=== PATIENT | female | born 1965 | race Caucasian/White ===

== ENCOUNTER → 2017-08-04 11:53 | Outpatient (CLI) | payer OTHER, SELFPAY ==
[2017-08-04 13:11] LABS: T4 Total, Thyroxin 10.5 ug/dL (4.8-13.9); Thyroid Stim Hormone (TSH) 1.49 uIU/mL (0.358-3.74)
== END ==
PROVIDERS: Family Provider Family Medicine; PCP Family Medicine; Visit Provider Internal Medicine Cardiovascular Disease
DX: R07.9 Chest pain, unspecified (principal); I31.3 Pericardial effusion (noninflammatory); I31.4 Cardiac tamponade
CPT/HCPCS: 36415; 84436; 84443

== ENCOUNTER → 2017-08-25 06:35 | Outpatient (CLI) | payer OTHER, SELFPAY ==
--- NOTE | 2017-08-25 06:38 | ECHOCS_ITS ---
Reason For Study: Chest Pain Procedure This was a 2D Doppler, Color Flow transthoracic echocardiogram. The study was technically difficult. Contrast injection was performed. Exam performed in department. Left Ventricle Normal LV size. Moderate concentric left ventricular hypertrophy. Left ventricular systolic function is normal. The estimated ejection fraction is 60 %. Normal diastology for age. No regional wall motion abnormalities noted. Right Ventricle Normal RV size. Normal systolic function. Atria Normal left atrium. Normal right atrium. Bubble contrast study negative for right to left interatrial shunt. Tricuspid Valve Normal tricuspid valve. Mild tricuspid valve insufficiency. Aortic Valve The aortic valve is not well visualized. Pulmonic Valve Normal pulmonic valve. Great Vessels Normal aortic root. The pulmonary artery is normal size. Normal inferior vena cava. Pericardium/Pleural No pericardial effusion. Medication Performed a rapid injection of agitated mix of 9 cc saline and 1cc air to assess for atrial septal defect. Diluted definity 1.5ml given slow IV push to enhance endocardial definition. MMode/2D Measurements & Calculations LVIDd: 4.6 cm IVSd: 1.3 cm Ao root diam: 2.6 cm LVIDs: 2.9 cm LVPWd: 1.5 cm RVDd: 3.7 cm FS: 37.5 % LAV(MOD-sp4): 55.0 ml LVAd ap4: 32.5 cm2 SV(MOD-sp4): 65.2 ml EDV(MOD-sp4): 104.4 ml EDV(sp4-el): 109.9 ml LVAs ap4: 17.1 cm2 ESV(MOD-sp4): 39.2 ml ESV(sp4-el): 40.1 ml EF(MOD-sp4): 62.4 % EF(sp4-el): 63.6 % SV(sp4-el): 69.9 ml LA A4 area: 19.1 cm2 RA A4 area: 13.6 cm2 Time Measurements MV dec time: 0.26 sec Doppler Measurements & Calculations MV E max piotr: 89.4 cm/sec Lat Peak E' Piotr: 10.8 cm/sec Med Peak E' Piotr: 7.2 cm/sec MV A max piotr: 74.6 cm/sec E/E' lat: 8.2 E/E' med: 12.4 MV E/A: 1.2 MV V2 max: 118.5 cm/sec MV P1/2t max piotr: 120.4 cm/sec Ao V2 max: 157.0 cm/sec MV max P.6 mmHg MV P1/2t: 104.4 msec Ao max P.9 mmHg MV V2 mean: 65.1 cm/sec MV dec slope: 337.8 cm/sec2 Ao V2 mean: 107.3 cm/sec MV mean P.0 mmHg MVA(P1/2t): 2.1 cm2 Ao mean P.1 mmHg MV V2 VTI: 37.5 cm Ao V2 VTI: 36.5 cm LV V1 max: 116.1 cm/sec PA V2 max: 142.5 cm/sec TR max piotr: 220.0 cm/sec LV V1 max P.4 mmHg TR max P.4 mmHg LV V1 mean P.8 mmHg LV V1 mean: 78.6 cm/sec LV V1 VTI: 26.7 cm Interpretation Summary Normal LV size. Moderate concentric left ventricular hypertrophy. Left ventricular systolic function is normal. The estimated ejection fraction is 60 %. Normal diastology for age. Mild tricuspid valve insufficiency. Ordering Physician: Kirk Ford Referring Physician: Kirk Ford Performed By: Lance Abreu RCS
--- NOTE | 2017-08-25 11:09 | STRESSREP ---
Stress Test Report Pharmacologic myocardial perfusion stress test. 52-year-old lady with a history of chest pain. Stress protocol: Resting EKG demonstrates sinus bradycardia with a rate of 57 bpm normal intervals and noted resting blood pressure 124/76 meters of mercury. 0.4 mg of regadenoson was infused per usual protocol followed Intravenous saline flush injection. The maximum heart rate attained was 81 bpm which was sinus rhythm and was 48% of maximum predicted heart rate the maximum workload was 1 metabolic equivalent. Patient maintained sinus rhythm throughout the recording. At rest there were no ST or T-wave changes noted suggest ischemia. Peak infusion no ST or T-wave changes were noted suggest ischemia. Resting blood pressure 724/76 with a final blood pressure 112/68. No clinical angina was noted. Myocardial perfusion protocol. 15.0 mCi of technetium 99m sestamibi was injected at rest. 0.4 mg regadenoson was infused per usual protocol peak infusion 44.8 mCi of technetium 99m sestamibi was injected stress images were obtained stress and rest images were reconstructed and compared in the short axis vertical long and horizontal long axis. Gated images were also obtained. Perfusion SPECT analysis: Review of the stress images demonstrate mildly reduced uptake of tracer noted in the anterior wall. The septum inferior wall and lateral wall appear to be well perfused. On the resting images there is improvement on the anterior wall perfusion suggesting anterior wall ischemia of a mild to moderate degree. Gated SPECT analysis: The gated ejection fraction is noted to be 77%. Conclusion: Abnormal pharmacologic myocardial perfusion stress test with evidence of mild to moderate anterior ischemia. Preserved ejection fraction.
== END ==
PROVIDERS: Family Provider Family Medicine; PCP Family Medicine; Visit Provider Internal Medicine Cardiovascular Disease
DX: R07.9 Chest pain, unspecified (principal); I31.3 Pericardial effusion (noninflammatory); I31.4 Cardiac tamponade
CPT/HCPCS: 78452; 93017; 93306; A9500; Q9957; A4216; C8929; J2785

== ENCOUNTER → 2017-08-31 07:51 | Outpatient (CLI) | payer OTHER, SELFPAY ==
--- NOTE | 2017-08-31 07:56 | RAD_ITS ---
STUDY: X-RAY CHEST REASON FOR EXAM: Female, 52 years old. SOB/DYSPNEA; ABNORMAL STRESS TEST TECHNIQUE: Frontal and lateral views of the chest. COMPARISON: None. FINDINGS: The lungs are clear and expanded. There is no demonstrated pleural abnormality. Normal size heart. Normal mediastinum and darin. Normal visualized pulmonary arteries. Normal visualized aortic arch and descending thoracic aorta. Normal visualized thoracic spine. Normal visualized ribs, clavicles, and shoulders. There is no demonstrated abnormality of the visualized soft tissue structures of the upper abdomen. RAD/Chest PA and Lateral IMPRESSION: Normal x-ray examination of the chest. Electronically Signed: Poli Solo MD at 20:15 EDT Tel , Service support ,
== END ==
PROVIDERS: Family Provider Family Medicine; PCP Family Medicine; Visit Provider Internal Medicine Cardiovascular Disease
DX: I48.0 Paroxysmal atrial fibrillation (principal); I10 Essential (primary) hypertension; E66.01 Morbid (severe) obesity due to excess calories; I31.3 Pericardial effusion (noninflammatory); I31.4 Cardiac tamponade; R07.9 Chest pain, unspecified; R06.09 Other forms of dyspnea; R94.39 Abnormal result of other cardiovascular function study
CPT/HCPCS: 71046

== ENCOUNTER → 2017-09-06 09:36 | Day surgery (SDC) | payer OTHER, SELFPAY ==
[2017-08-31 08:47] LABS: Absolute Lymphocyte Count 2.06 X10^3/ul (0.83-4.51); Absolute Neutrophil Count 5.2 X10^3/uL (2.0-7.7); Basophil# 0.03 X10^3/uL; Basophil% 0.4 % (0-1); Eosinophil# 0.21 X10^3/uL; Eosinophils% 2.6 % (0-5); Hematocrit 34.9 % (37-47); Hemoglobin 11.6 g/dl (12.0-15.0); Lymphocyte # 2.06 X10^3/ul (4.0); Lymphocyte % 25.6 % (19-41); Mean Corp Hgb Conc 33.2 g/gl (32-36); Mean Corpuscular Hgb 29.2 pg (27.0-32.0); Mean Corpuscular Volume 87.9 fL (81-99); Monocyte# 0.53 X10^3/uL; Monocyte% 6.6 % (0-10); Neutrophil # 5.22 X10^3/uL (2.7-7.7); Neutrophil % 64.7 % (47-70); Platelet Count 266 K/mm3 (150-450); RBC Distribution Width SD 40.6 fl (35.1-43.9); Red Blood Count 3.97 M/mm3 (4.2-5.4); White Blood Count 8.1 K/mm3 (4.4-11.0)
[2017-08-31 08:51] LABS: POSITIVE COUNT NO; POSITIVE DIFFERENTIAL NO; POSITIVE MORPHOLOGY NO
[2017-08-31 08:54] LABS: International Normalized Ratio 0.9; Prothrombin Time (Protime)PT. 12.4 SECONDS (11.7-14.9)
[2017-08-31 09:04] LABS: Anion Gap 6 (5-15); BUN 24 mg/dL (7-18); BUN/Creat Ratio 29.8 RATIO (10-20); Calcium,Total 8.6 mg/dL (8.5-10.1); Chloride 104 mmol/L (98-107); Creatinine, Serum 0.81 mg/dL (0.55-1.02); EST Glomerular Filtration Rate 79 mL/min (>60); Est Glom Filt Rate - Afr Amer 95 mL/min (>60); Glucose 119 mg/dL (74-106); Potassium 4.2 mmol/L (3.5-5.1); Sodium Level 137 mmol/L (136-145)
[2017-09-03 12:22] VITALS: BMI 51.2
--- NOTE | 2017-09-06 10:35 | PN_ITS ---
Progress Note HPI Details: SHADE HUNTER, is a 52 F who presents to the clinical laboratory assistant for a left heart catheterization. She has a history of pericardial effusion status post pericardial window in 2014 and hypertension. She expressed some chest pain after last office visit and underwent a nuclear stress test. This was considered to be abnormal. Pt. denies chest, arm, jaw, or neck discomfort. She continues to have back pain. Her exercise tolerance is stable. Pt. denies symptoms of CHF, palpitations, lightheadedness, near syncope, or syncopal episodes. Pt. denies edema or claudication issues. Pt. denies orthopnea, PND, fever, chills, blood in urine, blood in stool, myalgia, or unexplainable fatigue. She states occasional dizziness. Intake Vital Signs 09/06/17 Height 5 ft 5 in 09/06/17 Weight: 308 lb 09/06/17 Body Mass Index (BMI) 51.2 09/06/17 Blood Pressure 144/72 09/06/17 Blood Pressure Location Lt radial 09/06/17 Blood Pressure Position Semi-Fowlers 09/06/17 Respiratory Rate 16 09/06/17 Pulse Rate 60 09/06/17 Pulse Source Monitor 09/06/17 Temperature 97.6 F 09/06/17 Pulse Ox 99 09/06/17 Oxygen Delivery Method room air Intake Visit Reasons: Amb Documentation Allergies sulfamethoxazole Adverse Reaction (Verified 08/04/17 10:53) Unknown trimethoprim Adverse Reaction (Verified 08/04/17 10:53) Unknown Medications aspirin 81 mg tablet,delayed release 81 mg PO QDAY 08/03/17 [History Confirmed 09/03/17] lisinopril 40 mg tablet 40 mg PO QDAY 08/03/17 [History Confirmed 09/03/17] albuterol sulfate HFA 90 mcg/actuation aerosol inhaler 2 puff INHALATION Q6H PRN 08/04/17 [History Confirmed 09/03/17] citalopram 20 mg tablet 40 mg PO QDAY tab 08/04/17 [History Confirmed 09/03/17] fluticasone 50 mcg/actuation blister powder for inhalation 1 inh INHALATION QDAY ea 08/04/17 [History Confirmed 09/03/17] insulin aspart U-100 100 unit/mL subcutaneous pen 26 unit SC TID ml 08/04/17 [ History Confirmed 09/03/17] insulin glargine (U-100) 100 unit/mL (3 mL) subcutaneous pen 80 unit SC QDAY ml 08/04/17 [History Confirmed 09/03/17] lorazepam 1 mg tablet 1 mg PO QDAY PRN tab 08/04/17 [History Confirmed 09/03/17 ] clopidogrel 75 mg tablet 75 mg PO QDAY #30 tab 08/30/17 [Rx Confirmed 09/03/17] PFSH Medical History Abnormal cardiovascular stress test (Acute) Dyspnea on exertion (Acute) Chest pain (Acute) Pericardial effusion with cardiac tamponade (Resolved ~02/2014) Morbid obesity (Chronic) Paroxysmal atrial fibrillation (Chronic) Hypertension (Chronic) Depression (Chronic) Nicotine abuse (Chronic) Obstructive sleep apnea (Chronic) Type 2 diabetes mellitus without complications (Chronic) Surgical History H/O dilation of urethra (Chronic) History of appendectomy (Chronic) History of cataract surgery (Chronic) Hx of cholecystectomy (Chronic) Status post LASIK surgery of both eyes (Chronic) pericardial window (Chronic 02/16/14) Family History Mother Myocardial infarction age 71 CAD (coronary artery disease) stents Social History Smoking Status: Former smoker ROS Const Const: Positive for fatigue; negative for weakness, difficulty sleeping, frequent falls, headache(s) or excessive sweating Eyes Eyes: Negative for loss of peripheral vision, transient loss of vision, blurry vision or double vision ENT ENT: Positive for dizziness; negative for headache(s) or balance problems Cardio Chest Pain: No Edema: None Muscle aches with walking: None Resp Respiratory: Positive for SOB with activity (increase SOB with activity, especially with warm weather); negative for SOB at rest, SOB orthopnea\SOB lying down or paroxysmal nocturnal dyspnea GI GI: Negative nausea or heartburn : Negative for hematuria Musc Musc: Negative for muscle aches/ myalgia, muscle weakness, joint pain or balance problems Skin Skin: Negative non-healing lesions, unusual bruising or rash Neuro Neuro: Positive for dizziness; negative for weakness, frequent falls, headache(s), blurry vision, double vision , lightheadedness, near syncope or syncope Keven Hematologic/Lymphatic: Negative for easy bruising Endo Endo: Positive for fatigue; negative for excessive sweating Psych Psych: Negative for anxiety or depression Allergy Allergy/Immunology: Negative for rash Cardiology Exam Const Appearance: cooperative, healthy appearing, well developed, well groomed and no acute distress Nutritional Appearance: well nourished and obese Orientation: alert, awake and oriented x3 Head Head: normal to inspection, normocephalic and atraumatic Ears: hearing grossly normal bilaterally and external ears normal Nose: external nose normal, nasal mucous membranes and turbinates normal, nares normal, septum normal, no nasal discharge Face and Sinus: face symmetric Mouth: oral mucosae normal, tongue normal, oropharynx normal and moist mucous membranes Teeth and gingiva: dentition normal Throat: posterior oropharynx normal, tonsils normal and uvula midline Eyes General: appearance normal, both eyes and all related structures Eyelids: eyelids normal Conjunctivae: conjunctivae normal Pupils: PERRL, normal by confrontation and accommodation normal EOM: EOM intact bilaterally Neck Neck: normal visual inspection, trachea midline and no JVD JVD: +5 Carotids: normal carotid upstroke and bounding pulses Chest Chest inspection: normal inspection of the chest, symmetric chest movement and normal respiratory effort Auscultation: Bilateral: Clear to Auscultation Cardio Palpation: normal PMI Rate: regular rate Rhythm: regular rhythm Heart sounds: S1 normal, S2 normal and normal, physiologic split S2; negative rub, gallop or murmur GI GI: normal to inspection, soft, no hepatosplenomegaly, bowel sounds present and obese Neuro General: alert, awake, oriented x3, no focal sensory deficit, gait normal and moves all extremities Skin Skin: no rashes or lesions noted Extremities Pulses: Normal: Right Femoral Pulse, Left Femoral Pulse, Right Dorsalis Pedis Pulse, Left Dorsalis Pedis Pulse, Right Posterior Tibial Pulse, Left Posterior Tibial Pulse, Right Radial Pulse, Left Radial Pulse Lower Extremity Edema: None: Bilateral Musculoskel Musculoskeletal: No joint tenderness Psych Psychological: normal affect Supplemental Info Echocardiogram from August 2017 showed normal LV size, moderate concentric LVH, estimated ejection fraction of 60%, normal diastology for age, and mild tricuspid valve insufficiency. Stress test from August 2017 was considered an abnormal pharmacologic myocardial perfusion stress test with evidence of mild to moderate anterior ischemia with a preserved ejection fraction of 77%. Assessment & Plan 1. Abnormal stress test R94.39 Plan - CHHAYA Lopez Patient's stress test from August 2017 was considered an abnormal pharmacologic myocardial perfusion stress test with evidence of mild to moderate anterior ischemia. She will undergo a heart catheterization for further evaluation. Further recommendation will be made based on results of this test. 2. Pericardial effusion with cardiac tamponade I31.3; I31.4 Plan - CHHAYA Lopez Patient's echocardiogram in August 2017 showed an estimated ejection fraction of 60%, mild tricuspid valve insufficiency, and no cardiac tamponade. Her TSH and T4 were noted to be normal after last office visit. She will continue current medications and we will continue to monitor. 3. Essential hypertension I10 Plan - CHHAYA Lopez Her blood pressure is slightly elevated. We will continue to monitor this. We will not make any medication regimen changes and this time. Plan Detail Additional Comments - CHHAYA Lopez Discussed the above patient with Dr. Ford, he agrees with the plan of care. Thank you for allowing us to participate in the patients plan of care, if you have any questions please do not hesitate to call. This note was generated using a voice recognition system and there may be incorrect words, spelling or punctuation that were not noted when reviewing the office note prior to saving. Coding Diagnoses Abnormal stress test R94.39 Pericardial effusion with cardiac tamponade I31.3; I31.4 Essential hypertension I10 Hypertension type: essential hypertension Coding Diagnoses Abnormal stress test R94.39 Pericardial effusion with cardiac tamponade I31.3; I31.4 Essential hypertension I10 Hypertension type: essential hypertension
--- NOTE | 2017-09-06 11:19 | CL.D_ITS ---
Patient Name: SHADE HUNTER Study Date: 09/06/2017 Performing: Kirk Ford MD Ht: 65 inches 165 cm : 1965 Wt: 309.1 lbs 140 kg Age: 52 Gender: female BSA: 2.38 PROCEDURE(S) PERFORMED [id number]-FBH/COR/LV CLINICAL PROFILE AND INDICATIONS Indications: Suspected CAD Heart Failure: None CONCLUSIONS Normal coronary arteries RECOMMENDATIONS Medical therapy DESCRIPTION OF PROCEDURE The patient arrived to the procedure lab. The risks and benefits of the procedure as well as a full d escription of our services here and current unavailability of surgical backup were fully explained to the patient and/or their significant other prior to the catheterization. The Timeout was completed, verifying the correct patient and procedure. The patient's procedural site was prepped and draped in the usual fashion. Local anesthetic was given subcutaneously to right radial region with Lidocaine 2% . Using a modified Seldinger technique, arterial access was obtained via the right radial artery, a 6 Fr sheath was inserted. Right Coronary Artery selective angiography was then performed in multiple v iews using a 5 Fr. 4.0 Malone catheter. Left Coronary Artery selective angiography was performed in mu ltiple views using a 5 Fr. 4.0 Malone catheter. Left Ventriculography was performed in MOULTON projection using a 5 Fr. Pigtail catheter. LV to AO pullback pressures were then recorded.The arterial sheath wa s pulled and a TR Band was applied for hemostasis-15 cc air CORONARY ANGIOGRAPHY DOMINANCE: Right Dominant LEFT HEART ASSESSMENT Left Ventricular Ejection Fraction: by LV Gram 60 % Normal LV wall motion Normal Left Ventricular systolic function LEFT MAIN: Angiographically normal LEFT ANTERIOR DECENDING ARTERY: Mild luminal irregularities CIRCUMFLEX ARTERY: Mild luminal irregularities RIGHT CORONARY ARTERY: Angiographically normal AORTIC ROOT: Angiographically normal COMPLICATIONS No Complications PROCEDURE MEDICATIONS Fentanyl 50 mcg IV Versed 1 mg IV Oxygen: 2 L/min via nasal cannula Heparin diluted in 23cc Heparinized saline. Patient given 10cc IA of this solution. 09/06/2017 11:00: 20 Verapamil 2.5mg, Ntg 100mcgs, 2000 units of Heparin diluted in 23cc Heparinized saline. Patient give n 10cc IA of this solution. 09/06/2017 11:00:20 SUMMARY OF HEMODYNAMIC DATA Time AIR REST ECG 10:03:19 AO 129/69 (93) SA 11:03:08 LV 131/2, 16 11:09:53 LV 132/5, 18 11:10:00 LV 129/3, 20 11:11:19 LVp 134/4, 19 11:11:23 AOp 140/69 (98) 11:11:28 Signed By Kirk Ford MD On 09/06/2017 11:18:32 Kirk Ford MD
== END ==
PROVIDERS: Family Provider Family Medicine; PCP Family Medicine; Visit Provider Internal Medicine Cardiovascular Disease
DX: R94.39 Abnormal result of other cardiovascular function study (principal); I31.3 Pericardial effusion (noninflammatory); I31.4 Cardiac tamponade; I10 Essential (primary) hypertension; I48.0 Paroxysmal atrial fibrillation; E66.01 Morbid (severe) obesity due to excess calories; Z68.43 Body mass index [BMI] 50.0-59.9, adult; E11.9 Type 2 diabetes mellitus without complications; F32.9 Major depressive disorder, single episode, unspecified; Z87.891 Personal history of nicotine dependence; Z79.82 Long term (current) use of aspirin; Z79.51 Long term (current) use of inhaled steroids; Z79.4 Long term (current) use of insulin
CPT/HCPCS: 36415; 80048; 85025; 85610; 93458; 99152; J7040; Q9967; C1769; C1894

== ENCOUNTER 2018-09-23 17:10 | Emergency (ER) | payer OTHER, SELFPAY ==
[2018-01-16 12:29] VITALS: BMI 53.2
[2018-09-23 17:14] VITALS: BP 168/86; PULSE 75; RESP 20; TEMP 36.2; O2SAT 99; BMI 56.4
--- NOTE | 2018-09-23 17:19 | ED.RN ---
CALLED JAYSON FROM [facility] AND SHE IS STATES THE PT DOES NOT NEED TO HAVE DRUG SCREEN TEST.
--- NOTE | 2018-09-23 17:34 | CT_ITS ---
STUDY: CT BRAIN WITHOUT CONTRAST REASON FOR EXAM: Female, 53 years old. Injury at work. RADIATION DOSAGE (If Supplied By Facility): CTDIvol = ( 44.99 ) mGy, DLP = ( 796.11 ) mGycm TECHNIQUE: Transaxial CT imaging of the brain was performed without administration of intravenous contrast material. Individualized dose optimization techniques were used for this CT. COMPARISON: No relevant priors. FINDINGS: Normal soft tissue structures. Normal calvarium. Normal size ventricles and extra-axial spaces for the patient's age. Normal white matter tracts of the cerebral hemispheres. Normal basal ganglia and thalami. Normal brainstem. Normal cerebellum. There is no intracranial hemorrhage. There are no findings of an acute ischemic infarction. Normal visualized paranasal sinuses. CT/Brain/Head without Contrast IMPRESSION: Normal unenhanced CT scan of the brain. Electronically Signed: Darin Newton DO at 18:20 EDT Tel [phone], Service support ,
--- NOTE | 2018-09-23 17:36 | CT_ITS ---
STUDY: CT CERVICAL SPINE WITHOUT CONTRAST REASON FOR EXAM: Female, 53 years old. Injury at work. RADIATION DOSAGE (If Supplied By Facility): CTDIvol = ( 34.38 ) mGy, DLP = ( 590.06 ) mGycm TECHNIQUE: High resolution transaxial imaging was performed without contrast material. Sagittal and coronal images were reconstructed. Individualized dose optimization techniques were used for this CT. COMPARISON: None FINDINGS: Normal craniovertebral junction. Normal anterior atlantoaxial articulation. Normal odontoid process. There is straightening of the normal cervical lordosis. Normal vertebral bodies and posterior osseous elements. C2-3: Normal endplates. Normal disc height and morphology. Normal central canal and intervertebral neuroforamina. C3-4: Normal endplates. Normal disc height and morphology. Normal central canal and intervertebral neuroforamina. C4-5: Normal endplates. Normal disc height and morphology. Normal central canal and intervertebral neuroforamina. C5-6: Mild loss of disc height with minimal endplate spondylosis. Facet and uncovertebral joint degenerative change.. Normal central canal and intervertebral neuroforamina. C6-7: Normal endplates. Mild loss of disc height. Facet joint degenerative change. Normal central canal and intervertebral neuroforamina. C7-T1: Normal endplates. Normal disc height and morphology. Normal central canal and intervertebral neuroforamina. Normal visualized soft tissue structures. CT/Spine Cervical without Contras IMPRESSION: No evidence of acute fracture or dislocation. There is straightening of the cervical lordosis which may be positional or due to muscular strain. Electronically Signed: Darin Newton DO at 18:38 EDT Tel [phone], Service support ,
--- NOTE | 2018-09-23 17:39 | ED.VISSUMM ---
- ER Visit Summary Date of Service: 09/23/18 Chief Complaint: Fall History of Present Illness: The patient is a 53 F who presents with a fall that occurred today. Patient states she went to sit down and missed a chair. Patient states she fell back. Patient thinks she hit her head but did not lose consciousness. Patient complains of pain in her head, neck, back, right hand, and right ankle. Patient describes the pain is dull. Patient states her headache is worse with bright lights. Patient denies any paresthesias or weakness. Patient denies any nausea or vomiting. Patient states she was able to ambulate after the fall. Physical Examination: Vital signs are stable. Patient is afebrile. Patient is in no acute distress. Oral mucosa is pink and moist. Neck is supple. Trachea is midline. There is no JVD noted. Heart was regular rate and rhythm. Lungs are clear and equal bilaterally. Abdomen is soft and nontender. Cranial nerves II through XII are intact. Strength is 5/5 bilaterally upper and lower extremities. There are no sensory deficits noted. There is mild tenderness over the occiput and cervical spine. There is no bony crepitance or step-off. There is good range of motion. There is no tenderness over the left ankle or left hand. There is good range of motion of the upper and lower extremities. Test Results: CT scan of the brain and cervical spine were obtained and were within normal limits. Emergency Department Course and Treatment: Patient was ordered IV fluids, Reglan, and morphine. Patient refused IV fluids and IV medications. Patient requested Naprosyn instead. Patient was given a dose of Naprosyn. Patient was feeling better on reevaluation. Patient was instructed to rest in a dark quiet room. Patient was instructed to follow-up with her primary care physician in 5 to 7 days. Patient understood and was agreeable with the plan. All questions were answered. Disposition: Discharge home Impression: 1. Headache 2. Cervical strain 3. Fall This note was generated with [employer] dictation software. It may contain incorrect words, spelling, and punctuation that were not noted in review of the chart prior to signing ED Disposition - Plan for ED Patient: Disposition: Home or Assisted Living Diagnosis: Headache, Cervical strain, acute Instructions: FALL, Mechanical, HEADACHE, Unspecified, Neck Sprain/Strain Referrals: Alex Chavez MD [Primary Care Provider] - 5-7 Days
[2018-09-23] MEDS: Naproxen 250 MG Tablet 500 MG PO (18:08)
--- NOTE | 2018-09-23 18:22 | ED.RN ---
PT REFUSES IV, MORPHINE AND REGLAN. REQUESTED NAPROXEN INSTEAD. DR MIN MADE AWARE, ORDER ENTERED.
--- NOTE | 2018-09-23 18:56 | ED.RN ---
RN CALLED FOR EKG, PULLED OLD EKGS FOR
--- NOTE | 2018-09-23 19:13 | EKG12_ITS ---
Test Reason : FALL/CP Blood Pressure : / mmHG Vent. Rate : 076 BPM Atrial Rate : 076 BPM P-R Int : 182 ms QRS Dur : 094 ms QT Int : 390 ms P-R-T Axes : 053 014 051 degrees QTc Int : 438 ms Normal sinus rhythm Normal ECG Confirmed by TAMRA ORDOÑEZ, LUIS ([id number]), editor sound MK SEYMOUR ([id number]) on 09/29/2018 1:08:47 PM Referred By: Confirmed By:LUIS BARBOZA MD
[2018-09-23 20:00] VITALS: BP 159/67; PULSE 74; RESP 16; O2SAT 96
[2018-09-23 20:27] VITALS: BP 159/67; PULSE 74; RESP 16; O2SAT 96
== END 2018-09-23 20:30 | disposition home or self-care (01) ==
PROVIDERS: Emergency Provider Emergency Medicine; Family Provider Family Medicine; PCP Family Medicine
DX: R51 Headache (principal); S16.1XXA Strain of muscle, fascia and tendon at neck level, initial encounter; E66.9 Obesity, unspecified; J45.909 Unspecified asthma, uncomplicated; E11.9 Type 2 diabetes mellitus without complications; I10 Essential (primary) hypertension; F32.9 Major depressive disorder, single episode, unspecified; Z79.4 Long term (current) use of insulin; Z79.51 Long term (current) use of inhaled steroids; Z79.82 Long term (current) use of aspirin; Z79.899 Other long term (current) drug therapy; W07.XXXA Fall from chair, initial encounter; Y93.89 Activity, other specified; Y92.89 Other specified places as the place of occurrence of the external cause; Y99.8 Other external cause status
CPT/HCPCS: 70450; 72125; 93005; 99283

== ENCOUNTER → 2018-10-11 | Outpatient (CLI) | payer OTHER, SELFPAY ==
[2018-10-06 09:45] VITALS: BMI 56.4
--- NOTE | 2018-10-11 17:12 | RAD_ITS ---
STUDY: X-RAY - LUMBAR SPINE REASON FOR EXAM: Female, 53 years old. Status post fall 2 weeks ago TECHNIQUE: 3 view(s) of the lumbar spine were obtained. COMPARISON: None FINDINGS: Normal lumbar lordosis. There is no substantial scoliosis. There is grade 1 anterolisthesis at L4-L5 and a suggestion of a pars defect and/or degenerative change. There is mild spondylosis. Normal vertebral bodies and endplates. Normal disc space heights. There is postoperative change in the right upper quadrant status post cholecystectomy. RAD/Lumbar Spine 2 or 3 Views IMPRESSION: Age-indeterminate grade 1 anterolisthesis L4-L5. Facet arthropathy. No evidence of acute loss of height. Electronically Signed: Estrella Avila MD at 19:03 EDT Tel , Service support ,
== END | disposition home or self-care (01) ==
LOC: MTRAD 17:12
PROVIDERS: Family Provider Family Medicine; PCP Family Medicine; Referring Provider Nurse Practitioner Family; Visit Provider Nurse Practitioner Family
DX: S30.0XXA Contusion of lower back and pelvis, initial encounter (principal); S39.012A Strain of muscle, fascia and tendon of lower back, initial encounter
CPT/HCPCS: 72100

== ENCOUNTER → 2021-11-01 | Outpatient (CLI) | payer OTHER, SELFPAY ==
[2021-11-01 10:20] LABS: ALB/GLOB Ratio 0.7 RATIO (0.9-2.4); AST(SGOT) 10 U/L (15-37); Alanine Aminotransfer ALT/SGPT 17 U/L (13-56); Alkaline Phosphatase 103 U/L (45-117); Anion Gap 5 (5-15); BUN 21 mg/dL (7-18); BUN/Creat Ratio 24.4 RATIO (10-20); Calcium,Total 8.7 mg/dL (8.5-10.1); Chloride 105 mmol/L (98-107); Cholesterol 176 mg/dL (200); Creatinine, Serum 0.86 mg/dL (0.55-1.02); EST Glomerular Filtration Rate 72 mL/min (>60); Est Glom Filt Rate - Afr Amer 87 mL/min (>60); Globulin 4.3 g/dL (2.2-4.2); Glucose 203 mg/dL (74-106); High Density Lipoprotein 45 mg/dL; Potassium 5.4 mmol/L (3.5-5.1); Protein, Total 7.3 g/dL (6.4-8.2); Sodium Level 139 mmol/L (136-145); Triglycerides 85 mg/dL; Very Low Density Lipoprotein 17 mg/dL (5-40)
== END | disposition home or self-care (01) ==
LOC: LAB 09:41
PROVIDERS: PCP Family Medicine; Referring Provider Nurse Practitioner Family; Visit Provider Nurse Practitioner Family
DX: E11.9 Type 2 diabetes mellitus without complications (principal); I27.20 Pulmonary hypertension, unspecified; I10 Essential (primary) hypertension; G47.33 Obstructive sleep apnea (adult) (pediatric); E78.2 Mixed hyperlipidemia
CPT/HCPCS: 36415; 80053; 80061; 83036

== ENCOUNTER → 2022-06-03 | Outpatient (CLI) | payer OTHER, SELFPAY ==
[2022-06-03 10:58] LABS: ALB/GLOB Ratio 0.7 RATIO (0.9-2.4); AST(SGOT) 18 U/L (15-37); Alanine Aminotransfer ALT/SGPT 25 U/L (13-56); Albumin, Serum 2.9 g/dL (3.2-5.0); Alkaline Phosphatase 130 U/L (45-117); Anion Gap 3 (5-15); BUN 18 mg/dL (7-18); BUN/Creat Ratio 19.4 RATIO (10-20); Calcium,Total 8.7 mg/dL (8.5-10.1); Chloride 102 mmol/L (98-107); Cholesterol 127 mg/dL (200); Creatinine, Serum 0.93 mg/dL (0.55-1.02); EST Glomerular Filtration Rate 66 mL/min (>60); Est Glom Filt Rate - Afr Amer 80 mL/min (>60); Globulin 4.1 g/dL (2.2-4.2); Glucose 173 mg/dL (74-106); High Density Lipoprotein 52 mg/dL; Potassium 4.5 mmol/L (3.5-5.1); Sodium Level 132 mmol/L (136-145); Triglycerides 81 mg/dL; Very Low Density Lipoprotein 16 mg/dL (5-40)
[2022-06-03 10:59] LABS: Vitamin D,25 Hydroxy 23.1 ng/mL
[2022-06-03 11:29] LABS: Hemoglobin A1c 11.8 % (3.8-5.6)
== END | disposition home or self-care (01) ==
PROVIDERS: PCP Nurse Practitioner Family; Referring Provider Nurse Practitioner Family; Visit Provider Nurse Practitioner Family
DX: E78.2 Mixed hyperlipidemia (principal); E11.9 Type 2 diabetes mellitus without complications; E55.9 Vitamin D deficiency, unspecified
CPT/HCPCS: 36415; 80053; 80061; 82306; 83036

== ENCOUNTER 2022-09-27 15:25 | Emergency (ER) | payer OTHER, SELFPAY ==
[2022-09-27 15:33] VITALS: BP 150/120; PULSE 94; RESP 15; TEMP 36.6; O2SAT 95
[2022-09-27 15:37] VITALS: BMI 45.3
--- NOTE | 2022-09-27 15:42 | EX.ED.DYSGE1 ---
HPI History of Present Illness Chief Complaint: Anxiety Narrative Narrative: Patient presents with an episode of feeling lightheaded, some nausea and felt like she was going to pass out. She was breathing fast and had tingling in her fingers and toes. This seems to have subsided. Apparently she did not eat or drink much yesterday she felt weak, she felt better today and went to work. She does have a history of anxiety and depression, she does also have a history of of pericardial effusion with history of cardiac tamponade however she has a pericardial window. She has no fevers or chills. No headache. She did not fall. There is no vertiginous symptoms and she does not feel off balance. [facility] Medical History (Updated 09/27/22 @ 16:[address] Issac Jose MD) Abnormal cardiovascular stress test Arthritis Asthma Chest pain Chronic neck and back pain Depression Diarrhea Essential (primary) hypertension Hemorrhoids Incontinence Knee pain Lung disease Morbid obesity Nicotine abuse Obstructive sleep apnea Paroxysmal atrial fibrillation Pericardial effusion with cardiac tamponade (~02/2014) Type 2 diabetes mellitus without complications Home Medications aspirin 81 mg tablet,delayed release (Adult Aspirin Regimen) 81 mg PO QDAY 08/03/17 [History Last Taken 09/06/17] lisinopril 40 mg tablet 40 mg PO QDAY 08/03/17 [History Last Taken 09/06/17] albuterol sulfate 90 mcg/actuation aerosol inhaler 2 puff inhalation Q6H PRN Anxiety 08/04/17 [History Last Taken Unknown] citalopram 20 mg tablet 40 mg PO QDAY 08/04/17 [History Last Taken Unknown] fluticasone propionate 50 mcg/actuation blister powder for inhalation (Flovent Diskus) 1 inh inhalation QDAY 08/04/17 [History Last Taken Unknown] insulin aspart U-100 100 unit/mL (3 mL) subcutaneous pen (Novolog FlexPen U-100 Insulin aspart) 26 unit subcut TID 08/04/17 [History Last Taken Unknown] insulin glargine 100 unit/mL (3 mL) subcutaneous pen (Lantus Solostar U-100 Insulin) 80 unit subcut QDAY 08/04/17 [History Last Taken Unknown] lorazepam 1 mg tablet 1 mg PO QDAY PRN Anxiety 08/04/17 [History Last Taken Unknown] clopidogrel 75 mg tablet (Plavix) 75 mg PO QDAY #30 tabs 08/30/17 [Rx Last Taken 09/06/17] Allergy/AdvReac Type Severity Reaction Status Date / Time Antihistamines - Alkylamine Allergy Shortness Verified 09/27/22 15:35 of breath sulfamethoxazole AdvReac Unknown Verified 09/27/22 15:35 trimethoprim AdvReac Unknown Verified 09/27/22 15:35 Family History Mother Myocardial infarction age 71 CAD (coronary artery disease) stents Surgical History H/O dilation of urethra History of appendectomy History of cataract surgery History of left heart catheterization (09/06/17) Hx of cholecystectomy pericardial window (02/16/14) Status post LASIK surgery of both eyes Social History Smoking Status: Former smoker ROS ROS ED ROS Narrative Past medical history: Reviewed Medications: Reviewed Social history: Noncontributory Review of systems: All systems negative except as indicated General: No fever. Lightheadedness as in HPI Eyes: No visual changes ENT: No upper airway congestion, normal voice Neck: No neck pain Cardiovascular: No chest pain Respiratory: No shortness of breath or cough Gastrointestinal: No abdominal pain, nausea vomiting or diarrhea Musculoskeletal: Denies myalgias no difficulty with ambulation Skin: No rash Neurological: No memory loss, confusion or any focal weakness EXAM Physical Exam Narrative Exam Narrative: Physical exam General: Well nourished, Well developed, No Acute Distress Head: Normocephalic, Atraumatic Eyes: Conjunctiva not pale ENT: Dry mucous membranes Neck: Supple, Nontender, No lymphadenopathy Cardiovascular: Regular rate, Regular rhythm Respiratory: No distress, CTA bilaterally Abdomen: Soft, Nontender, Nondistended Back: Nontender, Normal Inspection. Negative for: CVA tenderness Extremities: Nontender, No edema Skin: Normal color, No rash Neurological: Alert, Normal Strength, Normal Sensation Const Vital Signs: 09/27/22 15:33 Temperature 98 F Temperature Source Temporal Pulse Rate 94 Respiratory Rate 15 Blood Pressure 150/120 H Blood Pressure Mean 130 Pulse Ox 95 MDM MDM MDM Narrative Medical decision making narrative: EKG: Sinus rhythm with a rate of 92. Normal MT interval. QTc is prolonged at 489. No ischemic changes. Interpreted by emergency doctor. Telemetry: Sinus rhythm with a rate in the 90s without ectopy. Patient's initial blood pressure was quite elevated however this improved significantly. She is found to be hyperglycemic and has a very slight JAYDEN. This is likely secondary to the blood sugar as well as her not drinking much water at all yesterday. Since first seeing her she has developed a left eye floater which she has had in the past. I will follow-up with ophthalmology. I do not believe stat ophtho consult is needed, she has no vision loss she does not feel like the curtain is closing. Otherwise she needs her blood sugar control. She knows how to do this I talked to her about it. She is quite dehydrated and I considered admission however I believe if she gets 2 L of fluids and she goes home and drinks water she should be improving on her own. If anything changes she is to return she understands this. I talked to family member who is also in the room and gave me history. Lab Data Labs: Laboratory Results - last 24 hr 09/27/22 15:52 WBC 13.3 H RBC 4.01 L Hgb 11.4 L Hct 35.6 L MCV 88.8 MCH 28.4 MCHC 32.0 RDW Std Deviation 41.9 RDW Coeff of Linda 12.8 Plt Count 394 MPV 9.6 Immature Gran % (Auto) 0.400 Neut % (Auto) 75.1 H Lymph % (Auto) 16.8 L [place] % (Auto) 6.3 Eos % (Auto) 0.9 Baso % (Auto) 0.5 Absolute Neuts (auto) 10.0 H Absolute Lymphs (auto) 2.24 Nucleated RBC % 0 Sodium 131 L Potassium 4.2 Chloride 98 Carbon Dioxide 27.0 Anion Gap 6 BUN 22 H Creatinine 1.60 H Estim Creat Clear Calc 34.07 Est GFR (MDRD) Af Amer 42 L Est GFR (MDRD) Non-Af 35 L BUN/Creatinine Ratio 13.8 Glucose 475 H* Calcium 8.4 L Total Bilirubin 0.60 AST 15 ALT 22 Alkaline Phosphatase 128 H Troponin I High Sens 26 Total Protein 6.6 Albumin 2.9 L Globulin 3.7 Albumin/Globulin Ratio 0.8 L Discharge Plan Triage Chief Complaint: Anxiety ED Provider: Issac Jose Dx/Rx/DC Orders Clinical Impression: Acute dehydration, Morbid obesity, Essential (primary) hypertension, JAYDEN (acute kidney injury), Acute hyperglycemia, Near syncope, Vitreous floaters of left eye Instructions: Blood Sugar Check Steps, ED Diabetic Hyperglycemia, ED Dehydration (Adult) Prescriptions: No Action insulin glargine [Lantus Solostar U-100 Insulin] 100 unit/mL (3 mL) insulin pen 80 unit SC QDAY insulin aspart U-100 [Novolog FlexPen U-100 Insulin] 100 unit/mL insulin pen 26 unit SC TID lorazepam 1 mg tablet 1 mg PO QDAY PRN (Reason: Anxiety) fluticasone propionate [Flovent Diskus] 50 mcg/actuation blister with device 1 inh INHALATION QDAY albuterol sulfate 90 mcg/actuation HFA aerosol inhaler 2 puff INHALATION Q6H PRN (Reason: Anxiety) aspirin [Adult Aspirin Regimen] 81 mg tablet,delayed release (DR/EC) 81 mg PO QDAY lisinopril 40 mg tablet 40 mg PO QDAY citalopram 20 mg tablet 40 mg PO QDAY clopidogrel [Plavix] 75 mg tablet 75 mg PO QDAY Qty: 30 1RF Primary Care Provider: Collins Mccall NP Referrals: Reginald Robles MD [Med Staff - Active Staff] - (for an eye appointment tomorrow) Collins Mccall CROSSCUTTER, CROSSCUTTER-C [Primary Care Provider] - 3-5 Days Disposition Disposition: Home, Self Care
[2022-09-27] MEDS: 0.9% Normal Saline 1,000 ML 1000 ML IV (16:00)
[2022-09-27 16:02] LABS: Absolute Lymphocyte Count 2.24 X10^3/uL (0.83-4.51); Basophil# 0.07 X10^3/uL; Basophil% 0.5 % (0-1); Eosinophil# 0.12 X10^3/uL; Eosinophils% 0.9 % (0-5); Hematocrit 35.6 % (37-47); Hemoglobin 11.4 g/dL (12.0-15.0); Lymphocyte # 2.24 X10^3/ul (0.83-4.51); Lymphocyte % 16.8 % (19-41); Mean Corpuscular Hgb 28.4 pg (27.0-32.0); Mean Corpuscular Volume 88.8 fL (81-99); Mean Platelet Vol. 9.6 fl (6.2-12.0); Monocyte# 0.84 X10^3/uL; Monocyte% 6.3 % (0-10); NRBC Flagged by Analyzer 0 % (0-5); Neutrophil # 9.98 X10^3/uL (2.7-7.7); Neutrophil % 75.1 % (47-70); Platelet Count 394 K/mm3 (150-450); RBC Distribution Width CV 12.8 % (11.6-14.6); RBC Distribution Width SD 41.9 fl (35.1-43.9); Red Blood Count 4.01 M/mm3 (4.2-5.4); White Blood Count 13.3 K/mm3 (4.4-11.0)
[2022-09-27 16:25] LABS: ALB/GLOB Ratio 0.8 RATIO (0.9-2.4); AST(SGOT) 15 U/L (15-37); Alanine Aminotransfer ALT/SGPT 22 U/L (13-56); Albumin, Serum 2.9 g/dL (3.2-5.0); Alkaline Phosphatase 128 U/L (45-117); Anion Gap 6 (5-15); BUN 22 mg/dL (7-18); BUN/Creat Ratio 13.8 RATIO (10-20); Calcium,Total 8.4 mg/dL (8.5-10.1); Chloride 98 mmol/L (98-107); EST Glomerular Filtration Rate 35 mL/min (>60); Est Glom Filt Rate - Afr Amer 42 mL/min (>60); Estimated Creatinine Clearance 34.07 ml/min; Globulin 3.7 g/dL (2.2-4.2); Glucose 475 mg/dL (74-106); Potassium 4.2 mmol/L (3.5-5.1); Protein, Total 6.6 g/dL (6.4-8.2); Sodium Level 131 mmol/L (136-145); Troponin-I HS 26 pg/mL (3.0-54.0)
[2022-09-27] MEDS: 0.9% Normal Saline 1,000 ML 999 ML IV (17:10)
[2022-09-27 17:14] VITALS: BP 161/85
== END 2022-09-27 18:03 | disposition home or self-care (01) ==
PROVIDERS: Emergency Provider Emergency Medicine; PCP Nurse Practitioner Family; Visit Provider Emergency Medicine
DX: F41.9 Anxiety disorder, unspecified (principal); N17.9 Acute kidney failure, unspecified; E11.65 Type 2 diabetes mellitus with hyperglycemia; E66.01 Morbid (severe) obesity due to excess calories; H43.392 Other vitreous opacities, left eye; E86.0 Dehydration; R55 Syncope and collapse; I10 Essential (primary) hypertension; Z87.891 Personal history of nicotine dependence; J45.909 Unspecified asthma, uncomplicated
CPT/HCPCS: 80053; 84484; 85025; 93005; 96360; 96361; 99284; A4216

== ENCOUNTER 2023-01-05 09:13 | Inpatient (IN) | payer OTHER, SELFPAY ==
[2023-01-05] VITALS (14 sets, daily range): BP systolic 98–159; BP diastolic 46–88; PULSE 80–108; RESP 16–24; TEMP 36.1–38.4; O2SAT 86–100; BMI 63.7; BMI 56.2
--- NOTE | 2023-01-05 09:35 | EKG12_ITS ---
Test Reason : SOB Blood Pressure : / mmHG Vent. Rate : 097 BPM Atrial Rate : 097 BPM P-R Int : 172 ms QRS Dur : 082 ms QT Int : 354 ms P-R-T Axes : 056 032 084 degrees QTc Int : 449 ms Normal sinus rhythm Nonspecific T wave abnormality Abnormal ECG Confirmed by TAMRA ORDOÑEZ, LUIS ([id number]), newspaper editor MK SEYMOUR ([id number]) on 01/06/2023 11:03:50 AM Referred By: Confirmed By:LUIS BARBOZA MD
--- NOTE | 2023-01-05 09:36 | ED.VIS.DYS ---
HPI History of Present Illness Chief Complaint: Shortness of Breath Informant: patient and friend Narrative Narrative: 57-year-old female presenting to the emergency room with dyspnea. Patient has a history of paroxysmal atrial fibrillation, asthma, diabetes, hypertension, morbid obesity. She tells me that 2 weeks ago she had COVID. She states that beginning yesterday she is felt significantly short of breath. No significant cough. Since yesterday she has had a left chest pressure that is been constant. She denies any leg swelling. No history of DVT PE. She does not wear home oxygen. [facility] Medical History (Updated 01/05/23 @ 13:[address] Harjit Vee, ) Abnormal cardiovascular stress test Arthritis Asthma Chest pain Chronic neck and back pain Depression Diarrhea Essential (primary) hypertension Hemorrhoids Incontinence Knee pain Lung disease Morbid obesity Nicotine abuse Obstructive sleep apnea Paroxysmal atrial fibrillation Pericardial effusion with cardiac tamponade (~02/2014) Type 2 diabetes mellitus without complications Home Medications lisinopril 40 mg tablet 40 mg PO DAILY blood pressure 08/03/17 [History Last Taken 01/04/23] albuterol sulfate 90 mcg/actuation aerosol inhaler 2 puff inhalation Q6H PRN Anxiety 08/04/17 [History Last Taken Unknown] insulin glargine 100 unit/mL (3 mL) subcutaneous pen (Lantus Solostar U-100 Insulin) 63 unit subcut DAILY diabetes 08/04/17 [History Last Taken 01/04/23] lorazepam 1 mg tablet 1 mg PO DAILY PRN Anxiety 08/04/17 [History Last Taken Unknown] atorvastatin 40 mg tablet 40 mg PO DAILY cholesterol 01/05/23 [History Last Taken 01/04/23] citalopram 40 mg tablet 40 mg PO DAILY depression 01/05/23 [History Last Taken 01/04/23] glipizide 5 mg tablet, extended release 24 hr 5 mg PO DAILY blood sugar 01/05/23 [History Last Taken 01/04/23] losartan 50 mg tablet 50 mg PO DAILY blood pressure 01/05/23 [History Last Taken 01/04/23] pioglitazone 30 mg tablet 30 mg PO DAILY blood sugar 01/05/23 [History Last Taken 01/04/23] Allergy/AdvReac Type Severity Reaction Status Date / Time Antihistamines - Alkylamine Allergy Shortness Verified 09/27/22 15:35 of breath sulfamethoxazole AdvReac Unknown Verified 09/27/22 15:35 trimethoprim AdvReac Unknown Verified 09/27/22 15:35 Family History Mother Myocardial infarction age 71 CAD (coronary artery disease) stents Surgical History H/O dilation of urethra History of appendectomy History of cataract surgery History of left heart catheterization (09/06/17) Hx of cholecystectomy pericardial window (02/16/14) Status post LASIK surgery of both eyes Social History Smoking Status: Former smoker ROS ROS ED Constitutional Constitutional ED: Denies chills, fever(s) or weight loss Eyes Eyes: Denies change in vision or diplopia ENT ENT ED: Denies ear pain, rhinorrhea or sore throat Cardiovascular Cardiovascular: Reports chest pain; Denies orthopnea, palpitations or racing heartbeat Respiratory/Chest Respiratory/Chest: Reports dyspnea and dyspnea on exertion; Denies cough or orthopnea Gastrointestinal Gastrointestinal: Denies abdominal pain, diarrhea, nausea or vomiting Genitourinary Genitourinary ED: Denies dysuria, hematuria or urinary frequency Musculoskeletal Musculoskeletal: Reports back pain; Denies arthralgias or myalgias Integumentary Denies abscess or rash Neurologic Neurologic: Denies headache(s) or weakness Psychiatric Psychiatric: Denies anxiety, depression, suicidal ideation or suicidal thoughts Endocrine Endocrinology: Denies polydipsia, polyphagia or polyuria Allergic/Immunologic Allergic/Immunologic ED: Denies mouth swelling, tongue swelling or urticaria EXAM Physical Exam Const Vital Signs: 01/05/23 09:14 01/05/23 09:28 01/05/23 10:40 Temperature 97.6 F L 97.3 F L Temperature Source Temporal Temporal Pulse Rate 108 H 98 Respiratory Rate 24 H 21 H Respiratory Effort Short of Breath Labored Respiratory Pattern Tachypnea Blood Pressure 98/54 L 147/88 H Blood Pressure Mean 68 107 Pulse Ox 86 100 Oxygen Delivery Method Room Air Nasal Cannula Nasal Cannula Oxygen Flow Rate (L/min) 3.5 01/05/23 10:40 Temperature Temperature Source Pulse Rate Respiratory Rate Respiratory Effort Respiratory Pattern Blood Pressure Blood Pressure Mean Pulse Ox Oxygen Delivery Method Nasal Cannula Oxygen Flow Rate (L/min) 3.5 Positive well nourished, well developed and obese General Appearance ED: well developed Nutritional Appearance: obese HEENT Reports normocephalic, head/scalp atraumatic and moist mucous membranes Eyes PERRL and EOMs intact bilaterally Neck no lymphadenopathy, supple and no JVD Resp normal respiratory effort and clear to auscultation bilaterally Cardio regular rate, regular rhythm and no murmurs Rate: tachycardic GI normal to inspection, nondistended, normoactive bowel sounds and non-tender Palpation: soft Back/Spine no CVA tenderness and normal ROM Extremity normal to inspection General Extremety ED: Negative for edema General Extremity: Negative for edema Neuro oriented x3 and CN's II-XII intact bilaterally Sensorium / Orientation: alert Motor Exam: strength 5/5 throughout Psych mental status grossly normal Mood & Affect: Negative for depressed or tearful Skin no rashes or lesions noted and no wounds MDM MDM MDM Narrative Medical decision making narrative: White count elevated at 14.8 with hemoglobin 10.3. Platelet count of 272. BUN is 31 with a creatinine 1.44. Troponin 1 elevated 464 troponin 03/14/1990. 2 EKGs do not show any significant change between the 2 of them or from prior EKG dated September 27, 2022. My independent interpretation of the chest x-ray is no acute process. CTA of the chest does not demonstrate any pulmonary embolism. Bilateral pleural effusions were noted. No large pericardial effusion was noted. Please see radiology read for further details. Patient began to have some jaw pain and therefore a second EKG was ordered. Again this did not show any significant change. She has received aspirin. Given the elevated white count and her dyspnea and recent COVID infection cannot rule out the possibility of a pneumonia causing cardiac strain. However I cannot rule out a primary cardiac cause given her chest pain and the elevated troponins. We will admit the patient in the hospital. We have administered Rocephin and azithromycin. I will speak with the hospitalist regarding admission. History & Record Review Discussion w/independent historian: Patient and Friend Additional record(s) reviewed:: Prior labs Lab Data Attestation: I reviewed the patient's lab results. Labs: Laboratory Results - last 24 hr 01/05/23 01/05/23 09:45 11:57 WBC 14.8 H RBC 3.70 L Hgb 10.3 L Hct 33.2 L MCV 89.7 MCH 27.8 MCHC 31.0 L RDW Std Deviation 41.9 RDW Coeff of Linda 12.6 Plt Count 272 MPV 9.7 Immature Gran % (Auto) 0.500 Neut % (Auto) 89.6 H Lymph % (Auto) 2.8 L [place] % (Auto) 6.7 Eos % (Auto) 0.1 Baso % (Auto) 0.3 Absolute Neuts (auto) 13.3 H Absolute Lymphs (auto) 0.42 L Nucleated RBC % 0 Differential Comment SCANNED Sodium 132 L Potassium 4.6 Chloride 100 Carbon Dioxide 24.0 Anion Gap 8 BUN 31 H Creatinine 1.44 H Estim Creat Clear Calc 37.85 Est GFR (MDRD) Af Amer 48 L Est GFR (MDRD) Non-Af 40 L BUN/Creatinine Ratio 21.5 H Glucose 335 H Calcium 9.0 Total Bilirubin 1.10 H AST 31 ALT 41 Alkaline Phosphatase 187 H Troponin I High Sens 464 H* 491 H* B-Natriuretic Peptide 276.9 H Total Protein 7.2 Albumin 2.7 L Globulin 4.5 H Albumin/Globulin Ratio 0.6 L Radiography Diagnostic Testing: Clinical Impression(s) from Imaging Studies Chest X-Ray 01/05/23 10:00 IMPRESSION: No radiographic evidence of acute cardiopulmonary disease. Electronically Signed: Carley Adam MD at 10:33 EST Reading Location ID and State: [facility] / [place] Tel , Service support , Chest CTA 01/05/23 11:14 IMPRESSION: No demonstrated pulmonary embolism or arterial dissection. Small bilateral pleural effusions associated with minimal dependent lower lobe consolidation. Interlobular septal thickening throughout the right lung associated with scattered ill-defined nodules, a nonspecific finding may be secondary to an infectious process and/or edema, as a precautionary measure recommend follow-up chest CT in 6-8 weeks. Small hiatal hernia. Atherosclerosis. Electronically Signed: Carley Adam MD at 12:20 EST , EKG Initial EKG: Attestation: I personally reviewed and interpreted this EKG as follows: Comments: Normal sinus rhythm with a ventricular rate of 97 bpm. No significant features of ACS noted. Prior EKG tracings: available for review Prior: Unchanged Discharge Plan Dx/Rx/DC Orders Clinical Impression: Elevated brain natriuretic peptide (BNP) level, Acute hypoxic respiratory failure, Morbid obesity, Acute dyspnea, Elevated troponin, Bilateral pleural effusion, Chest pain Disposition Disposition: Acute Care Hospital [facility]
[2023-01-05 10:00] LABS: Absolute Lymphocyte Count 0.42 X10^3/uL (0.83-4.51); Absolute Neutrophil Count 13.3 X10^3/uL (2.0-7.7); Basophil# 0.05 X10^3/uL; Basophil% 0.3 % (0-1); Eosinophil# 0.01 X10^3/uL; Eosinophils% 0.1 % (0-5); Hematocrit 33.2 % (37-47); Hemoglobin 10.3 g/dL (12.0-15.0); Lymphocyte # 0.42 X10^3/ul (0.83-4.51); Lymphocyte % 2.8 % (19-41); Mean Corpuscular Hgb 27.8 pg (27.0-32.0); Mean Corpuscular Volume 89.7 fL (81-99); Mean Platelet Vol. 9.7 fl (6.2-12.0); Monocyte# 0.99 X10^3/uL; Monocyte% 6.7 % (0-10); NRBC Flagged by Analyzer 0 % (0-5); Neutrophil # 13.28 X10^3/uL (2.7-7.7); Neutrophil % 89.6 % (47-70); POSITIVE DIFFERENTIAL YES; Platelet Count 272 K/mm3 (150-450); RBC Distribution Width CV 12.6 % (11.6-14.6); RBC Distribution Width SD 41.9 fl (35.1-43.9); White Blood Count 14.8 K/mm3 (4.4-11.0)
--- NOTE | 2023-01-05 10:00 | RAD_ITS ---
INDICATION: dyspnea EXAMINATION/TECHNIQUE: X-RAY - XR Chest 1 View COMPARISON: August 31, 2017 FINDINGS: LINES/DEVICES: None. LUNGS: No consolidation, edema or effusion. No pneumothorax. MEDIASTINUM AND CARDIOVASCULAR STRUCTURES: Cardiac silhouette not enlarged. Central airways and mediastinal contour are unremarkable. BONES AND SOFT TISSUES: Unremarkable. RAD/Chest 1 View (Portable) IMPRESSION: No radiographic evidence of acute cardiopulmonary disease. Electronically Signed: Carley Adam MD at 10:33 EST ,
[2023-01-05 10:02] LABS: Differential Indicated SCAN CRITERIA MET
[2023-01-05 10:20] LABS: ALB/GLOB Ratio 0.6 RATIO (0.9-2.4); AST(SGOT) 31 U/L (15-37); Alanine Aminotransfer ALT/SGPT 41 U/L (13-56); Albumin, Serum 2.7 g/dL (3.2-5.0); Alkaline Phosphatase 187 U/L (45-117); Anion Gap 8 (5-15); BUN 31 mg/dL (7-18); BUN/Creat Ratio 21.5 RATIO (10-20); Chloride 100 mmol/L (98-107); Creatinine, Serum 1.44 mg/dL (0.55-1.02); EST Glomerular Filtration Rate 40 mL/min (>60); Est Glom Filt Rate - Afr Amer 48 mL/min (>60); Estimated Creatinine Clearance 37.85 ml/min; Globulin 4.5 g/dL (2.2-4.2); Glucose 335 mg/dL (74-106); Potassium 4.6 mmol/L (3.5-5.1); Protein, Total 7.2 g/dL (6.4-8.2); Sodium Level 132 mmol/L (136-145); Troponin-I HS (w/2H Reflex) 464 pg/mL (3.0-54.0)
[2023-01-05 10:39] LABS: BNP,B-Type NATRIURETIC PEPTIDE 276.9 pg/mL (0-100)
[2023-01-05 10:43] LABS: Differential Comment SCANNED
--- NOTE | 2023-01-05 11:14 | CT_ITS ---
STUDY: CTA CHEST REASON FOR EXAM: Female, 57 years old. Pulmonary embolism RADIATION DOSAGE (If Supplied By Facility): CTDIvol = ( 19.74 ) mGy, DLP = ( 778.08 ) mGycm TECHNIQUE: The examination was performed with the intravenous administration of IV 100mL Isovue-370. Post-processing of the angiographic images was performed, with multiplanar reformation and 3D reconstruction. Individualized dose optimization techniques were used for this CT. COMPARISON: No relevant prior comparison study available FINDINGS: There are small bilateral pleural effusions associated with minimal dependent consolidation within the lower lobes. There is interlobular septal thickening throughout the left lung associated with scattered ill-defined nodular opacities. Optical Design Engineer nodules include a 4.2 mm right upper lobe nodule (image 161 series 2) and a 3.3 mm right lower lobe nodule (image 103 series 2). Normal enhancement of the main pulmonary artery and right and left pulmonary arteries. There is suboptimal enhancement of the bilateral peripheral pulmonary arteries. There is no demonstrated pulmonary embolism. Normal thoracic aorta and visualized great vessels. There is no demonstrated aortic dissection. There are few coronary artery calcifications. There is a small hiatal hernia. Normal hilar regions. Normal visualized trachea and bronchi. Normal chest wall structures. There are degenerative changes of thoracic spine. Normal visualized upper abdomen. CT/CTA Chest W/WO Contrast IMPRESSION: No demonstrated pulmonary embolism or arterial dissection. Small bilateral pleural effusions associated with minimal dependent lower lobe consolidation. Interlobular septal thickening throughout the right lung associated with scattered ill-defined nodules, a nonspecific finding may be secondary to an infectious process and/or edema, as a precautionary measure recommend follow-up chest CT in 6-8 weeks. Small hiatal hernia. Atherosclerosis. Electronically Signed: Carley Adam MD at 12:20 EST ,
[2023-01-05 11:51] LABS: Reflex Troponin-HS? (from REC) Y
[2023-01-05 12:36] LABS: Troponin-I HS 491 pg/mL (3.0-54.0)
--- NOTE | 2023-01-05 12:53 | EKG12_ITS ---
Test Reason : REPEAT Blood Pressure : / mmHG Vent. Rate : 098 BPM Atrial Rate : 098 BPM P-R Int : 164 ms QRS Dur : 084 ms QT Int : 366 ms P-R-T Axes : 060 028 078 degrees QTc Int : 467 ms Normal sinus rhythm Nonspecific ST abnormality Abnormal ECG Confirmed by TAMRA ORDOÑEZ, LUIS ([id number]), film editor MK SEYMOUR ([id number]) on 01/06/2023 11:04:02 AM Referred By: Confirmed By:LUIS BARBOZA MD
--- NOTE | 2023-01-05 13:03 | PCM.HP.STD ---
HPI - General General Date of Admission: 01/05/23 Date of Service: 01/05/23 Chief Complaint: Worsening shortness of breath HPI Narrative SHADE HUNTER, is a 57 F who presented to [facility] ED on 01/05/2023 from home with worsening shortness of breath. Patient seen at bedside, family member present. Patient laying in bed, conversing normally, no acute distress. Patient reports feeling mildly short of breath at rest currently. This has improved slightly since arriving to the ED after she was placed on supplemental oxygen. Patient states she is largely chair bound/bedbound at home. Lives with her son and daughter, who do most things around the house for her. Patient was diagnosed with COVID about 2 weeks ago. Had mild upper respiratory symptoms but otherwise did not have any significant issues initially. However, she developed worsening shortness of breath at rest over the past 2 days and has generally felt more fatigued than her normal. Patient also reports a mild to moderate left-sided chest pain that has been ongoing for the last few days. Patient has a history of MUNA, has been wearing her CPAP at night as normal and states that her shortness of breath has been improved with CPAP. She denies any recent fevers or chills. Denies any significant cough or sputum production. No other acute concerns at this time. [facility] Medical History (Updated 01/05/23 @ 15:04 by Yara Renae) Abnormal cardiovascular stress test Anxiety Arthritis Asthma Chest pain Chronic neck and back pain CPAP (continuous positive airway pressure) dependence Depression Diabetes Diarrhea Essential (primary) hypertension Former smoker Hemorrhoids Hypertension Incontinence Knee pain Lung disease Morbid obesity Nicotine abuse Obstructive sleep apnea Paroxysmal atrial fibrillation Pericardial effusion with cardiac tamponade (~02/2014) Sleep apnea Type 2 diabetes mellitus without complications Home Medications albuterol sulfate 90 mcg/actuation aerosol inhaler 2 puff inhalation Q6H PRN shortness of breath 08/04/17 [History Last Taken Unknown] insulin glargine 100 unit/mL (3 mL) subcutaneous pen (Lantus Solostar U-100 Insulin) 63 unit subcut DAILY diabetes 08/04/17 [History Last Taken 01/04/23] lorazepam 1 mg tablet 1 mg PO DAILY PRN Anxiety 08/04/17 [History Last Taken Unknown] atorvastatin 40 mg tablet 40 mg PO DAILY cholesterol 01/05/23 [History Last Taken 01/04/23] citalopram 40 mg tablet 40 mg PO DAILY depression 01/05/23 [History Last Taken 01/04/23] glipizide 5 mg tablet, extended release 24 hr 5 mg PO DAILY blood sugar 01/05/23 [History Last Taken 01/04/23] losartan 50 mg tablet 50 mg PO DAILY blood pressure 01/05/23 [History Last Taken 01/04/23] pioglitazone 30 mg tablet 30 mg PO DAILY blood sugar 01/05/23 [History Last Taken 01/04/23] Allergy/AdvReac Type Severity Reaction Status Date / Time Antihistamines - Alkylamine Allergy Shortness Verified 09/27/22 15:35 of breath sulfamethoxazole AdvReac Unknown Verified 09/27/22 15:35 trimethoprim AdvReac Unknown Verified 09/27/22 15:35 Family History Mother Myocardial infarction age 71 CAD (coronary artery disease) stents Surgical History H/O dilation of urethra History of appendectomy History of cataract surgery History of left heart catheterization (09/06/17) Hx of cholecystectomy pericardial window (02/16/14) Status post LASIK surgery of both eyes Social History Smoking Status: Former smoker ROS Constitutional Constitutional: Reports fatigue; Denies change in weight, chills, fever(s) or weakness Eyes Eyes: Denies change in vision Cardiovascular Cardiovascular: Reports chest pain and orthopnea; Denies dyspnea on exertion, edema, lightheadedness, palpitations or rapid heart rate Respiratory/Chest Respiratory/Chest: Reports shortness of breath at rest; Denies cough, excessive phlegm production or wheezing Gastrointestinal Gastrointestinal: Denies abdominal pain, constipation, diarrhea, nausea or vomiting Genitourinary Genitourinary: Denies dysuria Musculoskeletal Musculoskeletal: Denies arthralgias or back pain Neurologic Neurologic: Denies confusion, dizziness, focal weakness, headache(s), numbness or paresthesias Vital Signs Vital Signs Vital Signs: 01/05/23 09:14 01/05/23 09:28 01/05/23 10:40 Temperature 97.6 F L 97.3 F L Temperature Source Temporal Temporal Pulse Rate 108 H 98 Respiratory Rate 24 H 21 H Respiratory Effort Short of Breath Labored Respiratory Pattern Tachypnea Blood Pressure 98/54 L 147/88 H Blood Pressure Mean 68 107 Pulse Ox 86 100 Oxygen Delivery Method Room Air Nasal Cannula Nasal Cannula Oxygen Flow Rate (L/min) 3.5 01/05/23 10:40 Temperature Temperature Source Pulse Rate Respiratory Rate Respiratory Effort Respiratory Pattern Blood Pressure Blood Pressure Mean Pulse Ox Oxygen Delivery Method Nasal Cannula Oxygen Flow Rate (L/min) 3.5 Weight Weight: 173.726 kg Body Mass Index (BMI) 63.7 Physical Exam Const alert, oriented x3 and no apparent distress Constitutional Narrative: Pleasant middle-age female, morbidly obese, mildly anxious appearing, otherwise laying comfortably in bed, conversing normally. General Appearance: cooperative and comfortable HEENT normocephalic, head/scalp atraumatic, hearing grossly normal bilaterally, nasal mucous membranes and turbinates normal and moist oral mucous membranes Eyes PERRL, EOMs intact bilaterally and conjunctivae normal Neck full ROM, no lymphadenopathy and supple Lymph Lymphatic: no lymphadenopathy noted Chest inspection of chest normal Resp Resp Narrative: Mildly decreased breath sounds throughout. No wheezing or crackles noted. Satting in mid 90s on 2 L nasal cannula, no increased work of breathing noted. Cardio regular rate, regular rhythm, no murmurs and peripheral pulses 2+ throughout GI normal to inspection, nondistended, normoactive bowel sounds, soft to palpation, non-tender and non-distended Back/Spine normal ROM Extremity normal to inspection and full ROM Extremity Narrative: Trace lower extremity edema. Skin no rashes or lesions noted Psych mental status grossly normal Results Lab / Micro Data 01/05/23 09:45 01/05/23 09:45 Labs: Laboratory Results - last 24 hr 01/05/23 09:45: WBC 14.8 H, RBC 3.70 L, Hgb 10.3 L, Hct 33.2 L, MCV 89.7, MCH 27.8, MCHC 31.0 L, RDW Std Deviation 41.9, RDW Coeff of Linda 12.6, Plt Count 272, MPV 9.7, Immature Gran % (Auto) 0.500, Neut % (Auto) 89.6 H, Lymph % (Auto) 2.8 L, Laurel % (Auto) 6.7, Eos % (Auto) 0.1, Baso % (Auto) 0.3, Absolute Neuts (auto) 13.3 H, Absolute Lymphs (auto) 0.42 L, Nucleated RBC % 0, Differential Comment SCANNED, Sodium 132 L, Potassium 4.6, Chloride 100, Carbon Dioxide 24.0, Anion Gap 8, BUN 31 H, Creatinine 1.44 H, Estim Creat Clear Calc 37.85, Est GFR (MDRD) Af Amer 48 L, Est GFR (MDRD) Non-Af 40 L, BUN/Creatinine Ratio 21.5 H, Glucose 335 H, Calcium 9.0, Total Bilirubin 1.10 H, AST 31, ALT 41, Alkaline Phosphatase 187 H, Troponin I High Sens 464 H*, B-Natriuretic Peptide 276.9 H, Total Protein 7.2, Albumin 2.7 L, Globulin 4.5 H, Albumin/Globulin Ratio 0.6 L 01/05/23 11:57: Troponin I High Sens 491 H* Imagaing Radiology Impression Chest X-Ray 01/05/23 10:00 IMPRESSION: No radiographic evidence of acute cardiopulmonary disease. Electronically Signed: Carley Adam MD at 10:33 EST , Chest CTA 01/05/23 11:14 IMPRESSION: No demonstrated pulmonary embolism or arterial dissection. Small bilateral pleural effusions associated with minimal dependent lower lobe consolidation. Interlobular septal thickening throughout the right lung associated with scattered ill-defined nodules, a nonspecific finding may be secondary to an infectious process and/or edema, as a precautionary measure recommend follow-up chest CT in 6-8 weeks. Small hiatal hernia. Atherosclerosis. Electronically Signed: Carley Adam MD at 12:20 EST , Assessment & Plan Assessment/Plan (1) NSTEMI, initial episode of care: (2) Acute hypoxic respiratory failure: (3) Community acquired pneumonia: PLAN: Plan Patient is a 57-year-old female who presented to [facility] ED on 12/28/2022 with chest pain and worsening shortness of breath. 1. NSTEMI Moderate to high concern for type I NSTEMI given elevated troponins on admission, known history of poorly controlled type 2 diabetes and morbid obesity, recent COVID infection. Also have concern for new onset heart failure due to recent COVID infection. Troponin trend 464 to 491 in the ED. No EKG changes noted. BNP 276. Given aspirin 325 mg in the ED and initiated on a heparin drip. ? Admit under inpatient status to PCU. Cardiology consulted. Continue heparin drip. Trend troponin. Monitor telemetry. Echo ordered. Continue home statin. 2. Acute hypoxia, improving Does not wear oxygen at baseline. Required up to 4 L nasal cannula in the ED, was weaned to 2 L nasal cannula with oxygen saturations in the low to mid 90s. Suspect secondary to possible pneumonia as noted below plus or minus mild volume overload secondary to concern for cardiac dysfunction. ? Wean supplemental oxygen as able. Treating pneumonia as below and NSTEMI as above. Received 1 dose of IV Lasix in the ED with moderate urine output, can spot dose IV Lasix as needed. 3. Concern for community-acquired pneumonia, unknown organism; recent COVID infection CTA chest on admit showed small bilateral pleural effusions with small lower lobe consolidation, or lobular septal thickening throughout the right lung that may be secondary to an infectious process versus pulmonary edema. WBC count 14. Afebrile, vital signs otherwise stable. Patient reports mild shortness of breath with recent COVID infection that has significantly worsened over the past few days. Denies any significant cough or sputum production. ? Will empirically treat with azithromycin and ceftriaxone for now. Follow-up sputum culture, respiratory PCR panel, urine antigens. Trend CBC. 4. JAYDEN Creatinine 1.44 on admit. Baseline creatinine appears to be around 0.8-0.9. Most likely prerenal etiology in setting of NSTEMI with possible pneumonia as noted above. ? Monitor daily BMP and urine output. Can expand workup if kidney function does not quickly improve. 5. Poorly controlled type 2 diabetes with hyperglycemia Blood glucose 335 on admit. Home regimen appears to be Lantus 63 units daily, glipizide 5 mg daily, pioglitazone 30 mg daily. Previous A1c values range from 10 to 12% over the last year. ? Will start Lantus 50 units in the morning with high-dose sliding scale insulin. Adjust as needed. Repeat A1c ordered. 6. Mild hyponatremia ? Sodium 131 on admit. Suspect primarily pseudohyponatremia in setting of hyperglycemia, corrected sodium of around 134. Treating diabetes as above. Monitor daily BMP. 7. Normocytic anemia Hemoglobin 10.3 on admit, MCV 89. Most recent hemoglobin was 11.4 in 09/2022, previous baseline was around 12-13 back in 2018. Unclear etiology, suspect most likely mild worsening from baseline, no bleeding noted. ? Follow-up a.m. CBC. Iron studies, vitamin B12, folate ordered. Chronic medical conditions: ? Morbid obesity: BMI 56 on admit, lifestyle modifications encouraged. ? Anxiety/depression: Stable. Continued home citalopram, Ativan 1 mg daily as needed. ? MUNA: Reports compliance with home CPAP. CPAP ordered while inpatient. ? Asthma: Continued home albuterol as needed. ? Hypertension: Holding home losartan given JAYDEN as noted above, restart as needed. DVT prophylaxis: Heparin drip CODE STATUS: Full code, verified Expected disposition: TBD. Patient lives at home with her daughter and son, is primarily chair bound/bedbound at home due to her severe obesity, daughter and son help with most everything around the house for her. She would prefer to go home on discharge if able. PT/OT/case management consulted for assistance. Total clinical time spent by myself addressing the patient's medical issues, reviewing all the data, and collaborating with patient's care team: 75 minutes. Charges/Coding Visit Charges Inpatient E&M: 29908 Init Hosp L3
[2023-01-05] MEDS: Ceftriaxone 1 GM/50 ML BAG IV (13:22)
[2023-01-05] MEDS: Furosemide 100 MG/10 ML Vial 60 MG IV (13:22)
[2023-01-05] MEDS: Aspirin 325 MG Tablet PO (13:23)
[2023-01-05] MEDS: Heparin Injection (Vial) 5,000 UNIT/ML VIAL 4000 UNIT IV (14:02)
[2023-01-05] MEDS: HEPARIN/D5w 25,000 UNITS 25,000 UNITS/250 ML IV.SOLN. 10 UNITS CONT INF (14:03)
[2023-01-05 14:06] LABS: International Normalized Ratio 1.1; Prothrombin Time (Protime)PT. 14.3 SECONDS (11.7-14.9)
[2023-01-05 14:07] LABS: Partial Thromboplast Time 31.6 Seconds (24.1-36.2)
[2023-01-05] MEDS: Azithromycin 500 MG in Dextrose 5%-Water (250mL Bag) 250 ML 250 MG IV (14:09)
--- NOTE | 2023-01-05 14:53 | ECHOCS_ITS ---
Reason For Study: Chest Pain Procedure This was a 2D Doppler, Color Flow transthoracic echocardiogram. The study was technically difficult. Contrast injection was performed. Exam performed portable in patient room. Left Ventricle Normal LV size. Left ventricular systolic function is normal. The estimated ejection fraction is 65 %. No regional wall motion abnormalities noted. Right Ventricle Normal RV size. Normal systolic function. Atria Normal left atrium. Mitral Valve Normal mitral valve. Tricuspid Valve The tricuspid valve is not well visualized. Aortic Valve The aortic valve is not well visualized. Mild focal aortic valve calcification. Great Vessels Normal aortic root. Pericardium/Pleural No pericardial effusion. Medication Diluted definity 3ml given slow IV push to enhance endocardial definition. MMode/2D Measurements & Calculations LVIDd: 4.2 cm IVSd: 1.1 cm LVOT diam: 2.0 cm LVIDs: 3.2 cm LVPWd: 1.2 cm LVOT area: 3.1 cm2 FS: 22.3 % LA dimension: 4.6 cm LAV(MOD-bp): 67.5 ml LA A4 area: 23.4 cm2 LAV(MOD-bp) Indexed: 27.3 ml/m2 LAV(MOD-sp2): 59.7 ml LAV(MOD-sp4): 70.0 ml Time Measurements MV dec time: 0.17 sec Doppler Measurements & Calculations MV E max piotr: 118.6 cm/sec Lat Peak E' Piotr: 16.8 cm/sec Med Peak E' Piotr: 9.8 cm/sec MV A max piotr: 107.2 cm/sec E/E' lat: 7.1 E/E' med: 12.0 MV E/A: 1.1 MV V2 max: 162.2 cm/sec MV P1/2t max piotr: 162.7 cm/sec Ao V2 max: 240.5 cm/sec MV max P.6 mmHg MV P1/2t: 66.3 msec Ao max P.2 mmHg MV V2 mean: 93.7 cm/sec MV dec slope: 719.4 cm/sec2 Ao V2 mean: 166.3 cm/sec MV mean P.2 mmHg MVA(P1/2t): 3.3 cm2 Ao mean P.9 mmHg MV V2 VTI: 37.8 cm Ao V2 VTI: 45.6 cm MVA(VTI): 2.2 cm2 AV (velocity ratio): 0.58 JUAN(I,D): 1.8 cm2 JUAN(V,D): 1.7 cm2 LV V1 max: 131.7 cm/sec SV(LVOT): 83.3 ml PA V2 max: 112.2 cm/sec LV V1 max P.9 mmHg LV V1 mean P.2 mmHg LV V1 mean: 95.8 cm/sec LV V1 VTI: 26.6 cm ECHO/Echo Complete W/ Contrast Interpretation Summary Normal LV size. Left ventricular systolic function is normal. The estimated ejection fraction is 65 %. Mild focal aortic valve calcification. Ordering Physician: Atul Cardozo Performed By: Lance Abreu RCS
[2023-01-05] MEDS: Acetaminophen 325 MG Tablet 650 MG PO (15:06)
[2023-01-05] MEDS: CLARIFY ORDER NOTE (15:27)
[2023-01-05 16:39] LABS: Bedside Glucose 348 mg/dL (74-106)
[2023-01-05] MEDS: Insulin Lispro 100 UNIT/ML INSULN.PEN SC ×2 (17:18→20:14)
[2023-01-05 19:09] LABS: Hemoglobin A1c 10.4 % (3.8-5.6)
[2023-01-05 19:12] LABS: Troponin-I HS 443 pg/mL (3.0-54.0)
[2023-01-05 19:13] LABS: Ferritin 285 ng/mL (8-252); Iron 9 ug/dL (50-170); Iron Binding Capacity,Total 256 ug/dL (250-450); PERCENT IRON SATURATION 3.5 % (15.0-55.0)
[2023-01-05 19:31] LABS: Vitamin B12 306 pg/mL (211-911)
[2023-01-05] MEDS: Atorvastatin Calcium 40 MG Tablet PO (20:14)
[2023-01-05 20:40] LABS: Bedside Glucose 371 mg/dL (74-106)
[2023-01-05 20:44] LABS: Partial Thromboplast Time 39.7 Seconds (24.1-36.2)
[2023-01-06] VITALS (31 sets, daily range): BP systolic 127–173; BP diastolic 59–90; PULSE 80–110; RESP 14–36; TEMP 36.6–37.8; O2SAT 90–100
[2023-01-06 05:18] LABS: Bedside Glucose 351 mg/dL (74-106)
--- NOTE | 2023-01-06 05:55 | EKG12_ITS ---
Test Reason : AM EKG Blood Pressure : / mmHG Vent. Rate : 092 BPM Atrial Rate : 092 BPM P-R Int : 162 ms QRS Dur : 082 ms QT Int : 364 ms P-R-T Axes : 062 030 074 degrees QTc Int : 450 ms Normal sinus rhythm Normal ECG Confirmed by TAMRA ORDOÑEZ, LUIS ([id number]), business editor BRANDON RICO ([id number]) on 01/07/2023 9:24:07 AM Referred By: Confirmed By:LUIS BARBOZA MD
[2023-01-06] MEDS: Insulin Lispro 100 UNIT/ML INSULN.PEN SC ×4 (06:13→20:23)
[2023-01-06 06:23] LABS: Bedside Glucose 358 mg/dL (74-106)
[2023-01-06] MEDS: 0.9% Normal Saline (1000mL) 1,000 ML 15 ML IV (06:38)
[2023-01-06 06:44] LABS: Anion Gap 12 (5-15); BUN 31 mg/dL (7-18); BUN/Creat Ratio 21.5 RATIO (10-20); Calcium,Total 7.8 mg/dL (8.5-10.1); Chloride 97 mmol/L (98-107); Creatinine, Serum 1.44 mg/dL (0.55-1.02); EST Glomerular Filtration Rate 40 mL/min (>60); Est Glom Filt Rate - Afr Amer 48 mL/min (>60); Estimated Creatinine Clearance 37.85 ml/min; Glucose 343 mg/dL (74-106); Potassium 4.3 mmol/L (3.5-5.1); Sodium Level 131 mmol/L (136-145)
--- NOTE | 2023-01-06 06:55 | CON.PCM.CA_ITS ---
Assessment & Plan Assessment/Plan (1) NSTEMI, initial episode of care: PLAN: Patient presents with chest discomfort which is somewhat atypical. Cardiac enzymes are however noted to be abnormal. My recommendation will be to proceed with a left heart catheterization. Patient underwent a cardiac catheterization in 2018 which demonstrated normal coronary arteries. Depending on the results further recommendations will be made. Addendum: Cardiac catheterization done today demonstrates the following: Normal left main coronary artery. Left anterior descending artery with minimal disease. First diagonal vessel with ostial 60 to 70% stenosis. Left circumflex artery nondominant with mild disease. Dominant right coronary artery with no significant stenosis. Preserved left ventricular systolic function. Based on the above venographic findings we will continue with aggressive risk factor modification and medical therapy. We will institute Toprol 50 mg a day, losartan 100 mg a day, high intensity statin, and aspirin. Thank you for allowing me to participate in the care of your patient. Please don't hesitate to call if any issues arise. (2) Essential (primary) hypertension: HPI Consult Data Date of Consult: 01/06/23 HPI Narrative HPI Narrative: SHADE HUNTER, is a 57 F who presents to the emergency room with worsening shortness of breath. The patient apparently was diagnosed with COVID 2 weeks ago had mild upper respiratory symptoms. However over the last few days she has noticed that she has had worsening shortness of breath and more fatigue and left-sided chest discomfort which has been ongoing for the last few days. She presented to the emergency room was evaluated cardiac enzymes were obtained and were noted to be abnormal as well as natruretic peptide levels and cardiology was consulted for further evaluation and management. [facility] Medical History (Updated 01/05/23 @ 15:04 by Yara Renae) Abnormal cardiovascular stress test Anxiety Arthritis Asthma Chest pain Chronic neck and back pain CPAP (continuous positive airway pressure) dependence Depression Diabetes Diarrhea Essential (primary) hypertension Former smoker Hemorrhoids Hypertension Incontinence Knee pain Lung disease Morbid obesity Nicotine abuse Obstructive sleep apnea Paroxysmal atrial fibrillation Pericardial effusion with cardiac tamponade (~02/2014) Sleep apnea Type 2 diabetes mellitus without complications Home Medications albuterol sulfate 90 mcg/actuation aerosol inhaler 2 puff inhalation Q6H PRN shortness of breath 08/04/17 [History Last Taken Unknown] insulin glargine 100 unit/mL (3 mL) subcutaneous pen (Lantus Solostar U-100 Insulin) 63 unit subcut DAILY diabetes 08/04/17 [History Last Taken 01/04/23] lorazepam 1 mg tablet 1 mg PO DAILY PRN Anxiety 08/04/17 [History Last Taken Unknown] atorvastatin 40 mg tablet 40 mg PO DAILY cholesterol 01/05/23 [History Last Taken 01/04/23] citalopram 40 mg tablet 40 mg PO DAILY depression 01/05/23 [History Last Taken 01/04/23] glipizide 5 mg tablet, extended release 24 hr 5 mg PO DAILY blood sugar 01/05/23 [History Last Taken 01/04/23] losartan 50 mg tablet 50 mg PO DAILY blood pressure 01/05/23 [History Last Taken 01/04/23] pioglitazone 30 mg tablet 30 mg PO DAILY blood sugar 01/05/23 [History Last Taken 01/04/23] Allergy/AdvReac Type Severity Reaction Status Date / Time Antihistamines - Alkylamine Allergy Shortness Verified 09/27/22 15:35 of breath sulfamethoxazole AdvReac Unknown Verified 09/27/22 15:35 trimethoprim AdvReac Unknown Verified 09/27/22 15:35 Family History Mother Myocardial infarction age 71 CAD (coronary artery disease) stents Surgical History H/O dilation of urethra History of appendectomy History of cataract surgery History of left heart catheterization (09/06/17) Hx of cholecystectomy pericardial window (02/16/14) Status post LASIK surgery of both eyes Social History Smoking Status: Former smoker ROS Constitutional Constitutional: Denies fever(s) or weight loss Eyes Eyes: Reports systems reviewed and no addt'l complaints, except as documented ENT HEENT: Reports systems reviewed and no addt'l complaints, except as documented Cardiovascular Cardiovascular: Denies chest pain at rest, chest pain with activity, dyspnea at rest, dyspnea on exertion, edema, palpitations or paroxysmal nocturnal dyspnea Respiratory/Chest Respiratory/Chest: Reports dyspnea on exertion, productive cough, shortness of breath at rest and shortness of breath with exertion Gastrointestinal Gastrointestinal: Denies change in bowel habits, nausea, vomiting or weight changes Genitourinary Genitourinary: Denies difficulty urinating Musculoskeletal Musculoskeletal: Denies joint stiffness or muscle weakness Integumentary Integumentary: Denies lesions Neurologic Neurologic: Denies dizziness or syncope Psychiatric Psychiatric: Denies anxiety Endocrine Endocrinology: Denies excessive sweating or fatigue Hematologic/Lymphatic Hematologic/Lymphatic: Denies anemia Allergic/Immunologic Allergic/Immunologic: Denies seasonal rhinorrhea Physical Exam Const alert, oriented x3 and no apparent distress General Appearance: cooperative HEENT hearing grossly normal bilaterally Head and Scalp: atraumatic Eyes EOMs intact bilaterally Neck General: normal visual inspection Chest inspection of chest normal and palpation of chest normal Resp normal respiratory effort Auscultation: clear to auscultation bilaterally Cardio regular rate, regular rhythm, S1 normal heart sound and S2 normal heart sound Jugular Venous Distention: JVD GI normal to inspection, nondistended, normoactive bowel sounds Extremity normal capillary refill and no pedal edema Peripheral Pulses: Yes pulses 2+ throughout and femoral pulses present Skin no rashes or lesions noted Neuro oriented x3 and CN's II-XII intact bilaterally Psych Appearance: grossly normal and appropriate Risk Stratification Risk Stratification Applicable: Yes Age >/= 65: No >/= 3 CAD Risk Factors (HTN, HLD, DM, family hx of CAD, or current smoker): Yes Aspirin Use in the Past 7 Days: No Severe Angina (>/= episodes in 24 hours): No EKG ST Changes >/= 0.5mm: No Positive Cardiac Marker: Yes PADMINI Risk Stratification Score: 2 PADMINI % Risk: 8% Risk Objective Data Vital Signs: Vital Signs Temp Pulse Resp BP Pulse Ox O2 Del Method O2 Flow Rate 98.8 F 95 18 148/59 H 95 CPAP 2 01/06/23 04:00 01/06/23 04:00 01/06/23 04:00 01/06/23 04:00 01/06/23 04:00 01/06/23 04:00 01/05/23 22:00 Oxygen Flow Rate (L/min) 2 Oxygen Delivery Method CPAP Weight: 338 lb 6.553 oz Body Mass Index (BMI) 56.2 Intake & Output: Intake and Output for Last 24 Hours 01/04/23 01/05/23 01/06/23 23:59 23:59 23:59 Intake Total 852.33 / 852.33 86.6 / 86.6 Output Total 650 / 650 Balance 852.33 / 852.33 -563.4 / -563.4 Lab / Micro Data 01/05/23 09:45 01/06/23 02:50 Labs: Laboratory Results - last 24 hr 01/05/23 09:45: WBC 14.8 H, RBC 3.70 L, Hgb 10.3 L, Hct 33.2 L, MCV 89.7, MCH 2 7.8, MCHC 31.0 L, RDW Std Deviation 41.9, RDW Coeff of Linda 12.6, Plt Count 272, MPV 9.7, Immature Gran % (Auto) 0.500, Neut % (Auto) 89.6 H, Lymph % (Auto) 2.8 L, [place] % (Auto) 6.7, Eos % (Auto) 0.1, Baso % (Auto) 0.3, Absolute Neuts (auto) 13.3 H, Absolute Lymphs (auto) 0.42 L, Nucleated RBC % 0, Differential Comment SCANNED, PT 14.3, INR 1.1, APTT 31.6, Sodium 132 L, Potassium 4.6, Chloride 100, Carbon Dioxide 24.0, Anion Gap 8, BUN 31 H, Creatinine 1.44 H, Estim Creat Clear Calc 37.85, Est GFR (MDRD) Af Amer 48 L, Est GFR (MDRD) Non-Af 40 L, BUN/Cre atinine Ratio 21.5 H, Glucose 335 H, Calcium 9.0, Total Bilirubin 1.10 H, AST 31, ALT 41, Alkaline Phosphatase 187 H, Troponin I High Sens 464 H*, B- Natriuretic Peptide 276.9 H, Total Protein 7.2, Albumin 2.7 L, Globulin 4.5 H, Albumin/Globulin Ratio 0.6 L 01/05/23 11:57: Troponin I High Sens 491 H* 01/05/23 15:56: POC Glucose 348 H 01/05/23 18:23: Hemoglobin A1c 10.4 H, Iron 9 L, TIBC 256, Iron Saturation 3.5 L , Ferritin 285 H, Troponin I High Sens 443 H*, Vitamin B12 306, Folate 16.60 01/05/23 20:10: APTT 39.7 H 01/05/23 20:12: POC Glucose 371 H 01/06/23 02:50: Sodium 131 L, Potassium 4.3, Chloride 97 L, Carbon Dioxide 22.0, Anion Gap 12, BUN 31 H, Creatinine 1.44 H, Estim Creat Clear Calc 37.85, Est GFR (MDRD) Af Amer 48 L, Est GFR (MDRD) Non-Af 40 L, BUN/Creatinine Ratio 21.5 H, Glucose 343 H, Calcium 7.8 L 01/06/23 02:51: POC Glucose 351 H 01/06/23 06:05: POC Glucose 358 H Micro: Microbiology 01/05/23 15:45 Urine, Random Legionella Antigen - Final 01/05/23 15:45 Urine, Random Streptococcus pneumoniae Antigen (M - Final 01/05/23 13:56 Mucosa - Nasopharyngeal Respiratory Panel (PCR) - Final Cardiology Labs/Tests 01/05/23 09:45: WBC 14.8 H, RBC 3.70 L, Hgb 10.3 L, Hct 33.2 L, MCV 89.7, MCH 27.8, MCHC 31.0 L, Plt Count 272, MPV 9.7, Immature Gran % (Auto) 0.500, Neut % (Auto) 89.6 H, Lymph % (Auto) 2.8 L, [place] % (Auto) 6.7, Eos % (Auto) 0.1, Baso % (Auto) 0.3, Absolute Neuts (auto) 13.3 H, Nucleated RBC % 0, PT 14.3, INR 1.1, APTT 31.6, Sodium 132 L, Potassium 4.6, Chloride 100, Carbon Dioxide 24.0, Anion Gap 8, BUN 31 H, Creatinine 1.44 H, Est GFR (MDRD) Af Amer 48 L, Est GFR (MDRD) Non-Af 40 L, BUN/Creatinine Ratio 21.5 H, Glucose 335 H, Calcium 9.0, Total Bilirubin 1.10 H, B-Natriuretic Peptide 276.9 H 01/05/23 18:23: Hemoglobin A1c 10.4 H, Iron 9 L, TIBC 256, Iron Saturation 3.5 L , Ferritin 285 H 01/05/23 20:10: APTT 39.7 H 01/06/23 02:50: Sodium 131 L, Potassium 4.3, Chloride 97 L, Carbon Dioxide 22.0, Anion Gap 12, BUN 31 H, Creatinine 1.44 H, Est GFR (MDRD) Af Amer 48 L, Est GFR (MDRD) Non-Af 40 L, BUN/Creatinine Ratio 21.5 H, Glucose 343 H, Calcium 7.8 L Rhythm: EKG: ECHO: Stress Test: Cardiac Cath: PCI: CT Surgery: Holter monitor: EPS: PPM: CXR: Chest CT Scan: Radiography Diagnostic Testing: Radiology Impression Chest X-Ray 01/05/23 10:00 IMPRESSION: No radiographic evidence of acute cardiopulmonary disease. Electronically Signed: Carley Adam MD at 10:33 EST , Chest CTA 01/05/23 11:14 IMPRESSION: No demonstrated pulmonary embolism or arterial dissection. Small bilateral pleural effusions associated with minimal dependent lower lobe consolidation. Interlobular septal thickening throughout the right lung associated with scattered ill-defined nodules, a nonspecific finding may be secondary to an infectious process and/or edema, as a precautionary measure recommend follow-up chest CT in 6-8 weeks. Small hiatal hernia. Atherosclerosis. Electronically Signed: Carley Adam MD at 12:20 EST , Echocardiogram 01/05/23 14:53 Interpretation Summary Normal LV size. Left ventricular systolic function is normal. The estimated ejection fraction is 65 %. Mild focal aortic valve calcification. Ordering Physician: Atul Cardozo Performed By: Lance Abreu RCS
[2023-01-06 08:17] LABS: Partial Thromboplast Time 44.5 Seconds (24.1-36.2)
--- NOTE | 2023-01-06 09:15 | PN.HOSP_ITS ---
Reason for Visit Reason for Visit: Diagnoses Non-ST elevation (NSTEMI) myocardial infarction (01/05/23) Pneumonia, unspecified organism (01/05/23) Acute respiratory failure with hypoxia (01/05/23) Subjective Subjective Patient denying any chest pain, not hypoxic so was taken off of O2 but is still having some shortness of breath and cough Objective Data Objective Data Vital Signs: Vital Signs Temp Pulse Resp BP Pulse Ox O2 Del Method O2 Flow Rate 98.8 F 101 H 18 148/59 H 97 CPAP 2 01/06/23 04:00 01/06/23 08:31 01/06/23 08:31 01/06/23 04:00 01/06/23 07:24 01/06/23 08:31 01/06/23 07:24 Oxygen Flow Rate (L/min) 2 Oxygen Delivery Method CPAP Weight: 153.5 kg Body Mass Index (BMI) 56.2 Intake & Output: Intake and Output for Last 24 Hours 01/04/23 01/05/23 01/06/23 23:59 23:59 23:59 Intake Total 852.33 / 852.33 144.02 / 144.02 Output Total 650 / 650 Balance 852.33 / 852.33 -505.98 / -505.98 Lab / Micro Data 01/06/23 02:50 01/06/23 02:50 Labs: Laboratory Results - last 24 hr 01/05/23 09:45: WBC 14.8 H, RBC 3.70 L, Hgb 10.3 L, Hct 33.2 L, MCV 89.7, MCH 27.8, MCHC 31.0 L, RDW Std Deviation 41.9, RDW Coeff of Linda 12.6, Plt Count 272, MPV 9.7, Immature Gran % (Auto) 0.500, Neut % (Auto) 89.6 H, Lymph % (Auto) 2.8 L, [place] % (Auto) 6.7, Eos % (Auto) 0.1, Baso % (Auto) 0.3, Absolute Neuts (auto) 13.3 H, Absolute Lymphs (auto) 0.42 L, Nucleated RBC % 0, Differential Comment SCANNED, PT 14.3, INR 1.1, APTT 31.6, Sodium 132 L, Potassium 4.6, Chloride 100, Carbon Dioxide 24.0, Anion Gap 8, BUN 31 H, Creatinine 1.44 H, Estim Creat Clear Calc 37.85, Est GFR (MDRD) Af Amer 48 L, Est GFR (MDRD) Non-Af 40 L, BUN/Creatinine Ratio 21.5 H, Glucose 335 H, Calcium 9.0, Total Bilirubin 1.10 H, AST 31, ALT 41, Alkaline Phosphatase 187 H, Troponin I High Sens 464 H*, B-Natriuretic Peptide 276.9 H, Total Protein 7.2, Albumin 2.7 L, Globulin 4.5 H, Albumin/Globulin Ratio 0.6 L 01/05/23 11:57: Troponin I High Sens 491 H* 01/05/23 15:56: POC Glucose 348 H 01/05/23 18:23: Hemoglobin A1c 10.4 H, Iron 9 L, TIBC 256, Iron Saturation 3.5 L , Ferritin 285 H, Troponin I High Sens 443 H*, Vitamin B12 306, Folate 16.60 01/05/23 20:10: APTT 39.7 H 01/05/23 20:12: POC Glucose 371 H 01/06/23 02:50: APTT 44.5 H, Sodium 131 L, Potassium 4.3, Chloride 97 L, Carbon Dioxide 22.0, Anion Gap 12, BUN 31 H, Creatinine 1.44 H, Estim Creat Clear Calc 37.85, Est GFR (MDRD) Af Amer 48 L, Est GFR (MDRD) Non-Af 40 L, BUN/Creatinine Ratio 21.5 H, Glucose 343 H, Calcium 7.8 L 01/06/23 02:51: POC Glucose 351 H 01/06/23 06:05: POC Glucose 358 H Micro: Microbiology 01/05/23 15:45 Urine, Random Legionella Antigen - Final 01/05/23 15:45 Urine, Random Streptococcus pneumoniae Antigen (M - Final 01/05/23 13:56 Mucosa - Nasopharyngeal Respiratory Panel (PCR) - Final Radiography Diagnostic Testing: Radiology Impression Chest X-Ray 01/05/23 10:00 IMPRESSION: No radiographic evidence of acute cardiopulmonary disease. Electronically Signed: Carley Adam MD at 10:33 EST , Chest CTA 01/05/23 11:14 IMPRESSION: No demonstrated pulmonary embolism or arterial dissection. Small bilateral pleural effusions associated with minimal dependent lower lobe consolidation. Interlobular septal thickening throughout the right lung associated with scattered ill-defined nodules, a nonspecific finding may be secondary to an infectious process and/or edema, as a precautionary measure recommend follow-up chest CT in 6-8 weeks. Small hiatal hernia. Atherosclerosis. Electronically Signed: Carley Adam MD at 12:20 EST , Echocardiogram 01/05/23 14:53 Interpretation Summary Normal LV size. Left ventricular systolic function is normal. The estimated ejection fraction is 65 %. Mild focal aortic valve calcification. Ordering Physician: Atul Cardozo Performed By: Lance Abreu RCS Physical Exam Narrative General: Alert, oriented, appears to not feel well HEENT: Atraumatic, normocephalic Eyes: Anicteric, normal conjunctiva, extraocular movements grossly intact Neck: Supple Respiratory: Slightly tachypneic, breath sounds diminished secondary to body habitus Cardiovascular: Regular rate GI: Soft, nontender, nondistended Extremities: No edema Musculoskeletal: Moving all extremities Neuro: No overt focal neurological deficits Skin: No rashes appreciated Psych: Cooperative Assessment & Plan Assessment/Plan (1) NSTEMI, initial episode of care: (2) Acute hypoxic respiratory failure: (3) Community acquired pneumonia: PLAN: Plan Patient is a 57-year-old female who presented to [facility] ED on 12/28/2022 with chest pain and worsening shortness of breath. 1. NSTEMI Moderate to high concern for type I NSTEMI given elevated troponins on admission, known history of poorly controlled type 2 diabetes and morbid obesity, recent COVID infection. Also have concern for new onset heart failure due to recent COVID infection. Troponin trend 464 to 491 in the ED. No EKG changes noted. BNP 276. Given aspirin 325 mg in the ED and initiated on a heparin drip. ? Admit under inpatient status to PCU. Cardiology consulted. Continue heparin drip. Trend troponin. Monitor telemetry. Echo ordered. Continue home statin. -01/06: Patient for heart cath and had ostial diagonal disease but med management was recommended as well as managing hypertension, echo with EF 65% and no regional wall motion abnormalities 2. Acute hypoxia, improving Does not wear oxygen at baseline. Required up to 4 L nasal cannula in the ED, was weaned to 2 L nasal cannula with oxygen saturations in the low to mid 90s. Suspect secondary to possible pneumonia as noted below plus or minus mild volume overload secondary to concern for cardiac dysfunction. ? Wean supplemental oxygen as able. Treating pneumonia as below and NSTEMI as above. Received 1 dose of IV Lasix in the ED with moderate urine output, can spot dose IV Lasix as needed. -01/06: O2 sats improving, will continue antibiotics. Had CTA in ED with small bilateral pleural effusions with minimally dependent lower lobe consolidation and some interlobular septal thickening with scattered ill-defined nodules which could be infectious process or edema and is a precautionary measure recommended follow-up CT in 6 to 8 weeks 3. Concern for community-acquired pneumonia, unknown organism; recent COVID infection CTA chest on admit showed small bilateral pleural effusions with small lower lobe consolidation, or lobular septal thickening throughout the right lung that may be secondary to an infectious process versus pulmonary edema. WBC count 14. Afebrile, vital signs otherwise stable. Patient reports mild shortness of breath with recent COVID infection that has significantly worsened over the past few days. Denies any significant cough or sputum production. ? Will empirically treat with azithromycin and ceftriaxone for now. Follow-up sputum culture, respiratory PCR panel, urine antigens. Trend CBC. -01/06: Respiratory panel negative, Legionella and strep pneumo negative. Continue present antibiotics 4. JAYDEN Creatinine 1.44 on admit. Baseline creatinine appears to be around 0.8-0.9. Most likely prerenal etiology in setting of NSTEMI with possible pneumonia as noted above. ? Monitor daily BMP and urine output. Can expand workup if kidney function does not quickly improve. : Unchanged today, continue supportive care, unclear if JAYDEN or CKD as patient did have a creatinine of 1.6 09/2022 but that was newly elevated. Continue to trend 5. Poorly controlled type 2 diabetes with hyperglycemia Blood glucose 335 on admit. Home regimen appears to be Lantus 63 units daily, glipizide 5 mg daily, pioglitazone 30 mg daily. Previous A1c values range from 10 to 12% over the last year. ? Will start Lantus 50 units in the morning with high-dose sliding scale insulin. Adjust as needed. Repeat A1c ordered. -01/06: Continue to adjust insulin 6. Mild hyponatremia ? Sodium 131 on admit. Suspect primarily pseudohyponatremia in setting of hyperglycemia, corrected sodium of around 134. Treating diabetes as above. Monitor daily BMP. -01/06: Roughly unchanged today 7. Normocytic anemia Hemoglobin 10.3 on admit, MCV 89. Most recent hemoglobin was 11.4 in 09/2022, previous baseline was around 12-13 back in 2018. Unclear etiology, suspect most likely mild worsening from baseline, no bleeding noted. ? Follow-up a.m. CBC. Iron studies, vitamin B12, folate ordered. -01/06: Continue to monitor Chronic medical conditions: ? Morbid obesity: BMI 56 on admit, lifestyle modifications encouraged. ? Anxiety/depression: Stable. Continued home citalopram, Ativan 1 mg daily as needed. ? MUNA: Reports compliance with home CPAP. CPAP ordered while inpatient. ? Asthma: Continued home albuterol as needed. ? Hypertension: Continuing medications at present DVT prophylaxis: Heparin drip CODE STATUS: Full code, verified Expected disposition: TBD. Patient lives at home with her daughter and son, is primarily chair bound/bedbound at home due to her severe obesity, daughter and son help with most everything around the house for her. She would prefer to go home on discharge if able. PT/OT/case management consulted for assistance. Total clinical time spent by myself addressing the patient's medical issues, reviewing all the data, and collaborating with patient's care team: 35 minutes. Charges/Coding Visit Charges Inpatient E&M: 69878 Subs Hosp L2
[2023-01-06 09:19] LABS: Hematocrit 29.7 % (37-47); Hemoglobin 9.3 g/dL (12.0-15.0); Mean Corp Hgb Conc 31.3 g/dL (32-36); Mean Corpuscular Hgb 27.9 pg (27.0-32.0); Mean Corpuscular Volume 89.2 fL (81-99); Mean Platelet Vol. 9.8 fl (6.2-12.0); Platelet Count 240 K/mm3 (150-450); RBC Distribution Width CV 12.9 % (11.6-14.6); Red Blood Count 3.33 M/mm3 (4.2-5.4); White Blood Count 13.6 K/mm3 (4.4-11.0)
--- NOTE | 2023-01-06 09:30 | CL.D_ITS ---
Patient Name: SHADE HUNTER Study Date: 01/06/2023 Performing: Kirk Ford MD Ht: 65 inches 165.1 cm : 1965 Wt: 338.9 lbs 153.5 kg Age: 57 Gender: female BSA: 2.47 PROCEDURE(S) PERFORMED DC01-(95348)LHC/COR/LV CLINICAL PROFILE AND INDICATIONS Indications: Suspected CAD Heart Failure: None Stress/Imaging Stress/Image Study Performed: No CAD Presentations: Unstable angina. CONCLUSIONS Single-vessel disease involving ostial diagonal vessel. Preserved ejection fraction. RECOMMENDATIONS We will recommend aggressive risk factor modification blood pressure control and medical therapy. DESCRIPTION OF PROCEDURE The patient arrived to the procedure lab. The risks and benefits of the procedure as well as a full description of our services here and current unavailability of surgical backup were fully explained to the patient and/or their significant other prior to the catheterization. The Timeout was completed, verifying the correct patient and procedure. The patient's procedural site was prepped and draped in the usual fashion. Local anesthetic was given subcutaneously to right radial region with Lidocaine 2%. Using a modified Seldinger technique, arterial access was obtained via the right radial artery, a 6Fr sheath was inserted. Left Coronary Artery selective angiography was performed in multiple views using a 5 Fr. 4.0 Shandon catheter. Right Coronary Artery selective angiography was then performed in multiple views using a 5 Fr. 4.0 [place]andon catheter. Left Ventriculography was performed in [place]OU[place] projection using a 5 Fr. Pigtail catheter. LV to AO pullback pressures were then recorded.The arterial sheath was pulled and a TR Band was applied for hemostasis CORONARY ANGIOGRAPHY DOMINANCE: Right Dominant LEFT HEART ASSESSMENT Left Ventricular Ejection Fraction: by LV Gram 60 % Normal LV wall motion Normal Left Ventricular systolic function LEFT MAIN: Angiographically normal LEFT ANTERIOR DESCENDING ARTERY: No significant disease noted DIAGONAL 1: Ostial - 70 % Stenosis CIRCUMFLEX ARTERY: Mild luminal irregularities RIGHT CORONARY ARTERY: Angiographically normal COMPLICATIONS No Complications PROCEDURE MEDICATIONS Versed 1 mg IV Fentanyl 50 mcg IV Oxygen: 4 L/min via nasal cannula SUMMARY OF HEMODYNAMIC DATA Time AIR REST ECG 08:41:32 AO 152/87 (110) SA 08:58:15 LV 172/15, 38 09:11:05 LV 168/17, 31 09:11:12 LV 0/0, 20 09:11:51 LV 175/18, 41 09:11:58 LVp 176/17, 40 09:12:13 AOp 180/88 (121) 09:12:18 Signed By Kirk Ford MD On 01/06/2023 09:29:09 Krik Ford MD
[2023-01-06] MEDS: Metoprolol(XL)Succ 50 MG Tablet PO (10:11)
[2023-01-06] MEDS: Losartan Potassium 100 MG Tablet PO (10:11)
[2023-01-06] MEDS: Citalopram 40 MG TABLET PO (10:11)
--- NOTE | 2023-01-06 10:15 | CASEMGMT ---
RN LENA Face to Face with patient for initial transition planning/care coordination assessment. RN CM introduced self and role at [facility]. Patient lying in bed, alert and oriented, children at bedside. Patient willing to participate in assessment and is able to answer all questions appropriately. Care providers, pharmacy, and demographics verified. Patient wishes to discharge home, will monitor for HHC pending course of treatment and progress with therapy. Patient states she has no further needs or concerns at this time. CM to follow for discharge planning needs that may arise. PCP: Stefany Specialists: none Preferred Pharmacy: [facility] Insurance: [facility] Prescription Benefit: yes Living Will/HPOA: yes daughter Nichol Ibarra LNOK: son, daughter Living Arrangements: Patient lives with daughter in a 2 story home. Patient is normally able to ambulate stairs at home. Transportation: self, daughter, son DME/HHC: Patient has cpap at home. No previous HHC or SNF . Will monitor for HHC and home oxygen Disposition Plan: Patient to discharge home with family support and follow-up plans in place. Leticia PUGH, RN, CM
[2023-01-06] MEDS: Insulin Glargine-YFGN 100 UNIT/ML Pen 50 UNIT SC (10:16)
[2023-01-06] MEDS: Ceftriaxone 1 GM/50 ML BAG IV (10:22)
[2023-01-06 10:34] LABS: Partial Thromboplast Time 39.4 Seconds (24.1-36.2)
[2023-01-06] MEDS: Azithromycin 500 MG in Dextrose 5%-Water (250mL Bag) 250 ML 250 MG IV (11:12)
[2023-01-06] MEDS: Albuterol 2.5 MG/3 ML VIAL.NEB. INHALATION ×2 (11:28→19:20)
[2023-01-06] MEDS: Acetaminophen 325 MG Tablet 650 MG PO (11:34)
[2023-01-06 11:49] LABS: Bedside Glucose 281 mg/dL (74-106)
--- NOTE | 2023-01-06 11:59 | CHAPLAIN ---
Type of Pastoral Visit _x__ Initial Visit ___ Follow-up Visit ___ On-call Visit ___ General Patient Visit ___ Spiritual Assessment ___ Family Conference ___ Bereavement ___ Rapid Response ___ Code Blue ___ Other (describe below) Pastoral Care Referral From _x__ Patient ___ Family ___ Nurse ___ Physician ___ Commercial Leasing Agent ___ Client Director ___ Other (describe below) Sacrament/Intervention ___ Active listening ___ Anointing ___ Evangelical ___ Bereavement ___ Communion ___ Barbara exploration ___ ___ Life review _x__ Prayer ___ Reconciliation ___ Sacrament of Sick _x__ Supportive presence ___ Wedding ___ Other (describe below) Pastoral Comments entered room and RN and two adult children are in the room with patient; RN excuses herself so pt can talk with this dispensary technician; pt has labored breathing and so this was a brief encounter; children were asked how they were and what they might need; children did not indicate any needs and remained quiet during this visit; pt asks for prayer; pt denies needs at this time but continues with labored breathing; pt is being monitored; offer of future support is given
[2023-01-06] MEDS: Sodium Chloride 0.65% 1 SPRAY SPRAY.BTL 2 SPRAY NASAL (12:08)
[2023-01-06 12:38] LABS: Bedside Glucose 358 mg/dL (74-106)
[2023-01-06 18:02] LABS: Bedside Glucose 273 mg/dL (74-106)
[2023-01-06] MEDS: LORazepam 1 MG Tablet PO (18:52)
--- NOTE | 2023-01-06 20:08 | CPS ---
Pt was switched to bipap bc pt was tachypneic and SOB albuterol aerosol given with not much relief. RN notified.
[2023-01-06] MEDS: Atorvastatin Calcium 40 MG Tablet PO (20:22)
[2023-01-06] MEDS: Heparin Injection (Vial) 5,000 UNIT/ML VIAL 5000 UNIT SC (20:27)
[2023-01-06 20:48] LABS: Bedside Glucose 327 mg/dL (74-106)
[2023-01-07] VITALS (17 sets, daily range): BP systolic 122–172; BP diastolic 52–75; PULSE 65–92; RESP 14–32; TEMP 36.3–38.8; O2SAT 92–100
[2023-01-07] MEDS: Acetaminophen 325 MG Tablet 650 MG PO ×2 (00:13→15:05)
[2023-01-07 01:18] LABS: Allen Test Positive; Base Excess -1 mmol/L (-2 to +2); Bicarbonate 21.4 mmol/L (22-26); Blood Gas Specimen Type ART; Mode Not entered; O2 Delivery Device Cannula; PO2 127 mmHG (75-100); SITE L Radial; SO2 99 % (95-99); Total Carbon Dioxide 22 mmol/L; pCO2 25.2 mmHg (35-45); pH 7.54 (7.35-7.45)
--- NOTE | 2023-01-07 01:23 | PCM.HOSP.N ---
Hospitalist Note Notified by nursing that patient was having fast respiratory rates. This was ongoing despite and level of oxygen, including AVAPS, nasal cannula, etc. I performed an ABG that shows a respiratory alkalosis. Appears the patient is just very anxious we will give the patient as needed lorazepam.
[2023-01-07] MEDS: Insulin Lispro 100 UNIT/ML INSULN.PEN SC ×5 (02:47→21:20)
[2023-01-07] MEDS: Heparin Injection (Vial) 5,000 UNIT/ML VIAL 5000 UNIT SC ×3 (05:13→21:53)
[2023-01-07 06:15] LABS: Bedside Glucose 219 mg/dL (74-106)
[2023-01-07 06:15] LABS: Bedside Glucose 243 mg/dL (74-106)
[2023-01-07 07:37] LABS: Absolute Lymphocyte Count 1.08 X10^3/uL (0.83-4.51); Absolute Neutrophil Count 6.4 X10^3/uL (2.0-7.7); Basophil# 0.03 X10^3/uL; Basophil% 0.3 % (0-1); Eosinophil# 0.03 X10^3/uL; Eosinophils% 0.3 % (0-5); Hematocrit 29.1 % (37-47); Lymphocyte # 1.08 X10^3/ul (0.83-4.51); Lymphocyte % 12.3 % (19-41); Mean Corp Hgb Conc 30.9 g/dL (32-36); Mean Corpuscular Hgb 27.2 pg (27.0-32.0); Mean Corpuscular Volume 87.9 fL (81-99); Monocyte# 1.16 X10^3/uL; Monocyte% 13.2 % (0-10); NRBC Flagged by Analyzer 0 % (0-5); Neutrophil # 6.41 X10^3/uL (2.7-7.7); Neutrophil % 72.9 % (47-70); POSITIVE COUNT YES; RBC Distribution Width CV 12.8 % (11.6-14.6); RBC Distribution Width SD 41.7 fl (35.1-43.9); Red Blood Count 3.31 M/mm3 (4.2-5.4); White Blood Count 8.8 K/mm3 (4.4-11.0)
[2023-01-07 08:01] LABS: Anion Gap 5 (5-15); BUN 38 mg/dL (7-18); BUN/Creat Ratio 21.8 RATIO (10-20); Calcium,Total 7.8 mg/dL (8.5-10.1); Chloride 99 mmol/L (98-107); Creatinine, Serum 1.74 mg/dL (0.55-1.02); EST Glomerular Filtration Rate 32 mL/min (>60); Est Glom Filt Rate - Afr Amer 38 mL/min (>60); Estimated Creatinine Clearance 31.33 ml/min; Glucose 210 mg/dL (74-106); Potassium 3.7 mmol/L (3.5-5.1); Sodium Level 129 mmol/L (136-145)
[2023-01-07 08:13] LABS: Differential Indicated SCAN CRITERIA MET; Platelet Estimate ADEQUATE (ADEQ)
[2023-01-07] MEDS: Citalopram 40 MG TABLET PO (09:28)
[2023-01-07] MEDS: Metoprolol(XL)Succ 50 MG Tablet PO (09:29)
[2023-01-07] MEDS: Aspirin E.C. 81 MG Tablet PO (09:29)
[2023-01-07] MEDS: Losartan Potassium 100 MG Tablet PO (09:29)
[2023-01-07] MEDS: Ceftriaxone 1 GM/50 ML BAG IV (09:29)
[2023-01-07] MEDS: Insulin Glargine-YFGN 100 UNIT/ML Pen 50 UNIT SC (09:39)
[2023-01-07] MEDS: Azithromycin 500 MG in Dextrose 5%-Water (250mL Bag) 250 ML 250 MG IV (11:02)
[2023-01-07] MEDS: 0.9% Normal Saline (250mL Bag) 250 ML 999 ML IV (11:03)
[2023-01-07] MEDS: LORazepam 1 MG Tablet PO (12:44)
[2023-01-07 13:23] LABS: Anion Gap 9 (5-15); Calcium,Total 8.1 mg/dL (8.5-10.1); Chloride 96 mmol/L (98-107); Creatinine, Serum 1.76 mg/dL (0.55-1.02); EST Glomerular Filtration Rate 31 mL/min (>60); Est Glom Filt Rate - Afr Amer 38 mL/min (>60); Estimated Creatinine Clearance 30.97 ml/min; Glucose 286 mg/dL (74-106); Potassium 3.7 mmol/L (3.5-5.1); Sodium Level 128 mmol/L (136-145)
[2023-01-07 13:30] LABS: BUN 39 mg/dL (7-18); BUN/Creat Ratio 22.2 RATIO (10-20)
[2023-01-07] MEDS: Polyethylene Glycol 3350 17 GM PACKET PO (15:04)
--- NOTE | 2023-01-07 15:23 | PCM.PN.HOSP ---
Reason for Visit Reason for Visit: Diagnoses Essential (primary) hypertension (01/05/23) Non-ST elevation (NSTEMI) myocardial infarction (01/05/23) Pneumonia, unspecified organism (01/05/23) Acute respiratory failure with hypoxia (01/05/23) Subjective Subjective Patient very anxious and low motivation, did not endorse to me initially but later endorsed that she was concerned she had a UTI and also had urinated in her depends and was sitting in it Objective Data Objective Data Vital Signs: Vital Signs Temp Pulse Resp BP Pulse Ox O2 Del Method O2 Flow Rate 101.8 F H 92 20 H 172/75 H 97 Room Air 2 01/07/23 15:13 01/07/23 15:13 01/07/23 15:13 01/07/23 15:13 01/07/23 15:13 01/07/23 15:13 01/07/23 09:00 FiO2 21 01/06/23 23:15 Oxygen Flow Rate (L/min) 2 Oxygen Delivery Method Room Air Weight: 153.5 kg Body Mass Index (BMI) 56.2 Intake & Output: Intake and Output for Last 24 Hours 01/05/23 01/06/23 01/07/23 23:59 23:59 23:59 Intake Total 852.33 / 852.33 1851.77 / 2091.77 1835 / 1835 Output Total 1850 / 2300 1050 / 1050 Balance 852.33 / 852.33 1.77 / -208.23 785 / 785 Lab / Micro Data 01/07/23 06:30 01/07/23 12:10 Labs: Laboratory Results - last 24 hr 01/06/23 16:53: POC Glucose 273 H 01/06/23 20:21: POC Glucose 327 H 01/07/23 02:43: POC Glucose 243 H 01/07/23 05:55: POC Glucose 219 H 01/07/23 06:30: WBC 8.8, RBC 3.31 L, Hgb 9.0 L, Hct 29.1 L, MCV 87.9, MCH 27.2, MCHC 30.9 L, RDW Std Deviation 41.7, RDW Coeff of Linda 12.8, Plt Count , MPV 10.0, Immature Gran % (Auto) 1.000 H, Neut % (Auto) 72.9 H, Lymph % (Auto) 12.3 L, Evangeline % (Auto) 13.2 H, Eos % (Auto) 0.3, Baso % (Auto) 0.3, Absolute Neuts (auto) 6.4, Absolute Lymphs (auto) 1.08, Nucleated RBC % 0, Platelet Estimate ADEQUATE, Sodium 129 L, Potassium 3.7, Chloride 99, Carbon Dioxide 25.0, Anion Gap 5, BUN 38 H, Creatinine 1.74 H, Estim Creat Clear Calc 31.33, Est GFR (MDRD) Af Amer 38 L, Est GFR (MDRD) Non-Af 32 L, BUN/Creatinine Ratio 21.8 H, Glucose 210 H, Calcium 7.8 L 01/07/23 12:10: Sodium 128 L, Potassium 3.7, Chloride 96 L, Carbon Dioxide 23.0, Anion Gap 9, BUN 39 H, Creatinine 1.76 H, Estim Creat Clear Calc 30.97, Est GFR (MDRD) Af Amer 38 L, Est GFR (MDRD) Non-Af 31 L, BUN/Creatinine Ratio 22.2 H, Glucose 286 H, Calcium 8.1 L Micro: Microbiology 01/05/23 15:45 Urine, Random Legionella Antigen - Final 01/05/23 15:45 Urine, Random Streptococcus pneumoniae Antigen (M - Final 01/05/23 13:56 Mucosa - Nasopharyngeal Respiratory Panel (PCR) - Final ABG Data ABG results: ABG 01/07/23 01:14 Specimen Type ART Sample Site L Radial pH 7.54 H Bicarbonate Actual 21.4 L Total CO2 22 Base Excess -1 O2 Saturation 99 O2 % 3.0 ABG pCO2 25.2 L ABG pO2 127 H Vidal Test Positive O2 Delivery Device Cannula Vent Mode Not entered Physical Exam Narrative General: Alert, anxious HEENT: Atraumatic, normocephalic Eyes: Anicteric, normal conjunctiva, extraocular movements grossly intact Neck: Supple Respiratory: Diminished bilaterally, intermittently will be somewhat tachypneic Cardiovascular: Regular rate and rhythm GI: Soft, nontender, nondistended Extremities: No significant pitting edema Musculoskeletal: Moving all extremities Neuro: No overt focal neurological deficits Skin: No rashes appreciated Psych: Cooperative Assessment & Plan Assessment/Plan (1) NSTEMI, initial episode of care: (2) Acute hypoxic respiratory failure: (3) Community acquired pneumonia: PLAN: Plan Patient is a 57-year-old female who presented to ED on 12/28/2022 with chest pain and worsening shortness of breath. #Febrile -Patient with temperature of 101.8 ?F, unclear etiology she is presently being treated for CAP with Rocephin and azithromycin -We will get blood cultures, Pro-Karthik, ESR, CRP -Endorse later in the afternoon that she thought maybe she had a UTI so UA and urine culture ordered -Respiratory panel and urine antigens negative on admission, had recent COVID good checked may be false positive and unclear if this would be clinically significant -We will continue present antibiotics pending culture data and clinical progress #NSTEMI Moderate to high concern for type I NSTEMI given elevated troponins on admission, known history of poorly controlled type 2 diabetes and morbid obesity, recent COVID infection. Also have concern for new onset heart failure due to recent COVID infection. Troponin trend 464 to 491 in the ED. No EKG changes noted. BNP 276. Given aspirin 325 mg in the ED and initiated on a heparin drip. ? Admit under inpatient status to PCU. Cardiology consulted. Continue heparin drip. Trend troponin. Monitor telemetry. Echo ordered. Continue home statin. -01/06: Patient for heart cath and had ostial diagonal disease but med management was recommended as well as managing hypertension, echo with EF 65% and no regional wall motion abnormalities -01/07: Continue losartan, aspirin, statin, metoprolol #Acute hypoxia, improving Does not wear oxygen at baseline. Required up to 4 L nasal cannula in the ED, was weaned to 2 L nasal cannula with oxygen saturations in the low to mid 90s. Suspect secondary to possible pneumonia as noted below plus or minus mild volume overload secondary to concern for cardiac dysfunction. ? Wean supplemental oxygen as able. Treating pneumonia as below and NSTEMI as above. Received 1 dose of IV Lasix in the ED with moderate urine output, can spot dose IV Lasix as needed. -01/06: O2 sats improving, will continue antibiotics. Had CTA in ED with small bilateral pleural effusions with minimally dependent lower lobe consolidation and some interlobular septal thickening with scattered ill-defined nodules which could be infectious process or edema and is a precautionary measure recommended follow-up CT in 6 to 8 weeks -01/07: Was tachypneic overnight but ABG demonstrated respiratory alkalosis and patient seemed to improve with improvement of anxiety, patient was ambulated and did not require home O2 #Concern for community-acquired pneumonia, unknown organism; recent COVID infection CTA chest on admit showed small bilateral pleural effusions with small lower lobe consolidation, or lobular septal thickening throughout the right lung that may be secondary to an infectious process versus pulmonary edema. WBC count 14. Afebrile, vital signs otherwise stable. Patient reports mild shortness of breath with recent COVID infection that has significantly worsened over the past few days. Denies any significant cough or sputum production. ? Will empirically treat with azithromycin and ceftriaxone for now. Follow-up sputum culture, respiratory PCR panel, urine antigens. Trend CBC. -01/06: Respiratory panel negative, Legionella and strep pneumo negative. Continue present antibiotics -01/07: See above #JAYDEN vs ckd Creatinine 1.44 on admit. Baseline creatinine appears to be around 0.8-0.9. Most likely prerenal etiology in setting of NSTEMI with possible pneumonia as noted above. ? Monitor daily BMP and urine output. Can expand workup if kidney function does not quickly improve. -01/06: Unchanged today, continue supportive care, unclear if JAYDEN or CKD as patient did have a creatinine of 1.6 09/2022 but that was newly elevated. Continue to trend -01/07: Had creatinine of 1.6 09/27/2022 and was subsequently 1.44 here, increased to 1.74 possibly secondary to heart cath, give gentle hydration and will recheck. We will also check BNP to help assess fluid level, check UA and urine culture, will also get urine lites/urine studies, can consider kidney ultrasound pending results and progress #Poorly controlled type 2 diabetes with hyperglycemia Blood glucose 335 on admit. Home regimen appears to be Lantus 63 units daily, glipizide 5 mg daily, pioglitazone 30 mg daily. Previous A1c values range from 10 to 12% over the last year. ? Will start Lantus 50 units in the morning with high-dose sliding scale insulin. Adjust as needed. Repeat A1c ordered. -01/06: Continue to adjust insulin -01/07: A1c 10.4, continue to adjust insulin #Mild hyponatremia ? Sodium 131 on admit. Suspect primarily pseudohyponatremia in setting of hyperglycemia, corrected sodium of around 134. Treating diabetes as above. Monitor daily BMP. -01/06: Roughly unchanged today -01/07: Did decrease some, checking serum and urine osmolality and urine studies, patient given gentle hydration as kidney function bumped up after heart cath, check TSH and BNP #Normocytic anemia Hemoglobin 10.3 on admit, MCV 89. Most recent hemoglobin was 11.4 in 09/2022, previous baseline was around 12-13 back in 2018. Unclear etiology, suspect most likely mild worsening from baseline, no bleeding noted. ? Follow-up a.m. CBC. Iron studies, vitamin B12, folate ordered. -01/06: Continue to monitor -01/07: Downtrended slightly but no evidence of blood loss, continue to trend Chronic medical conditions: ? Morbid obesity: BMI 56 on admit, lifestyle modifications encouraged. ? Anxiety/depression: Stable. Continued home citalopram, Ativan 1 mg daily as needed. ? MUNA: Reports compliance with home CPAP. CPAP ordered while inpatient. ? Asthma: Continued home albuterol as needed. ? Hypertension: Continuing medications at present DVT prophylaxis: Heparin subq CODE STATUS: Full code, verified Total clinical time spent by myself addressing the patient's medical issues, reviewing all the data, and collaborating with patient's care team: 55 minutes. Charges/Coding Visit Charges Inpatient E&M: 39491 Subs Hosp L3
[2023-01-07 16:03] LABS: Procalcitonin 12.11 ng/mL (0.00-0.09); Vitamin B12 240 pg/mL (211-911); Vitamin D,25 Hydroxy 8.1 ng/mL
[2023-01-07 16:08] LABS: Erythrocyte Sedimentation Rate 70 mm/hr (0-30)
[2023-01-07 16:12] LABS: T4 Free Direct 1.23 ng/dL (0.76-1.46); Thyroid Stim Hormone (TSH) 0.75 uIU/mL (0.358-3.74)
[2023-01-07 16:16] LABS: Mucous, Urine 0 SEEN /hpf (<or=2+)
[2023-01-07 16:26] LABS: Color, Urine Yellow (Yellow); Glucose, Dipstick 100 mg/dl (Normal); Ketone-Dipstick Negative (Negative); Leukocyte Esterase-Dipstick 100 /ul (Negative); Nitrite-Dipstick Negative (Negative); Occult Blood-Urine 150 /ul (Negative); Protein-Dipstick 30 mg/dl (Negative); Specific Gravity, Urine 1.015 (1.002-1.030); Urine Bilirubin Dipstick Negative (Negative); Urine Clarity Sl. Cloudy (Clear); Urine Urobilinogen Normal (Normal)
[2023-01-07 16:26] LABS: BNP,B-Type NATRIURETIC PEPTIDE 133.3 pg/mL (0-100)
[2023-01-07 16:40] LABS: Urea Nitrogen, Urine 691 mg/dL (NO RANGE EST.); Urine Chloride 14 mmol/L (Not Establ.); Urine Sodium 26 mmol/L (Not Establ.)
[2023-01-07] MEDS: 0.9% Normal Saline (1000mL) 1,000 ML 50 ML IV (16:44)
[2023-01-07 16:56] LABS: Anion Gap 17 (5-15); BUN 31 mg/dL (7-18); BUN/Creat Ratio 17.4 RATIO (10-20); Calcium,Total 7.9 mg/dL (8.5-10.1); Chloride 97 mmol/L (98-107); Creatinine, Serum 1.78 mg/dL (0.55-1.02); EST Glomerular Filtration Rate 31 mL/min (>60); Est Glom Filt Rate - Afr Amer 37 mL/min (>60); Estimated Creatinine Clearance 30.62 ml/min; Glucose 259 mg/dL (74-106); Sodium Level 128 mmol/L (136-145)
[2023-01-07] MEDS: Piperacil/Tazobactam 4.5 GM in 0.9% Normal Saline (100mL MB+) 100 ML IV (17:03)
[2023-01-07 17:05] LABS: Osmolality, Urine 401 mOsm/KG
[2023-01-07 17:05] LABS: Osmolality, Serum 284 mOsm/KG (275-295)
--- NOTE | 2023-01-07 17:08 | PCM.HOSP.N ---
Hospitalist Note Patient had been doing well earlier today but had seemed to decline somewhat throughout the day and then spiked a temperature of 101.8. Immediately ordered more labs and cultures, Pro-Karthik, CRP, ESR elevated and kidney function had worsened during the day and patient did develop metabolic acidosis between morning and evening so fluids were started and her antibiotics were changed to vancomycin and Zosyn, lactic acid checked due to bicarb being down and anion gap being up and suspect this will be elevated, also suspect this is all due to an underlying infection. Respiratory status had been improving however patient later in the day had commented to physical therapy that she thought she might be getting a urinary tract infection which may be the source as she had not reported any other focal complaints aside from the improving shortness of breath. Continue fluids and broad-spectrum antibiotics and we will cycle lactic acid, again do expect this to be elevated but given patient is just now being started on fluids and antibiotics changed that should trend down with treatment
[2023-01-07 17:16] LABS: Bacteria RARE /hpf (None Seen); Red Blood Cells-Urine 0-5 SEEN /hpf (0-5); Squamous Epithelial Cells - UA 0-5 SEEN /hpf (5-10); White Blood Cells 0-5 SEEN /hpf (0-5)
--- NOTE | 2023-01-07 17:30 | CASEMGMT ---
Social Work - Support for Mental Health Reason for Intervention: Verbal consult received due to daughter expressing thought patient in need of psych services; Patient also reportedly willing to speak with social work for resources. Met with patient in room, introducing to self and social work role. Brief Social History:? Patient has a son and a daughter, both of whom are involved in patient's life.? Patient lives in own home, with daughter and grandson living in the home.? 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 ?Drives self, and takes care of own personal care.? ? Stressors: Patient reports tension between patient and patient's daughter due to patient's hoarding tendencies. Patient reports the daughter, Aurora, has lived with patient for almost 5 years and is planning to move out, along with patient's almost 5 year old grandson in February. Patient reports this is a stressor for the patient, and patient is uncertain how to take steps to purge items in the home, as well as is upset about the level of tension between patient and patient's daughter. Recent COVID illness and off work for 5 days. Mental Health History: Patient reports long history of depression, anxiety, and describes self as a hoarder. Patient reports history of suicide attempt about 40 years ago by attempting to hang self while hospitalized, and about 30 years ago by driving at high speeds in hopes of dying. Denies any crash or injury to self/others resulted from this suicide attempt. Patient also denies injury from the attempt to hang self. Patient reports thoughts of dying intermittently over the years, but no attempts in 30 years. Patient reports was psychiatrically hospitalized 30-40 years ago, but none reported since. Reports history of counseling, but nothing current. Reports treatment with an antidepressant and then a PRN anti-anxiety medication, prescribed by a PCP; no psychiatry. Current symptoms: Patient reports to feel depressed, but more so increasing anxiety. Reports concentration issues, worry, and feeling unsure how to start to make steps to change. Reports 3 panic attacks since being hospitalized. Patient reports has had recent thoughts of dying over the last couple of weeks. Reports has thought that would not care of my heart blew up,' and it would be easier. Patient shares though, these thoughts do not last long, and has no desire or intent to make a plan for suicide. Patient states I'm not going to off myself. Patient reports would not want to cause trauma to her children. Denies access to lethal means; no guns; no stockpiles of medications at home. Patient verbally contracts for safety, and verbally agrees to let staff know of emotional distress occurs while in the hospital; for access to increased staff support to patient. No thoughts of harm to others. Coping: Patient reports to enjoy listening to audible books, but this has been hard recently due to poor concentration. Summary: Discussed with patient likely benefit to start engaging in counseling, for increased support and coping. Patient reports [facility] offers free services and has been thinking of looking into this for teletherapy with someone on the [facility], as this will be after the patient is home and has time to participate in therapy. Patient reports between working fulltime and rushing home to care for patient's grandson (as Nichol works nightshift) this does not leave a lot of time for patient to care for self. Discussed with patient importance of self care, and looking at ways to make time for self care. Broached referral to psychiatry for management of psychiatric medications. Educated to IOP level of care as well. Patient asked this real estate underwriter if this real estate underwriter needed to speak with daughter Nichol. This real estate underwriter explored with patient as to whether patient felt this to be helpful. Patient did agree for this real estate underwriter to touch base with Aurora. Let patient know social work would be back later to check on patient. Emotional support offered to patient this date. Called patient 's daughter Nichol. Nichol expresses concern for patient, specifically about patient's hoarding tendencies, and Aurora being at place of needing to step away and set boundaries for patient. Nichol indicated feeling the home situation is not safe, due to all of the things patient has in the home, and plans to call Adult Protective Services on patient when patient turns 58. Nichol asked if there is a way to get patient a bottle caser if patient is not willing to make changes for self, or force patient into care right now. Educated that not certain patient is at the level of being pink slipped right now, as well as reinforced that patient does have responsibility to self to make change. This real estate underwriter explored with Nichol whether there are any opportunities for patient to have time to go to counseling, noting patient's work schedule and cares for the grandson while Nichol is working. Nichol did not have much of a response to this question. Nichol expressed to know what patient needs, to which this real estate underwriter explored what Nichol thinks might be helpful for patient. Nichol indicated therapy would be helpful, but patient has been unwilling to make changes. Nichol also voiced that does not believe the patient is suicidal. Educated Nichol to availability of counseling, IOP level of care, possible psychiatry support if patient is willing, to [facility] should Nichol feel things at home become unsafe and Nichol wants patient assessed for emergency psychiatric care. Educated also to [facility], if the family would like to look into getting patient court ordered into treatment, should patient not take steps in the near future to make changes. Nichol expressed thanks for information. Updated patient's RN Lucretia and research manufacturing operator Tamiko. Plan: Social work to follow up with patient again for provision of resources, as well as explore willingness for referrals to mental health treatment. -EMELIA Arias
[2023-01-07] MEDS: Vancomycin HCl 2,000 MG in 0.9% Normal Saline (500mL Bag) 500 ML 250 MG IV (17:57)
--- NOTE | 2023-01-07 18:12 | PCM.RX.CS ---
Consult Antibiotic Management Pharmacy has been consulted to manage selected antiobiotic: Vancomycin Type of Intervention Type of Consult: New start Suspected Infection Suspected Infection: Sepsis, Pneumonia and Other (UTI) Prior Doses of Antibiotics Prior Doses of Antibiotics Received/Current Regimen: Vancomycin 2000 mg IV x 1 given 01/07/23 @ 1757 Labs Labs: Sodium 128 mmol/L (136-145) L 01/07/23 14:24 Potassium 4.0 mmol/L (3.5-5.1) 01/07/23 14:24 Chloride 97 mmol/L (98-107) L 01/07/23 14:24 Carbon Dioxide 14.0 mmol/L (21.0-32.0) L 01/07/23 14:24 Anion Gap 17 (5-15) H 01/07/23 14:24 BUN 31 mg/dL (7-18) H 01/07/23 14:24 Creatinine 1.78 mg/dL (0.55-1.02) H 01/07/23 14:24 Est GFR (MDRD) Af Amer 37 mL/min (>60) L 01/07/23 14:24 Est GFR (MDRD) Non-Af 31 mL/min (>60) L 01/07/23 14:24 BUN/Creatinine Ratio 17.4 RATIO (10-20) 01/07/23 14:24 Glucose 259 mg/dL (74-106) H 01/07/23 14:24 Microbiology Microbiology: Microbiology 01/05/23 15:45 Urine, Random Legionella Antigen - Final 01/05/23 15:45 Urine, Random Streptococcus pneumoniae Antigen (M - Final 01/05/23 13:56 Mucosa - Nasopharyngeal Respiratory Panel (PCR) - Final Dosing Weight Weight used for dosin kg Estimated Creatinine Clearance Estimated Creatinine Clearance: ~51 Goal Trough Goal Trough: 15-20 mcg/mL Pharmacy Plan for Drug Dosing Pharmacy Plan for Drug Dosing: Vancomycin 2000 mg IV x 1 given 01/07 @ 1757, followed by 1250 mg IV Q12H. Pharmacy Service will continue to monitor and adjust dosing as required. Follow-Up Labs Follow-Up Labs: Trough: Vancomycin Date/Time Labs Ordered Labs to be done on [date and time ordered]: 01/09/23 @ 5101
[2023-01-07 18:28] LABS: Lactic Acid 1.8 mmol/L (0.4-1.9)
[2023-01-07 19:10] LABS: Bedside Glucose 352 mg/dL (74-106)
[2023-01-07] MEDS: Piperacil/Tazobactam 3.375 GM in 0.9% Normal Saline (50mL MB+) 50 ML IV (21:13)
[2023-01-07] MEDS: Atorvastatin Calcium 40 MG Tablet PO (21:15)
[2023-01-07 21:48] LABS: M R Staph aureus DNA By PCR Negative (Negative); Probe Check PASS; Specimen Processing Control PASS
[2023-01-07 23:07] LABS: Bedside Glucose 265 mg/dL (74-106)
[2023-01-08] VITALS (10 sets, daily range): BP systolic 129–146; BP diastolic 53–70; PULSE 60–72; RESP 14–28; TEMP 36.6–36.9; O2SAT 96–98
[2023-01-08 00:37] LABS: Bedside Glucose 299 mg/dL (74-106)
[2023-01-08 00:37] LABS: Bedside Glucose 294 mg/dL (74-106)
[2023-01-08] MEDS: Vancomycin HCl 1,250 MG in 0.9% Normal Saline (250mL Bag) 250 ML 167 MG IV ×2 (03:11→18:11)
[2023-01-08] MEDS: Insulin Lispro 100 UNIT/ML INSULN.PEN SC ×4 (03:18→22:09)
[2023-01-08 03:45] LABS: Bedside Glucose 152 mg/dL (74-106)
[2023-01-08] MEDS: Piperacil/Tazobactam 3.375 GM in 0.9% Normal Saline (50mL MB+) 50 ML IV ×3 (05:00→22:07)
[2023-01-08] MEDS: Heparin Injection (Vial) 5,000 UNIT/ML VIAL 5000 UNIT SC ×3 (05:00→22:10)
[2023-01-08] MEDS: 0.9% Normal Saline (1000mL) 1,000 ML 15 ML IV (05:00)
[2023-01-08 06:15] LABS: Bedside Glucose 142 mg/dL (74-106)
[2023-01-08 06:46] LABS: Absolute Lymphocyte Count 1.96 X10^3/uL (0.83-4.51); Absolute Neutrophil Count 6.7 X10^3/uL (2.0-7.7); Basophil# 0.06 X10^3/uL; Basophil% 0.6 % (0-1); Eosinophil# 0.17 X10^3/uL; Eosinophils% 1.6 % (0-5); Hemoglobin 9.2 g/dL (12.0-15.0); Lymphocyte # 1.96 X10^3/ul (0.83-4.51); Lymphocyte % 18.8 % (19-41); Mean Corp Hgb Conc 31.7 g/dL (32-36); Mean Corpuscular Hgb 27.4 pg (27.0-32.0); Mean Corpuscular Volume 86.3 fL (81-99); Mean Platelet Vol. 9.8 fl (6.2-12.0); Monocyte% 14.4 % (0-10); NRBC Flagged by Analyzer 0 % (0-5); Neutrophil # 6.67 X10^3/uL (2.7-7.7); Neutrophil % 63.7 % (47-70); Platelet Count 233 K/mm3 (150-450); RBC Distribution Width SD 41.1 fl (35.1-43.9); Red Blood Count 3.36 M/mm3 (4.2-5.4); White Blood Count 10.5 K/mm3 (4.4-11.0)
[2023-01-08 07:44] LABS: Anion Gap 8 (5-15); BUN 40 mg/dL (7-18); BUN/Creat Ratio 23.5 RATIO (10-20); Chloride 103 mmol/L (98-107); EST Glomerular Filtration Rate 33 mL/min (>60); Est Glom Filt Rate - Afr Amer 39 mL/min (>60); Estimated Creatinine Clearance 32.06 ml/min; Glucose 125 mg/dL (74-106); Potassium 3.8 mmol/L (3.5-5.1); Sodium Level 134 mmol/L (136-145)
[2023-01-08 07:54] LABS: Erythrocyte Sedimentation Rate 76 mm/hr (0-30)
[2023-01-08] MEDS: Aspirin E.C. 81 MG Tablet PO (08:28)
[2023-01-08] MEDS: Polyethylene Glycol 3350 17 GM PACKET PO ×2 (08:28→22:10)
[2023-01-08] MEDS: Insulin Glargine-YFGN 100 UNIT/ML Pen 50 UNIT SC (08:29)
--- NOTE | 2023-01-08 09:32 | PCM.PN.HOSP ---
Reason for Visit Reason for Visit: Diagnoses Essential (primary) hypertension (01/05/23) Non-ST elevation (NSTEMI) myocardial infarction (01/05/23) Pneumonia, unspecified organism (01/05/23) Acute respiratory failure with hypoxia (01/05/23) Subjective Subjective Feeling somewhat better this AM, reports she gets some tingling in the fingers on her left hand and her feet which comes and goes has no other focal complaints, denies any rashes or injuries Objective Data Objective Data Vital Signs: Vital Signs Temp Pulse Resp BP Pulse Ox O2 Del Method O2 Flow Rate 97.9 F 62 20 H 132/67 H 98 Bi-pap 2 01/08/23 06:20 01/08/23 06:20 01/08/23 06:20 01/08/23 06:20 01/08/23 06:20 01/08/23 06:20 01/07/23 09:00 FiO2 21 01/08/23 06:20 Oxygen Flow Rate (L/min) 2 Oxygen Delivery Method Bi-pap Weight: 153.5 kg Body Mass Index (BMI) 56.2 Intake & Output: Intake and Output for Last 24 Hours 01/06/23 01/07/23 01/08/23 23:59 23:59 23:59 Intake Total 1851.77 / 2091.77 2835.83 / 3315.83 1864.17 / 1864.17 Output Total 1850 / 2300 1050 / 1050 850 / 850 Balance 1.77 / -208.23 1785.83 / 2265.83 1014.17 / 1014.17 Lab / Micro Data 01/08/23 06:20 01/08/23 06:20 Labs: Laboratory Results - last 24 hr 01/07/23 06:30: ESR 70 H, Serum Osmolality 284, B-Natriuretic Peptide 133.3 H, Vitamin B12 240, Vitamin D 25-Hydroxy 8.1, Procalcitonin 12.11 H 01/07/23 09:38: POC Glucose 294 H 01/07/23 11:17: POC Glucose 299 H 01/07/23 12:10: Sodium 128 L, Potassium 3.7, Chloride 96 L, Carbon Dioxide 23.0, Anion Gap 9, BUN 39 H, Creatinine 1.76 H, Estim Creat Clear Calc 30.97, Est GFR (MDRD) Af Amer 38 L, Est GFR (MDRD) Non-Af 31 L, BUN/Creatinine Ratio 22.2 H, Glucose 286 H, Calcium 8.1 L 01/07/23 14:24: Sodium 128 L, Potassium 4.0, Chloride 97 L, Carbon Dioxide 14.0 L, Anion Gap 17 H, BUN 31 H, Creatinine 1.78 H, Estim Creat Clear Calc 30.62, Est GFR (MDRD) Af Amer 37 L, Est GFR (MDRD) Non-Af 31 L, BUN/Creatinine Ratio 17.4, Glucose 259 H, Calcium 7.9 L 01/07/23 14:32: C-React Prot Ext Range 237.00 H, Folate 16.40, TSH 0.75, Free T4 1.23 01/07/23 16:00: Urine Color Yellow, Urine Clarity Sl. Cloudy, Urine pH 6.0, Ur Specific [place] 1.015, Urine Protein 30 H, Urine Glucose (UA) 100 H, Urine Ketones Negative, Urine Occult Blood 150 H, Urine Nitrite Negative, Urine Bilirubin Negative, Urine Urobilinogen Normal, Ur Leukocyte Esterase 100 H, Urine RBC 0-5 SEEN, Urine WBC 0-5 SEEN, Ur Squamous Epith Cells 0-5 SEEN, Urine Bacteria RARE, Urine Mucus 0 SEEN, Urine Osmolality 401, Ur Random Sodium 26, Urine Creatinine 71.70, Urine Potassium 22.0, Urine Chloride 14, Urine Urea Nitrogen 691 01/07/23 16:41: POC Glucose 352 H 01/07/23 17:34: Lactic Acid 1.8 01/07/23 18:50: MRSA (PCR) Negative 01/07/23 21:19: POC Glucose 265 H 01/08/23 03:15: POC Glucose 152 H 01/08/23 05:55: POC Glucose 142 H 01/08/23 06:20: WBC 10.5, RBC 3.36 L, Hgb 9.2 L, Hct 29.0 L, MCV 86.3, MCH 27.4, MCHC 31.7 L, RDW Std Deviation 41.1, RDW Coeff of Linda 13.0, Plt Count 233, MPV 9.8, Immature Gran % (Auto) 0.900, Neut % (Auto) 63.7, Lymph % (Auto) 18.8 L, [place] % (Auto) 14.4 H, Eos % (Auto) 1.6, Baso % (Auto) 0.6, Absolute Neuts (auto) 6.7, Absolute Lymphs (auto) 1.96, Nucleated RBC % 0, ESR 76 H, Sodium 134 L, Potassium 3.8, Chloride 103, Carbon Dioxide 23.0, Anion Gap 8, BUN 40 H, Creatinine 1.70 H, Estim Creat Clear Calc 32.06, Est GFR (MDRD) Af Amer 39 L, Est GFR (MDRD) Non-Af 33 L, BUN/Creatinine Ratio 23.5 H, Glucose 125 H, Calcium 8.0 L, C-React Prot Ext Range 207.00 H Micro: Microbiology 01/05/23 15:45 Urine, Random Legionella Antigen - Final 01/05/23 15:45 Urine, Random Streptococcus pneumoniae Antigen (M - Final 01/05/23 13:56 Mucosa - Nasopharyngeal Respiratory Panel (PCR) - Final Physical Exam Narrative General: Alert, no acute distress HEENT: Atraumatic, normocephalic Eyes: Anicteric, normal conjunctiva, extraocular movements grossly intact Neck: Supple Respiratory: Improving aeration, not tachypneic and no respiratory distress Cardiovascular: Regular rate and rhythm GI: Soft, nontender, nondistended Extremities: No significant pitting edema Musculoskeletal: Moving all extremities, no palpation over spine Neuro: No overt focal neurological deficits Skin: No rashes appreciated Psych: Cooperative Assessment & Plan Assessment/Plan (1) NSTEMI, initial episode of care: (2) Acute hypoxic respiratory failure: (3) Community acquired pneumonia: PLAN: Plan Patient is a 57-year-old female who presented to [facility] ED on 12/28/2022 with chest pain and worsening shortness of breath. #Febrile -Patient with temperature of 101.8 ?F, unclear etiology she is presently being treated for CAP with Rocephin and azithromycin -We will get blood cultures, Pro-Karthik, ESR, CRP -Endorse later in the afternoon that she thought maybe she had a UTI so UA and urine culture ordered -Respiratory panel and urine antigens negative on admission, had recent COVID good checked may be false positive and unclear if this would be clinically significant -We will continue present antibiotics pending culture data and clinical progress -01/08: Has not been febrile since medications have been adjusted, ESR had been 70 and up trended to 76 so roughly the same and CRP was 237 and down trended to 207 after changing antibiotics, Pro-Karthik was 12. Patient had antibiotics broadened to vancomycin and Zosyn, cultures pending #JAYDEN vs ckd Creatinine 1.44 on admit. Baseline creatinine appears to be around 0.8-0.9. Most likely prerenal etiology in setting of NSTEMI with possible pneumonia as noted above. ? Monitor daily BMP and urine output. Can expand workup if kidney function does not quickly improve. -01/06: Unchanged today, continue supportive care, unclear if JAYDEN or CKD as patient did have a creatinine of 1.6 09/2022 but that was newly elevated. Continue to trend -01/07: Had creatinine of 1.6 09/27/2022 and was subsequently 1.44 here, increased to 1.74 possibly secondary to heart cath, give gentle hydration and will recheck. We will also check BNP to help assess fluid level, check UA and urine culture, will also get urine lites/urine studies, can consider kidney ultrasound pending results and progress -01/08: Did improve slightly today with fluids and antibiotics #Poorly controlled type 2 diabetes with hyperglycemia Blood glucose 335 on admit. Home regimen appears to be Lantus 63 units daily, glipizide 5 mg daily, pioglitazone 30 mg daily. Previous A1c values range from 10 to 12% over the last year. ? Will start Lantus 50 units in the morning with high-dose sliding scale insulin. Adjust as needed. Repeat A1c ordered. -01/06: Continue to adjust insulin -01/07: A1c 10.4, continue to adjust insulin -01/08: Glucose only 142 this a.m., query for improved due to treating underlying infection, to avoid hypoglycemia we will decrease glargine but can reincrease as needed #Mild hyponatremia ? Sodium 131 on admit. Suspect primarily pseudohyponatremia in setting of hyperglycemia, corrected sodium of around 134. Treating diabetes as above. Monitor daily BMP. -01/06: Roughly unchanged today -01/07: Did decrease some, checking serum and urine osmolality and urine studies, patient given gentle hydration as kidney function bumped up after heart cath, check TSH and BNP -01/08: Improved today #NSTEMI Moderate to high concern for type I NSTEMI given elevated troponins on admission, known history of poorly controlled type 2 diabetes and morbid obesity, recent COVID infection. Also have concern for new onset heart failure due to recent COVID infection. Troponin trend 464 to 491 in the ED. No EKG changes noted. BNP 276. Given aspirin 325 mg in the ED and initiated on a heparin drip. ? Admit under inpatient status to PCU. Cardiology consulted. Continue heparin drip. Trend troponin. Monitor telemetry. Echo ordered. Continue home statin. -01/06: Patient for heart cath and had ostial diagonal disease but med management was recommended as well as managing hypertension, echo with EF 65% and no regional wall motion abnormalities -01/07: Continue losartan, aspirin, statin, metoprolol #Acute hypoxia, improving Does not wear oxygen at baseline. Required up to 4 L nasal cannula in the ED, was weaned to 2 L nasal cannula with oxygen saturations in the low to mid 90s. Suspect secondary to possible pneumonia as noted below plus or minus mild volume overload secondary to concern for cardiac dysfunction. ? Wean supplemental oxygen as able. Treating pneumonia as below and NSTEMI as above. Received 1 dose of IV Lasix in the ED with moderate urine output, can spot dose IV Lasix as needed. -01/06: O2 sats improving, will continue antibiotics. Had CTA in ED with small bilateral pleural effusions with minimally dependent lower lobe consolidation and some interlobular septal thickening with scattered ill-defined nodules which could be infectious process or edema and is a precautionary measure recommended follow-up CT in 6 to 8 weeks -01/07: Was tachypneic overnight but ABG demonstrated respiratory alkalosis and patient seemed to improve with improvement of anxiety, patient was ambulated and did not require home O2 #Concern for community-acquired pneumonia, unknown organism; recent COVID infection CTA chest on admit showed small bilateral pleural effusions with small lower lobe consolidation, or lobular septal thickening throughout the right lung that may be secondary to an infectious process versus pulmonary edema. WBC count 14. Afebrile, vital signs otherwise stable. Patient reports mild shortness of breath with recent COVID infection that has significantly worsened over the past few days. Denies any significant cough or sputum production. ? Will empirically treat with azithromycin and ceftriaxone for now. Follow-up sputum culture, respiratory PCR panel, urine antigens. Trend CBC. -01/06: Respiratory panel negative, Legionella and strep pneumo negative. Continue present antibiotics -01/07: See above #Normocytic anemia Hemoglobin 10.3 on admit, MCV 89. Most recent hemoglobin was 11.4 in 09/2022, previous baseline was around 12-13 back in 2018. Unclear etiology, suspect most likely mild worsening from baseline, no bleeding noted. ? Follow-up a.m. CBC. Iron studies, vitamin B12, folate ordered. -01/06: Continue to monitor -01/07: Downtrended slightly but no evidence of blood loss, continue to trend Chronic medical conditions: ? Morbid obesity: BMI 56 on admit, lifestyle modifications encouraged. ? Anxiety/depression: Stable. Continued home citalopram, Ativan 1 mg daily as needed. ? MUNA: Reports compliance with home CPAP. CPAP ordered while inpatient. ? Asthma: Continued home albuterol as needed. ? Hypertension: Continuing medications at present DVT prophylaxis: Heparin subq CODE STATUS: Full code, verified Total clinical time spent by myself addressing the patient's medical issues, reviewing all the data, and collaborating with patient's care team: 51 minutes. Charges/Coding Visit Charges Inpatient E&M: 40313 Subs Hosp L3
[2023-01-08] MEDS: Metoprolol(XL)Succ 50 MG Tablet PO (10:07)
[2023-01-08] MEDS: Citalopram 40 MG TABLET PO (10:10)
[2023-01-08] MEDS: Losartan Potassium 100 MG Tablet PO (10:10)
[2023-01-08] MEDS: Azithromycin 500 MG in Dextrose 5%-Water (250mL Bag) 250 ML 250 MG IV (10:16)
[2023-01-08 11:29] LABS: Bedside Glucose 233 mg/dL (74-106)
--- NOTE | 2023-01-08 11:54 | CASEMGMT ---
Social Work SW met w/pt as a follow up from her speaking w/the SW yesterday. We discussed referrals, pt is agreeable to a psychiatry and counseling referral. Initially she spoke about doing counseling through [facility], as they will pay for 8 sessions (they pay for 8 sessions for anyone who works there 8 hours or more per week). It's unclear however if she can make an appt anywhere or if they have their own network of providers. Pt would prefer something virtual as she cares for her 4 year old grandson every evening. After some discussion pt agreeable for SW to make appts. SW did try Dr. Mosqueda, their office is closed on Fridays. SW gave pt information on [facility] and providers in the area. Pt agreeable to somewhere she can get counseling and psychiatry services. [facility] made aware by ED SW that both [facility] and [facility] offer virtural appts. SW tried [facility] first, could not get through to them(either it did not go through or rang busy). SW then tried [facility], can only make one appt at a time. SW made an appt for intake w/Jeane, 01/20/23 at 9:30am, and she will then refer pt for counseling and psychiatry. SW did let the person making the appt know that pt will want virtual in the evening, it was confirmed this is a possibility. SW gave pt the information for the appt, and put it in the discharge instructions. Pt also had asked SW about getting a duplicate bill, SW called the financial dept w/pt's permission and left a message asking them to send a duplicate bill. [facility] remains available for any additional supportive services to pt. MISTY Gonzalez
[2023-01-08 16:51] LABS: Bedside Glucose 235 mg/dL (74-106)
[2023-01-08] MEDS: Senna/Docusate Sodium 1 Tablet 2 TABLET PO (22:10)
[2023-01-08] MEDS: Atorvastatin Calcium 40 MG Tablet PO (22:11)
[2023-01-08 22:39] LABS: Bedside Glucose 263 mg/dL (74-106)
[2023-01-09] VITALS (9 sets, daily range): BP systolic 121–135; BP diastolic 53–92; PULSE 63–66; RESP 14–27; TEMP 36.1–36.9; O2SAT 96–98
[2023-01-09 05:48] LABS: Absolute Lymphocyte Count 2.37 X10^3/uL (0.83-4.51); Absolute Neutrophil Count 6.2 X10^3/uL (2.0-7.7); Basophil# 0.06 X10^3/uL; Basophil% 0.6 % (0-1); Hematocrit 27.2 % (37-47); Hemoglobin 8.6 g/dL (12.0-15.0); Lymphocyte # 2.37 X10^3/ul (0.83-4.51); Lymphocyte % 23.6 % (19-41); Mean Corp Hgb Conc 31.6 g/dL (32-36); Mean Corpuscular Hgb 27.3 pg (27.0-32.0); Mean Corpuscular Volume 86.3 fL (81-99); Mean Platelet Vol. 9.8 fl (6.2-12.0); Monocyte# 1.15 X10^3/uL; Monocyte% 11.4 % (0-10); NRBC Flagged by Analyzer 0 % (0-5); Neutrophil % 61.7 % (47-70); Platelet Count 252 K/mm3 (150-450); RBC Distribution Width CV 13.2 % (11.6-14.6); RBC Distribution Width SD 41.6 fl (35.1-43.9); Red Blood Count 3.15 M/mm3 (4.2-5.4); White Blood Count 10.1 K/mm3 (4.4-11.0)
[2023-01-09 05:52] LABS: Vancomycin, Trough Level 20.4 ug/mL (5.0-15.0)
[2023-01-09 05:56] LABS: Erythrocyte Sedimentation Rate 82 mm/hr (0-30)
[2023-01-09 06:13] LABS: ALB/GLOB Ratio 0.5 RATIO (0.9-2.4); AST(SGOT) 33 U/L (15-37); Alanine Aminotransfer ALT/SGPT 39 U/L (13-56); Albumin, Serum 1.9 g/dL (3.2-5.0); Alkaline Phosphatase 311 U/L (45-117); Anion Gap 7 (5-15); BUN 36 mg/dL (7-18); BUN/Creat Ratio 25.7 RATIO (10-20); Calcium,Total 7.8 mg/dL (8.5-10.1); Chloride 107 mmol/L (98-107); EST Glomerular Filtration Rate 41 mL/min (>60); Est Glom Filt Rate - Afr Amer 49 mL/min (>60); Estimated Creatinine Clearance 38.93 ml/min; Glucose 116 mg/dL (74-106); Magnesium 2.1 mg/dL (1.6-2.6); Potassium 3.9 mmol/L (3.5-5.1); Protein, Total 5.9 g/dL (6.4-8.2); Sodium Level 138 mmol/L (136-145)
[2023-01-09 06:22] LABS: Procalcitonin 3.15 ng/mL (0.00-0.09)
[2023-01-09] MEDS: Piperacil/Tazobactam 3.375 GM in 0.9% Normal Saline (50mL MB+) 50 ML IV ×3 (06:26→21:34)
[2023-01-09] MEDS: Heparin Injection (Vial) 5,000 UNIT/ML VIAL 5000 UNIT SC ×3 (06:27→21:33)
[2023-01-09] MEDS: Vancomycin Trough/Random Due 1 LAB MC (06:27)
--- NOTE | 2023-01-09 06:38 | PCM.RX.CS ---
Consult Antibiotic Management Pharmacy has been consulted to manage selected antiobiotic: Vancomycin Type of Intervention Type of Consult: Follow-up Labs Labs: Sodium 138 mmol/L (136-145) 01/09/23 05:17 Potassium 3.9 mmol/L (3.5-5.1) 01/09/23 05:17 Chloride 107 mmol/L (98-107) 01/09/23 05:17 Carbon Dioxide 24.0 mmol/L (21.0-32.0) 01/09/23 05:17 Anion Gap 7 (5-15) 01/09/23 05:17 BUN 36 mg/dL (7-18) H 01/09/23 05:17 Creatinine 1.40 mg/dL (0.55-1.02) H 01/09/23 05:17 Est GFR (MDRD) Af Amer 49 mL/min (>60) L 01/09/23 05:17 Est GFR (MDRD) Non-Af 41 mL/min (>60) L 01/09/23 05:17 BUN/Creatinine Ratio 25.7 RATIO (10-20) H 01/09/23 05:17 Glucose 116 mg/dL (74-106) H 01/09/23 05:17 Vancomycin Trough 20.4 ug/mL (5.0-15.0) H 01/09/23 05:17 Microbiology Microbiology: Microbiology 01/05/23 15:45 Urine, Random Legionella Antigen - Final 01/05/23 15:45 Urine, Random Streptococcus pneumoniae Antigen (M - Final 01/05/23 13:56 Mucosa - Nasopharyngeal Respiratory Panel (PCR) - Final Goal Trough Goal Trough: 15-20 mcg/mL Pharmacy Plan for Drug Dosing Pharmacy Plan for Drug Dosing: Pharmacy Service will continue to monitor and adjust dosing as required. TROUGH 20.4 @ 11 HOURS. HOLD DOSE AND DRAW RANDOM DOSE IN 6 HOURS. Follow-Up Labs Follow-Up Labs: Trough: Vancomycin Date/Time Labs Ordered Labs to be done on [date and time ordered]: 01/09 @ 1100
[2023-01-09 07:55] LABS: Bedside Glucose 101 mg/dL (74-106)
[2023-01-09] MEDS: Acetaminophen 325 MG Tablet 650 MG PO (08:18)
[2023-01-09] MEDS: Insulin Glargine-YFGN 100 UNIT/ML Pen 30 UNIT SC (08:20)
[2023-01-09] MEDS: Citalopram 40 MG TABLET PO (08:21)
[2023-01-09] MEDS: Aspirin E.C. 81 MG Tablet PO (08:21)
[2023-01-09] MEDS: Cyanocobalamin 500 MCG Tablet 1000 MCG PO (08:21)
[2023-01-09] MEDS: Losartan Potassium 100 MG Tablet PO (08:21)
[2023-01-09] MEDS: Metoprolol(XL)Succ 50 MG Tablet PO (08:21)
[2023-01-09] MEDS: Cholecalciferol (Vit D3) 125 MCG CAPSULE (5,000 UNITS) PO (08:22)
[2023-01-09] MEDS: Azithromycin 500 MG in Dextrose 5%-Water (250mL Bag) 250 ML 250 MG IV (08:27)
--- NOTE | 2023-01-09 10:15 | PN.HOSP_ITS ---
Reason for Visit Reason for Visit: Diagnoses Essential (primary) hypertension (01/05/23) Non-ST elevation (NSTEMI) myocardial infarction (01/05/23) Pneumonia, unspecified organism (01/05/23) Acute respiratory failure with hypoxia (01/05/23) Subjective Subjective Patient reports feeling generally weak and some shortness of breath on exertion, is feeling better this and extent however Objective Data Objective Data Vital Signs: Vital Signs Temp Pulse Resp BP Pulse Ox O2 Del Method O2 Flow Rate 97.8 F 63 18 135/92 H 98 Room Air 2 01/09/23 08:13 01/09/23 08:21 01/09/23 08:13 01/09/23 08:13 01/09/23 08:13 01/09/23 08:13 01/07/23 09:00 FiO2 21 01/09/23 00:00 Oxygen Flow Rate (L/min) 2 Oxygen Delivery Method Room Air Weight: 153.5 kg Body Mass Index (BMI) 56.2 Intake & Output: Intake and Output for Last 24 Hours 01/07/23 01/08/23 01/09/23 23:59 23:59 23:59 Intake Total 2835.83 / 3315.83 2583.17 / 3033.17 955 / 955 Output Total 1050 / 1050 2150 / 2550 750 / 750 Balance 1785.83 / 2265.83 433.17 / 483.17 205 / 205 Lab / Micro Data 01/09/23 05:17 01/09/23 05:17 Labs: Laboratory Results - last 24 hr 01/08/23 11:09: POC Glucose 233 H 01/08/23 16:25: POC Glucose 235 H 01/08/23 22:06: POC Glucose 263 H 01/09/23 05:17: WBC 10.1, RBC 3.15 L, Hgb 8.6 L, Hct 27.2 L, MCV 86.3, MCH 27.3, MCHC 31.6 L, RDW Std Deviation 41.6, RDW Coeff of Linda 13.2, Plt Count 252, MPV 9.8, Immature Gran % (Auto) 0.700, Neut % (Auto) 61.7, Lymph % (Auto) 23.6, Hudson % (Auto) 11.4 H, Eos % (Auto) 2.0, Baso % (Auto) 0.6, Absolute Neuts (auto) 6.2, Absolute Lymphs (auto) 2.37, Nucleated RBC % 0, ESR 82 H, Sodium 138, Potassium 3.9, Chloride 107, Carbon Dioxide 24.0, Anion Gap 7, BUN 36 H, Creatinine 1.40 H , Estim Creat Clear Calc 38.93, Est GFR (MDRD) Af Amer 49 L, Est GFR (MDRD) Non- Af 41 L, BUN/Creatinine Ratio 25.7 H, Glucose 116 H, Calcium 7.8 L, Magnesium 2.1, Total Bilirubin 0.40, AST 33, ALT 39, Alkaline Phosphatase 311 H, C-React Prot Ext Range 132.00 H, Total Protein 5.9 L, Albumin 1.9 L, Globulin 4.0, Albumin/Globulin Ratio 0.5 L, Procalcitonin 3.15 H, Vancomycin Trough 20.4 H 01/09/23 07:35: POC Glucose 101 Micro: Microbiology 01/07/23 16:00 Urine, Clean Catch Urine Culture - Preliminary Culture exhibits no growth. 01/05/23 15:45 Urine, Random Legionella Antigen - Final 01/05/23 15:45 Urine, Random Streptococcus pneumoniae Antigen (M - Final 01/05/23 13:56 Mucosa - Nasopharyngeal Respiratory Panel (PCR) - Final Physical Exam Narrative General: Alert, no acute distress HEENT: Atraumatic, normocephalic Eyes: Anicteric, normal conjunctiva, extraocular movements grossly intact Neck: Supple Respiratory: Improving aeration, not tachypneic and no respiratory distress Cardiovascular: Regular rate and rhythm GI: Soft, nontender, nondistended Extremities: No significant pitting edema Musculoskeletal: Moving all extremities Neuro: No overt focal neurological deficits Skin: No rashes appreciated Psych: Cooperative Assessment & Plan Assessment/Plan (1) NSTEMI, initial episode of care: (2) Acute hypoxic respiratory failure: (3) Community acquired pneumonia: PLAN: Plan Patient is a 57-year-old female who presented to [facility] ED on 12/28/2022 with chest pain and worsening shortness of breath. #Febrile -Patient with temperature of 101.8 ?F, unclear etiology she is presently being treated for CAP with Rocephin and azithromycin -We will get blood cultures, Pro-Karthik, ESR, CRP -Endorse later in the afternoon that she thought maybe she had a UTI so UA and urine culture ordered -Respiratory panel and urine antigens negative on admission, had recent COVID good checked may be false positive and unclear if this would be clinically significant -We will continue present antibiotics pending culture data and clinical progress -01/08: Has not been febrile since medications have been adjusted, ESR had been 70 and up trended to 76 so roughly the same and CRP was 237 and down trended to 207 after changing antibiotics, Pro-Karthik was 12. Patient had antibiotics broadened to vancomycin and Zosyn, cultures pending -01/09: Blood culture still pending, urine culture no growth to date, patient was able to give sputum culture, CRP and Pro-Karthik downtrending and patient clinically improving, continue to await cultures #JAYDEN vs ckd Creatinine 1.44 on admit. Baseline creatinine appears to be around 0.8-0.9. Most likely prerenal etiology in setting of NSTEMI with possible pneumonia as noted above. ? Monitor daily BMP and urine output. Can expand workup if kidney function does not quickly improve. -01/06: Unchanged today, continue supportive care, unclear if JAYDEN or CKD as marilee ent did have a creatinine of 1.6 09/2022 but that was newly elevated. Continue to trend -01/07: Had creatinine of 1.6 09/27/2022 and was subsequently 1.44 here, increased to 1.74 possibly secondary to heart cath, give gentle hydration and will recheck. We will also check BNP to help assess fluid level, check UA and urine culture, will also get urine lites/urine studies, can consider kidney ultrasound pending results and progress -01/08: Did improve slightly today with fluids and antibiotics -01/09: Continues to improve #Poorly controlled type 2 diabetes with hyperglycemia Blood glucose 335 on admit. Home regimen appears to be Lantus 63 units daily, glipizide 5 mg daily, pioglitazone 30 mg daily. Previous A1c values range from 10 to 12% over the last year. ? Will start Lantus 50 units in the morning with high-dose sliding scale insulin. Adjust as needed. Repeat A1c ordered. -01/06: Continue to adjust insulin -01/07: A1c 10.4, continue to adjust insulin -01/08: Glucose only 142 this a.m., query for improved due to treating underlying infection, to avoid hypoglycemia we will decrease glargine but can reincrease as needed -01/09: A.m. glucose only 100, will further decrease insulin #Mild hyponatremia ? Sodium 131 on admit. Suspect primarily pseudohyponatremia in setting of hyp erglycemia, corrected sodium of around 134. Treating diabetes as above. Monitor daily BMP. -01/06: Roughly unchanged today -01/07: Did decrease some, checking serum and urine osmolality and urine st udies, patient given gentle hydration as kidney function bumped up after heart cath, check TSH and BNP -01/08: Improved today -01/09: Continues to improve #NSTEMI w/ CAD no stenting Moderate to high concern for type I NSTEMI given elevated troponins on admission, known history of poorly controlled type 2 diabetes and morbid obesity, recent COVID infection. Also have concern for new onset heart failure due to recent COVID infection. Troponin trend 464 to 491 in the ED. No EKG changes noted. BNP 276. Given aspirin 325 mg in the ED and initiated on a heparin drip. ? Admit under inpatient status to PCU. Cardiology consulted. Continue heparin drip. Trend troponin. Monitor telemetry. Echo ordered. Continue home statin. -01/06: Patient for heart cath and had ostial diagonal disease but med management was recommended as well as managing hypertension, echo with EF 65% and no regional wall motion abnormalities -01/07: Continue losartan, aspirin, statin, metoprolol #Acute hypoxia, improving Does not wear oxygen at baseline. Required up to 4 L nasal cannula in the ED, was weaned to 2 L nasal cannula with oxygen saturations in the low to mid 90s. Suspect secondary to possible pneumonia as noted below plus or minus mild volume overload secondary to concern for cardiac dysfunction. ? Wean supplemental oxygen as able. Treating pneumonia as below and NSTEMI as above. Received 1 dose of IV Lasix in the ED with moderate urine output, can spot dose IV Lasix as needed. -01/06: O2 sats improving, will continue antibiotics. Had CTA in ED with small bilateral pleural effusions with minimally dependent lower lobe consolidation and some interlobular septal thickening with scattered ill-defined nodules which could be infectious process or edema and is a precautionary measure recommended follow-up CT in 6 to 8 weeks -01/07: Was tachypneic overnight but ABG demonstrated respiratory alkalosis and patient seemed to improve with improvement of anxiety, patient was ambulated and did not require home O2 #Concern for community-acquired pneumonia, unknown organism; recent COVID in fection CTA chest on admit showed small bilateral pleural effusions with small lower lobe consolidation, or lobular septal thickening throughout the right lung that may be secondary to an infectious process versus pulmonary edema. WBC count 14. Afebrile, vital signs otherwise stable. Patient reports mild shortness of breath with recent COVID infection that has significantly worsened over the past few days. Denies any significant cough or sputum production. ? Will empirically treat with azithromycin and ceftriaxone for now. Follow-up sputum culture, respiratory PCR panel, urine antigens. Trend CBC. -01/06: Respiratory panel negative, Legionella and strep pneumo negative. Continue present antibiotics -01/07: See above #Normocytic anemia Hemoglobin 10.3 on admit, MCV 89. Most recent hemoglobin was 11.4 in 09/2022, previous baseline was around 12-13 back in 2018. Unclear etiology, suspect most likely mild worsening from baseline, no bleeding noted. ? Follow-up a.m. CBC. Iron studies, vitamin B12, folate ordered. -01/06: Continue to monitor -01/07: Downtrended slightly but no evidence of blood loss, continue to trend Chronic medical conditions: ? Morbid obesity: BMI 56 on admit, lifestyle modifications encouraged. ? Anxiety/depression: Stable. Continued home citalopram, Ativan 1 mg daily as needed. ? MUNA: Reports compliance with home CPAP. CPAP ordered while inpatient. ? Asthma: Continued home albuterol as needed. ? Hypertension: Continuing medications at present DVT prophylaxis: Heparin subq CODE STATUS: Full code, verified Total clinical time spent by myself addressing the patient's medical issues, reviewing all the data, and collaborating with patient's care team: 40 minutes. Charges/Coding Visit Charges Inpatient E&M: 43076 Subs Hosp L2
[2023-01-09] MEDS: Insulin Lispro 100 UNIT/ML INSULN.PEN SC ×3 (11:19→21:34)
[2023-01-09 11:36] LABS: Vancomycin, Random Level 15.7 ug/mL (0.0-15.0)
[2023-01-09 11:38] LABS: Bedside Glucose 203 mg/dL (74-106)
--- NOTE | 2023-01-09 12:05 | PCM.RX.CS ---
Consult Antibiotic Management Pharmacy has been consulted to manage selected antiobiotic: Vancomycin Type of Intervention Type of Consult: Follow-up Suspected Infection Suspected Infection: Pneumonia Prior Doses of Antibiotics Prior Doses of Antibiotics Received/Current Regimen: Previously on 1250mg iv q12h. Labs Labs: Sodium 138 mmol/L (136-145) 01/09/23 05:17 Potassium 3.9 mmol/L (3.5-5.1) 01/09/23 05:17 Chloride 107 mmol/L (98-107) 01/09/23 05:17 Carbon Dioxide 24.0 mmol/L (21.0-32.0) 01/09/23 05:17 Anion Gap 7 (5-15) 01/09/23 05:17 BUN 36 mg/dL (7-18) H 01/09/23 05:17 Creatinine 1.40 mg/dL (0.55-1.02) H 01/09/23 05:17 Est GFR (MDRD) Af Amer 49 mL/min (>60) L 01/09/23 05:17 Est GFR (MDRD) Non-Af 41 mL/min (>60) L 01/09/23 05:17 BUN/Creatinine Ratio 25.7 RATIO (10-20) H 01/09/23 05:17 Glucose 116 mg/dL (74-106) H 01/09/23 05:17 Vancomycin Trough 20.4 ug/mL (5.0-15.0) H 01/09/23 05:17 Random Vancomycin 15.7 ug/mL (0.0-15.0) H 01/09/23 10:57 Microbiology Microbiology: Microbiology 01/07/23 16:00 Urine, Clean Catch Urine Culture - Preliminary Culture exhibits no growth. 01/05/23 15:45 Urine, Random Legionella Antigen - Final 01/05/23 15:45 Urine, Random Streptococcus pneumoniae Antigen (M - Final 01/05/23 13:56 Mucosa - Nasopharyngeal Respiratory Panel (PCR) - Final Dosing Weight Weight used for dosin kg Estimated Creatinine Clearance Estimated Creatinine Clearance: 65ml/min Goal Trough Goal Trough: 15-20 mcg/mL Pharmacy Plan for Drug Dosing Pharmacy Plan for Drug Dosing: Trough today @0517 was 20.4. A random level today @1057 was 15.7 and in therapeutic range of 15-20. This was ~17 hrs post dose. Using adjusted body weight, CrCl is ~65ml/min. Recommend restarting vancomycin at dose of 1000mg iv q12h with trough level before 4th dose. Pharmacy Service will continue to monitor and adjust dosing as required. Follow-Up Labs Follow-Up Labs: Trough: Vancomycin (01.10.23 @2330)
[2023-01-09] MEDS: Vancomycin IV 1,000 MG/200 ML BAG 200 MG IV ×2 (12:31→23:40)
[2023-01-09 16:56] LABS: Bedside Glucose 215 mg/dL (74-106)
[2023-01-09] MEDS: Atorvastatin Calcium 40 MG Tablet PO (21:33)
[2023-01-09 23:32] LABS: Bedside Glucose 240 mg/dL (74-106)
[2023-01-10 03:30] VITALS: BP 144/57; PULSE 62; RESP 18; TEMP 36.4; O2SAT 97
[2023-01-10] MEDS: Heparin Injection (Vial) 5,000 UNIT/ML VIAL 5000 UNIT SC ×2 (05:51→14:25)
[2023-01-10] MEDS: Piperacil/Tazobactam 3.375 GM in 0.9% Normal Saline (50mL MB+) 50 ML IV ×2 (05:51→14:24)
[2023-01-10 06:12] LABS: Bedside Glucose 137 mg/dL (74-106)
[2023-01-10 07:18] LABS: Absolute Lymphocyte Count 3.15 X10^3/uL (0.83-4.51); Basophil# 0.08 X10^3/uL; Basophil% 0.8 % (0-1); Eosinophil# 0.34 X10^3/uL; Eosinophils% 3.3 % (0-5); Hematocrit 28.2 % (37-47); Hemoglobin 8.8 g/dL (12.0-15.0); Lymphocyte # 3.15 X10^3/ul (0.83-4.51); Lymphocyte % 30.2 % (19-41); Mean Corp Hgb Conc 31.2 g/dL (32-36); Mean Corpuscular Hgb 27.2 pg (27.0-32.0); Mean Corpuscular Volume 87.3 fL (81-99); Mean Platelet Vol. 9.6 fl (6.2-12.0); Monocyte# 0.74 X10^3/uL; Monocyte% 7.1 % (0-10); NRBC Flagged by Analyzer 0 % (0-5); Neutrophil # 6.02 X10^3/uL (2.7-7.7); Neutrophil % 57.6 % (47-70); Platelet Count 317 K/mm3 (150-450); RBC Distribution Width CV 13.3 % (11.6-14.6); RBC Distribution Width SD 42.8 fl (35.1-43.9); Red Blood Count 3.23 M/mm3 (4.2-5.4); White Blood Count 10.4 K/mm3 (4.4-11.0)
[2023-01-10 07:22] VITALS: O2SAT 94
[2023-01-10 08:00] LABS: ALB/GLOB Ratio 0.5 RATIO (0.9-2.4); AST(SGOT) 37 U/L (15-37); Alanine Aminotransfer ALT/SGPT 44 U/L (13-56); Alkaline Phosphatase 359 U/L (45-117); Anion Gap 4 (5-15); BUN 27 mg/dL (7-18); BUN/Creat Ratio 22.7 RATIO (10-20); Calcium,Total 7.9 mg/dL (8.5-10.1); Chloride 107 mmol/L (98-107); Creatinine, Serum 1.19 mg/dL (0.55-1.02); EST Glomerular Filtration Rate 49 mL/min (>60); Est Glom Filt Rate - Afr Amer 60 mL/min (>60); Globulin 4.2 g/dL (2.2-4.2); Glucose 139 mg/dL (74-106); Potassium 4.3 mmol/L (3.5-5.1); Protein, Total 6.2 g/dL (6.4-8.2); Sodium Level 136 mmol/L (136-145)
[2023-01-10 08:22] VITALS: BP 142/81; PULSE 65; RESP 18; TEMP 36.6; O2SAT 98
[2023-01-10] MEDS: Acetaminophen 325 MG Tablet 650 MG PO (08:26)
[2023-01-10] MEDS: Insulin Glargine-YFGN 100 UNIT/ML Pen 25 UNIT SC (08:28)
[2023-01-10 08:29] VITALS: PULSE 65
[2023-01-10] MEDS: Metoprolol(XL)Succ 50 MG Tablet PO (08:29)
[2023-01-10] MEDS: Citalopram 40 MG TABLET PO (08:29)
[2023-01-10] MEDS: Cyanocobalamin 500 MCG Tablet 1000 MCG PO (08:30)
[2023-01-10] MEDS: Aspirin E.C. 81 MG Tablet PO (08:30)
[2023-01-10] MEDS: Losartan Potassium 100 MG Tablet PO (08:30)
[2023-01-10] MEDS: Cholecalciferol (Vit D3) 125 MCG CAPSULE (5,000 UNITS) PO (08:30)
[2023-01-10] MEDS: Azithromycin 500 MG in Dextrose 5%-Water (250mL Bag) 250 ML 250 MG IV (10:31)
[2023-01-10] MEDS: Insulin Lispro 100 UNIT/ML INSULN.PEN SC (11:38)
[2023-01-10 11:57] LABS: Bedside Glucose 288 mg/dL (74-106)
[2023-01-10] MEDS: Vancomycin IV 1,000 MG/200 ML BAG 200 MG IV (12:02)
--- NOTE | 2023-01-10 14:15 | DCINST_ITS ---
Discharge Instructions Diet Discharge Diet: Carb Control Diet Activity Discharge Activity: - (Increase activity as tolerated) Follow Up Care Test Results: Test results from this visit will be discussed in further detail at your follow- up appointment, if applicable. Discharge Plan Admission Admit Date/Time: 01/05/23 13:21 Primary Reason for Your Visit: Shortness of breath Attending Provider: Tasha Kim Primary Care Provider: Collins Mccall NP Consulting Providers: Varun Guzman; Atul Cardozo Instructions Patient Instructions: DASH Plan Eat Heart Healthy Food Additional Instructions / Restrictions: DISCHARGE INSTRUCTIONS PLEASE READ *Please take this with you to your next doctors appointment* -You will be discharged on an increased dose of losartan at 100 mg and were started on metoprolol succinate 50 mg daily. It will also be important that you continue to take your statin that you begin to take a baby aspirin -You will need to follow-up with cardiology upon discharge, please call the office of Dr. Ford upon discharge to schedule your hospital follow-up appointment ) -Your right lung was noted to have concern for pneumonia however imaging recommended with follow-up chest CT in 6 to 8 weeks to verify resolution -Augmentin 875 mg twice daily for 5 days - Due to your glucose levels you have required much less insulin than previously prescribed, would advise starting with 30 units of long-acting with your other medications and monitoring glucose closely as you will likely need to increase your dose moving forward -You will also be discharged on aspirin 81 mg will need to continue atorvastatin -You also had low vitamin B-12 and vitamin D so you will be prescribed replacement for these -Any new prescriptions have been sent to the [facility] in [place] as it is open on Sundays -Please call your primary care provider's office upon discharge to schedule a hospital follow up within 1 week. -For any concerning signs or symptoms please call 911 or proceed to the nearest emergency department Discharge Orders/Prescriptions Prescriptions: New aspirin 81 mg Tablet,Delayed Release (Dr/Ec) 81 mg PO BREAKFAST Qty: 30 0RF cyanocobalamin (vitamin B-12) 500 mcg Tablet 1,000 mcg PO BREAKFAST 30 Days Qty: 60 0RF cholecalciferol (vitamin D3) 125 mcg (5,000 unit) Capsule 125 mcg PO DAILY 30 Days Qty: 30 0RF amoxicillin-pot clavulanate 875-125 mg tablet 1 tab PO BID 5 Days Qty: 10 0RF metoprolol succinate 50 mg Tablet Extended Release 24 Hr 50 mg PO DAILY 30 Days Qty: 30 0RF losartan 100 mg Tablet 100 mg PO DAILY 30 Days Qty: 30 0RF Continued lorazepam 1 mg tablet 1 mg PO DAILY PRN (Reason: Anxiety) albuterol sulfate 90 mcg/actuation HFA aerosol inhaler 2 puff INHALATION Q6H PRN (Reason: shortness of breath) citalopram 40 mg tablet 40 mg PO DAILY pioglitazone 30 mg tablet 30 mg PO DAILY glipizide 5 mg tablet extended release 24hr 5 mg PO DAILY atorvastatin 40 mg tablet 40 mg PO DAILY Changed insulin glargine [Lantus Solostar U-100 Insulin] 100 unit/mL (3 mL) insulin pen 30 unit SC DAILY Qty: 15 0RF Discontinued losartan 50 mg tablet 50 mg PO DAILY Referrals / Follow Up: Counseling,Center [Group of Physicians] - See Referral Note (01/20/23 9:30am with Jeane) Kirk Ford MD [Med Staff - Active Staff] - Collins Mccall NP, LAW ENFORCEMENT DIRECTOR-C [Primary Care Provider] - Within 1 Week Disposition Disposition (needs filled in before D/C Order can be placed): Home, Self Care
[2023-01-10 14:22] VITALS: BP 146/60; PULSE 65; RESP 18; TEMP 36.4; O2SAT 98
--- NOTE | 2023-01-10 14:42 | DS.PCM_ITS ---
Providers Date of Admission: 01/05/23 Date of Discharge: 01/10/23 Primary Care Physician: Collins Mccall, BRITTANEY-Caleb Consultations 01/05/23 14:53 Consult: Cardiology Routine Consulting Provider: Varun Guzman Reason for Consult: NSTEMI EMERGENT Consult: No MD Notified: Yes Date Notified: 01/05/23 Time Notified: 13:43 Method of Notification: Text Reason For Visit: NSTEMI Diagnosis Discharge Diagnosis (1) NSTEMI, initial episode of care: Status: Acute Code(s): I21.4 - Non-ST elevation (NSTEMI) myocardial infarction (2) Acute hypoxic respiratory failure: Status: Acute Code(s): J96.01 - Acute respiratory failure with hypoxia (3) Community acquired pneumonia: Status: Acute Code(s): J18.9 - Pneumonia, unspecified organism Plan #CAP #JAYDEN on ckd unclear subtype #Poorly controlled type 2 diabetes with hyperglycemia #Mild hyponatremia- resolved #NSTEMI w/ CAD no stenting #Acute hypoxia 2/2 CAP #Normocytic anemia #Morbid obesity: # Anxiety/depression #MUNA #Asthma #Hypertension Medications at Discharge Home Medications albuterol sulfate 90 mcg/actuation aerosol inhaler 2 puff inhalation Q6H PRN shortness of breath 08/04/17 lorazepam 1 mg tablet 1 mg PO DAILY PRN Anxiety 08/04/17 atorvastatin 40 mg tablet 40 mg PO DAILY cholesterol 01/05/23 citalopram 40 mg tablet 40 mg PO DAILY depression 01/05/23 glipizide 5 mg tablet, extended release 24 hr 5 mg PO DAILY blood sugar 01/05/23 pioglitazone 30 mg tablet 30 mg PO DAILY blood sugar 01/05/23 amoxicillin 875 mg-potassium clavulanate 125 mg tablet 1 tab PO BID 5 days #10 tabs 01/10/23 aspirin 81 mg tablet,delayed release 81 mg PO BREAKFAST #30 tabs 01/10/23 cholecalciferol (vitamin D3) 125 mcg (5,000 unit) capsule 125 mcg PO DAILY 30 days #30 caps 01/10/23 cyanocobalamin (vitamin B-12) 500 mcg tablet 1,000 mcg (2 x 500 mcg) PO BREAKFAST 30 days #60 tabs 01/10/23 insulin glargine 100 unit/mL (3 mL) subcutaneous pen (Lantus Solostar U-100 Insulin) 30 unit (0.3 mL) subcut DAILY diabetes #15 mL 01/10/23 losartan 100 mg tablet 100 mg PO DAILY 30 days #30 tabs 01/10/23 metoprolol succinate 50 mg tablet,extended release 24 hr 50 mg PO DAILY 30 days #30 tabs 01/10/23 Hospital Course Procedures Cardiac catheterization Summary of Care Provided Minutes Spent on Discharge: 35 Hospital Course: Patient is a 57-year-old female with history of MUNA on CPAP, depression, hypertension, paroxysmal atrial fibrillation, type 2 diabetes mellitus who presented to [facility] 01/05/2023 with worsening shortness of breath. Patient initially required 4 L nasal cannula in the ED to maintain sa turations in the low 90s and there was concern for community-acquired pneumonia and patient started on treatment for this and breathing improved. Did have CTA which showed small bilateral pleural effusions with small lower lobe consolidation or lobular septal thickening throughout the right lung secondary to infection versus pulmonary edema. Patient had several periods where she was tachypneic and anxious but ABG consistent with hyperventilation patient not hypercapnic and had no other etiology identified and improved with medication for anxiety. Additionally when she was admitted she had elevated troponin and was taken heart cath and had ostial diagonal disease but med management was re commended as well as managing hypertension, echo with EF 65% and no regional wall motion abnormalities. Blood pressure medications were added to help medically optimize. Hospitalization complicated by worsening kidney function and there was a query of JAYDEN versus CKD, had a creatinine of 1.6 back in 2022 and suspect there is a large component of CKD however patient given some gentle hydration she had contrast with cath and rechecked and it was slightly up and was going to be rechecked 1 more time for stability prior to deciding on discharge and in the interim patient decline somewhat throughout the day and then spiked a temperature of 101.8 and had elevated CRP, ESR, Pro-Karthik, she was pancultured and her antibiotics broadened to vancomycin and Zosyn. Aside from her respiratory complaints there were no further complaints noted. Patient improved with broadening spectrum of antibiotics and cultures were negative. Suspect pneumonia was the source of her infection and was not covered by initial Coverage. Patient doing much better on day of discharge and feels ready to go home and has no acute complaints. Discharge instructions as followed: -You will be discharged on an increased dose of losartan at 100 mg and were started on metoprolol succinate 50 mg daily. It will also be important that you continue to take your statin that you begin to take a baby aspirin -You will need to follow-up with cardiology upon discharge, please call the office of Dr. Ford upon discharge to schedule your hospital follow-up appointment ) -Your right lung was noted to have concern for pneumonia however imaging recommended with follow-up chest CT in 6 to 8 weeks to verify resolution -Augmentin 875 mg twice daily for 5 days - Due to your glucose levels you have required much less insulin than previously prescribed, would advise starting with 30 units of long-acting with your other medications and monitoring glucose closely as you will likely need to increase your dose moving forward -You will also be discharged on aspirin 81 mg will need to continue atorvastatin -You also had low vitamin B-12 and vitamin D so you will be prescribed replacement for these -Any new prescriptions have been sent to the [facility] in [place] as it is open on Sundays -Please call your primary care provider's office upon discharge to schedule a hospital follow up within 1 week. -For any concerning signs or symptoms please call 911 or proceed to the nearest emergency department Physical Exam Narrative General: Alert, no acute distress HEENT: Atraumatic, normocephalic Eyes: Anicteric, normal conjunctiva, extraocular movements grossly intact Neck: Supple Respiratory: Improving aeration, not tachypneic and no respiratory distress Cardiovascular: Regular rate and rhythm GI: Soft, nontender, nondistended Extremities: No significant pitting edema Musculoskeletal: Moving all extremities Neuro: No overt focal neurological deficits Skin: No rashes appreciated Psych: Cooperative Weight / BMI Weight Weight: 153.5 kg Body Mass Index (BMI) 56.2 ABG / Lab / Microbiology Data 01/10/23 06:20 01/10/23 06:20 Laboratory: Laboratory Results - last 24 hr 01/09/23 16:34: POC Glucose 215 H 01/09/23 21:31: POC Glucose 240 H 01/10/23 05:51: POC Glucose 137 H 01/10/23 06:20: WBC 10.4, RBC 3.23 L, Hgb 8.8 L, Hct 28.2 L, MCV 87.3, MCH 27.2, MCHC 31.2 L, RDW Std Deviation 42.8, RDW Coeff of Linda 13.3, Plt Count 317, MPV 9.6, Immature Gran % (Auto) 1.000 H, Neut % (Auto) 57.6, Lymph % (Auto) 30.2, [place] % (Auto) 7.1, Eos % (Auto) 3.3, Baso % (Auto) 0.8, Absolute Neuts (auto) 6.0, Absolute Lymphs (auto) 3.15, Nucleated RBC % 0, Sodium 136, Potassium 4.3, Chloride 107, Carbon Dioxide 25.0, Anion Gap 4 L, BUN 27 H, Creatinine 1.19 H, Estim Creat Clear Calc 45.80, Est GFR (MDRD) Af Amer 60, Est GFR (MDRD) Non-Af 49 L, BUN/Creatinine Ratio 22.7 H, Glucose 139 H, Calcium 7.9 L, Total Bilirubin 0.40, AST 37, ALT 44, Alkaline Phosphatase 359 H, Total Protein 6.2 L, Albumin 2 .0 L, Globulin 4.2, Albumin/Globulin Ratio 0.5 L 01/10/23 11:36: POC Glucose 288 H Microbiology: Microbiology 01/07/23 16:20 Blood Culture (Wb) - Left Hand Blood Culture - Preliminary No growth in 48 hours. 01/07/23 16:18 Blood Culture (Wb) - Anticubital Left Blood Culture - Preliminary No growth in 48 hours. 01/09/23 08:25 Sputum, Expectorated/Coughed Gram Stain - Final 01/09/23 08:25 Sputum, Expectorated/Coughed Respiratory Culture - Preliminary Appears to be normal respiratory linette. Further studies to follow. 01/07/23 16:00 Urine, Clean Catch Urine Culture - Final Culture exhibits no growth. 01/05/23 15:45 Urine, Random Legionella Antigen - Final 01/05/23 15:45 Urine, Random Streptococcus pneumoniae Antigen (M - Final 01/05/23 13:56 Mucosa - Nasopharyngeal Respiratory Panel (PCR) - Final D/C Instructions Discharge Diet: Carb Control Diet Meaningful Use Info Meaningful Use Diagnoses (Choose all that apply): None applicable Discharge Plan Admission Admit Date/Time: 01/05/23 13:21 Primary Reason for Your Visit: Shortness of breath Attending Provider: Tasha Kim Primary Care Provider: Collins Mccall TOBACCO CUTTER Consulting Providers: Varun Guzman; Atul Cardozo Instructions Patient Instructions: DASH Plan Eat Heart Healthy Food Additional Instructions / Restrictions: DISCHARGE INSTRUCTIONS PLEASE READ *Please take this with you to your next doctors appointment* -You will be discharged on an increased dose of losartan at 100 mg and were started on metoprolol succinate 50 mg daily. It will also be important that you continue to take your statin that you begin to take a baby aspirin -You will need to follow-up with cardiology upon discharge, please call the office of Dr. Ford upon discharge to schedule your hospital follow-up appointment ) -Your right lung was noted to have concern for pneumonia however imaging recommended with follow-up chest CT in 6 to 8 weeks to verify resolution -Augmentin 875 mg twice daily for 5 days - Due to your glucose levels you have required much less insulin than previously prescribed, would advise starting with 30 units of long-acting with your other medications and monitoring glucose closely as you will likely need to increase your dose moving forward -You will also be discharged on aspirin 81 mg will need to continue atorvastatin -You also had low vitamin B-12 and vitamin D so you will be prescribed replaceme nt for these -Any new prescriptions have been sent to the [facility] in [place] as it is open on Sundays -Please call your primary care provider's office upon discharge to schedule a hospital follow up within 1 week. -For any concerning signs or symptoms please call 911 or proceed to the nearest emergency department Discharge Orders/Prescriptions Prescriptions: New aspirin 81 mg Tablet,Delayed Release (Dr/Ec) 81 mg PO BREAKFAST Qty: 30 0RF cyanocobalamin (vitamin B-12) 500 mcg Tablet 1,000 mcg PO BREAKFAST 30 Days Qty: 60 0RF cholecalciferol (vitamin D3) 125 mcg (5,000 unit) Capsule 125 mcg PO DAILY 30 Days Qty: 30 0RF amoxicillin-pot clavulanate 875-125 mg tablet 1 tab PO BID 5 Days Qty: 10 0RF metoprolol succinate 50 mg Tablet Extended Release 24 Hr 50 mg PO DAILY 30 Days Qty: 30 0RF losartan 100 mg Tablet 100 mg PO DAILY 30 Days Qty: 30 0RF Continued lorazepam 1 mg tablet 1 mg PO DAILY PRN (Reason: Anxiety) albuterol sulfate 90 mcg/actuation HFA aerosol inhaler 2 puff INHALATION Q6H PRN (Reason: shortness of breath) citalopram 40 mg tablet 40 mg PO DAILY pioglitazone 30 mg tablet 30 mg PO DAILY glipizide 5 mg tablet extended release 24hr 5 mg PO DAILY atorvastatin 40 mg tablet 40 mg PO DAILY Changed insulin glargine [Lantus Solostar U-100 Insulin] 100 unit/mL (3 mL) insulin pen 30 unit SC DAILY Qty: 15 0RF Discontinued losartan 50 mg tablet 50 mg PO DAILY Referrals / Follow Up: [facility]ing[facility] [Group of Physicians] - See Referral Note (01/20/23 9:30am with Jeane) Kirk Ford MD [Med Staff - Active Staff] - Collins Mccall NP, TOBACCO CUTTER-C [Primary Care Provider] - Within 1 Week Disposition Disposition (needs filled in before D/C Order can be placed): Home, Self Care Charges/Coding Visit Charges Inpatient E&M: 98224 Disch Hosp >30min
== END 2023-01-10 16:26 | disposition home or self-care (01) | DRG 280 ==
LOC: ED 13:24 → PCU 01-06 06:53
PROVIDERS: Admitting Provider Hospitalist; Emergency Provider Emergency Medicine; PCP Nurse Practitioner Family; Visit Provider Internal Medicine
DX: I21.4 Non-ST elevation (NSTEMI) myocardial infarction (principal); J18.9 Pneumonia, unspecified organism; I13.0 Hypertensive heart and chronic kidney disease with heart failure and stage 1 through stage 4 chronic kidney disease, or unspecified chronic kidney disease; E87.3 Alkalosis; E87.20 Acidosis, unspecified; N17.9 Acute kidney failure, unspecified; I50.30 Unspecified diastolic (congestive) heart failure; Z68.43 Body mass index [BMI] 50.0-59.9, adult; N39.0 Urinary tract infection, site not specified; E11.65 Type 2 diabetes mellitus with hyperglycemia; I25.110 Atherosclerotic heart disease of native coronary artery with unstable angina pectoris; Z79.4 Long term (current) use of insulin; E66.01 Morbid (severe) obesity due to excess calories; E11.22 Type 2 diabetes mellitus with diabetic chronic kidney disease; J45.909 Unspecified asthma, uncomplicated; F32.A Depression, unspecified; N18.9 Chronic kidney disease, unspecified; I12.9 Hypertensive chronic kidney disease with stage 1 through stage 4 chronic kidney disease, or unspecified chronic kidney disease; G47.33 Obstructive sleep apnea (adult) (pediatric); U09.9 Post COVID-19 condition, unspecified; R06.4 Hyperventilation; R50.9 Fever, unspecified; Z79.82 Long term (current) use of aspirin; Z87.891 Personal history of nicotine dependence
CPT/HCPCS: 36415; 36600; 71045; 71275; 80048; 80053; 80202; 81001; 82306; 82436; 82570; 82607; 82728; 82746; 82803; 82962; 83036; 83540; 83550; 83605; 83735; 83880; 83930; 83935; 84133; 84145; 84300; 84439; 84443; 84484; 84540; 85025; 85027; 85610; 85652; 85730; 86140; 87040; 87070; 87086; 87205; 87449; 87633; 87641; 93005; 93306; 93458; 94003; 94640; 94660; 94668; 94762; 97116; 97162; 97166; 97530; 97535; 97802; 99152; 99153; 99285; J7030; J7040; J7050; Q9957; Q9967; A4216; C1769; C1894; C8929; J1940

== ENCOUNTER 2023-01-23 22:19 | Emergency (ER) | payer OTHER, SELFPAY ==
[2023-01-23 22:21] VITALS: BP 171/66; PULSE 94; RESP 16; TEMP 36.4; O2SAT 100; BMI 56.5
[2023-01-23 22:37] VITALS: BP 118/57; PULSE 80; RESP 14; TEMP 36.3; O2SAT 100
--- NOTE | 2023-01-23 22:49 | EKG12_ITS ---
Test Reason : CP Blood Pressure : / mmHG Vent. Rate : 089 BPM Atrial Rate : 089 BPM P-R Int : 182 ms QRS Dur : 084 ms QT Int : 378 ms P-R-T Axes : 061 026 052 degrees QTc Int : 459 ms Normal sinus rhythm Normal ECG Confirmed by TAMRA ORDOÑEZ, LUIS ([id number]), news assignment editor MK SEYMOUR ([id number]) on 01/25/2023 1:26:01 PM Referred By: FRAN Confirmed By:LUIS BARBOZA MD
--- NOTE | 2023-01-23 22:52 | EDS_ITS ---
HPI History of Present Illness Chief Complaint: Chest Pain Informant: patient Narrative Narrative: 57-year-old female recently admitted to the emergency department in the hospital for pneumonia and NSTEMI. Heart cath revealed a 70% ostial lesion that was medically managed. She states that she been doing well. Today around noon she had some discomfort in her mid back and felt that her bra strap was too tight across her anterior chest both sides. She states that she felt that maybe she had reached for something wrong. Waxed and waned throughout the day. She states that she lost her appetite just did not feel well. She has a history of diabetes, paroxysmal A-fib, and recent COVID. History of pericardial effusion with tamponade. She notes her breathing has been greatly improved since her last admission. 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) Bilateral pleural effusion Chest pain Chronic neck and back pain CPAP (continuous positive airway pressure) dependence Depression Diabetes Diarrhea Elevated brain natriuretic peptide (BNP) level Elevated troponin Essential (primary) hypertension Former smoker Hemorrhoids Hypertension Incontinence Knee pain Lung disease Morbid obesity Nicotine abuse Obstructive sleep apnea Paroxysmal atrial fibrillation Pericardial effusion with cardiac tamponade (~02/2014) Sleep apnea Type 2 diabetes mellitus without complications Home Medications albuterol sulfate 90 mcg/actuation aerosol inhaler 2 puff inhalation Q6H PRN shortness of breath 08/04/17 [History Last Taken Unknown] lorazepam 1 mg tablet 1 mg PO DAILY PRN Anxiety 08/04/17 [History Last Taken Unknown] atorvastatin 40 mg tablet 40 mg PO DAILY cholesterol 01/05/23 [History Last Taken 01/04/23] citalopram 40 mg tablet 40 mg PO DAILY depression 01/05/23 [History Last Taken 01/04/23] glipizide 5 mg tablet, extended release 24 hr 5 mg PO DAILY blood sugar 01/05/23 [History Last Taken 01/04/23] pioglitazone 30 mg tablet 30 mg PO DAILY blood sugar 01/05/23 [History Last Taken 01/04/23] amoxicillin 875 mg-potassium clavulanate 125 mg tablet 1 tab PO BID 5 days #10 tabs 01/10/23 [Rx Last Taken Unknown] aspirin 81 mg tablet,delayed release 81 mg PO BREAKFAST #30 tabs 01/10/23 [Rx Last Taken Unknown] cholecalciferol (vitamin D3) 125 mcg (5,000 unit) capsule 125 mcg PO DAILY 30 days #30 caps 01/10/23 [Rx Last Taken Unknown] cyanocobalamin (vitamin B-12) 500 mcg tablet 1,000 mcg (2 x 500 mcg) PO BREAKFAST 30 days #60 tabs 01/10/23 [Rx Last Taken Unknown] insulin glargine 100 unit/mL (3 mL) subcutaneous pen (Lantus Solostar U-100 Insulin) 30 unit (0.3 mL) subcut DAILY diabetes #15 mL 01/10/23 [Rx Last Taken 01/04/23] losartan 100 mg tablet 100 mg PO DAILY 30 days #30 tabs 01/10/23 [Rx Last Taken Unknown] metoprolol succinate 50 mg tablet,extended release 24 hr 50 mg PO DAILY 30 days #30 tabs 01/10/23 [Rx Last Taken Unknown] Allergy/AdvReac Type Severity Reaction Status Date / Time Antihistamines - Alkylamine Allergy Shortness Verified 09/27/22 15:35 of breath sulfamethoxazole AdvReac Unknown Verified 09/27/22 15:35 trimethoprim AdvReac Unknown Verified 09/27/22 15:35 Family History Mother Myocardial infarction age 71 CAD (coronary artery disease) stents Surgical History H/O dilation of urethra History of appendectomy History of cataract surgery History of left heart catheterization (09/06/17) Hx of cholecystectomy pericardial window (02/16/14) Status post LASIK surgery of both eyes Social History Smoking Status: Former smoker ROS ROS ED Constitutional Constitutional ED: Denies chills, fever(s) or weight loss Eyes Eyes: Denies change in vision or diplopia ENT ENT ED: Denies ear pain, rhinorrhea or sore throat Cardiovascular Cardiovascular: Reports chest pain; Denies orthopnea, palpitations or racing heartbeat Respiratory/Chest Respiratory/Chest: Denies cough, dyspnea or orthopnea Gastrointestinal Gastrointestinal: Denies abdominal pain, diarrhea, nausea or vomiting Genitourinary Genitourinary ED: Denies dysuria, hematuria or urinary frequency Musculoskeletal Musculoskeletal: Reports back pain; Denies arthralgias or myalgias Integumentary Denies abscess or rash Neurologic Neurologic: Denies headache(s) or weakness Psychiatric Psychiatric: Denies anxiety, depression, suicidal ideation or suicidal thoughts Endocrine Endocrinology: Denies polydipsia, polyphagia or polyuria Allergic/Immunologic Allergic/Immunologic ED: Denies mouth swelling, tongue swelling or urticaria EXAM Physical Exam Const Vital Signs: 01/23/23 22:21 01/23/23 22:32 01/23/23 22:37 Temperature 97.6 F L 97.3 F L Temperature Source Temporal Temporal Pulse Rate 94 80 Respiratory Rate 16 14 Respiratory Effort Normal Blood Pressure 171/66 H 118/57 L Blood Pressure Mean 101 77 Pulse Ox 100 100 Oxygen Delivery Method Room Air Room Air 01/23/23 23:15 01/24/23 00:15 01/24/23 01:15 Temperature Temperature Source Pulse Rate 84 84 82 Respiratory Rate 18 19 H 23 H Respiratory Effort Blood Pressure 132/66 H 118/68 136/47 H Blood Pressure Mean 80 82 69 Pulse Ox 99 98 95 Oxygen Delivery Method Positive well nourished, well developed and obese General Appearance ED: well developed Nutritional Appearance: obese HEENT Reports normocephalic, head/scalp atraumatic and moist mucous membranes Eyes PERRL and EOMs intact bilaterally Neck no lymphadenopathy, supple and no JVD Chest Wall Chest Narrative: Chest wall tender to palpation of the costochondral region bilaterally. She is unsure if this is new. Resp normal respiratory effort and clear to auscultation bilaterally Cardio regular rate, regular rhythm and no murmurs GI normal to inspection, nondistended, normoactive bowel sounds and non-tender Palpation: soft Back/Spine no CVA tenderness and normal ROM Back/Spine Narrative: Patient with tenderness in the mid thoracic paraspinal region. Extremity normal to inspection General Extremety ED: Negative for edema General Extremity: Negative for edema Neuro oriented x3 and CN's II-XII intact bilaterally Sensorium / Orientation: alert Motor Exam: strength 5/5 throughout Psych mental status grossly normal Mood & Affect: Negative for depressed or tearful Skin no rashes or lesions noted and no wounds MDM MDM MDM Narrative Medical decision making narrative: Troponin is normal. EKG shows no acute findings. I do not believe this represents ACS. Her D-dimer is elevated. I did this in the setting of the patient's symptoms and recent hospitalizations. CTA is negative for pulmonary embolism. Though read within the confines of the exam I do not see a clinically significant embolism. Please see the radiologist read. White count 12.5 hemoglobin 10.1. Patient received a dose of Toradol. She has been resting comfortably. At this point I think the patient's symptoms are probably musculoskeletal in nature. The normal troponin is in the setting of greater than 8 hours of constant symptoms. Would recommend conservative treatment at home return if worsening or concerns History & Record Review Discussion w/independent historian: Patient Additional record(s) reviewed:: Prior inpatient record, Prior ED visit and Prior labs Lab Data Attestation: I reviewed the patient's lab results. Labs: Laboratory Results - last 24 hr 01/23/23 01/23/23 22:40 23:55 WBC 12.5 H RBC 3.65 L Hgb 10.1 L Hct 32.2 L MCV 88.2 MCH 27.7 MCHC 31.4 L RDW Std Deviation 44.5 H RDW Coeff of Linda 13.9 Plt Count 408 MPV 9.2 Immature Gran % (Auto) 0.300 Neut % (Auto) 73.0 H Lymph % (Auto) 18.5 L [place] % (Auto) 6.3 Eos % (Auto) 1.1 Baso % (Auto) 0.8 Absolute Neuts (auto) 9.1 H Absolute Lymphs (auto) 2.31 Nucleated RBC % 0 D-Dimer Quant (PE/DVT) 1.63 H* Sodium 133 L Potassium 4.4 Chloride 102 Carbon Dioxide 26.0 Anion Gap 5 BUN 32 H Creatinine 1.21 H Estim Creat Clear Calc 45.05 Est GFR (MDRD) Af Amer 58 L Est GFR (MDRD) Non-Af 48 L BUN/Creatinine Ratio 26.4 H Glucose 386 H Calcium 9.0 Troponin I High Sens 8 Urine Color Yellow Urine Clarity Clear Urine pH 5.0 Ur Specific [place] 1.025 Urine Protein 30 H Urine Glucose (UA) 1000 H Urine Ketones Negative Urine Occult Blood 10 H Urine Nitrite Negative Urine Bilirubin Negative Urine Urobilinogen Normal Ur Leukocyte Esterase 25 H Urine RBC 0-5 SEEN Urine WBC 5-10 SEEN Ur Squamous Epith Cells 0-5 SEEN Urine Bacteria 0 SEEN Urine Mucus 0 SEEN Radiography Diagnostic Testing: Clinical Impression(s) from Imaging Studies Chest X-Ray 01/23/23 23:05 IMPRESSION: Normal x-ray examination of the chest. Electronically Signed: Collins Prieto MD at 23:33 EST , Chest CTA 01/24/23 23:55 IMPRESSION: Suboptimal study. No definite evidence of pulmonary emboli. Residual 4 mm nodular opacity in the right lower lobe otherwise decreased nodular opacities compared to the prior. This may represent residual resolving airspace disease. CT imaging follow-up in 6-8 weeks is recommended to confirm resolution and rule out nodule. Interval decrease in the bilateral pleural effusions and basilar consolidation. Electronically Signed: Roxanna Alford MD at 1:19 EST , EKG Initial EKG: Attestation: I personally reviewed and interpreted this EKG as follows: Comments: Normal sinus rhythm ventricular rate of 89 bpm no concerning features of ACS noted. Discharge Plan Triage Chief Complaint: Chest Pain ED Provider: Harjit Vee Dx/Rx/DC Orders Clinical Impression: Chest pain, Atherosclerotic heart disease of [place] coronary artery without angina pectoris, Back pain Instructions: ED Chest Pain, Noncardiac Prescriptions: No Action lorazepam 1 mg tablet 1 mg PO DAILY PRN (Reason: Anxiety) albuterol sulfate 90 mcg/actuation HFA aerosol inhaler 2 puff INHALATION Q6H PRN (Reason: shortness of breath) citalopram 40 mg tablet 40 mg PO DAILY pioglitazone 30 mg tablet 30 mg PO DAILY glipizide 5 mg tablet extended release 24hr 5 mg PO DAILY atorvastatin 40 mg tablet 40 mg PO DAILY aspirin 81 mg Tablet,Delayed Release (Dr/Ec) 81 mg PO BREAKFAST Qty: 30 0RF cyanocobalamin (vitamin B-12) 500 mcg Tablet 1,000 mcg PO BREAKFAST 30 Days Qty: 60 0RF cholecalciferol (vitamin D3) 125 mcg (5,000 unit) Capsule 125 mcg PO DAILY 30 Days Qty: 30 0RF amoxicillin-pot clavulanate 875-125 mg tablet 1 tab PO BID 5 Days Qty: 10 0RF metoprolol succinate 50 mg Tablet Extended Release 24 Hr 50 mg PO DAILY 30 Days Qty: 30 0RF losartan 100 mg Tablet 100 mg PO DAILY 30 Days Qty: 30 0RF insulin glargine [Lantus Solostar U-100 Insulin] 100 unit/mL (3 mL) insulin pen 30 unit SC DAILY Qty: 15 0RF Primary Care Provider: Collins Mccall NP Referrals: Collins Mccall NP, CUTTING TORCH OPERATOR-C [Primary Care Provider] - 3-5 Days Disposition Disposition: Home, Self Care Discharge Date/Time: 01/24/23 02:49
[2023-01-23] MEDS: Ketorolac 30 MG/ML Syringe IV (22:55)
[2023-01-23 23:04] LABS: Absolute Lymphocyte Count 2.31 X10^3/uL (0.83-4.51); Absolute Neutrophil Count 9.1 X10^3/uL (2.0-7.7); Basophil% 0.8 % (0-1); Eosinophil# 0.14 X10^3/uL; Eosinophils% 1.1 % (0-5); Hematocrit 32.2 % (37-47); Hemoglobin 10.1 g/dL (12.0-15.0); Lymphocyte # 2.31 X10^3/ul (0.83-4.51); Lymphocyte % 18.5 % (19-41); Mean Corp Hgb Conc 31.4 g/dL (32-36); Mean Corpuscular Hgb 27.7 pg (27.0-32.0); Mean Corpuscular Volume 88.2 fL (81-99); Mean Platelet Vol. 9.2 fl (6.2-12.0); Monocyte# 0.79 X10^3/uL; Monocyte% 6.3 % (0-10); NRBC Flagged by Analyzer 0 % (0-5); Neutrophil # 9.08 X10^3/uL (2.7-7.7); Platelet Count 408 K/mm3 (150-450); RBC Distribution Width CV 13.9 % (11.6-14.6); RBC Distribution Width SD 44.5 fl (35.1-43.9); Red Blood Count 3.65 M/mm3 (4.2-5.4); White Blood Count 12.5 K/mm3 (4.4-11.0)
--- NOTE | 2023-01-23 23:05 | RAD_ITS ---
STUDY: X-RAY CHEST REASON FOR EXAM: Female, 57 years old. chest pain TECHNIQUE: Single AP portable view of the chest. COMPARISON: 01/05/2023 FINDINGS: The lungs are clear and expanded. There is no demonstrated pleural abnormality. Normal size heart. Normal mediastinum and darin. Normal visualized pulmonary arteries. Normal visualized aortic arch and descending thoracic aorta. Normal visualized thoracic spine. Normal visualized ribs, clavicles, and shoulders. There is no demonstrated abnormality of the visualized soft tissue structures of the upper abdomen. RAD/Chest 1 View (Portable) IMPRESSION: Normal x-ray examination of the chest. Electronically Signed: Collins Prieto MD at 23:33 EST ,
[2023-01-23 23:15] VITALS: BP 132/66; PULSE 84; RESP 18; O2SAT 99
[2023-01-23 23:28] LABS: Anion Gap 5 (5-15); BUN 32 mg/dL (7-18); BUN/Creat Ratio 26.4 RATIO (10-20); Chloride 102 mmol/L (98-107); Creatinine, Serum 1.21 mg/dL (0.55-1.02); EST Glomerular Filtration Rate 48 mL/min (>60); Est Glom Filt Rate - Afr Amer 58 mL/min (>60); Estimated Creatinine Clearance 45.05 ml/min; Glucose 386 mg/dL (74-106); Potassium 4.4 mmol/L (3.5-5.1); Sodium Level 133 mmol/L (136-145); Troponin-I HS 8 pg/mL (3.0-54.0)
[2023-01-23 23:53] LABS: D-Dimer Quantitative (DVT/PE) 1.63 FEU/ug/m (0.27-0.49)
[2023-01-24 00:06] LABS: Bacteria 0 SEEN /hpf (None Seen); Mucous, Urine 0 SEEN /hpf (<or=2+)
[2023-01-24 00:15] VITALS: BP 118/68; PULSE 84; RESP 19; O2SAT 98
[2023-01-24 00:26] LABS: Color, Urine Yellow (Yellow); Glucose, Dipstick 1000 mg/dl (Normal); Ketone-Dipstick Negative (Negative); Leukocyte Esterase-Dipstick 25 /ul (Negative); Nitrite-Dipstick Negative (Negative); Occult Blood-Urine 10 /ul (Negative); Protein-Dipstick 30 mg/dl (Negative); Specific Gravity, Urine 1.025 (1.002-1.030); Urine Bilirubin Dipstick Negative (Negative); Urine Clarity Clear (Clear); Urine Urobilinogen Normal (Normal)
[2023-01-24 00:46] LABS: Red Blood Cells-Urine 0-5 SEEN /hpf (0-5); Squamous Epithelial Cells - UA 0-5 SEEN /hpf (5-10); White Blood Cells 5-10 SEEN /hpf (0-5)
[2023-01-24 01:15] VITALS: BP 136/47; PULSE 82; RESP 23; O2SAT 95
--- NOTE | 2023-01-24 23:55 | CT_ITS ---
STUDY: CTA CHEST REASON FOR EXAM: Female, 57 years old. pulmonary embolism RADIATION DOSAGE (If Supplied By Facility): CTDIvol = ( 41.74 ) mGy, DLP = ( 783.16 ) mGycm TECHNIQUE: The examination was performed with the intravenous administration of IV 100mL Isovue-370. Post-processing of the angiographic images was performed, with multiplanar reformation and 3D reconstruction. Individualized dose optimization techniques were used for this CT. COMPARISON: CT chest 01/05/2023 FINDINGS: Image degradation related to patient body habitus, suboptimal opacification of the pulmonary arteries. LUNGS: No consolidation. 4 mm nodular opacity in the right lower lobe, in area of previous groundglass opacity on the prior. The other ill-defined nodular opacities seen in the right lung on the prior are not identified. Bibasilar consolidation decreased compared to prior. PLEURA: No pleural effusion. Decreased compared to prior No pneumothorax. PULMONARY VESSELS: Suboptimal opacification especially the vessels in the upper lungs limits evaluation. No definite pulmonary emboli identified. MEDIASTINUM: Unremarkable. HEART: Not enlarged. AORTA/GREAT VESSELS: Thoracic aorta is normal caliber. No aneurysm or dissection. UPPER ABDOMEN: No acute findings. Right kidney was not identified on this scan. BONES/SOFT TISSUES: No acute findings. OTHER: None. CT/CTA Chest W/WO Contrast IMPRESSION: Suboptimal study. No definite evidence of pulmonary emboli. Residual 4 mm nodular opacity in the right lower lobe otherwise decreased nodular opacities compared to the prior. This may represent residual resolving airspace disease. CT imaging follow-up in 6-8 weeks is recommended to confirm resolution and rule out nodule. Interval decrease in the bilateral pleural effusions and basilar consolidation. Electronically Signed: Roxanna Alford MD at 1:19 EST ,
== END 2023-01-24 02:49 | disposition home or self-care (01) ==
PROVIDERS: Emergency Provider Emergency Medicine; PCP Nurse Practitioner Family; Visit Provider Emergency Medicine
DX: R07.9 Chest pain, unspecified (principal); I48.0 Paroxysmal atrial fibrillation; E11.9 Type 2 diabetes mellitus without complications; Z79.4 Long term (current) use of insulin; I10 Essential (primary) hypertension; Z87.891 Personal history of nicotine dependence; M54.9 Dorsalgia, unspecified; I25.10 Atherosclerotic heart disease of native coronary artery without angina pectoris; Z99.89 Dependence on other enabling machines and devices; F41.9 Anxiety disorder, unspecified; Z79.899 Other long term (current) drug therapy; F32.A Depression, unspecified; Z79.84 Long term (current) use of oral hypoglycemic drugs; Z79.82 Long term (current) use of aspirin; Z90.49 Acquired absence of other specified parts of digestive tract; X58.XXXA Exposure to other specified factors, initial encounter
CPT/HCPCS: 71045; 71275; 80048; 81001; 84484; 85025; 85379; 93005; 96374; 99283; Q9967; A4216

== ENCOUNTER 2023-01-30 11:59 | Emergency (ER) | payer OTHER, SELFPAY ==
[2023-01-30 12:01] VITALS: BP 156/70; PULSE 94; RESP 16; TEMP 36.4; O2SAT 98; BMI 55.0
--- NOTE | 2023-01-30 12:17 | EDS_ITS ---
HPI <TALIA Espana - Last Filed: 01/30/23 13:51> History of Present Illness Chief Complaint: Palpitations Narrative Narrative: 57-year-old female with PMH of HTN, HLD, DM2, recently admitted to the hospital on 01/05 for pneumonia and NSTEMI. Heart cath showed a 70% ostial lesion that was medically managed. She states last 3 days she has had bilateral ankle swelling. She went to urgent care to be evaluated and her heart rate was in the 150s so she was sent to the ED. She states she has had some shortness of breath with exertion since she left the hospital but no increase in symptoms. No chest pain, palpitations, syncope, or nausea or vomiting. 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) Bilateral pleural effusion Chest pain Chronic neck and back pain CPAP (continuous positive airway pressure) dependence Depression Diabetes Diarrhea Elevated brain natriuretic peptide (BNP) level Elevated troponin Essential (primary) hypertension Former smoker Hemorrhoids Hypertension Incontinence Knee pain Lung disease Morbid obesity Nicotine abuse Obstructive sleep apnea Paroxysmal atrial fibrillation Pericardial effusion with cardiac tamponade (~02/2014) Sleep apnea Type 2 diabetes mellitus without complications Home Medications albuterol sulfate 90 mcg/actuation aerosol inhaler 2 puff inhalation Q6H PRN shortness of breath 08/04/17 [History Last Taken Unknown] lorazepam 1 mg tablet 1 mg PO DAILY PRN Anxiety 08/04/17 [History Last Taken Unknown] atorvastatin 40 mg tablet 40 mg PO DAILY cholesterol 01/05/23 [History Last Taken 01/04/23] citalopram 40 mg tablet 40 mg PO DAILY depression 01/05/23 [History Last Taken 01/04/23] glipizide 5 mg tablet, extended release 24 hr 5 mg PO DAILY blood sugar 01/05/23 [History Last Taken 01/04/23] pioglitazone 30 mg tablet 30 mg PO DAILY blood sugar 01/05/23 [History Last Taken 01/04/23] amoxicillin 875 mg-potassium clavulanate 125 mg tablet 1 tab PO BID 5 days #10 tabs 01/10/23 [Rx Last Taken Unknown] aspirin 81 mg tablet,delayed release 81 mg PO BREAKFAST #30 tabs 01/10/23 [Rx Last Taken Unknown] cholecalciferol (vitamin D3) 125 mcg (5,000 unit) capsule 125 mcg PO DAILY 30 days #30 caps 01/10/23 [Rx Last Taken Unknown] cyanocobalamin (vitamin B-12) 500 mcg tablet 1,000 mcg (2 x 500 mcg) PO BREAKFAST 30 days #60 tabs 01/10/23 [Rx Last Taken Unknown] insulin glargine 100 unit/mL (3 mL) subcutaneous pen (Lantus Solostar U-100 Insulin) 30 unit (0.3 mL) subcut DAILY diabetes #15 mL 01/10/23 [Rx Last Taken 01/04/23] losartan 100 mg tablet 100 mg PO DAILY 30 days #30 tabs 01/10/23 [Rx Last Taken Unknown] metoprolol succinate 50 mg tablet,extended release 24 hr 50 mg PO DAILY 30 days #30 tabs 01/10/23 [Rx Last Taken Unknown] apixaban 5 mg tablet (Eliquis) 5 mg PO BID 30 days #60 tabs 01/30/23 [Rx Last Taken Unknown] furosemide 40 mg tablet (Lasix) 40 mg PO DAILY 3 days #3 tabs 01/30/23 [Rx Last Taken Unknown] Allergy/AdvReac Type Severity Reaction Status Date / Time Antihistamines - Alkylamine Allergy Shortness Verified 01/30/23 12:01 of breath sulfamethoxazole AdvReac Unknown Verified 01/30/23 12:01 trimethoprim AdvReac Unknown Verified 01/30/23 12:01 Family History Mother Myocardial infarction age 71 CAD (coronary artery disease) stents Surgical History H/O dilation of urethra History of appendectomy History of cataract surgery History of left heart catheterization (09/06/17) Hx of cholecystectomy pericardial window (02/16/14) Status post LASIK surgery of both eyes Social History Smoking Status: Former smoker ROS <TALIA Espana - Last Filed: 01/30/23 13:51> ROS ED ROS Narrative Constitutional: Negative for fever, chills, malaise. CVS: Negative for palpitations, chest pain, syncope. Respiratory: Positive for shortness of breath on exertion. Negative for cough, o rthopnea. GI: Negative for abdominal pain, nausea, vomiting. EXAM <TALIA Espana - Last Filed: 01/30/23 13:51> Physical Exam Narrative Exam Narrative: CONST: Patient sitting in no acute distress. EYES: Normal inspection. NECK: Normal inspection. RESP: No respiratory distress, CTAB. CVS: Regular rate and rhythm, no murmur, no gallop. SKIN: Color normal, no rash, warm, dry, intact. EXTREMITIES: Trace pedal edema of both ankles, full ROM, normal strength and sensation, 2+ DP pulses, no calf tenderness. NEURO: Oriented x4. PSYCH: Normal affect. Const Vital Signs: 01/30/23 12:01 01/30/23 12:14 01/30/23 13:00 Temperature 97.6 F L Temperature Source Temporal Pulse Rate 94 87 Respiratory Rate 16 18 Respiratory Effort Normal Non-Labored Blood Pressure 156/70 H 154/79 H Blood Pressure Mean 98 104 Pulse Ox 98 97 Oxygen Delivery Method Room Air Room Air 01/30/23 13:53 Temperature 98 F Temperature Source Pulse Rate 90 Respiratory Rate 18 Respiratory Effort Blood Pressure 154/79 H Blood Pressure Mean 104 Pulse Ox Oxygen Delivery Method <Dr. Harjit Vee DO - Last Filed: 01/30/23 15:01> Physical Exam Const Vital Signs: 01/30/23 12:01 01/30/23 12:14 01/30/23 13:00 Temperature 97.6 F L Temperature Source Temporal Pulse Rate 94 87 Respiratory Rate 16 18 Respiratory Effort Normal Non-Labored Blood Pressure 156/70 H 154/79 H Blood Pressure Mean 98 104 Pulse Ox 98 97 Oxygen Delivery Method Room Air Room Air 01/30/23 13:53 Temperature 98 F Temperature Source Pulse Rate 90 Respiratory Rate 18 Respiratory Effort Blood Pressure 154/79 H Blood Pressure Mean 104 Pulse Ox Oxygen Delivery Method MDM <TALIA Espnaa - Last Filed: 01/30/23 13:51> MDM MDM Narrative Medical decision making narrative: Patient has had 3 days of bilateral leg edema and went to urgent care. She was noted to be tachycardic and sent here for evaluation. EKG reviewed and is A-fib RVR in 150s. Here she is in normal sinus rhythm in the 80s with stable vital signs. Exam is benign other than trace pedal edema. Labs show chronic anemia at 9.8. Potassium is 5.2 with normal renal function. Glucose 250 with normal CO2 and anion gap. EKG nonischemic and troponin is 18. BNP 91. Echo from a month ago shows normal EF. Radiology records from 2018 [place] she has paroxysmal A-fib but I cannot find any EKGs to correlate with this. However I suspect she does have history of PAF especially since she had an EKG today showing this. She is not on anticoagulation but her [id number] score is 4 so she is appropriate for it. I discussed the case with on-call construction project administrator who recommended initiating Eliquis. She has follow-up scheduled with their office in February. I also prescribed 3 days of Lasix for her lower extremity swelling. She was given return precautions, risks of anticoagulation were thoroughly discussed, and she was discharged in stable condition. Differential: CHF, dependent edema Consults: Cardiology Lab Data Attestation: I reviewed the patient's lab results. Labs: Laboratory Results - last 24 hr 01/30/23 12:35 WBC 9.9 RBC 3.61 L Hgb 9.8 L Hct 31.9 L MCV 88.4 MCH 27.1 MCHC 30.7 L RDW Std Deviation 45.0 H RDW Coeff of Linda 13.8 Plt Count 428 MPV 9.2 Immature Gran % (Auto) 0.300 Neut % (Auto) 66.0 Lymph % (Auto) 24.3 [place] % (Auto) 6.3 Eos % (Auto) 2.4 Baso % (Auto) 0.7 Absolute Neuts (auto) 6.5 Absolute Lymphs (auto) 2.40 Nucleated RBC % 0 Sodium 136 Potassium 5.2 H Chloride 109 H Carbon Dioxide 23.0 Anion Gap 4 L BUN 27 H Creatinine 1.01 Estim Creat Clear Calc 53.97 Est GFR (MDRD) Af Amer 72 Est GFR (MDRD) Non-Af 59 L BUN/Creatinine Ratio 26.7 H Glucose 250 H Calcium 9.3 Troponin I High Sens 18 B-Natriuretic Peptide 91.1 Radiography Diagnostic Testing: Clinical Impression(s) from Imaging Studies Chest X-Ray 01/30/23 12:25 IMPRESSION: Stable borderline cardiomegaly with no acute or active cardiopulmonary disease. Electronically Signed: Rommel Dougherty MD at 12:34 EST , ED attending interpretation of 1-view chest x-ray shows cardiomegaly, no acute infiltrate, edema, or effusion. <Dr. Harjit Vee, DO - Last Filed: 01/30/23 15:01> [facility] Narrative Medical decision making narrative: Patient has had 3 days of bilateral leg edema and went to urgent care. She was noted to be tachycardic and sent here for evaluation. EKG reviewed and is A-fib RVR in 150s. Here she is in normal sinus rhythm in the 80s with stable vital signs. Exam is benign other than trace pedal edema. Labs show chronic anemia at 9.8. Potassium is 5.2 with normal renal function. Glucose 250 with normal CO2 and anion gap. EKG nonischemic and troponin is 18. BNP 91. Echo from a month ago shows normal EF. Radiology records from 2018 [place] she has paroxysmal A-fib but I cannot find any EKGs to correlate with this. However I suspect she does have history of PAF especially since she had an EKG today showing this. She is not on anticoagulation but her [id number] score is 4 so she is appropriate for it. I discussed the case with on-call construction project administrator who recommended initiating Eliquis. She has follow-up scheduled with their office in February. I also prescribed 3 days of Lasix for her lower extremity swelling. She was given return precautions, risks of anticoagulation were thoroughly discussed, and she was discharged in stable condition. Differential: CHF, dependent edema Consults: Cardiology I have personally performed a face to face assessment of the patient and have r eviewed the PELON Note. I performed a substantive portion of the visit including all aspects of the following. My loco findings include: History is patient with recent admission for dyspnea and heart catheterization. Treated medically for NSTEMI. Patient many years ago was given a diagnosis of paroxysmal A-fib but does not believe she has had any recently. She was at urgent care and EKG there demonstrated A-fib with RVR. Patient no longer in A- fib. She notes some swelling of her legs. Exam is normal sinus rhythm. Mild pedal edema. Medical Decison my independent interpretation of the chest x-ray is no acute process. The patient's EKG is normal sinus rhythm. No events on monitor. Discussed with cardiology. She will be started on Eliquis. She should continue her home medications otherwise. She will need to follow-up with cardiology. Other additions or changes: [None] History & Record Review Discussion w/independent historian: Patient Additional record(s) reviewed:: Prior inpatient record, Prior outpatient record, Prior ED visit and Prior labs Lab Data Labs: Laboratory Results - last 24 hr 01/30/23 12:35 WBC 9.9 RBC 3.61 L Hgb 9.8 L Hct 31.9 L MCV 88.4 MCH 27.1 MCHC 30.7 L RDW Std Deviation 45.0 H RDW Coeff of Linda 13.8 Plt Count 428 MPV 9.2 Immature Gran % (Auto) 0.300 Neut % (Auto) 66.0 Lymph % (Auto) 24.3 [place] % (Auto) 6.3 Eos % (Auto) 2.4 Baso % (Auto) 0.7 Absolute Neuts (auto) 6.5 Absolute Lymphs (auto) 2.40 Nucleated RBC % 0 Sodium 136 Potassium 5.2 H Chloride 109 H Carbon Dioxide 23.0 Anion Gap 4 L BUN 27 H Creatinine 1.01 Estim Creat Clear Calc 53.97 Est GFR (MDRD) Af Amer 72 Est GFR (MDRD) Non-Af 59 L BUN/Creatinine Ratio 26.7 H Glucose 250 H Calcium 9.3 Troponin I High Sens 18 B-Natriuretic Peptide 91.1 Radiography Diagnostic Testing: Clinical Impression(s) from Imaging Studies Chest X-Ray 01/30/23 12:25 IMPRESSION: Stable borderline cardiomegaly with no acute or active cardiopulmonary disease. Electronically Signed: Rommel Dougherty MD at 12:34 EST , EKG Initial EKG: Attestation: I personally reviewed and interpreted this EKG as follows: Interpretation: Sinus Rhythm and No Acute Injury Pattern Prior EKG tracings: available for review Prior: Unchanged Discharge Plan Triage Chief Complaint: Palpitations ED Midlevel Provider: Liza Hughes ED Provider: Harjit Vee Dx/Rx/DC Orders Clinical Impression: Bilateral edema of lower extremity, Paroxysmal atrial fibrillation Instructions: ED AFIB Prescriptions: New Eliquis 5 mg tablet 5 mg PO BID 30 Days Qty: 60 0RF Rx Instructions: 10 mg twice a day for the first week. Then 5 mg twice a day. furosemide [Lasix] 40 mg tablet 40 mg PO DAILY 3 Days Qty: 3 0RF No Action lorazepam 1 mg tablet 1 mg PO DAILY PRN (Reason: Anxiety) albuterol sulfate 90 mcg/actuation HFA aerosol inhaler 2 puff INHALATION Q6H PRN (Reason: shortness of breath) citalopram 40 mg tablet 40 mg PO DAILY pioglitazone 30 mg tablet 30 mg PO DAILY glipizide 5 mg tablet extended release 24hr 5 mg PO DAILY atorvastatin 40 mg tablet 40 mg PO DAILY aspirin 81 mg Tablet,Delayed Release (Dr/Ec) 81 mg PO BREAKFAST Qty: 30 0RF cyanocobalamin (vitamin B-12) 500 mcg Tablet 1,000 mcg PO BREAKFAST 30 Days Qty: 60 0RF cholecalciferol (vitamin D3) 125 mcg (5,000 unit) Capsule 125 mcg PO DAILY 30 Days Qty: 30 0RF amoxicillin-pot clavulanate 875-125 mg tablet 1 tab PO BID 5 Days Qty: 10 0RF metoprolol succinate 50 mg Tablet Extended Release 24 Hr 50 mg PO DAILY 30 Days Qty: 30 0RF losartan 100 mg Tablet 100 mg PO DAILY 30 Days Qty: 30 0RF insulin glargine [Lantus Solostar U-100 Insulin] 100 unit/mL (3 mL) insulin pen 30 unit SC DAILY Qty: 15 0RF Primary Care Provider: Collins Mccall NP Referrals: Collins Mccall NP, SENIOR MEDICAL WRITER-C [Primary Care Provider] - Activity Restrictions/Additional Instructions: FOLLOW UP WITH CARDIOLOGY SCHEDULED Instructions for [facility] copay card Go to [employer] and scroll to bottom Click Cost, savings, and support Request ci pay card Fill out info show pharmacy Disposition Disposition: Home, Self Care Discharge Date/Time: 01/30/23 14:01
--- NOTE | 2023-01-30 12:25 | RAD_ITS ---
STUDY: X-RAY CHEST REASON FOR EXAM: Female, 57 years old. Chest pain. TECHNIQUE: Single frontal view of the chest. COMPARISON: January 23, 2023 FINDINGS: The lungs are clear and expanded. There is no demonstrated pleural abnormality. Stable borderline cardiomegaly. Normal mediastinum and darin. Normal visualized pulmonary arteries. Normal visualized aortic arch and descending thoracic aorta. Normal visualized thoracic spine. Normal visualized ribs, clavicles, and shoulders. No abnormality of the visualized soft tissue structures of the upper abdomen. RAD/Chest 1 View (Portable) IMPRESSION: Stable borderline cardiomegaly with no acute or active cardiopulmonary disease. Electronically Signed: Rommel Dougherty MD at 12:34 EST ,
[2023-01-30 12:51] LABS: Absolute Neutrophil Count 6.5 X10^3/uL (2.0-7.7); Basophil# 0.07 X10^3/uL; Basophil% 0.7 % (0-1); Eosinophil# 0.24 X10^3/uL; Eosinophils% 2.4 % (0-5); Hematocrit 31.9 % (37-47); Hemoglobin 9.8 g/dL (12.0-15.0); Lymphocyte % 24.3 % (19-41); Mean Corp Hgb Conc 30.7 g/dL (32-36); Mean Corpuscular Hgb 27.1 pg (27.0-32.0); Mean Corpuscular Volume 88.4 fL (81-99); Mean Platelet Vol. 9.2 fl (6.2-12.0); Monocyte# 0.62 X10^3/uL; Monocyte% 6.3 % (0-10); NRBC Flagged by Analyzer 0 % (0-5); Platelet Count 428 K/mm3 (150-450); RBC Distribution Width CV 13.8 % (11.6-14.6); Red Blood Count 3.61 M/mm3 (4.2-5.4); White Blood Count 9.9 K/mm3 (4.4-11.0)
[2023-01-30 13:00] VITALS: BP 154/79; PULSE 87; RESP 18; O2SAT 97
[2023-01-30 13:08] LABS: Anion Gap 4 (5-15); BUN 27 mg/dL (7-18); BUN/Creat Ratio 26.7 RATIO (10-20); Calcium,Total 9.3 mg/dL (8.5-10.1); Chloride 109 mmol/L (98-107); Creatinine, Serum 1.01 mg/dL (0.55-1.02); EST Glomerular Filtration Rate 59 mL/min (>60); Est Glom Filt Rate - Afr Amer 72 mL/min (>60); Estimated Creatinine Clearance 53.97 ml/min; Glucose 250 mg/dL (74-106); Potassium 5.2 mmol/L (3.5-5.1); Sodium Level 136 mmol/L (136-145); Troponin-I HS 18 pg/mL (3.0-54.0)
[2023-01-30 13:12] LABS: BNP,B-Type NATRIURETIC PEPTIDE 91.1 pg/mL (0-100)
--- NOTE | 2023-01-30 13:34 | EKG12_ITS ---
Test Reason : CHEST PAIN Blood Pressure : / mmHG Vent. Rate : 089 BPM Atrial Rate : 089 BPM P-R Int : 184 ms QRS Dur : 084 ms QT Int : 352 ms P-R-T Axes : 064 037 052 degrees QTc Int : 428 ms Normal sinus rhythm Normal ECG Confirmed by TAMRA ORDOÑEZ, LUIS ([id number]), assistant production editor BRANDON RICO ([id number]) on 02/09/2023 8:51:00 AM Referred By: Confirmed By:LUIS BARBOZA MD
[2023-01-30] MEDS: APIXABAN 5 MG TABLET PO (13:51)
[2023-01-30 13:53] VITALS: BP 154/79; PULSE 90; RESP 18; TEMP 36.6
== END 2023-01-30 14:01 | disposition home or self-care (01) ==
PROVIDERS: Physician Assistant; Emergency Provider Emergency Medicine; PCP Nurse Practitioner Family; Visit Provider Emergency Medicine
DX: R60.0 Localized edema (principal); I48.0 Paroxysmal atrial fibrillation; E11.9 Type 2 diabetes mellitus without complications; I25.10 Atherosclerotic heart disease of native coronary artery without angina pectoris; D64.9 Anemia, unspecified; Z87.891 Personal history of nicotine dependence; I10 Essential (primary) hypertension; E78.5 Hyperlipidemia, unspecified; J45.909 Unspecified asthma, uncomplicated; Z79.01 Long term (current) use of anticoagulants; Z79.899 Other long term (current) drug therapy
CPT/HCPCS: 71045; 80048; 83880; 84484; 85025; 90471; 93005; 99284

== ENCOUNTER → 2023-03-02 | Outpatient (CLI) | payer OTHER, SELFPAY ==
--- NOTE | 2023-03-02 11:40 | RAD_ITS ---
STUDY: X-RAY CHEST REASON FOR EXAM: Female, 58 years old. Shortness of breath, cough TECHNIQUE: PA and lateral views of the chest. COMPARISON: 01/30/2023 FINDINGS: The lungs are clear and expanded. There is no demonstrated pleural abnormality. Normal size heart. Normal mediastinum and darin. Normal visualized pulmonary arteries. Normal visualized aortic arch and descending thoracic aorta. Normal visualized thoracic spine. Normal visualized ribs, clavicles, and shoulders. There is no demonstrated abnormality of the visualized soft tissue structures of the upper abdomen. RAD/Chest PA and Lateral IMPRESSION: Normal x-ray examination of the chest. Electronically Signed: Dave Mcclain MD at 16:50 EST ,
[2023-03-02 13:07] LABS: Absolute Lymphocyte Count 2.22 X10^3/uL (0.83-4.51); Absolute Neutrophil Count 9.1 X10^3/uL (2.0-7.7); Basophil# 0.09 X10^3/uL; Basophil% 0.7 % (0-1); Eosinophil# 0.15 X10^3/uL; Eosinophils% 1.2 % (0-5); Hematocrit 33.3 % (37-47); Hemoglobin 10.1 g/dL (12.0-15.0); Lymphocyte # 2.22 X10^3/ul (0.83-4.51); Lymphocyte % 18.1 % (19-41); Mean Corp Hgb Conc 30.3 g/dL (32-36); Mean Corpuscular Hgb 27.1 pg (27.0-32.0); Mean Corpuscular Volume 89.3 fL (81-99); Mean Platelet Vol. 9.5 fl (6.2-12.0); Monocyte# 0.71 X10^3/uL; Monocyte% 5.8 % (0-10); NRBC Flagged by Analyzer 0 % (0-5); Neutrophil # 9.05 X10^3/uL (2.7-7.7); Neutrophil % 73.7 % (47-70); Platelet Count 454 K/mm3 (150-450); RBC Distribution Width CV 14.5 % (11.6-14.6); RBC Distribution Width SD 46.8 fl (35.1-43.9); Red Blood Count 3.73 M/mm3 (4.2-5.4); White Blood Count 12.3 K/mm3 (4.4-11.0)
[2023-03-02 13:52] LABS: BNP,B-Type NATRIURETIC PEPTIDE 64.1 pg/mL (0-100)
[2023-03-02 13:56] LABS: ALB/GLOB Ratio 0.7 RATIO (0.9-2.4); AST(SGOT) 15 U/L (15-37); Alanine Aminotransfer ALT/SGPT 23 U/L (13-56); Albumin, Serum 3.1 g/dL (3.2-5.0); Alkaline Phosphatase 127 U/L (45-117); Anion Gap 2 (5-15); BUN 33 mg/dL (7-18); BUN/Creat Ratio 28.2 RATIO (10-20); Calcium,Total 9.2 mg/dL (8.5-10.1); Chloride 106 mmol/L (98-107); Creatinine, Serum 1.17 mg/dL (0.55-1.02); EST Glomerular Filtration Rate 50 mL/min (>60); Est Glom Filt Rate - Afr Amer 61 mL/min (>60); Globulin 4.5 g/dL (2.2-4.2); Glucose 235 mg/dL (74-106); Potassium 4.2 mmol/L (3.5-5.1); Protein, Total 7.6 g/dL (6.4-8.2); Sodium Level 138 mmol/L (136-145)
== END | disposition home or self-care (01) ==
PROVIDERS: PCP Nurse Practitioner Family; Referring Provider Nurse Practitioner Family; Visit Provider Nurse Practitioner Family
DX: I10 Essential (primary) hypertension (principal); I48.0 Paroxysmal atrial fibrillation; I25.10 Atherosclerotic heart disease of native coronary artery without angina pectoris; R06.09 Other forms of dyspnea
CPT/HCPCS: 36415; 71046; 80053; 83880; 85025

== ENCOUNTER 2023-03-03 16:21 | Emergency (ER) | payer OTHER, SELFPAY ==
[2023-03-03 16:21] VITALS: BP 147/67; PULSE 89; RESP 17; TEMP 36.1; O2SAT 98
[2023-03-03 18:57] VITALS: BP 146/47; PULSE 89; RESP 20; O2SAT 99; BMI 56.5
--- OUTSIDE RECORDS SUMMARY | 2023-03-03 19:21 | XMS RPT_ITS | CCD ---
Author Name Unknown Address [address] [place] [address] [id number] [place] [address] Organization [facility] Care Team Providers Care Credit Support Specialist Name Role Phone PATO HDZ CNP Attending Unavaila ble PATO HDZ CNP Primary Care Unavaila ble Encounters Encounter Date Encounter Type Care Provider Facility Start: 12-11-2021 ambulatory PATO HDZ CNP Facility:B Payers Date Payer Category Payer Private Health Insurance [id number] 1965 Unknown [id number] Summary Purpose Family History No Family History Records Found Advance Directives No Advanced Directives Records Found Additional Source Comments INFORMATION SOURCE (unrecogn ized section and content) FOR RECORDS PERTAINING TO PATIENTS WHO ARE OR HAVE BEEN ENROLLED IN A CHEMICAL DEPENDENCY/SUBSTANCEABUSE PROGRAM, SOME INFORMATION MAY BE OMITTED. This clinical summary was aggregated from multiple sources. Caution should be exercised in using it in the provision of clinical care. This summary normalizes information from multiple sources, and as a consequence, information in this document may materially change the coding, format and clinical context of patient data. In addition, data may be omitted in some cases. CLINICAL DECISIONS SHOULD BE BASED ON THE PRIMARY CLINICAL RECORDS. [employer] [facility]. provides no warranty or guarantee of the accuracy or completeness of information in this document.
[2023-03-03 19:50] VITALS: BP 133/75; PULSE 89; RESP 20; TEMP 36.1; O2SAT 99
[2023-03-03 19:53] LABS: Absolute Lymphocyte Count 2.92 X10^3/uL (0.83-4.51); Absolute Neutrophil Count 11.7 X10^3/uL (2.0-7.7); Basophil# 0.09 X10^3/uL; Basophil% 0.6 % (0-1); Eosinophil# 0.21 X10^3/uL; Eosinophils% 1.3 % (0-5); Hematocrit 29.2 % (37-47); Hemoglobin 9.1 g/dL (12.0-15.0); Lymphocyte # 2.92 X10^3/ul (0.83-4.51); Lymphocyte % 18.4 % (19-41); Mean Corp Hgb Conc 31.2 g/dL (32-36); Mean Corpuscular Hgb 27.2 pg (27.0-32.0); Mean Corpuscular Volume 87.2 fL (81-99); Mean Platelet Vol. 9.3 fl (6.2-12.0); Monocyte# 0.87 X10^3/uL; Monocyte% 5.5 % (0-10); NRBC Flagged by Analyzer 0 % (0-5); Neutrophil # 11.68 X10^3/uL (2.7-7.7); Neutrophil % 73.8 % (47-70); Platelet Count 383 K/mm3 (150-450); RBC Distribution Width CV 14.4 % (11.6-14.6); RBC Distribution Width SD 45.5 fl (35.1-43.9); Red Blood Count 3.35 M/mm3 (4.2-5.4); White Blood Count 15.8 K/mm3 (4.4-11.0)
[2023-03-03 20:14] LABS: Anion Gap 5 (5-15); BUN 34 mg/dL (7-18); BUN/Creat Ratio 25.8 RATIO (10-20); Calcium,Total 8.8 mg/dL (8.5-10.1); Chloride 106 mmol/L (98-107); Creatinine, Serum 1.32 mg/dL (0.55-1.02); EST Glomerular Filtration Rate 44 mL/min (>60); Est Glom Filt Rate - Afr Amer 53 mL/min (>60); Estimated Creatinine Clearance 68.52 ml/min; Glucose 249 mg/dL (74-106); Potassium 4.1 mmol/L (3.5-5.1); Sodium Level 135 mmol/L (136-145)
--- NOTE | 2023-03-03 20:14 | US_ITS ---
STUDY: VENOUS DOPPLER ULTRASOUND - RIGHT LOWER EXTREMITY REASON FOR EXAM: Female, 58 years old. RT FOOT PAIN/ SWELLING TECHNIQUE: Ultrasound evaluation of the deep vein system to include hay-scale imaging and compression was performed. Hay-scale imaging and Doppler sonographic evaluation, including duplex spectral analysis and qualitative color flow sonography, was performed. COMPARISON: None. FINDINGS: Common Femoral Vein: Normal compression, spontaneity and augmentation. Normal color Doppler. Common Femoral Vein/Greater Saphenous Junction: Normal compression, spontaneity and augmentation. Normal color Doppler. Deep Femoral Vein: Normal compression, spontaneity and augmentation. Normal color Doppler. Femoral Proximal: Normal compression, spontaneity and augmentation. Normal color Doppler. Femoral Middle: Normal compression, spontaneity and augmentation. Normal color Doppler. Femoral Distal: Normal compression, spontaneity and augmentation. Normal color Doppler. Popliteal Vein: Normal compression, spontaneity and augmentation. Normal color Doppler. Posterior Tibial Vein: Not imaged Peroneal Vein: Not imaged US/Venous Duplex Imag/Limited/Uni IMPRESSION: [No DVT. Lower legs not imaged. Electronically Signed: Adam Beck MD at 21:38 EST ,
[2023-03-03 20:26] VITALS: BP 139/55; PULSE 86; RESP 18; O2SAT 99
[2023-03-03] MEDS: traMADol 50 MG Tablet PO (21:24)
--- NOTE | 2023-03-03 21:31 | EX.ED.DYSGE1 ---
HPI History of Present Illness Chief Complaint: Edema Detail of Chief Complaint: Lower extremity edema, right foot redness Informant: patient Onset/Context/Timing Onset: Days Context: Gradual Onset Narrative Narrative: Patient presents secondary to bilateral lower extremity edema. 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 BNP was normal. White count was slightly elevated. Today she noted some redness across the top of her right foot. She does have pain especially in her right leg with ambulation. Patient has not noted fever or chills. She is currently on Xarelto secondary to A-fib. 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) Bilateral pleural effusion Chest pain Chronic neck and back pain CPAP (continuous positive airway pressure) dependence Depression Diabetes Diarrhea Elevated brain natriuretic peptide (BNP) level Elevated troponin Essential (primary) hypertension Former smoker Hemorrhoids Hypertension Incontinence Knee pain Lung disease Morbid obesity Nicotine abuse Obstructive sleep apnea Paroxysmal atrial fibrillation Pericardial effusion with cardiac tamponade (~02/2014) Sleep apnea Type 2 diabetes mellitus without complications Home Medications lorazepam 1 mg tablet 1 mg PO DAILY PRN Anxiety 08/04/17 [History Last Taken Unknown] atorvastatin 40 mg tablet 40 mg PO DAILY cholesterol 01/05/23 [History Last Taken 01/04/23] citalopram 40 mg tablet 40 mg PO DAILY depression 01/05/23 [History Last Taken 01/04/23] glipizide 5 mg tablet, extended release 24 hr 5 mg PO DAILY blood sugar 01/05/23 [History Last Taken 01/04/23] pioglitazone 30 mg tablet 30 mg PO DAILY blood sugar 01/05/23 [History Last Taken 01/04/23] cholecalciferol (vitamin D3) 125 mcg (5,000 unit) capsule 125 mcg PO DAILY 30 days #30 caps 01/10/23 [Rx Last Taken Unknown] cyanocobalamin (vitamin B-12) 500 mcg tablet 1,000 mcg (2 x 500 mcg) PO BREAKFAST 30 days #60 tabs 01/10/23 [Rx Last Taken Unknown] losartan 100 mg tablet 100 mg PO DAILY 30 days #30 tabs 01/10/23 [Rx Last Taken Unknown] metoprolol succinate 50 mg tablet,extended release 24 hr 50 mg PO DAILY 30 days #30 tabs 01/10/23 [Rx Last Taken Unknown] furosemide 40 mg tablet (Lasix) 40 mg PO DAILY PRN edema #30 tabs 02/11/23 [Rx Last Taken Unknown] rivaroxaban 20 mg tablet (Xarelto) 20 mg PO DAILY #30 tabs 02/11/23 [Rx Last Taken Unknown] insulin glargine 100 unit/mL (3 mL) subcutaneous pen (Lantus Solostar U-100 Insulin) 64 unit subcut DAILY diabetes 03/02/23 [History Last Taken Unknown] cephalexin 500 mg capsule 500 mg PO Q6 #40 CAPSULES 03/03/23 [Rx Last Taken Unknown] fluconazole 150 mg tablet 150 mg PO DAILY #1 TAB 03/03/23 [Rx Last Taken Unknown] tramadol 50 mg tablet 50 mg PO Q6H PRN pain #14 tabs 03/03/23 [Rx Last Taken Unknown] Allergy/AdvReac Type Severity Reaction Status Date / Time Antihistamines - Alkylamine Allergy Shortness Verified 03/03/23 16:22 of breath sulfamethoxazole AdvReac Unknown Verified 03/03/23 16:22 trimethoprim AdvReac Unknown Verified 03/03/23 16:22 Family History Mother Myocardial infarction age 71 CAD (coronary artery disease) stents Surgical History H/O dilation of urethra History of appendectomy History of cataract surgery History of left heart catheterization (09/06/17) Hx of cholecystectomy pericardial window (02/16/14) Status post LASIK surgery of both eyes Social History Smoking Status: Former smoker how long ago did patient quit smokin years ago alcohol intake: current alcohol intake frequency: holidays/special occasions only substance use type: does not use caffeine: Yes Type: carbonated beverages Number of servings: 1, coffee Number of servings: 1 and tea Number of servings: 1 ROS ROS ED Constitutional Constitutional ED: Denies chills or fever(s) Eyes Eyes: Denies discharge from eye(s) ENT ENT ED: Denies discharge from eye(s), rhinorrhea or sore throat Cardiovascular Cardiovascular: Denies chest pain or palpitations Respiratory/Chest Respiratory/Chest: Denies cough or dyspnea Gastrointestinal Gastrointestinal: Denies abdominal pain, nausea or vomiting Genitourinary Genitourinary ED: Denies dysuria Musculoskeletal Musculoskeletal: Reports extremity pain; Denies back pain Integumentary Reports rash; Denies Abrasions Neurologic Neurologic: Denies headache(s) or weakness Psychiatric Psychiatric: Denies anxiety or depression Allergic/Immunologic Allergic/Immunologic ED: Denies lip swelling or urticaria EXAM Physical Exam Const Vital Signs: 03/03/23 16:21 03/03/23 18:57 03/03/23 18:57 Temperature 97.0 F L Temperature Source Temporal Pulse Rate 89 89 Respiratory Rate 17 20 H Respiratory Effort Short of Breath Respiratory Pattern Normal Blood Pressure 147/67 H 146/47 H Blood Pressure Mean 93 80 Pulse Ox 98 99 Oxygen Delivery Method Room Air Room Air 03/03/23 19:50 03/03/23 20:26 03/03/23 21:44 Temperature 97 F L Temperature Source Temporal Pulse Rate 89 86 82 Respiratory Rate 20 H 18 16 Respiratory Effort Respiratory Pattern Blood Pressure 133/75 H 139/55 H 164/40 H Blood Pressure Mean 94 83 81 Pulse Ox 99 99 97 Oxygen Delivery Method Room Air Room Air Positive obese Nutritional Appearance: obese HEENT Reports moist mucous membranes Eyes EOMs intact bilaterally Chest Wall inspection of chest normal and palpation of chest normal Resp normal respiratory effort and clear to auscultation bilaterally Cardio regular rate and regular rhythm GI non-tender Palpation: soft Extremity Extremity Narrative: Bilateral lower extremity edema, right greater than left. Area of erythema measuring approximately 4 cm in diameter over the distal first metatarsal. This does not appear to involve the MTP joint. No lymphangitic streaking. No open wounds. Neuro oriented x3 Psych mental status grossly normal MDM MDM MDM Narrative Medical decision making narrative: IV line established. Labwork obtained to evaluate for leukocytosis, anemia, and electrolyte derangement. Patient sent for right lower extremity ultrasound to evaluate for potential DVT. Differential diagnosis includes DVT, cellulitis, gout. History & Record Review Discussion w/independent historian: Patient Lab Data Attestation: I reviewed the patient's lab results. Labs: Laboratory Results - last 24 hr 03/03/23 19:45 WBC 15.8 H RBC 3.35 L Hgb 9.1 L Hct 29.2 L MCV 87.2 MCH 27.2 MCHC 31.2 L RDW Std Deviation 45.5 H RDW Coeff of Linda 14.4 Plt Count 383 MPV 9.3 Immature Gran % (Auto) 0.400 Neut % (Auto) 73.8 H Lymph % (Auto) 18.4 L [place] % (Auto) 5.5 Eos % (Auto) 1.3 Baso % (Auto) 0.6 Absolute Neuts (auto) 11.7 H Absolute Lymphs (auto) 2.92 Nucleated RBC % 0 Sodium 135 L Potassium 4.1 Chloride 106 Carbon Dioxide 24.0 Anion Gap 5 BUN 34 H Creatinine 1.32 H Estim Creat Clear Calc 68.52 Est GFR (MDRD) Af Amer 53 L Est GFR (MDRD) Non-Af 44 L BUN/Creatinine Ratio 25.8 H Glucose 249 H Calcium 8.8 Radiography Diagnostic Testing: Clinical Impression(s) from Imaging Studies Venous Duplex 03/03/23 20:14 IMPRESSION: [No DVT. Lower legs not imaged. Electronically Signed: Adam Beck MD at 21:38 EST , Treatment and Re-Evaluation :: White blood cell count elevated at 15.8 with 73% neutrophils. Hemoglobin is 9.1. Chemistry studies reveal a BUN of 34 and creatinine 1.32. This is near her baseline. Glucose is 249. Right lower extremity ultrasound reveals no evidence of DVT. Test results discussed with the patient. With now developing redness of her foot and increasing white count she will be covered with Keflex for cellulitis. Will also give her tramadol for pain control. Return instructions were provided. Discharge Plan Triage Chief Complaint: Edema ED Provider: Magalys Shi Dx/Rx/DC Orders Clinical Impression: Cellulitis Instructions: ED Cellulitis Prescriptions: New tramadol 50 mg tablet 50 mg PO Q6H PRN (Reason: pain) Qty: 14 0RF fluconazole 150 mg tablet 150 mg PO DAILY Qty: 1 0RF Rx Instructions: Take a completion of your antibiotic course. cephalexin 500 mg capsule 500 mg PO Q6 Qty: 40 0RF No Action lorazepam 1 mg tablet 1 mg PO DAILY PRN (Reason: Anxiety) Xarelto 20 mg tablet 20 mg PO DAILY Qty: 30 11RF Rx Instructions: must administer with evening meal furosemide [Lasix] 40 mg tablet 40 mg PO DAILY PRN (Reason: edema) Qty: 30 0RF insulin glargine [Lantus Solostar U-100 Insulin] 100 unit/mL (3 mL) insulin pen 64 unit SC DAILY citalopram 40 mg tablet 40 mg PO DAILY pioglitazone 30 mg tablet 30 mg PO DAILY glipizide 5 mg tablet extended release 24hr 5 mg PO DAILY atorvastatin 40 mg tablet 40 mg PO DAILY cyanocobalamin (vitamin B-12) 500 mcg Tablet 1,000 mcg PO BREAKFAST 30 Days Qty: 60 0RF cholecalciferol (vitamin D3) 125 mcg (5,000 unit) Capsule 125 mcg PO DAILY 30 Days Qty: 30 0RF metoprolol succinate 50 mg Tablet Extended Release 24 Hr 50 mg PO DAILY 30 Days Qty: 30 0RF losartan 100 mg Tablet 100 mg PO DAILY 30 Days Qty: 30 0RF Primary Care Provider: Collins Mccall NP Referrals: Collins Mccall NP, [employer] [Primary Care Provider] - 5-7 Days Disposition Disposition: Home, Self Care Discharge Date/Time: 03/03/23 21:46
[2023-03-03] MEDS: Cephalexin 250 MG Capsule 500 MG PO (21:40)
[2023-03-03 21:44] VITALS: BP 164/40; PULSE 82; RESP 16; O2SAT 97
== END 2023-03-03 21:46 | disposition home or self-care (01) ==
PROVIDERS: Emergency Provider Emergency Medicine; PCP Nurse Practitioner Family; Visit Provider Emergency Medicine
DX: L03.115 Cellulitis of right lower limb (principal); I48.0 Paroxysmal atrial fibrillation; E66.01 Morbid (severe) obesity due to excess calories; E11.9 Type 2 diabetes mellitus without complications; Z87.891 Personal history of nicotine dependence; R60.0 Localized edema; Z79.01 Long term (current) use of anticoagulants; J45.909 Unspecified asthma, uncomplicated; I25.10 Atherosclerotic heart disease of native coronary artery without angina pectoris; I10 Essential (primary) hypertension; Z79.899 Other long term (current) drug therapy; L03.116 Cellulitis of left lower limb
CPT/HCPCS: 80048; 85025; 93971; 99283; A4216

== ENCOUNTER → 2023-05-21 | Outpatient (CLI) | payer SELFPAY ==
[2023-05-21 11:54] LABS: Hematocrit 35.2 % (37-47); Hemoglobin 10.9 g/dL (12.0-15.0); Mean Corpuscular Hgb 27.2 pg (27.0-32.0); Mean Corpuscular Volume 87.8 fL (81-99); Mean Platelet Vol. 8.9 fl (6.2-12.0); Platelet Count 375 K/mm3 (150-450); RBC Distribution Width CV 13.5 % (11.6-14.6); RBC Distribution Width SD 43.7 fl (35.1-43.9); Red Blood Count 4.01 M/mm3 (4.2-5.4); White Blood Count 8.4 K/mm3 (4.4-11.0)
[2023-05-21 12:16] LABS: Hemoglobin A1c 9.7 % (3.8-5.6)
[2023-05-21 12:28] LABS: Vitamin D,25 Hydroxy 25.6 ng/mL
[2023-05-21 12:31] LABS: ALB/GLOB Ratio 0.7 RATIO (0.9-2.4); AST(SGOT) 18 U/L (15-37); Alanine Aminotransfer ALT/SGPT 24 U/L (13-56); Alkaline Phosphatase 112 U/L (45-117); Anion Gap 0 (5-15); BUN 22 mg/dL (7-18); BUN/Creat Ratio 21.8 RATIO (10-20); Calcium,Total 9.5 mg/dL (8.5-10.1); Chloride 105 mmol/L (98-107); Creatinine, Serum 1.01 mg/dL (0.55-1.02); EST Glomerular Filtration Rate 59 mL/min (>60); Est Glom Filt Rate - Afr Amer 72 mL/min (>60); Globulin 4.5 g/dL (2.2-4.2); Glucose 149 mg/dL (74-106); Potassium 5.2 mmol/L (3.5-5.1); Protein, Total 7.5 g/dL (6.4-8.2); Sodium Level 135 mmol/L (136-145); Thyroid Stim Hormone (TSH) 1.53 uIU/mL (0.358-3.74)
== END | disposition home or self-care (01) ==
PROVIDERS: PCP Nurse Practitioner Family; Referring Provider Nurse Practitioner Family; Visit Provider Nurse Practitioner Family
DX: J96.00 Acute respiratory failure, unspecified whether with hypoxia or hypercapnia (principal); I48.0 Paroxysmal atrial fibrillation; I21.4 Non-ST elevation (NSTEMI) myocardial infarction; E11.65 Type 2 diabetes mellitus with hyperglycemia; E11.22 Type 2 diabetes mellitus with diabetic chronic kidney disease; N18.30 Chronic kidney disease, stage 3 unspecified; I25.10 Atherosclerotic heart disease of native coronary artery without angina pectoris; E55.9 Vitamin D deficiency, unspecified
CPT/HCPCS: 36415; 80053; 82306; 83036; 84443; 85027; 86140

== ENCOUNTER → 2023-10-05 | Outpatient (CLI) | payer OTHER, SELFPAY ==
[2023-10-05 17:58] LABS: Hematocrit 33.2 % (37-47); Hemoglobin 10.4 g/dL (12.0-15.0); Mean Corp Hgb Conc 31.3 g/dL (32-36); Mean Corpuscular Hgb 27.8 pg (27.0-32.0); Mean Corpuscular Volume 88.8 fL (81-99); Platelet Count 357 K/mm3 (150-450); RBC Distribution Width CV 13.6 % (11.6-14.6); RBC Distribution Width SD 43.8 fl (35.1-43.9); Red Blood Count 3.74 M/mm3 (4.2-5.4); White Blood Count 11.5 K/mm3 (4.4-11.0)
[2023-10-05 18:04] LABS: ALB/GLOB Ratio 0.7 RATIO (0.9-2.4); AST(SGOT) 15 U/L (15-37); Alanine Aminotransfer ALT/SGPT 19 U/L (13-56); Albumin, Serum 2.9 g/dL (3.2-5.0); Alkaline Phosphatase 88 U/L (45-117); Anion Gap 6 (5-15); BUN 27 mg/dL (7-18); BUN/Creat Ratio 28.6 RATIO (10-20); Chloride 104 mmol/L (98-107); Cholesterol 126 mg/dL (200); Creatinine, Serum 0.94 mg/dL (0.55-1.02); EST Glomerular Filtration Rate 64 mL/min (>60); Est Glom Filt Rate - Afr Amer 78 mL/min (>60); Glucose 123 mg/dL (74-106); High Density Lipoprotein 44 mg/dL; Potassium 4.6 mmol/L (3.5-5.1); Protein, Total 6.9 g/dL (6.4-8.2); Sodium Level 136 mmol/L (136-145); Triglycerides 77 mg/dL; Very Low Density Lipoprotein 15 mg/dL (5-40)
[2023-10-05 18:06] LABS: Vitamin D,25 Hydroxy 25.1 ng/mL
== END | disposition home or self-care (01) ==
PROVIDERS: PCP Nurse Practitioner Family; Referring Provider Nurse Practitioner Family; Visit Provider Nurse Practitioner Family
DX: E11.22 Type 2 diabetes mellitus with diabetic chronic kidney disease (principal); N18.30 Chronic kidney disease, stage 3 unspecified; I12.9 Hypertensive chronic kidney disease with stage 1 through stage 4 chronic kidney disease, or unspecified chronic kidney disease; E78.5 Hyperlipidemia, unspecified; E55.9 Vitamin D deficiency, unspecified
CPT/HCPCS: 36415; 80053; 80061; 82306; 83036; 83970; 85027

== ENCOUNTER 2024-07-23 20:24 | Emergency (ER) | payer BC, SELFPAY ==
[2024-07-23] VITALS (8 sets, daily range): BP systolic 172–215; BP diastolic 58–95; PULSE 80–86; RESP 13–28; TEMP 36.6–36.9; O2SAT 98–100; BMI 56.0
--- NOTE | 2024-07-23 21:03 | EKG12_ITS ---
Test Reason : DYSRHYTHMIA Blood Pressure : */* mmHG Vent. Rate : 87 BPM Atrial Rate : 87 BPM P-R Int : 178 ms QRS Dur : 84 ms QT Int : 386 ms P-R-T Axes : 58 40 84 degrees QTcB Int : 464 ms Sinus rhythm with Premature atrial complexes Otherwise normal ECG Confirmed by TAMRA ORDOÑEZ, LUIS ([id number]), technical writer and editor MK SEYMOUR ([id number]) on 07/25/2024 7:37:31 AM Referred By: Confirmed By: LUIS BARBOZA MD
--- NOTE | 2024-07-23 21:04 | EDS_ITS ---
HPI History of Present Illness Chief Complaint: Shortness of Breath Informant: patient and family (Daughter) Narrative Narrative: 59-year-old female presenting to the emergency room with dyspnea. Patient states that over the past week she has had wheezing shortness of breath. She relates last night that she was retaining fluid and her legs were more swollen. She began taking as needed Lasix. She took 40 mg last night and 20 mg this afternoon. Tonight she was unable to lay flat. She states that emotionally she is very upset. She has had problems with her insurance and has not been taking her medications very regularly including her antidepressant. She now has her medications. This has been very stressful for her and she is very tearful. She denies chest pain radial, or fever. 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) Anxiety Diabetes Former smoker CPAP (continuous positive airway pressure) dependence Sleep apnea Hypertension Bilateral pleural effusion Elevated troponin Elevated brain natriuretic peptide (BNP) level Essential (primary) hypertension Arthritis Lung disease Hemorrhoids Diarrhea Knee pain Asthma Chronic neck and back pain Incontinence Abnormal cardiovascular stress test Chest pain Pericardial effusion with cardiac tamponade (~02/2014) Morbid obesity Paroxysmal atrial fibrillation Depression Type 2 diabetes mellitus without complications Obstructive sleep apnea Nicotine abuse Home Medications ?Medication ?Instructions ?Recorded ?Last Taken ?Type lorazepam 1 mg tablet 1 mg PO DAILY PRN Anxiety Unknown History atorvastatin 40 mg tablet 40 mg PO DAILY cholesterol 1 03/07/22 01/04/23 History glipizide 5 mg tablet, extended 5 mg PO DAILY blood gamez gar 01/05/23 01/04/23 History release 24 hr pioglitazone 30 mg tablet 30 mg PO DAILY blood sugar 1 03/07/22 01/04/23 History cyanocobalamin (vitamin B-12) 500 1,000 mcg (2 x 500 m cg) PO 01/10/23 Unknown Rx mcg tablet BREAKFAST 30 days #60 tabs insulin glargine 100 unit/mL (3 64 unit subcut DAILY d iabetes 03/02/23 Unknown History mL) subcutaneous pen (Lantus Solostar U-100 Insulin) albuterol sulfate 90 mcg/actuation 2 puff inhalation Q 4-6H PRN 03/31/23 Unknown Rx aerosol inhaler shortness of breath or [place] ing #6.7 grams ferrous sulfate 325 mg (65 mg 325 mg PO DAILY #30 tabs 03/31/23 Unknown Rx iron) tablet losartan 100 mg tablet 100 mg PO DAILY #90 tabs Unknown Rx furosemide 40 mg tablet (Lasix) 40 mg PO DAILY PRN nina ma 06/22/23 Unknown History furosemide 40 mg tablet (Lasix) 40 mg PO BID PRN edema #20 tabs 07/23/24 Unknown Rx lorazepam 0.5 mg tablet (Ativan) 0.5 mg PO BID PRN anx iety #10 tabs 07/23/24 Unknown Rx venlafaxine 150 mg 150 mg PO DAILY 07/23/24 Unk nown History capsule,extended release 24 hr Allergy/AdvReac Type Severity Reaction Status Date / Time Antihistamines - Alkylamine Allergy Shortness Verified 07/23/24 20:24 of breath sulfamethoxazole AdvReac Unknown Verified 07/23/24 20:24 trimethoprim AdvReac Unknown Verified 07/23/24 20:24 Family History Mother Myocardial infarction age 71 CAD (coronary artery disease) stents Surgical History History of left heart catheterization (09/06/17) History of cataract surgery Status post LASIK surgery of both eyes Hx of cholecystectomy History of appendectomy H/O dilation of urethra pericardial window (02/16/14) Social History Smoking Status: Former smoker how long ago did patient quit smokin years ago alcohol intake: current alcohol intake frequency: holidays/special occasions only substance use type: does not use caffeine: Yes Type: carbonated beverages Number of servings: 1, coffee Number of servings: 1 and tea Number of servings: 1 ROS ROS ED Constitutional Constitutional ED: Reports other Details: Weight gain ; Denies chills, fever(s) or weight loss Eyes Eyes: Denies change in vision or diplopia ENT ENT ED: Denies ear pain, rhinorrhea or sore throat Cardiovascular Cardiovascular: Reports orthopnea and other Details: Leg swelling ; Denies chest pain, palpitations or racing heartbeat Respiratory/Chest Respiratory/Chest: Reports dyspnea, dyspnea on exertion and orthopnea; Denies cough Gastrointestinal Gastrointestinal: Denies abdominal pain, diarrhea, nausea or vomiting Genitourinary Genitourinary ED: Denies dysuria, hematuria or urinary frequency Musculoskeletal Musculoskeletal: Denies arthralgias or myalgias Integumentary Denies abscess or rash Neurologic Neurologic: Denies headache(s) or weakness Psychiatric Psychiatric: Reports anxiety and depression; Denies suicidal ideation or suicidal thoughts Endocrine Endocrinology: Denies polydipsia, polyphagia or polyuria Allergic/Immunologic Allergic/Immunologic ED: Denies mouth swelling, tongue swelling or urticaria EXAM Physical Exam Const Vital Signs: 07/23/24 20:25 07/23/24 20:28 07/23/24 20:55 Temperature 97.9 F 98 F Temperature Source Oral Oral Pulse Rate 86 84 Respiratory Rate 28 H 13 Respiratory Effort Short of Breath Labored Respiratory Depth Normal Respiratory Pattern Tachypnea Blood Pressure 215/90 H 172/79 H Blood Pressure Mean 131 110 Pulse Ox 98 98 Oxygen Delivery Method Room Air Room Air 07/23/24 20:56 07/23/24 21:20 07/23/24 22:00 Temperature Temperature Source Pulse Rate 81 84 80 Respiratory Rate 14 14 21 H Respiratory Effort Respiratory Depth Respiratory Pattern Blood Pressure 172/79 H 187/95 H 174/58 H Blood Pressure Mean 110 125 96 Pulse Ox 98 98 98 Oxygen Delivery Method Room Air Room Air Room Air 07/23/24 23:00 Temperature Temperature Source Pulse Rate 80 Respiratory Rate 22 H Respiratory Effort Respiratory Depth Respiratory Pattern Blood Pressure 174/67 H Blood Pressure Mean 102 Pulse Ox 99 Oxygen Delivery Method Room Air Positive well nourished, well developed and obese General Appearance ED: well developed and NAD Nutritional Appearance: obese HEENT Reports normocephalic, head/scalp atraumatic and moist mucous membranes Eyes PERRL and EOMs intact bilaterally Neck no lymphadenopathy, supple and no JVD Resp normal respiratory effort and clear to auscultation bilaterally Cardio regular rate, regular rhythm and no murmurs GI normal to inspection, nondistended, normoactive bowel sounds and non-tender Palpation: soft Back/Spine no CVA tenderness and normal ROM Extremity General Extremety ED: Yes edema General Extremity: edema bilateral lower extremity Details: mild Neuro oriented x3 and CN's II-XII intact bilaterally Sensorium / Orientation: alert Motor Exam: strength 5/5 throughout Psych mental status grossly normal Mood & Affect: depressed and tearful Skin no rashes or lesions noted and no wounds MDM MDM MDM Narrative Medical decision making narrative: Differential diagnosis includes but to depression anxiety congestive heart failure pleural effusion pneumonia lymphedema anasarca acute kidney injury electrolyte abnormalities 2 sets of cardiac enzymes are 16 proBNP is 1062. Urinalysis with no overt infection shows some contamination and she is asymptomatic. White count is 11.6 hemoglobin 10.1 creatinine of 1 potassium 4.5. My independent interpretation of the chest x-ray is no pleural effusion mild vascular congestion Patient is not hypoxic. She has been able to get up and ambulate to the bathroom. She is not tachycardic. She received a milligram of Ativan and having improvement in her symptomology. I will write her off work tomorrow so she continue to diurese. She is asked for a few tablets of Ativan until she can get stabilized on her depression medications which I think is reasonable. I would recommend that she do daily weights. I do recommend that she follow-up with her primary care doctor History & Record Review Discussion w/independent historian: Patient and Family Additional record(s) reviewed:: Prior outpatient record, Prior ED visit and Prior labs Lab Data Attestation: I reviewed the patient's lab results. Labs: Laboratory Results - last 24 hr 07/23/24 07/23/24 07/23/24 20:52 21:49 22:56 WBC 11.6 H RBC 3.55 L Hgb 10.1 L Hct 30.7 L MCV 86.5 MCH 28.5 MCHC 32.9 RDW Std Deviation 40.1 RDW Coeff of [place] 12.6 Plt Count 343 MPV 9.5 Immature Gran % (Auto) 0.300 Neut % (Auto) 68.4 Lymph % (Auto) 21.2 [place] % (Auto) 7.5 Eos % (Auto) 1.9 Baso % (Auto) 0.7 Absolute Neuts (auto) 8.0 H Absolute Lymphs (auto) 2.47 Nucleated RBC % 0 Sodium 133 Potassium 4.5 Chloride 97 L Carbon Dioxide 22.8 Anion Gap 13 BUN 24 H Creatinine 1.00 Estim Creat Clear Calc 88.86 Est GFR (MDRD) Non-Af 64 BUN/Creatinine Ratio 24.2 H Glucose 400 H Calcium 8.8 Total Bilirubin 0.35 Direct Bilirubin 0.13 AST 27 ALT 34 Alkaline Phosphatase 109 H Troponin T High Sens 16 H Troponin T Hi Sens 2 Hr 16 H NT pro BNP II 1062 H Total Protein 6.7 Albumin 3.6 Globulin 3.1 Urine Color Straw Urine Clarity Sl. Cloudy Urine pH 6.0 Ur Specific [place] 1.015 Urine Protein 100 H Urine Glucose (UA) 1000 H Urine Ketones Negative Urine Occult Blood 25 H Urine Nitrite Negative Urine Bilirubin Negative Urine Urobilinogen Normal Ur Leukocyte Esterase 100 H Urine RBC 0-5 SEEN Urine WBC 5-10 SEEN Ur Squamous Epith Cells 5-10 SEEN Ur Transition Epith Cell 0-5 SEEN Urine Bacteria 3+ Urine Mucus 1+ Urine Yeast 1+ Radiography Diagnostic Testing: Clinical Impression(s) from Imaging Studies Chest X-Ray 07/23/24 21:25 IMPRESSION: Mild pulmonary vascular congestion. No focal consolidations. Mild card iomegaly. Reading Location: [facility] EKG Initial EKG: Attestation: I personally reviewed and interpreted this EKG as follows: Comments: Sinus rhythm with PVCs. Discharge Plan Triage Chief Complaint: Shortness of Breath ED Provider: Harjit Vee Dx/Rx/DC Orders Clinical Impression: CHF (congestive heart failure), Anxiety, Acute dyspnea Instructions: ED Heart Failure, Congestive (CHF) Prescriptions: New furosemide [Lasix] 40 mg tablet 40 mg PO BID PRN (Reason: edema) Qty: 20 0RF lorazepam [Ativan] 0.5 mg tablet 0.5 mg PO BID PRN (Reason: anxiety) Qty: 10 0RF No Action lorazepam 1 mg tablet 1 mg PO DAILY PRN (Reason: Anxiety) Patient Comments: pt confirms she doesn't regularly take med insulin glargine [Lantus Solostar U-100 Insulin] 100 unit/mL (3 mL) insulin pen 64 unit SC DAILY Patient Comments: states she does not take everyday ferrous sulfate 325 mg (65 mg iron) tablet 325 mg PO DAILY Qty: 30 11RF Patient Comments: pt confirms she doesn't regularly take med albuterol sulfate 90 mcg/actuation HFA aerosol inhaler 2 puff inhalation Q4-6H PRN (Reason: shortness of breath or wheezing) Qty: 6.7 0RF losartan 100 mg tablet 100 mg PO DAILY Qty: 90 3RF Patient Comments: pt confirms she doesn't regularly take med furosemide [Lasix] 40 mg tablet 40 mg PO DAILY PRN (Reason: edema) Patient Comments: pt confirms she doesn't regularly take med pioglitazone 30 mg tablet 30 mg PO DAILY Patient Comments: pt confirms she doesn't regularly take med glipizide 5 mg tablet extended release 24hr 5 mg PO DAILY Patient Comments: pt confirms she doesn't regularly take med atorvastatin 40 mg tablet 40 mg PO DAILY Patient Comments: pt confirms she doesn't regularly take med cyanocobalamin (vitamin B-12) 500 mcg Tablet 1,000 mcg PO BREAKFAST 30 Days Qty: 60 0RF Patient Comments: pt confirms she doesn't regularly take med venlafaxine 150 mg capsule,extended release 24hr 150 mg PO DAILY Patient Comments: pt confirms she doesn't regularly take med Primary Care Provider: Collins Mccall NP Referrals: Collins Mccall [employer], [employer] [facility] [Primary Care Provider] - Print Language: [place]
[2024-07-23 21:13] LABS: Absolute Lymphocyte Count 2.47 X10^3/uL (0.83-4.51); Basophil# 0.08 X10^3/uL; Basophil% 0.7 % (0-1); Eosinophil# 0.22 X10^3/uL; Eosinophils% 1.9 % (0-5); Hematocrit 30.7 % (37-47); Hemoglobin 10.1 g/dL (12.0-15.0); Lymphocyte # 2.47 X10^3/ul (0.83-4.51); Lymphocyte % 21.2 % (19-41); Mean Corp Hgb Conc 32.9 g/dL (32-36); Mean Corpuscular Hgb 28.5 pg (27.0-32.0); Mean Corpuscular Volume 86.5 fL (81-99); Mean Platelet Vol. 9.5 fl (6.2-12.0); Monocyte# 0.87 X10^3/uL; Monocyte% 7.5 % (0-10); NRBC Flagged by Analyzer 0 % (0-5); Neutrophil # 7.96 X10^3/uL (2.7-7.7); Neutrophil % 68.4 % (47-70); Platelet Count 343 K/mm3 (150-450); RBC Distribution Width CV 12.6 % (11.6-14.6); RBC Distribution Width SD 40.1 fl (35.1-43.9); Red Blood Count 3.55 M/mm3 (4.2-5.4); White Blood Count 11.6 K/mm3 (4.4-11.0)
[2024-07-23] MEDS: Lorazepam 2 MG/ML WCH Syringe 1 MG IV (21:19)
--- NOTE | 2024-07-23 21:25 | RAD_ITS ---
PROCEDURE: CHEST 1 VIEW (PORTABLE) 07/23/2024 REASON FOR EXAM: DYSPNEA TECHNIQUE: Frontal view of the chest. COMPARISON: 03/02/23 FINDINGS: Mild pulmonary vascular congestion. No focal consolidations. Cardiac silhouette is mildly enlarged. No pleural effusion or pneumothorax. No acute fractures. RAD/Chest 1 View (Portable) IMPRESSION: Mild pulmonary vascular congestion. No focal consolidations. Mild cardiomegal y. Reading Location: [id number]
--- OUTSIDE RECORDS SUMMARY | 2024-07-23 21:27 | XMS RPT_ITS | CCD ---
Author Organization [facility] Care Team Providers Care Broadcast Checker Name Role Phone Stefany M1 ARMOR CREWMAN, M1 ARMOR CREWMAN-Caleb Butler Primary Care Pr ovider Dr. Kirk Ford Attending Provider Dr. Harjit Vee Emergency Provider Dr. Atul Cardozo Admit Provider [phone] Atul Cardozo Other Provider Dr. Varun Guzman Other Provider Dr. Tasha Kmi Other Provider Dr. Tasha Kim Attending Provider Dr. Moustapha Saini Attending Provider Dr. Atul Cardozo Referring Provider Stefany QUISPE, BRITTANEY-Caleb Butler Referring Provi tico TALIA Garcia Attending Provider Aryan M1 ARMOR CREWMAN, BRITTANEY-Caleb Wan Attending Provider Stefany QUISPE NP-Caleb Butler Primary Care Pr ovider CHHAYA Mccall NP Referring Provi tico TALIA Garcia Attending Provider Aryan M1 ARMOR CREWMANCHHAYA Attending Provider PATO MISTRY APRN, CNP Primary Care Phys ician PATO MISTRY APRN, CNP Attending U navailable STEFANY SUPERVISOR RESPIRATORY - INDUSTRIAL ORDER CLERK, PATO Rangel Primary Care U navailable STEFANY SUPERVISOR RESPIRATORY - INDUSTRIAL ORDER CLERK, PATO Rangel Attending U navailable STEFANY SUPERVISOR RESPIRATORY - INDUSTRIAL ORDER CLERK, PATO Rangel Primary Care U navailable Stefany M1 ARMOR CREWMAN, Pato Butler Primary Care Unav ailable Stefany M1 ARMOR CREWMAN, Pato Butler Referring Unav ailable Aryan, Avi Wan Attending Unavailable [place] M1 ARMOR CREWMAN, Pato Butler Primary Care Unav ailHarjit Iverson Attending Unavailable [place] M1 ARMOR CREWMAN, Pato Butler Primary Care Unav ailable Harjit Vee Attending Unavailable Atul Cardozo Admitting Unavailable Kirk Ford Attending Unavailable Varun Guzman Consulting Unavailabl e Stefany M1 ARMOR CREWMAN, Pato Butler Primary [facility] UnaAtul Nolan Consulting Unavailable Tasha Kim Consulting Unavailable Atul Cardozo Attending Unavailable [place] M1 ARMOR CREWMAN, Pato Butler Primary Care Unav ailAtul Lyles Referring Unavailable Kirk Ford Attending Unavailable Stefany M1 ARMOR CREWMAN, Pato Butler Primary Care Unav ailable [place] M1 ARMOR CREWMAN, Pato Butler Referring Unav ailable Stefany M1 ARMOR CREWMAN, Pato Butler Attending Unav ailable Stefany M1 ARMOR CREWMAN, Pato Butler Primary Care Unav ailAtul Lyles Admitting Unavailable Thomas, Varun Consulting Unavailabl e Tasha Kim Attending Unavailable Atul Cardozo Consulting Unavailable Stefany M1 ARMOR CREWMAN, Pato Butler Primary Care UnaMagalys Drummond Attending Unavailable [place] M1 ARMOR CREWMAN, Pato Butler Primary Care Unav ailable [place] M1 ARMOR CREWMAN, Pato Butler Referring Unav ailable Monserrat Garcia Attending Unavail able [place] M1 ARMOR CREWMAN, Pato Butler Primary Care Unav ailable [place] M1 ARMOR CREWMAN, Pato Butler Referring Unav ailable Stefany M1 ARMOR CREWMAN, Pato Butler Attending Unav ailable Stefany M1 ARMOR CREWMAN, Pato Butler Primary Care Unav ailable Stefany M1 ARMOR CREWMAN, Pato Butler Referring Unav ailable [place] M1 ARMOR CREWMAN, Pato Butler Attending Unav ailable [place] M1 ARMOR CREWMAN, Pato Butler Primary Care Unav ailable Avi Baeza Referring Unavailable Avi Baeza Attending Unavailable Stefany M1 ARMOR CREWMAN, Pato Butler Primary Care Unav ailable Stefany M1 ARMOR CREWMAN, Pato Butler Referring Unav ailable Avi Baeza Attending Unavailable [place] M1 ARMOR CREWMAN, Pato Butler Primary Care Unav ailable Stefany M1 ARMOR CREWMAN, Pato Butler Referring Unav ailAvi Johansen Attending Unavailable Tasha Kim Attending Unavailable STEFANY SUPERVISOR RESPIRATORY - INDUSTRIAL ORDER CLERK, PATO Rangel Primary Care U navailable LIZA WYNN DO Attending Unavailable MICHELLE SUPERVISOR RESPIRATORY-INDUSTRIAL ORDER CLERK, KEYANNA Attending José Luis MCCALL SUPERVISOR RESPIRATORY - INDUSTRIAL ORDER CLERK, PATO Rangel Primary Care U navailable STEFANY SUPERVISOR RESPIRATORY - INDUSTRIAL ORDER CLERK, PATO Rangel Attending U navailable STEFANY SUPERVISOR RESPIRATORY - INDUSTRIAL ORDER CLERK, PATO Rangel Primary Care U navailable Allergies Allergy Classification Reported Allergen(s) Allergy Type Date of Onset Reaction(s) Facility (10 sources) Sulfamethoxazole Drug Allergy 11-18-19 19 Unknown [facility] (10 sources) Trimethoprim Drug Allergy 11-18-19 19 Unknown [facility] (10 sources) Antihistamines - Alkylamine Allergy to substance 11-18-19 19 Shortness of breath [facility] (5 sources) Sulfamethoxazole / Trimethoprim; Translations: [sulfamethoxazole-tr imethoprim] Drug Allergy Eruption of skin (disorder) [facility] (5 sources) Sulfonamide; Translations: [sulfa drugs] Drug allergy rash [facility] (1 source) Sulfamethoxazole Drug Allergy 06-22-19 [facility] Repository (1 source) Trimethoprim Drug Allergy 06-22-19 [facility] Rep[facility] (1 source) Antihistamines - Alkylamine Drug allergy (disorder) 06-22-19 [facility] Repository Medications Current Medications Medication Drug Class(es) Dates Sig (Normalized) Sig (Original) 0.5 ML tirzepatide 10 MG/ML Auto-Injector [Mounjaro] (1 source) Start: 07-12-2023 End: 10-10-2023 inject 1 dose by subcutaneous injection every week Mounjaro 5 mg/0.5 mL subcutaneous solution Dose : 5 mg =, Subcutaneous, qWeek, rotate injection sites (Not able to tolerate Trulicity or Ozempic), # 4 EA, 2 Refill(s), Pharmacy: [facility], DM type 2, goal HbA1c Start Date: 07/12/23 Stop Date: 10/10/23 Status: Ordered 0.5 ML tirzepatide 15 MG/ML Auto-Injector [Mounjaro] (4 sources) Start: 10-15-2023 inject 1 dose by subcutaneous injection every week Mounjaro 7.5 mg/0.5 mL subcutaneous solution Dose : 7.5 mg =, Subcutaneous, qWeek, rotate injection sites, # 4 EA, 3 Refill(s), Pharmacy: [facility], DM type 2, goal HbA1c Start Date: 10/15/23 Status: Ordered Quantity: 4.0 Unit: EA Repeat number: 4 Indication: Type 2 diabetes mellitus without complications Start: 10-15-2023 inject 1 dose by sub cutaneous injection every week Mounjaro 7.5 mg/0.5 mL subcutaneous solution Dose : 7.5 mg =, Subcutaneous, qWeek, rotate injection sites, # 4 EA, 3 Refill(s), Pharmacy: [facility], DM type 2, goal HbA1c Start Date: 10/15/23 Status: Ordered [id number] 200 actuat albuterol 0.09 mg/actuat metered dose inhaler (11 sources) beta2-Adrenergic Agonist Start: 03-31-2023 take 1 puff(s) by inhalation every four to six hours Albuterol Sulfate Active 2 PUFF INHALATION EVERY 4-6 HOURS 6.7 March 31, 2023 1:00am Start: 08-04-2017 End: 02-11-2023 take 1 puff(s) by inhalation every six hours Albuterol Sulfate Discontinued 2 PUFF INHALATION EVERY 6 HOURS August 04, 2017 12:00am February 11, 2023 2:54pm Start: 08-04-2017 End: 02-11-2023 take 1 puff(s) by inhalation every six hours Albuterol Sulfate Discontinued 2 PUFF INHALATION EVERY 6 HOURS August 03, 2017 11:00pm February 11, 2023 1:54pm Start: 08-04-2017 take 1 puff(s) by in halation every six hours Albuterol Sulfate Active 2 PUFF INHALATION EVERY 6 HOURS August 03, 2017 11:00pm Start: 08-04-2017 take 1 puff(s) by in halation every six hours Albuterol Sulfate Active 2 PUFF INHALATION EVERY 6 HOURS August 04, 2017 12:00am atorvastatin 40 mg oral tablet (12 sources) HMG-CoA Reductase Inhibitor Start: 07-12-2023 End: 07-06-2024 atorvastatin 40 mg oral tablet Dose : 40 mg = 1 tab(s), Oral, qDay, # 90 tab(s), 1 Refill(s), Pharmacy: [facility], 166, cm, 10/15/23 9:35:00 EDT, Height, kg, 10/15/23 9:35:00 EDT, Dosing Weight Start Date: 10/15/23 Stop Date: 04/12/24 Status: Ordered Quantity: 90.0 Unit: tab(s) Repeat number: 2 Start: 01-05-2023 take 40 mg by mouth once daily Atorvastatin Active 40 MG PO DAILY January 05, 2023 1:00am Blood Glucose Test Machine (5 sources) Start: 08-18-2021 Blood Glucose Test Machine See Instructions, 1 machine please, # 1 EA, 0 Refill(s), Pharmacy: [id number], 168, cm, 08/18/21 8:24:00 EDT, Height, 146.7, kg, 08/18/21 8:24:00 EDT, Dosing Weight Start Date: 08/18/21 Status: Ordered Quantity: 1.0 Unit: EA Repeat number: 1 Start: 08-18-2021 Blood Glucose Test Machine See Instructions, 1 machine please, # 1 EA, 0 Refill(s), Pharmacy: [id number], 168, cm, 08/18/21 8:24:00 EDT, Height, 146.7, kg, 08/18/21 8:24:00 EDT, Dosing Weight Start Date: 08/18/21 Status: Ordered citalopram 40 mg oral tablet (20 sources) Serotonin Reuptake Inhibitor Start: 01-05-2023 take 40 mg by mouth once daily Citalopram Active 40 MG PO DAILY January 05, 2023 1:00am Start: 08-04-2017 End: 01-05-2023 take 40 mg by mouth once daily Citalopram Discontinued 40 MG PO daily August 04, 2017 10:58am January 05, 2023 2:05pm Start: 08-03-2017 End: 08-04-2017 take 20 mg by mouth once daily Citalopram Discontinued 20 MG PO daily August 03, 2017 12:00am August 04, 2017 11:01am ferrous sulfate 325 mg oral tablet (1 source) Start: 03-31-2023 take 325 mg by mouth once daily Ferrous Sulfate Active 325 MG PO DAILY March 31, 2023 1:00am furosemide 20 mg oral tablet (7 sources) Loop Diuretic Start: 02-07-2024 take 1 tablet by mouth once daily as needed furosemide 20 mg oral tablet See Instructions, 1 tab(s) Oral qDay as needed for swelling or SOB for 30 day(s), # 30 tab(s), 0 Refill(s), Pharmacy: [id number], 167.5, cm, 02/07/24 13:56:00 EST, Height, kg, 02/07/24 13:56:00 EST, Dosing Weight Start Date: 02/07/24 Status: Ordered Quantity: 30.0 Unit: tab(s) Repeat number: 1 Start: 01-30-2023 End: 03-31-2023 take 1 tablet by mouth once daily Furosemide (Lasix) 40 mg tablet Active 40 MG PO DAILY March 31, 2023 12:14pm glipiZIDE er 5 mg 24 hr extended release oral tablet (12 sources) Sulfonylurea Start: 10-15-2023 glipiZIDE 5 mg oral tablet, extended release Dose : 5 mg = 1 tab(s), Oral, qDayM, # 90 tab(s), 1 Refill(s), Pharmacy: [facility], 166, cm, 10/15/23 9:35:00 EDT, Height, kg, 10/15/23 9:35:00 EDT, Dosing Weight Start Date: 10/15/23 Status: Ordered Quantity: 90.0 Unit: tab(s) Repeat number: 2 Start: 07-12-2023 glipiZIDE 5 mg oral tablet, extended release Dose : 5 mg = 1 tab(s), Oral, qDayM, # 90 tab(s), 1 Refill(s), Pharmacy: [facility], 166, cm, 07/12/23 9:47:00 EDT, Height, kg, 07/12/23 9:47:00 EDT, Dosing Weight Start Date: 07/12/23 Status: Ordered Start: 01-05-2023 take 5 mg by mouth once daily Glipizide Active 5 MG PO DAILY January 05, 2023 1:00am 3 ml insulin glargine 100 unt/ml pen injector (20 sources) Insulin Analog Start: 10-15-2023 inject 1 dose by subcutaneous injection once daily Lantus Solostar Pen 100 units/mL 3 mL Pen Dose : 64 unit(s) =, Subcutaneous, qDay, [facility], # 15 mL, 5 Refill(s), Pharmacy: [facility], 166, cm, 10/15/23 9:35:00 EDT, Height, kg, 10/15/23 9:35:00 EDT, Dosing Weight Start Date: 10/15/23 Status: Ordered Quantity: 15.0 Unit: mL Repeat number: 6 Start: 07-12-2023 inject 1 dose by sub cutaneous injection once daily Lantus Solostar Pen 100 units/mL 3 mL Pen Dose : 64 unit(s) =, Subcutaneous, qDay, [facility], # 15 mL, 5 Refill(s), Pharmacy: [facility], 166, cm, 07/12/23 9:47:00 EDT, Height, kg, 07/12/23 9:47:00 EDT, Dosing Weight Start Date: 07/12/23 Status: Ordered Start: 03-02-2023 Insulin Glargi ne (Lantus Solostar U-100 Insulin) 100 unit/mL (3 mL) insulin pen Active 64 UNIT SC DAILY March 02, 2023 11:38am Start: 01-10-2023 End: 03-02-2023 Insulin Glargine (Lantus Callie ostar U-100 Insulin) 100 unit/mL (3 mL) insulin pen Discontinued 30 UNIT SC DAILY January 10, 2023 3:27pm March 02, 2023 11:39am Start: 08-04-2017 End: 01-10-2023 Insulin Glargine (Lantus Callie ostar U-100 Insulin) 100 unit/mL (3 mL) insulin pen Discontinued 63 UNIT SC DAILY August 04, 2017 12:00am January 10, 2023 3:27pm Start: 08-04-2017 Insulin Glargi ne (Lantus Solostar U-100 Insulin) 100 unit/mL (3 mL) insulin pen Active 80 UNIT SC daily August 04, 2017 12:00am LORazepam 1 mg oral tablet (10 sources) Benzodiazepine Start: 08-04-2017 take 1 mg by mouth once daily Lorazepam Active 1 MG PO DAILY August 04, 2017 12:00am losartan potassium 100 mg oral tablet (19 sources) Angiotensin 2 Receptor Lisset Start: 10-15-2023 losartan 100 mg oral tablet Dose : 100 mg = 1 tab(s), Oral, Daily, # 90 tab(s), 1 Refill(s), Pharmacy: [facility], 166, cm, 10/15/23 9:35:00 EDT, Height, kg, 10/15/23 9:35:00 EDT, Dosing Weight Start Date: 10/15/23 Status: Ordered Quantity: 90.0 Unit: tab(s) Repeat number: 2 Start: 07-12-2023 losartan 100 m g oral tablet Dose : 100 mg = 1 tab(s), Oral, Daily, # 90 tab(s), 0 Refill(s), Pharmacy: [facility], 166, cm, 07/12/23 9:47:00 EDT, Height, kg, 07/12/23 9:47:00 EDT, Dosing Weight Start Date: 07/12/23 Status: Ordered Start: 01-10-2023 End: 03-31-2023 take 100 mg by mouth once daily Losartan Active 100 MG PO DAILY March 31, 2023 12:18pm Start: 01-05-2023 End: 01-10-2023 take 50 mg by mouth once daily Losartan Discontinued 5 0 MG PO DAILY January 05, 2023 1:00am January 10, 2023 3:20pm 24 hr metoprolol succinate 50 mg extended release oral tablet (7 sources) beta-Adrenergic Lisset Start: 01-10-2023 End: 03-31-2023 take 50 mg by mouth once daily Metoprolol Succinate Active 50 MG PO DAILY March 31, 2023 12:18pm Multivitamin preparation (5 sources) Start: 05-30-2019 take 1 tablet by mouth once daily Multivitamin Dose = 1 tab(s), Oral, Daily, 0 Refill(s) Start Date: 05/30/19 Status: Ordered Repeat number: 1 Start: 05-30-2019 take 1 tablet by fatemeh once daily Multivitamin Dose = 1 tab(s), Oral, Daily, 0 Refill(s) Start Date: 05/30/19 Status: Ordered mupirocin 0.02 mg/mg topical ointment (1 source) RNA Synthetase Inhibitor Antibacterial Start: 07-12-2023 End: 07-19-2023 mupirocin 2% topical ointment Apply 1 pelon, Topical, TID, X 7 day(s), # 15 gram(s), 0 Refill(s), Pharmacy: [facility], Ointment, 166, cm, 07/12/23 9:47:00 EDT, Height, 157.6, kg, 07/12/23 9:47:00 EDT, Dosing Weight Start Date: 07/12/23 Stop Date: 07/19/23 Status: Ordered nitrofurantoin, macrocrystals 25 mg / nitrofurantoin, monohydrate 75 mg oral capsule (1 source) Nitrofuran Antibacterial Start: 11-24-2023 End: 12-01-2023 Macrobid 100 mg oral capsule Dose : 100 mg = 1 cap(s), Oral, BID, Take with food, X 7 day(s), # 14 cap(s), 0 Refill(s), 12/01/23 11:02:00 AM EDT, Pharmacy: [id number], Acute cystitis with hematuria, 167, cm, 11/24/23 10:37:00 EDT, Height, 148.6, kg, 11/24/23 10:37:00 EDT, Dosing Weight Start Date: 11/24/23 Stop Date: 12/01/23 Status: Ordered pioglitazone 30 mg oral tablet (12 sources) Peroxisome Proliferator Receptor alpha Agonist, Peroxisome Proliferator Receptor gamma Agonist, Thiazolidinedione Start: 10-15-2023 Actos 30 mg oral tablet Dose : 30 mg = 1 tab(s), Oral, Daily, # 90 tab(s), 1 Refill(s), Pharmacy: [facility], DM type 2, goal HbA1c Start Date: 10/15/23 Status: Ordered Quantity: 90.0 Unit: tab(s) Repeat number: 2 Indication: Type 2 diabetes mellitus without complications Start: 07-12-2023 Actos 30 mg or al tablet Dose : 30 mg = 1 tab(s), Oral, Daily, # 90 tab(s), 1 Refill(s), Pharmacy: [facility], DM type 2, goal HbA1c Start Date: 07/12/23 Status: Ordered Start: 01-05-2023 take 30 mg by mouth once daily Pioglitazone Active 30 MG PO DAILY January 05, 2023 1:00am rivaroxaban 20 mg oral tablet (6 sources) Factor Xa Inhibitor Start: 02-11-2023 Xarelto 20 mg oral tablet Dose : 20 mg = 1 tab(s), Oral, qHS, with evening meal, # 30 tab(s), 0 Refill(s), 147.5 Start Date: 03/01/23 Status: Ordered traMADol hydrochloride 50 mg oral tablet (2 sources) Opioid Agonist Start: 03-03-2023 take 50 mg by mouth every six hours Tramadol Active 50 MG PO EVERY 6 HOURS March 03, 2023 1:00am 24 hr venlafaxine 150 mg extended release oral capsule (5 sources) Serotonin and Norepinephrine Reuptake Inhibitor Start: 10-15-2023 Effexor XR 150 mg oral capsule, extended release Dose : 150 mg = 1 cap(s), Oral, qDay, # 90 cap(s), 1 Refill(s), Pharmacy: [facility], [place], 166, cm, 10/15/23 9:35:00 EDT, Height, kg, 10/15/23 9:35:00 EDT, Dosing Weight Start Date: 10/15/23 Status: Ordered Quantity: 90.0 Unit: cap(s) Repeat number: 2 Indication: Anxiety disorder, unspecified Start: 07-12-2023 Effexor XR 150 mg oral capsule, extended release Dose : 150 mg = 1 cap(s), Oral, qDay, # 90 cap(s), 1 Refill(s), Pharmacy: [facility], [place], 166, cm, 07/12/23 9:47:00 EDT, Height, kg, 07/12/23 9:47:00 EDT, Dosing Weight Start Date: 07/12/23 Status: Ordered vitamin b12 0.5 mg oral tablet (6 sources) Vitamin B12 Start: 01-10-2023 take 1000 ug by mouth at breakfast Cyanocobalamin (Vitamin B-12) Active 1000 MCG PO WITH BREAKFAST 60 January 10, 2023 1:00am Vitamin B12 500 mcg oral tablet (5 sources) Start: 07-12-2023 Vitamin B12 50 0 mcg oral tablet Dose : 1,000 mcg = 2 tab(s), Oral, qAM, With breakfast, # 180 tab(s), 1 Refill(s), Pharmacy: [facility], 166, cm, 07/12/23 9:47:00 EDT, Height, kg, 07/12/23 9:47:00 EDT, Dosing Weight Start Date: 07/12/23 Status: Ordered Quantity: 180.0 Unit: tab(s) Repeat number: 2 Start: 07-12-2023 Vitamin B12 50 0 mcg oral tablet Dose : 1,000 mcg = 2 tab(s), Oral, qAM, With breakfast, # 180 tab(s), 1 Refill(s), Pharmacy: [facility], 166, cm, 07/12/23 9:47:00 EDT, Height, kg, 07/12/23 9:47:00 EDT, Dosing Weight Start Date: 07/12/23 Status: Ordered Completed/Discontinued Medications Medication Drug Class(es) Dates Sig (Normalized) Sig (Original) amoxicillin 875 mg / clavulanate 125 mg oral tablet (6 sources) Penicillin-class Antibacterial Start: 01-10-2023 End: 02-11-2023 take 1 tablet by mouth twice daily Amoxicillin-Pot Clavulanate Discontinued 1 TABLET PO TWICE A DAY 10 January 10, 2023 1:00am February 11, 2023 2:54pm apixaban 5 mg oral tablet (5 sources) Factor Xa Inhibitor Start: 01-30-2023 End: 02-11-2023 take 2 tablets by mouth twice daily, then take 1 tablet by mouth twice daily Apixaban (Eliquis) 5 mg tablet Discontinued 5 MG PO TWICE A DAY January 30, 2023 1:00am February 11, 2023 3:07pm 10 mg twice a day for the first week. Then 5 mg twice a day. Start: 01-30-2023 End: 02-11-2023 take 1 tablet by mouth twice daily Apixaban (Eliquis) 5 mg tablet Discontinued 5 MG PO TWICE A DAY 60 January 30, 2023 1:00am February 11, 2023 2:54pm aspirin 81 mg delayed release oral tablet (16 sources) Platelet Aggregation Inhibitor, Nonsteroidal Anti-inflammatory Drug Start: 01-10-2023 End: 02-11-2023 take 81 mg by mouth at breakfast Aspirin Discontinued 81 MG PO WITH BREAKFAST January 10, 2023 1:00am February 11, 2023 2:55pm Start: 08-03-2017 End: 01-05-2023 take 1 tablet by mouth once daily Aspirin (Adult Aspirin Regimen) 81 mg tablet,delayed release (DR/EC) Discontinued 81 MG PO daily August 03, 2017 12:00am January 05, 2023 2:13pm cephalexin 500 mg oral capsule (4 sources) Cephalosporin Antibacterial Start: 10-18-2023 End: 10-23-2023 cephalexin 500 mg oral capsule Dose : 500 mg = 1 cap(s), Oral, TID, # 15 cap(s), 0 Refill(s), Pharmacy: [id number], 166, cm, 10/15/23 9:35:00 EDT, Height, 153.4, kg, 10/15/23 9:35:00 EDT, Dosing Weight Start Date: 10/18/23 Stop Date: 10/23/23 Status: Ordered Start: 03-03-2023 End: 03-31-2023 take 500 mg by mouth every six hours Cephalexin Discontinued 500 MG PO EVERY 6 HOURS March 03, 2023 1:00am March 31, 2023 11:32am cholecalciferol 0.125 mg oral capsule (6 sources) Vitamin D Start: 01-10-2023 End: 03-31-2023 take 125 ug by mouth once daily Cholecalciferol (Vitamin D3) Discontinued 125 MCG PO DAILY January 10, 2023 1:00am March 31, 2023 11:32am clopidogrel 75 mg oral tablet (10 sources) [id number] Platelet Inhibitor Start: 08-30-2017 End: 01-05-2023 take 1 tablet by mouth once daily Clopidogrel (Plavix) 75 mg tablet Discontinued 75 MG PO daily August 30, 2017 12:00am January 05, 2023 2:14pm fluconazole 150 mg oral tablet (12 sources) Azole Antifungal Start: 03-03-2023 End: 03-31-2023 take 150 mg by mouth once daily Fluconazole Discontinued 150 MG PO DAILY March 03, 2023 1:00am March 31, 2023 11:32am Take a completion of your antibiotic course. Start: 08-03-2017 End: 08-03-2017 take 1 tablet by mouth once daily Fluconazole (Diflucan) 100 mg tablet Discontinued 100 MG PO daily August 03, 2017 12:00am August 03, 2017 12:37pm 60 actuat fluticasone propionate 0.05 mg/actuat dry powder inhaler (10 sources) Corticosteroid Start: 08-04-2017 End: 01-05-2023 take 50 ug by inhalation once daily Fluticasone Propionate (Flovent Diskus) 50 mcg/actuation blister with device Discontinued 1 INH INHALATION daily August 04, 2017 12:00am January 05, 2023 2:14pm 3 ml insulin aspart, human 100 unt/ml pen injector (10 sources) Insulin Analog Start: 08-04-2017 End: 01-05-2023 Insulin Aspart U-100 (Novolog Flexpen U-100 Insulin) 100 unit/mL insulin pen Discontinued 26 UNIT SC THREE TIMES A DAY August 04, 2017 12:00am January 05, 2023 2:16pm insulin, regular, human 100 unt/ml injectable solution (10 sources) Insulin Start: 08-03-2017 End: 08-04-2017 Insulin Regular Human (Humulin R Regular U-100 Insuln) 100 unit/mL solution Discontinued 10 UNIT SC EVERY MORNING August 03, 2017 12:00am August 04, 2017 10:59am lisinopril 40 mg oral tablet (10 sources) Angiotensin Converting Enzyme Inhibitor Start: 08-03-2017 End: 01-05-2023 take 40 mg by mouth once daily Lisinopril Discontinued 40 MG PO DAILY August 03, 2017 12:00am January 05, 2023 2:46pm meclizine hydrochloride 12.5 mg oral tablet (10 sources) Antiemetic Start: 08-03-2017 End: 08-03-2017 take 12.5 mg by mouth three times daily Meclizine Discontinued 12.5 MG PO THREE TIMES A DAY August 03, 2017 12:00am August 03, 2017 12:37pm Problems Active Problems Problem Classification Problem Date Documented Da te Episodic/Chronic Acute and unspecified renal failure (8 sources) Injury of kidney; Translations: [Acute kidney failure, unspecified] 09-27-2022 Episodic Acute myocardial infarction (20 sources) Myocardial infarction; Translations: [Non-ST elevation (NSTEMI) myocardial infarction] Onset: 01-15-2023 01-05-2023 Chronic Administrative/social admission (1 source) Counseling procedure with explicit context; Translations: [Dietary counseling and surveillance] Episodic Anxiety disorders (5 sources) Anxiety 11-24-2021 Chronic Cardiac dysrhythmias (20 sources) Paroxysmal atrial fibrillation; Translations: [Paroxysmal atrial fibrillation] Onset: 02-12-2023 08-03-2017 Chronic Chronic kidney disease (5 sources) Chronic kidney disease stage 3 10-20-2022 Chronic Chronic kidney disease (2 sources) Chronic kidney disease; Translations: [Chronic kidney disease, stage 3 unspecified] Onset: 07-12-2023 Coronary atherosclerosis and other heart disease (18 sources) Coronary atherosclerosis; Translations: [Atherosclerotic heart disease of [place] coronary artery without angina pectoris] Onset: 01-05-2023 01-07-2023 Chronic Deficiency and other anemia (6 sources) Anemia; Translations: [Anemia, unspecified] 03-31-2023 Episodic Diabetes mellitus with complications (1 source) Type 2 diabetes mellitus with diabetic chronic kidney disease; Translations: [Type 2 diabetes mellitus with diabetic chronic kidney disease] Onset: 10-13-2023 Chronic Diabetes mellitus without complication (15 sources) Diabetes mellitus; Translations: [Type 2 diabetes mellitus] Onset: 07-12-2023 10-20-2022 Chronic Diabetes mellitus without complication (8 sources) Acute hyperglycemia; Translations: [Hyperglycemia, unspecified] 09-27-2022 Episodic Disorders of lipid metabolism (5 sources) Hyperlipidemia 10-20-2022 Chronic Essential hypertension (20 sources) Essential hypertension; Translations: [Essential (primary) hypertension] Onset: 01-15-2023 08-08-2018 Chronic Fluid and electrolyte disorders (8 sources) Dehydration; Translations: [Dehydration] 09-27-2022 Episodic Headache; including migraine (20 sources) Headache; Translations: [Headache] 09-28-2018 Episodic Heart valve disorders (5 sources) Tricuspid valve regurgitation 03-23-2022 Chronic Comment on above: 08/25/2017 Echocardi ogram Results: IMPRESSION: 1. Normal LV size. 2. Moderate concentric left ventricular hypertrophy. 3. Left ventricular systolic function is normal. 4. The estimated ejection fraction is 60%. 5. Normal diastology for age. 6. Mild tricuspid valve insufficiency Nonmalignant breast conditions (1 source) Disorder of breast 07-12-2023 Episodic Nutritional deficiencies (5 sources) Vitamin D deficiency 11-18-2021 Chronic Other aftercare (1 source) Long-term current use of insulin; Translations: [detention (current) use of insulin] Episodic Other aftercare (1 source) Drug monitoring done; Translations: [Encounter for therapeutic drug level monitoring] Episodic Other eye disorders (8 sources) Vitreous floaters; Translations: [Other vitreous opacities, left eye] 09-27-2022 Chronic Other lower respiratory disease (7 sources) Dyspnea; Translations: [Dyspnea, unspecified] 01-05-2023 Episodic Other lower respiratory disease (6 sources) Dyspnea, unspecified; Translations: [Other respiratory abnormalities] 01-05-2023 Episodic Other lower respiratory disease (7 sources) Dyspnea on exertion; Translations: [Other forms of dyspnea] 03-02-2023 Episodic Other nutritional; endocrine; and metabolic disorders (15 sources) Morbid obesity; Translations: [Morbid (severe) obesity due to excess calories] 08-03-2017 Chronic Other nutritional; endocrine; and metabolic disorders (6 sources) Morbid (severe) obesity due to excess calories; Translations: [Morbid obesity] 01-05-2023 Chronic Other nutritional; endocrine; and metabolic disorders (6 sources) Body mass index 40+ - severely obese; Translations: [Body mass index (BMI) 50.0-59.9, adult] 07-12-2023 Chronic Other screening for suspected conditions (not mental disorders or infectious disease) (20 sources) Cardiovascular stress test abnormal; Translations: [Abnormal result of other cardiovascular function study] 08-08-2018 Episodic Zuri-; endo-; and myocarditis; cardiomyopathy (except that caused by tuberculosis or sexually transmitted disease) (20 sources) Pericardial effusion; Translations: [Pericardial effusion (noninflammatory)] Onset: 02-08-2014 08-03-2017 Episodic Pleurisy; pneumothorax; pulmonary collapse (10 sources) Bilateral pleural effusion; Translations: [Pleural effusion, not elsewhere classified] 01-05-2023 Episodic Pulmonary heart disease (6 sources) Pulmonary hypertension; Translations: [Pulmonary hypertension, unspecified] Onset: 02-07-2024 03-23-2022 Chronic Comment on above: 08/25/2017 Echocardi ogram Results: IMPRESSION: 1. Normal LV size. 2. Moderate concentric left ventricular hypertrophy. 3. Left ventricular systolic function is normal. 4. The estimated ejection fraction is 60%. 5. Normal diastology for age. 6. Mild tricuspid valve insufficiency Residual codes; unclassified (5 sources) Obstructive sleep apnea syndrome 08-18-2021 Chronic Residual codes; unclassified (3 sources) Bilateral lower limb edema; Translations: [Localized edema] 01-30-2023 Episodic Residual codes; unclassified (5 sources) Did not attend 02-25-2023 Episodic Comment on above: 02/25/2023 01/19/2023 patient f tay to follow-up for scheduled appointment 10/12/2023 Residual codes; unclassified (5 sources) Forgetful 11-18-2021 Episodic Residual codes; unclassified (5 sources) Increased body mass index 07-12-2023 Episodic Residual codes; unclassified (1 source) Noncompliance with medication regimen; Translations: [Patient's intentional underdosing of medication regimen for other reason] Episodic Skin and subcutaneous tissue infections (2 sources) Cellulitis; Translations: [Cellulitis, unspecified] 03-03-2023 Episodic Spondylosis; intervertebral disc disorders; other back problems (4 sources) Backache; Translations: [Dorsalgia, unspecified] 01-24-2023 Episodic Sprains and strains (20 sources) Low back strain; Translations: [Strain of muscle, fascia and tendon of lower back, initial encounter] 10-06-2018 Episodic Superficial injury; contusion (10 sources) Contusion of lower back; Translations: [Contusion of lower back and pelvis, initial encounter] 10-06-2018 Episodic Syncope (8 sources) Near syncope; Translations: [Syncope and collapse] 09-27-2022 Episodic Unclassified (5 sources) Non-smoker 11-18-2021 Unclassified (9 sources) Patient encounter status 07-12-2023 Past or Other Problems Problem Classification Problem Date Documented Da te Episodic/Chronic Cardiac dysrhythmias (1 source) Palpitations; Translations: [Palpitations] Onset: 06-22-2023 Episodic Deficiency and other anemia (2 sources) Anemia, unspecified; Translations: [Anemia, unspecified] Onset: 07-08-2023 03-31-2023 Episodic Genitourinary symptoms and ill-defined conditions (2 sources) Dysuria; Translations: [Dysuria] Onset: 10-15-2023 Episodic Malaise and fatigue (1 source) Other fatigue; Translations: [Other fatigue] Onset: 07-08-2023 Episodic Nonspecific chest pain (20 sources) Chest pain; Translations: [Chest pain, unspecified] Onset: 06-22-2023 08-08-2018 Episodic Other connective tissue disease (1 source) Other specified soft tissue disorders; Translations: [Other specified soft tissue disorders] Onset: 02-07-2024 Episodic Other lower respiratory disease (4 sources) Other forms of dyspnea; Translations: [Other respiratory abnormalities] Onset: 03-03-2023 03-02-2023 Episodic Other lower respiratory disease (1 source) Shortness of breath; Translations: [Shortness of breath] Onset: 02-07-2024 Episodic Pneumonia (except that caused by tuberculosis or sexually transmitted disease) (14 sources) Community acquired pneumonia; Translations: [Pneumonia, unspecified organism] Onset: 02-12-2023 01-05-2023 Episodic Residual codes; unclassified (1 source) Edema, unspecified; Translations: [Edema, unspecified] Onset: 06-22-2023 Episodic Respiratory failure; insufficiency; arrest (adult) (15 sources) Acute respiratory failure; Translations: [Acute respiratory failure with hypoxia] Onset: 01-15-2023 01-05-2023 Episodic Urinary tract infections (2 sources) Acute cystitis with hematuria; Translations: [Acute cystitis with hematuria] Onset: 11-24-2023 Episodic Results Test Name Value Interpretation Reference Range Facility XR CHEST 2 VIEWSon XR CHEST 2 VIEWS ORIGINAL EXAMINATION: TWO XRAY VIEWS OF THE CHEST02/07/2024 3:03 pm XR Chest, two views COMPARISON: 12/11/2014 HISTORY: ORDERING SYSTEM PROVIDED HISTORY: Reason for Exam: CHF vs PNA, patient reports shortness of breath FINDINGS: The lungs show no suspicious nodule, infiltrate, consolidation or mass. Heart size and mediastinal contours are stable accounting for differences in projection and patient position. No pneumothorax, pleural fluid, or vascular congestion is seen. The bones show no acute process. IMPRESSION: No acute cardio pulmonary process. Interpreted by: Jairon Pham MD Preliminary Report By: Jairon Pham MD Electronically signed By Jairon Pham MD Dictated Date: 02/09/2024 11:39:14 AM Prelim Date: 02/09/2024 11:39:53 AM Sign Date: 02/09/2024 11:39:53 AM Ordering Provider: LIZA WYNN [facility] .GFRon 02-07-2024 GFR 67 ml/min/1.73sqm [facility] Comment on above: Result Comment: GFR Population mean for , Non- Americans Ages 20-29 = 116 mL/min/1.73 sq.m. Ages 30-39 = 107 mL/min/1.73 sq.m. Ages 40-49 = 99 mL/min/1.73 sq.m. Ages 50-59 = 93 mL/min/1.73 sq.m. Ages 60-69 = 85 mL/min/1.73 sq.m. Ages 70+ = 75 mL/min/1.73 sq.m. Chronic Kidney Disease: Less than 60 mL/min/1.73 square meters End Stage Renal Disease: Less than 15 mL/min/1.73 square meters Performed By: #### G FR, BMP, MG #### [address] [address] GFR Non- 55 ml/min/1.73sqm [facility] Comment on above: Result Comment: GFR Population mean for , Non- Americans Ages 20-29 = 116 mL/min/1.73 sq.m. Ages 30-39 = 107 mL/min/1.73 sq.m. Ages 40-49 = 99 mL/min/1.73 sq.m. Ages 50-59 = 93 mL/min/1.73 sq.m. Ages 60-69 = 85 mL/min/1.73 sq.m. Ages 70+ = 75 mL/min/1.73 sq.m. Chronic Kidney Disease: Less than 60 mL/min/1.73 square meters End Stage Renal Disease: Less than 15 mL/min/1.73 square meters Performed By: #### G FR, BMP, MG #### [address] [address] BMPon 02-07-2024 BUN/Creatinine Ratio 33 ratio High 7-27 [facility] Comment on above: Performed By: #### G , BMP, MG #### [address] [address] Calcium [Mass/Vol] 9.1 mg/dL Normal 8.4-10.2 [facility] Comment on above: Performed By: #### G , BMP, MG #### [address] [address] Chloride [Moles/Vol] 107 mmol/L Normal 98-107 [facility] Comment on above: Performed By: #### G FR BMP, MG #### [address] [address] CO2 [Moles/Vol] 28 mmol/L Normal 23-31 [facility] Comment on above: Performed By: #### G FR BMP, MG #### [address] [address] Creatinine [Mass/Vol] 1.02 mg/dL Normal 0.55-1.02 [facility] Comment on above: Result Comment: Test ing performed on Siemens Dimension EXL analyzer using a modified kinetic Nichelle technique. Performed By: #### G FR BMP, MG #### [address] [address] Electrolyte Balance 6.0 mEq/L Normal 4.0-15.0 [facility] Comment on above: Performed By: #### G FR, BMP, MG #### [address] [address] Glucose [Mass/Vol] 218 mg/dL High 80-115 [facility] Comment on above: Performed By: #### G FR, BMP, MG #### [address] [address] Potassium [Moles/Vol] 5.0 mmol/L Normal 3.5-5.1 [facility] Comment on above: Performed By: #### G FR, BMP, MG #### [facility] [address] [place], [place] [address] Sodium [Moles/Vol] 141 mmol/L Normal 136-145 [facility] Comment on above: Performed By: #### G FR, BMP, MG #### [facility] [address] [place], [place] [address] Urea nitrogen [Mass/Vol] 34 mg/dL High 7-18 [facility] Comment on above: Performed By: #### G FR, BMP, MG #### [facility] [address] [place], [place] [address] LABORATORYOrdered By: SYSTEM SYSTEM on 02-07-2024 Calcium [Mass/Vol] 9.1 mg/dL Normal 8.4 - 10. 2 mg/dL AO ADM SS Chloride [Moles/Vol] 107 mmol/L Normal 98 - 10 7 mmol/L AO ADM SS CO2 [Moles/Vol] 28 mmol/L Normal 23 - 31 mmol/L AO ADM SS Creatinine [Mass/Vol] 1.02 mg/dL Normal 0.55 - 1.02 mg/dL AO ADM SS Comment on above: Interpretive Data: T esting performed on Siemens Dimension EXL analyzer using a modified kinetic Nichelle technique. Electrolyte Balance 6.0 mEq/L Normal 4.0 - 15 .0 mEq/L AO ADM SS GFR/1.73 sq M.predicted among blacks MDRD (S/P/Bld) [Vol rate/Area] 67 ml/min/1.73sqm Invalid Interpretation Code AO Chemistry S Comment on above: Interpretive Data: GFR Population mean for , Non- Americans Ages 20-29 = 116 mL/min/1.73 sq.m. Ages 30-39 = 107 mL/min/1.73 sq.m. Ages 40-49 = 99 mL/min/1.73 sq.m. Ages 50-59 = 93 mL/min/1.73 sq.m. Ages 60-69 = 85 mL/min/1.73 sq.m. Ages 70+ = 75 mL/min/1.73 sq.m. Chronic Kidney Disease: Less than 60 mL/min/1.73 square meters End Stage Renal Disease: Less than 15 mL/min/1.73 square meters GFR/1.73 sq M.predicted among non-blacks MDRD (S/P/Bld) [Vol rate/Area] 55 ml/min/1.73sqm Invalid Interpretation Code AO Chemistry S Comment on above: Interpretive Data: GFR Population mean for , Non- Americans Ages 20-29 = 116 mL/min/1.73 sq.m. Ages 30-39 = 107 mL/min/1.73 sq.m. Ages 40-49 = 99 mL/min/1.73 sq.m. Ages 50-59 = 93 mL/min/1.73 sq.m. Ages 60-69 = 85 mL/min/1.73 sq.m. Ages 70+ = 75 mL/min/1.73 sq.m. Chronic Kidney Disease: Less than 60 mL/min/1.73 square meters End Stage Renal Disease: Less than 15 mL/min/1.73 square meters Glucose [Mass/Vol] 218 mg/dL High 80 - 115 mg/dL AO ADM SS Magnesium [Mass/Vol] 1.4 mg/dL Low 1.8 - 2 .4 mg/dL AO ADM SS Natriuretic peptide.B prohormone N-Terminal [Mass/Vol] 1408 pg/mL High 0 - 125 pg/mL AO ADM SS Comment on above: Interpretive Data: N T-proBNP results of less than 300 pg/mL effectively rules out acute congestive heart failure with 99% negative predictive value. Potassium [Moles/Vol] 5.0 mmol/L Normal 3.5 - 5.1 mmol/L AO ADM SS Sodium [Moles/Vol] 141 mmol/L Normal 136 - 145 mmol/L AO ADM SS Urea nitrogen [Mass/Vol] 34 mg/dL High 7 - 18 mg/dL AO ADM SS Urea nitrogen/Creatinine [Mass ratio] 33 ratio High 7 - 27 ratio AO ADM SS MGon 02-07-2024 Magnesium [Mass/Vol] 1.4 mg/dL Low 1.8-2.4 [facility] Comment on above: Performed By: #### G FR, BMP, MG #### [address] [address] PBNPon 02-07-2024 Natriuretic peptide B (Bld) [Mass/Vol] 1408 pg/mL High 0-125 [facility] Comment on above: Result Comment: NT-p roBNP results of less than 300 pg/mL effectively rules out acute congestive heart failure with 99% negative predictive value. Performed By: #### P BNP #### [address] [address] ERTAPENEM:SUSC:PT:ISOLATE:OR DQN:MICon 11-24-2023 Ertapenem LUCIANO [Susc] >100,000 cfu/ml Escherichia coli [facility] Work Phone: Ertapenem LUCIANO [Susc]on 11-23 Escherichia coli Escherichia coli [facility] Work Phone: LABORATORYOrdered By: Marilee Garrison on 10-15-2023 Albumin DL <= 20 mg/L (U) [Mass/Vol] 7295 mcg/dL Invalid Interpretation Code AO ADM SS Albumin/Creatinine DL <= 20 mg/L (U) [Mass ratio] 81 mcg/mg High 0 - 30 mcg/mg AO ADM SS Creatinine (U) [Mass/Vol] 90.6 mg/dL Normal 28.0 - 117.0 mg/dL AO ADM SS MALBRon 10-15-2023 U Creatinine 90.6 mg/dL Normal 28.0-117.0 [facility] Comment on above: Performed By: #### M ALBR #### [address] [address] U Microalb 7295 mcg/dL Normal [facility] Comment on above: Performed By: #### M ALBR #### [address] [address] U Ratio Alb/Cre 81 mcg/mg High 0-30 [facility] Comment on above: Performed By: #### M ALBR #### [address] [address] TOBRAMYCIN:SUSC:PT:ISOLATE:O RDQN:MICon 10-15-2023 Tobramycin LUCIANO [Susc] 50,000 - 100,000 cfu/ml Klebsiella variicola [facility] Work Phone: Tobramycin LUCIANO [Susc]on Klebsiella variicola Klebsiella variicola [facility] Work Phone: CBC-Complete Blood Cnt No Di ffon 10-05-2023 Erythrocyte distribution width (RBC) [Ratio] 13.6 % Normal 11.6-14.6 [facility] Comment on above: Performed By: #### L 506.1000, L501.9985, L500.4050, L509.1000, L100.0500, L500.4100 ####[facility] [address] [place], [address] Hematocrit (Bld) [Volume fraction] 33.2 % Low 37-47 [facility] Comment on above: Performed By: #### L 506.1000, L501.9985, L500.4050, L509.1000, L100.0500, L500.4100 ####[facility] [address] [place], [address] Hemoglobin (Bld) [Mass/Vol] 10.4 g/dL Low 12.0-15.0 [facility] Comment on above: Performed By: #### L 506.1000, L501.9985, L500.4050, L509.1000, L100.0500, L500.4100 ####[facility] [address] [place], [address] MCH (RBC) [Entitic mass] 27.8 pg Normal 27.0-32.0 [facility] Comment on above: Performed By: #### L 506.1000, L501.9985, L500.4050, L509.1000, L100.0500, L500.4100 ####[facility] [address] [place], [address] MCHC (RBC) [Mass/Vol] 31.3 g/dL Low 32-36 [facility] Comment on above: Performed By: #### L 506.1000, L501.9985, L500.4050, L509.1000, L100.0500, L500.4100 ####[facility] [address] [place], [address] MCV (RBC) [Entitic vol] 88.8 fL Normal 81-99 [facility] Comment on above: Performed By: #### L 506.1000, L501.9985, L500.4050, L509.1000, L100.0500, L500.4100 ####[facility] [address] [place], [address] Platelet mean volume (Bld) [Entitic vol] 9.0 fL Normal 6.2-12.0 [facility] Comment on above: Performed By: #### L 506.1000, L501.9985, L500.4050, L509.1000, L100.0500, L500.4100 ####[facility] [address] [place], [address] Platelets (Bld) [#/Vol] 357 10*3/uL Normal 150-450 [facility] Comment on above: Performed By: #### L 506.1000, L501.9985, L500.4050, L509.1000, L100.0500, L500.4100 ####[facility] [address] [place], [address] RBC (Bld) [#/Vol] 3.74 10*6/uL Low 4.2-5.4 [facility] Comment on above: Performed By: #### L 506.1000, L501.9985, L500.4050, L509.1000, L100.0500, L500.4100 ####[facility] [address] [place], [address] RDW SD 43.8 fl Normal 35.1-43.9 [facility] Comment on above: Performed By: #### L 506.1000, L501.9985, L500.4050, L509.1000, L100.0500, L500.4100 ####[facility] [address] [place], [address] WBC (Bld) [#/Vol] 11.5 10*3/uL High 4.4-11.0 [facility] Comment on above: Performed By: #### L 506.1000, L501.9985, L500.4050, L509.1000, L100.0500, L500.4100 ####[facility] [address] [place], [address] Comprehensive Metabolic Prof [facility] 10-05-2023 Albumin [Mass/Vol] 2.9 g/dL Low 3.2-5.0 [facility] Comment on above: Performed By: #### L 506.1000, L501.9985, L500.4050, L509.1000, L100.0500, L500.4100 ####[facility] [address] [place], [address] Albumin/Globulin [Mass ratio] 0.7 {ratio} Low 0.9-2.4 [facility] Comment on above: Performed By: #### L 506.1000, L501.9985, L500.4050, L509.1000, L100.0500, L500.4100 ####[facility] [address] [place], [address] ALK P 88 U/L Normal 45-117 [facility] Comment on above: Performed By: #### L 506.1000, L501.9985, L500.4050, L509.1000, L100.0500, L500.4100 ####[facility] [address] [place], [address] ALT [Catalytic activity/Vol] 19 U/L Normal 13-56 [facility] Comment on above: Performed By: #### L 506.1000, L501.9985, L500.4050, L509.1000, L100.0500, L500.4100 ####[facility] [address] [place], [address] AST [Catalytic activity/Vol] 15 U/L Normal 15-37 [facility] Comment on above: Performed By: #### L 506.1000, L501.9985, L500.4050, L509.1000, L100.0500, L500.4100 ####[facility] [address] [place], [address] Bilirubin [Mass/Vol] 0.30 mg/dL Normal 0.20-1.00 [facility] Comment on above: Result Comment: For patients on eltrombopag therapy, use of Dimension [place] TBIL is not recommended. Performed By: #### L 506.1000, L501.9985, L500.4050, L509.1000, L100.0500, L500.4100 ####[facility] [address] [place], [address] BUN/CRE 28.6 RATIO High 10-20 [facility] Comment on above: Performed By: #### L 506.1000, L501.9985, L500.4050, L509.1000, L100.0500, L500.4100 ####[facility] [address] [place], [address] CA,Total 9.0 mg/dL Normal 8.5-10.1 [facility] Comment on above: Performed By: #### L 506.1000, L501.9985, L500.4050, L509.1000, L100.0500, L500.4100 ####[facility] [address] [place], [address] Chloride [Moles/Vol] 104 mmol/L Normal 98-107 [facility] Comment on above: Performed By: #### L 506.1000, L501.9985, L500.4050, L509.1000, L100.0500, L500.4100 ####[facility] [address] [place], [address] CO2 [Moles/Vol] 26.0 mmol/L Normal 21.0-32.0 [facility] Comment on above: Performed By: #### L 506.1000, L501.9985, L500.4050, L509.1000, L100.0500, L500.4100 ####[facility] [address] [place], [address] Creatinine [Mass/Vol] 0.94 mg/dL Normal 0.55-1.02 [facility] Comment on above: Result Comment: The validity of the calculated GFR GFRAA in patients over70 years has not been determined. Clinical correlation isessential. Performed By: #### L 506.1000, L501.9985, L500.4050, L509.1000, L100.0500, L500.4100 ####[facility] [address] [place], [address] EST GFR - AA 78 mL/min Normal >60 [facility] Comment on above: Result Comment: Afri can Hungarian GFR Calc Performed By: #### L 506.1000, L501.9985, L500.4050, L509.1000, L100.0500, L500.4100 ####[facility] [address] [place], [address] GAP 6 Normal 5-15 [facility] Comment on above: Performed By: #### L 506.1000, L501.9985, L500.4050, L509.1000, L100.0500, L500.4100 ####[facility] [address] [place], [address] GFR/1.73 sq M.predicted among non-blacks MDRD (S/P/Bld) [Vol rate/Area] 64 mL/min/{1.73_m2} Normal >60 [facility] Comment on above: Result Comment: Non- GFR Calc Performed By: #### L 506.1000, L501.9985, L500.4050, L509.1000, L100.0500, L500.4100 ####[facility] [address] [place], [address] Globulin (S) [Mass/Vol] 4.0 g/dL Normal 2.2-4.2 [facility] Comment on above: Performed By: #### L 506.1000, L501.9985, L500.4050, L509.1000, L100.0500, L500.4100 ####[facility] [address] [place], [address] Glucose [Mass/Vol] 123 mg/dL High 74-106 [facility] Comment on above: Result Comment: Fast ing Glucose result from 100 to 125 mg/dLsuggests IMPAIRED HOMEOSTASIS per A.D.A. criteria. Performed By: #### L 506.1000, L501.9985, L500.4050, L509.1000, L100.0500, L500.4100 ####[facility] [address] [place], [address] Potassium [Moles/Vol] 4.6 mmol/L Normal 3.5-5.1 [facility] Comment on above: Performed By: #### L 506.1000, L501.9985, L500.4050, L509.1000, L100.0500, L500.4100 ####[facility] [address] [place], [address] Sodium [Moles/Vol] 136 mmol/L Normal 136-145 [facility] Comment on above: Performed By: #### L 506.1000, L501.9985, L500.4050, L509.1000, L100.0500, L500.4100 ####[facility] [address] [place], [address] T PROT 6.9 g/dL Normal 6.4-8.2 [facility] Comment on above: Performed By: #### L 506.1000, L501.9985, L500.4050, L509.1000, L100.0500, L500.4100 ####[facility] [address] [place], [address] Urea nitrogen [Mass/Vol] 27 mg/dL High 7-18 [facility] [place] Comment on above: Performed By: #### L 506.1000, L501.9985, L500.4050, L509.1000, L100.0500, L500.4100 ####[facility] [place] [address] [place], [address] Hemoglobin A1con 10-05-2023 HbA1c (Bld) [Mass fraction] 6.0 % High 3.8-5.6 [facility] [place] Comment on above: Result Comment: Norm al < 5.7 % Prediabetic 5.7 - 6.4 % Diabetic >or= 6.5 % Please note range changes. Performed By: #### L 506.1000, L501.9985, L500.4050, L509.1000, L100.0500, L500.4100 ####[facility] [place] [address] [place], [address] Lipid Profileon 10-05-2023 Cholesterol [Mass/Vol] 126 mg/dL Normal 200 [facility] Comment on above: Result Comment: <200 mg/dL Desirable 200-240 mg/dL Borderline >240 mg/dL High Risk Performed By: #### L 506.1000, L501.9985, L500.4050, L509.1000, L100.0500, L500.4100 ####[facility] [place] [address] [place], [address] Cholesterol in HDL [Mass/Vol] 44 mg/dL Normal [facility] [place] Comment on above: Result Comment: The drugs N-Acetylcysteine and Metamizole may falselydepress this assay. Reference Range HDL <40 mg/dL Low HDL Cholesterol HDL >or= 60 mg/dL High HDL Cholesterol Performed By: #### L 506.1000, L501.9985, L500.4050, L509.1000, L100.0500, L500.4100 ####[facility] [place] [address] [place], [address] Cholesterol in LDL [Mass/Vol] 67 mg/dL Normal 0-130 [facility] [place] Comment on above: Performed By: #### L 506.1000, L501.9985, L500.4050, L509.1000, L100.0500, L500.4100 ####[facility] [place] [address] [place], [address] Cholesterol in VLDL [Mass/Vol] 15 mg/dL Normal 5-40 [facility] [place] Comment on above: Performed By: #### L 506.1000, L501.9985, L500.4050, L509.1000, L100.0500, L500.4100 ####[facility] [place] [address] [place], [address] Triglyceride [Mass/Vol] 77 mg/dL Normal [facility] Comment on above: Result Comment: The drugs N-Acetylcysteine and Metamizole may falselydepress this assay.Serum Triglycerides Reference Interval Normal <150 mg/dL Borderline high 150 - 199 mg/dL High 200 - 499 mg/dL Very High > or = 500 mg/dL Performed By: #### L 506.1000, L501.9985, L500.4050, L509.1000, L100.0500, L500.4100 ####[facility] [place] [address] [place], [address] PTHINon 10-05-2023 PTH 62.0 pg/mL Normal 18.4-80.1 [facility] [place] Comment on above: Performed By: #### L 506.1000, L501.9985, L500.4050, L509.1000, L100.0500, L500.4100 ####[facility] [place] [address] [place], [place], [id number] Vitamin D,25 Hydroxyon 10-04 Vitamin D 25-OH 25.1 ng/mL Normal [facility] [place] Comment on above: Result Comment: Michelle min D 25(OH) Status Range Deficiency <20 ng/mL (50nmol/L) Insufficiency 20 - 30 ng/mL (50 - 75 nmol/L) Sufficiency 30 - 100 ng/mL (75 - 250 nmol/L) Toxicity >100 ng/mL (>250 nmol/L) Performed By: #### L 506.1000, L501.9985, L500.4050, L509.1000, L100.0500, L500.4100 ####[facility] [place] [address] [place], [place], [id number] MA MAMMOGRAM DIAGNOSTIC BILA TERAL W/TOMOon 07-15-2023 MA MAMMOGRAM DIAGNOSTIC BILATERAL W/YUSUF ORIGINAL FROM: [address] [address] PROCEDURE FOR: SHADE IBARRA [address] [place] [address] Home: PID#: [id number] Exam#: [id number] : 1965 Age: 58 TO: PATO MCCALL [employer]PER[employer] [place] [address] Fax: NO FAX EXAMINATION: DIAGNOSTIC BILATERAL MAMMOGRAM WITH TOMOSYNTHESIS, 07/15/2023 2:04 pm TECHNIQUE: Tomosynthesis was performed as part of the diagnostic bilateral mammogram. 2D standard and 3D tomosynthesis combination imaging performed. COMPARISON: 05/22/2015 HISTORY: L4 abnormality right breast. FINDINGS: BREAST DENSITY: Predominantly Fatty There is no abnormality in the right breast correspond to the area of palpable clinical concern. There are no significant masses or calcifications. IMPRESSION: No mammographic evidence of malignancy. No abnormality at the site of palpable clinical concern, recommend clinical follow-up. Harley Millan risk calculations, generated with the history provided, report this patient's 10 year risk and lifetime risk for developing breast cancer at 4.2% and 10.4%, respectively. Based on this assessment tool, if the patient's calculated lifetime risk is below 20%, then the patient is considered at average risk for developing breast cancer. If the patient's calculated lifetime risk is at or above 20%, then the patient is considered high risk for developing breast cancer and may be a candidate for supplemental breast MRI screening in addition to annual mammographic screening per the [employer]. BIRADS: MAMMOGRAM BI-RADS: 1: Negative RECALL: 1 year screening RECALL TYPE: mammo LETTER SENT: Normal BI-RADS 1 and 2 Interpreted by: Shawn Jackson MD Preliminary Report By: Shawn Jackson MD Electronically signed By Shawn Jackson MD Dictated Date: 07/15/2023 3:06:14 PM Prelim Date: 07/15/2023 3:10:14 PM Sign Date: 07/15/2023 3:10:14 PM Ordering Provider: PATO MCCALL CLINICAL: SKIN LESION RIGHT BREAST. 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 Chloride [Moles/Vol] 105 mmol/L 98-107 [facility] Glucose [Mass/Vol] 149 mg/dL 74-106 [facility] Comment on above: Fasting Glucose resu lt greater than or equal to 126 mg/dL suggests DIABETES MELLITUS per A.D.A. criteria. Hemoglobin (Bld) [Mass/Vol] 10.9 g/dL 12.0-15.0 [facility] [place] Potassium [Moles/Vol] 5.2 mmol/L 3.5-5.1 [facility] Protein [Mass/Vol] 7.5 g/dL 6.4-8.2 [facility] Sodium [Moles/Vol] 135 mmol/L 136-145 [facility] WBC (Bld) [#/Vol] 8.4 10*3/uL 4.4-11.0 [facility] CBC-Complete Blood Cnt No Di ffon 05-21-2023 Erythrocyte distribution width (RBC) [Ratio] 13.5 % Normal 11.6-14.6 [facility] [place] Comment on above: Performed By: #### L 500.4050, L501.6710, L506.1000, L100.0500, L501.9520, L501.9985 ####[facility] [place] [address] [place], [address] Hematocrit (Bld) [Volume fraction] 35.2 % Low 37-47 [facility] [place] Comment on above: Performed By: #### L 500.4050, L501.6710, L506.1000, L100.0500, L501.9520, L501.9985 ####[facility] [place] [address] [place], [address] Hemoglobin (Bld) [Mass/Vol] 10.9 g/dL Low 12.0-15.0 [facility] [place] Comment on above: Performed By: #### L 500.4050, L501.6710, L506.1000, L100.0500, L501.9520, L501.9985 ####[facility] [place] [address] [place], [address] MCH (RBC) [Entitic mass] 27.2 pg Normal 27.0-32.0 [facility] [place] Comment on above: Performed By: #### L 500.4050, L501.6710, L506.1000, L100.0500, L501.9520, L501.9985 ####[facility] [place] [address] [place], [address] MCHC (RBC) [Mass/Vol] 31.0 g/dL Low 32-36 [facility] Comment on above: Performed By: #### L 500.4050, L501.6710, L506.1000, L100.0500, L501.9520, L501.9985 ####[facility] [place] [address] [place], [address] MCV (RBC) [Entitic vol] 87.8 fL Normal 81-99 [facility] Comment on above: Performed By: #### L 500.4050, L501.6710, L506.1000, L100.0500, L501.9520, L501.9985 ####[facility] [place] [address] [place], [address] Platelet mean volume (Bld) [Entitic vol] 8.9 fL Normal 6.2-12.0 [facility] [place] Comment on above: Performed By: #### L 500.4050, L501.6710, L506.1000, L100.0500, L501.9520, L501.9985 ####[facility] [place] [address] [place], [address] Platelets (Bld) [#/Vol] 375 10*3/uL Normal 150-450 [facility] [place] Comment on above: Performed By: #### L 500.4050, L501.6710, L506.1000, L100.0500, L501.9520, L501.9985 ####[facility] [place] [address] [place], [address] RBC (Bld) [#/Vol] 4.01 10*6/uL Low 4.2-5.4 [facility] Comment on above: Performed By: #### L 500.4050, L501.6710, L506.1000, L100.0500, L501.9520, L501.9985 ####[facility] [place] [address] [place], [address] RDW SD 43.7 fl Normal 35.1-43.9 [facility] [place] Comment on above: Performed By: #### L 500.4050, L501.6710, L506.1000, L100.0500, L501.9520, L501.9985 ####[facility] [place] [address] [place], [address] WBC (Bld) [#/Vol] 8.4 10*3/uL Normal 4.4-11.0 [facility] Comment on above: Performed By: #### L 500.4050, L501.6710, L506.1000, L100.0500, L501.9520, L501.9985 ####[facility] [place] [address] [place], [address] CRPon 05-21-2023 C-REACTIVE PROT 35.40 mg/L High 0.0-3.0 [facility] [place] Comment on above: Result Comment: C-Re active Protein (CRP) provides useful information for thediagnosis, therapy and monitoring of inflammatory processesand associated diseases. For the evaluation of Relative Riskfor Cardiovascular Disease, a High Sensitivity CRP (HSCRP)should be ordered. Performed By: #### L 500.4050, L501.6710, L506.1000, L100.0500, L501.9520, L501.9985 ####[facility] [place] [address] [place], [address] Comprehensive Metabolic Prof ilon 05-21-2023 Albumin [Mass/Vol] 3.0 g/dL Low 3.2-5.0 [facility] Comment on above: Performed By: #### L 500.4050, L501.6710, L506.1000, L100.0500, L501.9520, L501.9985 ####[facility] [place] [address] [place], [address] Albumin/Globulin [Mass ratio] 0.7 {ratio} Low 0.9-2.4 [facility] [place] Comment on above: Performed By: #### L 500.4050, L501.6710, L506.1000, L100.0500, L501.9520, L501.9985 ####[facility] [place] [address] [place], [address] ALK P 112 U/L Normal 45-117 [facility] [place] Comment on above: Performed By: #### L 500.4050, L501.6710, L506.1000, L100.0500, L501.9520, L501.9985 ####[facility] [place] [address] [place], [address] ALT [Catalytic activity/Vol] 24 U/L Normal 13-56 [facility] [place] Comment on above: Performed By: #### L 500.4050, L501.6710, L506.1000, L100.0500, L501.9520, L501.9985 ####[facility] [place] [address] [place], [address] AST [Catalytic activity/Vol] 18 U/L Normal 15-37 [facility] [place] Comment on above: Performed By: #### L 500.4050, L501.6710, L506.1000, L100.0500, L501.9520, L501.9985 ####[facility] [place] [address] [place], [address] Bilirubin [Mass/Vol] 0.40 mg/dL Normal 0.20-1.00 [facility] Comment on above: Result Comment: For patients on eltrombopag therapy, use of [place] TBIL is not recommended. Performed By: #### L 500.4050, L501.6710, L506.1000, L100.0500, L501.9520, L501.9985 ####[facility] [place] [address] [place], [address] BUN/CRE 21.8 RATIO High 10-20 [facility] [place] Comment on above: Performed By: #### L 500.4050, L501.6710, L506.1000, L100.0500, L501.9520, L501.9985 ####[facility] [place] [address] [place], [address] CA,Total 9.5 mg/dL Normal 8.5-10.1 [facility] [place] Comment on above: Performed By: #### L 500.4050, L501.6710, L506.1000, L100.0500, L501.9520, L501.9985 ####[facility] [place] [address] [place], [address] Chloride [Moles/Vol] 105 mmol/L Normal 98-107 [facility] Comment on above: Performed By: #### L 500.4050, L501.6710, L506.1000, L100.0500, L501.9520, L501.9985 ####[facility] [place] [address] [place], [address] CO2 [Moles/Vol] 30.0 mmol/L Normal 21.0-32.0 [facility] [place] Comment on above: Performed By: #### L 500.4050, L501.6710, L506.1000, L100.0500, L501.9520, L501.9985 ####[facility] [place] [address] [place], [address] Creatinine [Mass/Vol] 1.01 mg/dL Normal 0.55-1.02 [facility] Comment on above: Result Comment: The validity of the calculated GFR GFRAA in patients over70 years has not been determined. Clinical correlation isessential. Performed By: #### L 500.4050, L501.6710, L506.1000, L100.0500, L501.9520, L501.9985 ####[facility] [place] [address] [place], [address] EST GFR - AA 72 mL/min Normal >60 [facility] [place] Comment on above: Result Comment: Afri can [place] GFR Calc Performed By: #### L 500.4050, L501.6710, L506.1000, L100.0500, L501.9520, L501.9985 ####[facility] [place] [address] [place], [address] GAP 0 Low 5-15 [facility] [place] Comment on above: Performed By: #### L 500.4050, L501.6710, L506.1000, L100.0500, L501.9520, L501.9985 ####[facility] [place] [address] [place], [address] GFR/1.73 sq M.predicted among non-blacks MDRD (S/P/Bld) [Vol rate/Area] 59 mL/min/{1.73_m2} Low >60 [facility] [place] Comment on above: Result Comment: Non- GFR Calc Performed By: #### L 500.4050, L501.6710, L506.1000, L100.0500, L501.9520, L501.9985 ####[facility] [place] [address] [place], [address] Globulin (S) [Mass/Vol] 4.5 g/dL High 2.2-4.2 [facility] Comment on above: Performed By: #### L 500.4050, L501.6710, L506.1000, L100.0500, L501.9520, L501.9985 ####[facility] [place] [address] [place], [address] Glucose [Mass/Vol] 149 mg/dL High 74-106 [facility] Comment on above: Result Comment: Fast ing Glucose result greater than or equal to 126 mg/dLsuggests DIABETES MELLITUS per A.D.A. criteria. Performed By: #### L 500.4050, L501.6710, L506.1000, L100.0500, L501.9520, L501.9985 ####[facility] [place] [address] [place], [address] Potassium [Moles/Vol] 5.2 mmol/L High 3.5-5.1 [facility] Comment on above: Performed By: #### L 500.4050, L501.6710, L506.1000, L100.0500, L501.9520, L501.9985 ####[facility] [place] [address] [place], [address] Sodium [Moles/Vol] 135 mmol/L Low 136-145 [facility] Comment on above: Performed By: #### L 500.4050, L501.6710, L506.1000, L100.0500, L501.9520, L501.9985 ####[facility] [place] [address] [place], [address] T PROT 7.5 g/dL Normal 6.4-8.2 [facility] [place] Comment on above: Performed By: #### L 500.4050, L501.6710, L506.1000, L100.0500, L501.9520, L501.9985 ####[facility] [place] [address] [place], [address] Urea nitrogen [Mass/Vol] 22 mg/dL High 7-18 [facility] [place] Comment on above: Performed By: #### L 500.4050, L501.6710, L506.1000, L100.0500, L501.9520, L501.9985 ####[facility] [place] [address] [place], [address] Determination of erythrocyte mean corpuscular volume (MCV)Ordered By: Pato Mccall on 05-21-2023 MCV (RBC) [Entitic vol] 87.8 fL 81-99 [facility] Erythrocyte distribution wid th ratioOrdered By: Pato Mccall on 05-21-2023 Erythrocyte distribution width (RBC) [Ratio] 13.5 % 11.6-14.6 [facility] [place] Erythrocyte distribution wid th standard deviationOrdered By: Pato Mccall on 05-21-2023 Erythrocyte distribution width (RBC) [Entitic vol] 43.7 fL 35.1-43.9 [facility] [place] Hematocrit Auto (Bld) [Volum e fraction]Ordered By: Pato Mccall on 05-21-2023 Hematocrit (Bld) [Volume fraction] 35.2 % 37-47 [facility] [place] Hemoglobin A1con 05-21-2023 HbA1c (Bld) [Mass fraction] 9.7 % High 3.8-5.6 [facility] [place] Comment on above: Result Comment: Norm al < 5.7 % Prediabetic 5.7 - 6.4 % Diabetic >or= 6.5 % Please note range changes. Performed By: #### L 500.4050, L501.6710, L506.1000, L100.0500, L501.9520, L501.9985 ####[facility] [place] [address] [place], [place], [id number] Laboratory - Chemistry and C hemistry - challengeOrdered By: Pato Mccall on 05-21-2023 Albumin/Globulin [Mass ratio] 0.7 {ratio} 0.9-2.4 [facility] [place] ALP [Catalytic activity/Vol] 112 U/L 45-117 [facility] [place] ALT [Catalytic activity/Vol] 24 U/L 13-56 [facility] [place] CO2 [Moles/Vol] 30.0 mmol/L 21.0-32.0 [facility] [place] Globulin (S) [Mass/Vol] 4.5 g/dL 2.2-4.2 [facility] Urea nitrogen/Creatinine [Mass ratio] 21.8 mg/mg 10-20 [facility] [place] Laboratory - Hematology and Cell countsOrdered By: Pato Mccall on 05-21-2023 MCH (RBC) [Entitic mass] 27.2 pg 27.0-32.0 [facility] [place] MCHC (RBC) [Mass/Vol] 31.0 g/dL 32-36 [facility] Platelet mean volume (Bld) [Entitic vol] 8.9 fL 6.2-12.0 [facility] [place] Platelets (Bld) [#/Vol] 375 10*3/uL 150-450 [facility] [place] No Panel InformationOrdered By: Pato Mccall on 05-21-2023 C-Reactive Protein Extended Range 35.40 mg/L 0.0-3.0 [facility] [place] Comment on above: C-Reactive Protein ( CRP) provides useful information for thediagnosis, therapy and monitoring of inflammatory processesand associated diseases. For the evaluation of Relative Riskfor Cardiovascular Disease, a High Sensitivity CRP (HSCRP)should be ordered. Estimated GFR (MDRD) Amer 72 mL/min >60 [facility] [place] Comment on above: GFR Calc Estimated GFR (MDRD) Non-Af Amer 59 mL/min >60 [facility] [place] Comment on above: Non- GFR Calc Vitamin D 25-Hydroxy 25.6 ng/mL [facility] Comment on above: Vitamin D 25([place]) Sta tus Range Deficiency <20 ng/mL (50nmol/L) Insufficiency 20 - 30 ng/mL (50 - 75 nmol/L) Sufficiency 30 - 100 ng/mL (75 - 250 nmol/L) Toxicity >100 ng/mL (>250 nmol/L) RBC Auto (Bld) [#/Vol]Ordere d By: Pato Mccall on 05-21-2023 RBC (Bld) [#/Vol] 4.01 10*6/uL 4.2-5.4 [facility] Serum or plasma calcium cortez urement (mass/volume)Ordered By: Pato Mccall on 05-21-2023 Calcium [Mass/Vol] 9.5 mg/dL 8.5-10.1 [facility] Serum or plasma creatinine m easurement (mass/volume)Ordered By: Pato Mccall on 05-21-2023 Creatinine [Mass/Vol] 1.01 mg/dL 0.55-1.02 [facility] Comment on above: The validity of the calculated GFR & GFRAA in patients over 70 years has not been determined. Clinical correlation is essential. Serum or plasma thyroid stim ulating hormone (TSH) measurement (units/volume)Ordered By: Pato Mccall on 05-21-2023 TSH Qn 1.53 uIU/mL 0.358-3.74 [facility] [place] Serum or plasma urea nitroge n measurement (mass/volume)Ordered By: Pato Mccall on 05-21-2023 Urea nitrogen [Mass/Vol] 22 mg/dL 7-18 [facility] [place] Thin prep Papanicolaou smear with manual screeningOrdered By: Pato Mccall on 05-21-2023 Thin prep Papanicolaou smear with manual screening 3.0 g/dL 3.2-5.0 [facility] [place] Thin prep Papanicolaou smear with manual screening 18 U/L 15-37 [facility] [place] Thin prep Papanicolaou smear with manual screening 0 5-15 [facility] [place] Thyroid Stim Hormone (TSH)on 05-21-2023 TSH 1.53 uIU/mL Normal 0.358-3.74 [facility] [place] Comment on above: Performed By: #### L 500.4050, L501.6710, L506.1000, L100.0500, L501.9520, L501.9985 ####[facility] [place] [address] [place], [place], [id number] Vitamin D,25 Hydroxyon 05-20 Vitamin D 25-OH 25.6 ng/mL Normal [facility] [place] Comment on above: Result Comment: Michelle min D 25([place]) Status Range Deficiency <20 ng/mL (50nmol/L) Insufficiency 20 - 30 ng/mL (50 - 75 nmol/L) Sufficiency 30 - 100 ng/mL (75 - 250 nmol/L) Toxicity >100 ng/mL (>250 nmol/L) Performed By: #### L 500.4050, L501.6710, L506.1000, L100.0500, L501.9520, L501.9985 ####[facility] [place] [address] [place], [address] Whole blood hemoglobin A1c/t otal hemoglobin ratio (mass fraction)Ordered By: Pato Mccall on 05-21-2023 HbA1c (Bld) [Mass fraction] 9.7 % 3.8-5.6 [facility] [place] Comment on above: Normal < 5.7 % Predi abetic 5.7 - 6.4 % Diabetic >or= 6.5 % Please note range changes. Cardiology Visit Reporton Cardiology Visit Report Normal [facility] Absolute lymphocyte countOrd ered By: Magalys Shi on 03-03-2023 Lymphocytes Auto (Unsp spec) [#/Vol] 2.92 10*3/uL 0.83-4.51 [facility] [place] Automated lymphocyte count a s percentage of total leukocytesOrdered By: Magalys Shi on 03-03-2023 Lymphocytes/100 WBC Auto (Unsp spec) 18.4 % 19-41 [facility] [place] Basic Metabolic Profile (BMP )on 03-03-2023 BUN/CRE 25.8 RATIO High 10-20 [facility] [place] Comment on above: Performed By: #### L 100.0100, L500.2500 ####[facility] [place] [address] [place], [address] CA,Total 8.8 mg/dL Normal 8.5-10.1 [facility] [place] Comment on above: Performed By: #### L 100.0100, L500.2500 ####[facility] [place] [address] [place], [address] Chloride [Moles/Vol] 106 mmol/L Normal 98-107 [facility] Comment on above: Performed By: #### L 100.0100, L500.2500 ####[facility] [place] [address] [place], [address] CO2 [Moles/Vol] 24.0 mmol/L Normal 21.0-32.0 [facility] [place] Comment on above: Performed By: #### L 100.0100, L500.2500 ####[facility] [place] [address] [place], [address] Creatinine [Mass/Vol] 1.32 mg/dL High 0.55-1.02 [facility] Comment on above: Result Comment: The validity of the calculated GFR GFRAA in patients over70 years has not been determined. Clinical correlation isessential. Performed By: #### L 100.0100, L500.2500 ####[facility] [place] [address] [place], [address] ECRCL 68.52 ml/min Normal [facility] [place] Comment on above: Performed By: #### L 100.0100, L500.2500 ####[facility] [place] [address] [place], [address] EST GFR - AA 53 mL/min Low >60 [facility] [place] Comment on above: Result Comment: Afri can Hungarian GFR Calc Performed By: #### L 100.0100, L500.2500 ####[facility] [place] [address] [place], [address] GAP 5 Normal 5-15 [facility] [place] Comment on above: Performed By: #### L 100.0100, L500.2500 ####[facility] [place] [address] [place], [address] GFR/1.73 sq M.predicted among non-blacks MDRD (S/P/Bld) [Vol rate/Area] 44 mL/min/{1.73_m2} Low >60 [facility] [place] Comment on above: Result Comment: Non- GFR Calc Performed By: #### L 100.0100, L500.2500 ####[facility] [place] [address] [place], [address] Glucose [Mass/Vol] 249 mg/dL High 74-106 [facility] Comment on above: Result Comment: Gluc ose result greater than or equal to 200 mg/dLsuggests DIABETES MELLITUS per A.D.A. criteria. Performed By: #### L 100.0100, L500.2500 ####[facility] [place] [address] [place], [address] Potassium [Moles/Vol] 4.1 mmol/L Normal 3.5-5.1 [facility] Comment on above: Performed By: #### L 100.0100, L500.2500 ####[facility] [place] [address] [place], [address] Sodium [Moles/Vol] 135 mmol/L Low 136-145 [facility] Comment on above: Performed By: #### L 100.0100, L500.2500 ####[facility] [place] [address] [place], [address] Urea nitrogen [Mass/Vol] 34 mg/dL High 7-18 [facility] [place] Comment on above: Performed By: #### L 100.0100, L500.2500 ####[facility] [place] [address] [place], [address] Basophil percentageOrdered B y: Magalys Shi on 03-03-2023 Basophils/100 WBC (Bld) 0.6 % 0-1 [facility] Chloride [Moles/Vol] 106 mmol/L 98-107 [facility] Eosinophils/100 WBC (Bld) 1.3 % 0-5 [facility] [place] Glucose [Mass/Vol] 249 mg/dL 74-106 [facility] Comment on above: Glucose result great er than or equal to 200 mg/dLsuggests DIABETES MELLITUS per A.D.A. criteria. Hemoglobin (Bld) [Mass/Vol] 9.1 g/dL 12.0-15.0 [facility] [place] Monocytes/100 WBC (Bld) 5.5 % 0-10 [facility] Neutrophils (Bld) [#/Vol] 11.7 10*3/uL 2.0-7.7 [facility] [place] Neutrophils/100 WBC (Bld) 73.8 % 47-70 [facility] [place] Potassium [Moles/Vol] 4.1 mmol/L 3.5-5.1 [facility] Sodium [Moles/Vol] 135 mmol/L 136-145 [facility] WBC (Bld) [#/Vol] 15.8 10*3/uL 4.4-11.0 [facility] CBC W/Diff, Automatedon 02-09 Absolute Lymph 2.92 X10 3/uL Normal 0.83-4.51 [facility] [place] Comment on above: Performed By: #### L 100.0100, L500.2500 ####[facility] [place] [address], [address] Absolute Neut 11.7 X10 3/uL High 2.0-7.7 [facility] [place] Comment on above: Performed By: #### L 100.0100, L500.2500 ####[facility] [place] [address] [place], [address] Basophils/100 WBC (Bld) 0.6 % Normal 0-1 [facility] Comment on above: Performed By: #### L 100.0100, L500.2500 ####[facility] [place] [address] [place], [address] Eosinophils/100 WBC (Bld) 1.3 % Normal 0-5 [facility] [place] Comment on above: Performed By: #### L 100.0100, L500.2500 ####[facility] [place] [address] [place], [address] Erythrocyte distribution width (RBC) [Ratio] 14.4 % Normal 11.6-14.6 [facility] [place] Comment on above: Performed By: #### L 100.0100, L500.2500 ####[facility] [place] [address] [place], [address] Hematocrit (Bld) [Volume fraction] 29.2 % Low 37-47 [facility] [place] Comment on above: Performed By: #### L 100.0100, L500.2500 ####[facility] [place] [address] [place], [address] Hemoglobin (Bld) [Mass/Vol] 9.1 g/dL Low 12.0-15.0 [facility] [place] Comment on above: Performed By: #### L 100.0100, L500.2500 ####[facility] [place] [address] [place], [address] IG% 0.400 Normal 0.0-0.9 [facility] [place] Comment on above: Result Comment: IG% - Immature Granulocytes (promyelocytes, myelocytes andmetamyelocytes) > 1% indicates that a LEFT SHIFT is Present. Performed By: #### L 100.0100, L500.2500 ####[facility] [place] [address] [place], [address] Lymphocytes/100 WBC (Bld) 18.4 % Low 19-41 [facility] [place] Comment on above: Performed By: #### L 100.0100, L500.2500 ####[facility] [place] [address] [place], [address] MCH (RBC) [Entitic mass] 27.2 pg Normal 27.0-32.0 [facility] [place] Comment on above: Performed By: #### L 100.0100, L500.2500 ####[facility] [place] [address] [place], [address] MCHC (RBC) [Mass/Vol] 31.2 g/dL Low 32-36 [facility] Comment on above: Performed By: #### L 100.0100, L500.2500 ####[facility] [place] [address] [place], [address] MCV (RBC) [Entitic vol] 87.2 fL Normal 81-99 [facility] Comment on above: Performed By: #### L 100.0100, L500.2500 ####[facility] [place] [address] [place], [address] Monocytes/100 WBC (Bld) 5.5 % Normal 0-10 [facility] Comment on above: Performed By: #### L 100.0100, L500.2500 ####[facility] [place] [address] [place], [address] Neutrophils/100 WBC (Bld) 73.8 % High 47-70 [facility] [place] Comment on above: Performed By: #### L 100.0100, L500.2500 ####[facility] [place] [address] [place], [address] Nucleated RBC (Bld) [#/Vol] 0 10*3/uL Normal 0-5 [facility] [place] Comment on above: Performed By: #### L 100.0100, L500.2500 ####[facility] [place] [address] [place], [address] Platelet mean volume (Bld) [Entitic vol] 9.3 fL Normal 6.2-12.0 [facility] [place] Comment on above: Performed By: #### L 100.0100, L500.2500 ####[facility] [place] [address] [place], [address] Platelets (Bld) [#/Vol] 383 10*3/uL Normal 150-450 [facility] [place] Comment on above: Performed By: #### L 100.0100, L500.2500 ####[facility] [place] [address] [place], [address] RBC (Bld) [#/Vol] 3.35 10*6/uL Low 4.2-5.4 [facility] Comment on above: Performed By: #### L 100.0100, L500.2500 ####[facility] [place] [address] [place], [address] RDW SD 45.5 fl High 35.1-43.9 [facility] [place] Comment on above: Performed By: #### L 100.0100, L500.2500 ####[facility] [place] [address] [place], [address] WBC (Bld) [#/Vol] 15.8 10*3/uL High 4.4-11.0 [facility] Comment on above: Performed By: #### L 100.0100, L500.2500 ####[facility] [place] [address] [place], [address] Determination of erythrocyte mean corpuscular volume (MCV)Ordered By: Magalys Shi on 03-03-2023 MCV (RBC) [Entitic vol] 87.2 fL 81-99 [facility] Emergency Department Summary on 03-03-2023 Emergency Department Summary Normal [facility] [place] Erythrocyte distribution wid th ratioOrdered By: Magalys Shi on 03-03-2023 Erythrocyte distribution width (RBC) [Ratio] 14.4 % 11.6-14.6 [facility] [place] Erythrocyte distribution wid th standard deviationOrdered By: Magalys Shi on 03-03-2023 Erythrocyte distribution width (RBC) [Entitic vol] 45.5 fL 35.1-43.9 [facility] [place] Hematocrit Auto (Bld) [Volum e fraction]Ordered By: Magalys Shi on 03-03-2023 Hematocrit (Bld) [Volume fraction] 29.2 % 37-47 [facility] [place] Immature granulocytes/100 WB C Auto (Bld)Ordered By: Magalys Shi on 03-03-2023 Immature granulocytes/100 WBC (Bld) 0.400 % 0.0-0.9 [facility] [place] Comment on above: IG% - Immature Granu locytes (promyelocytes, myelocytes and metamyelocytes) > 1% indicates that a LEFT SHIFT is Present. Laboratory - Chemistry and C hemistry - challengeOrdered By: Magalys Shi on 03-03-2023 CO2 [Moles/Vol] 24.0 mmol/L 21.0-32.0 [facility] [place] Urea nitrogen/Creatinine [Mass ratio] 25.8 mg/mg 10-20 [facility] [place] Laboratory - Hematology and Cell countsOrdered By: Magalys Shi on 03-03-2023 MCH (RBC) [Entitic mass] 27.2 pg 27.0-32.0 [facility] [place] MCHC (RBC) [Mass/Vol] 31.2 g/dL 32-36 [facility] Nucleated RBC/100 WBC (Bld) [Ratio] 0 % 0-5 [facility] [place] Platelets (Bld) [#/Vol] 383 10*3/uL 150-450 [facility] [place] No Panel InformationOrdered By: Magalys Shi on 03-03-2023 Estimated Creatinine Clearance Calc 68.52 ml/min [facility] [place] Estimated GFR (MDRD) Amer 53 mL/min >60 [facility] [place] Comment on above: GFR Calc Estimated GFR (MDRD) Non-Af Amer 44 mL/min >60 [facility] [place] Comment on above: Non- GFR Calc Platelet mean volume Lázaro-Ec ker (Bld) [Entitic vol]Ordered By: Magalys Shi on 03-03-2023 Platelet mean volume (Bld) [Entitic vol] 9.3 fL 6.2-12.0 [facility] [place] RBC Auto (Bld) [#/Vol]Ordere d By: Magalys hSi on 03-03-2023 RBC (Bld) [#/Vol] 3.35 10*6/uL 4.2-5.4 [facility] Serum or plasma calcium cortez urement (mass/volume)Ordered By: Magalys Shi on 03-03-2023 Calcium [Mass/Vol] 8.8 mg/dL 8.5-10.1 [facility] Serum or plasma creatinine m easurement (mass/volume)Ordered By: Magalys Shi on 03-03-2023 Creatinine [Mass/Vol] 1.32 mg/dL 0.55-1.02 [facility] Comment on above: The validity of the calculated GFR & GFRAA in patients over 70 years has not been determined. Clinical correlation is essential. Serum or plasma urea nitroge n measurement (mass/volume)Ordered By: Magalys Shi on 03-03-2023 Urea nitrogen [Mass/Vol] 34 mg/dL 7-18 [facility] [place] Thin prep Papanicolaou smear with manual screeningOrdered By: Magalys Shi on 03-03-2023 Thin prep Papanicolaou smear with manual screening 5 5-15 [facility] [place] Venous Duplex Imag/Limited/U nion 03-03-2023 Venous Duplex Imag/Limited/Uni Normal [facility] [place] 12 Lead EKG performed by [facility] on 03-02-2023 12 Lead EKG performed by [facility] Normal [facility] [place] Absolute lymphocyte countOrd ered By: Avi Baeza on 03-02-2023 Lymphocytes Auto (Unsp spec) [#/Vol] 2.22 10*3/uL 0.83-4.51 [facility] [place] Automated lymphocyte count a s percentage of total leukocytesOrdered By: Avi Baeza on 03-02-2023 Lymphocytes/100 WBC Auto (Unsp spec) 18.1 % 19-41 [facility] [place] BNP,B-Type NATRIURETIC PEPTI Romel 03-02-2023 Natriuretic peptide B (Bld) [Mass/Vol] 64.1 pg/mL Normal 0-100 [facility] [place] Comment on above: Performed By: #### L 503.6620, L500.4050, L100.0100 ####[facility] [place] [address] [place], [address] Basophil percentageOrdered B y: Avi Baeza on 03-02-2023 Basophils/100 WBC (Bld) 0.7 % 0-1 [facility] Bilirubin [Mass/Vol] 0.30 mg/dL 0.20-1.00 [facility] Comment on above: For patients on eltr ombopag therapy, use of [place] TBIL is not recommended. Chloride [Moles/Vol] 106 mmol/L 98-107 [facility] Eosinophils/100 WBC (Bld) 1.2 % 0-5 [facility] [place] Glucose [Mass/Vol] 235 mg/dL 74-106 [facility] Comment on above: Glucose result great er than or equal to 200 mg/dLsuggests DIABETES MELLITUS per A.D.A. criteria. Hemoglobin (Bld) [Mass/Vol] 10.1 g/dL 12.0-15.0 [facility] [place] Monocytes/100 WBC (Bld) 5.8 % 0-10 [facility] Neutrophils (Bld) [#/Vol] 9.1 10*3/uL 2.0-7.7 [facility] [place] Neutrophils/100 WBC (Bld) 73.7 % 47-70 [facility] [place] Potassium [Moles/Vol] 4.2 mmol/L 3.5-5.1 [facility] Protein [Mass/Vol] 7.6 g/dL 6.4-8.2 [facility] Sodium [Moles/Vol] 138 mmol/L 136-145 [facility] WBC (Bld) [#/Vol] 12.3 10*3/uL 4.4-11.0 [facility] CBC W/Diff, Automatedon 01-2 -2023 Absolute Lymph 2.22 X10 3/uL Normal 0.83-4.51 [facility] [place] Comment on above: Performed By: #### L 503.6620, L500.4050, L100.0100 ####[facility] [place] [address] [place], [address] Absolute Neut 9.1 X10 3/uL High 2.0-7.7 [facility] [place] Comment on above: Performed By: #### L 503.6620, L500.4050, L100.0100 ####[facility] [place] [address] [place], [address] Basophils/100 WBC (Bld) 0.7 % Normal 0-1 [facility] Comment on above: Performed By: #### L 503.6620, L500.4050, L100.0100 ####[facility] [place] [address] [place], [address] Eosinophils/100 WBC (Bld) 1.2 % Normal 0-5 [facility] [place] Comment on above: Performed By: #### L 503.6620, L500.4050, L100.0100 ####[facility] [place] [address] [place], [address] Erythrocyte distribution width (RBC) [Ratio] 14.5 % Normal 11.6-14.6 [facility] [place] Comment on above: Performed By: #### L 503.6620, L500.4050, L100.0100 ####[facility] [place] [address] [place], [address] Hematocrit (Bld) [Volume fraction] 33.3 % Low 37-47 [facility] [place] Comment on above: Performed By: #### L 503.6620, L500.4050, L100.0100 ####[facility] [place] [address] [place], [address] Hemoglobin (Bld) [Mass/Vol] 10.1 g/dL Low 12.0-15.0 [facility] [place] Comment on above: Performed By: #### L 503.6620, L500.4050, L100.0100 ####[facility] [place] [address] [place], [address] IG% 0.500 Normal 0.0-0.9 [facility] [place] Comment on above: Result Comment: IG% - Immature Granulocytes (promyelocytes, myelocytes andmetamyelocytes) > 1% indicates that a LEFT SHIFT is Present. Performed By: #### L 503.6620, L500.4050, L100.0100 ####[facility] [place] [address] [place], [address] Lymphocytes/100 WBC (Bld) 18.1 % Low 19-41 [facility] [place] Comment on above: Performed By: #### L 503.6620, L500.4050, L100.0100 ####[facility] [place] [address] [place], [address] MCH (RBC) [Entitic mass] 27.1 pg Normal 27.0-32.0 [facility] Comment on above: Performed By: #### L 503.6620, L500.4050, L100.0100 ####[facility] [place] [address] [place], [address] MCHC (RBC) [Mass/Vol] 30.3 g/dL Low 32-36 [facility] Comment on above: Performed By: #### L 503.6620, L500.4050, L100.0100 ####[facility] [place] [address] [place], [address] MCV (RBC) [Entitic vol] 89.3 fL Normal 81-99 [facility] Comment on above: Performed By: #### L 503.6620, L500.4050, L100.0100 ####[facility] [place] [address] [place], [address] Monocytes/100 WBC (Bld) 5.8 % Normal 0-10 [facility] Comment on above: Performed By: #### L 503.6620, L500.4050, L100.0100 ####[facility] [place] [address] [place], [address] Neutrophils/100 WBC (Bld) 73.7 % High 47-70 [facility] [place] Comment on above: Performed By: #### L 503.6620, L500.4050, L100.0100 ####[facility] [place] [address] [place], [address] Nucleated RBC (Bld) [#/Vol] 0 10*3/uL Normal 0-5 [facility] Comment on above: Performed By: #### L 503.6620, L500.4050, L100.0100 ####[facility] [place] [address] [place], [address] Platelet mean volume (Bld) [Entitic vol] 9.5 fL Normal 6.2-12.0 [facility] Comment on above: Performed By: #### L 503.6620, L500.4050, L100.0100 ####[facility] [address] [place], [address] Platelets (Bld) [#/Vol] 454 10*3/uL High 150-450 [facility] Comment on above: Performed By: #### L 503.6620, L500.4050, L100.0100 ####[facility] [place] [address] [place], [address] RBC (Bld) [#/Vol] 3.73 10*6/uL Low 4.2-5.4 [facility] Comment on above: Performed By: #### L 503.6620, L500.4050, L100.0100 ####[facility] [address] [place], [address] RDW SD 46.8 fl High 35.1-43.9 [facility] Comment on above: Performed By: #### L 503.6620, L500.4050, L100.0100 ####[facility] [place] [address] [place], [address] WBC (Bld) [#/Vol] 12.3 10*3/uL High 4.4-11.0 [facility] Comment on above: Performed By: #### L 503.6620, L500.4050, L100.0100 ####[facility] [address] [place], [address] Cardiology Visit Reporton Cardiology Visit Report Normal [facility] Chest PA and Lateralon 03-02 Chest PA and Lateral Normal [facility] Comprehensive Metabolic Prof ilon 03-02-2023 Albumin [Mass/Vol] 3.1 g/dL Low 3.2-5.0 [facility] Comment on above: Performed By: #### L 503.6620, L500.4050, L100.0100 ####[facility] [address] [place], [address] Albumin/Globulin [Mass ratio] 0.7 {ratio} Low 0.9-2.4 [facility] Comment on above: Performed By: #### L 503.6620, L500.4050, L100.0100 ####[facility] [address] [place], [address] ALK P 127 U/L High 45-117 [facility] Comment on above: Performed By: #### L 503.6620, L500.4050, L100.0100 ####[facility] [address] [place], [address] ALT [Catalytic activity/Vol] 23 U/L Normal 13-56 [facility] [place] Comment on above: Performed By: #### L 503.6620, L500.4050, L100.0100 ####[facility] [place] [address] [place], [address] AST [Catalytic activity/Vol] 15 U/L Normal 15-37 [facility] [place] Comment on above: Performed By: #### L 503.6620, L500.4050, L100.0100 ####[facility] [place] [address] [place], [address] Bilirubin [Mass/Vol] 0.30 mg/dL Normal 0.20-1.00 [facility] Comment on above: Result Comment: For patients on eltrombopag therapy, use of [place] TBIL is not recommended. Performed By: #### L 503.6620, L500.4050, L100.0100 ####[facility] [place] [address] [place], [address] BUN/CRE 28.2 RATIO High 10-20 [facility] [place] Comment on above: Performed By: #### L 503.6620, L500.4050, L100.0100 ####[facility] [place] [address] [place], [address] CA,Total 9.2 mg/dL Normal 8.5-10.1 [facility] [place] Comment on above: Performed By: #### L 503.6620, L500.4050, L100.0100 ####[facility] [place] [address] [place], [address] Chloride [Moles/Vol] 106 mmol/L Normal 98-107 [facility] Comment on above: Performed By: #### L 503.6620, L500.4050, L100.0100 ####[facility] [place] [address] [place], [address] CO2 [Moles/Vol] 30.0 mmol/L Normal 21.0-32.0 [facility] [place] Comment on above: Performed By: #### L 503.6620, L500.4050, L100.0100 ####[facility] [place] [address] [place], [address] Creatinine [Mass/Vol] 1.17 mg/dL High 0.55-1.02 [facility] Comment on above: Result Comment: The validity of the calculated GFR GFRAA in patients over70 years has not been determined. Clinical correlation isessential. Performed By: #### L 503.6620, L500.4050, L100.0100 ####[facility] [place] [address] [place], [address] EST GFR - AA 61 mL/min Normal >60 [facility] [place] Comment on above: Result Comment: Afri can Hungarian GFR Calc Performed By: #### L 503.6620, L500.4050, L100.0100 ####[facility] [place] [address] [place], [address] GAP 2 Low 5-15 [facility] [place] Comment on above: Performed By: #### L 503.6620, L500.4050, L100.0100 ####[facility] [place] [address] [place], [address] GFR/1.73 sq M.predicted among non-blacks MDRD (S/P/Bld) [Vol rate/Area] 50 mL/min/{1.73_m2} Low >60 [facility] [place] Comment on above: Result Comment: Non- GFR Calc Performed By: #### L 503.6620, L500.4050, L100.0100 ####[facility] [place] [address] [place], [address] Globulin (S) [Mass/Vol] 4.5 g/dL High 2.2-4.2 [facility] Comment on above: Performed By: #### L 503.6620, L500.4050, L100.0100 ####[facility] [place] [address] [place], [address] Glucose [Mass/Vol] 235 mg/dL High 74-106 [facility] Comment on above: Result Comment: Gluc ose result greater than or equal to 200 mg/dLsuggests DIABETES MELLITUS per A.D.A. criteria. Performed By: #### L 503.6620, L500.4050, L100.0100 ####[facility] [place] [address] [place], [address] Potassium [Moles/Vol] 4.2 mmol/L Normal 3.5-5.1 [facility] Comment on above: Performed By: #### L 503.6620, L500.4050, L100.0100 ####[facility] [place] [address] [place], [address] Sodium [Moles/Vol] 138 mmol/L Normal 136-145 [facility] Comment on above: Performed By: #### L 503.6620, L500.4050, L100.0100 ####[facility] [place] [address] [place], [address] T PROT 7.6 g/dL Normal 6.4-8.2 [facility] [place] Comment on above: Performed By: #### L 503.6620, L500.4050, L100.0100 ####[facility] [place] [address] [place], [address] Urea nitrogen [Mass/Vol] 33 mg/dL High 7-18 [facility] [place] Comment on above: Performed By: #### L 503.6620, L500.4050, L100.0100 ####[facility] [place] [address] [place], [address] Determination of erythrocyte mean corpuscular volume (MCV)Ordered By: Avi Baeza on 03-02-2023 MCV (RBC) [Entitic vol] 89.3 fL 81-99 [facility] Erythrocyte distribution wid th ratioOrdered By: Avi Baeza on 03-02-2023 Erythrocyte distribution width (RBC) [Ratio] 14.5 % 11.6-14.6 [facility] [place] Erythrocyte distribution wid th standard deviationOrdered By: Avi Baeza on 03-02-2023 Erythrocyte distribution width (RBC) [Entitic vol] 46.8 fL 35.1-43.9 [facility] [place] Hematocrit Auto (Bld) [Volum e fraction]Ordered By: Avi Baeza on 03-02-2023 Hematocrit (Bld) [Volume fraction] 33.3 % 37-47 [facility] [place] Immature granulocytes/100 WB C Auto (Bld)Ordered By: Avi Baeza on 03-02-2023 Immature granulocytes/100 WBC (Bld) 0.500 % 0.0-0.9 [facility] [place] Comment on above: IG% - Immature Granu locytes (promyelocytes, myelocytes and metamyelocytes) > 1% indicates that a LEFT SHIFT is Present. Laboratory - Chemistry and C hemistry - challengeOrdered By: Avi Baeza on 03-02-2023 Albumin/Globulin [Mass ratio] 0.7 {ratio} 0.9-2.4 [facility] [place] ALP [Catalytic activity/Vol] 127 U/L 45-117 [facility] [place] ALT [Catalytic activity/Vol] 23 U/L 13-56 [facility] [place] CO2 [Moles/Vol] 30.0 mmol/L 21.0-32.0 [facility] [place] Globulin (S) [Mass/Vol] 4.5 g/dL 2.2-4.2 [facility] Natriuretic peptide B (Bld) [Mass/Vol] 64.1 pg/mL 0-100 [facility] [place] Urea nitrogen/Creatinine [Mass ratio] 28.2 mg/mg 10-20 [facility] [place] Laboratory - Hematology and Cell countsOrdered By: Avi Baeza on 03-02-2023 MCH (RBC) [Entitic mass] 27.1 pg 27.0-32.0 [facility] [place] MCHC (RBC) [Mass/Vol] 30.3 g/dL 32-36 [facility] Nucleated RBC/100 WBC (Bld) [Ratio] 0 % 0-5 [facility] [place] Platelets (Bld) [#/Vol] 454 10*3/uL 150-450 [facility] [place] No Panel InformationOrdered By: Avi Baeza on 03-02-2023 Estimated GFR (MDRD) Amer 61 mL/min >60 [facility] [place] Comment on above: GFR Calc Estimated GFR (MDRD) Non-Af Amer 50 mL/min >60 [facility] [place] Comment on above: Non- GFR Calc Platelet mean volume Lázaro-Ec ker (Bld) [Entitic vol]Ordered By: Avi Baeza on 03-02-2023 Platelet mean volume (Bld) [Entitic vol] 9.5 fL 6.2-12.0 [facility] [place] RBC Auto (Bld) [#/Vol]Ordere d By: Avi Baeza on 03-02-2023 RBC (Bld) [#/Vol] 3.73 10*6/uL 4.2-5.4 [facility] Serum or plasma calcium cortez urement (mass/volume)Ordered By: Avi Baeza on 03-02-2023 Calcium [Mass/Vol] 9.2 mg/dL 8.5-10.1 [facility] Serum or plasma creatinine m easurement (mass/volume)Ordered By: Avi Baeza on 03-02-2023 Creatinine [Mass/Vol] 1.17 mg/dL 0.55-1.02 [facility] Comment on above: The validity of the calculated GFR & GFRAA in patients over 70 years has not been determined. Clinical correlation is essential. Serum or plasma urea nitroge n measurement (mass/volume)Ordered By: Avi Baeza on 03-02-2023 Urea nitrogen [Mass/Vol] 33 mg/dL 7-18 [facility] [place] Thin prep Papanicolaou smear with manual screeningOrdered By: Avi Baeza on 03-02-2023 Thin prep Papanicolaou smear with manual screening 3.1 g/dL 3.2-5.0 [facility] [place] Thin prep Papanicolaou smear with manual screening 15 U/L 15-37 [facility] [place] Thin prep Papanicolaou smear with manual screening 2 5-15 [facility] [place] Cardiology Visit Reporton Cardiology Visit Report Normal [facility] 12 Lead EKGon 01-30-2023 12 Lead EKG Normal [facility] [place] Absolute lymphocyte countOrd ered By: Liza Hughes on 01-30-2023 Lymphocytes Auto (Unsp spec) [#/Vol] 2.40 10*3/uL 0.83-4.51 [facility] [place] BNP,B-Type NATRIURETIC PEPTI Romel 01-30-2023 Natriuretic peptide B (Bld) [Mass/Vol] 91.1 pg/mL Normal 0-100 [facility] [place] Comment on above: Performed By: #### L 503.6620, L500.2500, L100.0100, L501.4020 ####[facility] [place] [address] [place], [address] Basic Metabolic Profile (BMP )on 01-30-2023 BUN/CRE 26.7 RATIO High 10-20 [facility] [place] Comment on above: Order Comment: 'TROP ' Serial specimen #1, #2 or #3: 1 Performed By: #### L 503.6620, L500.2500, L100.0100, L501.4020 ####[facility] [place] [address] [place], [address] CA,Total 9.3 mg/dL Normal 8.5-10.1 [facility] [place] Comment on above: Order Comment: 'TROP ' Serial specimen #1, #2 or #3: 1 Performed By: #### L 503.6620, L500.2500, L100.0100, L501.4020 ####[facility] [place] [address] [place], [address] Chloride [Moles/Vol] 109 mmol/L High 98-107 [facility] Comment on above: Order Comment: 'TROP ' Serial specimen #1, #2 or #3: 1 Performed By: #### L 503.6620, L500.2500, L100.0100, L501.4020 ####[facility] [place] [address] [place], [address] CO2 [Moles/Vol] 23.0 mmol/L Normal 21.0-32.0 [facility] [place] Comment on above: Order Comment: 'TROP ' Serial specimen #1, #2 or #3: 1 Performed By: #### L 503.6620, L500.2500, L100.0100, L501.4020 ####[facility] [place] [address] [place], [address] Creatinine [Mass/Vol] 1.01 mg/dL Normal 0.55-1.02 [facility] Comment on above: Order Comment: 'TROP ' Serial specimen #1, #2 or #3: 1 Result Comment: The validity of the calculated GFR GFRAA in patients over70 years has not been determined. Clinical correlation isessential. Performed By: #### L 503.6620, L500.2500, L100.0100, L501.4020 ####[facility] [place] [address] [place], [address] ECRCL 53.97 ml/min Normal [facility] [place] Comment on above: Order Comment: 'TROP ' Serial specimen #1, #2 or #3: 1 Performed By: #### L 503.6620, L500.2500, L100.0100, L501.4020 ####[facility] [place] [address] [place], [address] EST GFR - AA 72 mL/min Normal >60 [facility] [place] Comment on above: Order Comment: 'TROP ' Serial specimen #1, #2 or #3: 1 Result Comment: Afri can Hungarian GFR Calc Performed By: #### L 503.6620, L500.2500, L100.0100, L501.4020 ####[facility] [place] [address] [place], [address] GAP 4 Low 5-15 [facility] [place] Comment on above: Order Comment: 'TROP ' Serial specimen #1, #2 or #3: 1 Performed By: #### L 503.6620, L500.2500, L100.0100, L501.4020 ####[facility] [place] [address] [place], [address] GFR/1.73 sq M.predicted among non-blacks MDRD (S/P/Bld) [Vol rate/Area] 59 mL/min/{1.73_m2} Low >60 [facility] [place] Comment on above: Order Comment: 'TROP ' Serial specimen #1, #2 or #3: 1 Result Comment: Non- GFR Calc Performed By: #### L 503.6620, L500.2500, L100.0100, L501.4020 ####[facility] [place] [address] [place], [address] Glucose [Mass/Vol] 250 mg/dL High 74-106 [facility] Comment on above: Order Comment: 'TROP ' Serial specimen #1, #2 or #3: 1 Result Comment: Gluc ose result greater than or equal to 200 mg/dLsuggests DIABETES MELLITUS per A.D.A. criteria. Performed By: #### L 503.6620, L500.2500, L100.0100, L501.4020 ####[facility] [place] [address] [place], [address] Potassium [Moles/Vol] 5.2 mmol/L High 3.5-5.1 [facility] Comment on above: Order Comment: 'TROP ' Serial specimen #1, #2 or #3: 1 Result Comment: Slig ht Hemolysis, Result may be falsely increased. Performed By: #### L 503.6620, L500.2500, L100.0100, L501.4020 ####[facility] [place] [address] [place], [address] Sodium [Moles/Vol] 136 mmol/L Normal 136-145 [facility] Comment on above: Order Comment: 'TROP ' Serial specimen #1, #2 or #3: 1 Performed By: #### L 503.6620, L500.2500, L100.0100, L501.4020 ####[facility] [place] [address] [place], [address] Urea nitrogen [Mass/Vol] 27 mg/dL High 7-18 [facility] [place] Comment on above: Order Comment: 'TROP ' Serial specimen #1, #2 or #3: 1 Performed By: #### L 503.6620, L500.2500, L100.0100, L501.4020 ####[facility] [place] [address] [place], [address] Basophil percentageOrdered B y: Liza Hughes on 01-30-2023 Basophils/100 WBC (Bld) 0.7 % 0-1 [facility] Chloride [Moles/Vol] 109 mmol/L 98-107 [facility] Eosinophils/100 WBC (Bld) 2.4 % 0-5 [facility] [place] Glucose [Mass/Vol] 250 mg/dL 74-106 [facility] Comment on above: Glucose result great er than or equal to 200 mg/dLsuggests DIABETES MELLITUS per A.D.A. criteria. Neutrophils (Bld) [#/Vol] 6.5 10*3/uL 2.0-7.7 [facility] [place] Neutrophils/100 WBC (Bld) 66.0 % 47-70 [facility] [place] Potassium [Moles/Vol] 5.2 mmol/L 3.5-5.1 [facility] Comment on above: Slight Hemolysis, Re sult may be falsely increased. Sodium [Moles/Vol] 136 mmol/L 136-145 [facility] WBC (Bld) [#/Vol] 9.9 10*3/uL 4.4-11.0 [facility] Blood erythrocytes count (nu mber/volume)Ordered By: Liza Hughes on 01-30-2023 RBC (Bld) [#/Vol] 3.61 10*6/uL 4.2-5.4 [facility] Blood hemoglobin measurement (mass/volume)Ordered By: Liza Hughes on 01-30-2023 Hemoglobin (Bld) [Mass/Vol] 9.8 g/dL 12.0-15.0 [facility] [place] Blood lymphocytes/100 leukoc ytesOrdered By: Liza Hughes on 01-30-2023 Lymphocytes/100 WBC (Bld) 24.3 % 19-41 [facility] [place] Blood monocytes/100 leukocyt esOrdered By: Liza Hughes on 01-30-2023 Monocytes/100 WBC (Bld) 6.3 % 0-10 [facility] Blood platelet mean volumeOr dered By: Liza Hughes on 01-30-2023 Platelet mean volume (Bld) [Entitic vol] 9.2 fL 6.2-12.0 [facility] [place] CBC W/Diff, Automatedon 01-09-2022 Absolute Lymph 2.40 X10 3/uL Normal 0.83-4.51 [facility] [place] Comment on above: Performed By: #### L 503.6620, L500.2500, L100.0100, L501.4020 ####[facility] [place] [address] [place], [address] Absolute Neut 6.5 X10 3/uL Normal 2.0-7.7 [facility] [place] Comment on above: Performed By: #### L 503.6620, L500.2500, L100.0100, L501.4020 ####[facility] [place] [address] [place], [address] Basophils/100 WBC (Bld) 0.7 % Normal 0-1 [facility] Comment on above: Performed By: #### L 503.6620, L500.2500, L100.0100, L501.4020 ####[facility] [place] [address] [place], [address] Eosinophils/100 WBC (Bld) 2.4 % Normal 0-5 [facility] [place] Comment on above: Performed By: #### L 503.6620, L500.2500, L100.0100, L501.4020 ####[facility] [place] [address] [place], [address] Erythrocyte distribution width (RBC) [Ratio] 13.8 % Normal 11.6-14.6 [facility] [place] Comment on above: Performed By: #### L 503.6620, L500.2500, L100.0100, L501.4020 ####[facility] [place] [address] [place], [address] Hematocrit (Bld) [Volume fraction] 31.9 % Low 37-47 [facility] [place] Comment on above: Performed By: #### L 503.6620, L500.2500, L100.0100, L501.4020 ####[facility] [place] [address] [place], [address] Hemoglobin (Bld) [Mass/Vol] 9.8 g/dL Low 12.0-15.0 [facility] [place] Comment on above: Performed By: #### L 503.6620, L500.2500, L100.0100, L501.4020 ####[facility] [place] [address] [place], [address] IG% 0.300 Normal 0.0-0.9 [facility] [place] Comment on above: Result Comment: IG% - Immature Granulocytes (promyelocytes, myelocytes andmetamyelocytes) > 1% indicates that a LEFT SHIFT is Present. Performed By: #### L 503.6620, L500.2500, L100.0100, L501.4020 ####[facility] [place] [address] [place], [address] Lymphocytes/100 WBC (Bld) 24.3 % Normal 19-41 [facility] [place] Comment on above: Performed By: #### L 503.6620, L500.2500, L100.0100, L501.4020 ####[facility] [place] [address] [place], [address] MCH (RBC) [Entitic mass] 27.1 pg Normal 27.0-32.0 [facility] [place] Comment on above: Performed By: #### L 503.6620, L500.2500, L100.0100, L501.4020 ####[facility] [place] [address] [place], [address] MCHC (RBC) [Mass/Vol] 30.7 g/dL Low 32-36 [facility] Comment on above: Performed By: #### L 503.6620, L500.2500, L100.0100, L501.4020 ####[facility] [place] [address] [place], [address] MCV (RBC) [Entitic vol] 88.4 fL Normal 81-99 [facility] Comment on above: Performed By: #### L 503.6620, L500.2500, L100.0100, L501.4020 ####[facility] [place] [address] [place], [address] Monocytes/100 WBC (Bld) 6.3 % Normal 0-10 [facility] Comment on above: Performed By: #### L 503.6620, L500.2500, L100.0100, L501.4020 ####[facility] [place] [address] [place], [address] Neutrophils/100 WBC (Bld) 66.0 % Normal 47-70 [facility] [place] Comment on above: Performed By: #### L 503.6620, L500.2500, L100.0100, L501.4020 ####[facility] [place] [address] [place], [address] Nucleated RBC (Bld) [#/Vol] 0 10*3/uL Normal 0-5 [facility] [place] Comment on above: Performed By: #### L 503.6620, L500.2500, L100.0100, L501.4020 ####[facility] [place] [address] [place], [address] Platelet mean volume (Bld) [Entitic vol] 9.2 fL Normal 6.2-12.0 [facility] [place] Comment on above: Performed By: #### L 503.6620, L500.2500, L100.0100, L501.4020 ####[facility] [place] [address] [place], [address] Platelets (Bld) [#/Vol] 428 10*3/uL Normal 150-450 [facility] [place] Comment on above: Performed By: #### L 503.6620, L500.2500, L100.0100, L501.4020 ####[facility] [place] [address] [place], [address] RBC (Bld) [#/Vol] 3.61 10*6/uL Low 4.2-5.4 [facility] Comment on above: Performed By: #### L 503.6620, L500.2500, L100.0100, L501.4020 ####[facility] [place] [address] [place], [address] RDW SD 45.0 fl High 35.1-43.9 [facility] [place] Comment on above: Performed By: #### L 503.6620, L500.2500, L100.0100, L501.4020 ####[facility] [place] [address] [place], [address] WBC (Bld) [#/Vol] 9.9 10*3/uL Normal 4.4-11.0 [facility] Comment on above: Performed By: #### L 503.6620, L500.2500, L100.0100, L501.4020 ####[facility] [place] [address] [place], [address] Chest 1 View (Portable)on Chest 1 View (Portable) Normal [facility] Determination of erythrocyte mean corpuscular volume (MCV)Ordered By: Liza Hughes on 01-30-2023 MCV (RBC) [Entitic vol] 88.4 fL 81-99 [facility] Emergency Department Summary on 01-30-2023 Emergency Department Summary Normal [facility] [place] Hematocrit Auto (Bld) [Volum e fraction]Ordered By: Liza Hughes on 01-30-2023 Hematocrit (Bld) [Volume fraction] 31.9 % 37-47 [facility] [place] L501.4020on 01-30-2023 TROPONIN-I HS 18 pg/mL Normal 3.0-54.0 [facility] [place] Comment on above: Order Comment: 'TROP ' Serial specimen #1, #2 or #3: 1 Result Comment: Miles monte Note: New Test Units and Gender Specific Reference Ranges. For more information see Policy Stat Procedure [place] High Sensitivity Troponin (TNIH) and attachments. Performed By: #### L 503.6620, L500.2500, L100.0100, L501.4020 ####[facility] [place] [address] [place], [place], [id number] Laboratory - Chemistry and C hemistry - challengeOrdered By: Liza Hughes on 01-30-2023 CO2 [Moles/Vol] 23.0 mmol/L 21.0-32.0 [facility] [place] Natriuretic peptide B (Bld) [Mass/Vol] 91.1 pg/mL 0-100 [facility] [place] Urea nitrogen/Creatinine [Mass ratio] 26.7 mg/mg 10-20 [facility] [place] Laboratory - Hematology and Cell countsOrdered By: Liza Hughes on 01-30-2023 Erythrocyte distribution width (RBC) [Entitic vol] 45.0 fL 35.1-43.9 [facility] [place] Erythrocyte distribution width (RBC) [Ratio] 13.8 % 11.6-14.6 [facility] [place] Immature granulocytes/100 WBC (Bld) 0.300 % 0.0-0.9 [facility] [place] Comment on above: IG% - Immature Granu locytes (promyelocytes, myelocytes and metamyelocytes) > 1% indicates that a LEFT SHIFT is Present. MCH (RBC) [Entitic mass] 27.1 pg 27.0-32.0 [facility] [place] Nucleated RBC/100 WBC (Bld) [Ratio] 0 % 0-5 [facility] [place] MCHC Auto (RBC) [Mass/Vol]Or dered By: Liza Hughes on 01-30-2023 MCHC (RBC) [Mass/Vol] 30.7 g/dL 32-36 [facility] No Panel InformationOrdered By: Liza Hughes on 01-30-2023 Estimated Creatinine Clearance Calc 53.97 ml/min [facility] [place] Estimated GFR (MDRD) Amer 72 mL/min >60 [facility] [place] Comment on above: GFR Calc Estimated GFR (MDRD) Non-Af Amer 59 mL/min >60 [facility] [place] Comment on above: Non- GFR Calc Troponin I High Sensitivity 18 pg/mL 3.0-54.0 [facility] [place] Comment on above: Please Note: New Rim[place] t Units and Gender Specific Reference Ranges. For more information see Policy Stat Procedure [place] High Sensitivity Troponin (TNIH) and attachments. Platelets bldOrdered By: Dori Hughes on 01-30-2023 Platelets (Bld) [#/Vol] 428 10*3/uL 150-450 [facility] [place] Serum or plasma calcium cortez urement (mass/volume)Ordered By: Liza Hughes on 01-30-2023 Calcium [Mass/Vol] 9.3 mg/dL 8.5-10.1 [facility] Serum or plasma creatinine m easurement (mass/volume)Ordered By: Liza Hughes on 01-30-2023 Creatinine [Mass/Vol] 1.01 mg/dL 0.55-1.02 [facility] Comment on above: The validity of the calculated GFR & GFRAA in patients over 70 years has not been determined. Clinical correlation is essential. Serum or plasma urea nitroge n measurement (mass/volume)Ordered By: Liza Hughes on 01-30-2023 Urea nitrogen [Mass/Vol] 27 mg/dL 7-18 [facility] [place] Thin prep Papanicolaou smear with manual screeningOrdered By: Liza Hughes on 01-30-2023 Thin prep Papanicolaou smear with manual screening 4 5-15 [facility] [place] CTA Chest W/WO Contraston CTA Chest W/WO Contrast Normal [facility] Urinalysis, Completeon 01-24 EPI,SQUAMOUS 0-5 SEEN Normal 5-10 [facility] [place] Comment on above: Order Comment: CLEAN CATCH Performed By: #### L 400.0001 ####[facility] [place] [address] [place], [address] RBC 0-5 SEEN Normal 0-5 [facility] [place] Comment on above: Order Comment: CLEAN CATCH Performed By: #### L 400.0001 ####[facility] [place] [address] [place], [address] WBC 5-10 SEEN Normal 0-5 [facility] [place] Comment on above: Order Comment: CLEAN CATCH Performed By: #### L 400.0001 ####[facility] [place] [address] [place], [address] BACTERIA 0 SEEN Normal None Seen [facility] [place] Comment on above: Order Comment: CLEAN CATCH Performed By: #### L 400.0001 ####[facility] [place] [address] [place], [address] Mucus Ql (Urine sed) 0 SEEN Normal [facility] Comment on above: Order Comment: CLEAN CATCH Performed By: #### L 400.0001 ####[facility] [place] [address] [place], [address] 12 Lead EKGon 01-23-2023 12 Lead EKG Normal [facility] [place] Absolute lymphocyte countOrd ered By: Harjit Vee on 01-23-2023 Lymphocytes Auto (Unsp spec) [#/Vol] 2.31 10*3/uL 0.83-4.51 [facility] [place] Basic Metabolic Profile (BMP )on 01-23-2023 BUN/CRE 26.4 RATIO High 10-20 [facility] [place] Comment on above: Order Comment: 'TROP ' Serial specimen #1, #2 or #3: 1 Performed By: #### L 501.4020, L500.2500, L100.0100 ####[facility] [place] [address] [place], [address] CA,Total 9.0 mg/dL Normal 8.5-10.1 [facility] [place] Comment on above: Order Comment: 'TROP ' Serial specimen #1, #2 or #3: 1 Performed By: #### L 501.4020, L500.2500, L100.0100 ####[facility] [place] [address] [place], [address] Chloride [Moles/Vol] 102 mmol/L Normal 98-107 [facility] Comment on above: Order Comment: 'TROP ' Serial specimen #1, #2 or #3: 1 Performed By: #### L 501.4020, L500.2500, L100.0100 ####[facility] [place] [address] [place], [address] CO2 [Moles/Vol] 26.0 mmol/L Normal 21.0-32.0 [facility] [place] Comment on above: Order Comment: 'TROP ' Serial specimen #1, #2 or #3: 1 Performed By: #### L 501.4020, L500.2500, L100.0100 ####[facility] [place] [address] [place], [address] Creatinine [Mass/Vol] 1.21 mg/dL High 0.55-1.02 [facility] Comment on above: Order Comment: 'TROP ' Serial specimen #1, #2 or #3: 1 Result Comment: The validity of the calculated GFR GFRAA in patients over70 years has not been determined. Clinical correlation isessential. Performed By: #### L 501.4020, L500.2500, L100.0100 ####[facility] [place] [address] [place], [address] ECRCL 45.05 ml/min Normal [facility] [place] Comment on above: Order Comment: 'TROP ' Serial specimen #1, #2 or #3: 1 Performed By: #### L 501.4020, L500.2500, L100.0100 ####[facility] [place] [address] [place], [address] EST GFR - AA 58 mL/min Low >60 [facility] [place] Comment on above: Order Comment: 'TROP ' Serial specimen #1, #2 or #3: 1 Result Comment: Afri can Hungarian GFR Calc Performed By: #### L 501.4020, L500.2500, L100.0100 ####[facility] [place] [address] [place], [address] GAP 5 Normal 5-15 [facility] [place] Comment on above: Order Comment: 'TROP ' Serial specimen #1, #2 or #3: 1 Performed By: #### L 501.4020, L500.2500, L100.0100 ####[facility] [place] [address] [place], [address] GFR/1.73 sq M.predicted among non-blacks MDRD (S/P/Bld) [Vol rate/Area] 48 mL/min/{1.73_m2} Low >60 [facility] Comment on above: Order Comment: 'TROP ' Serial specimen #1, #2 or #3: 1 Result Comment: Non- GFR Calc Performed By: #### L 501.4020, L500.2500, L100.0100 ####[facility] [address] [place], [address] Glucose [Mass/Vol] 386 mg/dL High 74-106 [facility] Comment on above: Order Comment: 'TROP ' Serial specimen #1, #2 or #3: 1 Result Comment: Gluc ose result greater than or equal to 200 mg/dLsuggests DIABETES MELLITUS per A.D.A. criteria. Performed By: #### L 501.4020, L500.2500, L100.0100 ####[facility] [address] [place], [address] Potassium [Moles/Vol] 4.4 mmol/L Normal 3.5-5.1 [facility] Comment on above: Order Comment: 'TROP ' Serial specimen #1, #2 or #3: 1 Performed By: #### L 501.4020, L500.2500, L100.0100 ####[facility] [place] [address] [place], [address] Sodium [Moles/Vol] 133 mmol/L Low 136-145 [facility] Comment on above: Order Comment: 'TROP ' Serial specimen #1, #2 or #3: 1 Performed By: #### L 501.4020, L500.2500, L100.0100 ####[facility] [place] [address] [place], [address] Urea nitrogen [Mass/Vol] 32 mg/dL High 7-18 [facility] [place] Comment on above: Order Comment: 'TROP ' Serial specimen #1, #2 or #3: 1 Performed By: #### L 501.4020, L500.2500, L100.0100 ####[facility] [place] [address] [place], [address] Basophil percentageOrdered B y: Harjit Vee on 01-23-2023 Basophil percentage 5-10 SEEN /hpf 0-5 [facility] Basophils/100 WBC (Bld) 0.8 % 0-1 [facility] Chloride [Moles/Vol] 102 mmol/L 98-107 [facility] Eosinophils/100 WBC (Bld) 1.1 % 0-5 [facility] [place] Glucose [Mass/Vol] 386 mg/dL 74-106 [facility] Comment on above: Glucose result great er than or equal to 200 mg/dLsuggests DIABETES MELLITUS per A.D.A. criteria. Neutrophils (Bld) [#/Vol] 9.1 10*3/uL 2.0-7.7 [facility] Neutrophils/100 WBC (Bld) 73.0 % 47-70 [facility] Potassium [Moles/Vol] 4.4 mmol/L 3.5-5.1 [facility] Sodium [Moles/Vol] 133 mmol/L 136-145 [facility] WBC (Bld) [#/Vol] 12.5 10*3/uL 4.4-11.0 [facility] Bilirubin Test strip Ql (U)O rdered By: Harjit Vee on 01-23-2023 Bilirubin Ql (U) Negative Negative [facility] [place] Blood erythrocytes count (nu mber/volume)Ordered By: Harjit Vee on 01-23-2023 RBC (Bld) [#/Vol] 3.65 10*6/uL 4.2-5.4 [facility] Blood hemoglobin measurement (mass/volume)Ordered By: Harjit Vee on 01-23-2023 Hemoglobin (Bld) [Mass/Vol] 10.1 g/dL 12.0-15.0 [facility] [place] Blood lymphocytes/100 leukoc ytesOrdered By: Hrajit Vee on 01-23-2023 Lymphocytes/100 WBC (Bld) 18.5 % 19-41 [facility] Blood monocytes/100 leukocyt esOrdered By: Harjit Vee on 01-23-2023 Monocytes/100 WBC (Bld) 6.3 % 0-10 [facility] Blood platelet mean volumeOr dered By: Harjit Vee on 01-23-2023 Platelet mean volume (Bld) [Entitic vol] 9.2 fL 6.2-12.0 [facility] CBC W/Diff, Automatedon - Absolute Lymph 2.31 X10 3/uL Normal 0.83-4.51 [facility] Comment on above: Performed By: #### L 501.4020, L500.2500, L100.0100 ####[facility] [address] [place], [address] Absolute Neut 9.1 X10 3/uL High 2.0-7.7 [facility] [place] Comment on above: Performed By: #### L 501.4020, L500.2500, L100.0100 ####[facility] [address] [place], [address] Basophils/100 WBC (Bld) 0.8 % Normal 0-1 [facility] Comment on above: Performed By: #### L 501.4020, L500.2500, L100.0100 ####[facility] [place] [address] [place], [address] Eosinophils/100 WBC (Bld) 1.1 % Normal 0-5 [facility] Comment on above: Performed By: #### L 501.4020, L500.2500, L100.0100 ####[facility] [place] [address] [place], [address] Erythrocyte distribution width (RBC) [Ratio] 13.9 % Normal 11.6-14.6 [facility] [place] Comment on above: Performed By: #### L 501.4020, L500.2500, L100.0100 ####[facility] [address] [place], [address] Hematocrit (Bld) [Volume fraction] 32.2 % Low 37-47 [facility] [place] Comment on above: Performed By: #### L 501.4020, L500.2500, L100.0100 ####[facility] [place] [address] [place], [address] Hemoglobin (Bld) [Mass/Vol] 10.1 g/dL Low 12.0-15.0 [facility] Comment on above: Performed By: #### L 501.4020, L500.2500, L100.0100 ####[facility] [address] [place], [address] IG% 0.300 Normal 0.0-0.9 [facility] Comment on above: Result Comment: IG% - Immature Granulocytes (promyelocytes, myelocytes andmetamyelocytes) > 1% indicates that a LEFT SHIFT is Present. Performed By: #### L 501.4020, L500.2500, L100.0100 ####[facility] [address] [place], [address] Lymphocytes/100 WBC (Bld) 18.5 % Low 19-41 [facility] Comment on above: Performed By: #### L 501.4020, L500.2500, L100.0100 ####[facility] [address] [place], [address] MCH (RBC) [Entitic mass] 27.7 pg Normal 27.0-32.0 [facility] Comment on above: Performed By: #### L 501.4020, L500.2500, L100.0100 ####[facility] [address] [place], [address] MCHC (RBC) [Mass/Vol] 31.4 g/dL Low 32-36 [facility] Comment on above: Performed By: #### L 501.4020, L500.2500, L100.0100 ####[facility] [address] [place], [address] MCV (RBC) [Entitic vol] 88.2 fL Normal 81-99 [facility] Comment on above: Performed By: #### L 501.4020, L500.2500, L100.0100 ####[facility] [address] [place], [address] Monocytes/100 WBC (Bld) 6.3 % Normal 0-10 [facility] Comment on above: Performed By: #### L 501.4020, L500.2500, L100.0100 ####[facility] [address] [place], [address] Neutrophils/100 WBC (Bld) 73.0 % High 47-70 [facility] Comment on above: Performed By: #### L 501.4020, L500.2500, L100.0100 ####[facility] [address] [place], [address] Nucleated RBC (Bld) [#/Vol] 0 10*3/uL Normal 0-5 [facility] Comment on above: Performed By: #### L 501.4020, L500.2500, L100.0100 ####[facility] [address] [place], [address] Platelet mean volume (Bld) [Entitic vol] 9.2 fL Normal 6.2-12.0 [facility] Comment on above: Performed By: #### L 501.4020, L500.2500, L100.0100 ####[facility] [address] [place], [address] Platelets (Bld) [#/Vol] 408 10*3/uL Normal 150-450 [facility] Comment on above: Performed By: #### L 501.4020, L500.2500, L100.0100 ####[facility] [address] [place], [address] RBC (Bld) [#/Vol] 3.65 10*6/uL Low 4.2-5.4 [facility] Comment on above: Performed By: #### L 501.4020, L500.2500, L100.0100 ####[facility] [address] [place], [address] RDW SD 44.5 fl High 35.1-43.9 [facility] [place] Comment on above: Performed By: #### L 501.4020, L500.2500, L100.0100 ####[facility] [address] [place], [address] WBC (Bld) [#/Vol] 12.5 10*3/uL High 4.4-11.0 [facility] Comment on above: Performed By: #### L 501.4020, L500.2500, L100.0100 ####[facility] [address] [place], [address] Chest 1 View (Portable)on Chest 1 View (Portable) Normal [facility] D-Dimer Quantitative (DVT/PE )on 01-23-2023 D-DIMER QUANT 1.63 FEU/ug/m Invalid Interpretation Code 0.27-0.49 [facility] [place] Comment on above: Result Comment: D-Di hyacinth ELEVATED (>0.49): Additional studies and clinicalassessments are indicated to conclude diagnosis of:Deep Vein Thrombosis (DVT) or Pulmonary Embolism (PE)CRITICAL VALUE VERIFIED. CALLED TO CLEMENT MAXWELL03/26/22 [address]RESULTS READ BACK BY SAME . Performed By: #### L 300.8000 ####[facility] [address] [place], [place], [id number] Determination of erythrocyte mean corpuscular volume (MCV)Ordered By: Harjit Vee on 01-23-2023 MCV (RBC) [Entitic vol] 88.2 fL 81-99 [facility] Emergency Department Summary on 01-23-2023 Emergency Department Summary Normal [facility] Hematocrit Auto (Bld) [Volum e fraction]Ordered By: Harjit Vee on 01-23-2023 Hematocrit (Bld) [Volume fraction] 32.2 % 37-47 [facility] Ketones Test strip Ql (U)Ord ered By: Harjit Vee on 01-23-2023 Ketones Ql (U) Negative Negative [facility] L501.4020on 01-23-2023 TROPONIN-I HS 8 pg/mL Normal 3.0-54.0 [facility] Comment on above: Order Comment: 'TROP ' Serial specimen #1, #2 or #3: 1 Result Comment: Plea se Note: New Test Units and Gender Specific Reference Ranges. For more information see Policy Stat Procedure [place] High Sensitivity Troponin (TNIH) and attachments. Performed By: #### L 501.4020, L500.2500, L100.0100 ####[facility] [address] [place], [place], [id number] Laboratory - Chemistry and C hemistry - challengeOrdered By: Harjit Vee on 01-23-2023 CO2 [Moles/Vol] 26.0 mmol/L 21.0-32.0 [facility] Urea nitrogen/Creatinine [Mass ratio] 26.4 mg/mg 10-20 [facility] Laboratory - Hematology and Cell countsOrdered By: Harjit Vee on 01-23-2023 Erythrocyte distribution width (RBC) [Entitic vol] 44.5 fL 35.1-43.9 [facility] Erythrocyte distribution width (RBC) [Ratio] 13.9 % 11.6-14.6 [facility] Immature granulocytes/100 WBC (Bld) 0.300 % 0.0-0.9 [facility] Comment on above: IG% - Immature Granu locytes (promyelocytes, myelocytes and metamyelocytes) > 1% indicates that a LEFT SHIFT is Present. MCH (RBC) [Entitic mass] 27.7 pg 27.0-32.0 [facility] Nucleated RBC/100 WBC (Bld) [Ratio] 0 % 0-5 [facility] MCHC Auto (RBC) [Mass/Vol]Or dered By: Harjit Vee on 01-23-2023 MCHC (RBC) [Mass/Vol] 31.4 g/dL 32-36 [facility] Mucus LM Ql (Urine sed)Order ed By: Harjit Vee on 01-23-2023 Mucus Ql (Urine sed) 0 SEEN /hpf [facility] Nitrite Test strip Ql (U)Ord ered By: Harjit Vee on 01-23-2023 Nitrite Ql (U) Negative Negative [facility] No Panel InformationOrdered By: Harjit Vee on 01-23-2023 D-Dimer Quantitative (PE/DVT) 1.63 FEU/ug/m 0.27-0.49 [facility] Comment on above: D-Dimer ELEVATED (>0 .49): Additional studies and clinicalassessments are indicated to conclude diagnosis of:Deep Vein Thrombosis (DVT) or Pulmonary Embolism (PE)CRITICAL VALUE VERIFIED. CALLED TO CLEMENT LAW03/26/22 [address].RESULTS READ BACK BY SAME . Estimated Creatinine Clearance Calc 45.05 ml/min [facility] Estimated GFR (MDRD) Amer 58 mL/min >60 [facility] Comment on above: GFR Calc Estimated GFR (MDRD) Non-Af Amer 48 mL/min >60 [facility] Comment on above: Non- GFR Calc Troponin I High Sensitivity 8 pg/mL 3.0-54.0 [facility] Comment on above: Please Note: New [place] t Units and Gender Specific Reference Ranges. For more information see Policy Stat Procedure [place] High Sensitivity Troponin (TNIH) and attachments. Platelets bldOrdered By: Severiano Vee on 01-23-2023 Platelets (Bld) [#/Vol] 408 10*3/uL 150-450 [facility] Protein Test strip Ql (U)Ord ered By: Harjit Vee on 01-23-2023 Protein Ql (U) 30 mg/dl Negative [facility] Serum or plasma calcium cortez urement (mass/volume)Ordered By: Harjit Vee on 01-23-2023 Calcium [Mass/Vol] 9.0 mg/dL 8.5-10.1 [facility] Serum or plasma creatinine m easurement (mass/volume)Ordered By: Harjit Vee on 01-23-2023 Creatinine [Mass/Vol] 1.21 mg/dL 0.55-1.02 [facility] Comment on above: The validity of the calculated GFR & GFRAA in patients over 70 years has not been determined. Clinical correlation is essential. Serum or plasma urea nitroge n measurement (mass/volume)Ordered By: Harjit Vee on 01-23-2023 Urea nitrogen [Mass/Vol] 32 mg/dL 7-18 [facility] Squamous epithelial cells de tection in urine sediment by light microscopyOrdered By: Harjit Vee on 01-23-2023 Epithelial cells.squamous LM Ql (Urine sed) 0-5 SEEN /hpf 5-10 [facility] Thin prep Papanicolaou smear with manual screeningOrdered By: Harjit Vee on 01-23-2023 Thin prep Papanicolaou smear with manual screening 5 5-15 [facility] Urine blood detectionOrdered By: Harjit Vee on 01-23-2023 RBC Ql (U) 10 /ul Negative [facility] RBC Ql (U) 0-5 SEEN /hpf 0-5 [facility] Urine clarityOrdered By: Severiano Vee on 01-23-2023 Clarity (U) Clear Clear [facility] [facility] [place] Urine color determinationOrd ered By: Harjit Vee on 01-23-2023 Color (U) Yellow Yellow [facility] [place] Urine glucose detectionOrder ed By: Harjit Vee on 01-23-2023 Glucose Ql (U) 1000 mg/dl Normal [facility] [place] Urine leukocyte esterase det ection by dipstickOrdered By: Harjit Vee on 01-23-2023 Leukocyte esterase Test strip Ql (U) 25 /ul Negative [facility] [place] Urine pHOrdered By: Harjit walker on 01-23-2023 pH (U) 5.0 [pH] 5.0 - 8.0 [facility] [place] Urine sediment bacteria coun t by microscopy (number/high power field)Ordered By: Harjit Vee on 01-23-2023 Bacteria LM.HPF (Urine sed) [#/Area] 0 /[HPF] None Seen [facility] [place] Urine specific gravity measu rementOrdered By: Harjit Vee on 01-23-2023 Specific gravity (U) [Rel density] 1.025 1.002-1.030 [facility] [place] Urobilinogen Auto test strip Ql (U)Ordered By: Harjit Vee on 01-23-2023 Urobilinogen Ql (U) Normal mg/dl Normal [facility] Comprehensive Metabolic Prof ilon 01-15-2023 ALB Normal 3.2-5.0 [facility] [place] Comment on above: Result Comment: Canc elled via OM: Order cancelled - Patient discharged Performed By: #### L 500.4050 ####[facility] [place] [address] [place], [address] ALK P Normal 45-117 [facility] [place] Comment on above: Result Comment: Canc elled via OM: Order cancelled - Patient discharged Performed By: #### L 500.4050 ####[facility] [place] [address] [place], [address] ALT Normal 13-56 [facility] [place] Comment on above: Result Comment: Canc elled via OM: Order cancelled - Patient discharged Performed By: #### L 500.4050 ####[facility] [place] [address] [place], [address] AST Normal 15-37 [facility] [place] Comment on above: Result Comment: Canc elled via OM: Order cancelled - Patient discharged Performed By: #### L 500.4050 ####[facility] [place] [address] [place], [address] BUN Normal 7-18 [facility] [place] Comment on above: Result Comment: Canc elled via OM: Order cancelled - Patient discharged Performed By: #### L 500.4050 ####[facility] [place] [address], [address] BUN/CRE Normal 10-20 [facility] [place] Comment on above: Result Comment: Canc elled via OM: Order cancelled - Patient discharged Performed By: #### L 500.4050 ####[facility] [place] [address] [place], [address] CA,Total Normal 8.5-10.1 [facility] [place] Comment on above: Result Comment: Canc elled via OM: Order cancelled - Patient discharged Performed By: #### L 500.4050 ####[facility] [place] [address] [place], [address] CL Normal 98-107 [facility] [place] Comment on above: Result Comment: Canc elled via OM: Order cancelled - Patient discharged Performed By: #### L 500.4050 ####[facility] [place] [address] [place], [address] CO2 Normal 21.0-32.0 [facility] [place] Comment on above: Result Comment: Canc elled via OM: Order cancelled - Patient discharged Performed By: #### L 500.4050 ####[facility] [place] [address] [place], [address] CREAT,SERUM Normal 0.55-1.02 [facility] [place] Comment on above: Result Comment: Canc elled via OM: Order cancelled - Patient discharged Performed By: #### L 500.4050 ####[facility] [place] [address] [place], [address] EST GFR Normal >60 [facility] [place] Comment on above: Result Comment: Canc elled via OM: Order cancelled - Patient discharged Performed By: #### L 500.4050 ####[facility] [place] [address], [address] EST GFR - AA Normal >60 [facility] [place] Comment on above: Result Comment: Canc elled via OM: Order cancelled - Patient discharged Performed By: #### L 500.4050 ####[facility] [place] [address] [place], [address] GAP Normal 5-15 [facility] [place] Comment on above: Result Comment: Canc elled via OM: Order cancelled - Patient discharged Performed By: #### L 500.4050 ####[facility] [place] [address] [place], [address] GLU Normal 74-106 [facility] [place] Comment on above: Result Comment: Canc elled via OM: Order cancelled - Patient discharged Performed By: #### L 500.4050 ####[facility] [place] [address] [place], [address] Potassium Normal 3.5-5.1 [facility] [place] Comment on above: Result Comment: Canc elled via OM: Order cancelled - Patient discharged Performed By: #### L 500.4050 ####[facility] [place] [address] [place], [address] T BILI Normal 0.20-1.00 [facility] [place] Comment on above: Result Comment: Canc elled via OM: Order cancelled - Patient discharged Performed By: #### L 500.4050 ####[facility] [place] [address] [place], [address] T PROT Normal 6.4-8.2 [facility] [place] Comment on above: Result Comment: Canc elled via OM: Order cancelled - Patient discharged Performed By: #### L 500.4050 ####[facility] [place] [address] [place], [address] Comprehensive Metabolic Profil Normal 136-145 [facility] [place] Comment on above: Result Comment: Canc elled via OM: Order cancelled - Patient discharged Performed By: #### L 500.4050 ####[facility] [place] [address] [place], [address] Comprehensive Metabolic Prof ilon 01-14-2023 ALB Normal 3.2-5.0 [facility] [place] Comment on above: Result Comment: Canc elled via OM: Order cancelled - Patient discharged Performed By: #### L 500.4050 ####[facility] [place] [address] [place], [address] ALK P Normal 45-117 [facility] [place] Comment on above: Result Comment: Canc elled via OM: Order cancelled - Patient discharged Performed By: #### L 500.4050 ####[facility] [place] [address] [place], [address] ALT Normal 13-56 [facility] [place] Comment on above: Result Comment: Canc elled via OM: Order cancelled - Patient discharged Performed By: #### L 500.4050 ####[facility] [place] [address] [place], [address] AST Normal 15-37 [facility] [place] Comment on above: Result Comment: Canc elled via OM: Order cancelled - Patient discharged Performed By: #### L 500.4050 ####[facility] [place] [address] [place], [address] BUN Normal 7-18 [facility] [place] Comment on above: Result Comment: Canc elled via OM: Order cancelled - Patient discharged Performed By: #### L 500.4050 ####[facility] [place] [address] [place], [address] BUN/CRE Normal 10-20 [facility] [place] Comment on above: Result Comment: Canc elled via OM: Order cancelled - Patient discharged Performed By: #### L 500.4050 ####[facility] [place] [address] [place], [address] CA,Total Normal 8.5-10.1 [facility] [place] Comment on above: Result Comment: Canc elled via OM: Order cancelled - Patient discharged Performed By: #### L 500.4050 ####[facility] [place] [address] [place], [address] CL Normal 98-107 [facility] [place] Comment on above: Result Comment: Canc elled via OM: Order cancelled - Patient discharged Performed By: #### L 500.4050 ####[facility] [place] [address] [place], [address] CO2 Normal 21.0-32.0 [facility] [place] Comment on above: Result Comment: Canc elled via OM: Order cancelled - Patient discharged Performed By: #### L 500.4050 ####[facility] [place] [address] [place], [address] CREAT,SERUM Normal 0.55-1.02 [facility] [place] Comment on above: Result Comment: Canc elled via OM: Order cancelled - Patient discharged Performed By: #### L 500.4050 ####[facility] [place] [address] [place], [address] EST GFR Normal >60 [facility] [place] Comment on above: Result Comment: Canc elled via OM: Order cancelled - Patient discharged Performed By: #### L 500.4050 ####[facility] [place] [address] [place], [address] EST GFR - AA Normal >60 [facility] [place] Comment on above: Result Comment: Canc elled via OM: Order cancelled - Patient discharged Performed By: #### L 500.4050 ####[facility] [place] [address] [place], [address] GAP Normal 5-15 [facility] [place] Comment on above: Result Comment: Canc elled via OM: Order cancelled - Patient discharged Performed By: #### L 500.4050 ####[facility] [place] [address] [place], [address] GLU Normal 74-106 [facility] [place] Comment on above: Result Comment: Canc elled via OM: Order cancelled - Patient discharged Performed By: #### L 500.4050 ####[facility] [place] [address] [place], [address] Potassium Normal 3.5-5.1 [facility] [place] Comment on above: Result Comment: Canc elled via OM: Order cancelled - Patient discharged Performed By: #### L 500.4050 ####[facility] [place] [address] [place], [address] T BILI Normal 0.20-1.00 [facility] [place] Comment on above: Result Comment: Canc elled via OM: Order cancelled - Patient discharged Performed By: #### L 500.4050 ####[facility] [place] [address] [place], [address] T PROT Normal 6.4-8.2 [facility] [place] Comment on above: Result Comment: Canc elled via OM: Order cancelled - Patient discharged Performed By: #### L 500.4050 ####[facility] [place] [address] [place], [address] Comprehensive Metabolic Profil Normal 136-145 [facility] [place] Comment on above: Result Comment: Canc elled via OM: Order cancelled - Patient discharged Performed By: #### L 500.4050 ####[facility] [place] [address] [place], [address] CBC W/Diff, Automatedon 12-0 -2022 Absolute Neut Normal 2.0-7.7 [facility] [place] Comment on above: Result Comment: Canc elled via OM: Order cancelled - Patient discharged Performed By: #### L 100.0100, L500.2500 ####[facility] [place] [address] [place], [address] HCT Normal 37-47 [facility] [place] Comment on above: Result Comment: Canc elled via OM: Order cancelled - Patient discharged Performed By: #### L 100.0100, L500.2500 ####[facility] [place] [address] [place], [address] HGB Normal 12.0-15.0 [facility] [place] Comment on above: Result Comment: Canc elled via OM: Order cancelled - Patient discharged Performed By: #### L 100.0100, L500.2500 ####[facility] [place] [address] [place], [address] MCH Normal 27.0-32.0 [facility] [place] Comment on above: Result Comment: Canc elled via OM: Order cancelled - Patient discharged Performed By: #### L 100.0100, L500.2500 ####[facility] [place] [address] [place], [address] MCHC Normal 32-36 [facility] [place] Comment on above: Result Comment: Canc elled via OM: Order cancelled - Patient discharged Performed By: #### L 100.0100, L500.2500 ####[facility] [place] [address] [place], [address] MCV Normal 81-99 [facility] [place] Comment on above: Result Comment: Canc elled via OM: Order cancelled - Patient discharged Performed By: #### L 100.0100, L500.2500 ####[facility] [place] [address] [place], [address] NEUT% Normal 47-70 [facility] [place] Comment on above: Result Comment: Canc elled via OM: Order cancelled - Patient discharged Performed By: #### L 100.0100, L500.2500 ####[facility] [place] [address] [place], [address] PLT Normal 150-450 [facility] [place] Comment on above: Result Comment: Canc elled via OM: Order cancelled - Patient discharged Performed By: #### L 100.0100, L500.2500 ####[facility] [place] [address] [place], [address] RBC Normal 4.2-5.4 [facility] [place] Comment on above: Result Comment: Canc elled via OM: Order cancelled - Patient discharged Performed By: #### L 100.0100, L500.2500 ####[facility] [place] [address] [place], [address] RDW CV Normal 11.6-14.6 [facility] [place] Comment on above: Result Comment: Canc elled via OM: Order cancelled - Patient discharged Performed By: #### L 100.0100, L500.2500 ####[facility] [place] [address] [place], [address] RDW SD Normal 35.1-43.9 [facility] [place] Comment on above: Result Comment: Canc elled via OM: Order cancelled - Patient discharged Performed By: #### L 100.0100, L500.2500 ####[facility] [place] [address] [place], [address] WBC Normal 4.4-11.0 [facility] [place] Comment on above: Result Comment: Canc elled via OM: Order cancelled - Patient discharged Performed By: #### L 100.0100, L500.2500 ####[facility] [place] [address] [place], [address] Comprehensive Metabolic Prof ilon 01-13-2023 ALB Normal 3.2-5.0 [facility] [place] Comment on above: Result Comment: Canc elled via OM: Order cancelled - Patient discharged Performed By: #### L 500.4050 ####[facility] [place] [address] [place], [address] ALK P Normal 45-117 [facility] [place] Comment on above: Result Comment: Canc elled via OM: Order cancelled - Patient discharged Performed By: #### L 500.4050 ####[facility] [place] [address] [place], [address] ALT Normal 13-56 [facility] [place] Comment on above: Result Comment: Canc elled via OM: Order cancelled - Patient discharged Performed By: #### L 500.4050 ####[facility] [place] [address] [place], [address] AST Normal 15-37 [facility] [place] Comment on above: Result Comment: Canc elled via OM: Order cancelled - Patient discharged Performed By: #### L 500.4050 ####[facility] [place] [address] [place], [address] BUN Normal 7-18 [facility] [place] Comment on above: Result Comment: Canc elled via OM: Order cancelled - Patient discharged Performed By: #### L 500.4050 ####[facility] [place] [address] [place], [address] Result Comment: Canc elled via OM: MD Ordered Performed By: #### L 100.0100, L500.2500 ####[facility] [place] [address] [place], [address] BUN/CRE Normal 10-20 [facility] [place] Comment on above: Result Comment: Canc elled via OM: Order cancelled - Patient discharged Performed By: #### L 500.4050 ####[facility] [place] [address] [place], [address] Result Comment: Canc elled via OM: MD Ordered Performed By: #### L 100.0100, L500.2500 ####[facility] [place] [address] [place], [address] CA,Total Normal 8.5-10.1 [facility] [place] Comment on above: Result Comment: Canc elled via OM: Order cancelled - Patient discharged Performed By: #### L 500.4050 ####[facility] [place] [address] [place], [address] Result Comment: Canc elled via OM: MD Ordered Performed By: #### L 100.0100, L500.2500 ####[facility] [place] [address] [place], [address] CL Normal 98-107 [facility] [place] Comment on above: Result Comment: Canc elled via OM: Order cancelled - Patient discharged Performed By: #### L 500.4050 ####[facility] [place] [address] [place], [address] Result Comment: Canc elled via OM: MD Ordered Performed By: #### L 100.0100, L500.2500 ####[facility] [place] [address] [place], [address] CO2 Normal 21.0-32.0 [facility] [place] Comment on above: Result Comment: Canc elled via OM: Order cancelled - Patient discharged Performed By: #### L 500.4050 ####[facility] [place] [address] [place], [address] Result Comment: Canc elled via OM: MD Ordered Performed By: #### L 100.0100, L500.2500 ####[facility] [place] [address] [place], [address] CREAT,SERUM Normal 0.55-1.02 [facility] [place] Comment on above: Result Comment: Canc elled via OM: Order cancelled - Patient discharged Performed By: #### L 500.4050 ####[facility] [place] [address] [place], [address] Result Comment: Canc elled via OM: MD Ordered Performed By: #### L 100.0100, L500.2500 ####[facility] [place] [address] [place], [address] EST GFR Normal >60 [facility] [place] Comment on above: Result Comment: Canc elled via OM: Order cancelled - Patient discharged Performed By: #### L 500.4050 ####[facility] [place] [address] [place], [address] Result Comment: Canc elled via OM: MD Ordered Performed By: #### L 100.0100, L500.2500 ####[facility] [place] [address] [place], [address] EST GFR - AA Normal >60 [facility] [place] Comment on above: Result Comment: Canc elled via OM: Order cancelled - Patient discharged Performed By: #### L 500.4050 ####[facility] [place] [address] [place], [address] Result Comment: Canc elled via OM: MD Ordered Performed By: #### L 100.0100, L500.2500 ####[facility] [place] [address] [place], [address] GAP Normal 5-15 [facility] [place] Comment on above: Result Comment: Canc elled via OM: Order cancelled - Patient discharged Performed By: #### L 500.4050 ####[facility] [place] [address] [place], [address] Result Comment: Canc elled via OM: MD Ordered Performed By: #### L 100.0100, L500.2500 ####[facility] [place] [address] [place], [address] GLU Normal 74-106 [facility] [place] Comment on above: Result Comment: Canc elled via OM: Order cancelled - Patient discharged Performed By: #### L 500.4050 ####[facility] [place] [address] [place], [address] Result Comment: Canc elled via OM: MD Ordered Performed By: #### L 100.0100, L500.2500 ####[facility] [place] [address] [place], [address] Potassium Normal 3.5-5.1 [facility] [place] Comment on above: Result Comment: Canc elled via OM: Order cancelled - Patient discharged Performed By: #### L 500.4050 ####[facility] [place] [address] [place], [address] Result Comment: Canc elled via OM: MD Ordered Performed By: #### L 100.0100, L500.2500 ####[facility] [place] [address] [place], [address] T BILI Normal 0.20-1.00 [facility] [place] Comment on above: Result Comment: Canc elled via OM: Order cancelled - Patient discharged Performed By: #### L 500.4050 ####[facility] [place] [address] [place], [address] T PROT Normal 6.4-8.2 [facility] [place] Comment on above: Result Comment: Canc elled via OM: Order cancelled - Patient discharged Performed By: #### L 500.4050 ####[facility] [place] [address] [place], [address] Comprehensive Metabolic Profil Normal 136-145 [facility] [place] Comment on above: Result Comment: Canc elled via OM: Order cancelled - Patient discharged Performed By: #### L 500.4050 ####[facility] [place] [address] [place], [address] Result Comment: Canc elled via OM: MD Ordered Performed By: #### L 100.0100, L500.2500 ####[facility] [place] [address] [place], [address] Culture, Blood (WB)on 2022 CUB No growth in 5 days. Normal [facility] Comment on above: Performed By: #### M 200.1000 ####[facility] [place] [address] [place], [address] CBC W/Diff, Automatedon 12-0 Absolute Neut Normal 2.0-7.7 [facility] [place] Comment on above: Result Comment: Canc elled via OM: Order cancelled - Patient discharged Performed By: #### L 100.0100, L500.2500 ####[facility] [place] [address] [place], [address] HCT Normal 37-47 [facility] [place] Comment on above: Result Comment: Canc elled via OM: Order cancelled - Patient discharged Performed By: #### L 100.0100, L500.2500 ####[facility] [place] [address] [place], [address] HGB Normal 12.0-15.0 [facility] [place] Comment on above: Result Comment: Canc elled via OM: Order cancelled - Patient discharged Performed By: #### L 100.0100, L500.2500 ####[facility] [place] [address] [place], [address] MCH Normal 27.0-32.0 [facility] [place] Comment on above: Result Comment: Canc elled via OM: Order cancelled - Patient discharged Performed By: #### L 100.0100, L500.2500 ####[facility] [place] [address] [place], [address] MCHC Normal 32-36 [facility] [place] Comment on above: Result Comment: Canc elled via OM: Order cancelled - Patient discharged Performed By: #### L 100.0100, L500.2500 ####[facility] [place] [address] [place], [address] MCV Normal 81-99 [facility] [place] Comment on above: Result Comment: Canc elled via OM: Order cancelled - Patient discharged Performed By: #### L 100.0100, L500.2500 ####[facility] [place] [address] [place], [address] NEUT% Normal 47-70 [facility] [place] Comment on above: Result Comment: Canc elled via OM: Order cancelled - Patient discharged Performed By: #### L 100.0100, L500.2500 ####[facility] [place] [address] [place], [address] PLT Normal 150-450 [facility] [place] Comment on above: Result Comment: Canc elled via OM: Order cancelled - Patient discharged Performed By: #### L 100.0100, L500.2500 ####[facility] [place] [address] [place], [address] RBC Normal 4.2-5.4 [facility] [place] Comment on above: Result Comment: Canc elled via OM: Order cancelled - Patient discharged Performed By: #### L 100.0100, L500.2500 ####[facility] [place] [address] [place], [address] RDW CV Normal 11.6-14.6 [facility] [place] Comment on above: Result Comment: Canc elled via OM: Order cancelled - Patient discharged Performed By: #### L 100.0100, L500.2500 ####[facility] [place] [address] [place], [address] RDW SD Normal 35.1-43.9 [facility] [place] Comment on above: Result Comment: Canc elled via OM: Order cancelled - Patient discharged Performed By: #### L 100.0100, L500.2500 ####[facility] [place] [address] [place], [address] WBC Normal 4.4-11.0 [facility] [place] Comment on above: Result Comment: Canc elled via OM: Order cancelled - Patient discharged Performed By: #### L 100.0100, L500.2500 ####[facility] [place] [address] [place], [address] Comprehensive Metabolic Prof ilon 01-12-2023 ALB Normal 3.2-5.0 [facility] [place] Comment on above: Result Comment: Canc elled via OM: Order cancelled - Patient discharged Performed By: #### L 500.4050 ####[facility] [place] [address] [place], [address] ALK P Normal 45-117 [facility] [place] Comment on above: Result Comment: Canc elled via OM: Order cancelled - Patient discharged Performed By: #### L 500.4050 ####[facility] [place] [address] [place], [address] ALT Normal 13-56 [facility] [place] Comment on above: Result Comment: Canc elled via OM: Order cancelled - Patient discharged Performed By: #### L 500.4050 ####[facility] [place] [address] [place], [address] AST Normal 15-37 [facility] [place] Comment on above: Result Comment: Canc elled via OM: Order cancelled - Patient discharged Performed By: #### L 500.4050 ####[facility] [place] [address] [place], [address] BUN Normal 7-18 [facility] [place] Comment on above: Result Comment: Canc elled via OM: Order cancelled - Patient discharged Performed By: #### L 500.4050 ####[facility] [place] [address] [place], [address] Result Comment: Canc elled via OM: MD Ordered Performed By: #### L 100.0100, L500.2500 ####[facility] [place] [address] [place], [address] BUN/CRE Normal 10-20 [facility] [place] Comment on above: Result Comment: Canc elled via OM: Order cancelled - Patient discharged Performed By: #### L 500.4050 ####[facility] [place] [address] [place], [address] Result Comment: Canc elled via OM: MD Ordered Performed By: #### L 100.0100, L500.2500 ####[facility] [place] [address] [place], [address] CA,Total Normal 8.5-10.1 [facility] [place] Comment on above: Result Comment: Canc elled via OM: Order cancelled - Patient discharged Performed By: #### L 500.4050 ####[facility] [place] [address] [place], [address] Result Comment: Canc elled via OM: MD Ordered Performed By: #### L 100.0100, L500.2500 ####[facility] [place] [address] [place], [address] CL Normal 98-107 [facility] [place] Comment on above: Result Comment: Canc elled via OM: Order cancelled - Patient discharged Performed By: #### L 500.4050 ####[facility] [place] [address] [place], [address] Result Comment: Canc elled via OM: MD Ordered Performed By: #### L 100.0100, L500.2500 ####[facility] [place] [address] [place], [address] CO2 Normal 21.0-32.0 [facility] [place] Comment on above: Result Comment: Canc elled via OM: Order cancelled - Patient discharged Performed By: #### L 500.4050 ####[facility] [place] [address] [place], [address] Result Comment: Canc elled via OM: MD Ordered Performed By: #### L 100.0100, L500.2500 ####[facility] [place] [address] [place], [address] CREAT,SERUM Normal 0.55-1.02 [facility] [place] Comment on above: Result Comment: Canc elled via OM: Order cancelled - Patient discharged Performed By: #### L 500.4050 ####[facility] [place] [address] [place], [address] Result Comment: Canc elled via OM: MD Ordered Performed By: #### L 100.0100, L500.2500 ####[facility] [place] [address] [place], [address] EST GFR Normal >60 [facility] [place] Comment on above: Result Comment: Canc elled via OM: Order cancelled - Patient discharged Performed By: #### L 500.4050 ####[facility] [place] [address] [place], [address] Result Comment: Canc elled via OM: MD Ordered Performed By: #### L 100.0100, L500.2500 ####[facility] [place] [address] [place], [address] EST GFR - AA Normal >60 [facility] [place] Comment on above: Result Comment: Canc elled via OM: Order cancelled - Patient discharged Performed By: #### L 500.4050 ####[facility] [place] [address] [place], [address] Result Comment: Canc elled via OM: MD Ordered Performed By: #### L 100.0100, L500.2500 ####[facility] [place] [address] [place], [address] GAP Normal 5-15 [facility] [place] Comment on above: Result Comment: Canc elled via OM: Order cancelled - Patient discharged Performed By: #### L 500.4050 ####[facility] [place] [address] [place], [address] Result Comment: Canc elled via OM: MD Ordered Performed By: #### L 100.0100, L500.2500 ####[facility] [place] [address] [place], [address] GLU Normal 74-106 [facility] [place] Comment on above: Result Comment: Canc elled via OM: Order cancelled - Patient discharged Performed By: #### L 500.4050 ####[facility] [place] [address] [place], [address] Result Comment: Canc elled via OM: MD Ordered Performed By: #### L 100.0100, L500.2500 ####[facility] [place] [address] [place], [address] Potassium Normal 3.5-5.1 [facility] [place] Comment on above: Result Comment: Canc elled via OM: Order cancelled - Patient discharged Performed By: #### L 500.4050 ####[facility] [place] [address] [place], [address] Result Comment: Canc elled via OM: MD Ordered Performed By: #### L 100.0100, L500.2500 ####[facility] [place] [address] [place], [address] T BILI Normal 0.20-1.00 [facility] [place] Comment on above: Result Comment: Canc elled via OM: Order cancelled - Patient discharged Performed By: #### L 500.4050 ####[facility] [place] [address] [place], [address] T PROT Normal 6.4-8.2 [facility] [place] Comment on above: Result Comment: Canc elled via OM: Order cancelled - Patient discharged Performed By: #### L 500.4050 ####[facility] [place] [address] [place], [address] Comprehensive Metabolic Profil Normal 136-145 [facility] [place] Comment on above: Result Comment: Canc elled via OM: Order cancelled - Patient discharged Performed By: #### L 500.4050 ####[facility] [place] [address] [place], [address] Result Comment: Canc elled via OM: MD Ordered Performed By: #### L 100.0100, L500.2500 ####[facility] [place] [address] [place], [address] CBC W/Diff, Automatedon 12-0 Absolute Neut Normal 2.0-7.7 [facility] [place] Comment on above: Result Comment: Canc elled via OM: Order cancelled - Patient discharged Performed By: #### L 500.2500, L100.0100 ####[facility] [place] [address] [place], [address] HCT Normal 37-47 [facility] [place] Comment on above: Result Comment: Canc elled via OM: Order cancelled - Patient discharged Performed By: #### L 500.2500, L100.0100 ####[facility] [place] [address] [place], [address] HGB Normal 12.0-15.0 [facility] [place] Comment on above: Result Comment: Canc elled via OM: Order cancelled - Patient discharged Performed By: #### L 500.2500, L100.0100 ####[facility] [place] [address] [place], [address] MCH Normal 27.0-32.0 [facility] [place] Comment on above: Result Comment: Canc elled via OM: Order cancelled - Patient discharged Performed By: #### L 500.2500, L100.0100 ####[facility] [place] [address] [place], [address] MCHC Normal 32-36 [facility] [place] Comment on above: Result Comment: Canc elled via OM: Order cancelled - Patient discharged Performed By: #### L 500.2500, L100.0100 ####[facility] [place] [address] [place], [address] MCV Normal 81-99 [facility] [place] Comment on above: Result Comment: Canc elled via OM: Order cancelled - Patient discharged Performed By: #### L 500.2500, L100.0100 ####[facility] [place] [address] [place], [address] NEUT% Normal 47-70 [facility] [place] Comment on above: Result Comment: Canc elled via OM: Order cancelled - Patient discharged Performed By: #### L 500.2500, L100.0100 ####[facility] [place] [address] [place], [address] PLT Normal 150-450 [facility] [place] Comment on above: Result Comment: Canc elled via OM: Order cancelled - Patient discharged Performed By: #### L 500.2500, L100.0100 ####[facility] [place] [address] [place], [address] RBC Normal 4.2-5.4 [facility] [place] Comment on above: Result Comment: Canc elled via OM: Order cancelled - Patient discharged Performed By: #### L 500.2500, L100.0100 ####[facility] [place] [address] [place], [address] RDW CV Normal 11.6-14.6 [facility] [place] Comment on above: Result Comment: Canc elled via OM: Order cancelled - Patient discharged Performed By: #### L 500.2500, L100.0100 ####[facility] [place] [address] [place], [address] RDW SD Normal 35.1-43.9 [facility] [place] Comment on above: Result Comment: Canc elled via OM: Order cancelled - Patient discharged Performed By: #### L 500.2500, L100.0100 ####[facility] [place] [address] [place], [address] WBC Normal 4.4-11.0 [facility] [place] Comment on above: Result Comment: Canc elled via OM: Order cancelled - Patient discharged Performed By: #### L 500.2500, L100.0100 ####[facility] [place] [address] [place], [address] Comprehensive Metabolic Prof ilon 01-11-2023 ALB Normal 3.2-5.0 [facility] [place] Comment on above: Result Comment: Canc elled via OM: Order cancelled - Patient discharged Performed By: #### L 500.4050 ####[facility] [place] [address] [place], [address] ALK P Normal 45-117 [facility] [place] Comment on above: Result Comment: Canc elled via OM: Order cancelled - Patient discharged Performed By: #### L 500.4050 ####[facility] [place] [address] [place], [address] ALT Normal 13-56 [facility] [place] Comment on above: Result Comment: Canc elled via OM: Order cancelled - Patient discharged Performed By: #### L 500.4050 ####[facility] [place] [address] [place], [address] AST Normal 15-37 [facility] [place] Comment on above: Result Comment: Canc elled via OM: Order cancelled - Patient discharged Performed By: #### L 500.4050 ####[facility] [place] [address] [place], [address] BUN Normal 7-18 [facility] [place] Comment on above: Result Comment: Canc elled via OM: Order cancelled - Patient discharged Performed By: #### L 500.4050 ####[facility] [place] [address] [place], [address] Result Comment: Canc elled via OM: MD Ordered Performed By: #### L 500.2500, L100.0100 ####[facility] [place] [address] [place], [address] BUN/CRE Normal 10-20 [facility] [place] Comment on above: Result Comment: Canc elled via OM: Order cancelled - Patient discharged Performed By: #### L 500.4050 ####[facility] [place] [address] [place], [address] Result Comment: Canc elled via OM: MD Ordered Performed By: #### L 500.2500, L100.0100 ####[facility] [place] [address] [place], [address] CA,Total Normal 8.5-10.1 [facility] [place] Comment on above: Result Comment: Canc elled via OM: Order cancelled - Patient discharged Performed By: #### L 500.4050 ####[facility] [place] [address] [place], [address] Result Comment: Canc elled via OM: MD Ordered Performed By: #### L 500.2500, L100.0100 ####[facility] [place] [address] [place], [address] CL Normal 98-107 [facility] [place] Comment on above: Result Comment: Canc elled via OM: Order cancelled - Patient discharged Performed By: #### L 500.4050 ####[facility] [place] [address] [place], [address] Result Comment: Canc elled via OM: MD Ordered Performed By: #### L 500.2500, L100.0100 ####[facility] [place] [address] [place], [address] CO2 Normal 21.0-32.0 [facility] [place] Comment on above: Result Comment: Canc elled via OM: Order cancelled - Patient discharged Performed By: #### L 500.4050 ####[facility] [place] [address] [place], [address] Result Comment: Canc elled via OM: MD Ordered Performed By: #### L 500.2500, L100.0100 ####[facility] [place] [address] [place], [address] CREAT,SERUM Normal 0.55-1.02 [facility] [place] Comment on above: Result Comment: Canc elled via OM: Order cancelled - Patient discharged Performed By: #### L 500.4050 ####[facility] [place] [address] [place], [address] Result Comment: Canc elled via OM: MD Ordered Performed By: #### L 500.2500, L100.0100 ####[facility] [place] [address] [place], [address] EST GFR Normal >60 [facility] [place] Comment on above: Result Comment: Canc elled via OM: Order cancelled - Patient discharged Performed By: #### L 500.4050 ####[facility] [place] [address] [place], [address] Result Comment: Canc elled via OM: MD Ordered Performed By: #### L 500.2500, L100.0100 ####[facility] [place] [address] [place], [address] EST GFR - AA Normal >60 [facility] [place] Comment on above: Result Comment: Canc elled via OM: Order cancelled - Patient discharged Performed By: #### L 500.4050 ####[facility] [place] [address] [place], [address] Result Comment: Canc elled via OM: MD Ordered Performed By: #### L 500.2500, L100.0100 ####[facility] [place] [address] [place], [address] GAP Normal 5-15 [facility] Comment on above: Result Comment: Canc elled via OM: Order cancelled - Patient discharged Performed By: #### L 500.4050 ####[facility] [place] [address] [place], [address] Result Comment: Canc elled via OM: MD Ordered Performed By: #### L 500.2500, L100.0100 ####[facility] [place] [address] [place], [address] GLU Normal 74-106 [facility] [place] Comment on above: Result Comment: Canc elled via OM: Order cancelled - Patient discharged Performed By: #### L 500.4050 ####[facility] [place] [address] [place], [address] Result Comment: Canc elled via OM: MD Ordered Performed By: #### L 500.2500, L100.0100 ####[facility] [place] [address] [place], [address] Potassium Normal 3.5-5.1 [facility] [place] Comment on above: Result Comment: Canc elled via OM: Order cancelled - Patient discharged Performed By: #### L 500.4050 ####[facility] [place] [address] [place], [address] Result Comment: Canc elled via OM: MD Ordered Performed By: #### L 500.2500, L100.0100 ####[facility] [place] [address] [place], [address] T BILI Normal 0.20-1.00 [facility] [place] Comment on above: Result Comment: Canc elled via OM: Order cancelled - Patient discharged Performed By: #### L 500.4050 ####[facility] [place] [address] [place], [address] T PROT Normal 6.4-8.2 [facility] [place] Comment on above: Result Comment: Canc elled via OM: Order cancelled - Patient discharged Performed By: #### L 500.4050 ####[facility] [place] [address] [place], [address] Comprehensive Metabolic Profil Normal 136-145 [facility] [place] Comment on above: Result Comment: Canc elled via OM: Order cancelled - Patient discharged Performed By: #### L 500.4050 ####[facility] [place] [address] [place], [address] Result Comment: Canc elled via OM: MD Ordered Performed By: #### L 500.2500, L100.0100 ####[facility] [place] [address] [place], [address] Respiratory Cultureon 2022 RESPC Mixed normal respiratory linette. No Haemophilus, Streptococcus pneumoniae, beta-hemolytic Streptococcus or Staphylococcus aureus isolated. Normal [facility] [place] Comment on above: Performed By: #### M 100.2400, M100.2000 ####[facility] [place] [address] [place], [address] Absolute lymphocyte countOrd ered By: Tasha Kim on 01-10-2023 Lymphocytes Auto (Unsp spec) [#/Vol] 3.15 10*3/uL 0.83-4.51 [facility] [place] Basic Metabolic Profile (BMP )on 01-10-2023 BUN Normal 7-18 [facility] [place] Comment on above: Result Comment: Canc elled via OM: MD Ordered Performed By: #### L 100.0100, L500.2500 ####[facility] [place] [address] [place], [address] BUN/CRE Normal 10-20 [facility] [place] Comment on above: Result Comment: Canc elled via OM: MD Ordered Performed By: #### L 100.0100, L500.2500 ####[facility] [place] [address] [place], [address] CA,Total Normal 8.5-10.1 [facility] [place] Comment on above: Result Comment: Canc elled via OM: MD Ordered Performed By: #### L 100.0100, L500.2500 ####[facility] [place] [address] [place], [address] CL Normal 98-107 [facility] [place] Comment on above: Result Comment: Canc elled via OM: MD Ordered Performed By: #### L 100.0100, L500.2500 ####[facility] [place] [address] [place], [address] CO2 Normal 21.0-32.0 [facility] [place] Comment on above: Result Comment: Canc elled via OM: MD Ordered Performed By: #### L 100.0100, L500.2500 ####[facility] [place] [address] [place], [address] CREAT,SERUM Normal 0.55-1.02 [facility] [place] Comment on above: Result Comment: Canc elled via OM: MD Ordered Performed By: #### L 100.0100, L500.2500 ####[facility] [place] [address] [place], [address] EST GFR Normal >60 [facility] [place] Comment on above: Result Comment: Canc elled via OM: MD Ordered Performed By: #### L 100.0100, L500.2500 ####[facility] [place] [address] [place], [address] EST GFR - AA Normal >60 [facility] [place] Comment on above: Result Comment: Canc elled via OM: MD Ordered Performed By: #### L 100.0100, L500.2500 ####[facility] [place] [address] [place], [address] GAP Normal 5-15 [facility] [place] Comment on above: Result Comment: Canc elled via OM: MD Ordered Performed By: #### L 100.0100, L500.2500 ####[facility] [place] [address] [place], [address] GLU Normal 74-106 [facility] [place] Comment on above: Result Comment: Canc elled via OM: MD Ordered Performed By: #### L 100.0100, L500.2500 ####[facility] [place] [address] [place], [address] Potassium Normal 3.5-5.1 [facility] [place] Comment on above: Result Comment: Canc elled via OM: MD Ordered Performed By: #### L 100.0100, L500.2500 ####[facility] [place] [address] [place], [address] Basic Metabolic Profile (BMP) Normal 136-145 [facility] [place] Comment on above: Result Comment: Canc elled via OM: MD Ordered Performed By: #### L 100.0100, L500.2500 ####[facility] [place] [address] [place], [address] Basophil percentageOrdered B y: Tasha Kim on 01-10-2023 Basophils/100 WBC (Bld) 0.8 % 0-1 [facility] Bilirubin [Mass/Vol] 0.40 mg/dL Normal 0.20-1.00 [facility] Comment on above: For patients on eltr ombopag therapy, use of [place] TBIL is not recommended. Result Comment: For patients on eltrombopag therapy, use of [place] TBIL is not recommended. Performed By: #### L 500.4050 ####[facility] [place] [address] [place], [address] Chloride [Moles/Vol] 107 mmol/L Normal 98-107 [facility] Comment on above: Performed By: #### L 500.4050 ####[facility] [place] [address] [place], [address] Eosinophils/100 WBC (Bld) 3.3 % 0-5 [facility] [place] Glucose [Mass/Vol] 139 mg/dL High 74-106 [facility] Comment on above: Fasting Glucose resu lt greater than or equal to 126 mg/dL suggests DIABETES MELLITUS per A.D.A. criteria. Result Comment: Fast ing Glucose result greater than or equal to 126 mg/dLsuggests DIABETES MELLITUS per A.D.A. criteria. Performed By: #### L 500.4050 ####[facility] [place] [address] [place], [address] Neutrophils (Bld) [#/Vol] 6.0 10*3/uL 2.0-7.7 [facility] [place] Neutrophils/100 WBC (Bld) 57.6 % 47-70 [facility] [place] Potassium [Moles/Vol] 4.3 mmol/L Normal 3.5-5.1 [facility] Comment on above: Performed By: #### L 500.4050 ####[facility] [place] [address] [place], [address] Protein [Mass/Vol] 6.2 g/dL 6.4-8.2 [facility] Sodium [Moles/Vol] 136 mmol/L Normal 136-145 [facility] Comment on above: Performed By: #### L 500.4050 ####[facility] [place] [address] [place], [address] WBC (Bld) [#/Vol] 10.4 10*3/uL 4.4-11.0 [facility] Bedside Glucoseon 01-10-2023 FINGERSTICK GLU 288 mg/dL High 74-106 [facility] [place] Comment on above: Result Comment: MARYAM GEMENT OF PATIENT CARE PER NURSING PROTOCOL Performed By: #### L 501.080 ####[facility] [place] [address] [place], [address] FINGERSTICK GLU 137 mg/dL High 74-106 [facility] [place] Comment on above: Result Comment: MARYAM GEMENT OF PATIENT CARE PER NURSING PROTOCOL Performed By: #### L 501.080 ####[facility] [place] [address] [place], [address] Blood erythrocytes count (nu mber/volume)Ordered By: Tasha Kim on 01-10-2023 RBC (Bld) [#/Vol] 3.23 10*6/uL 4.2-5.4 [facility] Blood hemoglobin measurement (mass/volume)Ordered By: Tasha Kim on 01-10-2023 Hemoglobin (Bld) [Mass/Vol] 8.8 g/dL 12.0-15.0 [facility] [place] Blood lymphocytes/100 leukoc ytesOrdered By: Tasha Kim on 01-10-2023 Lymphocytes/100 WBC (Bld) 30.2 % 19-41 [facility] [place] Blood monocytes/100 leukocyt esOrdered By: Tasha Kim on 01-10-2023 Monocytes/100 WBC (Bld) 7.1 % 0-10 [facility] Blood platelet mean volumeOr dered By: Tasha Kim on 01-10-2023 Platelet mean volume (Bld) [Entitic vol] 9.6 fL 6.2-12.0 [facility] [place] CBC W/Diff, Automatedon 12-0 Absolute Lymph 3.15 X10 3/uL Normal 0.83-4.51 [facility] [place] Comment on above: Performed By: #### L 100.0100, L500.2500 ####[facility] [place] [address] [place], [address] Absolute Neut 6.0 X10 3/uL Normal 2.0-7.7 [facility] [place] Comment on above: Performed By: #### L 100.0100, L500.2500 ####[facility] [place] [address] [place], [address] Basophils/100 WBC (Bld) 0.8 % Normal 0-1 [facility] Comment on above: Performed By: #### L 100.0100, L500.2500 ####[facility] [place] [address] [place], [address] Eosinophils/100 WBC (Bld) 3.3 % Normal 0-5 [facility] [place] Comment on above: Performed By: #### L 100.0100, L500.2500 ####[facility] [place] [address] [place], [address] Erythrocyte distribution width (RBC) [Ratio] 13.3 % Normal 11.6-14.6 [facility] [place] Comment on above: Performed By: #### L 100.0100, L500.2500 ####[facility] [place] [address] [place], [address] Hematocrit (Bld) [Volume fraction] 28.2 % Low 37-47 [facility] [place] Comment on above: Performed By: #### L 100.0100, L500.2500 ####[facility] [place] [address] [place], [address] Hemoglobin (Bld) [Mass/Vol] 8.8 g/dL Low 12.0-15.0 [facility] [place] Comment on above: Performed By: #### L 100.0100, L500.2500 ####[facility] [place] [address] [place], [address] IG% 1.000 High 0.0-0.9 [facility] [place] Comment on above: Result Comment: IG% - Immature Granulocytes (promyelocytes, myelocytes andmetamyelocytes) > 1% indicates that a LEFT SHIFT is Present. Performed By: #### L 100.0100, L500.2500 ####[facility] [place] [address] [place], [address] Lymphocytes/100 WBC (Bld) 30.2 % Normal 19-41 [facility] [place] Comment on above: Performed By: #### L 100.0100, L500.2500 ####[facility] [place] [address] [place], [address] MCH (RBC) [Entitic mass] 27.2 pg Normal 27.0-32.0 [facility] [place] Comment on above: Performed By: #### L 100.0100, L500.2500 ####[facility] [place] [address] [place], [address] MCHC (RBC) [Mass/Vol] 31.2 g/dL Low 32-36 [facility] Comment on above: Performed By: #### L 100.0100, L500.2500 ####[facility] [place] [address] [place], [address] MCV (RBC) [Entitic vol] 87.3 fL Normal 81-99 [facility] Comment on above: Performed By: #### L 100.0100, L500.2500 ####[facility] [place] [address] [place], [address] Monocytes/100 WBC (Bld) 7.1 % Normal 0-10 [facility] Comment on above: Performed By: #### L 100.0100, L500.2500 ####[facility] [place] [address] [place], [address] Neutrophils/100 WBC (Bld) 57.6 % Normal 47-70 [facility] [place] Comment on above: Performed By: #### L 100.0100, L500.2500 ####[facility] [place] [address] [place], [address] Nucleated RBC (Bld) [#/Vol] 0 10*3/uL Normal 0-5 [facility] [place] Comment on above: Performed By: #### L 100.0100, L500.2500 ####[facility] [place] [address] [place], [address] Platelet mean volume (Bld) [Entitic vol] 9.6 fL Normal 6.2-12.0 [facility] [place] Comment on above: Performed By: #### L 100.0100, L500.2500 ####[facility] [place] [address] [place], [address] Platelets (Bld) [#/Vol] 317 10*3/uL Normal 150-450 [facility] [place] Comment on above: Performed By: #### L 100.0100, L500.2500 ####[facility] [place] [address] [place], [address] RBC (Bld) [#/Vol] 3.23 10*6/uL Low 4.2-5.4 [facility] Comment on above: Performed By: #### L 100.0100, L500.2500 ####[facility] [place] [address] [place], [address] RDW SD 42.8 fl Normal 35.1-43.9 [facility] [place] Comment on above: Performed By: #### L 100.0100, L500.2500 ####[facility] [place] [address] [place], [address] WBC (Bld) [#/Vol] 10.4 10*3/uL Normal 4.4-11.0 [facility] Comment on above: Performed By: #### L 100.0100, L500.2500 ####[facility] [place] [address] [place], [address] Comprehensive Metabolic Prof ilon 01-10-2023 ALK P 359 U/L High 45-117 [facility] [place] Comment on above: Performed By: #### L 500.4050 ####[facility] [place] [address] [place], [address] AST [Catalytic activity/Vol] 37 U/L Normal 15-37 [facility] [place] Comment on above: Performed By: #### L 500.4050 ####[facility] [place] [address] [place], [address] BUN/CRE 22.7 RATIO High 10-20 [facility] [place] Comment on above: Performed By: #### L 500.4050 ####[facility] [place] [address] [place], [address] CA,Total 7.9 mg/dL Low 8.5-10.1 [facility] [place] Comment on above: Performed By: #### L 500.4050 ####[facility] [place] [address] [place], [place], [id number] ECRCL 45.80 ml/min Normal [facility] [place] Comment on above: Performed By: #### L 500.4050 ####[facility] [place] [address] [place], [address] EST GFR - AA 60 mL/min Normal >60 [facility] [place] Comment on above: Result Comment: Afri can Hungarian GFR Calc Performed By: #### L 500.4050 ####[facility] [place] [address] [place], [address] GAP 4 Low 5-15 [facility] [place] Comment on above: Performed By: #### L 500.4050 ####[facility] [place] [address] [place], [address] GFR/1.73 sq M.predicted among non-blacks MDRD (S/P/Bld) [Vol rate/Area] 49 mL/min/{1.73_m2} Low >60 [facility] [place] Comment on above: Result Comment: Non- GFR Calc Performed By: #### L 500.4050 ####[facility] [place] [address] [place], [address] T PROT 6.2 g/dL Low 6.4-8.2 [facility] [place] Comment on above: Performed By: #### L 500.4050 ####[facility] [place] [address] [place], [address] Comprehensive Metabolic Prof ilOrdered By: Tasha Kim on 01-10-2023 ALT [Catalytic activity/Vol] 44 U/L Normal 13-56 [facility] [place] Comment on above: Performed By: #### L 500.4050 ####[facility] [place] [address] [place], [place], [phone] CO2 [Moles/Vol] 25.0 mmol/L Normal 21.0-32.0 [facility] [place] Comment on above: Performed By: #### L 500.4050 ####[facility] [place] [address] [place], [place], [id number] Globulin (S) [Mass/Vol] 4.2 g/dL Normal 2.2-4.2 [facility] Comment on above: Performed By: #### L 500.4050 ####[facility] [place] [address] [place], [place], [id number] Determination of erythrocyte mean corpuscular volume (MCV)Ordered By: Tasha Kim on 01-10-2023 MCV (RBC) [Entitic vol] 87.3 fL 81-99 [facility] Discharge Instructionon Discharge Instruction Normal [facility] Glucose Glucometer (BldC) [M ass/Vol]Ordered By: Tasha Kim on 01-10-2023 Glucose [Mass/Vol] 288 mg/dL 74-106 [facility] Comment on above: MANAGEMENT OF PATIEN T CARE PER NURSING PROTOCOL Gram Stainon 01-10-2023 GS Acceptable Specimen? Yes (<25 Epithelial cells per/lpf) Gram Stain Rare Epithelial cells Rare Gram negative rods Rare Gram positive cocci Normal [facility] [place] Comment on above: Performed By: #### M 100.2400, M100.2000 ####[facility] [place] [address] [place], [place], [id number] Hematocrit Auto (Bld) [Volum e fraction]Ordered By: Tasha Kim on 01-10-2023 Hematocrit (Bld) [Volume fraction] 28.2 % 37-47 [facility] [place] Laboratory - Chemistry and C hemistry - challengeOrdered By: Tasha Kim on 01-10-2023 ALP [Catalytic activity/Vol] 359 U/L 45-117 [facility] [place] Urea nitrogen/Creatinine [Mass ratio] 22.7 mg/mg 10-20 [facility] [place] Laboratory - Hematology and Cell countsOrdered By: Tasha Kim on 01-10-2023 Erythrocyte distribution width (RBC) [Entitic vol] 42.8 fL 35.1-43.9 [facility] [place] Erythrocyte distribution width (RBC) [Ratio] 13.3 % 11.6-14.6 [facility] [place] Immature granulocytes/100 WBC (Bld) 1.000 % 0.0-0.9 [facility] Comment on above: IG% - Immature Granu locytes (promyelocytes, myelocytes and metamyelocytes) > 1% indicates that a LEFT SHIFT is Present. MCH (RBC) [Entitic mass] 27.2 pg 27.0-32.0 [facility] Nucleated RBC/100 WBC (Bld) [Ratio] 0 % 0-5 [facility] [place] MCHC Auto (RBC) [Mass/Vol]Or dered By: Tasha Kim on 01-10-2023 MCHC (RBC) [Mass/Vol] 31.2 g/dL 32-36 [facility] No Panel InformationOrdered By: Tasha Kim on 01-10-2023 Estimated Creatinine Clearance Calc 45.80 ml/min [facility] Estimated GFR (MDRD) Amer 60 mL/min >60 [facility] Comment on above: GFR Calc Estimated GFR (MDRD) Non-Af Amer 49 mL/min >60 [facility] Comment on above: Non- GFR Calc Platelets bldOrdered By: Dalila Kim on 01-10-2023 Platelets (Bld) [#/Vol] 317 10*3/uL 150-450 [facility] Serum or plasma albumin cortez urement (mass/volume)Ordered By: Tasha Kim on 01-10-2023 Albumin [Mass/Vol] 2.0 g/dL Low 3.2-5.0 [facility] Comment on above: Performed By: #### L 500.4050 ####[facility] [address] [place], [place], [id number] Serum or plasma albumin/glob ulin mass ratioOrdered By: Tasha Kim on 01-10-2023 Albumin/Globulin [Mass ratio] 0.5 {ratio} Low 0.9-2.4 [facility] Comment on above: Performed By: #### L 500.4050 ####[facility] [address] [place], [place], [phone] Serum or plasma calcium cortez urement (mass/volume)Ordered By: Tasha Kim on 01-10-2023 Calcium [Mass/Vol] 7.9 mg/dL 8.5-10.1 [facility] Serum or plasma creatinine m easurement (mass/volume)Ordered By: Tasha Kim on 01-10-2023 Creatinine [Mass/Vol] 1.19 mg/dL High 0.55-1.02 [facility] Comment on above: The validity of the calculated GFR & GFRAA in patients over 70 years has not been determined. Clinical correlation is essential. Result Comment: The validity of the calculated GFR GFRAA in patients over70 years has not been determined. Clinical correlation isessential. Performed By: #### L 500.4050 ####[facility] [place] [address] [facility] [address] Serum or plasma urea nitroge n measurement (mass/volume)Ordered By: Tasha Kim on 01-10-2023 Urea nitrogen [Mass/Vol] 27 mg/dL High 7- [facility] [place] Comment on above: Performed By: #### L 500.4050 ####[facility] [place] [address] [facility] [address] Thin prep Papanicolaou smear with manual screeningOrdered By: Tasha Kim on 01-10-2023 Thin prep Papanicolaou smear with manual screening 37 U/L 15-37 [facility] [place] Thin prep Papanicolaou smear with manual screening 4 5-15 [facility] [place] Basic Metabolic Profile (BMP )on 01-09-2023 BUN Normal - [facility] [place] Comment on above: Result Comment: Canc elled via OM: MD Ordered Performed By: #### L 101.9900, L500.2500, L100.0100 ####[facility] [place] [address] [facility] [address] BUN/CRE Normal 10-20 [facility] [place] Comment on above: Result Comment: Canc elled via OM: MD Ordered Performed By: #### L 101.9900, L500.2500, L100.0100 ####[facility] [place] [address] [place], [address] CA,Total Normal 8.5-10.1 [facility] [place] Comment on above: Result Comment: Canc elled via OM: MD Ordered Performed By: #### L 101.9900, L500.2500, L100.0100 ####[facility] [place] [address] [place], [address] CL Normal 98-107 [facility] [place] Comment on above: Result Comment: Canc elled via OM: MD Ordered Performed By: #### L 101.9900, L500.2500, L100.0100 ####[facility] [place] [address] [place], [address] CO2 Normal 21.0-32.0 [facility] [place] Comment on above: Result Comment: Canc elled via OM: MD Ordered Performed By: #### L 101.9900, L500.2500, L100.0100 ####[facility] [place] [address] [place], [address] CREAT,SERUM Normal 0.55-1.02 [facility] [place] Comment on above: Result Comment: Canc elled via OM: MD Ordered Performed By: #### L 101.9900, L500.2500, L100.0100 ####[facility] [place] [address] [place], [address] EST GFR Normal >60 [facility] [place] Comment on above: Result Comment: Canc elled via OM: MD Ordered Performed By: #### L 101.9900, L500.2500, L100.0100 ####[facility] [place] [address] [place], [address] EST GFR - AA Normal >60 [facility] [place] Comment on above: Result Comment: Canc elled via OM: MD Ordered Performed By: #### L 101.9900, L500.2500, L100.0100 ####[facility] [place] [address] [place], [address] GAP Normal 5-15 [facility] [place] Comment on above: Result Comment: Canc elled via OM: MD Ordered Performed By: #### L 101.9900, L500.2500, L100.0100 ####[facility] [place] [address] [place], [address] GLU Normal 74-106 [facility] [place] Comment on above: Result Comment: Canc elled via OM: MD Ordered Performed By: #### L 101.9900, L500.2500, L100.0100 ####[facility] [place] [address] [place], [address] Potassium Normal 3.5-5.1 [facility] [place] Comment on above: Result Comment: Canc elled via OM: MD Ordered Performed By: #### L 101.9900, L500.2500, L100.0100 ####[facility] [place] [address] [place], [address] Basic Metabolic Profile (BMP) Normal 136-145 [facility] [place] Comment on above: Result Comment: Canc elled via OM: MD Ordered Performed By: #### L 101.9900, L500.2500, L100.0100 ####[facility] [place] [address] [place], [address] Bedside Glucoseon 01-09-2023 FINGERSTICK GLU 240 mg/dL High 74-106 [facility] [place] Comment on above: Result Comment: MARYAM GEMENT OF PATIENT CARE PER NURSING PROTOCOL Performed By: #### L 501.080 ####[facility] [place] [address] [place], [address] FINGERSTICK GLU 215 mg/dL High 74-106 [facility] [place] Comment on above: Result Comment: MARYAM GEMENT OF PATIENT CARE PER NURSING PROTOCOL Performed By: #### L 501.080 ####[facility] [place] [address] [place], [address] FINGERSTICK GLU 203 mg/dL High 74-106 [facility] [place] Comment on above: Result Comment: MARYAM GEMENT OF PATIENT CARE PER NURSING PROTOCOL Performed By: #### L 501.080 ####[facility] [place] [address] [place], [address] FINGERSTICK GLU 101 mg/dL Normal 74-106 [facility] [place] Comment on above: Result Comment: MARYAM GEMENT OF PATIENT CARE PER NURSING PROTOCOL Performed By: #### L 501.080 ####[facility] [place] [address] [place], [address] CBC W/Diff, Automatedon 12-0 2-2022 Absolute Lymph 2.37 X10 3/uL Normal 0.83-4.51 [facility] [place] Comment on above: Performed By: #### L 101.9900, L500.2500, L100.0100 ####[facility] [place] [address] [place], [address] Absolute Neut 6.2 X10 3/uL Normal 2.0-7.7 [facility] [place] Comment on above: Performed By: #### L 101.9900, L500.2500, L100.0100 ####[facility] [place] [address] [place], [address] Basophils/100 WBC (Bld) 0.6 % Normal 0-1 [facility] Comment on above: Performed By: #### L 101.9900, L500.2500, L100.0100 ####[facility] [place] [address] [place], [address] Eosinophils/100 WBC (Bld) 2.0 % Normal 0-5 [facility] [place] Comment on above: Performed By: #### L 101.9900, L500.2500, L100.0100 ####[facility] [place] [address] [place], [address] Erythrocyte distribution width (RBC) [Ratio] 13.2 % Normal 11.6-14.6 [facility] [place] Comment on above: Performed By: #### L 101.9900, L500.2500, L100.0100 ####[facility] [place] [address] [place], [address] Hematocrit (Bld) [Volume fraction] 27.2 % Low 37-47 [facility] [place] Comment on above: Performed By: #### L 101.9900, L500.2500, L100.0100 ####[facility] [place] [address] [place], [address] Hemoglobin (Bld) [Mass/Vol] 8.6 g/dL Low 12.0-15.0 [facility] [place] Comment on above: Performed By: #### L 101.9900, L500.2500, L100.0100 ####[facility] [place] [address] [place], [address] IG% 0.700 Normal 0.0-0.9 [facility] [place] Comment on above: Result Comment: IG% - Immature Granulocytes (promyelocytes, myelocytes andmetamyelocytes) > 1% indicates that a LEFT SHIFT is Present. Performed By: #### L 101.9900, L500.2500, L100.0100 ####[facility] [place] [address] [place], [address] Lymphocytes/100 WBC (Bld) 23.6 % Normal 19-41 [facility] [place] Comment on above: Performed By: #### L 101.9900, L500.2500, L100.0100 ####[facility] [place] [address] [place], [address] MCH (RBC) [Entitic mass] 27.3 pg Normal 27.0-32.0 [facility] [place] Comment on above: Performed By: #### L 101.9900, L500.2500, L100.0100 ####[facility] [place] [address] [place], [address] MCHC (RBC) [Mass/Vol] 31.6 g/dL Low 32-36 [facility] Comment on above: Performed By: #### L 101.9900, L500.2500, L100.0100 ####[facility] [place] [address] [place], [address] MCV (RBC) [Entitic vol] 86.3 fL Normal 81-99 [facility] Comment on above: Performed By: #### L 101.9900, L500.2500, L100.0100 ####[facility] [place] [address] [place], [address] Monocytes/100 WBC (Bld) 11.4 % High 0-10 [facility] Comment on above: Performed By: #### L 101.9900, L500.2500, L100.0100 ####[facility] [place] [address] [place], [address] Neutrophils/100 WBC (Bld) 61.7 % Normal 47-70 [facility] [place] Comment on above: Performed By: #### L 101.9900, L500.2500, L100.0100 ####[facility] [place] [address] [place], [address] Nucleated RBC (Bld) [#/Vol] 0 10*3/uL Normal 0-5 [facility] [place] Comment on above: Performed By: #### L 101.9900, L500.2500, L100.0100 ####[facility] [place] [address] [place], [address] Platelet mean volume (Bld) [Entitic vol] 9.8 fL Normal 6.2-12.0 [facility] [place] Comment on above: Performed By: #### L 101.9900, L500.2500, L100.0100 ####[facility] [place] [address] [place], [address] Platelets (Bld) [#/Vol] 252 10*3/uL Normal 150-450 [facility] [place] Comment on above: Performed By: #### L 101.9900, L500.2500, L100.0100 ####[facility] [place] [address] [place], [address] RBC (Bld) [#/Vol] 3.15 10*6/uL Low 4.2-5.4 [facility] Comment on above: Performed By: #### L 101.9900, L500.2500, L100.0100 ####[facility] [place] [address] [place], [address] RDW SD 41.6 fl Normal 35.1-43.9 [facility] [place] Comment on above: Performed By: #### L 101.9900, L500.2500, L100.0100 ####[facility] [place] [address] [place], [address] WBC (Bld) [#/Vol] 10.1 10*3/uL Normal 4.4-11.0 [facility] Comment on above: Performed By: #### L 101.9900, L500.2500, L100.0100 ####[facility] [place] [address] [place], [address] CRPon 01-09-2023 C-REACTIVE PROT 132.00 mg/L High 0.0-3.0 [facility] [place] Comment on above: Result Comment: C-Re active Protein (CRP) provides useful information for thediagnosis, therapy and monitoring of inflammatory processesand associated diseases. For the evaluation of Relative Riskfor Cardiovascular Disease, a High Sensitivity CRP (HSCRP)should be ordered. Performed By: #### L 500.4050, L501.5200, L501.6710 ####[facility] [place] [address] [place], [address] Comprehensive Metabolic Prof ilon 01-09-2023 Albumin [Mass/Vol] 1.9 g/dL Low 3.2-5.0 [facility] Comment on above: Performed By: #### L 500.4050, L501.5200, L501.6710 ####[facility] [place] [address] [place], [address] Albumin/Globulin [Mass ratio] 0.5 {ratio} Low 0.9-2.4 [facility] [place] Comment on above: Performed By: #### L 500.4050, L501.5200, L501.6710 ####[facility] [place] [address] [place], [address] ALK P 311 U/L High 45-117 [facility] [place] Comment on above: Performed By: #### L 500.4050, L501.5200, L501.6710 ####[facility] [place] [address] [place], [address] ALT [Catalytic activity/Vol] 39 U/L Normal 13-56 [facility] [place] Comment on above: Performed By: #### L 500.4050, L501.5200, L501.6710 ####[facility] [place] [address] [place], [address] AST [Catalytic activity/Vol] 33 U/L Normal 15-37 [facility] [place] Comment on above: Performed By: #### L 500.4050, L501.5200, L501.6710 ####[facility] [place] [address] [place], [address] Bilirubin [Mass/Vol] 0.40 mg/dL Normal 0.20-1.00 [facility] Comment on above: Result Comment: For patients on eltrombopag therapy, use of [place] TBIL is not recommended. Performed By: #### L 500.4050, L501.5200, L501.6710 ####[facility] [place] [address] [place], [address] BUN/CRE 25.7 RATIO High 10-20 [facility] [place] Comment on above: Performed By: #### L 500.4050, L501.5200, L501.6710 ####[facility] [place] [address] [place], [address] CA,Total 7.8 mg/dL Low 8.5-10.1 [facility] [place] Comment on above: Performed By: #### L 500.4050, L501.5200, L501.6710 ####[facility] [place] [address] [place], [address] Chloride [Moles/Vol] 107 mmol/L Normal 98-107 [facility] Comment on above: Performed By: #### L 500.4050, L501.5200, L501.6710 ####[facility] [place] [address] [place], [address] CO2 [Moles/Vol] 24.0 mmol/L Normal 21.0-32.0 [facility] [place] Comment on above: Performed By: #### L 500.4050, L501.5200, L501.6710 ####[facility] [place] [address] [place], [address] Creatinine [Mass/Vol] 1.40 mg/dL High 0.55-1.02 [facility] Comment on above: Result Comment: The validity of the calculated GFR GFRAA in patients over70 years has not been determined. Clinical correlation isessential. Performed By: #### L 500.4050, L501.5200, L501.6710 ####[facility] [place] [address] [place], [address] ECRCL 38.93 ml/min Normal [facility] [place] Comment on above: Performed By: #### L 500.4050, L501.5200, L501.6710 ####[facility] [place] [address] [place], [address] EST GFR - AA 49 mL/min Low >60 [facility] [place] Comment on above: Result Comment: Afri can Hungarian GFR Calc Performed By: #### L 500.4050, L501.5200, L501.6710 ####[facility] [place] [address] [place], [address] GAP 7 Normal 5-15 [facility] [place] Comment on above: Performed By: #### L 500.4050, L501.5200, L501.6710 ####[facility] [place] [address] [place], [address] GFR/1.73 sq M.predicted among non-blacks MDRD (S/P/Bld) [Vol rate/Area] 41 mL/min/{1.73_m2} Low >60 [facility] [place] Comment on above: Result Comment: Non- GFR Calc Performed By: #### L 500.4050, L501.5200, L501.6710 ####[facility] [place] [address] [place], [address] Globulin (S) [Mass/Vol] 4.0 g/dL Normal 2.2-4.2 [facility] Comment on above: Performed By: #### L 500.4050, L501.5200, L501.6710 ####[facility] [place] [address] [place], [address] Glucose [Mass/Vol] 116 mg/dL High 74-106 [facility] Comment on above: Result Comment: Fast ing Glucose result from 100 to 125 mg/dLsuggests IMPAIRED HOMEOSTASIS per A.D.A. criteria. Performed By: #### L 500.4050, L501.5200, L501.6710 ####[facility] [place] [address] [place], [address] Potassium [Moles/Vol] 3.9 mmol/L Normal 3.5-5.1 [facility] Comment on above: Performed By: #### L 500.4050, L501.5200, L501.6710 ####[facility] [place] [address] [place], [address] Sodium [Moles/Vol] 138 mmol/L Normal 136-145 [facility] Comment on above: Performed By: #### L 500.4050, L501.5200, L501.6710 ####[facility] [place] [address] [place], [address] T PROT 5.9 g/dL Low 6.4-8.2 [facility] [place] Comment on above: Performed By: #### L 500.4050, L501.5200, L501.6710 ####[facility] [place] [address] [place], [address] Urea nitrogen [Mass/Vol] 36 mg/dL High 7-18 [facility] [place] Comment on above: Performed By: #### L 500.4050, L501.5200, L501.6710 ####[facility] [place] [address] [place], [address] Erythrocyte Sed Rateon 01-09 SED RATE 82 mm/hr High 0-30 [facility] [place] Comment on above: Performed By: #### L 101.9900, L500.2500, L100.0100 ####[facility] [place] [address] [place], [address] Erythrocyte sedimentation ra teOrdered By: Tasha Kim on 01-09-2023 ESR (Bld) [Velocity] 82 mm/h 0-30 [facility] Gram stain for investigation of transfusion reactionOrdered By: Atul Cardozo on 01-09-2023 Microscopic observation Gram stain Nom (Unsp spec) [facility] [place] Laboratory - Chemistry and C hemistry - challengeOrdered By: Tasha Kim on 01-09-2023 Magnesium [Mass/Vol] 2.1 mg/dL 1.6-2.6 [facility] Magnesiumon 01-09-2023 Magnesium [Mass/Vol] 2.1 mg/dL Normal 1.6-2.6 [facility] Comment on above: Performed By: #### L 500.4050, L501.5200, L501.6710 ####[facility] [place] [address] [place], [place], [id number] Microbial respiratory cultur eOrdered By: Atul Cardozo on 01-09-2023 Bacteria identified Respiratory culture Nom (Unsp spec) [facility] [place] Procalcitoninon 01-09-2023 Procalcitonin 3.15 ng/mL High 0.00-0.09 [facility] [place] Comment on above: Result Comment: A pr ocalcitonin (PCT) level above 2.0 ng/mL on the first day of ICU admission is associated with a high risk for progression to severe sepsis and/or septic shock. A PCT level below 0.5 ng/mL on the first day of ICU admission is associated with a low risk for progression to severe and/or septic shock. Note: Concentrations <0.5 ng/mL do not exclude an infection on account of localized infections (without systemic signs) which can be associated with such low concentrations, or a systemic infection in its initial stages (<6 hours). Furthermore, increased procalcitonin can occur without infection. PCT concentrations between 0.5 and 2.0 ng/mL should be interpreted taking into account the patient's history. It is recommended to retest PCT within 6-24 hours if any concentrations <2 ng/mL are obtained. Performed By: #### L 509.7000 ####[facility] [place] [address] [facility] [place], [place], [address] Serum or plasma C reactive p rotein measurement (mass/volume)Ordered By: Tasha Kim on 01-09-2023 CRP [Mass/Vol] 132.00 mg/L 0.0-3.0 [facility] [place] Comment on above: C-Reactive Protein ( CRP) provides useful information for thediagnosis, therapy and monitoring of inflammatory processesand associated diseases. For the evaluation of Relative Riskfor Cardiovascular Disease, a High Sensitivity CRP (HSCRP)should be ordered. Serum or plasma trough vanco mycin levelOrdered By: Tasha Kim on 01-09-2023 Vancomycin trough [Mass/Vol] 20.4 ug/mL 5.0-15.0 [facility] [place] Comment on above: VANCOMYCIN STANDARED DRUG THERAPY TROUGH LEVEL: 5.0 - 15.0 mg/L VANCOMYCIN HIGH INTENSITY THERAPY TROUGH LEVEL: 15.0 - 20.0 mg/L High Intensity therapy recommended for serious lifethreatening infections include:- Dglesotrmw-Qpkgjzwyxkcq-Eqdlxvxdn (Ventilator/Healtcare Associated)-Sepsis PLEASE CONTACT PHARMACY SERVICES (#[id number]) FOR INTERPRETATIONOF RESULTS. Serum or plasma vancomycin m easurement (mass/volume)Ordered By: Tasha Kim on 01-09-2023 Vancomycin [Mass/Vol] 15.7 ug/mL 0.0-15.0 [facility] Comment on above: VANCOMYCIN STANDARD DRUG THERAPY: CRITICAL VALUE IS > 15.0 mg/L VANCOMYCIN HIGH INTENSITY THERAPY: CRITICAL VALUE IS > 20.0 mg/L PLEASE CONTACT PHARMACY SERVICES (#[id number]) FOR INTERPRETATIONOF RESULTS. THIS RESULT DOES NOT REPRESENT A PEAK OR TROUGHLEVEL FOR THIS DRUG. Serum procalcitonin measurem entOrdered By: Tasha Kim on 01-09-2023 Procalcitonin [Mass/Vol] 3.15 ng/mL 0.00-0.09 [facility] [place] Comment on above: A procalcitonin (PCT ) level above 2.0 ng/mL on the first day of ICU admission is associated with a high risk for progression to severe sepsis and/or septic shock. A PCT level below 0.5 ng/mL on the first day of ICU admission is associated with a low risk for progression to severe and/or septic shock. Note: Concentrations <0.5 ng/mL do not exclude an infection on account of localized infections (without systemic signs) which can be associated with such low concentrations, or a systemic infection in its initial stages (<6 hours). Furthermore, increased procalcitonin can occur without infection. PCT concentrations between 0.5 and 2.0 ng/mL should be interpreted taking into account the patient's history. It is recommended to retest PCT within 6-24 hours if any concentrations <2 ng/mL are obtained. Vancomycin, Random Levelon 1 03-12-2022 VANCO, RANDOM 15.7 ug/mL High 0.0-15.0 [facility] [place] Comment on above: Result Comment: VANC OMYCIN STANDARD DRUG THERAPY: CRITICAL VALUE IS > 15.0 mg/LVANCOMYCIN HIGH INTENSITY THERAPY: CRITICAL VALUE IS > 20.0 mg/LPLEASE CONTACT PHARMACY SERVICES (#9005) FOR INTERPRETATIONOF RESULTS. THIS RESULT DOES NOT REPRESENT A PEAK OR TROUGHLEVEL FOR THIS DRUG. Performed By: #### L 501.8850 ####[facility] [place] [address] [place], [address] Vancomycin, Trough Levelon 1 03-12-2022 VANCO, TROUGH 20.4 ug/mL High 5.0-15.0 [facility] [place] Comment on above: Order Comment: Comme nts: DRAW 30 MIN PRIOR TO DOSE Result Comment: VANC OMYCIN STANDARED DRUG THERAPY TROUGH LEVEL: 5.0 - 15.0 mg/LVANCOMYCIN HIGH INTENSITY THERAPY TROUGH LEVEL: 15.0 - 20.0 mg/LHigh Intensity therapy recommended for serious lifethreatening infections include:- Nnikgqqyrm-Jlimjcgunnft-Xznrxbivu (Ventilator/Healtcare Associated)-SepsisPLEASE CONTACT PHARMACY SERVICES (#9570) FOR INTERPRETATIONOF RESULTS. Performed By: #### L 501.8820 ####[facility] [place] [address] [place], [address] Basic Metabolic Profile (BMP )on 01-08-2023 BUN/CRE 23.5 RATIO High 10-20 [facility] [place] Comment on above: Performed By: #### L 501.6710, L500.2500, L100.0100, L101.9900 ####[facility] [place] [address] [place], [address] [place],Total 8.0 mg/dL Low 8.5-10.1 [facility] [place] Comment on above: Performed By: #### L 501.6710, L500.2500, L100.0100, L101.9900 ####[facility] [place] [address] [place], [address] Chloride [Moles/Vol] 103 mmol/L Normal 98-107 [facility] Comment on above: Performed By: #### L 501.6710, L500.2500, L100.0100, L101.9900 ####[facility] [place] [address] [place], [address] CO2 [Moles/Vol] 23.0 mmol/L Normal 21.0-32.0 [facility] [place] Comment on above: Performed By: #### L 501.6710, L500.2500, L100.0100, L101.9900 ####[facility] [place] [address] [place], [address] Creatinine [Mass/Vol] 1.70 mg/dL High 0.55-1.02 [facility] Comment on above: Result Comment: The validity of the calculated GFR GFRAA in patients over70 years has not been determined. Clinical correlation isessential. Performed By: #### L 501.6710, L500.2500, L100.0100, L101.9900 ####[facility] [place] [address] [place], [address] ECRCL 32.06 ml/min Normal [facility] [place] Comment on above: Performed By: #### L 501.6710, L500.2500, L100.0100, L101.9900 ####[facility] [place] [address] [place], [address] EST GFR - AA 39 mL/min Low >60 [facility] [place] Comment on above: Result Comment: Afri can Hungarian GFR Calc Performed By: #### L 501.6710, L500.2500, L100.0100, L101.9900 ####[facility] [place] [address] [place], [address] GAP 8 Normal 5-15 [facility] [place] Comment on above: Performed By: #### L 501.6710, L500.2500, L100.0100, L101.9900 ####[facility] [place] [address] [place], [address] GFR/1.73 sq M.predicted among non-blacks MDRD (S/P/Bld) [Vol rate/Area] 33 mL/min/{1.73_m2} Low >60 [facility] [place] Comment on above: Result Comment: Non- GFR Calc Performed By: #### L 501.6710, L500.2500, L100.0100, L101.9900 ####[facility] [place] [address] [place], [address] Glucose [Mass/Vol] 125 mg/dL High 74-106 [facility] Comment on above: Result Comment: Fast ing Glucose result from 100 to 125 mg/dLsuggests IMPAIRED HOMEOSTASIS per A.D.A. criteria. Performed By: #### L 501.6710, L500.2500, L100.0100, L101.9900 ####[facility] [place] [address] [place], [address] Potassium [Moles/Vol] 3.8 mmol/L Normal 3.5-5.1 [facility] Comment on above: Performed By: #### L 501.6710, L500.2500, L100.0100, L101.9900 ####[facility] [place] [address] [place], [address] Sodium [Moles/Vol] 134 mmol/L Low 136-145 [facility] Comment on above: Performed By: #### L 501.6710, L500.2500, L100.0100, L101.9900 ####[facility] [place] [address] [place], [address] Urea nitrogen [Mass/Vol] 40 mg/dL High 7-18 [facility] [place] Comment on above: Performed By: #### L 501.6710, L500.2500, L100.0100, L101.9900 ####[facility] [place] [address] [place], [address] Bedside Glucoseon 01-08-2023 FINGERSTICK GLU 263 mg/dL High 74-106 [facility] [place] Comment on above: Result Comment: MARYAM BERRY OF PATIENT CARE PER NURSING PROTOCOL Performed By: #### L 501.080 ####[facility] [place] [address] [place], [address] FINGERSTICK GLU 235 mg/dL High 74-106 [facility] [place] Comment on above: Result Comment: MARYAM GEMENT OF PATIENT CARE PER NURSING PROTOCOL Performed By: #### L 501.080 ####[facility] [place] [address] [place], [address] FINGERSTICK GLU 233 mg/dL High 74-106 [facility] [place] Comment on above: Result Comment: MARYAM GEMENT OF PATIENT CARE PER NURSING PROTOCOL Performed By: #### L 501.080 ####[facility] [place] [address] [place], [address] FINGERSTICK GLU 142 mg/dL High -106 [facility] [place] Comment on above: Result Comment: MARYAM GEMENT OF PATIENT CARE PER NURSING PROTOCOL Performed By: #### L 501.080 ####[facility] [place] [address] [place], [address] FINGERSTICK GLU 152 mg/dL High [address] [place] [address] Comment on above: Result Comment: MARYAM GEMENT OF PATIENT CARE PER NURSING PROTOCOL Performed By: #### L 501.080 ####[facility] [place] [address] [place], [address] FINGERSTICK GLU 299 mg/dL High [address] [place] [address] Comment on above: Result Comment: MARYAM GEMENT OF PATIENT CARE PER NURSING PROTOCOL Performed By: #### L 501.080 ####[facility] [place] [address] [place], [address] FINGERSTICK GLU 294 mg/dL High [facility]106 [facility] [place] Comment on above: Result Comment: MARYAM GEMENT OF PATIENT CARE PER NURSING PROTOCOL Performed By: #### L 501.080 ####[facility] [place] [address] [place], [address] CBC W/Diff, Automatedon 12-0 Absolute Lymph 1.96 X10 3/uL Normal 0.83-4.51 [facility] [place] Comment on above: Performed By: #### L 501.6710, L500.2500, L100.0100, L101.9900 ####[facility] [place] [address] [place], [address] Absolute Neut 6.7 X10 3/uL Normal 2.0-7.7 [facility] [place] Comment on above: Performed By: #### L 501.6710, L500.2500, L100.0100, L101.9900 ####[facility] [place] [address] [place], [address] Basophils/100 WBC (Bld) 0.6 % Normal 0-1 [facility] Comment on above: Performed By: #### L 501.6710, L500.2500, L100.0100, L101.9900 ####[facility] [place] [address] [place], [address] Eosinophils/100 WBC (Bld) 1.6 % Normal 0-5 [facility] [place] Comment on above: Performed By: #### L 501.6710, L500.2500, L100.0100, L101.9900 ####[facility] [place] [address] [place], [address] Erythrocyte distribution width (RBC) [Ratio] 13.0 % Normal 11.6-14.6 [facility] [place] Comment on above: Performed By: #### L 501.6710, L500.2500, L100.0100, L101.9900 ####[facility] [place] [address] [place], [address] Hematocrit (Bld) [Volume fraction] 29.0 % Low 37-47 [facility] [place] Comment on above: Performed By: #### L 501.6710, L500.2500, L100.0100, L101.9900 ####[facility] [place] [address] [place], [address] Hemoglobin (Bld) [Mass/Vol] 9.2 g/dL Low 12.0-15.0 [facility] [place] Comment on above: Performed By: #### L 501.6710, L500.2500, L100.0100, L101.9900 ####[facility] [place] [address] [place], [address] IG% 0.900 Normal 0.0-0.9 [facility] [place] Comment on above: Result Comment: IG% - Immature Granulocytes (promyelocytes, myelocytes andmetamyelocytes) > 1% indicates that a LEFT SHIFT is Present. Performed By: #### L 501.6710, L500.2500, L100.0100, L101.9900 ####[facility] [place] [address] [place], [address] Lymphocytes/100 WBC (Bld) 18.8 % Low 19-41 [facility] [place] Comment on above: Performed By: #### L 501.6710, L500.2500, L100.0100, L101.9900 ####[facility] [place] [address] [place], [address] MCH (RBC) [Entitic mass] 27.4 pg Normal 27.0-32.0 [facility] [place] Comment on above: Performed By: #### L 501.6710, L500.2500, L100.0100, L101.9900 ####[facility] [place] [address] [place], [address] MCHC (RBC) [Mass/Vol] 31.7 g/dL Low 32-36 [facility] Comment on above: Performed By: #### L 501.6710, L500.2500, L100.0100, L101.9900 ####[facility] [place] [address] [place], [address] MCV (RBC) [Entitic vol] 86.3 fL Normal 81-99 [facility] Comment on above: Performed By: #### L 501.6710, L500.2500, L100.0100, L101.9900 ####[facility] [place] [address] [place], [address] Monocytes/100 WBC (Bld) 14.4 % High 0-10 [facility] Comment on above: Performed By: #### L 501.6710, L500.2500, L100.0100, L101.9900 ####[facility] [place] [address] [place], [address] Neutrophils/100 WBC (Bld) 63.7 % Normal 47-70 [facility] [place] Comment on above: Performed By: #### L 501.6710, L500.2500, L100.0100, L101.9900 ####[facility] [place] [address] [place], [address] Nucleated RBC (Bld) [#/Vol] 0 10*3/uL Normal 0-5 [facility] [place] Comment on above: Performed By: #### L 501.6710, L500.2500, L100.0100, L101.9900 ####[facility] [place] [address] [place], [address] Platelet mean volume (Bld) [Entitic vol] 9.8 fL Normal 6.2-12.0 [facility] [place] Comment on above: Performed By: #### L 501.6710, L500.2500, L100.0100, L101.9900 ####[facility] [place] [address] [place], [address] Platelets (Bld) [#/Vol] 233 10*3/uL Normal 150-450 [facility] [place] Comment on above: Performed By: #### L 501.6710, L500.2500, L100.0100, L101.9900 ####[facility] [place] [address] [place], [address] RBC (Bld) [#/Vol] 3.36 10*6/uL Low 4.2-5.4 [facility] Comment on above: Performed By: #### L 501.6710, L500.2500, L100.0100, L101.9900 ####[facility] [place] [address] [place], [address] RDW SD 41.1 fl Normal 35.1-43.9 [facility] [place] Comment on above: Performed By: #### L 501.6710, L500.2500, L100.0100, L101.9900 ####[facility] [place] [address] [place], [address] WBC (Bld) [#/Vol] 10.5 10*3/uL Normal 4.4-11.0 [facility] Comment on above: Performed By: #### L 501.6710, L500.2500, L100.0100, L101.9900 ####[facility] [place] [address] [place], [address] CRPon 01-08-2023 C-REACTIVE PROT 207.00 mg/L High 0.0-3.0 [facility] [place] Comment on above: Result Comment: C-Re active Protein (CRP) provides useful information for thediagnosis, therapy and monitoring of inflammatory processesand associated diseases. For the evaluation of Relative Riskfor Cardiovascular Disease, a High Sensitivity CRP (HSCRP)should be ordered. Performed By: #### L 501.6710, L500.2500, L100.0100, L101.9900 ####[facility] [place] [address] [place], [address] Erythrocyte Sed Rateon 01-08 SED RATE 76 mm/hr High 0-30 [facility] [place] Comment on above: Performed By: #### L 501.6710, L500.2500, L100.0100, L101.9900 ####[facility] [place] [address] [place], [address] Urine Cultureon 01-08-2023 URC Culture exhibits no growth. Normal [facility] [place] Comment on above: Performed By: #### L 400.0001, M100.2200 ####[facility] [place] [address] [place], [address] Assessment of wrist artery p atency prior to arterial punctureOrdered By: Tasha Kim on 01-07-2023 Arterial patency Wrist artery --pre arterial puncture Positive [facility] [place] BNP,B-Type NATRIURETIC PEPTI Romel 01-07-2023 Natriuretic peptide B (Bld) [Mass/Vol] 133.3 pg/mL High 0-100 [facility] [place] Comment on above: Performed By: #### L 506.1000, L503.0105, L503.6620, L506.0250, L101.9900, L501.6710, L509.7000, L501.9520, L506.0400 ####[facility] [place] [address] [place], [address] Base excessOrdered By: Tasha Kim on 01-07-2023 Base excess Calc (BldV) [Moles/Vol] -1 mmol/L -2-2 [facility] [place] Basic Metabolic Profile (BMP )on 01-07-2023 BUN/CRE 17.4 RATIO Normal 10-20 [facility] [place] Comment on above: Order Comment: GETTI NG FLUIDS, SHE IS VERY ANXIOUS AND NURSE WANTS US TOWAIT A LITTLE BIT UNTIL SHE CALMS DOWN. Performed By: #### L 500.2500 ####[facility] [place] [address] [facility] [id number] [place],Total 7.9 mg/dL Low 8.5-10.1 [facility] [place] Comment on above: Order Comment: GETTI NG FLUIDS, SHE IS VERY ANXIOUS AND NURSE WANTS US TOWAIT A LITTLE BIT UNTIL SHE CALMS DOWN. Performed By: #### L 500.2500 ####[facility] [place] [address] [place], [address] Chloride [Moles/Vol] 97 mmol/L Low 98-107 [facility] Comment on above: Order Comment: GETTI NG FLUIDS, SHE IS VERY ANXIOUS AND NURSE WANTS US TOWAIT A LITTLE BIT UNTIL SHE CALMS DOWN. Performed By: #### L 500.2500 ####[facility] [place] [address] [facility] [phone] CO2 [Moles/Vol] 14.0 mmol/L Low 21.0-32.0 [facility] [place] Comment on above: Order Comment: GETTI NG FLUIDS, SHE IS VERY ANXIOUS AND NURSE WANTS US TOWAIT A LITTLE BIT UNTIL SHE CALMS DOWN. Performed By: #### L 500.2500 ####[facility] [place] [address] [place] [address] Creatinine [Mass/Vol] 1.78 mg/dL High 0.55-1.02 [facility] Comment on above: Order Comment: GETTI NG FLUIDS, SHE IS VERY ANXIOUS AND NURSE WANTS US TOWAIT A LITTLE BIT UNTIL SHE CALMS DOWN. Result Comment: The validity of the calculated GFR GFRAA in patients over70 years has not been determined. Clinical correlation isessential. Performed By: #### L 500.2500 ####[facility] [place] [address] [place] [address] ECRCL 30.62 ml/min Normal [facility] [place] Comment on above: Order Comment: GETTI NG FLUIDS, SHE IS VERY ANXIOUS AND NURSE WANTS US TOWAIT A LITTLE BIT UNTIL SHE CALMS DOWN. Performed By: #### L 500.2500 ####[facility] [place] [address] [facility] [address] EST GFR - AA 37 mL/min Low >60 [facility] [place] Comment on above: Order Comment: GETTI NG FLUIDS, SHE IS VERY ANXIOUS AND NURSE WANTS US TOWAIT A LITTLE BIT UNTIL SHE CALMS DOWN. Result Comment: Afri can Hungarian GFR Calc Performed By: #### L 500.2500 ####[facility] [place] [address] [place] [id number] GAP 17 High 5-15 [facility] [place] Comment on above: Order Comment: GETTI NG FLUIDS, SHE IS VERY ANXIOUS AND NURSE WANTS US TOWAIT A LITTLE BIT UNTIL SHE CALMS DOWN. Performed By: #### L 500.2500 ####[facility] [place] [address] [place], [place], [phone] GFR/1.73 sq M.predicted among non-blacks MDRD (S/P/Bld) [Vol rate/Area] 31 mL/min/{1.73_m2} Low >60 [facility] [place] Comment on above: Order Comment: GETTI NG FLUIDS, SHE IS VERY ANXIOUS AND NURSE WANTS US TOWAIT A LITTLE BIT UNTIL SHE CALMS DOWN. Result Comment: Non- GFR Calc Performed By: #### L 500.2500 ####[facility] [place] [address] [place], [place], [id number] Glucose [Mass/Vol] 259 mg/dL High 74-106 [facility] Comment on above: Order Comment: GETTI NG FLUIDS, SHE IS VERY ANXIOUS AND NURSE WANTS US TOWAIT A LITTLE BIT UNTIL SHE CALMS DOWN. Result Comment: Gluc ose result greater than or equal to 200 mg/dLsuggests DIABETES MELLITUS per A.D.A. criteria. Performed By: #### L 500.2500 ####[facility] [place] [address] [place], [place], [id number] Potassium [Moles/Vol] 4.0 mmol/L Normal 3.5-5.1 [facility] Comment on above: Order Comment: GETTI NG FLUIDS, SHE IS VERY ANXIOUS AND NURSE WANTS US TOWAIT A LITTLE BIT UNTIL SHE CALMS DOWN. Performed By: #### L 500.2500 ####[facility] [place] [address] [place], [address] Sodium [Moles/Vol] 128 mmol/L Low 136-145 [facility] Comment on above: Order Comment: GETTI NG FLUIDS, SHE IS VERY ANXIOUS AND NURSE WANTS US TOWAIT A LITTLE BIT UNTIL SHE CALMS DOWN. Performed By: #### L 500.2500 ####[facility] [place] 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 Performed By: #### L 500.2500 ####[facility] [place] [address] [place], [address] BUN/CRE 22.2 RATIO High 10-20 [facility] [place] Comment on above: Performed By: #### L 500.2500 ####[facility] [place] [address] [place], [address] Urea nitrogen [Mass/Vol] 39 mg/dL High 7-18 [facility] [place] Comment on above: Performed By: #### L 500.2500 ####[facility] [place] [address], [address] BUN/CRE 21.8 RATIO High 10-20 [facility] [place] Comment on above: Performed By: #### L 100.0100, L500.2500 ####[facility] [place] [address] [place], [address] [place],Total 7.8 mg/dL Low 8.5-10.1 [facility] [place] Comment on above: Performed By: #### L 100.0100, L500.2500 ####[facility] [place] [address] [place], [address] Chloride [Moles/Vol] 99 mmol/L Normal 98-107 [facility] Comment on above: Performed By: #### L 100.0100, L500.2500 ####[facility] [place] [address] [place], [address] CO2 [Moles/Vol] 25.0 mmol/L Normal 21.0-32.0 [facility] [place] Comment on above: Performed By: #### L 100.0100, L500.2500 ####[facility] [place] [address] [place], [address] Creatinine [Mass/Vol] 1.74 mg/dL High 0.55-1.02 [facility] Comment on above: Result Comment: The validity of the calculated GFR GFRAA in patients over70 years has not been determined. Clinical correlation isessential. Performed By: #### L 100.0100, L500.2500 ####[facility] [place] [address] [place], [address] ECRCL 31.33 ml/min Normal [facility] [place] Comment on above: Performed By: #### L 100.0100, L500.2500 ####[facility] [place] [address] [place], [address] EST GFR - AA 38 mL/min Low >60 [facility] [place] Comment on above: Result Comment: Afri can Hungarian GFR Calc Performed By: #### L 100.0100, L500.2500 ####[facility] [place] [address] [place], [address] GAP 5 Normal 5-15 [facility] [place] Comment on above: Performed By: #### L 100.0100, L500.2500 ####[facility] [place] [address] [place], [address] GFR/1.73 sq M.predicted among non-blacks MDRD (S/P/Bld) [Vol rate/Area] 32 mL/min/{1.73_m2} Low >60 [facility] [place] Comment on above: Result Comment: Non- GFR Calc Performed By: #### L 100.0100, L500.2500 ####[facility] [place] [address] [place], [address] Glucose [Mass/Vol] 210 mg/dL High 74-106 [facility] Comment on above: Result Comment: Gluc ose result greater than or equal to 200 mg/dLsuggests DIABETES MELLITUS per A.D.A. criteria. Performed By: #### L 100.0100, L500.2500 ####[facility] [place] [address] [place], [address] Potassium [Moles/Vol] 3.7 mmol/L Normal 3.5-5.1 [facility] Comment on above: Performed By: #### L 100.0100, L500.2500 ####[facility] [place] [address] [place], [address] Sodium [Moles/Vol] 129 mmol/L Low 136-145 [facility] Comment on above: Performed By: #### L 100.0100, L500.2500 ####[facility] [place] [address] [place], [address] Urea nitrogen [Mass/Vol] 38 mg/dL High 7-18 [facility] [place] Comment on above: Performed By: #### L 100.0100, L500.2500 ####[facility] [place] [address] [place], [address] Basophil percentageOrdered B y: Tasha Kim on 01-07-2023 Lactate [Moles/Vol] 1.8 mmol/L 0.4-2.0 [facility] Basophil percentage 0-5 SEEN /hpf 0-5 [facility] Basophil percentage 21.4 mmol/L 22-26 [facility] Basophils/100 WBC (Bld) 99 % 95-99 [facility] Bedside Glucoseon 01-07-2023 FINGERSTICK GLU 265 mg/dL High 74-106 [facility] [place] Comment on above: Result Comment: MARYAM GEMENT OF PATIENT CARE PER NURSING PROTOCOL Performed By: #### L 501.080 ####[facility] [place] [address] [place], [address] FINGERSTICK GLU 352 mg/dL High 74-106 [facility] [place] Comment on above: Result Comment: MARYAM GEMENT OF PATIENT CARE PER NURSING PROTOCOL Performed By: #### L 501.080 ####[facility] [place] [address] [place], [address] FINGERSTICK GLU 219 mg/dL High 74-106 [facility] [place] Comment on above: Result Comment: MARYAM GEMENT OF PATIENT CARE PER NURSING PROTOCOL Performed By: #### L 501.080 ####[facility] [place] [address] [place], [address] FINGERSTICK GLU 243 mg/dL High 74-106 [facility] [place] Comment on above: Result Comment: MARYAM GEMENT OF PATIENT CARE PER NURSING PROTOCOL Performed By: #### L 501.080 ####[facility] [place] [address] [place], [address] Bilirubin Test strip Ql (U)O rdered By: Tasha Kim on 01-07-2023 Bilirubin Ql (U) Negative Negative [facility] [place] [facility] Positive Normal [facility] [place] Comment on above: Performed By: #### L 9000.0800 ####[facility] [place] [address] [place], [address] Base excess Calc (Bld) [Moles/Vol] -1 mmol/L Normal -2 to +2 [facility] [place] Comment on above: Performed By: #### L 9000.0800 ####[facility] [place] [address] [place], [address] Blood Gas Type ART Normal [facility] [place] Comment on above: Performed By: #### L 9000.0800 ####[facility] [place] [address] [place], [address] CO2 [Moles/Vol] 22 mmol/L Normal [facility] [place] Comment on above: Performed By: #### L 9000.0800 ####[facility] [place] [address] [place], [address] FI02 3.0 Normal [facility] [place] Comment on above: Performed By: #### L 0.0800 ####[facility] [place] [address] [place], [address] HCO3 (Bld) [Moles/Vol] 21.4 mmol/L Low 22-26 [facility] Comment on above: Performed By: #### L 0.0800 ####[facility] [place] [address] [place], [address] Mode Not entered Normal [facility] [place] Comment on above: Performed By: #### L 0.0800 ####[facility] [place] [address] [place], [address] O2 Delivery Dev Cannula Normal [facility] [place] Comment on above: Performed By: #### L 0.0800 ####[facility] [place] [address] [place], [address] pCO2 25.2 mmHg Low 35-45 [facility] [place] Comment on above: Performed By: #### L 0.0800 ####[facility] [place] [address] [place], [address] pH (Bld) 7.54 [pH] High 7.35-7.45 [facility] [place] Comment on above: Performed By: #### L 9000.0800 ####[facility] [place] [address] [place], [address] PO2 127 mmHG High 75-100 [facility] [place] Comment on above: Performed By: #### L 9000.0800 ####[facility] [place] [address] [place], [address] SITE L Radial Normal [facility] [place] Comment on above: Performed By: #### L 9000.0800 ####[facility] [place] [address] [place], [address] SO2 99 Normal 95-99 [facility] [place] Comment on above: Performed By: #### L 9000.0800 ####[facility] [place] [address] [place], [address] Blood platelet adequacy dete ction by light microscopyOrdered By: Tasha Kim on 01-07-2023 Platelets LM Ql (Bld) ADEQUATE ADEQ [facility] CBC W/Diff, Automatedon 12-11 PLT EST ADEQUATE Normal ADEQ [facility] [place] Comment on above: Performed By: #### L 100.0100, L500.2500 ####[facility] [place] [address] [place], [address] CO2 (BldA) [Partial pressure ]Ordered By: Tasha Kim on 01-07-2023 CO2 (Bld) [Partial pressure] 25.2 mm[Hg] 35-45 [facility] [place] CRPon 01-07-2023 C-REACTIVE PROT 237.00 mg/L High 0.0-3.0 [facility] [place] Comment on above: Result Comment: C-Re active Protein (CRP) provides useful information for thediagnosis, therapy and monitoring of inflammatory processesand associated diseases. For the evaluation of Relative Riskfor Cardiovascular Disease, a High Sensitivity CRP (HSCRP)should be ordered. Performed By: #### L 506.1000, L503.0105, L503.6620, L506.0250, L101.9900, L501.6710, L509.7000, L501.9520, L506.0400 ####[facility] [place] [address], [address] Creatinine, Urine (random)on 01-07-2023 UR CREAT 71.70 mg/dL Normal NO RANGE EST. [facility] [place] Comment on above: Performed By: #### L 501.7400, L500.9400, L501.1200, L502.0715 ####[facility] [place] [address] [place], [address] Culture, urineOrdered By: Talia Kim on 01-07-2023 Bacteria identified Cx Nom (U) Culture exhibits no growth. [facility] [place] Erythrocyte Sed Rateon 01-07 SED RATE 70 mm/hr High 0- [facility] [place] Comment on above: Performed By: #### L 506.1000, L503.0105, L503.6620, L506.0250, L101.9900, L501.6710, L509.7000, L501.9520, L506.0400 ####[facility] [place] [address] [place], [place], [id number] Folates, (Folic Acid)on 12-11 FOLATES 16.40 ng/mL Normal 3.1-55.4 [facility] [place] Comment on above: Performed By: #### L 506.1000, L503.0105, L503.6620, L506.0250, L101.9900, L501.6710, L509.7000, L501.9520, L506.0400 ####[facility] [place] [address] [place], [address] Ketones Test strip Ql (U)Ord ered By: Tasha Kim on 01-07-2023 Ketones Ql (U) Negative Negative [facility] [place] Laboratory - Chemistry and C hemistry - challengeOrdered By: Tasha Kim on 01-07-2023 Free T4 [Mass/Vol] 1.23 ng/dL 0.76-1.46 [facility] Cobalamin (Vitamin B12) [Mass/Vol] 240 pg/mL 211-911 [facility] [place] Natriuretic peptide B (Bld) [Mass/Vol] 133.3 pg/mL 0-100 [facility] [place] Laboratory - Microbiology an d Antimicrobial susceptibilityOrdered By: Tasha Kim on 01-07-2023 Bacteria identified Cx Nom (Bld) No growth in 5 days. [facility] [place] Lactic Acidon 01-07-2023 Lactate [Moles/Vol] 1.8 mmol/L Normal 0.4-1.9 [facility] Comment on above: Order Comment: Y Performed By: #### L 503.6005 ####[facility] [place] [address] [place], [address] M R Staph Aureus DNA by PCRo n 01-07-2023 MRSA DNA ASSAY Negative Normal Negative [facility] [place] Comment on above: Performed By: #### L 8200.1000 ####[facility] [place] [address] [place], [place], [phone] Mucus LM Ql (Urine sed)Order ed By: Tasha Kim on 01-07-2023 Mucus Ql (Urine sed) 0 SEEN /hpf [facility] Nitrite Test strip Ql (U)Ord ered By: Tasha Kim on 01-07-2023 Nitrite Ql (U) Negative Negative [facility] [place] No Panel InformationOrdered By: Tasha Kim on 01-07-2023 Methicillin-Resist S.aureus DNA PCR Negative Negative [facility] [place] Urine Potassium 22.0 mmol/L Not Establ. [facility] [place] Urine Urea Nitrogen 691 mg/dL NO RANGE EST. [facility] [place] Thyroid Stimulating Hormone (TSH) 0.75 uIU/mL 0.358-3.74 [facility] [place] Vitamin D 25-Hydroxy 8.1 ng/mL [facility] Comment on above: Vitamin D 25([place]) Sta tus Range Deficiency <20 ng/mL (50nmol/L) Insufficiency 20 - 30 ng/mL (50 - 75 nmol/L) Sufficiency 30 - 100 ng/mL (75 - 250 nmol/L) Toxicity >100 ng/mL (>250 nmol/L) Blood Gas Oxygen Percent 3.0 [facility] [place] Blood Gas Sample Site L Radial [facility] Blood Gas Specimen Type ART W [facility] Blood Gas Total CO2 22 mmol/L [facility] Blood Gas Vent Mode Not entered [facility] Oxygen Delivery Device Cannula [facility] Osmolality, Serumon 01-08-20 23 OSMOLALITY,SER 284 mOsm/KG Normal 275-295 [facility] [place] Comment on above: Performed By: #### L 501.7300 ####[facility] [place] [address] [place], [place], [id number] Osmolality, Urineon 01-08-20 23 OSMOLALITY,UR 401 mOsm/KG Normal [facility] [place] Comment on above: Result Comment: Norm al Urine Reference Ranges Random: 50 - 1200 mOsm/kg H20 depending on fluid intake Random: >850 mOsm/kg after 12 hour fluid restriction 24 hour: 300 - 900 mOsm/kg H2O Performed By: #### L 501.7400, L500.9400, L501.1200, L502.0715 ####[facility] [place] [address] [place], [place], [id number] Oxygen (BldA) [Partial press ure]Ordered By: Tasha Kim on 01-07-2023 Oxygen (Bld) [Partial pressure] 127 mmHG 75-100 [facility] [place] Procalcitoninon 01-07-2023 Procalcitonin 12.11 ng/mL High 0.00-0.09 [facility] [place] Comment on above: Result Comment: A pr ocalcitonin (PCT) level above 2.0 ng/mL on the first day of ICU admission is associated with a high risk for progression to severe sepsis and/or septic shock. A PCT level below 0.5 ng/mL on the first day of ICU admission is associated with a low risk for progression to severe and/or septic shock. Note: Concentrations <0.5 ng/mL do not exclude an infection on account of localized infections (without systemic signs) which can be associated with such low concentrations, or a systemic infection in its initial stages (<6 hours). Furthermore, increased procalcitonin can occur without infection. PCT concentrations between 0.5 and 2.0 ng/mL should be interpreted taking into account the patient's history. It is recommended to retest PCT within 6-24 hours if any concentrations <2 ng/mL are obtained. Performed By: #### L 506.1000, L503.0105, L503.6620, L506.0250, L101.9900, L501.6710, L509.7000, L501.9520, L506.0400 ####[facility] [place] [address] [facility] [address] [place], [place], [address] Protein Test strip Ql (U)Ord ered By: Tasha Kim on 01-07-2023 Protein Ql (U) 30 mg/dl Negative [facility] [place] Serum or plasma folate measu rement (mass/volume)Ordered By: Tasha Kim on 01-07-2023 Folate [Mass/Vol] 16.40 ng/mL 3.1-55.4 [facility] Squamous epithelial cells de tection in urine sediment by light microscopyOrdered By: Tasha Kim on 01-07-2023 Epithelial cells.squamous LM Ql (Urine sed) 0-5 SEEN /hpf 5-10 [facility] [place] T4 Free Directon 01-07-2023 T4 FREE DIRECT 1.23 ng/dL Normal 0.76-1.46 [facility] [place] Comment on above: Performed By: #### L 506.1000, L503.0105, L503.6620, L506.0250, L101.9900, L501.6710, L509.7000, L501.9520, L506.0400 ####[facility] [place] [address] [place], [place], [id number] Thin prep Papanicolaou smear with manual screeningOrdered By: Tasha Kim on 01-07-2023 Thin prep Papanicolaou smear with manual screening 14 mmol/L Not Establ. [facility] [place] Thin prep Papanicolaou smear with manual screening 284 mOsm/KG 275-295 [facility] [place] Thyroid Stim Hormone (TSH)on 01-07-2023 TSH 0.75 uIU/mL Normal 0.358-3.74 [facility] [place] Comment on above: Performed By: #### L 506.1000, L503.0105, L503.6620, L506.0250, L101.9900, L501.6710, L509.7000, L501.9520, L506.0400 ####[facility] [place] [address] [place], [address] Urea Nitrogen, Urineon 01-07 URINE UREA 691 mg/dL Normal NO RANGE EST. [facility] [place] Comment on above: Performed By: #### L 501.7400, L500.9400, L501.1200, L502.0715 ####[facility] [place] [address] [place], [address] Urinalysis, Completeon 01-07 BACTERIA RARE Normal None Seen [facility] [place] Comment on above: Order Comment: CLEAN CATCH Performed By: #### L 400.0001, M100.2200 ####[facility] [place] [address] [place], [address] EPI,SQUAMOUS 0-5 SEEN Normal 5-10 [facility] [place] Comment on above: Order Comment: CLEAN CATCH Performed By: #### L 400.0001, M100.2200 ####[facility] [place] [address] [place], [address] RBC 0-5 SEEN Normal 0-5 [facility] [place] Comment on above: Order Comment: CLEAN CATCH Performed By: #### L 400.0001, M100.2200 ####[facility] [place] [address] [place], [address] WBC 0-5 SEEN Normal 0-5 [facility] [place] Comment on above: Order Comment: CLEAN CATCH Performed By: #### L 400.0001, M100.0 ####[facility] [place] [address] [place], [address] Mucus Ql (Urine sed) 0 SEEN Normal [facility] Comment on above: Order Comment: CLEAN CATCH Performed By: #### L 400.0001, M100.2200 ####[facility] [place] [address] [place], [address] Urine Electrolytes- RandomOr dered By: Tasha Kim on 01-07-2023 Sodium (U) [Moles/Vol] 26 mmol/L Normal Not Establ. [facility] Comment on above: Performed By: #### L 501.7400, L500.9400, L501.1200, L502.0715 ####[facility] [place] [address] [place], [address] Urine Electrolytes- Randomon 01-07-2023 UR CL 14 mmol/L Normal Not Establ. [facility] [place] Comment on above: Performed By: #### L 501.7400, L500.9400, L501.1200, L502.0715 ####[facility] [place] [address] [place], [place], [address] UR K 22.0 mmol/L Normal Not Establ. [facility] [place] Comment on above: Performed By: #### L 501.7400, L500.9400, L501.1200, L502.0715 ####[facility] [place] [address] [place], [place], [address] Urine blood detectionOrdered By: Tasha Kim on 01-07-2023 RBC Ql (U) 150 /ul Negative [facility] [place] RBC Ql (U) 0-5 SEEN /hpf 0-5 [facility] [place] Urine clarityOrdered By: Dalila Kim on 01-07-2023 Clarity (U) Sl. Cloudy Clear [facility] [place] Urine color determinationOrd ered By: Tasha Kim on 01-07-2023 Color (U) Yellow Yellow [facility] [place] Urine creatinine measurement (mass/volume)Ordered By: Tasha Kim on 01-07-2023 Creatinine (U) [Mass/Vol] 71.70 mg/dL NO RANGE EST. [facility] [place] Urine glucose detectionOrder ed By: Tasha Kim on 01-07-2023 Glucose Ql (U) 100 mg/dl Normal [facility] [place] Urine leukocyte esterase det ection by dipstickOrdered By: Tasha Kim on 01-07-2023 Leukocyte esterase Test strip Ql (U) 100 /ul Negative [facility] [place] Urine osmolality measurement Ordered By: Tasha Kim on 01-07-2023 Osmolality (U) [Osmolality] 401 mOsm/KG >50 [facility] [place] Comment on above: Normal Urine Referen ce Ranges Random: 50 - 1200 mOsm/kg H20 depending on fluid intake Random: >850 mOsm/kg after 12 hour fluid restriction 24 hour: ~300 - 900 mOsm/kg H2O Urine pHOrdered By: Tasha yeung on 01-07-2023 pH (U) 6.0 [pH] 5.0 - 8.0 [facility] [place] Urine sediment bacteria coun t by microscopy (number/high power field)Ordered By: Tasha Kim on 01-07-2023 Bacteria LM.HPF (Urine sed) [#/Area] RARE /hpf None Seen [facility] [place] Urine specific gravity measu rementOrdered By: Tasha Kim on 01-07-2023 Specific gravity (U) [Rel density] 1.015 1.002-1.030 [facility] [place] Urobilinogen Auto test strip Ql (U)Ordered By: Tasha Kim on 01-07-2023 Urobilinogen Ql (U) Normal mg/dl Normal [facility] Vitamin B12on 01-07-2023 Cobalamin (Vitamin B12) [Mass/Vol] 240 pg/mL Normal 211-911 [facility] [place] Comment on above: Performed By: #### L 506.1000, L503.0105, L503.6620, L506.0250, L101.9900, L501.6710, L509.7000, L501.9520, L506.0400 ####[facility] [place] [address] [place], [place], [id number] Vitamin D,25 Hydroxyon 01-07 Vitamin D 25-OH 8.1 ng/mL Normal [facility] [place] Comment on above: Result Comment: Michelle min D 25(OH) Status Range Deficiency <20 ng/mL (50nmol/L) Insufficiency 20 - 30 ng/mL (50 - 75 nmol/L) Sufficiency 30 - 100 ng/mL (75 - 250 nmol/L) Toxicity >100 ng/mL (>250 nmol/L) Performed By: #### L 506.1000, L503.0105, L503.6620, L506.0250, L101.9900, L501.6710, L509.7000, L501.9520, L506.0400 ####[facility] [place] [address] [place], [place], [id number] pH measurementOrdered By: Talia Kim on 01-07-2023 pH (Unsp spec) 7.54 [pH] 7.35-7.45 [facility] [place] 12 Lead EKGon 01-06-2023 12 Lead EKG Normal [facility] [place] Basic Metabolic Profile (BMP )on 01-06-2023 BUN/CRE 21.5 RATIO High 10-20 [facility] [place] Comment on above: Performed By: #### L 100.0500, L500.2500 ####[facility] [place] [address] [place], [address] CA,Total 7.8 mg/dL Low 8.5-10.1 [facility] [place] Comment on above: Performed By: #### L 100.0500, L500.2500 ####[facility] [place] [address], [address] Chloride [Moles/Vol] 97 mmol/L Low 98-107 [facility] Comment on above: Performed By: #### L 100.0500, L500.2500 ####[facility] [place] [address] [place], [address] CO2 [Moles/Vol] 22.0 mmol/L Normal 21.0-32.0 [facility] [place] Comment on above: Performed By: #### L 100.0500, L500.2500 ####[facility] [place] [address] [place], [address] Creatinine [Mass/Vol] 1.44 mg/dL High 0.55-1.02 [facility] Comment on above: Result Comment: The validity of the calculated GFR GFRAA in patients over70 years has not been determined. Clinical correlation isessential. Performed By: #### L 100.0500, L500.2500 ####[facility] [place] [address] [place], [address] ECRCL 37.85 ml/min Normal [facility] [place] Comment on above: Performed By: #### L 100.0500, L500.2500 ####[facility] [place] [address] [place], [address] EST GFR - AA 48 mL/min Low >60 [facility] [place] Comment on above: Performed By: #### L 100.0500, L500.2500 ####[facility] [place] [address] [place], [address] GAP 12 Normal 5-15 [facility] [place] Comment on above: Performed By: #### L 100.0500, L500.2500 ####[facility] [place] [address] [place], [address] GFR/1.73 sq M.predicted among non-blacks MDRD (S/P/Bld) [Vol rate/Area] 40 mL/min/{1.73_m2} Low >60 [facility] [place] Comment on above: Performed By: #### L 100.0500, L500.2500 ####[facility] [place] [address] [place], [address] Glucose [Mass/Vol] 343 mg/dL High 74-106 [facility] Comment on above: Result Comment: Gluc ose result greater than or equal to 200 mg/dLsuggests DIABETES MELLITUS per A.D.A. criteria. Performed By: #### L 100.0500, L500.2500 ####[facility] [place] [address] [place], [address] Potassium [Moles/Vol] 4.3 mmol/L Normal 3.5-5.1 [facility] Comment on above: Performed By: #### L 100.0500, L500.2500 ####[facility] [place] [address] [place], [address] Sodium [Moles/Vol] 131 mmol/L Low 136-145 [facility] Comment on above: Performed By: #### L 100.0500, L500.2500 ####[facility] [place] [address] [place], [address] Urea nitrogen [Mass/Vol] 31 mg/dL High 7-18 [facility] [place] Comment on above: Performed By: #### L 100.0500, L500.2500 ####[facility] [place] [address] [place], [address] Bedside Glucoseon 01-06-2023 FINGERSTICK GLU 327 mg/dL High 74-106 [facility] [place] Comment on above: Result Comment: MARYAM GEMENT OF PATIENT CARE PER NURSING PROTOCOL Performed By: #### L 501.080 ####[facility] [place] [address] [place], [address] FINGERSTICK GLU 273 mg/dL High [facility]106 [facility] [place] Comment on above: Result Comment: MARYAM GEMENT OF PATIENT CARE PER NURSING PROTOCOL Performed By: #### L 501.080 ####[facility] [place] [address] [place], [address] FINGERSTICK GLU 358 mg/dL High [address] [place] [address] Comment on above: Result Comment: MARYAM GEMENT OF PATIENT CARE PER NURSING PROTOCOL Performed By: #### L 501.080 ####[facility] [place] [address] [place], [address] FINGERSTICK GLU 281 mg/dL High -[address] [place] [address] Comment on above: Result Comment: MARYAM GEMENT OF PATIENT CARE PER NURSING PROTOCOL Performed By: #### L 501.080 ####[facility] [place] [address] [place], [address] FINGERSTICK GLU 358 mg/dL High [address] [place] [address] Comment on above: Result Comment: MARYAM GEMENT OF PATIENT CARE PER NURSING PROTOCOL Performed By: #### L 501.080 ####[facility] [place] [address] [place], [address] FINGERSTICK GLU 351 mg/dL High [address] [place] [address] Comment on above: Result Comment: MARYAM GEMENT OF PATIENT CARE PER NURSING PROTOCOL Performed By: #### L 501.080 ####[facility] [place] [address] [place], [address] CBC-Complete Blood Cnt No Di ffon 01-06-2023 Erythrocyte distribution width (RBC) [Ratio] 12.9 % Normal 11.6-14.6 [facility] [place] Comment on above: Performed By: #### L 100.0500, L500.2500 ####[facility] [place] [address] [place], [address] Hematocrit (Bld) [Volume fraction] 29.7 % Low 37-47 [facility] [place] Comment on above: Performed By: #### L 100.0500, L500.2500 ####[facility] [place] [address] [place] [place], [address] Hemoglobin (Bld) [Mass/Vol] 9.3 g/dL Low 12.0-15.0 [facility] [place] Comment on above: Performed By: #### L 100.0500, L500.2500 ####[facility] [place] [address] [place], [address] MCH (RBC) [Entitic mass] 27.9 pg Normal 27.0-32.0 [facility] [place] Comment on above: Performed By: #### L 100.0500, L500.2500 ####[facility] [place] [address] [place], [address] MCHC (RBC) [Mass/Vol] 31.3 g/dL Low 32-36 [facility] Comment on above: Performed By: #### L 100.0500, L500.2500 ####[facility] [place] [address] [place], [address] MCV (RBC) [Entitic vol] 89.2 fL Normal 81-99 [facility] Comment on above: Performed By: #### L 100.0500, L500.2500 ####[facility] [place] [address] [place], [address] Platelet mean volume (Bld) [Entitic vol] 9.8 fL Normal 6.2-12.0 [facility] [place] Comment on above: Performed By: #### L 100.0500, L500.2500 ####[facility] [place] [address] [place], [address] Platelets (Bld) [#/Vol] 240 10*3/uL Normal 150-450 [facility] [place] Comment on above: Performed By: #### L 100.0500, L500.2500 ####[facility] [place] [address] [place], [address] RBC (Bld) [#/Vol] 3.33 10*6/uL Low 4.2-5.4 [facility] Comment on above: Performed By: #### L 100.0500, L500.2500 ####[facility] [place] [address] [place], [address] RDW SD 42.0 fl Normal 35.1-43.9 [facility] [place] Comment on above: Performed By: #### L 100.0500, L500.2500 ####[facility] [place] [address] [place], [address] WBC (Bld) [#/Vol] 13.6 10*3/uL High 4.4-11.0 [facility] Comment on above: Performed By: #### L 100.0500, L500.2500 ####[facility] [place] [address] [place], [address] Cardiac Cath Diagnosticon Cardiac Cath Diagnostic Normal [facility] Consultation - Cardiologyon 01-06-2023 Consultation - Cardiology Normal [facility] Laboratory - CoagulationOrde red By: Atul Cardozo on 01-06-2023 aPTT Coag (Bld) [Time] 39.4 s 24.1-36.2 [facility] Partial Thromboplast Timeon 01-06-2023 aPTT Coag (Bld) [Time] 39.4 s High 24.1-36.2 [facility] Comment on above: Performed By: #### L 300.4310 ####[facility] [place] [address] [place], [address] aPTT Coag (Bld) [Time] 44.5 s High 24.1-36.2 [facility] Comment on above: Performed By: #### L 300.4310 ####[facility] [address] [place], [place], [address] 12 Lead EKGon 01-05-2023 12 Lead EKG Normal [facility] 12 Lead EKG Normal [facility] Absolute lymphocyte countOrd ered By: Harjit Cliftonne on 01-05-2023 Lymphocytes Auto (Unsp spec) [#/Vol] 0.42 10*3/uL 0.83-4.51 [facility] [place] BNP,B-Type NATRIURETIC PEPTI Romel 01-05-2023 Natriuretic peptide B (Bld) [Mass/Vol] 276.9 pg/mL High 0-100 [facility] [place] Comment on above: Performed By: #### L 501.5420, L500.4050, L100.0100, L503.6620 ####[facility] [place] [address] [place], [place], [address] Basophil percentageOrdered B y: Harjit Encinasehne on 01-05-2023 Basophils/100 WBC (Bld) 0.3 % 0-1 [facility] Bilirubin [Mass/Vol] 1.10 mg/dL 0.20-1.00 [facility] Comment on above: For patients on eltr ombopag therapy, use of [place] TBIL is not recommended. Chloride [Moles/Vol] 100 mmol/L 98-107 [facility] Eosinophils/100 WBC (Bld) 0.1 % 0-5 [facility] [place] Glucose [Mass/Vol] 335 mg/dL 74-106 [facility] Comment on above: Glucose result great er than or equal to 200 mg/dLsuggests DIABETES MELLITUS per A.D.A. criteria. Neutrophils (Bld) [#/Vol] 13.3 10*3/uL 2.0-7.7 [facility] [place] Neutrophils/100 WBC (Bld) 89.6 % 47-70 [facility] [place] Potassium [Moles/Vol] 4.6 mmol/L 3.5-5.1 [facility] Protein [Mass/Vol] 7.2 g/dL 6.4-8.2 [facility] Sodium [Moles/Vol] 132 mmol/L 136-145 [facility] WBC (Bld) [#/Vol] 14.8 10*3/uL 4.4-11.0 [facility] Bedside Glucoseon 01-05-2023 FINGERSTICK GLU 371 mg/dL High 74-106 [facility] [place] Comment on above: Result Comment: MARYAM GEMENT OF PATIENT CARE PER NURSING PROTOCOL Performed By: #### L 501.080 ####[facility] [place] [address] [place], [address] FINGERSTICK GLU 348 mg/dL High 74-106 [facility] [place] Comment on above: Result Comment: MARYAM GEMENT OF PATIENT CARE PER NURSING PROTOCOL Performed By: #### L 501.080 ####[facility] [place] [address] [place], [address] Blood erythrocytes count (nu mber/volume)Ordered By: Harjit Vee on 01-05-2023 RBC (Bld) [#/Vol] 3.70 10*6/uL 4.2-5.4 [facility] Blood hemoglobin measurement (mass/volume)Ordered By: Harjit Vee on 01-05-2023 Hemoglobin (Bld) [Mass/Vol] 10.3 g/dL 12.0-15.0 [facility] [place] Blood lymphocytes/100 leukoc ytesOrdered By: Harjit Vee on 01-05-2023 Lymphocytes/100 WBC (Bld) 2.8 % 19-41 [facility] [place] Blood manual differential co mment interpretation (narrative result)Ordered By: Harjit Vee on 01-05-2023 Manual differential comment Liban (Bld) [Interp] SCANNED [facility] [place] Blood monocytes/100 leukocyt esOrdered By: Harjit Vee on 01-05-2023 Monocytes/100 WBC (Bld) 6.7 % 0-10 [facility] Blood platelet mean volumeOr dered By: Harjit Vee on 01-05-2023 Platelet mean volume (Bld) [Entitic vol] 9.7 fL 6.2-12.0 [facility] [place] CBC W/Diff, Automatedon 11-2 SMEAR COMMENT SCANNED Normal [facility] [place] Comment on above: Performed By: #### L 501.5425, L500.4050, L100.0100, L503.6620 ####[facility] [place] [address] [place], [address] CTA Chest W/WO Contraston CTA Chest W/WO Contrast Normal [facility] Chest 1 View (Portable)on Chest 1 View (Portable) Normal [facility] Comprehensive Metabolic Prof ilon 01-05-2023 Albumin [Mass/Vol] 2.7 g/dL Low 3.2-5.0 [facility] Comment on above: Order Comment: 1Y Performed By: #### L 501.5425, L500.4050, L100.0100, L503.6620 ####[facility] [place] [address] [place], [address] Albumin/Globulin [Mass ratio] 0.6 {ratio} Low 0.9-2.4 [facility] [place] Comment on above: Order Comment: 1Y Performed By: #### L 501.5425, L500.4050, L100.0100, L503.6620 ####[facility] [place] [address] [place], [address] ALK P 187 U/L High 45-117 [facility] [place] Comment on above: Order Comment: 1Y Performed By: #### L 501.5425, L500.4050, L100.0100, L503.6620 ####[facility] [place] [address] [place], [address] ALT [Catalytic activity/Vol] 41 U/L Normal 13-56 [facility] Comment on above: Order Comment: 1Y Performed By: #### L 501.5425, L500.4050, L100.0100, L503.6620 ####[facility] [place] [address] [place], [address] AST [Catalytic activity/Vol] 31 U/L Normal 15-37 [facility] Comment on above: Order Comment: 1Y Performed By: #### L 501.5425, L500.4050, L100.0100, L503.6620 ####[facility] [place] [address] [place], [address] Bilirubin [Mass/Vol] 1.10 mg/dL High 0.20-1.00 [facility] Comment on above: Order Comment: 1Y Result Comment: For patients on eltrombopag therapy, use of [place] TBIL is not recommended. Performed By: #### L 501.5425, L500.4050, L100.0100, L503.6620 ####[facility] [place] [address] [place], [address] BUN/CRE 21.5 RATIO High 10-20 [facility] [place] Comment on above: Order Comment: 1Y Performed By: #### L 501.5425, L500.4050, L100.0100, L503.6620 ####[facility] [place] [address] [place], [address] CA,Total 9.0 mg/dL Normal 8.5-10.1 [facility] [place] Comment on above: Order Comment: 1Y Performed By: #### L 501.5425, L500.4050, L100.0100, L503.6620 ####[facility] [place] [address] [place], [address] Chloride [Moles/Vol] 100 mmol/L Normal 98-107 [facility] Comment on above: Order Comment: 1Y Performed By: #### L 501.5425, L500.4050, L100.0100, L503.6620 ####[facility] [place] [address] [place], [address] CO2 [Moles/Vol] 24.0 mmol/L Normal 21.0-32.0 [facility] [place] Comment on above: Order Comment: 1Y Performed By: #### L 501.5425, L500.4050, L100.0100, L503.6620 ####[facility] [place] [address] [place], [address] Creatinine [Mass/Vol] 1.44 mg/dL High 0.55-1.02 [facility] Comment on above: Order Comment: 1Y Result Comment: The validity of the calculated GFR GFRAA in patients over70 years has not been determined. Clinical correlation isessential. Performed By: #### L 501.5425, L500.4050, L100.0100, L503.6620 ####[facility] [place] [address] [place], [address] ECRCL 37.85 ml/min Normal [facility] Comment on above: Order Comment: 1Y Performed By: #### L 501.5425, L500.4050, L100.0100, L503.6620 ####[facility] [place] [address] [place], [address] EST GFR - AA 48 mL/min Low >60 [facility] [place] Comment on above: Order Comment: 1Y Result Comment: Afri can Hungarian GFR Calc Performed By: #### L 501.5425, L500.4050, L100.0100, L503.6620 ####[facility] [place] [address] [place], [address] GAP 8 Normal 5-15 [facility] Comment on above: Order Comment: 1Y Performed By: #### L 501.5425, L500.4050, L100.0100, L503.6620 ####[facility] [place] [address] [place], [address] GFR/1.73 sq M.predicted among non-blacks MDRD (S/P/Bld) [Vol rate/Area] 40 mL/min/{1.73_m2} Low >60 [facility] [place] Comment on above: Order Comment: 1Y Result Comment: Non- GFR Calc Performed By: #### L 501.5425, L500.4050, L100.0100, L503.6620 ####[facility] [place] [address] [place], [address] Globulin (S) [Mass/Vol] 4.5 g/dL High 2.2-4.2 [facility] Comment on above: Order Comment: 1Y Performed By: #### L 501.5425, L500.4050, L100.0100, L503.6620 ####[facility] [place] [address] [place], [address] Glucose [Mass/Vol] 335 mg/dL High 74-106 [facility] Comment on above: Order Comment: 1Y Result Comment: Gluc ose result greater than or equal to 200 mg/dLsuggests DIABETES MELLITUS per A.D.A. criteria. Performed By: #### L 501.5425, L500.4050, L100.0100, L503.6620 ####[facility] [address] [place], [address] Potassium [Moles/Vol] 4.6 mmol/L Normal 3.5-5.1 [facility] Comment on above: Order Comment: 1Y Performed By: #### L 501.5425, L500.4050, L100.0100, L503.6620 ####[facility] [place] [address] [place], [address] Sodium [Moles/Vol] 132 mmol/L Low 136-145 [facility] Comment on above: Order Comment: 1Y Performed By: #### L 501.5425, L500.4050, L100.0100, L503.6620 ####[facility] [place] [address] [place], [address] T PROT 7.2 g/dL Normal 6.4-8.2 [facility] Comment on above: Order Comment: 1Y Performed By: #### L 501.5425, L500.4050, L100.0100, L503.6620 ####[facility] [place] [address] [place], [address] Urea nitrogen [Mass/Vol] 31 mg/dL High 7-18 [facility] Comment on above: Order Comment: 1Y Performed By: #### L 501.5425, L500.4050, L100.0100, L503.6620 ####[facility] [address] [place], [address] Determination of erythrocyte mean corpuscular volume (MCV)Ordered By: Harjit Vee on 01-05-2023 MCV (RBC) [Entitic vol] 89.7 fL 81-99 [facility] Echo Complete W/ Contraston 01-05-2023 Echo Complete W/ Contrast Normal [facility] Emergency Department Summary on 01-05-2023 Emergency Department Summary Normal [facility] Ferritinon 01-05-2023 Ferritin [Mass/Vol] 285 ng/mL High 8-252 [facility] Comment on above: Order Comment: Has P atient had X-rays with Contrast this admission? NN Performed By: #### L 503.6030, L503.0105, L503.6550, L506.0250 ####[facility] [place] [address] [place], [address] Folates, (Folic Acid)on 12-10 FOLATES 16.60 ng/mL Normal 3.1-55.4 [facility] [place] Comment on above: Order Comment: Has P atient had X-rays with Contrast this admission? NN Performed By: #### L 503.6030, L503.0105, L503.6550, L506.0250 ####[facility] [address] [place], [address] H AND P Exam - Hospitaliston 01-05-2023 H&P Exam - Hospitalist Normal [facility] Hematocrit Auto (Bld) [Volum e fraction]Ordered By: Harjit Vee on 01-05-2023 Hematocrit (Bld) [Volume fraction] 33.2 % 37-47 [facility] Hemoglobin A1con 01-05-2023 HbA1c (Bld) [Mass fraction] 10.4 % High 3.8-5.6 [facility] Comment on above: Result Comment: Norm al < 5.7 % Prediabetic 5.7 - 6.4 % Diabetic >or= 6.5 % Please note range changes. Performed By: #### L 501.9920 ####[facility] [address] [place], [address] INR in Blood by Coagulation assayOrdered By: Atul Cardozo on 01-05-2023 INR Coag (Bld) [Relative time] 1.1 {INR} [facility] Iron measurement (mass/mass) Ordered By: Atul Cardozo on 01-05-2023 Iron (Unsp spec) [Mass/Mass] 9 ug/dL 50-170 [facility] Iron+Iron Binding Capacityon 01-05-2023 Iron [Mass/Vol] 9 ug/dL Low 50-170 [facility] Comment on above: Order Comment: Has Julio C bishop had X-rays with Contrast this admission? NN Performed By: #### L 503.6030, L503.0105, L503.6550, L506.0250 ####[facility] [address] [place], [address] IRON SATURATION 3.5 Low 15.0-55.0 [facility] Comment on above: Order Comment: Has P edna had X-rays with Contrast this admission? NN Performed By: #### L 503.6030, L503.0105, L503.6550, L506.0250 ####[facility] [address] [place], [address] TIBC 256 ug/dL Normal 250-450 [facility] Comment on above: Order Comment: Has P atlaurie had X-rays with Contrast this admission? NN Performed By: #### L 503.6030, L503.0105, L503.6550, L506.0250 ####[facility] [address] [place], [address] L501.4020on 01-05-2023 TROPONIN-I HS 443 pg/mL Invalid Interpretation Code 3.0-54.0 [facility] Comment on above: Order Comment: 'TROP ' Serial specimen #1, #2 or #3: 3 Result Comment: Crit ical Result(s) Called at: 19:10:25 01/05/2023 by:Viviane LOMBARDO. Results read back by same. Please Note: New Test Units and Gender Specific Reference Ranges. For more information see Policy Stat Procedure [place] High Sensitivity Troponin (TNIH) and attachments. Performed By: #### L 501.4020 ####[facility] [address] [place], [address] TROPONIN-I HS 491 pg/mL Invalid Interpretation Code 3.0-54.0 [facility] Comment on above: Result Comment: Crit ical Result(s) Called at: 12:32:46 01/05/2023 by: Falguni. Frank Lockhart RN (). Results read back by same. Please Note: New Test Units and Gender Specific Reference Ranges. For more information see Policy Stat [place] High Sensitivity Troponin (TNIH) and attachments. Performed By: #### L 501.4020 ####[facility] [facility] [place] [id number] [place], [address] L501.5425on 01-05-2023 TROPONIN-I HS 464 pg/mL Invalid Interpretation Code 3.0-54.0 [facility] [place] Comment on above: Order Comment: 1Y Result Comment: Crit ical Result(s) Called at: 10:19:40 01/05/2023 by:Kori Joiner. Results read back by same. Please Note: New Test Units and Gender Specific Reference Ranges. For more information see Policy Stat Procedure [place] High Sensitivity Troponin (TNIH) and attachments. Performed By: #### L 501.5443, L500.4050, L100.0100, L503.6671 ####[facility] [place] [id number] [place], [address] Laboratory - Chemistry and C hemistry - challengeOrdered By: Harjit Vee on 01-05-2023 ALP [Catalytic activity/Vol] 187 U/L 45-117 [facility] [place] ALT [Catalytic activity/Vol] 41 U/L 13-56 [facility] [place] CO2 [Moles/Vol] 24.0 mmol/L 21.0-32.0 [facility] [place] Globulin (S) [Mass/Vol] 4.5 g/dL 2.2-4.2 [facility] Natriuretic peptide B (Bld) [Mass/Vol] 276.9 pg/mL 0-100 [facility] [place] Urea nitrogen/Creatinine [Mass ratio] 21.5 mg/mg 10-20 [facility] [place] Laboratory - CoagulationOrde red By: Atul Cardozo on 01-05-2023 aPTT Coag (Bld) [Time] 31.6 s 24.1-36.2 [facility] PT Coag (PPP) [Time] 14.3 s 11.7-14.9 [facility] Laboratory - Hematology and Cell countsOrdered By: Harjit Vee on 01-05-2023 Erythrocyte distribution width (RBC) [Entitic vol] 41.9 fL 35.1-43.9 [facility] [place] Erythrocyte distribution width (RBC) [Ratio] 12.6 % 11.6-14.6 [facility] [place] Immature granulocytes/100 WBC (Bld) 0.500 % 0.0-0.9 [facility] [place] Comment on above: IG% - Immature Granu locytes (promyelocytes, myelocytes and metamyelocytes) > 1% indicates that a LEFT SHIFT is Present. MCH (RBC) [Entitic mass] 27.8 pg 27.0-32.0 [facility] [place] Nucleated RBC/100 WBC (Bld) [Ratio] 0 % 0-5 [facility] [place] Legionella Antigen Urineon 1 03-07-2022 LEGU Normal [facility] [place] Comment on above: Performed By: #### M 300.4500, M300.4600 ####[facility] [place] [id number] [place], [place], [id number] MCHC Auto (RBC) [Mass/Vol]Or dered By: Harjit Vee on 01-05-2023 MCHC (RBC) [Mass/Vol] 31.0 g/dL 32-36 [facility] No Panel InformationOrdered By: Atul Cardozo on 01-05-2023 Total Iron Binding Capacity 256 ug/dL 250-450 [facility] [place] Troponin I High Sensitivity 443 pg/mL 3.0-54.0 [facility] [place] Comment on above: Critical Result(s) C alled at: 19:10:25 01/05/2023 by: Viviane LOMBARDO. Results read back by same. Please Note: New Test Units and Gender Specific Reference Ranges. For more information see Policy Stat Procedure [place] High Sensitivity Troponin (TNIH) and attachments. No Panel InformationOrdered By: Harjit Vee on 01-05-2023 Troponin I High Sensitivity 491 pg/mL 3.0-54.0 [facility] [place] Comment on above: Critical Result(s) C alled at: 12:32:46 01/05/2023 by: Azael Velez. Frank Lockhart RN (). Results read back by same. Please Note: New Test Units and Gender Specific Reference Ranges. For more information see Policy Stat Procedure [place] High Sensitivity Troponin (TNIH) and attachments. Estimated Creatinine Clearance Calc 37.85 ml/min [facility] [place] Estimated GFR (MDRD) Amer 48 mL/min >60 [facility] [place] Comment on above: GFR Calc Estimated GFR (MDRD) Non-Af Amer 40 mL/min >60 [facility] [place] Comment on above: Non- GFR Calc Partial Thromboplast Timeon 01-05-2023 aPTT Coag (Bld) [Time] 39.7 s High 24.1-36.2 [facility] Comment on above: Performed By: #### L 300.4310 ####[facility] [place] [id number] [place], [address] aPTT Coag (Bld) [Time] 31.6 s Normal 24.1-36.2 [facility] Comment on above: Performed By: #### L 300.4310, L300.3900 ####[facility] [place] [id number] [place], [address] Platelets bldOrdered By: Severiano Vee on 01-05-2023 Platelets (Bld) [#/Vol] 272 10*3/uL 150-450 [facility] [place] Prothrombin Time w/INRon INR Coag (PPP) [Relative time] 1.1 {INR} Normal [facility] [place] Comment on above: Performed By: #### L 300.4310, L300.3900 ####[facility] [place] [id number] [place], [address] PT Coag (PPP) [Time] 14.3 s Normal 11.7-14.9 [facility] Comment on above: Performed By: #### L 300.4310, L300.3900 ####[facility] [place] [id number] [place], [address] RESPIRATORY PANEL MOLECULARo n 01-05-2023 RP PANEL Normal [facility] [place] Comment on above: Performed By: #### M 100.638 ####[facility] [place] [id number], [address] Serum or plasma albumin cortez urement (mass/volume)Ordered By: Harjit Vee on 01-05-2023 Albumin [Mass/Vol] 2.7 g/dL 3.2-5.0 [facility] Serum or plasma albumin/glob ulin mass ratioOrdered By: Harjit Vee on 01-05-2023 Albumin/Globulin [Mass ratio] 0.6 {ratio} 0.9-2.4 [facility] [place] Serum or plasma calcium cortez urement (mass/volume)Ordered By: Harjit Vee on 01-05-2023 Calcium [Mass/Vol] 9.0 mg/dL 8.5-10.1 [facility] Serum or plasma creatinine m easurement (mass/volume)Ordered By: Harjit Vee on 01-05-2023 Creatinine [Mass/Vol] 1.44 mg/dL 0.55-1.02 [facility] Comment on above: The validity of the calculated GFR & GFRAA in patients over 70 years has not been determined. Clinical correlation is essential. Serum or plasma ferritin kiran surement (mass/volume)Ordered By: Atul Cardozo on 01-05-2023 Ferritin [Mass/Vol] 285 ng/mL 8-252 [facility] Serum or plasma iron saturat ion measurement (mass fraction)Ordered By: Atul Cardozo on 01-05-2023 Iron saturation [Mass fraction] 3.5 % 15.0-55.0 [facility] [place] Serum or plasma urea nitroge n measurement (mass/volume)Ordered By: Harjit Vee on 01-05-2023 Urea nitrogen [Mass/Vol] 31 mg/dL 7-18 [facility] [place] Strep pneumoniae Antig(UR,CS F)on 01-05-2023 STPAG Normal [facility] [place] Comment on above: Performed By: #### M 300.4500, M300.4600 ####[facility] [place] [id number] [place], [place], [id number] Thin prep Papanicolaou smear with manual screeningOrdered By: Harjit Vee on 01-05-2023 Thin prep Papanicolaou smear with manual screening 31 U/L 15-37 [facility] [place] Thin prep Papanicolaou smear with manual screening 8 5-15 [facility] [place] Vitamin B12on 01-05-2023 Cobalamin (Vitamin B12) [Mass/Vol] 306 pg/mL Normal 211-911 [facility] [place] Comment on above: Performed By: #### L 503.6030, L503.0105, L503.6550, L506.0250 ####[facility] [place] [id number] [place], [place], [id number] Whole blood hemoglobin A1c/t otal hemoglobin ratio (mass fraction)Ordered By: Atul Cardozo on 01-05-2023 HbA1c (Bld) [Mass fraction] 10.4 % 3.8-5.6 [facility] [place] Comment on above: Normal < 5.7 % Predi abetic 5.7 - 6.4 % Diabetic >or= 6.5 % Please note range changes. Absolute lymphocyte countOrd ered By: Issac Jose on 09-27-2022 Lymphocytes Auto (Unsp spec) [#/Vol] 2.24 10*3/uL 0.83-4.51 [facility] [place] Basophil percentageOrdered B y: Issac Jose on 09-27-2022 Basophils/100 WBC (Bld) 0.5 % 0-1 [facility] Bilirubin [Mass/Vol] 0.60 mg/dL 0.20-1.00 [facility] Comment on above: For patients on eltr ombopag therapy, use of Dimension [place] TBIL is not recommended. Chloride [Moles/Vol] 98 mmol/L 98-107 [facility] Eosinophils/100 WBC (Bld) 0.9 % 0-5 [facility] [place] Glucose [Mass/Vol] 475 mg/dL 74-106 [facility] Comment on above: Glucose result great er than or equal to 200 mg/dLsuggests DIABETES MELLITUS per A.D.A. criteria. Neutrophils (Bld) [#/Vol] 10.0 10*3/uL 2.0-7.7 [facility] [place] Neutrophils/100 WBC (Bld) 75.1 % 47-70 [facility] [place] Potassium [Moles/Vol] 4.2 mmol/L 3.5-5.1 [facility] Protein [Mass/Vol] 6.6 g/dL 6.4-8.2 [facility] Sodium [Moles/Vol] 131 mmol/L 136-145 [facility] WBC (Bld) [#/Vol] 13.3 10*3/uL 4.4-11.0 [facility] Blood erythrocytes count (nu mber/volume)Ordered By: Issac Jose on 09-27-2022 RBC (Bld) [#/Vol] 4.01 10*6/uL 4.2-5.4 [facility] Blood hemoglobin measurement (mass/volume)Ordered By: Issac Jose on 09-27-2022 Hemoglobin (Bld) [Mass/Vol] 11.4 g/dL 12.0-15.0 [facility] [place] Blood lymphocytes/100 leukoc ytesOrdered By: Issac Jose on 09-27-2022 Lymphocytes/100 WBC (Bld) 16.8 % 19-41 [facility] [place] Blood monocytes/100 leukocyt esOrdered By: Issac Jose on 09-27-2022 Monocytes/100 WBC (Bld) 6.3 % 0-10 [facility] Blood platelet mean volumeOr dered By: Issac Jose on 09-27-2022 Platelet mean volume (Bld) [Entitic vol] 9.6 fL 6.2-12.0 [facility] [place] Determination of erythrocyte mean corpuscular volume (MCV)Ordered By: Issac Jose on 09-27-2022 MCV (RBC) [Entitic vol] 88.8 fL 81-99 [facility] Hematocrit Auto (Bld) [Volum e fraction]Ordered By: Issac Jose on 09-27-2022 Hematocrit (Bld) [Volume fraction] 35.6 % 37-47 [facility] [place] Laboratory - Chemistry and C hemistry - challengeOrdered By: Issac Jose on 09-27-2022 ALP [Catalytic activity/Vol] 128 U/L 45-117 [facility] [place] ALT [Catalytic activity/Vol] 22 U/L 13-56 [facility] [place] CO2 [Moles/Vol] 27.0 mmol/L 21.0-32.0 [facility] [place] Globulin (S) [Mass/Vol] 3.7 g/dL 2.2-4.2 [facility] Urea nitrogen/Creatinine [Mass ratio] 13.8 mg/mg 10-20 [facility] [place] Laboratory - Hematology and Cell countsOrdered By: Issac Jose on 09-27-2022 Erythrocyte distribution width (RBC) [Entitic vol] 41.9 fL 35.1-43.9 [facility] [place] Erythrocyte distribution width (RBC) [Ratio] 12.8 % 11.6-14.6 [facility] [place] Immature granulocytes/100 WBC (Bld) 0.400 % 0.0-0.9 [facility] [place] Comment on above: IG% - Immature Granu locytes (promyelocytes, myelocytes and metamyelocytes) > 1% indicates that a LEFT SHIFT is Present. MCH (RBC) [Entitic mass] 28.4 pg 27.0-32.0 [facility] [place] Nucleated RBC/100 WBC (Bld) [Ratio] 0 % 0-5 [facility] [place] MCHC Auto (RBC) [Mass/Vol]Or dered By: Issac Jose on 09-27-2022 MCHC (RBC) [Mass/Vol] 32.0 g/dL 32-36 [facility] No Panel InformationOrdered By: Issac Jose on 09-27-2022 Estimated Creatinine Clearance Calc 34.07 ml/min [facility] [place] Estimated GFR (MDRD) Amer 42 mL/min >60 [facility] [place] Comment on above: GFR Calc Estimated GFR (MDRD) Non-Af Amer 35 mL/min >60 [facility] [place] Comment on above: Non- GFR Calc Troponin I High Sensitivity 26 pg/mL 3.0-54.0 [facility] [place] Comment on above: Critical Result(s) C alled at: 16:24:10 09/27/2022 by: Elba Callaway to Jeannie Penny. Results read back by same. Please Note: New Test Units and Gender Specific Reference Ranges. For more information see Policy Stat Procedure [place] High Sensitivity Troponin (TNIH) and attachments. Platelets bldOrdered By: Jennifer Jose on 09-27-2022 Platelets (Bld) [#/Vol] 394 10*3/uL 150-450 [facility] [place] Serum or plasma albumin cortez urement (mass/volume)Ordered By: Issac Jose on 09-27-2022 Albumin [Mass/Vol] 2.9 g/dL 3.2-5.0 [facility] Serum or plasma albumin/glob ulin mass ratioOrdered By: Issac Jose on 09-27-2022 Albumin/Globulin [Mass ratio] 0.8 {ratio} 0.9-2.4 [facility] [place] Serum or plasma calcium cortez urement (mass/volume)Ordered By: Issac Jose on 09-27-2022 Calcium [Mass/Vol] 8.4 mg/dL 8.5-10.1 [facility] Serum or plasma creatinine m easurement (mass/volume)Ordered By: Issac Jose on 09-27-2022 Creatinine [Mass/Vol] 1.60 mg/dL 0.55-1.02 [facility] Comment on above: The validity of the calculated GFR & GFRAA in patients over 70 years has not been determined. Clinical correlation is essential. Serum or plasma urea nitroge n measurement (mass/volume)Ordered By: Issac Jose on 09-27-2022 Urea nitrogen [Mass/Vol] 22 mg/dL 7-18 [facility] [place] Thin prep Papanicolaou smear with manual screeningOrdered By: Issac Jose on 09-27-2022 Thin prep Papanicolaou smear with manual screening 15 U/L 15-37 [facility] [place] Thin prep Papanicolaou smear with manual screening 6 5-15 [facility] [place] Basophil percentageOrdered B y: Pato Mccall on 06-03-2022 Bilirubin [Mass/Vol] 0.50 mg/dL 0.20-1.00 [facility] Comment on above: For patients on eltr ombopag therapy, use of Dimension [place] TBIL is not recommended. Chloride [Moles/Vol] 102 mmol/L 98-107 [facility] Cholesterol [Mass/Vol] 127 mg/dL <200 [facility] Comment on above: <200 mg/dL Desirable 200-240 mg/dL Borderline >240 mg/dL High Risk Glucose [Mass/Vol] 173 mg/dL 74-106 [facility] Comment on above: Fasting Glucose resu lt greater than or equal to 126 mg/dL suggests DIABETES MELLITUS per A.D.A. criteria. Potassium [Moles/Vol] 4.5 mmol/L 3.5-5.1 [facility] Protein [Mass/Vol] 7.0 g/dL 6.4-8.2 [facility] Sodium [Moles/Vol] 132 mmol/L 136-145 [facility] Triglyceride [Mass/Vol] 81 mg/dL <199 [facility] Comment on above: The drugs N-Acetylcy steine and Metamizole may falsely depress this assay.Serum Triglycerides Reference Interval Normal <150 mg/dL Borderline high 150 - 199 mg/dL High 200 - 499 mg/dL Very High > or = 500 mg/dL Laboratory - Chemistry and C hemistry - challengeOrdered By: Pato Mccall on 06-03-2022 ALP [Catalytic activity/Vol] 130 U/L 45-117 [facility] [place] ALT [Catalytic activity/Vol] 25 U/L 13-56 [facility] [place] CO2 [Moles/Vol] 27.0 mmol/L 21.0-32.0 [facility] [place] Globulin (S) [Mass/Vol] 4.1 g/dL 2.2-4.2 [facility] Urea nitrogen/Creatinine [Mass ratio] 19.4 mg/mg 10-20 [facility] [place] No Panel InformationOrdered By: Pato Mccall on 06-03-2022 Estimated GFR (MDRD) Amer 80 mL/min >60 [facility] [place] Comment on above: GFR Calc Estimated GFR (MDRD) Non-Af Amer 66 mL/min >60 [facility] [place] Comment on above: Non- GFR Calc Vitamin D 25-Hydroxy 23.1 ng/mL [facility] Comment on above: Vitamin D 25(OH) Sta tus Range Deficiency <20 ng/mL (50nmol/L) Insufficiency 20 - 30 ng/mL (50 - 75 nmol/L) Sufficiency 30 - 100 ng/mL (75 - 250 nmol/L) Toxicity >100 ng/mL (>250 nmol/L) Serum or plasma albumin cortez urement (mass/volume)Ordered By: Pato Mccall on 06-03-2022 Albumin [Mass/Vol] 2.9 g/dL 3.2-5.0 [facility] Serum or plasma albumin/glob ulin mass ratioOrdered By: Pato Mccall on 06-03-2022 Albumin/Globulin [Mass ratio] 0.7 {ratio} 0.9-2.4 [facility] [place] Serum or plasma calcium cortez urement (mass/volume)Ordered By: Pato Mccall on 06-03-2022 Calcium [Mass/Vol] 8.7 mg/dL 8.5-10.1 [facility] Serum or plasma cholesterol in HDL measurement (mass/volume)Ordered By: Pato Mccall on 06-03-2022 Cholesterol in HDL [Mass/Vol] 52 mg/dL >40 [facility] [place] Comment on above: The drugs N-Acetylcy steine and Metamizole may falsely depress this assay. Reference Range HDL <40 mg/dL Low HDL Cholesterol HDL >or= 60 mg/dL High HDL Cholesterol Serum or plasma cholesterol in VLDL measurement (mass/volume)Ordered By: Pato Mccall on 06-03-2022 Cholesterol in VLDL [Mass/Vol] 16 mg/dL 5-40 [facility] [place] Serum or plasma creatinine m easurement (mass/volume)Ordered By: Pato Mccall on 06-03-2022 Creatinine [Mass/Vol] 0.93 mg/dL 0.55-1.02 [facility] Comment on above: The validity of the calculated GFR & GFRAA in patients over 70 years has not been determined. Clinical correlation is essential. Serum or plasma low density lipoprotein (LDL) cholesterol measurement (mass/volume)Ordered By: Pato Mccall on 06-03-2022 Cholesterol in LDL [Mass/Vol] 59 mg/dL 0-130 [facility] [place] Serum or plasma urea nitroge n measurement (mass/volume)Ordered By: Pato Mccall on 06-03-2022 Urea nitrogen [Mass/Vol] 18 mg/dL 7-18 [facility] [place] Thin prep Papanicolaou smear with manual screeningOrdered By: Pato Mccall on 06-03-2022 Thin prep Papanicolaou smear with manual screening 18 U/L 15-37 [facility] [place] Thin prep Papanicolaou smear with manual screening 3 5-15 [facility] [place] Whole blood hemoglobin A1c/t otal hemoglobin ratio (mass fraction)Ordered By: Pato Mccall on 06-03-2022 HbA1c (Bld) [Mass fraction] 11.8 % 3.8-5.6 [facility] [place] Comment on above: Normal < 5.7 % Predi abetic 5.7 - 6.4 % Diabetic >or= 6.5 % Please note range changes. LABORATORYOrdered By: Sangeetha subramanian on 11-17-2021 Glucose [Mass/Vol] 123 mg/dL High 70 - 110 mg/dL [facility] Work Phone: Basophil percentageon 2021 Bilirubin [Mass/Vol] 0.30 mg/dL 0.20-1.00 [facility] Work Phone: Comment on above: For patients on eltr ombopag therapy, use of [place] TBIL is not recommended. Chloride [Moles/Vol] 105 mmol/L 98-107 [facility] Work Phone: [phone] Cholesterol [Mass/Vol] 176 mg/dL <200 [facility] Work Phone: [phone] Comment on above: <200 mg/dL Desirable 200-240 mg/dL Borderline >240 mg/dL High Risk Glucose [Mass/Vol] 203 mg/dL 74-106 [facility] Work Phone: [phone] Comment on above: Glucose result great er than or equal to 200 mg/dLsuggests DIABETES MELLITUS per A.D.A. criteria. Potassium [Moles/Vol] 5.4 mmol/L 3.5-5.1 [facility] Work Phone: [phone] Protein [Mass/Vol] 7.3 g/dL 6.4-8.2 [facility] Work Phone: [phone] Sodium [Moles/Vol] 139 mmol/L 136-145 [facility] Work Phone: [phone] Triglyceride [Mass/Vol] 85 mg/dL <199 [facility] Work Phone: [phone] Comment on above: The drugs N-Acetylcy steine and Metamizole may falsely depress this assay.Serum Triglycerides Reference Interval Normal <150 mg/dL Borderline high 150 - 199 mg/dL High 200 - 499 mg/dL Very High > or = 500 mg/dL Laboratory - Chemistry and C hemistry - challengeon 11-01-2021 ALP [Catalytic activity/Vol] 103 U/L 45-117 [facility] [place] Work Phone: [phone] ALT [Catalytic activity/Vol] 17 U/L 13-56 [facility] [place] Work Phone: [phone] CO2 [Moles/Vol] 29.0 mmol/L 21.0-32.0 [facility] [place] Work Phone: [phone] Globulin (S) [Mass/Vol] 4.3 g/dL 2.2-4.2 [facility] Work Phone: [phone] Urea nitrogen/Creatinine [Mass ratio] 24.4 mg/mg 10-20 [facility] [place] Work Phone: No Panel Informationon 11-01 Estimated GFR (MDRD) Amer 87 mL/min >60 [facility] [place] Work Phone: Comment on above: GFR Calc Estimated GFR (MDRD) Non-Af Amer 72 mL/min >60 [facility] [place] Work Phone: Comment on above: Non- GFR Calc Serum or plasma albumin cortez urement (mass/volume)on 11-01-2021 Albumin [Mass/Vol] 3.0 g/dL 3.2-5.0 [facility] Work Phone: Serum or plasma albumin/glob ulin mass ratioon 11-01-2021 Albumin/Globulin [Mass ratio] 0.7 {ratio} 0.9-2.4 [facility] [place] Work Phone: Serum or plasma calcium cortez urement (mass/volume)on 11-01-2021 Calcium [Mass/Vol] 8.7 mg/dL 8.5-10.1 [facility] Work Phone: Serum or plasma cholesterol in HDL measurement (mass/volume)on 11-01-2021 Cholesterol in HDL [Mass/Vol] 45 mg/dL >40 [facility] [place] Work Phone: Comment on above: The drugs N-Acetylcy steine and Metamizole may falsely depress this assay. Reference Range HDL <40 mg/dL Low HDL Cholesterol HDL >or= 60 mg/dL High HDL Cholesterol Serum or plasma cholesterol in VLDL measurement (mass/volume)on 11-01-2021 Cholesterol in VLDL [Mass/Vol] 17 mg/dL 5-40 [facility] [place] Work Phone: Serum or plasma creatinine m easurement (mass/volume)on 11-01-2021 Creatinine [Mass/Vol] 0.86 mg/dL 0.55-1.02 [facility] Work Phone: Comment on above: The validity of the calculated GFR & GFRAA in patients over 70 years has not been determined. Clinical correlation is essential. Serum or plasma low density lipoprotein (LDL) cholesterol measurement (mass/volume)on 11-01-2021 Cholesterol in LDL [Mass/Vol] 114 mg/dL 0-130 [facility] [place] Work Phone: Serum or plasma urea nitroge n measurement (mass/volume)on 11-01-2021 Urea nitrogen [Mass/Vol] 21 mg/dL 7-18 [facility] [place] Work Phone: Thin prep Papanicolaou smear with manual screeningon 11-01-2021 Thin prep Papanicolaou smear with manual screening 10 U/L 15-37 [facility] [facility] [place] Work Phone: Thin prep Papanicolaou smear with manual screening 5 5-15 [facility] [place] Work Phone: Whole blood hemoglobin A1c/t otal hemoglobin ratio (mass fraction)on 11-01-2021 HbA1c (Bld) [Mass fraction] 10.0 % 3.8-5.6 [facility] [place] Work Phone: Comment on above: Normal < 5.7 % Predi abetic 5.7 - 6.4 % Diabetic >or= 6.5 % Please note range changes. LABORATORYOrdered By: Sangeetha subramanian on 10-15-2021 Glucose [Mass/Vol] 171 mg/dL High 70 - 110 mg/dL [facility] Work Phone: LABORATORYOrdered By: Sangeetha subramanian on 08-21-2021 Glucose [Mass/Vol] 301 mg/dL High 70 - 110 mg/dL [facility] Work Phone: Vital Signs Date Time Vital Sign Value Performing Clinician Facility 03-31-2023 10:25-050 Body height 165.1 cm M1 [employer]-C Pato Mccall M1 [employer] Work Phone: [facility] [place] 03-31-2023 10:25-050 Body mass index (BMI) [Ratio] 58.2 kg/m2 M1 [employer]C Pato Mccall M1 [employer] Work Phone: [facility] [place] 03-31-2023 10:25-050 Body weight 158.75 kg M1 [employer] CREW[employer]-Caleb Mccall M1 [employer] Work Phone: [facility] [place] 03-31-2023 10:25-0500 Diastolic blood pressure 69 mm[Hg] M1 [employer]-C Pato Mccall M1 [employer] Work Phone: [facility] [place] 03-31-2023 10:25-0500 Heart rate 77 /min M1 [employer]C Pato Mccall M1 [employer] Work Phone: [facility] [place] 03-31-2023 10:25-0500 Respiratory rate 20 /min M1 [employer]C Pato Mccall M1 [employer] Work Phone: [facility] [place] 03-31-2023 10:25-0500 Systolic blood pressure 150 mm[Hg] M1 [employer]-C Pato Mccall M1 [employer] Work Phone: [facility] [place] 03-03-2023 21:44-0500 Diastolic blood pressure 40 mm[Hg] M1 [employer]-C Pato Mccall M1 [employer] Work Phone: [facility] [place] 03-03-2023 21:44-0500 Heart rate 82 /min M1 [employer]C Pato Mccall M1 [employer] Work Phone: [facility] [place] 03-03-2023 21:44-0500 Respiratory rate 16 /min M1 [employer]-C Pato Mccall M1 [employer] Work Phone: [facility] [place] 03-03-2023 21:44-0500 SaO2% (BldA) [Mass fraction] 97 % M1 [employer]C Pato Mccall M1 [employer] Work Phone: [facility] [place] 03-03-2023 21:44-0500 Systolic blood pressure 164 mm[Hg] M1 [employer]-C Pato Mccall M1 [employer] Work Phone: [facility] [place] 03-03-2023 19:50-0500 Body temperature 97 [degF] M1 [employer]-C Pato Mccall M1 [employer] Work Phone: [facility] [place] 03-03-2023 18:57-0500 Body mass index (BMI) [Ratio] 56.5 kg/m2 M1 [employer]-C Pato Mccall M1 [employer] Work Phone: [facility] [place] 03-03-2023 18:57-0500 Body weight 153.9 kg M1 [employer]-C Pato Mccall M1 [employer] Work Phone: [facility] [place] 03-03-2023 16:21-0500 Body height 165.1 cm M1 [employer]-C Pato Reynosopkins M1 [employer] Work Phone: [facility] [place] 03-02-2023 10:29-0500 Body mass index (BMI) [Ratio] 56 kg/m2 M1 [employer]-C Pato Stefany M1 [employer] Work Phone: [facility] [place] 03-02-2023 10:29-0500 Body temperature 98 [degF] M1 [employer]-C Pato Arecibo M1 [employer] Work Phone: [facility] [place] 03-02-2023 10:29-0500 Body weight 152.86 kg M1 [employer]-C Pato Arecibo M1 [employer] Work Phone: [facility] [place] 03-02-2023 10:29-0500 Diastolic blood pressure 76 mm[Hg] M1 [employer]-C Pato Mccall M1 [employer] Work Phone: [facility] [place] 03-02-2023 10:29-0500 Heart rate 93 /min M1 [employer]-C Pato Reynosopkins M1 [employer] Work Phone: [facility] [place] 03-02-2023 10:29-0500 Respiratory rate 18 /min M1 [employer]-C Pato Reynosopkins M1 [employer] Work Phone: [facility] [place] 03-02-2023 10:29-0500 SaO2% (BldA) [Mass fraction] 100 % M1 [employer]-C Pato Stefany M1 [employer] Work Phone: [facility] [place] 03-02-2023 10:29-0500 Systolic blood pressure 155 mm[Hg] M1 [employer]-C Pato Arecibo M1 [employer] Work Phone: [facility] [place] 02-11-2023 13:22-0500 Body mass index (BMI) [Ratio] 56.7 kg/m2 M1 [employer]-C Pato Arecibo M1 [employer] Work Phone: [facility] [place] 02-11-2023 13:22-0500 Body weight 154.67 kg M1 [employer]-C Pato Mccall M1 [employer] Work Phone: [facility] [place] 02-11-2023 13:22-0500 Diastolic blood pressure 91 mm[Hg] M1 [employer]-C Pato Arecibo M1 [employer] Work Phone: [facility] [place] 02-11-2023 13:22-0500 Heart rate 75 /min M1 [employer]-C Pato Arecibo M1 [employer] Work Phone: [facility] [place] 02-11-2023 13:22-0500 Respiratory rate 22 /min M1 [employer]-C Pato Stefany M1 [employer] Work Phone: [facility] [place] 02-11-2023 13:22-0500 SaO2% (BldA) [Mass fraction] 100 % M1 [employer]-C Pato Stefany M1 [employer] Work Phone: [facility] [place] 02-11-2023 13:22-0500 Systolic blood pressure 179 mm[Hg] M1 [employer]-C Pato Reynosopkins M1 [employer] Work Phone: [facility] [place] 01-30-2023 13:53-0500 Body temperature 98 [degF] M1 [employer]-C Pato Arecibo M1 [employer] Work Phone: [facility] [place] 01-30-2023 13:53-0500 Diastolic blood pressure 79 mm[Hg] M1 [employer]-C Pato Stefany M1 [employer] Work Phone: [facility] [place] 01-30-2023 13:53-0500 Heart rate 90 /min M1 [employer]-C Pato Stefany M1 [employer] Work Phone: [facility] [place] 01-30-2023 13:53-0500 Respiratory rate 18 /min M1 [employer]-C Pato Arecibo M1 [employer] Work Phone: [facility] [place] 01-30-2023 13:53-0500 Systolic blood pressure 154 mm[Hg] M1 [employer]-C Pato Arecibo M1 [employer] Work Phone: [facility] [place] 01-30-2023 13:00-0500 SaO2% (BldA) [Mass fraction] 97 % M1 [employer]-C Pato Stefany M1 [employer] Work Phone: [facility] [place] 01-30-2023 12:01-0500 Body height 165.1 cm M1 [employer]-C Pato Mccall M1 [employer] Work Phone: [facility] [place] 01-30-2023 12:01-0500 Body mass index (BMI) [Ratio] 55 kg/m2 M1 [employer]-C Pato Arecibo M1 [employer] Work Phone: [facility] [place] 01-30-2023 12:01-0500 Body weight 149.86 kg M1 [employer]-C Pato Mccall M1 [employer] Work Phone: [facility] [place] 01-24-2023 01:15-0500 Diastolic blood pressure 47 mm[Hg] M1 [employer]C Pato Mccall M1 [employer] Work Phone: [facility] [place] 01-24-2023 01:15-0500 Heart rate 82 /min M1 [employer]-C Pato Mccall M1 [employer] Work Phone: [facility] [place] 01-24-2023 01:15-0500 Respiratory rate 23 /min M1 [employer]-C Pato Mccall M1 [employer] Work Phone: [facility] [place] 01-24-2023 01:15-0500 SaO2% (BldA) [Mass fraction] 95 % M1 [employer]-C Pato Mccall M1 [employer] Work Phone: [facility] [place] 01-24-2023 01:15-0500 Systolic blood pressure 136 mm[Hg] M1 [employer]-C Pato Mccall M1 [employer] Work Phone: [facility] [place] 01-23-2023 22:37-0500 Body temperature 97.3 [degF] M1 [employer]-C Pato Mccall M1 [employer] Work Phone: [facility] [place] 01-23-2023 22:21-0500 Body height 165.1 cm M1 [employer]C Pato Mccall M1 [employer] Work Phone: [facility] [place] 01-23-2023 22:21-0500 Body mass index (BMI) [Ratio] 56.5 kg/m2 M1 [employer]C Pato Mccall M1 [employer] Work Phone: [facility] [place] 01-23-2023 22:21-0500 Body weight 154.22 kg M1 [employer]-C Pato Mccall M1 [employer] Work Phone: [facility] [place] 01-10-2023 14:22-0500 Body temperature 97.6 [degF] M1 [employer]C Pato Reynosopkins M1 [employer] Work Phone: [facility] [place] 01-10-2023 14:22-0500 Diastolic blood pressure 60 mm[Hg] M1 [employer]C Pato Mccall M1 [employer] Work Phone: [facility] [place] 01-10-2023 14:22-0500 Heart rate 65 /min M1 [employer]-C Pato Reynosopkins M1 [employer] Work Phone: [facility] [place] 01-10-2023 14:22-0500 Respiratory rate 18 /min M1 [employer]-C Pato Mccall M1 [employer] Work Phone: [facility] [place] 01-10-2023 14:22-0500 SaO2% (BldA) [Mass fraction] 98 % M1 [employer]-C Pato Mccall M1 [employer] Work Phone: [facility] [place] 01-10-2023 14:22-0500 Systolic blood pressure 146 mm[Hg] M1 [employer]-C Pato Reynosopkins M1 [employer] Work Phone: [facility] [place] 01-10-2023 01:41-0500 Inhaled oxygen concentration 21 % M1 [employer]-C Pato Reynosopkins M1 [employer] Work Phone: [facility] [place] 01-08-2023 16:10-0500 Body height 165.1 cm M1 [employer]-C Pato Stefany M1 [employer] Work Phone: [facility] [place] 01-08-2023 16:10-0500 Body weight 153.5 kg M1 [employer]-C Pato Arecibo M1 [employer] Work Phone: [facility] [place] 01-07-2023 09:00-0500 Inhaled oxygen flow rate 2 L/min M1 [employer]-C Pato Mccall M1 [employer] Work Phone: [facility] [place] 01-05-2023 14:54-0500 Body mass index (BMI) [Ratio] 56.2 kg/m2 M1 [employer] Pato Mccall M1 [employer] Work Phone: [facility] [place] 01-05-2023 13:14-0500 Diastolic blood pressure 68 mm[Hg] [facility] [place] 01-05-2023 13:14-0500 Heart rate 92 /min [facility] 01-05-2023 13:14-0500 Inhaled oxygen flow rate 2 L/min [facility] [place] 01-05-2023 13:14-0500 Respiratory rate 16 /min [facility] 01-05-2023 13:14-0500 SaO2% (BldA) [Mass fraction] 98 % [facility] [place] 01-05-2023 13:14-0500 Systolic blood pressure 143 mm[Hg] [facility] [place] 01-05-2023 10:40-0500 Body temperature 97.3 [degF] [facility] 01-05-2023 09:14-0500 Body height 165.1 cm [facility] 01-05-2023 09:14-0500 Body mass index (BMI) [Ratio] 63.7 kg/m2 [facility] [place] 01-05-2023 09:14-0500 Body weight 173.72 kg [facility] 09-27-2022 17:14-0400 Diastolic blood pressure 85 mm[Hg] [facility] [place] 09-27-2022 17:14-0400 Systolic blood pressure 161 mm[Hg] [facility] [place] 09-27-2022 15:37-0400 Body mass index (BMI) [Ratio] 45.3 kg/m2 [facility] [place] 09-27-2022 15:37-0400 Body weight 123.7 kg [facility] 09-27-2022 15:33-0400 Body height 165.1 cm [facility] 09-27-2022 15:33-0400 Body temperature 98 [degF] [facility] 09-27-2022 15:33-0400 Heart rate 94 /min [facility] 09-27-2022 15:33-0400 Respiratory rate 15 /min [facility] 09-27-2022 15:33-0400 SaO2% (BldA) [Mass fraction] 95 % [facility] [place] Encounters Encounter Date Encounter Type Care Provider Facility Start: 02-07-2024 End: 02-07-2024 ambulatory PATO MCCALL SUPERVISOR RESPIRATORY - INDUSTRIAL ORDER CLERK Facility:[facility] Start: 02-07-2024 End: 02-07-2024 Patient encounter procedure LIZA Radha WYNN DO [facility] Start: 11-24-2023 End: 11-28-2023 ambulatory KEYANNA MICHELLE SUPERVISOR RESPIRATORY-INDUSTRIAL ORDER CLERK Facility:[facility] Start: 11-24-2023 End: 11-28-2023 Outreach Lab KEYANNA BARRETTETLER SUPERVISOR RESPIRATORY-INDUSTRIAL ORDER CLERK [facility] Start: 10-15-2023 End: 10-19-2023 ambulatory PATO MCCALL SUPERVISOR RESPIRATORY - INDUSTRIAL ORDER CLERK Facility:[facility] Start: 10-15-2023 End: 10-19-2023 Outreach Lab PATO MANZOKINS SUPERVISOR RESPIRATORY - INDUSTRIAL ORDER CLERK [facility] Start: 10-05-2023 End: 10-05-2023 ambulatory Pato Mccall M1 [employer] Facility:[facility] [place] Start: 07-15-2023 End: 07-15-2023 ambulatory PATO MCCALL SUPERVISOR RESPIRATORY - INDUSTRIAL ORDER CLERK Facility:[facility] Start: 07-15-2023 End: 07-15-2023 Patient encounter procedure PATO MCCALL SUPERVISOR RESPIRATORY - INDUSTRIAL ORDER CLERK [facility] Start: 07-12-2023 End: 07-16-2023 ambulatory PATO REYNOSOPKINS SUPERVISOR RESPIRATORY - INDUSTRIAL ORDER CLERK Facility:[facility] Start: 06-22-2023 End: 06-22-2023 ambulatory Pato Mccall M1 [employer] CRE[employer]MAN Facility:[facility] Start: 05-21-2023 End: 05-21-2023 ambulatory M1 [employer]-C Pato Mccall M1 [employer] Work Phone: [facility] [place] Work Phone: Start: 05-21-2023 End: 05-21-2023 Patient encounter procedure M1 [employer]-C Pato Mccall M1 [employer] Work Phone: [facility] [place]-Laboratory Work Phone: Start: 05-21-2023 End: 05-21-2023 ambulatory Pato Mccall M1 [employer] CRE[employer] Facility:[facility] [place] Start: 03-31-2023 End: 03-31-2023 Patient encounter procedure M1 [employer]-C Pato Mccall M1 [employer] Work Phone: [facility] Work Phone: Start: 03-31-2023 End: 03-31-2023 ambulatory Pato Mccall M1 [employer] CRE[employer] Facility:[facility] Start: 03-03-2023 End: 03-03-2023 Emergency department patient visit M1 [employer]-C Pato Mccall M1 [employer] Work Phone: [facility] [place]-Emergency Department Work Phone: Start: 03-02-2023 End: 03-02-2023 Patient encounter procedure M1 [employer]-C Pato Mccall M1 [employer] Work Phone: [facility] [place]-Radiology, [facility] Work Phone: Start: 03-02-2023 End: 03-02-2023 Patient encounter procedure M1 [employer]-C Pato Mccall M1 [employer] CRE[employer] Work Phone: [facility] Work Phone: Start: 03-02-2023 End: 03-02-2023 ambulatory Pato Mccall M1 [employer] CREWMAN Facility:[facility] Start: 03-02-2023 End: 03-02-2023 ambulatory Pato Mccall M1 [employer] CRE[employer]MAN Facility:[facility] [place] Start: 02-15-2023 ambulatory Pato Mccall M1 [employer] CREWMAN Facility:[facility] [place] Start: 02-11-2023 End: 02-11-2023 Patient encounter procedure M1 [employer] CRE[employer]-Caleb Mccall M1 [employer] Work Phone: [facility] Work Phone: Start: 02-11-2023 End: 02-11-2023 ambulatory Pato Mccall M1 [employer] CRE[employer] Facility:[facility] Start: 01-30-2023 End: 01-30-2023 Emergency department patient visit M1 [employer]-C Pato Mccall M1 [employer] Work Phone: [facility] [place]-Emergency Department Work Phone: Start: 01-23-2023 End: 01-24-2023 Emergency department patient visit M1 [employer]-C Pato Mccall M1 [employer] Work Phone: [facility] [place]-Emergency Department Work Phone: Start: 01-10-2023 Non-patient / Non-visit M1 [employer] CRE[employer]-C R chas Arecibo M1 [employer] CRE[employer]MAN Work Phone: [facility] Work Phone: Start: 01-09-2023 Non-patient / Non-visit M1 [employer]-C R chas Arecibo M1 [employer] CRE[employer] Work Phone: [facility] Work Phone: Start: 01-08-2023 Non-patient / Non-visit M1 [employer]-C R ichard Stefany M1 [employer] Work Phone: [facility] Work Phone: Start: 01-07-2023 Non-patient / Non-visit M1 [employer]-C R johannard Stefany M1 [employer] Work Phone: [facility] Work Phone: Start: 01-06-2023 Non-patient / Non-visit M1 [employer]-C R ichard Stefany M1 [employer] Work Phone: [facility] Work Phone: Start: 01-06-2023 Non-patient / Non-visit M1 [employer]-C R ichard Stefany M1 [employer] CRE[employer] Work Phone: [facility] Start: 01-05-2023 ambulatory Pato Mccall M1 ARMOR CREWMAN Facility:[facility] Start: 01-05-2023 Non-patient / Non-visit M1 [employer] CRE[employer]-C R chas Manzokins M1 ARMOR CREWMAN Work Phone: [facility] Start: 01-05-2023 ambulatory Atul Iraheta ility:[facility] Start: 01-05-2023 End: 01-10-2023 Evaluation and management of inpatient [facility] [place]-Progressive Care Unit Work Phone: Start: 09-27-2022 End: 09-27-2022 Emergency department patient visit [facility] [place]-Emergency Department Work Phone: Start: 06-03-2022 End: 06-03-2022 ambulatory [facility] [place] Work Phone: Start: 06-03-2022 End: 06-03-2022 Patient encounter procedure [facility] [place]-Laboratory, [place] Start: 12-11-2021 End: 11-17-2023 OTHER THERAPY PATO MCCALL SUPERVISOR RESPIRATORY - INDUSTRIAL ORDER CLERK [facility] Start: 11-01-2021 End: 11-01-2021 ambulatory [facility] [place] Work Phone: Start: 11-01-2021 End: 11-01-2021 Patient encounter procedure [facility] [place]-Laboratory Procedures Date Procedure Procedure Detail Performing Clinician Start: 03-02-2023 Plain chest X-ray M1 [employer] CRE[employer]MAN-Caleb Mccall M1 [employer] CRE[employer] Work Phone: Start: 01-30-2023 Plain chest X-ray M1 [employer] CREWMAN-Caleb Mccall M1 [employer] CRE[employer] Work Phone: Start: 01-24-2023 CT angiography of ch est with contrast M1 [employer] CREWMAN-Caleb Mccall M1 [employer] CRE[employer] Work Phone: Start: 01-23-2023 Plain chest X-ray M1 [employer] CRE[employer]-Caleb Mccall M1 [employer] Work Phone: Start: 01-09-2023 Investigation of tra nsfusion reaction M1 [employer] CRE[employer]-Caleb Mccall M1 [employer] Work Phone: Start: 01-09-2023 Respiratory microbia l culture M1 [employer] CREW[employer]-Caleb Mccall M1 [employer] Work Phone: Start: 01-07-2023 Bacteria identified in Blood by Culture M1 [employer]-Caleb Mccall M1 [employer] Work Phone: Start: 01-07-2023 Urine culture M1 [employer] CRE[employer]-C Domi Mccall M1 [employer] CRE[employer] Work Phone: Start: 01-05-2023 CT angiography of ch est with contrast Start: 01-05-2023 Plain chest X-ray Start: 06-01-2018 Glaucoma screening DOMI MCCALL SUPERVISOR RESPIRATORY - INDUSTRIAL ORDER CLERK Comment on above: Dr. Solomon Start: 06-01-2018 Ophthalmic examinati on and evaluation PATO REYNOSOPKINS SUPERVISOR RESPIRATORY - INDUSTRIAL ORDER CLERK Comment on above: Dr. Solomon-Non proli ferative Retinopathy Start: 08-25-2017 Cardiac catheterization PATO REYNOSOPKINS SUPERVISOR RESPIRATORY - INDUSTRIAL ORDER CLERK Comment on above: [facility]-Dr. Ford Start: 08-25-2017 Cardiovascular stres s testing PATO REYNOSOPKINS SUPERVISOR RESPIRATORY - INDUSTRIAL ORDER CLERK Comment on above: [facility] Start: 08-25-2017 Echocardiography GABBY REYNOSOPKINS SUPERVISOR RESPIRATORY - INDUSTRIAL ORDER CLERK Comment on above: [facility] Start: 02-08-2017 Extraction of cataract PATO REYNOSOPKINS SUPERVISOR RESPIRATORY - INDUSTRIAL ORDER CLERK Comment on above: one 02/24, one 04/25 Start: 02-08-1994 Cholecystectomy PATO MANZOKINS SUPERVISOR RESPIRATORY - INDUSTRIAL ORDER CLERK Adenoid excision PATO REYNOSO ANEL SUPERVISOR RESPIRATORY - INDUSTRIAL ORDER CLERK Appendectomy PATO REYNOSOJUICE S SUPERVISOR RESPIRATORY - INDUSTRIAL ORDER CLERK Comment on above: age 10 Plan of Treatment Date Care Activity Detail Author Start: 03-03-2023 [facility] [place] Start: 01-30-2023 [facility] [place] Start: 01-24-2023 [facility] [place] Start: 01-15-2023 [facility] [place] Start: 01-14-2023 [facility] [place] Start: 01-13-2023 [facility] [place] Start: 01-12-2023 [facility] [place] Start: 01-11-2023 [facility] [place] Start: 01-10-2023 [facility] [place] Start: 01-10-2023 Patient discharge [facility] [place] Start: 01-09-2023 Provision of activity privileges [facility] [place] Start: 01-09-2023 Respiratory microbial culture Respiratory Culture [facility] [place] Start: 01-09-2023 Care planning and problem solving actions [facility] [place] Start: 01-07-2023 Methicillin resistant Staphylococcus aureus screening test [facility] [place] Start: 01-07-2023 End: 01-07-2023 Blood culture [facility] [place] Start: 01-07-2023 [facility] [place] Start: 01-07-2023 Bacteria identified in Blood by Culture Blood Culture [facility] [place] Start: 01-07-2023 [facility] [facility] [place] Work Phone: Start: 01-07-2023 Inhalation therapy procedure [facility] [place] Start: 01-06-2023 Continuous pulse oximetry [facility] Start: 01-06-2023 Notification of physician [facility] Start: 01-06-2023 Patient education [facility] [place] Start: 01-06-2023 Provision of activity privileges [facility] [place] Start: 01-06-2023 Pulse taking [facility] [place] Start: 01-06-[address] patient vital signs [facility] Start: 01-06-2023 Wound care [facility] [place] Start: 01-06-2023 [facility] [place] Start: 01-06-2023 Catheterization of vein [facility] Start: 01-06-2023 Medication not administered [facility] Start: 01-06-2023 Notification of physician [facility] Start: 01-06-2023 [facility] [place] Start: 01-06-2023 Dual pressure spontaneous ventilation support [facility] [place] Start: 01-05-2023 Following clinical pathway protocol [facility] [place] Start: 01-05-2023 Ambulation without limitation [facility] [place] Start: 01-05-2023 Assessment of risk of venous thromboembolism [facility] [place] Start: 01-05-2023 Care regimes management [facility] Start: 01-05-2023 Continuous positive airway pressure ventilation treatment [facility] [place] Start: 01-05-2023 Insertion of catheter into peripheral vein [facility] [place] Start: 01-05-2023 Notification of physician [facility] Start: 01-05-2023 Oxygen therapy [facility] [place] Start: 01-05-2023 Patient referral to dietitian [facility] [place] Start: 01-05-2023 Providing care according to standard [facility] [place] Start: 01-05-2023 Referral to automotive electrical helper [facility] Start: 01-05-2023 Referral to occupational therapist [facility] [place] Start: 01-05-2023 Referral to service [facility] [place] Start: 01-05-2023 [facility] [place] Start: 01-05-2023 Respiratory Panel (PCR) Respiratory Panel (PCR) [facility] [place] Start: 01-05-2023 Verification routine [facility] [place] Start: 01-05-2023 Bacteria identified in Sputum by Culture [facility] [place] Start: 01-05-2023 Legionella pneumophila Ag [Presence] in Urine [facility] [place] Start: 01-05-2023 Streptococcus pneumoniae antigen assay [facility] [place] Start: 01-05-2023 Hospital admission, emergency, from emergency room, medical nature [facility] [place] Start: 01-05-2023 Admission procedure [facility] [place] Start: 01-05-2023 [facility] [place] Start: 01-05-2023 Patient referral to dietitian [facility] [place] Patient Education [facility] Work Phone: Patient referral [facility] Work Phone: Respiratory pathogen s DNA and RNA panel - Respiratory specimen by LADARIUS with probe detection [facility] [place] Immunizations Immunization Date Immunization Notes Care Provider Fa cili 11-14-2023 influenza virus vaccine, unspecified formulation PATO MCCALL SUPERVISOR RESPIRATORY - INDUSTRIAL ORDER CLERK [facility] 10-27-2023 SARS-CoV-2 (COVID-19 ) [id number] PATO MCCALL SUPERVISOR RESPIRATORY - INDUSTRIAL ORDER CLERK [facility] [place] 12-03-2022 influenza virus vaccine, unspecified formulation PATO MCCALL SUPERVISOR RESPIRATORY - INDUSTRIAL ORDER CLERK [facility] [place] 12-18-2021 influenza virus vaccine, unspecified formulation PATO MCCALL SUPERVISOR RESPIRATORY - INDUSTRIAL ORDER CLERK [facility] 08-30-2021 SARS-CoV-2 mRNA (bqggkdbwsdf-sioa-qalne se) vaccine PATO MCCALL SUPERVISOR RESPIRATORY - INDUSTRIAL ORDER CLERK [facility] 12-20-2020 influenza virus vaccine, unspecified formulation PATO MCCALL SUPERVISOR RESPIRATORY - INDUSTRIAL ORDER CLERK [facility] 12-20-2020 SARS-CoV-2 mRNA (tozinameran) vaccine PATO MCCALL SUPERVISOR RESPIRATORY - INDUSTRIAL ORDER CLERK [facility] 05-08-2020 SARS-CoV-2 (COVID-19 ) mRNA-1273 vaccine PATO MCCALL SUPERVISOR RESPIRATORY - INDUSTRIAL ORDER CLERK [facility] 04-10-2020 SARS-CoV-2 (COVID-19 ) mRNA-1273 vaccine PATO MCCALL SUPERVISOR RESPIRATORY - INDUSTRIAL ORDER CLERK [facility] Comment on above: Result Comment: 2020: [id number] 04-18-2019 zoster vaccine, live PATO MCCALL SUPERVISOR RESPIRATORY - INDUSTRIAL ORDER CLERK [facility] Comment on above: Result Comment: [04/08] SHINGRIX 01-11-2019 zoster vaccine recombinant PATO MCCALL SUPERVISOR RESPIRATORY - INDUSTRIAL ORDER CLERK [facility] 12-05-2018 influenza virus vaccine, unspecified formulation PATO MCCALL SUPERVISOR RESPIRATORY - INDUSTRIAL ORDER CLERK [facility] 12-03-2017 influenza virus vaccine, unspecified formulation PATO MCCALL SUPERVISOR RESPIRATORY - INDUSTRIAL ORDER CLERK [facility] 12-03-2017 tetanus toxoid, redu candie diphtheria toxoid, and acellular pertussis vaccine, adsorbed PATO MCCALL SUPERVISOR RESPIRATORY - INDUSTRIAL ORDER CLERK [facility] 11-15-2016 influenza virus vaccine, unspecified formulation PATO MCCALL SUPERVISOR RESPIRATORY - INDUSTRIAL ORDER CLERK [facility] 10-16-2015 influenza virus vaccine, unspecified formulation PATO MCCALL SUPERVISOR RESPIRATORY - INDUSTRIAL ORDER CLERK [facility] 10-16-2015 pneumococcal conjuga te vaccine, 13 valent PATO REYNOSOPKINS SUPERVISOR RESPIRATORY - INDUSTRIAL ORDER CLERK [facility] 12-08-2013 influenza virus vaccine, unspecified formulation PATO MCCALL SUPERVISOR RESPIRATORY - INDUSTRIAL ORDER CLERK [facility] Payers Date Payer Category Payer Unknown [id number] 2024 Unknown [id number] 2023 Unknown [id number] 2023 Private Health Insurance [id number] 2023 Self-pay [id number] 1965 Unknown [id number] 2.840.1.932167.3.579.2. 1965 Unknown [id number]. 1965 Unknown [id number] 2.840.1.714156.3.579.2. 1965 Unknown [id number]. 1965 Unknown [id number] 2.840.1.721758.3.579.2.627 Unknown [facility] [id number] [facility] [id number] Unknown [id number] 2.16.840.1.430837.3.579.2.462 Unknown [id number] 2.16.840.1.980429.3.579.2.462 Unknown [id number] 2.16.840.1.899091.3.579.2.462 Unknown [id number] 2.16.840.1.280918.3.579.2.462 Unknown [id number] 2.16.840.1.983354.3.579.2.462 Unknown [id number] 2.16.840.1.326511.3.579.2.462 Unknown [id number] 2.16.840.1.648088.3.579.2.462 Unknown [id number] 2.16.840.1.531681.3.579.2.462 Unknown [id number] 2.16.840.1.200456.3.579.2.462 Unknown [id number] 2.16.840.1.573494.3.579.2.462 Unknown [id number] 2.16.840.1.483401.3.579.2.462 Unknown [id number] 2.16.840.1.875822.3.579.2.462 Unknown [id number] 2.16.840.1.351086.3.579.2.462 Unknown [id number] 2.16.840.1.479736.3.579.2.462 Unknown [id number] 2.16.840.1.988644.3.579.2.462 Unknown [id number] 2.16.840.1.508099.3.579.2.462 Unknown [id number] 2.16.840.1.666773.3.579.2.462 Unknown [id number] 2.16.840.1.908465.3.579.2.462 Unknown [id number] 2.16.840.1.749227.3.579.2.462 Unknown [id number] 2.16.840.1.674828.3.579.2.462 Social History Date Type Detail Facility Start: 11-17-2018 End: 01-23-2023 Tobacco smoking status NEIS Unknown if ever smoked [facility] [place] Start: 1965 Sex Assigned At Female [facility] Start: 07-12-2023 End: 10-15-2023 Tobacco smoking status Ex-smoker (finding) [facility] Sex Assigned At [facility] Start: 08-23-2013 Sex Female (finding) [facility] Medical Equipment Procedure Code Equipment Code Equipment Origin al Text Equipment Identifier Dates See Instructions , Patient needs strips for her glucometer. She test once daily. Please give enough for 3 months with 1 refill., # 1 EA, 0 Refill(s), Pharmacy: [facility], 168, cm, 08/18/21 8:24:00 EDT, Height, 146.7, kg, 08/18/21 8:24:00 EDT, Dosing Weight Start: 08-18-2021 See Instructions , qs 1 month supply-Pt. to test 2-3 times per day, # 1 EA, 11 Refill(s), Pharmacy: [facility], 168, cm, 08/18/21 8:24:00 EDT, Height, 146.7 Start: 08-18-2021 See Instructions , BD UF 8mm 31 G (short) qs 1 month supply, # 1 EA, 11 Refill(s), Pharmacy: [facility], 166, cm, 03/01/23 13:26:00 EST, Height, 152.5, kg, 03/01/23 13:26:00 EST, Dosing Weight Start: 04-08-2023 See Instructions , Patient needs strips for her glucometer. She test once daily. Please give enough for 3 months with 1 refill., # 1 EA, 0 Refill(s), Pharmacy: [facility] 074, 168, cm, 08/18/21 8:24:00 EDT, Height, 146.7, kg, 08/18/21 8:24:00 EDT, Dosing Weight Start: 08-18-2021 See Instructions , qs 1 month supply-Pt. to test 2-3 times per day, # 1 EA, 11 Refill(s), Pharmacy: [facility] 074, 168, cm, 08/18/21 8:24:00 EDT, Height, 146.7 Start: 08-18-2021 See Instructions , BD UF 8mm 31 G (short) qs 1 month supply, # 1 EA, 11 Refill(s), Pharmacy: [facility], 166, cm, 03/01/23 13:26:00 EST, Height, 152.5, kg, 03/01/23 13:26:00 EST, Dosing Weight Start: 04-08-2023 See Instructions , Patient needs strips for her glucometer. She test once daily. Please give enough for 3 months with 1 refill., # 1 EA, 0 Refill(s), Pharmacy: [facility] 0[facility], 168, cm, 08/18/21 8:24:00 EDT, Height, 146.7, kg, 08/18/21 8:24:00 EDT, Dosing Weight Start: 08-18-2021 See Instructions , qs 1 month supply-Pt. to test 2-3 times per day, # 1 EA, 11 Refill(s), Pharmacy: [facility], 168, cm, 08/18/21 8:24:00 EDT, Height, 146.7 Start: 08-18-2021 See Instructions , BD UF 8mm 31 G (short) qs 1 month supply, # 1 EA, 11 Refill(s), Pharmacy: [facility], 166, cm, 03/01/23 13:26:00 EST, Height, 152.5, kg, 03/01/23 13:26:00 EST, Dosing Weight Start: 04-08-2023 See Instructions , Patient needs strips for her glucometer. She test once daily. Please give enough for 3 months with 1 refill., # 1 EA, 0 Refill(s), Pharmacy: [facility], 168, cm, 08/18/21 8:24:00 EDT, Height, 146.7, kg, 08/18/21 8:24:00 EDT, Dosing Weight Start: 08-18-2021 See Instructions , qs 1 month supply-Pt. to test 2-3 times per day, # 1 EA, 11 Refill(s), Pharmacy: [facility], 168, cm, 08/18/21 8:24:00 EDT, Height, 146.7 Start: 08-18-2021 See Instructions , BD UF 8mm 31 G (short) qs 1 month supply, # 1 EA, 11 Refill(s), Pharmacy: [facility], 166, cm, 03/01/23 13:26:00 EST, Height, 152.5, kg, 03/01/23 13:26:00 EST, Dosing Weight Start: 04-08-2023 See Instructions , Patient needs strips for her glucometer. She test once daily. Please give enough for 3 months with 1 refill., # 1 EA, 0 Refill(s), Pharmacy: [facility], 168, cm, 08/18/21 8:24:00 EDT, Height, 146.7, kg, 08/18/21 8:24:00 EDT, Dosing Weight Start: 08-18-2021 See Instructions , qs 1 month supply-Pt. to test 2-3 times per day, # 1 EA, 11 Refill(s), Pharmacy: [facility], 168, cm, 08/18/21 8:24:00 EDT, Height, 146.7 Start: 08-18-2021 See Instructions , BD UF 8mm 31 G (short) qs 1 month supply, # 1 EA, 11 Refill(s), Pharmacy: [facility], 166, cm, 03/01/23 13:26:00 EST, Height, 152.5, kg, 03/01/23 13:26:00 EST, Dosing Weight Start: 04-08-2023 Goals Date Patient Goal Desired Activity /State Functional Status Date Assessment Result Facility 01-10-2023 Functional status Activity Abili ty With Assist of 1 [facility] [place] Work Phone: 01-09-2023 Functional status Chair [facility] Work Phone: Mental Status Date Assessment Result Facility 03-03-2023 Cognitive function Level Of Cons ciousness Awake;Alert;Appropriate;Follow s Commands [facility] [place] Work Phone: 01-30-2023 Cognitive function Voice/Name [facility] Work Phone: 01-23-2023 Cognitive function Voice/Name [facility] Work Phone: 01-10-2023 Cognitive function Voice/Name [facility] Work Phone: Clinical Notes 09-27-2022 to 11-26-2023 Note Date & Type Note Facility 11-26-2023 Note . MICRO - Microbiology PROCEDURE: Urine Culture [*1] SOURCE: Urine, Clean Catch BODY SITE: COLLECTED DATE/TIME: 11/24/2023 16:40 EDT RECEIVED DATE/TIME: 11/24/2023 19:08 EDT START DATE/TIME: 11/24/2023 19:09 EDT FREE TEXT SOURCE: FINAL REPORTS Final Report [] Verified Date/Time/Personnel: 11/26/2023 07:11 EDT >100,000 cfu/ml Escherichia coli PRELIMINARY REPORTS Preliminary Report [] Verified Date/Time/Personnel: 11/25/2023 10:36 EDT >100,000 cfu/ml Escherichia coli LUCIANO to follow SUSCEPTIBILITY RESULTS Escherichia coli Antibiotic LUCIANO Dilut LUCIANO Inter Ampicillin <=8 Susceptible Ampicillin/ <=4/2 Susceptible Sulbactam Aztreonam <=4 Susceptible Cefazolin <=2 Susceptible Ceftazidime/ <=4 Susceptible Avibactam Ceftolozane/ <=2 Susceptible Tazobactam Ciprofloxacin <=0.25 Susceptible Ertapenem <=0.5 Susceptible Gentamicin <=2 Susceptible ID Panel Not Not Applicable Applicable Imipenem <=1 Susceptible Levofloxacin <=0.5 Susceptible Meropenem <=1 Susceptible Minocycline <=4 Susceptible Nitrofurantoin <=32 Susceptible Trimethoprim/ <=0.5/9.5 Susceptible Sulfa Performing Locations *1: This test was performed at: [address], [address] , [facility] 10-18-2023 Note . MICRO - Microbiology PROCEDURE: Urine Culture [*1] SOURCE: Urine, Clean Catch BODY SITE: COLLECTED DATE/TIME: 10/15/2023 16:40 EDT RECEIVED DATE/TIME: 10/15/2023 20:00 EDT START DATE/TIME: 10/15/2023 20:01 EDT FREE TEXT SOURCE: FINAL REPORTS Final Report [] Verified Date/Time/Personnel: 10/18/2023 09:28 EDT 50,000 - 100,000 cfu/ml Klebsiella variicola PRELIMINARY REPORTS Preliminary Report [] Verified Date/Time/Personnel: 10/16/2023 11:49 EDT 50,000 - 100,000 cfu/ml Klebsiella variicola LUCIANO to follow SUSCEPTIBILITY RESULTS Klebsiella variicola Antibiotic LUCIANO Dilut LUCIANO Inter Ampicillin >16 Resistant Ampicillin/ <=4/2 Susceptible Sulbactam Aztreonam <=4 Susceptible Cefazolin <=2 Susceptible Ciprofloxacin <=0.25 Susceptible Ertapenem <=0.5 Susceptible Gentamicin <=2 Susceptible ID Panel Not Not Applicable Applicable Imipenem <=1 Susceptible Levofloxacin <=0.5 Susceptible Meropenem <=1 Susceptible Minocycline <=4 Susceptible Nitrofurantoin 64 Intermediate Piperacillin/ <=8 Susceptible Tazobactam Trimethoprim/ <=0.5/9.5 Susceptible Sulfa Performing Locations *1: This test was performed at: [address], [address] , [facility] 01-10-2023 Discharge summary Note Date/Time January 10, 2023 2:42pm [facility] Medical Records Department [address] [place], [place] [address] [address] Discharge Summary 01/10/23 1442 MR#: [id number] Acct: [id number] Name: SHADE IBARRA Rep #:[id number] : 1965 57 From: Tasha Kim MD PCP: CHHAYA Malcolm tus:DIS IN [facility] Providers Date of Admission: 01/05/23 Date of Discharge: 01/10/23 Primary Care Physician: CHHAYA Malcolm Consultations 01/05/23 14:53 Consult: Cardiology Routine Consulting Provider: Varun Guzman Reason for Consult: NSTEMI EMERGENT Consult: No MD Notified: Yes Date Notified: 01/05/23 Time Notified: 13:43 Method of Notification: Text Reason For Visit: NSTEMI Diagnosis Discharge Diagnosis (1) NSTEMI, initial episode of care: Status: Acute Code(s): I21.4 - Non-ST elevation (NSTEMI) myocardial infarction (2) Acute hypoxic respiratory failure: Status: Acute Code(s): J96.01 - Acute respiratory failure with hypoxia (3) Community acquired pneumonia: Status: Acute Code(s): J18.9 - Pneumonia, unspecified organism Plan #CAP #JAYDEN on ckd unclear subtype #Poorly controlled type 2 diabetes with hyperglycemia #Mild hyponatremia- resolved #NSTEMI w/ CAD no stenting #Acute hypoxia 2/2 CAP #Normocytic anemia #Morbid obesity: # Anxiety/depression #MUNA #Asthma #Hypertension Medications at Discharge Home Medications albuterol sulfate 90 mcg/actuation aerosol inhaler 2 puff inhalation Q6H PRN shortness of breath 08/04/17 lorazepam 1 mg tablet 1 mg PO DAILY PRN Anxiety 08/04/17 atorvastatin 40 mg tablet 40 mg PO DAILY cholesterol 01/05/23 citalopram 40 mg tablet 40 mg PO DAILY depression 01/05/23 glipizide 5 mg tablet, extended release 24 hr 5 mg PO DAILY blood sugar 01/05/23 pioglitazone 30 mg tablet 30 mg PO DAILY blood sugar 01/05/23 amoxicillin 875 mg-potassium clavulanate 125 mg tablet 1 tab PO BID 5 days #10 tabs 01/10/23 aspirin 81 mg tablet,delayed release 81 mg PO BREAKFAST #30 tabs 01/10/23 cholecalciferol (vitamin D3) 125 mcg (5,000 unit) capsule 125 mcg PO DAILY 30 days #30 caps 01/10/23 cyanocobalamin (vitamin B-12) 500 mcg tablet 1,000 mcg (2 x 500 mcg) PO BREAKFAST 30 days #60 tabs 01/10/23 insulin glargine 100 unit/mL (3 mL) subcutaneous pen (Lantus Solostar U-100 Insulin) 30 unit (0.3 mL) subcut DAILY diabetes #15 mL 01/10/23 losartan 100 mg tablet 100 mg PO DAILY 30 days #30 tabs 01/10/23 metoprolol succinate 50 mg tablet,extended release 24 hr 50 mg PO DAILY 30 days #30 tabs 01/10/23 Hospital Course Procedures Cardiac catheterization Summary of Care Provided Minutes Spent on Discharge: 35 Hospital Course: Patient is a 57-year-old female with history of MUNA on CPAP, depression, hypertension, paroxysmal atrial fibrillation, type 2 diabetes mellitus who presented to [facility] [place] 01/05/2023 with worsening shortness of breath. Patient initially required 4 L nasal cannula in the ED to maintain saturations in the low 90s and there was concern for community-acquired pneumonia and patient started on treatment for this and breathing improved. Did have CTA which showed small bilateral pleural effusions with small lower lobe consolidation or lobular septal thickening throughout the right lung secondary to infection versus pulmonary edema. Patient had several periods where she was tachypneic and anxious but ABG consistent with hyperventilation patient not hypercapnic and had no other etiology identified and improved with medication for anxiety. Additionally when she was admitted she had elevated troponin and was taken heart cath and had ostial diagonal disease but med management was recommended as well as managing hypertension, echo with EF 65% and no regional wallmotion abnormalities. Blood pressure medications were added to help medically optimize. Hospitalization complicated by worsening kidney function and there was a query of JAYDEN versus CKD, had a creatinine of 1.6 back in 2022 and suspect there is a large component of CKD however patient given some gentle hydration she had contrast with cath and rechecked and it was slightly up and was going sandra rechecked 1 more time for stability prior to deciding on discharge and in theinterim patient decline somewhat throughout the day and then spiked a temperature of 101.8 and had elevated CRP, ESR, Pro-Karthik, she was pancultured andher antibiotics broadened to vancomycin and Zosyn. Aside from her respiratory complaints there were no further complaints noted. Patient improved with broadening spectrum of antibiotics and cultures were negative. Suspect pneumonia was the source of her infection and was not covered by initial Coverage. Patient doing much better on day of discharge and feels ready to go home and has no acute complaints. Discharge instructions as followed: -You will be discharged on an increased dose of losartan at 100 mg and were started on metoprolol succinate 50 mg daily. It will also be important that youcontinue to take your statin that you begin to take a baby aspirin -You will need to follow-up with cardiology upon discharge, please call the office of Dr. Ford upon discharge to schedule your hospital follow-up appointment ) -Your right lung was noted to have concern for pneumonia however imaging recommended with follow-up chest CT in 6 to 8 weeks to verify resolution -Augmentin 875 mg twice daily for 5 days - Due to your glucose levels you have required much less insulin than previouslyprescribed, would advise starting with 30 units of long-acting with your other medications and monitoring glucose closely as you will likely need to increase your dose moving forward -You will also be discharged on aspirin 81 mg will need to continue atorvastatin -You also had low vitamin B-12 and vitamin D so you will be prescribed replacement for these -Any new prescriptions have been sent to the [facility] in [place] as it is open on Sundays -Please call your primary care provider's office upon discharge to schedule a hospital follow up within 1 week. -For any concerning signs or symptoms please call 911 or proceed to the nearest emergency department Physical Exam Narrative General: Alert, no acute distress HEENT: Atraumatic, normocephalic Eyes: Anicteric, normal conjunctiva, extraocular movements grossly intact Neck: Supple Respiratory: Improving aeration, not tachypneic and no respiratory distress Cardiovascular: Regular rate and rhythm GI: Soft, nontender, nondistended Extremities: No significant pitting edema Musculoskeletal: Moving all extremities Neuro: No overt focal neurological deficits Skin: No rashes appreciated Psych: Cooperative Weight / BMI Weight Weight: 153.5 kg Body Mass Index (BMI) 56.2 ABG / Lab / Microbiology Data 01/10/23 06:20 01/10/23 06:20 Laboratory: Laboratory Results - last 24 hr 01/09/23 16:34: POC Glucose 215 H 01/09/23 21:31: POC Glucose 240 H 01/10/23 05:51: POC Glucose 137 H 01/10/23 06:20: WBC 10.4, RBC 3.23 L, Hgb 8.8 L, Hct 28.2 L, MCV 87.3, MCH 27.2,MCHC 31.2 L, RDW Std Deviation 42.8, RDW Coeff of Linda 13.3, Plt Count 317, MPV 9.6, Immature Gran % (Auto) 1.000 H, Neut % (Auto) 57.6, Lymph % (Auto) 30.2, Collier % (Auto) 7.1, Eos % (Auto) 3.3, Baso % (Auto) 0.8, Absolute Neuts (auto) 6.0, Absolute Lymphs (auto) 3.15, Nucleated RBC % 0, Sodium 136, Potassium 4.3, Chloride 107, Carbon Dioxide 25.0, Anion Gap 4 L, BUN 27 H, Creatinine 1.19 H, Estim Creat Clear Calc 45.80, Est GFR (MDRD) Af Amer 60, Est GFR (MDRD) Non-Af 49 L, BUN/Creatinine Ratio 22.7 H, Glucose 139 H, Calcium 7.9 L, Total Bilirubin0.40, AST 37, ALT 44, Alkaline Phosphatase 359 H, Total Protein 6.2 L, Albumin 2.0 L, Globulin 4.2, Albumin/Globulin Ratio 0.5 L 01/10/23 11:36: POC Glucose 288 H Microbiology: Microbiology 01/07/23 16:20 Blood Culture (Wb) - Left Hand Blood Culture - Preliminary No growth in 48 hours. 01/07/23 16:18 Blood Culture (Wb) - Anticubital Left Blood Culture - Preliminary No growth in 48 hours. 01/09/23 08:25 Sputum, Expectorated/Coughed Gram Stain - Final 01/09/23 08:25 Sputum, Expectorated/Coughed Respiratory Culture - Preliminary Appears to be normal respiratory linette. Further studies to follow. 01/07/23 16:00 Urine, Clean Catch Urine Culture - Final Culture exhibits no growth. 01/05/23 15:45 Urine, Random Legionella Antigen - Final 01/05/23 15:45 Urine, Random Streptococcus pneumoniae Antigen (M - Final 01/05/23 13:56 Mucosa - Nasopharyngeal Respiratory Panel (PCR) - Final D/C Instructions Discharge Diet: Carb Control Diet Meaningful Use Info Meaningful Use Diagnoses (Choose all that apply): None applicable Discharge Plan Admission Admit Date/Time: 01/05/23 13:21 Primary Reason for Your Visit: Shortness of breath Attending Provider: Tasha Kim Primary Care Provider: Pato Mccall M1 [employer] Consulting Providers: Vaurn Guzman; Atul Cardozo Instructions Patient Instructions: DASH Plan Eat Heart Healthy Food Additional Instructions / Restrictions: DISCHARGE INSTRUCTIONS PLEASE READ *Please take this with you to your next doctors appointment* -You will be discharged on an increased dose of losartan at 100 mg and were started on metoprolol succinate 50 mg daily. It will also be important that youcontinue to take your statin that you begin to take a baby aspirin -You will need to follow-up with cardiology upon discharge, please call the office of Dr. Ford upon discharge to schedule your hospital follow-up appointment (ph [phone]) -Your right lung was noted to have concern for pneumonia however imaging recommended with follow-up chest CT in 6 to 8 weeks to verify resolution -Augmentin 875 mg twice daily for 5 days - Due to your glucose levels you have required much less insulin than previouslyprescribed, would advise starting with 30 units of long-acting with your other medications and monitoring glucose closely as you will likely need to increase your dose moving forward -You will also be discharged on aspirin 81 mg will need to continue atorvastatin -You also had low vitamin B-12 and vitamin D so you will be prescribed replacement for these -Any new prescriptions have been sent to the [facility] in [place] as it is open on Sundays -Please call your primary care provider's office upon discharge to schedule a hospital follow up within 1 week. -For any concerning signs or symptoms please call 911 or proceed to the nearest emergency department Discharge Orders/Prescriptions Prescriptions: New aspirin 81 mg Tablet,Delayed Release (Dr/Ec) 81 mg PO BREAKFAST Qty: 30 0RF cyanocobalamin (vitamin B-12) 500 mcg Tablet 1,000 mcg PO BREAKFAST 30 Days Qty: 60 0RF cholecalciferol (vitamin D3) 125 mcg (5,000 unit) Capsule 125 mcg PO DAILY 30 Days Qty: 30 0RF amoxicillin-pot clavulanate 875-125 mg tablet 1 tab PO BID 5 Days Qty: 10 0RF metoprolol succinate 50 mg Tablet Extended Release 24 Hr 50 mg PO DAILY 30 Days Qty: 30 0RF losartan 100 mg Tablet 100 mg PO DAILY 30 Days Qty: 30 0RF Continued lorazepam 1 mg tablet 1 mg PO DAILY PRN (Reason: Anxiety) albuterol sulfate 90 mcg/actuation HFA aerosol inhaler 2 puff INHALATION Q6H PRN (Reason: shortness of breath) citalopram 40 mg tablet 40 mg PO DAILY pioglitazone 30 mg tablet 30 mg PO DAILY glipizide 5 mg tablet extended release 24hr 5 mg PO DAILY atorvastatin 40 mg tablet 40 mg PO DAILY Changed insulin glargine [Lantus Solostar U-100 Insulin] 100 unit/mL (3 mL) insulin pen 30 unit SC DAILY Qty: 15 0RF Discontinued losartan 50 mg tablet 50 mg PO DAILY Referrals / Follow Up: Counseling,Center [Group of Physicians] - See Referral Note (01/20/23 9:30am with Jeane) Kirk Ford MD [Med Staff - Active Staff] - Pato Mccall NP, M1 [employer]-C [Primary Care Provider] - Within 1 Week Disposition Disposition (needs filled in before D/C Order can be placed): Home, Self Care Charges/Coding Visit Charges Inpatient E&M: 78365 Disch Hosp >30min 01/10/23 1655 <Electronically signed by Tasha Kmi MD> Cosigner Signature (if applicable): CC: MARSHALLC Pato Mccall; Dr. Tasha Kim MD~ Signed [facility] Work Phone: 1(131) 129-630712-03-2023 Discharge summary Author Tasha Kim [facility] January 10, 2023 2:41pm Note Date/Time January 10, 2023 2 :17pm [facility] Medical Records Department [address] [place] [address] Instructions for Home/Discharge Instructions 01/10/23 1415 MR#: [id number] Acct: [id number] Name: SHADE IBARRA Rep #:[id number] : 1965 57 From: Tasha Kim MD PCP: Pato Mccall, BRITTANEY-C Sta tus:ADM IN Discharge Instructions Diet Discharge Diet: Carb Control Diet Activity Discharge Activity: - (Increase activity as tolerated) Follow Up Care Test Results: Test results from this visit will be discussed in further detail at your follow- up appointment, if applicable. Discharge Plan Admission Admit Date/Time: 01/05/23 13:21 Primary Reason for Your Visit: Shortness of breath Attending Provider: Tasha Kim Primary Care Provider: Pato Mccall M1 [employer] Consulting Providers: Varun Guzman; Atul Cardozo Instructions Patient Instructions: DASH Plan Eat Heart Healthy Food Additional Instructions / Restrictions: DISCHARGE INSTRUCTIONS PLEASE READ *Please take this with you to your next doctors appointment* -You will be discharged on an increased dose of losartan at 100 mg and were started on metoprolol succinate 50 mg daily. It will also be important that youcontinue to take your statin that you begin to take a baby aspirin -You will need to follow-up with cardiology upon discharge, please call the office of Dr. Ford upon discharge to schedule your hospital follow-up appointment (ph [phone]) -Your right lung was noted to have concern for pneumonia however imaging recommended with follow-up chest CT in 6 to 8 weeks to verify resolution -Augmentin 875 mg twice daily for 5 days - Due to your glucose levels you have required much less insulin than previouslyprescribed, would advise starting with 30 units of long-acting with your other medications and monitoring glucose closely as you will likely need to increase your dose moving forward -You will also be discharged on aspirin 81 mg will need to continue atorvastatin -You also had low vitamin B-12 and vitamin D so you will be prescribed replacement for these -Any new prescriptions have been sent to the [facility] in [place] as it is open on Sundays -Please call your primary care provider's office upon discharge to schedule a hospital follow up within 1 week. -For any concerning signs or symptoms please call 911 or proceed to the nearest emergency department Discharge Orders/Prescriptions Prescriptions: New aspirin 81 mg Tablet,Delayed Release (Dr/Ec) 81 mg PO BREAKFAST Qty: 30 0RF cyanocobalamin (vitamin B-12) 500 mcg Tablet 1,000 mcg PO BREAKFAST 30 Days Qty: 60 0RF cholecalciferol (vitamin D3) 125 mcg (5,000 unit) Capsule 125 mcg PO DAILY 30 Days Qty: 30 0RF amoxicillin-pot clavulanate 875-125 mg tablet 1 tab PO BID 5 Days Qty: 10 0RF metoprolol succinate 50 mg Tablet Extended Release 24 Hr 50 mg PO DAILY 30 Days Qty: 30 0RF losartan 100 mg Tablet 100 mg PO DAILY 30 Days Qty: 30 0RF Continued lorazepam 1 mg tablet 1 mg PO DAILY PRN (Reason: Anxiety) albuterol sulfate 90 mcg/actuation HFA aerosol inhaler 2 puff INHALATION Q6H PRN (Reason: shortness of breath) citalopram 40 mg tablet 40 mg PO DAILY pioglitazone 30 mg tablet 30 mg PO DAILY glipizide 5 mg tablet extended release 24hr 5 mg PO DAILY atorvastatin 40 mg tablet 40 mg PO DAILY Changed insulin glargine [Lantus Solostar U-100 Insulin] 100 unit/mL (3 mL) insulin pen 30 unit SC DAILY Qty: 15 0RF Discontinued losartan 50 mg tablet 50 mg PO DAILY Referrals / Follow Up: Counseling,Center [Group of Physicians] - See Referral Note (01/20/23 9:30am with Jeane) Kirk Ford MD [Med Staff - Active Staff] - Pato Mccall NP, M1 [employer]-C [Primary Care Provider] - Within 1 Week Disposition Disposition (needs filled in before D/C Order can be placed): Home, Self Care 01/10/23 1441<Electronically signed by Tasha Kim MD>Tasha Kim MD CC: M1 [employer]-C Pato Mccall; Dr. Atul Cardozo DO; Dr. Varun Guzman MD ~ Signed [facility] Work Phone: 1(423) 457-465012-03-2023 Discharge summary Author Tasha Kim [facility] January 10, 2023 2:41pm Note Date/Time January 10, 2023 2 :17pm [facility] Medical Records Department [address] [place] [address] Instructions for Home/Discharge Instructions 01/10/23 1415 MR#: [id number] Acct: [id number] Name: SHADE IABRRA Rep #:[id number] : 1965 57 From: Tasha Kim MD PCP: CHHAYA Malcolm Sta tus:ADM IN Discharge Instructions Diet Discharge Diet: Carb Control Diet Activity Discharge Activity: - (Increase activity as tolerated) Follow Up Care Test Results: Test results from this visit will be discussed in further detail at your follow- up appointment, if applicable. Discharge Plan Admission Admit Date/Time: 01/05/23 13:21 Primary Reason for Your Visit: Shortness of breath Attending Provider: Tasha Kim Primary Care Provider: Pato Mccall M1 [employer] Consulting Providers: Varun Guzman; Atul Cardozo Instructions Patient Instructions: DASH Plan Eat Heart Healthy Food Additional Instructions / Restrictions: DISCHARGE INSTRUCTIONS PLEASE READ *Please take this with you to your next doctors appointment* -You will be discharged on an increased dose of losartan at 100 mg and were started on metoprolol succinate 50 mg daily. It will also be important that youcontinue to take your statin that you begin to take a baby aspirin -You will need to follow-up with cardiology upon discharge, please call the office of Dr. Ford upon discharge to schedule your hospital follow-up appointment (ph [phone]) -Your right lung was noted to have concern for pneumonia however imaging recommended with follow-up chest CT in 6 to 8 weeks to verify resolution -Augmentin 875 mg twice daily for 5 days - Due to your glucose levels you have required much less insulin than previouslyprescribed, would advise starting with 30 units of long-acting with your other medications and monitoring glucose closely as you will likely need to increase your dose moving forward -You will also be discharged on aspirin 81 mg will need to continue atorvastatin -You also had low vitamin B-12 and vitamin D so you will be prescribed replacement for these -Any new prescriptions have been sent to the [facility] in [place] as it is open on Sundays -Please call your primary care provider's office upon discharge to schedule a hospital follow up within 1 week. -For any concerning signs or symptoms please call 911 or proceed to the nearest emergency department Discharge Orders/Prescriptions Prescriptions: New aspirin 81 mg Tablet,Delayed Release (Dr/Ec) 81 mg PO BREAKFAST Qty: 30 0RF cyanocobalamin (vitamin B-12) 500 mcg Tablet 1,000 mcg PO BREAKFAST 30 Days Qty: 60 0RF cholecalciferol (vitamin D3) 125 mcg (5,000 unit) Capsule 125 mcg PO DAILY 30 Days Qty: 30 0RF amoxicillin-pot clavulanate 875-125 mg tablet 1 tab PO BID 5 Days Qty: 10 0RF metoprolol succinate 50 mg Tablet Extended Release 24 Hr 50 mg PO DAILY 30 Days Qty: 30 0RF losartan 100 mg Tablet 100 mg PO DAILY 30 Days Qty: 30 0RF Continued lorazepam 1 mg tablet 1 mg PO DAILY PRN (Reason: Anxiety) albuterol sulfate 90 mcg/actuation HFA aerosol inhaler 2 puff INHALATION Q6H PRN (Reason: shortness of breath) citalopram 40 mg tablet 40 mg PO DAILY pioglitazone 30 mg tablet 30 mg PO DAILY glipizide 5 mg tablet extended release 24hr 5 mg PO DAILY atorvastatin 40 mg tablet 40 mg PO DAILY Changed insulin glargine [Lantus Solostar U-100 Insulin] 100 unit/mL (3 mL) insulin pen 30 unit SC DAILY Qty: 15 0RF Discontinued losartan 50 mg tablet 50 mg PO DAILY Referrals / Follow Up: Counseling,Center [Group of Physicians] - See Referral Note (01/20/23 9:30am with Jeane) Kirk Ford MD [Med Staff - Active Staff] - Pato Mccall NP, NP-C [Primary Care Provider] - Within 1 Week Disposition Disposition (needs filled in before D/C Order can be placed): Home, Self Care 01/10/23 1441<Electronically signed by Tasha Kim MD>Tasha Kim MD CC: M1 [employer]-C Pato Mccall; Dr. Atul Cardozo DO; Dr. Varun Guzman MD ~ Signed [facility] Work Phone: 1(952) 586-418212-03-2023 [facility]12-02-2023 Consult note Author Tasha Bar[facility] January 09, 2023 5:27pm Note Date/Time January 07, 2023 6:13pm [facility] Medical Records Department [address] [place] [address] Pharmacokinetic/Renal -Consult 01/07/23 1812 MR#: [id number] Acct: [id number] Name: SHADE IBARRA Rep #:[id number] : 1965 57 From: Ben Hoffman PCP: CHHAYA Malcolm Sta tus:ADM IN Y Location: [place] [address] Consult Antibiotic Management Pharmacy has been consulted to manage selected antiobiotic: Vancomycin Type of Intervention Type of Consult: New start Suspected Infection Suspected Infection: Sepsis, Pneumonia and Other (UTI) Prior Doses of Antibiotics Prior Doses of Antibiotics Received/Current Regimen: Vancomycin 2000 mg IV x 1 given 01/07/23 @ 1757 Labs Labs: Sodium 128 mmol/L (136-145) L 01/07/23 14:24 Potassium 4.0 mmol/L (3.5-5.1) 01/07/23 14:24 Chloride 97 mmol/L (98-107) L 01/07/23 14:24 Carbon Dioxide 14.0 mmol/L (21.0-32.0) L 01/07/23 14:24 Anion Gap 17 (5-15) H 01/07/23 14:24 BUN 31 mg/dL (7-18) H 01/07/23 14:24 Creatinine 1.78 mg/dL (0.55-1.02) H 01/07/23 14:24 Est GFR (MDRD) Af Amer 37 mL/min (>60) L 01/07/23 14:24 Est GFR (MDRD) Non-Af 31 mL/min (>60) L 01/07/23 14:24 BUN/Creatinine Ratio 17.4 RATIO (10-20) 01/07/23 14:24 Glucose 259 mg/dL (74-106) H 01/07/23 14:24 Microbiology Microbiology: Microbiology 01/05/23 15:45 Urine, Random Legionella Antigen - Final 01/05/23 15:45 Urine, Random Streptococcus pneumoniae Antigen (M - Final 01/05/23 13:56 Mucosa - Nasopharyngeal Respiratory Panel (PCR) - Final Dosing Weight Weight used for dosin kg Estimated Creatinine Clearance Estimated Creatinine Clearance: ~51 Goal Trough Goal Trough: 15-20 mcg/mL Pharmacy Plan for Drug Dosing Pharmacy Plan for Drug Dosing: Vancomycin 2000 mg IV x 1 given 01/07 @ 1757, followed by 1250 mg IV Q12H. Pharmacy Service will continue to monitor and adjust dosing as required. Follow-Up Labs Follow-Up Labs: Trough: Vancomycin Date/Time Labs Ordered Labs to be done on [date and time ordered]: 01/09/23 @ 0530 01/07/23 1815 <Electronically signed by Ben samaniego> Date _ Ben Hoffman 12/02/23 1727 <Electronically signed by Tasha Kim MD> Cosigner Signature (if applicable): Date Tasha Kim MD CC: ~ Signed [facility] Work Phone: 1(865) 721-727912-02-2023 Consult note Author Dio Grove [facility] January 09, 2023 12:10pm Note Date/Time January 09, 2023 1 2:05pm [facility] Medical Records Department [address] [place] [address] Pharmacokinetic/Renal -Consult 01/09/23 1205 MR#: [id number] Acct: [id number] Name: SHADE IBARRA Rep #:[id number] : 1965 57 From: Dio Grove PCP: CHHAYA Malcolm tus:ADM IN Location: [place] [address] Consult Antibiotic Management Pharmacy has been consulted to manage selected antiobiotic: Vancomycin Type of Intervention Type of Consult: Follow-up Suspected Infection Suspected Infection: Pneumonia Prior Doses of Antibiotics Prior Doses of Antibiotics Received/Current Regimen: Previously on 1250mg iv q12h. Labs Labs: Sodium 138 mmol/L (136-145) 01/09/23 05:17 Potassium 3.9 mmol/L (3.5-5.1) 01/09/23 05:17 Chloride 107 mmol/L (98-107) 01/09/23 05:17 Carbon Dioxide 24.0 mmol/L (21.0-32.0) 01/09/23 05:17 Anion Gap 7 (5-15) 01/09/23 05:17 BUN 36 mg/dL (7-18) H 01/09/23 05:17 Creatinine 1.40 mg/dL (0.55-1.02) H 01/09/23 05:17 Est GFR (MDRD) Af Amer 49 mL/min (>60) L 01/09/23 05:17 Est GFR (MDRD) Non-Af 41 mL/min (>60) L 01/09/23 05:17 BUN/Creatinine Ratio 25.7 RATIO (10-20) H 01/09/23 05:17 Glucose 116 mg/dL (74-106) H 01/09/23 05:17 Vancomycin Trough 20.4 ug/mL (5.0-15.0) H 01/09/23 05:17 Random Vancomycin 15.7 ug/mL (0.0-15.0) H 01/09/23 10:57 Microbiology Microbiology: Microbiology 01/07/23 16:00 Urine, Clean Catch Urine Culture - Preliminary Culture exhibits no growth. 01/05/23 15:45 Urine, Random Legionella Antigen - Final 01/05/23 15:45 Urine, Random Streptococcus pneumoniae Antigen (M - Final 01/05/23 13:56 Mucosa - Nasopharyngeal Respiratory Panel (PCR) - Final Dosing Weight Weight used for dosin kg Estimated Creatinine Clearance Estimated Creatinine Clearance: 65ml/min Goal Trough Goal Trough: 15-20 mcg/mL Pharmacy Plan for Drug Dosing Pharmacy Plan for Drug Dosing: Trough today @0517 was 20.4. A random level today @1057 was 15.7 and in therapeutic range of 15-20. This was ~17 hrs post dose. Using adjusted body weight, CrCl is ~65ml/min. Recommend restarting vancomycin at dose of 1000mg iv q12h with trough level before 4th dose. Pharmacy Service will continue to monitor and adjust dosing as required. Follow-Up Labs Follow-Up Labs: Trough: Vancomycin (12.3.23 @2330) 01/09/23 1210 <Electronically signed by Dio Grove> Date _ Dio Smith Signature (if applicable): Date CC: ~ Signed [facility] Work Phone: 1(785) 756-708812-02-2023 Progress note Author Tasha Kim [facility] January 09, 2023 10:20am Note Date/Time January 09, 2023 1 0:20am [facility] Medical Records Department [address] [place] [address] Progress Note - Hospitalist 01/09/23 1015 MR#: [id number] Acct: [id number] Name: SHADE IBARRA Rep #:[id number] : 1965 57 From: Tasha Kim MD PCP: CHHAYA Malcolm tus:ADM IN Location: [place] [address] Reason for Visit Reason for Visit: Diagnoses Essential (primary) hypertension (01/05/23) Non-ST elevation (NSTEMI) myocardial infarction (01/05/23) Pneumonia, unspecified organism (01/05/23) Acute respiratory failure with hypoxia (01/05/23) Subjective Subjective Patient reports feeling generally weak and some shortness of breath on exertion,is feeling better this and extent however Objective Data Objective Data Vital Signs: Vital Signs Temp Pulse Resp BP Pulse Ox O2 Del Method O2 Flow Rate 97.8 F 63 18 135/92 H 98 Room Air 2 01/09/23 08:13 01/09/23 08:21 01/09/23 08:13 01/09/23 08:13 01/09/23 08:13 01/09/23 08:13 01/07/23 09:00 FiO2 21 01/09/23 00:00 Oxygen Flow Rate (L/min) 2 Oxygen Delivery Method Room Air Weight: 153.5 kg Body Mass Index (BMI) 56.2 Intake & Output: Intake and Output for Last 24 Hours 01/07/23 01/08/23 01/09/23 23:59 23:59 23:59 Intake Total 2835.83 / 3315.83 2583.17 / 3033.17 955 / 955 Output Total 1050 / 1050 2150 / 2550 750 / 750 Balance 1785.83 / 2265.83 433.17 / 483.17 205 / 205 Lab / Micro Data 01/09/23 05:17 01/09/23 05:17 Labs: Laboratory Results - last 24 hr 01/08/23 11:09: POC Glucose 233 H 01/08/23 16:25: POC Glucose 235 H 01/08/23 22:06: POC Glucose 263 H 01/09/23 05:17: WBC 10.1, RBC 3.15 L, Hgb 8.6 L, Hct 27.2 L, MCV 86.3, MCH 27.3,MCHC 31.6 L, RDW Std Deviation 41.6, RDW Coeff of Linda 13.2, Plt Count 252, MPV 9.8, Immature Gran % (Auto) 0.700, Neut % (Auto) 61.7, Lymph % (Auto) 23.6, Collier% (Auto) 11.4 H, Eos % (Auto) 2.0, Baso % (Auto) 0.6, Absolute Neuts (auto) 6.2,Absolute Lymphs (auto) 2.37, Nucleated RBC % 0, ESR 82 H, Sodium 138, Potassium 3.9, Chloride 107, Carbon Dioxide 24.0, Anion Gap 7, BUN 36 H, Creatinine 1.40 H, Estim Creat Clear Calc 38.93, Est GFR (MDRD) Af Amer 49 L, Est GFR (MDRD) Non-Af 41 L, BUN/Creatinine Ratio 25.7 H, Glucose 116 H, Calcium 7.8 L, Magnesium 2.1, Total Bilirubin 0.40, AST 33, ALT 39, Alkaline Phosphatase 311 H, C-React Prot Ext Range 132.00 H, Total Protein 5.9 L, Albumin 1.9 L, Globulin 4.0, Albumin/Globulin Ratio 0.5 L, Procalcitonin 3.15 H, Vancomycin Trough 20.4 H 01/09/23 07:35: POC Glucose 101 Micro: Microbiology 01/07/23 16:00 Urine, Clean Catch Urine Culture - Preliminary Culture exhibits no growth. 01/05/23 15:45 Urine, Random Legionella Antigen - Final 01/05/23 15:45 Urine, Random Streptococcus pneumoniae Antigen (M - Final 01/05/23 13:56 Mucosa - Nasopharyngeal Respiratory Panel (PCR) - Final Physical Exam Narrative General: Alert, no acute distress HEENT: Atraumatic, normocephalic Eyes: Anicteric, normal conjunctiva, extraocular movements grossly intact Neck: Supple Respiratory: Improving aeration, not tachypneic and no respiratory distress Cardiovascular: Regular rate and rhythm GI: Soft, nontender, nondistended Extremities: No significant pitting edema Musculoskeletal: Moving all extremities Neuro: No overt focal neurological deficits Skin: No rashes appreciated Psych: Cooperative Assessment & Plan Assessment/Plan (1) NSTEMI, initial episode of care: (2) Acute hypoxic respiratory failure: (3) Community acquired pneumonia: PLAN: Plan Patient is a 57-year-old female who presented to [facility] ED on 12/28/2022 with chest pain and worsening shortness of breath. #Febrile -Patient with temperature of 101.8 ?F, unclear etiology she is presently being treated for CAP with Rocephin and azithromycin -We will get blood cultures, Pro-Karthik, ESR, CRP -Endorse later in the afternoon that she thought maybe she had a UTI so UA and urine culture ordered -Respiratory panel and urine antigens negative on admission, had recent COVID good checked may be false positive and unclear if this would be clinically significant -We will continue present antibiotics pending culture data and clinical progress -01/08: Has not been febrile since medications have been adjusted, ESR had been 70 and up trended to 76 so roughly the same and CRP was 237 and down trended to 207 after changing antibiotics, Pro-Karthik was 12. Patient had antibiotics broadened to vancomycin and Zosyn, cultures pending -01/09: Blood culture still pending, urine culture no growth to date, patient was able to give sputum culture, CRP and Pro-Karthik downtrending and patient clinically improving, continue to await cultures #JAYDEN vs ckd Creatinine 1.44 on admit. Baseline creatinine appears to be around 0.8-0.9. Most likely prerenal etiology in setting of NSTEMI with possible pneumonia as noted above. ? Monitor daily BMP and urine output. Can expand workup if kidney function doesnot quickly improve. -01/06: Unchanged today, continue supportive care, unclear if JAYDEN or CKD as patient did have a creatinine of 1.6 09/2022 but that was newly elevated. Continue to trend -01/07: Had creatinine of 1.6 09/27/2022 and was subsequently 1.44 here, increased to 1.74 possibly secondary to heart cath, give gentle hydration and will recheck. We will also check BNP to help assess fluid level, check UA and urine culture, will also get urine lites/urine studies, can consider kidney ultrasound pending results and progress -01/08: Did improve slightly today with fluids and antibiotics -01/09: Continues to improve #Poorly controlled type 2 diabetes with hyperglycemia Blood glucose 335 on admit. Home regimen appears to be Lantus 63 units daily, glipizide 5 mg daily, pioglitazone 30 mg daily. Previous A1c values range from 10 to 12% over the last year. ? Will start Lantus 50 units in the morning with high-dose sliding scale insulin. Adjust as needed. Repeat A1c ordered. -01/06: Continue to adjust insulin -01/07: A1c 10.4, continue to adjust insulin -01/08: Glucose only 142 this a.m., query for improved due to treating underlying infection, to avoid hypoglycemia we will decrease glargine but can reincrease as needed -01/09: A.m. glucose only 100, will further decrease insulin #Mild hyponatremia ? Sodium 131 on admit. Suspect primarily pseudohyponatremia in setting of hyperglycemia, corrected sodium of around 134. Treating diabetes as above. Monitor daily BMP. -01/06: Roughly unchanged today -01/07: Did decrease some, checking serum and urine osmolality and urine studies, patient given gentle hydration as kidney function bumped up after heartcath, check TSH and BNP -01/08: Improved today -01/09: Continues to improve #NSTEMI w/ CAD no stenting Moderate to high concern for type I NSTEMI given elevated troponins on admission, known history of poorly controlled type 2 diabetes and morbid obesity, recent COVID infection. Also have concern for new onset heart failure due to recent COVID infection. Troponin trend 464 to 491 in the ED. No EKG changes noted. BNP 276. Given aspirin 325 mg in the ED and initiated on a heparin drip. ? Admit under inpatient status to PCU. Cardiology consulted. Continue heparin drip. Trend troponin. Monitor telemetry. Echo ordered. Continue home statin. -01/06: Patient for heart cath and had ostial diagonal disease but med management was recommended as well as managing hypertension, echo with EF 65% and no regional wall motion abnormalities -01/07: Continue losartan, aspirin, statin, metoprolol #Acute hypoxia, improving Does not wear oxygen at baseline. Required up to 4 L nasal cannula in the ED, was weaned to 2 L nasal cannula with oxygen saturations in the low to mid 90s. Suspect secondary to possible pneumonia as noted below plus or minus mild volumeoverload secondary to concern for cardiac dysfunction. ? Wean supplemental oxygen as able. Treating pneumonia as below and NSTEMI as above. Received 1 dose of IV Lasix in the ED with moderate urine output, can spot dose IV Lasix as needed. -01/06: O2 sats improving, will continue antibiotics. Had CTA in ED with small bilateral pleural effusions with minimally dependent lower lobe consolidation and some interlobular septal thickening with scattered ill-defined nodules whichcould be infectious process or edema and is a precautionary measure recommended follow-up CT in 6 to 8 weeks -01/07: Was tachypneic overnight but ABG demonstrated respiratory alkalosis and patient seemed to improve with improvement of anxiety, patient was ambulated anddid not require home O2 #Concern for community-acquired pneumonia, unknown organism; recent COVID infection CTA chest on admit showed small bilateral pleural effusions with small lower lobe consolidation, or lobular septal thickening throughout the right lung that may be secondary to an infectious process versus pulmonary edema. WBC count 14. Afebrile, vital signs otherwise stable. Patient reports mild shortness of breath with recent COVID infection that has significantly worsened over the pastfew days. Denies any significant cough or sputum production. ? Will empirically treat with azithromycin and ceftriaxone for now. Follow-up sputum culture, respiratory PCR panel, urine antigens. Trend CBC. -01/06: Respiratory panel negative, Legionella and strep pneumo negative. Continue present antibiotics -01/07: See above #Normocytic anemia Hemoglobin 10.3 on admit, MCV 89. Most recent hemoglobin was 11.4 in 09/2022, previous baseline was around 12-13 back in 2018. Unclear etiology, suspect mostlikely mild worsening from baseline, no bleeding noted. ? Follow-up a.m. CBC. Iron studies, vitamin B12, folate ordered. -01/06: Continue to monitor -01/07: Downtrended slightly but no evidence of blood loss, continue to trend Chronic medical conditions: ? Morbid obesity: BMI 56 on admit, lifestyle modifications encouraged. ? Anxiety/depression: Stable. Continued home citalopram, Ativan 1 mg daily as needed. ? MUNA: Reports compliance with home CPAP. CPAP ordered while inpatient. ? Asthma: Continued home albuterol as needed. ? Hypertension: Continuing medications at present DVT prophylaxis: Heparin subq CODE STATUS: Full code, verified Total clinical time spent by myself addressing the patient's medical issues, reviewing all the data, and collaborating with patient's care team: 40 minutes. Charges/Coding Visit Charges Inpatient E&M: 99970 Subs Hosp L2 01/09/23 1020 <Electronically signed by Tasha Kim MD> Cosigner Signature (if applicable): CC: ~ Signed [facility] Work Phone: 1(713) 972-647512-02-2023 Progress note Author Tasha Kim [facility] January 09, 2023 10:20am Note Date/Time January 09, 2023 1 0:20am [facility] Medical Records Department [address] [place] [id number] Progress Note - Hospitalist 01/09/23 1015 MR#: [id number] Acct: [id number] Name: SHADE IBARRA Rep #:[id number] : 1965 57 From: Tasha Kim MD PCP: Pato Mccall, M1 ARMOR CREWMANAnthony Rico tus:ADM IN Location: [place] [address] Reason for Visit Reason for Visit: Diagnoses Essential (primary) hypertension (01/05/23) Non-ST elevation (NSTEMI) myocardial infarction (01/05/23) Pneumonia, unspecified organism (01/05/23) Acute respiratory failure with hypoxia (01/05/23) Subjective Subjective Patient reports feeling generally weak and some shortness of breath on exertion,is feeling better this and extent however Objective Data Objective Data Vital Signs: Vital Signs Temp Pulse Resp BP Pulse Ox O2 Del Method O2 Flow Rate 97.8 F 63 18 135/92 H 98 Room Air 2 01/09/23 08:13 01/09/23 08:21 01/09/23 08:13 01/09/23 08:13 01/09/23 08:13 01/09/23 08:13 01/07/23 09:00 FiO2 21 01/09/23 00:00 Oxygen Flow Rate (L/min) 2 Oxygen Delivery Method Room Air Weight: 153.5 kg Body Mass Index (BMI) 56.2 Intake & Output: Intake and Output for Last 24 Hours 01/07/23 01/08/23 01/09/23 23:59 23:59 23:59 Intake Total 2835.83 / 3315.83 2583.17 / 3033.17 955 / 955 Output Total 1050 / 1050 2150 / 2550 750 / 750 Balance 1785.83 / 2265.83 433.17 / 483.17 205 / 205 Lab / Micro Data 01/09/23 05:17 01/09/23 05:17 Labs: Laboratory Results - last 24 hr 01/08/23 11:09: POC Glucose 233 H 01/08/23 16:25: POC Glucose 235 H 01/08/23 22:06: POC Glucose 263 H 01/09/23 05:17: WBC 10.1, RBC 3.15 L, Hgb 8.6 L, Hct 27.2 L, MCV 86.3, MCH 27.3,MCHC 31.6 L, RDW Std Deviation 41.6, RDW Coeff of Linda 13.2, Plt Count 252, MPV 9.8, Immature Gran % (Auto) 0.700, Neut % (Auto) 61.7, Lymph % (Auto) 23.6, Collier% (Auto) 11.4 H, Eos % (Auto) 2.0, Baso % (Auto) 0.6, Absolute Neuts (auto) 6.2,Absolute Lymphs (auto) 2.37, Nucleated RBC % 0, ESR 82 H, Sodium 138, Potassium 3.9, Chloride 107, Carbon Dioxide 24.0, Anion Gap 7, BUN 36 H, Creatinine 1.40 H, Estim Creat Clear Calc 38.93, Est GFR (MDRD) Af Amer 49 L, Est GFR (MDRD) Non-Af 41 L, BUN/Creatinine Ratio 25.7 H, Glucose 116 H, Calcium 7.8 L, Magnesium 2.1, Total Bilirubin 0.40, AST 33, ALT 39, Alkaline Phosphatase 311 H, C-React Prot Ext Range 132.00 H, Total Protein 5.9 L, Albumin 1.9 L, Globulin 4.0, Albumin/Globulin Ratio 0.5 L, Procalcitonin 3.15 H, Vancomycin Trough 20.4 H 01/09/23 07:35: POC Glucose 101 Micro: Microbiology 01/07/23 16:00 Urine, Clean Catch Urine Culture - Preliminary Culture exhibits no growth. 01/05/23 15:45 Urine, Random Legionella Antigen - Final 01/05/23 15:45 Urine, Random Streptococcus pneumoniae Antigen (M - Final 01/05/23 13:56 Mucosa - Nasopharyngeal Respiratory Panel (PCR) - Final Physical Exam Narrative General: Alert, no acute distress HEENT: Atraumatic, normocephalic Eyes: Anicteric, normal conjunctiva, extraocular movements grossly intact Neck: Supple Respiratory: Improving aeration, not tachypneic and no respiratory distress Cardiovascular: Regular rate and rhythm GI: Soft, nontender, nondistended Extremities: No significant pitting edema Musculoskeletal: Moving all extremities Neuro: No overt focal neurological deficits Skin: No rashes appreciated Psych: Cooperative Assessment & Plan Assessment/Plan (1) NSTEMI, initial episode of care: (2) Acute hypoxic respiratory failure: (3) Community acquired pneumonia: PLAN: Plan Patient is a 57-year-old female who presented to [facility] ED on 12/28/2022 with chest pain and worsening shortness of breath. #Febrile -Patient with temperature of 101.8 ?F, unclear etiology she is presently being treated for CAP with Rocephin and azithromycin -We will get blood cultures, Pro-Karthik, ESR, CRP -Endorse later in the afternoon that she thought maybe she had a UTI so UA and urine culture ordered -Respiratory panel and urine antigens negative on admission, had recent COVID good checked may be false positive and unclear if this would be clinically significant -We will continue present antibiotics pending culture data and clinical progress -01/08: Has not been febrile since medications have been adjusted, ESR had been 70 and up trended to 76 so roughly the same and CRP was 237 and down trended to 207 after changing antibiotics, Pro-Karthik was 12. Patient had antibiotics broadened to vancomycin and Zosyn, cultures pending -01/09: Blood culture still pending, urine culture no growth to date, patient was able to give sputum culture, CRP and Pro-Karthik downtrending and patient clinically improving, continue to await cultures #JAYDEN vs ckd Creatinine 1.44 on admit. Baseline creatinine appears to be around 0.8-0.9. Most likely prerenal etiology in setting of NSTEMI with possible pneumonia as noted above. ? Monitor daily BMP and urine output. Can expand workup if kidney function doesnot quickly improve. -01/06: Unchanged today, continue supportive care, unclear if JADYEN or CKD as patient did have a creatinine of 1.6 09/2022 but that was newly elevated. Continue to trend -01/07: Had creatinine of 1.6 09/27/2022 and was subsequently 1.44 here, increased to 1.74 possibly secondary to heart cath, give gentle hydration and will recheck. We will also check BNP to help assess fluid level, check UA and urine culture, will also get urine lites/urine studies, can consider kidney ultrasound pending results and progress -01/08: Did improve slightly today with fluids and antibiotics -01/09: Continues to improve #Poorly controlled type 2 diabetes with hyperglycemia Blood glucose 335 on admit. Home regimen appears to be Lantus 63 units daily, glipizide 5 mg daily, pioglitazone 30 mg daily. Previous A1c values range from 10 to 12% over the last year. ? Will start Lantus 50 units in the morning with high-dose sliding scale insulin. Adjust as needed. Repeat A1c ordered. -01/06: Continue to adjust insulin -01/07: A1c 10.4, continue to adjust insulin -01/08: Glucose only 142 this a.m., query for improved due to treating underlying infection, to avoid hypoglycemia we will decrease glargine but can reincrease as needed -01/09: A.m. glucose only 100, will further decrease insulin #Mild hyponatremia ? Sodium 131 on admit. Suspect primarily pseudohyponatremia in setting of hyperglycemia, corrected sodium of around 134. Treating diabetes as above. Monitor daily BMP. -01/06: Roughly unchanged today -01/07: Did decrease some, checking serum and urine osmolality and urine studies, patient given gentle hydration as kidney function bumped up after heartcath, check TSH and BNP -01/08: Improved today -01/09: Continues to improve #NSTEMI w/ CAD no stenting Moderate to high concern for type I NSTEMI given elevated troponins on admission, known history of poorly controlled type 2 diabetes and morbid obesity, recent COVID infection. Also have concern for new onset heart failure due to recent COVID infection. Troponin trend 464 to 491 in the ED. No EKG changes noted. BNP 276. Given aspirin 325 mg in the ED and initiated on a heparin drip. ? Admit under inpatient status to PCU. Cardiology consulted. Continue heparin drip. Trend troponin. Monitor telemetry. Echo ordered. Continue home statin. -01/06: Patient for heart cath and had ostial diagonal disease but med management was recommended as well as managing hypertension, echo with EF 65% and no regional wall motion abnormalities -01/07: Continue losartan, aspirin, statin, metoprolol #Acute hypoxia, improving Does not wear oxygen at baseline. Required up to 4 L nasal cannula in the ED, was weaned to 2 L nasal cannula with oxygen saturations in the low to mid 90s. Suspect secondary to possible pneumonia as noted below plus or minus mild volumeoverload secondary to concern for cardiac dysfunction. ? Wean supplemental oxygen as able. Treating pneumonia as below and NSTEMI as above. Received 1 dose of IV Lasix in the ED with moderate urine output, can spot dose IV Lasix as needed. -01/06: O2 sats improving, will continue antibiotics. Had CTA in ED with small bilateral pleural effusions with minimally dependent lower lobe consolidation and some interlobular septal thickening with scattered ill-defined nodules whichcould be infectious process or edema and is a precautionary measure recommended follow-up CT in 6 to 8 weeks -01/07: Was tachypneic overnight but ABG demonstrated respiratory alkalosis and patient seemed to improve with improvement of anxiety, patient was ambulated anddid not require home O2 #Concern for community-acquired pneumonia, unknown organism; recent COVID infection CTA chest on admit showed small bilateral pleural effusions with small lower lobe consolidation, or lobular septal thickening throughout the right lung that may be secondary to an infectious process versus pulmonary edema. WBC count 14. Afebrile, vital signs otherwise stable. Patient reports mild shortness of breath with recent COVID infection that has significantly worsened over the pastfew days. Denies any significant cough or sputum production. ? Will empirically treat with azithromycin and ceftriaxone for now. Follow-up sputum culture, respiratory PCR panel, urine antigens. Trend CBC. -01/06: Respiratory panel negative, Legionella and strep pneumo negative. Continue present antibiotics -01/07: See above #Normocytic anemia Hemoglobin 10.3 on admit, MCV 89. Most recent hemoglobin was 11.4 in 09/2022, previous baseline was around 12-13 back in 2018. Unclear etiology, suspect mostlikely mild worsening from baseline, no bleeding noted. ? Follow-up a.m. CBC. Iron studies, vitamin B12, folate ordered. -01/06: Continue to monitor -01/07: Downtrended slightly but no evidence of blood loss, continue to trend Chronic medical conditions: ? Morbid obesity: BMI 56 on admit, lifestyle modifications encouraged. ? Anxiety/depression: Stable. Continued home citalopram, Ativan 1 mg daily as needed. ? MUNA: Reports compliance with home CPAP. CPAP ordered while inpatient. ? Asthma: Continued home albuterol as needed. ? Hypertension: Continuing medications at present DVT prophylaxis: Heparin subq CODE STATUS: Full code, verified Total clinical time spent by myself addressing the patient's medical issues, reviewing all the data, and collaborating with patient's care team: 40 minutes. Charges/Coding Visit Charges Inpatient E&M: 36775 Subs Hosp L2 01/09/23 1020 <Electronically signed by Tasha Kim MD> Cosigner Signature (if applicable): CC: ~ Signed [facility] Work Phone: [phone] Consult note Author Avi Barcenas [facility] January 09, 2023 6:39am Note Date/Time January 09, 2023 6 :39am [facility] Medical Records Department [address] [place] [id number] Pharmacokinetic/Renal -Consult 01/09/23 0638 MR#: [id number] Acct: [id number] Name: SHADE IBARRA Rep #:[id number] : 1965 57 From: Avi Mcneil od PCP: CHHAYA Malcolm tus:ADM IN Y Location: [place] [address] Consult Antibiotic Management Pharmacy has been consulted to manage selected antiobiotic: Vancomycin Type of Intervention Type of Consult: Follow-up Labs Labs: Sodium 138 mmol/L (136-145) 01/09/23 05:17 Potassium 3.9 mmol/L (3.5-5.1) 01/09/23 05:17 Chloride 107 mmol/L (98-107) 01/09/23 05:17 Carbon Dioxide 24.0 mmol/L (21.0-32.0) 01/09/23 05:17 Anion Gap 7 (5-15) 01/09/23 05:17 BUN 36 mg/dL (7-18) H 01/09/23 05:17 Creatinine 1.40 mg/dL (0.55-1.02) H 01/09/23 05:17 Est GFR (MDRD) Af Amer 49 mL/min (>60) L 01/09/23 05:17 Est GFR (MDRD) Non-Af 41 mL/min (>60) L 01/09/23 05:17 BUN/Creatinine Ratio 25.7 RATIO (10-20) H 01/09/23 05:17 Glucose 116 mg/dL (74-106) H 01/09/23 05:17 Vancomycin Trough 20.4 ug/mL (5.0-15.0) H 01/09/23 05:17 Microbiology Microbiology: Microbiology 01/05/23 15:45 Urine, Random Legionella Antigen - Final 01/05/23 15:45 Urine, Random Streptococcus pneumoniae Antigen (M - Final 01/05/23 13:56 Mucosa - Nasopharyngeal Respiratory Panel (PCR) - Final Goal Trough Goal Trough: 15-20 mcg/mL Pharmacy Plan for Drug Dosing Pharmacy Plan for Drug Dosing: Pharmacy Service will continue to monitor and adjust dosing as required. TROUGH 20.4 @ 11 HOURS. HOLD DOSE AND DRAW RANDOM DOSE IN 6 HOURS. Follow-Up Labs Follow-Up Labs: Trough: Vancomycin Date/Time Labs Ordered Labs to be done on [date and time ordered]: 01/09 @ 1100 01/09/23 0639 <Electronically signed by Avi vee> Date _ Avi Barcenas Cosigner Signature (if applicable): Date CC: ~ Signed [facility] Work Phone: [phone]) 751-102912-01-2023 Progress note Author Tasha Kim [facility] January 08, 2023 6:30pm Note Date/Time January 08, 2023 9 :38am [facility] Medical Records Department [address] [place] [address] [place] [address] Progress Note - Hospitalist 01/08/23 0932 MR#: [id number] Acct: [id number] Name: SHADE IBARRAU Rep #:[id number] : 1965 57 From: Tasha Kim MD PCP: Pato Mccall, CHHAYA Rico tus:ADM IN Location: [place] [address] Reason for Visit Reason for Visit: Diagnoses Essential (primary) hypertension (01/05/23) Non-ST elevation (NSTEMI) myocardial infarction (01/05/23) Pneumonia, unspecified organism (01/05/23) Acute respiratory failure with hypoxia (01/05/23) Subjective Subjective Feeling somewhat better this AM, reports she gets some tingling in the fingers on her left hand and her feet which comes and goes has no other focal complaints, denies any rashes or injuries Objective Data Objective Data Vital Signs: Vital Signs Temp Pulse Resp BP Pulse Ox O2 Del Method O2 Flow Rate 97.9 F 62 20 H 132/67 H 98 Bi-pap 2 01/08/23 06:20 01/08/23 06:20 01/08/23 06:20 01/08/23 06:20 01/08/23 06:20 01/08/23 06:20 01/07/23 09:00 FiO2 21 01/08/23 06:20 Oxygen Flow Rate (L/min) 2 Oxygen Delivery Method Bi-pap Weight: 153.5 kg Body Mass Index (BMI) 56.2 Intake & Output: Intake and Output for Last 24 Hours 01/06/23 01/07/23 01/08/23 23:59 23:59 23:59 Intake Total 1851.77 / 2091.77 2835.83 / 3315.83 1864.17 / 1864.17 Output Total 1850 / 2300 1050 / 1050 850 / 850 Balance 1.77 / -208.23 1785.83 / 2265.83 1014.17 / 1014.17 Lab / Micro Data 01/08/23 06:20 01/08/23 06:20 Labs: Laboratory Results - last 24 hr 01/07/23 06:30: ESR 70 H, Serum Osmolality 284, B-Natriuretic Peptide 133.3 H, Vitamin B12 240, Vitamin D 25-Hydroxy 8.1, Procalcitonin 12.11 H 01/07/23 09:38: POC Glucose 294 H 01/07/23 11:17: POC Glucose 299 H 01/07/23 12:10: Sodium 128 L, Potassium 3.7, Chloride 96 L, Carbon Dioxide 23.0,Anion Gap 9, BUN 39 H, Creatinine 1.76 H, Estim Creat Clear Calc 30.97, Est GFR (MDRD) Af Amer 38 L, Est GFR (MDRD) Non-Af 31 L, BUN/Creatinine Ratio 22.2 H, Glucose 286 H, Calcium 8.1 L 01/07/23 14:24: Sodium 128 L, Potassium 4.0, Chloride 97 L, Carbon Dioxide 14.0 L, Anion Gap 17 H, BUN 31 H, Creatinine 1.78 H, Estim Creat Clear Calc 30.62, Est GFR (MDRD) Af Amer 37 L, Est GFR (MDRD) Non-Af 31 L, BUN/Creatinine Ratio 17.4, Glucose 259 H, Calcium 7.9 L 01/07/23 14:32: C-React Prot Ext Range 237.00 H, Folate 16.40, TSH 0.75, Free T41.23 01/07/23 16:00: Urine Color Yellow, Urine Clarity Sl. Cloudy, Urine pH 6.0, Ur Specific Flora 1.015, Urine Protein 30 H, Urine Glucose (UA) 100 H, Urine Ketones Negative, Urine Occult Blood 150 H, Urine Nitrite Negative, Urine Bilirubin Negative, Urine Urobilinogen Normal, Ur Leukocyte Esterase 100 H, Urine RBC 0-5 SEEN, Urine WBC 0-5 SEEN, Ur Squamous Epith Cells 0-5 SEEN, Urine Bacteria RARE, Urine Mucus 0 SEEN, Urine Osmolality 401, Ur Random Sodium 26, Urine Creatinine 71.70, Urine Potassium 22.0, Urine Chloride 14, Urine Urea Nitrogen 691 01/07/23 16:41: POC Glucose 352 H 01/07/23 17:34: Lactic Acid 1.8 01/07/23 18:50: MRSA (PCR) Negative 01/07/23 21:19: POC Glucose 265 H 01/08/23 03:15: POC Glucose 152 H 01/08/23 05:55: POC Glucose 142 H 01/08/23 06:20: WBC 10.5, RBC 3.36 L, Hgb 9.2 L, Hct 29.0 L, MCV 86.3, MCH 27.4,MCHC 31.7 L, RDW Std Deviation 41.1, RDW Coeff of Linda 13.0, Plt Count 233, MPV 9.8, Immature Gran % (Auto) 0.900, Neut % (Auto) 63.7, Lymph % (Auto) 18.8 L, Collier % (Auto) 14.4 H, Eos % (Auto) 1.6, Baso % (Auto) 0.6, Absolute Neuts (auto) 6.7, Absolute Lymphs (auto) 1.96, Nucleated RBC % 0, ESR 76 H, Sodium 134 L, Potassium 3.8, Chloride 103, Carbon Dioxide 23.0, Anion Gap 8, BUN 40 H, Creatinine 1.70 H, Estim Creat Clear Calc 32.06, Est GFR (MDRD) Af Amer 39 L, Est GFR (MDRD) Non-Af 33 L, BUN/Creatinine Ratio 23.5 H, Glucose 125 H, Calcium 8.0 L, C-React Prot Ext Range 207.00 H Micro: Microbiology 01/05/23 15:45 Urine, Random Legionella Antigen - Final 01/05/23 15:45 Urine, Random Streptococcus pneumoniae Antigen (M - Final 01/05/23 13:56 Mucosa - Nasopharyngeal Respiratory Panel (PCR) - Final Physical Exam Narrative General: Alert, no acute distress HEENT: Atraumatic, normocephalic Eyes: Anicteric, normal conjunctiva, extraocular movements grossly intact Neck: Supple Respiratory: Improving aeration, not tachypneic and no respiratory distress Cardiovascular: Regular rate and rhythm GI: Soft, nontender, nondistended Extremities: No significant pitting edema Musculoskeletal: Moving all extremities, no palpation over spine Neuro: No overt focal neurological deficits Skin: No rashes appreciated Psych: Cooperative Assessment & Plan Assessment/Plan (1) NSTEMI, initial episode of care: (2) Acute hypoxic respiratory failure: (3) Community acquired pneumonia: PLAN: Plan Patient is a 57-year-old female who presented to [facility] ED on 12/28/2022 with chest pain and worsening shortness of breath. #Febrile -Patient with temperature of 101.8 ?F, unclear etiology she is presently being treated for CAP with Rocephin and azithromycin -We will get blood cultures, Pro-Karthik, ESR, CRP -Endorse later in the afternoon that she thought maybe she had a UTI so UA and urine culture ordered -Respiratory panel and urine antigens negative on admission, had recent COVID good checked may be false positive and unclear if this would be clinically significant -We will continue present antibiotics pending culture data and clinical progress -01/08: Has not been febrile since medications have been adjusted, ESR had been 70 and up trended to 76 so roughly the same and CRP was 237 and down trended to 207 after changing antibiotics, Pro-Karthik was 12. Patient had antibiotics broadened to vancomycin and Zosyn, cultures pending #JAYDEN vs ckd Creatinine 1.44 on admit. Baseline creatinine appears to be around 0.8-0.9. Most likely prerenal etiology in setting of NSTEMI with possible pneumonia as noted above. ? Monitor daily BMP and urine output. Can expand workup if kidney function doesnot quickly improve. -01/06: Unchanged today, continue supportive care, unclear if JAYDEN or CKD as patient did have a creatinine of 1.6 09/2022 but that was newly elevated. Continue to trend -01/07: Had creatinine of 1.6 09/27/2022 and was subsequently 1.44 here, increased to 1.74 possibly secondary to heart cath, give gentle hydration and will recheck. We will also check BNP to help assess fluid level, check UA and urine culture, will also get urine lites/urine studies, can consider kidney ultrasound pending results and progress -01/08: Did improve slightly today with fluids and antibiotics #Poorly controlled type 2 diabetes with hyperglycemia Blood glucose 335 on admit. Home regimen appears to be Lantus 63 units daily, glipizide 5 mg daily, pioglitazone 30 mg daily. Previous A1c values range from 10 to 12% over the last year. ? Will start Lantus 50 units in the morning with high-dose sliding scale insulin. Adjust as needed. Repeat A1c ordered. -01/06: Continue to adjust insulin -01/07: A1c 10.4, continue to adjust insulin -01/08: Glucose only 142 this a.m., query for improved due to treating underlying infection, to avoid hypoglycemia we will decrease glargine but can reincrease as needed #Mild hyponatremia ? Sodium 131 on admit. Suspect primarily pseudohyponatremia in setting of hyperglycemia, corrected sodium of around 134. Treating diabetes as above. Monitor daily BMP. -01/06: Roughly unchanged today -01/07: Did decrease some, checking serum and urine osmolality and urine studies, patient given gentle hydration as kidney function bumped up after heartcath, check TSH and BNP -01/08: Improved today #NSTEMI Moderate to high concern for type I NSTEMI given elevated troponins on admission, known history of poorly controlled type 2 diabetes and morbid obesity, recent COVID infection. Also have concern for new onset heart failure due to recent COVID infection. Troponin trend 464 to 491 in the ED. No EKG changes noted. BNP 276. Given aspirin 325 mg in the ED and initiated on a heparin drip. ? Admit under inpatient status to PCU. Cardiology consulted. Continue heparin drip. Trend troponin. Monitor telemetry. Echo ordered. Continue home statin. -01/06: Patient for heart cath and had ostial diagonal disease but med management was recommended as well as managing hypertension, echo with EF 65% and no regional wall motion abnormalities -01/07: Continue losartan, aspirin, statin, metoprolol #Acute hypoxia, improving Does not wear oxygen at baseline. Required up to 4 L nasal cannula in the ED, was weaned to 2 L nasal cannula with oxygen saturations in the low to mid 90s. Suspect secondary to possible pneumonia as noted below plus or minus mild volumeoverload secondary to concern for cardiac dysfunction. ? Wean supplemental oxygen as able. Treating pneumonia as below and NSTEMI as above. Received 1 dose of IV Lasix in the ED with moderate urine output, can spot dose IV Lasix as needed. -01/06: O2 sats improving, will continue antibiotics. Had CTA in ED with small bilateral pleural effusions with minimally dependent lower lobe consolidation and some interlobular septal thickening with scattered ill-defined nodules whichcould be infectious process or edema and is a precautionary measure recommended follow-up CT in 6 to 8 weeks -01/07: Was tachypneic overnight but ABG demonstrated respiratory alkalosis and patient seemed to improve with improvement of anxiety, patient was ambulated anddid not require home O2 #Concern for community-acquired pneumonia, unknown organism; recent COVID infection CTA chest on admit showed small bilateral pleural effusions with small lower lobe consolidation, or lobular septal thickening throughout the right lung that may be secondary to an infectious process versus pulmonary edema. WBC count 14. Afebrile, vital signs otherwise stable. Patient reports mild shortness of breath with recent COVID infection that has significantly worsened over the pastfew days. Denies any significant cough or sputum production. ? Will empirically treat with azithromycin and ceftriaxone for now. Follow-up sputum culture, respiratory PCR panel, urine antigens. Trend CBC. -01/06: Respiratory panel negative, Legionella and strep pneumo negative. Continue present antibiotics -01/07: See above #Normocytic anemia Hemoglobin 10.3 on admit, MCV 89. Most recent hemoglobin was 11.4 in 09/2022, previous baseline was around 12-13 back in 2018. Unclear etiology, suspect mostlikely mild worsening from baseline, no bleeding noted. ? Follow-up a.m. CBC. Iron studies, vitamin B12, folate ordered. -01/06: Continue to monitor -01/07: Downtrended slightly but no evidence of blood loss, continue to trend Chronic medical conditions: ? Morbid obesity: BMI 56 on admit, lifestyle modifications encouraged. ? Anxiety/depression: Stable. Continued home citalopram, Ativan 1 mg daily as needed. ? MUNA: Reports compliance with home CPAP. CPAP ordered while inpatient. ? Asthma: Continued home albuterol as needed. ? Hypertension: Continuing medications at present DVT prophylaxis: Heparin subq CODE STATUS: Full code, verified Total clinical time spent by myself addressing the patient's medical issues, reviewing all the data, and collaborating with patient's care team: 51 minutes. Charges/Coding Visit Charges Inpatient E&M: 01659 Subs Hosp L3 01/08/23 1830 <Electronically signed by Tasha Kim MD> Cosigner Signature (if applicable): CC: ~ Signed [facility] [place] Work Phone: 1(950) 265-520612-01-2023 Progress note Author Tasha Kim [facility] January 08, 2023 6:30pm Note Date/Time January 08, 2023 9 :38am [facility] Medical Records Department [address] [place] [address] Progress Note - Hospitalist 01/08/23 0932 MR#: [id number] Acct: [id number] Name: SHADE IBARRA Rep #:[id number] : 1965 57 From: Tasha Kim MD PCP: CHHAYA Malcolm tus:ADM IN Location: [place] [address] Reason for Visit Reason for Visit: Diagnoses Essential (primary) hypertension (01/05/23) Non-ST elevation (NSTEMI) myocardial infarction (01/05/23) Pneumonia, unspecified organism (01/05/23) Acute respiratory failure with hypoxia (01/05/23) Subjective Subjective Feeling somewhat better this AM, reports she gets some tingling in the fingers on her left hand and her feet which comes and goes has no other focal complaints, denies any rashes or injuries Objective Data Objective Data Vital Signs: Vital Signs Temp Pulse Resp BP Pulse Ox O2 Del Method O2 Flow Rate 97.9 F 62 20 H 132/67 H 98 Bi-pap 2 01/08/23 06:20 01/08/23 06:20 01/08/23 06:20 01/08/23 06:20 01/08/23 06:20 01/08/23 06:20 01/07/23 09:00 FiO2 21 01/08/23 06:20 Oxygen Flow Rate (L/min) 2 Oxygen Delivery Method Bi-pap Weight: 153.5 kg Body Mass Index (BMI) 56.2 Intake & Output: Intake and Output for Last 24 Hours 01/06/23 01/07/23 01/08/23 23:59 23:59 23:59 Intake Total 1851.77 / 2091.77 2835.83 / 3315.83 1864.17 / 1864.17 Output Total 1850 / 2300 1050 / 1050 850 / 850 Balance 1.77 / -208.23 1785.83 / 2265.83 1014.17 / 1014.17 Lab / Micro Data 01/08/23 06:20 01/08/23 06:20 Labs: Laboratory Results - last 24 hr 01/07/23 06:30: ESR 70 H, Serum Osmolality 284, B-Natriuretic Peptide 133.3 H, Vitamin B12 240, Vitamin D 25-Hydroxy 8.1, Procalcitonin 12.11 H 01/07/23 09:38: POC Glucose 294 H 01/07/23 11:17: POC Glucose 299 H 01/07/23 12:10: Sodium 128 L, Potassium 3.7, Chloride 96 L, Carbon Dioxide 23.0,Anion Gap 9, BUN 39 H, Creatinine 1.76 H, Estim Creat Clear Calc 30.97, Est GFR (MDRD) Af Amer 38 L, Est GFR (MDRD) Non-Af 31 L, BUN/Creatinine Ratio 22.2 H, Glucose 286 H, Calcium 8.1 L 01/07/23 14:24: Sodium 128 L, Potassium 4.0, Chloride 97 L, Carbon Dioxide 14.0 L, Anion Gap 17 H, BUN 31 H, Creatinine 1.78 H, Estim Creat Clear Calc 30.62, Est GFR (MDRD) Af Amer 37 L, Est GFR (MDRD) Non-Af 31 L, BUN/Creatinine Ratio 17.4, Glucose 259 H, Calcium 7.9 L 01/07/23 14:32: C-React Prot Ext Range 237.00 H, Folate 16.40, TSH 0.75, Free T41.23 01/07/23 16:00: Urine Color Yellow, Urine Clarity Sl. Cloudy, Urine pH 6.0, Ur Specific Flora 1.015, Urine Protein 30 H, Urine Glucose (UA) 100 H, Urine Ketones Negative, Urine Occult Blood 150 H, Urine Nitrite Negative, Urine Bilirubin Negative, Urine Urobilinogen Normal, Ur Leukocyte Esterase 100 H, Urine RBC 0-5 SEEN, Urine WBC 0-5 SEEN, Ur Squamous Epith Cells 0-5 SEEN, Urine Bacteria RARE, Urine Mucus 0 SEEN, Urine Osmolality 401, Ur Random Sodium 26, Urine Creatinine 71.70, Urine Potassium 22.0, Urine Chloride 14, Urine Urea Nitrogen 691 01/07/23 16:41: POC Glucose 352 H 01/07/23 17:34: Lactic Acid 1.8 01/07/23 18:50: MRSA (PCR) Negative 01/07/23 21:19: POC Glucose 265 H 01/08/23 03:15: POC Glucose 152 H 01/08/23 05:55: POC Glucose 142 H 01/08/23 06:20: WBC 10.5, RBC 3.36 L, Hgb 9.2 L, Hct 29.0 L, MCV 86.3, MCH 27.4,MCHC 31.7 L, RDW Std Deviation 41.1, RDW Coeff of Linda 13.0, Plt Count 233, MPV 9.8, Immature Gran % (Auto) 0.900, Neut % (Auto) 63.7, Lymph % (Auto) 18.8 L, Collier % (Auto) 14.4 H, Eos % (Auto) 1.6, Baso % (Auto) 0.6, Absolute Neuts (auto) 6.7, Absolute Lymphs (auto) 1.96, Nucleated RBC % 0, ESR 76 H, Sodium 134 L, Potassium 3.8, Chloride 103, Carbon Dioxide 23.0, Anion Gap 8, BUN 40 H, Creatinine 1.70 H, Estim Creat Clear Calc 32.06, Est GFR (MDRD) Af Amer 39 L, Est GFR (MDRD) Non-Af 33 L, BUN/Creatinine Ratio 23.5 H, Glucose 125 H, Calcium 8.0 L, C-React Prot Ext Range 207.00 H Micro: Microbiology 01/05/23 15:45 Urine, Random Legionella Antigen - Final 01/05/23 15:45 Urine, Random Streptococcus pneumoniae Antigen (M - Final 01/05/23 13:56 Mucosa - Nasopharyngeal Respiratory Panel (PCR) - Final Physical Exam Narrative General: Alert, no acute distress HEENT: Atraumatic, normocephalic Eyes: Anicteric, normal conjunctiva, extraocular movements grossly intact Neck: Supple Respiratory: Improving aeration, not tachypneic and no respiratory distress Cardiovascular: Regular rate and rhythm GI: Soft, nontender, nondistended Extremities: No significant pitting edema Musculoskeletal: Moving all extremities, no palpation over spine Neuro: No overt focal neurological deficits Skin: No rashes appreciated Psych: Cooperative Assessment & Plan Assessment/Plan (1) NSTEMI, initial episode of care: (2) Acute hypoxic respiratory failure: (3) Community acquired pneumonia: PLAN: Plan Patient is a 57-year-old female who presented to [facility] ED on 12/28/2022 with chest pain and worsening shortness of breath. #Febrile -Patient with temperature of 101.8 ?F, unclear etiology she is presently being treated for CAP with Rocephin and azithromycin -We will get blood cultures, Pro-Karthik, ESR, CRP -Endorse later in the afternoon that she thought maybe she had a UTI so UA and urine culture ordered -Respiratory panel and urine antigens negative on admission, had recent COVID good checked may be false positive and unclear if this would be clinically significant -We will continue present antibiotics pending culture data and clinical progress -01/08: Has not been febrile since medications have been adjusted, ESR had been 70 and up trended to 76 so roughly the same and CRP was 237 and down trended to 207 after changing antibiotics, Pro-Karthik was 12. Patient had antibiotics broadened to vancomycin and Zosyn, cultures pending #JAYDEN vs ckd Creatinine 1.44 on admit. Baseline creatinine appears to be around 0.8-0.9. Most likely prerenal etiology in setting of NSTEMI with possible pneumonia as noted above. ? Monitor daily BMP and urine output. Can expand workup if kidney function doesnot quickly improve. -01/06: Unchanged today, continue supportive care, unclear if JAYDEN or CKD as patient did have a creatinine of 1.6 09/2022 but that was newly elevated. Continue to trend -01/07: Had creatinine of 1.6 09/27/2022 and was subsequently 1.44 here, increased to 1.74 possibly secondary to heart cath, give gentle hydration and will recheck. We will also check BNP to help assess fluid level, check UA and urine culture, will also get urine lites/urine studies, can consider kidney ultrasound pending results and progress -01/08: Did improve slightly today with fluids and antibiotics #Poorly controlled type 2 diabetes with hyperglycemia Blood glucose 335 on admit. Home regimen appears to be Lantus 63 units daily, glipizide 5 mg daily, pioglitazone 30 mg daily. Previous A1c values range from 10 to 12% over the last year. ? Will start Lantus 50 units in the morning with high-dose sliding scale insulin. Adjust as needed. Repeat A1c ordered. -01/06: Continue to adjust insulin -01/07: A1c 10.4, continue to adjust insulin -01/08: Glucose only 142 this a.m., query for improved due to treating underlying infection, to avoid hypoglycemia we will decrease glargine but can reincrease as needed #Mild hyponatremia ? Sodium 131 on admit. Suspect primarily pseudohyponatremia in setting of hyperglycemia, corrected sodium of around 134. Treating diabetes as above. Monitor daily BMP. -01/06: Roughly unchanged today -01/07: Did decrease some, checking serum and urine osmolality and urine studies, patient given gentle hydration as kidney function bumped up after heartcath, check TSH and BNP -01/08: Improved today #NSTEMI Moderate to high concern for type I NSTEMI given elevated troponins on admission, known history of poorly controlled type 2 diabetes and morbid obesity, recent COVID infection. Also have concern for new onset heart failure due to recent COVID infection. Troponin trend 464 to 491 in the ED. No EKG changes noted. BNP 276. Given aspirin 325 mg in the ED and initiated on a heparin drip. ? Admit under inpatient status to PCU. Cardiology consulted. Continue heparin drip. Trend troponin. Monitor telemetry. Echo ordered. Continue home statin. -01/06: Patient for heart cath and had ostial diagonal disease but med management was recommended as well as managing hypertension, echo with EF 65% and no regional wall motion abnormalities -01/07: Continue losartan, aspirin, statin, metoprolol #Acute hypoxia, improving Does not wear oxygen at baseline. Required up to 4 L nasal cannula in the ED, was weaned to 2 L nasal cannula with oxygen saturations in the low to mid 90s. Suspect secondary to possible pneumonia as noted below plus or minus mild volumeoverload secondary to concern for cardiac dysfunction. ? Wean supplemental oxygen as able. Treating pneumonia as below and NSTEMI as above. Received 1 dose of IV Lasix in the ED with moderate urine output, can spot dose IV Lasix as needed. -01/06: O2 sats improving, will continue antibiotics. Had CTA in ED with small bilateral pleural effusions with minimally dependent lower lobe consolidation and some interlobular septal thickening with scattered ill-defined nodules whichcould be infectious process or edema and is a precautionary measure recommended follow-up CT in 6 to 8 weeks -01/07: Was tachypneic overnight but ABG demonstrated respiratory alkalosis and patient seemed to improve with improvement of anxiety, patient was ambulated anddid not require home O2 #Concern for community-acquired pneumonia, unknown organism; recent COVID infection CTA chest on admit showed small bilateral pleural effusions with small lower lobe consolidation, or lobular septal thickening throughout the right lung that may be secondary to an infectious process versus pulmonary edema. WBC count 14. Afebrile, vital signs otherwise stable. Patient reports mild shortness of breath with recent COVID infection that has significantly worsened over the pastfew days. Denies any significant cough or sputum production. ? Will empirically treat with azithromycin and ceftriaxone for now. Follow-up sputum culture, respiratory PCR panel, urine antigens. Trend CBC. -01/06: Respiratory panel negative, Legionella and strep pneumo negative. Continue present antibiotics -01/07: See above #Normocytic anemia Hemoglobin 10.3 on admit, MCV 89. Most recent hemoglobin was 11.4 in 09/2022, previous baseline was around 12-13 back in 2018. Unclear etiology, suspect mostlikely mild worsening from baseline, no bleeding noted. ? Follow-up a.m. CBC. Iron studies, vitamin B12, folate ordered. -01/06: Continue to monitor -01/07: Downtrended slightly but no evidence of blood loss, continue to trend Chronic medical conditions: ? Morbid obesity: BMI 56 on admit, lifestyle modifications encouraged. ? Anxiety/depression: Stable. Continued home citalopram, Ativan 1 mg daily as needed. ? MUNA: Reports compliance with home CPAP. CPAP ordered while inpatient. ? Asthma: Continued home albuterol as needed. ? Hypertension: Continuing medications at present DVT prophylaxis: Heparin subq CODE STATUS: Full code, verified Total clinical time spent by myself addressing the patient's medical issues, reviewing all the data, and collaborating with patient's care team: 51 minutes. Charges/Coding Visit Charges Inpatient E&M: 67450 Subs Hosp L3 01/08/23 1830 <Electronically signed by Tasha Kim MD> Cosigner Signature (if applicable): CC: ~ Signed [facility] Work Phone: [phone] 449-130511-30-2023 Progress note Author Tasha Kim [facility] January 07, 2023 5:17pm Note Date/Time January 07, 2023 5:13pm [facility] Medical Records Department [address] [place] [address] Progress Note - Hospitalist 01/07/23 1708 MR#: [id number] Acct: [id number] Name: SHADE IBARRA Rep #:[id number] : 1965 57 From: Tasha Kim MD PCP: CHHAYA Malcolm tus:ADM IN Location: [place] [address] Hospitalist Note Patient had been doing well earlier today but had seemed to decline somewhat throughout the day and then spiked a temperature of 101.8. Immediately ordered more labs and cultures, Pro-Karthik, CRP, ESR elevated and kidney function had worsened during the day and patient did develop metabolic acidosis between morning and evening so fluids were started and her antibiotics were changed to vancomycin and Zosyn, lactic acid checked due to bicarb being down and anion gapbeing up and suspect this will be elevated, also suspect this is all due to an underlying infection. Respiratory status had been improving however patient later in the day had commented to physical therapy that she thought she might begetting a urinary tract infection which may be the source as she had not reported any other focal complaints aside from the improving shortness of breath. Continue fluids and broad-spectrum antibiotics and we will cycle lacticacid, again do expect this to be elevated but given patient is just now being started on fluids and antibiotics changed that should trend down with treatment 01/07/231716 <Electronically signed by Tasha Kim MD> Cosigner Signature (if applicable): CC: ~ Signed [facility] [place] Work Phone: [phone]) 492-229711-30-2023 Progress note Author Tasha Kim [facility] January 07, 2023 5:17pm Note Date/Time January 07, 2023 5:13pm [facility] Medical Records Department [address] [place] [address] Progress Note - Hospitalist 01/07/231707 MR#: [id number] Acct: [id number] Name: SHADE IBARRA Rep #:[id number] : 1965 57 From: Tasha Kim MD PCP: CHHAYA Malcolm tus:ADM IN Location: [place] [address] Hospitalist Note Patient had been doing well earlier today but had seemed to decline somewhat throughout the day and then spiked a temperature of 101.8. Immediately ordered more labs and cultures, Pro-Karthik, CRP, ESR elevated and kidney function had worsened during the day and patient did develop metabolic acidosis between morning and evening so fluids were started and her antibiotics were changed to vancomycin and Zosyn, lactic acid checked due to bicarb being down and anion gapbeing up and suspect this will be elevated, also suspect this is all due to an underlying infection. Respiratory status had been improving however patient later in the day had commented to physical therapy that she thought she might begetting a urinary tract infection which may be the source as she had not reported any other focal complaints aside from the improving shortness of breath. Continue fluids and broad-spectrum antibiotics and we will cycle lacticacid, again do expect this to be elevated but given patient is just now being started on fluids and antibiotics changed that should trend down with treatment 01/07/23 1717 <Electronically signed by Tasha Kim MD> Cosigner Signature (if applicable): CC: ~ Signed [facility] Work Phone: [phone]) 740-851211-30-2023 Progress note Author Tasha Kim [facility] January 07, 2023 3:34pm Note Date/Time January 07, 2023 3:25pm [facility] Medical Records Department [address] [place] [address] Progress Note - Hospitalist 01/07/23 1523 MR#: [id number] Acct: [id number] Name: SHADE IBARRA Rep #:[id number] : 1965 57 From: Tasha Kim MD PCP: CHHAYA Malcolm tus:ADM IN Location: [place] [address] Reason for Visit Reason for Visit: Diagnoses Essential (primary) hypertension (01/05/23) Non-ST elevation (NSTEMI) myocardial infarction (01/05/23) Pneumonia, unspecified organism (01/05/23) Acute respiratory failure with hypoxia (01/05/23) Subjective Subjective Patient very anxious and low motivation, did not endorse to me initially but later endorsed that she was concerned she had a UTI and also had urinated in herdepends and was sitting in it Objective Data Objective Data Vital Signs: Vital Signs Temp Pulse Resp BP Pulse Ox O2 Del Method O2 Flow Rate 101.8 F H 92 20 H 172/75 H 97 Room Air 2 01/07/23 15:13 01/07/23 15:13 01/07/23 15:13 01/07/23 15:13 01/07/23 15:13 01/07/23 15:13 01/07/23 09:00 FiO2 21 01/06/23 23:15 Oxygen Flow Rate (L/min) 2 Oxygen Delivery Method Room Air Weight: 153.5 kg Body Mass Index (BMI) 56.2 Intake & Output: Intake and Output for Last 24 Hours 01/05/23 01/06/23 01/07/23 23:59 23:59 23:59 Intake Total 852.33 / 852.33 1851.77 / 2091.77 1835 / 1835 Output Total 1850 / 2300 1050 / 1050 Balance 852.33 / 852.33 1.77 / -208.23 785 / 785 Lab / Micro Data 01/07/23 06:30 01/07/23 12:10 Labs: Laboratory Results - last 24 hr 01/06/23 16:53: POC Glucose 273 H 01/06/23 20:21: POC Glucose 327 H 01/07/23 02:43: POC Glucose 243 H 01/07/23 05:55: POC Glucose 219 H 01/07/23 06:30: WBC 8.8, RBC 3.31 L, Hgb 9.0 L, Hct 29.1 L, MCV 87.9, MCH 27.2, MCHC 30.9 L, RDW Std Deviation 41.7, RDW Coeff of Linda 12.8, Plt Count , MPV 10.0, Immature Gran % (Auto) 1.000 H, Neut % (Auto) 72.9 H, Lymph % (Auto) 12.3 L, Collier % (Auto) 13.2 H, Eos % (Auto) 0.3, Baso % (Auto) 0.3, Absolute Neuts (auto) 6.4, Absolute Lymphs (auto) 1.08, Nucleated RBC % 0, Platelet Estimate ADEQUATE, Sodium 129 L, Potassium 3.7, Chloride 99, Carbon Dioxide 25.0, Anion Gap 5, BUN 38 H, Creatinine 1.74 H, Estim Creat Clear Calc 31.33, Est GFR (MDRD)Af Amer 38 L, Est GFR (MDRD) Non-Af 32 L, BUN/Creatinine Ratio 21.8 H, Glucose 210 H, Calcium 7.8 L 01/07/23 12:10: Sodium 128 L, Potassium 3.7, Chloride 96 L, Carbon Dioxide 23.0,Anion Gap 9, BUN 39 H, Creatinine 1.76 H, Estim Creat Clear Calc 30.97, Est GFR (MDRD) Af Amer 38 L, Est GFR (MDRD) Non-Af 31 L, BUN/Creatinine Ratio 22.2 H, Glucose 286 H, Calcium 8.1 L Micro: Microbiology 01/05/23 15:45 Urine, Random Legionella Antigen - Final 01/05/23 15:45 Urine, Random Streptococcus pneumoniae Antigen (M - Final 01/05/23 13:56 Mucosa - Nasopharyngeal Respiratory Panel (PCR) - Final ABG Data ABG results: ABG 01/07/23 01:14 Specimen Type ART Sample Site L Radial pH 7.54 H Bicarbonate Actual 21.4 L Total CO2 22 Base Excess -1 O2 Saturation 99 O2 % 3.0 ABG pCO2 25.2 L ABG pO2 127 H Ginna Test Positive O2 Delivery Device Cannula Vent Mode Not entered Physical Exam Narrative General: Alert, anxious HEENT: Atraumatic, normocephalic Eyes: Anicteric, normal conjunctiva, extraocular movements grossly intact Neck: Supple Respiratory: Diminished bilaterally, intermittently will be somewhat tachypneic Cardiovascular: Regular rate and rhythm GI: Soft, nontender, nondistended Extremities: No significant pitting edema Musculoskeletal: Moving all extremities Neuro: No overt focal neurological deficits Skin: No rashes appreciated Psych: Cooperative Assessment & Plan Assessment/Plan (1) NSTEMI, initial episode of care: (2) Acute hypoxic respiratory failure: (3) Community acquired pneumonia: PLAN: Plan Patient is a 57-year-old female who presented to [facility] ED on 12/28/2022 with chest pain and worsening shortness of breath. #Febrile -Patient with temperature of 101.8 ?F, unclear etiology she is presently being treated for CAP with Rocephin and azithromycin -We will get blood cultures, Pro-Karthik, ESR, CRP -Endorse later in the afternoon that she thought maybe she had a UTI so UA and urine culture ordered -Respiratory panel and urine antigens negative on admission, had recent COVID good checked may be false positive and unclear if this would be clinically significant -We will continue present antibiotics pending culture data and clinical progress #NSTEMI Moderate to high concern for type I NSTEMI given elevated troponins on admission, known history of poorly controlled type 2 diabetes and morbid obesity, recent COVID infection. Also have concern for new onset heart failure due to recent COVID infection. Troponin trend 464 to 491 in the ED. No EKG changes noted. BNP 276. Given aspirin 325 mg in the ED and initiated on a heparin drip. ? Admit under inpatient status to PCU. Cardiology consulted. Continue heparin drip. Trend troponin. Monitor telemetry. Echo ordered. Continue home statin. -01/06: Patient for heart cath and had ostial diagonal disease but med management was recommended as well as managing hypertension, echo with EF 65% and no regional wall motion abnormalities -01/07: Continue losartan, aspirin, statin, metoprolol #Acute hypoxia, improving Does not wear oxygen at baseline. Required up to 4 L nasal cannula in the ED, was weaned to 2 L nasal cannula with oxygen saturations in the low to mid 90s. Suspect secondary to possible pneumonia as noted below plus or minus mild volumeoverload secondary to concern for cardiac dysfunction. ? Wean supplemental oxygen as able. Treating pneumonia as below and NSTEMI as above. Received 1 dose of IV Lasix in the ED with moderate urine output, can spot dose IV Lasix as needed. -01/06: O2 sats improving, will continue antibiotics. Had CTA in ED with small bilateral pleural effusions with minimally dependent lower lobe consolidation and some interlobular septal thickening with scattered ill-defined nodules whichcould be infectious process or edema and is a precautionary measure recommended follow-up CT in 6 to 8 weeks -01/07: Was tachypneic overnight but ABG demonstrated respiratory alkalosis and patient seemed to improve with improvement of anxiety, patient was ambulated anddid not require home O2 #Concern for community-acquired pneumonia, unknown organism; recent COVID infection CTA chest on admit showed small bilateral pleural effusions with small lower lobe consolidation, or lobular septal thickening throughout the right lung that may be secondary to an infectious process versus pulmonary edema. WBC count 14. Afebrile, vital signs otherwise stable. Patient reports mild shortness of breath with recent COVID infection that has significantly worsened over the pastfew days. Denies any significant cough or sputum production. ? Will empirically treat with azithromycin and ceftriaxone for now. Follow-up sputum culture, respiratory PCR panel, urine antigens. Trend CBC. -01/06: Respiratory panel negative, Legionella and strep pneumo negative. Continue present antibiotics -01/07: See above #JAYDEN vs ckd Creatinine 1.44 on admit. Baseline creatinine appears to be around 0.8-0.9. Most likely prerenal etiology in setting of NSTEMI with possible pneumonia as noted above. ? Monitor daily BMP and urine output. Can expand workup if kidney function doesnot quickly improve. -01/06: Unchanged today, continue supportive care, unclear if JAYDEN or CKD as patient did have a creatinine of 1.6 09/2022 but that was newly elevated. Continue to trend -01/07: Had creatinine of 1.6 09/27/2022 and was subsequently 1.44 here, increased to 1.74 possibly secondary to heart cath, give gentle hydration and will recheck. We will also check BNP to help assess fluid level, check UA and urine culture, will also get urine lites/urine studies, can consider kidney ultrasound pending results and progress #Poorly controlled type 2 diabetes with hyperglycemia Blood glucose 335 on admit. Home regimen appears to be Lantus 63 units daily, glipizide 5 mg daily, pioglitazone 30 mg daily. Previous A1c values range from 10 to 12% over the last year. ? Will start Lantus 50 units in the morning with high-dose sliding scale insulin. Adjust as needed. Repeat A1c ordered. -01/06: Continue to adjust insulin -01/07: A1c 10.4, continue to adjust insulin #Mild hyponatremia ? Sodium 131 on admit. Suspect primarily pseudohyponatremia in setting of hyperglycemia, corrected sodium of around 134. Treating diabetes as above. Monitor daily BMP. -01/06: Roughly unchanged today -01/07: Did decrease some, checking serum and urine osmolality and urine studies, patient given gentle hydration as kidney function bumped up after heartcath, check TSH and BNP #Normocytic anemia Hemoglobin 10.3 on admit, MCV 89. Most recent hemoglobin was 11.4 in 09/2022, previous baseline was around 12-13 back in 2018. Unclear etiology, suspect mostlikely mild worsening from baseline, no bleeding noted. ? Follow-up a.m. CBC. Iron studies, vitamin B12, folate ordered. -01/06: Continue to monitor -01/07: Downtrended slightly but no evidence of blood loss, continue to trend Chronic medical conditions: ? Morbid obesity: BMI 56 on admit, lifestyle modifications encouraged. ? Anxiety/depression: Stable. Continued home citalopram, Ativan 1 mg daily as needed. ? MUNA: Reports compliance with home CPAP. CPAP ordered while inpatient. ? Asthma: Continued home albuterol as needed. ? Hypertension: Continuing medications at present DVT prophylaxis: Heparin subq CODE STATUS: Full code, verified Total clinical time spent by myself addressing the patient's medical issues, reviewing all the data, and collaborating with patient's care team: 55 minutes. Charges/Coding Visit Charges Inpatient E&M: 80027 Subs Hosp L3 01/07/23 1534 <Electronically signed by Tasha Kim MD> Cosigner Signature (if applicable): CC: ~ Signed [facility] Work Phone: [phone]) 126-868911-30-2023 Progress note Author Tasha Kim [facility] January 07, 2023 3:34pm Note Date/Time January 07, 2023 3:25pm [facility] Medical Records Department [address] [place] [address] Progress Note - Hospitalist 01/07/23 1523 MR#: [id number] Acct: [id number] Name: SHADE IBARRA Rep #:[id number] : 1965 57 From: Tasha Kim MD PCP: CHHAYA Malcolm tus:ADM IN Location: [place] [address] Reason for Visit Reason for Visit: Diagnoses Essential (primary) hypertension (01/05/23) Non-ST elevation (NSTEMI) myocardial infarction (01/05/23) Pneumonia, unspecified organism (01/05/23) Acute respiratory failure with hypoxia (01/05/23) Subjective Subjective Patient very anxious and low motivation, did not endorse to me initially but later endorsed that she was concerned she had a UTI and also had urinated in herdepends and was sitting in it Objective Data Objective Data Vital Signs: Vital Signs Temp Pulse Resp BP Pulse Ox O2 Del Method O2 Flow Rate 101.8 F H 92 20 H 172/75 H 97 Room Air 2 01/07/23 15:13 01/07/23 15:13 01/07/23 15:13 01/07/23 15:13 01/07/23 15:13 01/07/23 15:13 01/07/23 09:00 FiO2 21 01/06/23 23:15 Oxygen Flow Rate (L/min) 2 Oxygen Delivery Method Room Air Weight: 153.5 kg Body Mass Index (BMI) 56.2 Intake & Output: Intake and Output for Last 24 Hours 01/05/23 01/06/23 01/07/23 23:59 23:59 23:59 Intake Total 852.33 / 852.33 1851.77 / 2091.77 1835 / 1835 Output Total 1850 / 2300 1050 / 1050 Balance 852.33 / 852.33 1.77 / -208.23 785 / 785 Lab / Micro Data 01/07/23 06:30 01/07/23 12:10 Labs: Laboratory Results - last 24 hr 01/06/23 16:53: POC Glucose 273 H 01/06/23 20:21: POC Glucose 327 H 01/07/23 02:43: POC Glucose 243 H 01/07/23 05:55: POC Glucose 219 H 01/07/23 06:30: WBC 8.8, RBC 3.31 L, Hgb 9.0 L, Hct 29.1 L, MCV 87.9, MCH 27.2, MCHC 30.9 L, RDW Std Deviation 41.7, RDW Coeff of Linda 12.8, Plt Count , MPV 10.0, Immature Gran % (Auto) 1.000 H, Neut % (Auto) 72.9 H, Lymph % (Auto) 12.3 L, Collier % (Auto) 13.2 H, Eos % (Auto) 0.3, Baso % (Auto) 0.3, Absolute Neuts (auto) 6.4, Absolute Lymphs (auto) 1.08, Nucleated RBC % 0, Platelet Estimate ADEQUATE, Sodium 129 L, Potassium 3.7, Chloride 99, Carbon Dioxide 25.0, Anion Gap 5, BUN 38 H, Creatinine 1.74 H, Estim Creat Clear Calc 31.33, Est GFR (MDRD)Af Amer 38 L, Est GFR (MDRD) Non-Af 32 L, BUN/Creatinine Ratio 21.8 H, Glucose 210 H, Calcium 7.8 L 01/07/23 12:10: Sodium 128 L, Potassium 3.7, Chloride 96 L, Carbon Dioxide 23.0,Anion Gap 9, BUN 39 H, Creatinine 1.76 H, Estim Creat Clear Calc 30.97, Est GFR (MDRD) Af Amer 38 L, Est GFR (MDRD) Non-Af 31 L, BUN/Creatinine Ratio 22.2 H, Glucose 286 H, Calcium 8.1 L Micro: Microbiology 01/05/23 15:45 Urine, Random Legionella Antigen - Final 01/05/23 15:45 Urine, Random Streptococcus pneumoniae Antigen (M - Final 01/05/23 13:56 Mucosa - Nasopharyngeal Respiratory Panel (PCR) - Final ABG Data ABG results: ABG 01/07/23 01:14 Specimen Type ART Sample Site L Radial pH 7.54 H Bicarbonate Actual 21.4 L Total CO2 22 Base Excess -1 O2 Saturation 99 O2 % 3.0 ABG pCO2 25.2 L ABG pO2 127 H Ginna Test Positive O2 Delivery Device Cannula Vent Mode Not entered Physical Exam Narrative General: Alert, anxious HEENT: Atraumatic, normocephalic Eyes: Anicteric, normal conjunctiva, extraocular movements grossly intact Neck: Supple Respiratory: Diminished bilaterally, intermittently will be somewhat tachypneic Cardiovascular: Regular rate and rhythm GI: Soft, nontender, nondistended Extremities: No significant pitting edema Musculoskeletal: Moving all extremities Neuro: No overt focal neurological deficits Skin: No rashes appreciated Psych: Cooperative Assessment & Plan Assessment/Plan (1) NSTEMI, initial episode of care: (2) Acute hypoxic respiratory failure: (3) Community acquired pneumonia: PLAN: Plan Patient is a 57-year-old female who presented to [facility] ED on 12/28/2022 with chest pain and worsening shortness of breath. #Febrile -Patient with temperature of 101.8 ?F, unclear etiology she is presently being treated for CAP with Rocephin and azithromycin -We will get blood cultures, Pro-Karthik, ESR, CRP -Endorse later in the afternoon that she thought maybe she had a UTI so UA and urine culture ordered -Respiratory panel and urine antigens negative on admission, had recent COVID good checked may be false positive and unclear if this would be clinically significant -We will continue present antibiotics pending culture data and clinical progress #NSTEMI Moderate to high concern for type I NSTEMI given elevated troponins on admission, known history of poorly controlled type 2 diabetes and morbid obesity, recent COVID infection. Also have concern for new onset heart failure due to recent COVID infection. Troponin trend 464 to 491 in the ED. No EKG changes noted. BNP 276. Given aspirin 325 mg in the ED and initiated on a heparin drip. ? Admit under inpatient status to PCU. Cardiology consulted. Continue heparin drip. Trend troponin. Monitor telemetry. Echo ordered. Continue home statin. -01/06: Patient for heart cath and had ostial diagonal disease but med management was recommended as well as managing hypertension, echo with EF 65% and no regional wall motion abnormalities -01/07: Continue losartan, aspirin, statin, metoprolol #Acute hypoxia, improving Does not wear oxygen at baseline. Required up to 4 L nasal cannula in the ED, was weaned to 2 L nasal cannula with oxygen saturations in the low to mid 90s. Suspect secondary to possible pneumonia as noted below plus or minus mild volumeoverload secondary to concern for cardiac dysfunction. ? Wean supplemental oxygen as able. Treating pneumonia as below and NSTEMI as above. Received 1 dose of IV Lasix in the ED with moderate urine output, can spot dose IV Lasix as needed. -01/06: O2 sats improving, will continue antibiotics. Had CTA in ED with small bilateral pleural effusions with minimally dependent lower lobe consolidation and some interlobular septal thickening with scattered ill-defined nodules whichcould be infectious process or edema and is a precautionary measure recommended follow-up CT in 6 to 8 weeks -01/07: Was tachypneic overnight but ABG demonstrated respiratory alkalosis and patient seemed to improve with improvement of anxiety, patient was ambulated anddid not require home O2 #Concern for community-acquired pneumonia, unknown organism; recent COVID infection CTA chest on admit showed small bilateral pleural effusions with small lower lobe consolidation, or lobular septal thickening throughout the right lung that may be secondary to an infectious process versus pulmonary edema. WBC count 14. Afebrile, vital signs otherwise stable. Patient reports mild shortness of breath with recent COVID infection that has significantly worsened over the pastfew days. Denies any significant cough or sputum production. ? Will empirically treat with azithromycin and ceftriaxone for now. Follow-up sputum culture, respiratory PCR panel, urine antigens. Trend CBC. -01/06: Respiratory panel negative, Legionella and strep pneumo negative. Continue present antibiotics -01/07: See above #JAYDEN vs ckd Creatinine 1.44 on admit. Baseline creatinine appears to be around 0.8-0.9. Most likely prerenal etiology in setting of NSTEMI with possible pneumonia as noted above. ? Monitor daily BMP and urine output. Can expand workup if kidney function doesnot quickly improve. -01/06: Unchanged today, continue supportive care, unclear if JAYDEN or CKD as patient did have a creatinine of 1.6 09/2022 but that was newly elevated. Continue to trend -01/07: Had creatinine of 1.6 09/27/2022 and was subsequently 1.44 here, increased to 1.74 possibly secondary to heart cath, give gentle hydration and will recheck. We will also check BNP to help assess fluid level, check UA and urine culture, will also get urine lites/urine studies, can consider kidney ultrasound pending results and progress #Poorly controlled type 2 diabetes with hyperglycemia Blood glucose 335 on admit. Home regimen appears to be Lantus 63 units daily, glipizide 5 mg daily, pioglitazone 30 mg daily. Previous A1c values range from 10 to 12% over the last year. ? Will start Lantus 50 units in the morning with high-dose sliding scale insulin. Adjust as needed. Repeat A1c ordered. -01/06: Continue to adjust insulin -01/07: A1c 10.4, continue to adjust insulin #Mild hyponatremia ? Sodium 131 on admit. Suspect primarily pseudohyponatremia in setting of hyperglycemia, corrected sodium of around 134. Treating diabetes as above. Monitor daily BMP. -01/06: Roughly unchanged today -01/07: Did decrease some, checking serum and urine osmolality and urine studies, patient given gentle hydration as kidney function bumped up after heartcath, check TSH and BNP #Normocytic anemia Hemoglobin 10.3 on admit, MCV 89. Most recent hemoglobin was 11.4 in 09/2022, previous baseline was around 12-13 back in 2018. Unclear etiology, suspect mostlikely mild worsening from baseline, no bleeding noted. ? Follow-up a.m. CBC. Iron studies, vitamin B12, folate ordered. -01/06: Continue to monitor -01/07: Downtrended slightly but no evidence of blood loss, continue to trend Chronic medical conditions: ? Morbid obesity: BMI 56 on admit, lifestyle modifications encouraged. ? Anxiety/depression: Stable. Continued home citalopram, Ativan 1 mg daily as needed. ? MUNA: Reports compliance with home CPAP. CPAP ordered while inpatient. ? Asthma: Continued home albuterol as needed. ? Hypertension: Continuing medications at present DVT prophylaxis: Heparin subq CODE STATUS: Full code, verified Total clinical time spent by myself addressing the patient's medical issues, reviewing all the data, and collaborating with patient's care team: 55 minutes. Charges/Coding Visit Charges Inpatient E&M: 62064 Subs Hosp L3 01/07/23 2874 <Electronically signed by Tasha Kim MD> Cosigner Signature (if applicable): CC: ~ Signed [facility] Work Phone: [phone]) 364-923711-30-2023 Progress note Author Moustapha Saini [facility] January 07, 2023 1:23am Note Date/Time January 07, 2023 1:24am [facility] Medical Records Department [address] [place] [address] Progress Note - Hospitalist 01/07/23122 MR#: [id number] Acct: [id number] Name: SHADE IBARRA Rep #:[id number] : 1965 57 From: Moustapha Saini DO PCP: CHHAYA Malcolm tus:ADM IN Location: [place] [address] Hospitalist Note Notified by nursing that patient was having fast respiratory rates. This was ongoing despite and level of oxygen, including AVAPS, nasal cannula, etc. I performed an ABG that shows a respiratory alkalosis. Appears the patient is just very anxious we will give the patient as needed lorazepam. 01/07/23122 <Electronically signed by Moustapha Saini DO> Cosigner Signature (if applicable): CC: ~ Signed [facility] Work Phone: [phone]) 543-711311-30-2023 Progress note Author Moustapha [place] [facility] January 07, 2023 1:23am Note Date/Time January 07, 2023 1:24am [facility] Medical Records Department [address] [facility] [place] [address] Progress Note - Hospitalist 01/07/23122 MR#: [id number] Acct: [id number] Name: SHADE IBARRA Rep #:[id number] : 1965 57 From: Moustapha Saini DO PCP: CHHAYA Malcolm tus:ADM IN Location: [place] [address] Hospitalist Note Notified by nursing that patient was having fast respiratory rates. This was ongoing despite and level of oxygen, including AVAPS, nasal cannula, etc. I performed an ABG that shows a respiratory alkalosis. Appears the patient is just very anxious we will give the patient as needed lorazepam. 01/07/23122 <Electronically signed by Moustapha Saini DO> Cosigner Signature (if applicable): CC: ~ Signed [facility] Work Phone: [phone]) 914-944411-29-2023 Progress note Author Tasha Kim [facility] January 06, 2023 5:20pm Note Date/Time January 06, 2023 9:17am [facility] Medical Records Department [address] [facility] [place] [address] Progress Note - Hospitalist 01/06/23914 MR#: [id number] Acct: [id number] Name: SHADE IBARRA Rep #:[id number] : 1965 57 From: Tasha Kim MD PCP: CHHAYA Malcolm tus:ADM IN Location: [place] [address] Reason for Visit Reason for Visit: Diagnoses Non-ST elevation (NSTEMI) myocardial infarction (01/05/23) Pneumonia, unspecified organism (01/05/23) Acute respiratory failure with hypoxia (01/05/23) Subjective Subjective Patient denying any chest pain, not hypoxic so was taken off of O2 but is still having some shortness of breath and cough Objective Data Objective Data Vital Signs: Vital Signs Temp Pulse Resp BP Pulse Ox O2 Del Method O2 Flow Rate 98.8 F 101 H 18 148/59 H 97 CPAP 2 01/06/23 04:00 01/06/23 08:31 01/06/23 08:31 01/06/23 04:00 01/06/23 07:24 01/06/23 08:31 01/06/23 07:24 Oxygen Flow Rate (L/min) 2 Oxygen Delivery Method CPAP Weight: 153.5 kg Body Mass Index (BMI) 56.2 Intake & Output: Intake and Output for Last 24 Hours 01/04/23 01/05/23 01/06/23 23:59 23:59 23:59 Intake Total 852.33 / 852.33 144.02 / 144.02 Output Total 650 / 650 Balance 852.33 / 852.33 -505.98 / -505.98 Lab / Micro Data 01/06/23 02:50 01/06/23 02:50 Labs: Laboratory Results - last 24 hr 01/05/23 09:45: WBC 14.8 H, RBC 3.70 L, Hgb 10.3 L, Hct 33.2 L, MCV 89.7, MCH 27.8, MCHC 31.0 L, RDW Std Deviation 41.9, RDW Coeff of Linda 12.6, Plt Count 272,MPV 9.7, Immature Gran % (Auto) 0.500, Neut % (Auto) 89.6 H, Lymph % (Auto) 2.8 L, Collier % (Auto) 6.7, Eos % (Auto) 0.1, Baso % (Auto) 0.3, Absolute Neuts (auto)13.3 H, Absolute Lymphs (auto) 0.42 L, Nucleated RBC % 0, Differential Comment SCANNED, PT 14.3, INR 1.1, APTT 31.6, Sodium 132 L, Potassium 4.6, Chloride 100,Carbon Dioxide 24.0, Anion Gap 8, BUN 31 H, Creatinine 1.44 H, Estim Creat ClearCalc 37.85, Est GFR (MDRD) Af Amer 48 L, Est GFR (MDRD) Non-Af 40 L, BUN/Creatinine Ratio 21.5 H, Glucose 335 H, Calcium 9.0, Total Bilirubin 1.10 H,AST 31, ALT 41, Alkaline Phosphatase 187 H, Troponin I High Sens 464 H*, B-Natriuretic Peptide 276.9 H, Total Protein 7.2, Albumin 2.7 L, Globulin 4.5 H, Albumin/Globulin Ratio 0.6 L 01/05/23 11:57: Troponin I High Sens 491 H* 01/05/23 15:56: POC Glucose 348 H 01/05/23 18:23: Hemoglobin A1c 10.4 H, Iron 9 L, TIBC 256, Iron Saturation 3.5 L, Ferritin 285 H, Troponin I High Sens 443 H*, Vitamin B12 306, Folate 16.60 01/05/23 20:10: APTT 39.7 H 01/05/23 20:12: POC Glucose 371 H 01/06/23 02:50: APTT 44.5 H, Sodium 131 L, Potassium 4.3, Chloride 97 L, Carbon Dioxide 22.0, Anion Gap 12, BUN 31 H, Creatinine 1.44 H, Estim Creat Clear Calc 37.85, Est GFR (MDRD) Af Amer 48 L, Est GFR (MDRD) Non-Af 40 L, BUN/Creatinine Ratio 21.5 H, Glucose 343 H, Calcium 7.8 L 01/06/23 02:51: POC Glucose 351 H 01/06/23 06:05: POC Glucose 358 H Micro: Microbiology 01/05/23 15:45 Urine, Random Legionella Antigen - Final 01/05/23 15:45 Urine, Random Streptococcus pneumoniae Antigen (M - Final 01/05/23 13:56 Mucosa - Nasopharyngeal Respiratory Panel (PCR) - Final Radiography Diagnostic Testing: Radiology Impression Chest X-Ray 01/05/23 10:00 IMPRESSION: No radiographic evidence of acute cardiopulmonary disease. Electronically Signed: Carley Adam MD at 10:33 EST , Chest CTA 01/05/23 11:14 IMPRESSION: No demonstrated pulmonary embolism or arterial dissection. Small bilateral pleural effusions associated with minimal dependent lower lobe consolidation. Interlobular septal thickening throughout the right lung associated with scattered ill-defined nodules, a nonspecific finding may be secondary to an infectious process and/or edema, as a precautionary measure recommend follow-up chest CT in 6-8 weeks. Small hiatal hernia. Atherosclerosis. Electronically Signed: Carley Adam MD at 12:20 EST , Echocardiogram 01/05/23 14:53 Interpretation Summary Normal LV size. Left ventricular systolic function is normal. The estimated ejection fraction is 65 %. Mild focal aortic valve calcification. Ordering Physician: Atul Cardozo Performed By: Lance Abreu RCS Physical Exam Narrative General: Alert, oriented, appears to not feel well HEENT: Atraumatic, normocephalic Eyes: Anicteric, normal conjunctiva, extraocular movements grossly intact Neck: Supple Respiratory: Slightly tachypneic, breath sounds diminished secondary to body habitus Cardiovascular: Regular rate GI: Soft, nontender, nondistended Extremities: No edema Musculoskeletal: Moving all extremities Neuro: No overt focal neurological deficits Skin: No rashes appreciated Psych: Cooperative Assessment & Plan Assessment/Plan (1) NSTEMI, initial episode of care: (2) Acute hypoxic respiratory failure: (3) Community acquired pneumonia: PLAN: Plan Patient is a 57-year-old female who presented to [facility] ED on 12/28/2022 with chest pain and worsening shortness of breath. 1. NSTEMI Moderate to high concern for type I NSTEMI given elevated troponins on admission, known history of poorly controlled type 2 diabetes and morbid obesity, recent COVID infection. Also have concern for new onset heart failure due to recent COVID infection. Troponin trend 464 to 491 in the ED. No EKG changes noted. BNP 276. Given aspirin 325 mg in the ED and initiated on a heparin drip. ? Admit under inpatient status to PCU. Cardiology consulted. Continue heparin drip. Trend troponin. Monitor telemetry. Echo ordered. Continue home statin. -01/06: Patient for heart cath and had ostial diagonal disease but med management was recommended as well as managing hypertension, echo with EF 65% and no regional wall motion abnormalities 2. Acute hypoxia, improving Does not wear oxygen at baseline. Required up to 4 L nasal cannula in the ED, was weaned to 2 L nasal cannula with oxygen saturations in the low to mid 90s. Suspect secondary to possible pneumonia as noted below plus or minus mild volumeoverload secondary to concern for cardiac dysfunction. ? Wean supplemental oxygen as able. Treating pneumonia as below and NSTEMI as above. Received 1 dose of IV Lasix in the ED with moderate urine output, can spot dose IV Lasix as needed. -01/06: O2 sats improving, will continue antibiotics. Had CTA in ED with small bilateral pleural effusions with minimally dependent lower lobe consolidation and some interlobular septal thickening with scattered ill-defined nodules whichcould be infectious process or edema and is a precautionary measure recommended follow-up CT in 6 to 8 weeks 3. Concern for community-acquired pneumonia, unknown organism; recent COVID infection CTA chest on admit showed small bilateral pleural effusions with small lower lobe consolidation, or lobular septal thickening throughout the right lung that may be secondary to an infectious process versus pulmonary edema. WBC count 14. Afebrile, vital signs otherwise stable. Patient reports mild shortness of breath with recent COVID infection that has significantly worsened over the pastfew days. Denies any significant cough or sputum production. ? Will empirically treat with azithromycin and ceftriaxone for now. Follow-up sputum culture, respiratory PCR panel, urine antigens. Trend CBC. -01/06: Respiratory panel negative, Legionella and strep pneumo negative. Continue present antibiotics 4. JAYDEN Creatinine 1.44 on admit. Baseline creatinine appears to be around 0.8-0.9. Most likely prerenal etiology in setting of NSTEMI with possible pneumonia as noted above. ? Monitor daily BMP and urine output. Can expand workup if kidney function doesnot quickly improve. -01/06: Unchanged today, continue supportive care, unclear if JAYDEN or CKD as patient did have a creatinine of 1.6 09/2022 but that was newly elevated. Continue to trend 5. Poorly controlled type 2 diabetes with hyperglycemia Blood glucose 335 on admit. Home regimen appears to be Lantus 63 units daily, glipizide 5 mg daily, pioglitazone 30 mg daily. Previous A1c values range from 10 to 12% over the last year. ? Will start Lantus 50 units in the morning with high-dose sliding scale insulin. Adjust as needed. Repeat A1c ordered. -01/06: Continue to adjust insulin 6. Mild hyponatremia ? Sodium 131 on admit. Suspect primarily pseudohyponatremia in setting of hyperglycemia, corrected sodium of around 134. Treating diabetes as above. Monitor daily BMP. -01/06: Roughly unchanged today 7. Normocytic anemia Hemoglobin 10.3 on admit, MCV 89. Most recent hemoglobin was 11.4 in 09/2022, previous baseline was around 12-13 back in 2018. Unclear etiology, suspect mostlikely mild worsening from baseline, no bleeding noted. ? Follow-up a.m. CBC. Iron studies, vitamin B12, folate ordered. -01/06: Continue to monitor Chronic medical conditions: ? Morbid obesity: BMI 56 on admit, lifestyle modifications encouraged. ? Anxiety/depression: Stable. Continued home citalopram, Ativan 1 mg daily as needed. ? MUNA: Reports compliance with home CPAP. CPAP ordered while inpatient. ? Asthma: Continued home albuterol as needed. ? Hypertension: Continuing medications at present DVT prophylaxis: Heparin drip CODE STATUS: Full code, verified Expected disposition: TBD. Patient lives at home with her daughter and son, is primarily chair bound/bedbound at home due to her severe obesity, daughter and son help with most everything around the house for her. She would prefer to go home on discharge if able. PT/OT/case management consulted for assistance. Total clinical time spent by myself addressing the patient's medical issues, reviewing all the data, and collaborating with patient's care team: 35 minutes. Charges/Coding Visit Charges Inpatient E&M: 39149 Subs Hosp L2 01/06/23 1720 <Electronically signed by Tasha Kim MD> Cosigner Signature (if applicable): CC: ~ Signed [facility] Work Phone: [phone] 146-672411-29-2023 Progress note Author Tasha Kim [facility] January 06, 2023 5:20pm Note Date/Time January 06, 2023 9:17am [facility] Medical Records Department [address] [place] [id number] Progress Note - Hospitalist 01/06/23914 MR#: [id number] Acct: [id number] Name: SHADE IBARRA Rep #:[id number] : 1965 57 From: Tasha Kim MD PCP: CHHAYA Malcolm tus:ADM IN Location: [place] [address] Reason for Visit Reason for Visit: Diagnoses Non-ST elevation (NSTEMI) myocardial infarction (01/05/23) Pneumonia, unspecified organism (01/05/23) Acute respiratory failure with hypoxia (01/05/23) Subjective Subjective Patient denying any chest pain, not hypoxic so was taken off of O2 but is still having some shortness of breath and cough Objective Data Objective Data Vital Signs: Vital Signs Temp Pulse Resp BP Pulse Ox O2 Del Method O2 Flow Rate 98.8 F 101 H 18 148/59 H 97 CPAP 2 01/06/23 04:00 01/06/23 08:31 01/06/23 08:31 01/06/23 04:00 01/06/23 07:24 01/06/23 08:31 01/06/23 07:24 Oxygen Flow Rate (L/min) 2 Oxygen Delivery Method CPAP Weight: 153.5 kg Body Mass Index (BMI) 56.2 Intake & Output: Intake and Output for Last 24 Hours 01/04/23 01/05/23 01/06/23 23:59 23:59 23:59 Intake Total 852.33 / 852.33 144.02 / 144.02 Output Total 650 / 650 Balance 852.33 / 852.33 -505.98 / -505.98 Lab / Micro Data 01/06/23 02:50 01/06/23 02:50 Labs: Laboratory Results - last 24 hr 01/05/23 09:45: WBC 14.8 H, RBC 3.70 L, Hgb 10.3 L, Hct 33.2 L, MCV 89.7, MCH 27.8, MCHC 31.0 L, RDW Std Deviation 41.9, RDW Coeff of Linda 12.6, Plt Count 272,MPV 9.7, Immature Gran % (Auto) 0.500, Neut % (Auto) 89.6 H, Lymph % (Auto) 2.8 L, Collier % (Auto) 6.7, Eos % (Auto) 0.1, Baso % (Auto) 0.3, Absolute Neuts (auto)13.3 H, Absolute Lymphs (auto) 0.42 L, Nucleated RBC % 0, Differential Comment SCANNED, PT 14.3, INR 1.1, APTT 31.6, Sodium 132 L, Potassium 4.6, Chloride 100,Carbon Dioxide 24.0, Anion Gap 8, BUN 31 H, Creatinine 1.44 H, Estim Creat ClearCalc 37.85, Est GFR (MDRD) Af Amer 48 L, Est GFR (MDRD) Non-Af 40 L, BUN/Creatinine Ratio 21.5 H, Glucose 335 H, Calcium 9.0, Total Bilirubin 1.10 H,AST 31, ALT 41, Alkaline Phosphatase 187 H, Troponin I High Sens 464 H*, B-Natriuretic Peptide 276.9 H, Total Protein 7.2, Albumin 2.7 L, Globulin 4.5 H, Albumin/Globulin Ratio 0.6 L 01/05/23 11:57: Troponin I High Sens 491 H* 01/05/23 15:56: POC Glucose 348 H 01/05/23 18:23: Hemoglobin A1c 10.4 H, Iron 9 L, TIBC 256, Iron Saturation 3.5 L, Ferritin 285 H, Troponin I High Sens 443 H*, Vitamin B12 306, Folate 16.60 01/05/23 20:10: APTT 39.7 H 01/05/23 20:12: POC Glucose 371 H 01/06/23 02:50: APTT 44.5 H, Sodium 131 L, Potassium 4.3, Chloride 97 L, Carbon Dioxide 22.0, Anion Gap 12, BUN 31 H, Creatinine 1.44 H, Estim Creat Clear Calc 37.85, Est GFR (MDRD) Af Amer 48 L, Est GFR (MDRD) Non-Af 40 L, BUN/Creatinine Ratio 21.5 H, Glucose 343 H, Calcium 7.8 L 01/06/23 02:51: POC Glucose 351 H 01/06/23 06:05: POC Glucose 358 H Micro: Microbiology 01/05/23 15:45 Urine, Random Legionella Antigen - Final 01/05/23 15:45 Urine, Random Streptococcus pneumoniae Antigen (M - Final 01/05/23 13:56 Mucosa - Nasopharyngeal Respiratory Panel (PCR) - Final Radiography Diagnostic Testing: Radiology Impression Chest X-Ray 01/05/23 10:00 IMPRESSION: No radiographic evidence of acute cardiopulmonary disease. Electronically Signed: Carley Adam MD at 10:33 EST , Chest CTA 01/05/23 11:14 IMPRESSION: No demonstrated pulmonary embolism or arterial dissection. Small bilateral pleural effusions associated with minimal dependent lower lobe consolidation. Interlobular septal thickening throughout the right lung associated with scattered ill-defined nodules, a nonspecific finding may be secondary to an infectious process and/or edema, as a precautionary measure recommend follow-up chest CT in 6-8 weeks. Small hiatal hernia. Atherosclerosis. Electronically Signed: Carley Adam MD at 12:20 EST , Echocardiogram 01/05/23 14:53 Interpretation Summary Normal LV size. Left ventricular systolic function is normal. The estimated ejection fraction is 65 %. Mild focal aortic valve calcification. Ordering Physician: Atul Cardozo Performed By: Lance Abreu RCS Physical Exam Narrative General: Alert, oriented, appears to not feel well HEENT: Atraumatic, normocephalic Eyes: Anicteric, normal conjunctiva, extraocular movements grossly intact Neck: Supple Respiratory: Slightly tachypneic, breath sounds diminished secondary to body habitus Cardiovascular: Regular rate GI: Soft, nontender, nondistended Extremities: No edema Musculoskeletal: Moving all extremities Neuro: No overt focal neurological deficits Skin: No rashes appreciated Psych: Cooperative Assessment & Plan Assessment/Plan (1) NSTEMI, initial episode of care: (2) Acute hypoxic respiratory failure: (3) Community acquired pneumonia: PLAN: Plan Patient is a 57-year-old female who presented to [facility] ED on 12/28/2022 with chest pain and worsening shortness of breath. 1. NSTEMI Moderate to high concern for type I NSTEMI given elevated troponins on admission, known history of poorly controlled type 2 diabetes and morbid obesity, recent COVID infection. Also have concern for new onset heart failure due to recent COVID infection. Troponin trend 464 to 491 in the ED. No EKG changes noted. BNP 276. Given aspirin 325 mg in the ED and initiated on a heparin drip. ? Admit under inpatient status to PCU. Cardiology consulted. Continue heparin drip. Trend troponin. Monitor telemetry. Echo ordered. Continue home statin. -01/06: Patient for heart cath and had ostial diagonal disease but med management was recommended as well as managing hypertension, echo with EF 65% and no regional wall motion abnormalities 2. Acute hypoxia, improving Does not wear oxygen at baseline. Required up to 4 L nasal cannula in the ED, was weaned to 2 L nasal cannula with oxygen saturations in the low to mid 90s. Suspect secondary to possible pneumonia as noted below plus or minus mild volumeoverload secondary to concern for cardiac dysfunction. ? Wean supplemental oxygen as able. Treating pneumonia as below and NSTEMI as above. Received 1 dose of IV Lasix in the ED with moderate urine output, can spot dose IV Lasix as needed. -01/06: O2 sats improving, will continue antibiotics. Had CTA in ED with small bilateral pleural effusions with minimally dependent lower lobe consolidation and some interlobular septal thickening with scattered ill-defined nodules whichcould be infectious process or edema and is a precautionary measure recommended follow-up CT in 6 to 8 weeks 3. Concern for community-acquired pneumonia, unknown organism; recent COVID infection CTA chest on admit showed small bilateral pleural effusions with small lower lobe consolidation, or lobular septal thickening throughout the right lung that may be secondary to an infectious process versus pulmonary edema. WBC count 14. Afebrile, vital signs otherwise stable. Patient reports mild shortness of breath with recent COVID infection that has significantly worsened over the pastfew days. Denies any significant cough or sputum production. ? Will empirically treat with azithromycin and ceftriaxone for now. Follow-up sputum culture, respiratory PCR panel, urine antigens. Trend CBC. -01/06: Respiratory panel negative, Legionella and strep pneumo negative. Continue present antibiotics 4. JAYDEN Creatinine 1.44 on admit. Baseline creatinine appears to be around 0.8-0.9. Most likely prerenal etiology in setting of NSTEMI with possible pneumonia as noted above. ? Monitor daily BMP and urine output. Can expand workup if kidney function doesnot quickly improve. -01/06: Unchanged today, continue supportive care, unclear if JAYDEN or CKD as patient did have a creatinine of 1.6 09/2022 but that was newly elevated. Continue to trend 5. Poorly controlled type 2 diabetes with hyperglycemia Blood glucose 335 on admit. Home regimen appears to be Lantus 63 units daily, glipizide 5 mg daily, pioglitazone 30 mg daily. Previous A1c values range from 10 to 12% over the last year. ? Will start Lantus 50 units in the morning with high-dose sliding scale insulin. Adjust as needed. Repeat A1c ordered. -01/06: Continue to adjust insulin 6. Mild hyponatremia ? Sodium 131 on admit. Suspect primarily pseudohyponatremia in setting of hyperglycemia, corrected sodium of around 134. Treating diabetes as above. Monitor daily BMP. -01/06: Roughly unchanged today 7. Normocytic anemia Hemoglobin 10.3 on admit, MCV 89. Most recent hemoglobin was 11.4 in 09/2022, previous baseline was around 12-13 back in 2018. Unclear etiology, suspect mostlikely mild worsening from baseline, no bleeding noted. ? Follow-up a.m. CBC. Iron studies, vitamin B12, folate ordered. -01/06: Continue to monitor Chronic medical conditions: ? Morbid obesity: BMI 56 on admit, lifestyle modifications encouraged. ? Anxiety/depression: Stable. Continued home citalopram, Ativan 1 mg daily as needed. ? MUNA: Reports compliance with home CPAP. CPAP ordered while inpatient. ? Asthma: Continued home albuterol as needed. ? Hypertension: Continuing medications at present DVT prophylaxis: Heparin drip CODE STATUS: Full code, verified Expected disposition: TBD. Patient lives at home with her daughter and son, is primarily chair bound/bedbound at home due to her severe obesity, daughter and son help with most everything around the house for her. She would prefer to go home on discharge if able. PT/OT/case management consulted for assistance. Total clinical time spent by myself addressing the patient's medical issues, reviewing all the data, and collaborating with patient's care team: 35 minutes. Charges/Coding Visit Charges Inpatient E&M: 72108 Subs Hosp L2 01/06/23 1720 <Electronically signed by Tasha Kim MD> Cosigner Signature (if applicable): CC: ~ Signed [facility] Work Phone: [phone] Consult note Author Kirk Ford [facility] January 06, 2023 9:19am Note Date/Time January 06, 2023 6:58am [facility] Medical Records Department [facility] [place] [address] Consultation - Cardiology 01/06/23 0655 MR#: [id number] Acct: [id number] Name: SHADE IBARRA Rep #:[id number] : 1965 57 From: Kirk Ford MD PCP: CHHAYA Malcolm tus:ADM IN Location: [place] [address] Assessment & Plan Assessment/Plan (1) NSTEMI, initial episode of care: PLAN: Patient presents with chest discomfort which is somewhat atypical. Cardiac enzymes are however noted to be abnormal. My recommendation will be to proceed with a left heart catheterization. Patient underwent a cardiac catheterization in 2018 which demonstrated normal coronary arteries. Depending on the results further recommendations will be made. Addendum: Cardiac catheterization done today demonstrates the following: Normal left main coronary artery. Left anterior descending artery with minimal disease. First diagonal vessel with ostial 60 to 70% stenosis. Left circumflex artery nondominant with mild disease. Dominant right coronary artery with no significant stenosis. Preserved left ventricular systolic function. Based on the above venographic findings we will continue with aggressive risk factor modification and medical therapy. We will institute Toprol 50 mg a day, losartan 100 mg a day, high intensity statin, and aspirin. Thank you for allowing me to participate in the care of your patient. Please don't hesitate to call if any issues arise. (2) Essential (primary) hypertension: HPI Consult Data Date of Consult: 01/06/23 HPI Narrative HPI Narrative: SHADE IBARRA, is a 57 F who presents to the emergency room with worsening shortness of breath. The patient apparently was diagnosed with COVID 2 weeks ago had mild upper respiratory symptoms. However over the last few days she hasnoticed that she has had worsening shortness of breath and more fatigue and left-sided chest discomfort which has been ongoing for the last few days. She presented to the emergency room was evaluated cardiac enzymes were obtained and were noted to be abnormal as well as natruretic peptide levels and cardiology was consulted for further evaluation and management. [facility] Medical History (Updated 01/05/23 @ 15:04 by Yara Renae) Abnormal cardiovascular stress test Anxiety Arthritis Asthma Chest pain Chronic neck and back pain CPAP (continuous positive airway pressure) dependence Depression Diabetes Diarrhea Essential (primary) hypertension Former smoker Hemorrhoids Hypertension Incontinence Knee pain Lung disease Morbid obesity Nicotine abuse Obstructive sleep apnea Paroxysmal atrial fibrillation Pericardial effusion with cardiac tamponade (~02/2014) Sleep apnea Type 2 diabetes mellitus without complications Home Medications albuterol sulfate 90 mcg/actuation aerosol inhaler 2 puff inhalation Q6H PRN shortness of breath 08/04/17 [History Last Taken Unknown] insulin glargine 100 unit/mL (3 mL) subcutaneous pen (Lantus Solostar U-100 Insulin) 63 unit subcut DAILY diabetes 08/04/17 [History Last Taken 01/04/23] lorazepam 1 mg tablet 1 mg PO DAILY PRN Anxiety 08/04/17 [History Last Taken Unknown] atorvastatin 40 mg tablet 40 mg PO DAILY cholesterol 01/05/23 [History Last Taken 01/04/23] citalopram 40 mg tablet 40 mg PO DAILY depression 01/05/23 [History Last Taken 01/04/23] glipizide 5 mg tablet, extended release 24 hr 5 mg PO DAILY blood sugar 01/05/23[History Last Taken 01/04/23] losartan 50 mg tablet 50 mg PO DAILY blood pressure 01/05/23 [History Last Taken 01/04/23] pioglitazone 30 mg tablet 30 mg PO DAILY blood sugar 01/05/23 [History Last Taken 01/04/23] Allergy/AdvReac Type Severity Reaction Status Date / Time Antihistamines - Alkylamine Allergy Shortness Verified 09/27/22 15:35 of breath sulfamethoxazole AdvReac Unknown Verified 09/27/22 15:35 trimethoprim AdvReac Unknown Verified 09/27/22 15:35 Family History Mother Myocardial infarction age 71 CAD (coronary artery disease) stents Surgical History H/O dilation of urethra History of appendectomy History of cataract surgery History of left heart catheterization (09/06/17) Hx of cholecystectomy pericardial window (02/16/14) Status post LASIK surgery of both eyes Social History Smoking Status: Former smoker ROS Constitutional Constitutional: Denies fever(s) or weight loss Eyes Eyes: Reports systems reviewed and no addt'l complaints, except as documented ENT HEENT: Reports systems reviewed and no addt'l complaints, except as documented Cardiovascular Cardiovascular: Denies chest pain at rest, chest pain with activity, dyspnea at rest, dyspnea on exertion, edema, palpitations or paroxysmal nocturnal dyspnea Respiratory/Chest Respiratory/Chest: Reports dyspnea on exertion, productive cough, shortness of breath at rest and shortness of breath with exertion Gastrointestinal Gastrointestinal: Denies change in bowel habits, nausea, vomiting or weight changes Genitourinary Genitourinary: Denies difficulty urinating Musculoskeletal Musculoskeletal: Denies joint stiffness or muscle weakness Integumentary Integumentary: Denies lesions Neurologic Neurologic: Denies dizziness or syncope Psychiatric Psychiatric: Denies anxiety Endocrine Endocrinology: Denies excessive sweating or fatigue Hematologic/Lymphatic Hematologic/Lymphatic: Denies anemia Allergic/Immunologic Allergic/Immunologic: Denies seasonal rhinorrhea Physical Exam Const alert, oriented x3 and no apparent distress General Appearance: cooperative HEENT hearing grossly normal bilaterally Head and Scalp: atraumatic Eyes EOMs intact bilaterally Neck General: normal visual inspection Chest inspection of chest normal and palpation of chest normal Resp normal respiratory effort Auscultation: clear to auscultation bilaterally Cardio regular rate, regular rhythm, S1 normal heart sound and S2 normal heart sound Jugular Venous Distention: JVD GI normal to inspection, nondistended, normoactive bowel sounds Extremity normal capillary refill and no pedal edema Peripheral Pulses: Yes pulses 2+ throughout and femoral pulses present Skin no rashes or lesions noted Neuro oriented x3 and CN's II-XII intact bilaterally Psych Appearance: grossly normal and appropriate Risk Stratification Risk Stratification Applicable: Yes Age >/= 65: No >/= 3 CAD Risk Factors (HTN, HLD, DM, family hx of CAD, or current smoker): Yes Aspirin Use in the Past 7 Days: No Severe Angina (>/= episodes in 24 hours): No EKG ST Changes >/= 0.5mm: No Positive Cardiac Marker: Yes PADMINI Risk Stratification Score: 2 PADMINI % Risk: 8% Risk Objective Data Vital Signs: Vital Signs Temp Pulse Resp BP Pulse Ox O2 Del Method O2 Flow Rate 98.8 F 95 18 148/59 H 95 CPAP 2 01/06/23 04:00 01/06/23 04:00 01/06/23 04:00 01/06/23 04:00 01/06/23 04:00 01/06/23 04:00 01/05/23 22:00 Oxygen Flow Rate (L/min) 2 Oxygen Delivery Method CPAP Weight: 338 lb 6.553 oz Body Mass Index (BMI) 56.2 Intake & Output: Intake and Output for Last 24 Hours 01/04/23 01/05/23 01/06/23 23:59 23:59 23:59 Intake Total 852.33 / 852.33 86.6 / 86.6 Output Total 650 / 650 Balance 852.33 / 852.33 -563.4 / -563.4 Lab / Micro Data 01/05/23 09:45 01/06/23 02:50 Labs: Laboratory Results - last 24 hr 01/05/23 09:45: WBC 14.8 H, RBC 3.70 L, Hgb 10.3 L, Hct 33.2 L, MCV 89.7, MCH 27.8, MCHC 31.0 L, RDW Std Deviation 41.9, RDW Coeff of Linda 12.6, Plt Count 272,MPV 9.7, Immature Gran % (Auto) 0.500, Neut % (Auto) 89.6 H, Lymph % (Auto) 2.8 L, Collier % (Auto) 6.7, Eos % (Auto) 0.1, Baso % (Auto) 0.3, Absolute Neuts (auto)13.3 H, Absolute Lymphs (auto) 0.42 L, Nucleated RBC % 0, Differential Comment SCANNED, PT 14.3, INR 1.1, APTT 31.6, Sodium 132 L, Potassium 4.6, Chloride 100,Carbon Dioxide 24.0, Anion Gap 8, BUN 31 H, Creatinine 1.44 H, Estim Creat ClearCalc 37.85, Est GFR (MDRD) Af Amer 48 L, Est GFR (MDRD) Non-Af 40 L, BUN/Creatinine Ratio 21.5 H, Glucose 335 H, Calcium 9.0, Total Bilirubin 1.10 H, AST 31, ALT 41, Alkaline Phosphatase 187 H, Troponin I High Sens 464 H*, B-Natriuretic Peptide 276.9 H, Total Protein 7.2, Albumin 2.7 L, Globulin 4.5 H, Albumin/Globulin Ratio 0.6 L 01/05/23 11:57: Troponin I High Sens 491 H* 01/05/23 15:56: POC Glucose 348 H 01/05/23 18:23: Hemoglobin A1c 10.4 H, Iron 9 L, TIBC 256, Iron Saturation 3.5 L, Ferritin 285 H, Troponin I High Sens 443 H*, Vitamin B12 306, Folate 16.60 01/05/23 20:10: APTT 39.7 H 01/05/23 20:12: POC Glucose 371 H 01/06/23 02:50: Sodium 131 L, Potassium 4.3, Chloride 97 L, Carbon Dioxide 22.0,Anion Gap 12, BUN 31 H, Creatinine 1.44 H, Estim Creat Clear Calc 37.85, Est GFR(MDRD) Af Amer 48 L, Est GFR (MDRD) Non-Af 40 L, BUN/Creatinine Ratio 21.5 H, Glucose 343 H, Calcium 7.8 L 01/06/23 02:51: POC Glucose 351 H 01/06/23 06:05: POC Glucose 358 H Micro: Microbiology 01/05/23 15:45 Urine, Random Legionella Antigen - Final 01/05/23 15:45 Urine, Random Streptococcus pneumoniae Antigen (M - Final 01/05/23 13:56 Mucosa - Nasopharyngeal Respiratory Panel (PCR) - Final Cardiology Labs/Tests 01/05/23 09:45: WBC 14.8 H, RBC 3.70 L, Hgb 10.3 L, Hct 33.2 L, MCV 89.7, MCH 27.8, MCHC 31.0 L, Plt Count 272, MPV 9.7, Immature Gran % (Auto) 0.500, Neut % (Auto) 89.6 H, Lymph % (Auto) 2.8 L, Collier % (Auto) 6.7, Eos % (Auto) 0.1, Baso %(Auto) 0.3, Absolute Neuts (auto) 13.3 H, Nucleated RBC % 0, PT 14.3, INR 1.1, APTT 31.6, Sodium 132 L, Potassium 4.6, Chloride 100, Carbon Dioxide 24.0, AnionGap 8, BUN 31 H, Creatinine 1.44 H, Est GFR (MDRD) Af Amer 48 L, Est GFR (MDRD) Non-Af 40 L, BUN/Creatinine Ratio 21.5 H, Glucose 335 H, Calcium 9.0, Total Bilirubin 1.10 H, B-Natriuretic Peptide 276.9 H 01/05/23 18:23: Hemoglobin A1c 10.4 H, Iron 9 L, TIBC 256, Iron Saturation 3.5 L, Ferritin 285 H 01/05/23 20:10: APTT 39.7 H 01/06/23 02:50: Sodium 131 L, Potassium 4.3, Chloride 97 L, Carbon Dioxide 22.0,Anion Gap 12, BUN 31 H, Creatinine 1.44 H, Est GFR (MDRD) Af Amer 48 L, Est GFR (MDRD) Non-Af 40 L, BUN/Creatinine Ratio 21.5 H, Glucose 343 H, Calcium 7.8 L Rhythm: EKG: ECHO: Stress Test: Cardiac Cath: PCI: CT Surgery: Holter monitor: EPS: PPM: CXR: Chest CT Scan: Radiography Diagnostic Testing: Radiology Impression Chest X-Ray 01/05/23 10:00 IMPRESSION: No radiographic evidence of acute cardiopulmonary disease. Electronically Signed: Carley Adam MD at 10:33 EST , Chest CTA 01/05/23 11:14 IMPRESSION: No demonstrated pulmonary embolism or arterial dissection. Small bilateral pleural effusions associated with minimal dependent lower lobe consolidation. Interlobular septal thickening throughout the right lung associated with scattered ill-defined nodules, a nonspecific finding may be secondary to an infectious process and/or edema, as a precautionary measure recommend follow-up chest CT in 6-8 weeks. Small hiatal hernia. Atherosclerosis. Electronically Signed: Carley Adam MD at 12:20 EST , Echocardiogram 01/05/23 14:53 Interpretation Summary Normal LV size. Left ventricular systolic function is normal. The estimated ejection fraction is 65 %. Mild focal aortic valve calcification. Ordering Physician: Atul Cardozo Performed By: Lance Abreu RCS 01/06/23 0919 <Electronically signed by Kirk Ford MD> Cosigner Signature (if applicable): CC: CHHAYA Mccall; Dr. Atul Cardozo DO; Dr. Varun Guzman MD~ Signed [facility] [place] Work Phone: [phone] History and physical note Author Atul Cardozo [facility] [place] January 05, 2023 10:38pm Note Date/Time January 05, 2023 1:11pm [facility] Medical Records Department [address] [place] [address] H&P Exam - Hospitalist 01/05/23 1303 MR#: [id number] Acct: [id number] Name: SHADE IBARRA Rep #:[id number] : 1965 57 From: Atul shah DO PCP: CHHAYA Malcolm tus:ADM IN Location: [place] [address] HPI - General General Date of Admission: 01/05/23 Date of Service: 01/05/23 Chief Complaint: Worsening shortness of breath HPI Narrative SHADE IBARRA, is a 57 F who presented to [facility] ED on 01/05/2023 from home with worsening shortness of breath. Patient seen at bedside, family member present. Patient laying in bed, conversing normally, no acute distress. Patient reports feeling mildly short of breath at rest currently. This has improved slightly since arriving to the ED after she was placed on supplemental oxygen. Patient states she is largely chair bound/bedbound at home. Lives with her son and daughter, who do most things around the house for her. Patient was diagnosed with COVID about 2 weeks ago. Had mild upper respiratory symptoms but otherwise did not have any significant issues initially. However, she developed worsening shortness of breath at rest over the past 2 days and has generally felt more fatigued than her normal. Patient also reports a mild to moderate left-sided chest pain that has been ongoing for the last few days. Patient has a history of MUNA, has been wearing her CPAP at night as normal and states that her shortness of breath has been improved with CPAP. She denies any recent fevers or chills. Denies any significant cough or sputum production. No other acute concerns at this time. [facility] Medical History (Updated 01/05/23 @ 15:04 by Yara Renae) Abnormal cardiovascular stress test Anxiety Arthritis Asthma Chest pain Chronic neck and back pain CPAP (continuous positive airway pressure) dependence Depression Diabetes Diarrhea Essential (primary) hypertension Former smoker Hemorrhoids Hypertension Incontinence Knee pain Lung disease Morbid obesity Nicotine abuse Obstructive sleep apnea Paroxysmal atrial fibrillation Pericardial effusion with cardiac tamponade (~02/2014) Sleep apnea Type 2 diabetes mellitus without complications Home Medications albuterol sulfate 90 mcg/actuation aerosol inhaler 2 puff inhalation Q6H PRN shortness of breath 08/04/17 [History Last Taken Unknown] insulin glargine 100 unit/mL (3 mL) subcutaneous pen (Lantus Solostar U-100 Insulin) 63 unit subcut DAILY diabetes 08/04/17 [History Last Taken 01/04/23] lorazepam 1 mg tablet 1 mg PO DAILY PRN Anxiety 08/04/17 [History Last Taken Unknown] atorvastatin 40 mg tablet 40 mg PO DAILY cholesterol 01/05/23 [History Last Taken 01/04/23] citalopram 40 mg tablet 40 mg PO DAILY depression 01/05/23 [History Last Taken 01/04/23] glipizide 5 mg tablet, extended release 24 hr 5 mg PO DAILY blood sugar 01/05/23[History Last Taken 01/04/23] losartan 50 mg tablet 50 mg PO DAILY blood pressure 01/05/23 [History Last Taken 01/04/23] pioglitazone 30 mg tablet 30 mg PO DAILY blood sugar 01/05/23 [History Last Taken 01/04/23] Allergy/AdvReac Type Severity Reaction Status Date / Time Antihistamines - Alkylamine Allergy Shortness Verified 09/27/22 15:35 of breath sulfamethoxazole AdvReac Unknown Verified 09/27/22 15:35 trimethoprim AdvReac Unknown Verified 09/27/22 15:35 Family History Mother Myocardial infarction age 71 CAD (coronary artery disease) stents Surgical History H/O dilation of urethra History of appendectomy History of cataract surgery History of left heart catheterization (09/06/17) Hx of cholecystectomy pericardial window (02/16/14) Status post LASIK surgery of both eyes Social History Smoking Status: Former smoker ROS Constitutional Constitutional: Reports fatigue; Denies change in weight, chills, fever(s) or weakness Eyes Eyes: Denies change in vision Cardiovascular Cardiovascular: Reports chest pain and orthopnea; Denies dyspnea on exertion, edema, lightheadedness, palpitations or rapid heart rate Respiratory/Chest Respiratory/Chest: Reports shortness of breath at rest; Denies cough, excessive phlegm production or wheezing Gastrointestinal Gastrointestinal: Denies abdominal pain, constipation, diarrhea, nausea or vomiting Genitourinary Genitourinary: Denies dysuria Musculoskeletal Musculoskeletal: Denies arthralgias or back pain Neurologic Neurologic: Denies confusion, dizziness, focal weakness, headache(s), numbness or paresthesias Vital Signs Vital Signs Vital Signs: 01/05/23 09:14 01/05/23 09:28 01/05/23 10:40 Temperature 97.6 F L 97.3 F L Temperature Source Temporal Temporal Pulse Rate 108 H 98 Respiratory Rate 24 H 21 H Respiratory Effort Short of Breath Labored Respiratory Pattern Tachypnea Blood Pressure 98/54 L 147/88 H Blood Pressure Mean 68 107 Pulse Ox 86 100 Oxygen Delivery Method Room Air Nasal Cannula Nasal Cannula Oxygen Flow Rate (L/min) 3.5 01/05/23 10:40 Temperature Temperature Source Pulse Rate Respiratory Rate Respiratory Effort Respiratory Pattern Blood Pressure Blood Pressure Mean Pulse Ox Oxygen Delivery Method Nasal Cannula Oxygen Flow Rate (L/min) 3.5 Weight Weight: 173.726 kg Body Mass Index (BMI) 63.7 Physical Exam Const alert, oriented x3 and no apparent distress Constitutional Narrative: Pleasant middle-age female, morbidly obese, mildly anxious appearing, otherwise laying comfortably in bed, conversing normally. General Appearance: cooperative and comfortable HEENT normocephalic, head/scalp atraumatic, hearing grossly normal bilaterally, nasal mucous membranes and turbinates normal and moist oral mucous membranes Eyes PERRL, EOMs intact bilaterally and conjunctivae normal Neck full ROM, no lymphadenopathy and supple Lymph Lymphatic: no lymphadenopathy noted Chest inspection of chest normal Resp Resp Narrative: Mildly decreased breath sounds throughout. No wheezing or crackles noted. Satting in mid 90s on 2 L nasal cannula, no increased work of breathing noted. Cardio regular rate, regular rhythm, no murmurs and peripheral pulses 2+ throughout GI normal to inspection, nondistended, normoactive bowel sounds, soft to palpation,non-tender and non-distended Back/Spine normal ROM Extremity normal to inspection and full ROM Extremity Narrative: Trace lower extremity edema. Skin no rashes or lesions noted Psych mental status grossly normal Results Lab / Micro Data 01/05/23 09:45 01/05/23 09:45 Labs: Laboratory Results - last 24 hr 01/05/23 09:45: WBC 14.8 H, RBC 3.70 L, Hgb 10.3 L, Hct 33.2 L, MCV 89.7, MCH 27.8, MCHC 31.0 L, RDW Std Deviation 41.9, RDW Coeff of Linda 12.6, Plt Count 272,MPV 9.7, Immature Gran % (Auto) 0.500, Neut % (Auto) 89.6 H, Lymph % (Auto) 2.8 L, Collier % (Auto) 6.7, Eos % (Auto) 0.1, Baso % (Auto) 0.3, Absolute Neuts (auto)13.3 H, Absolute Lymphs (auto) 0.42 L, Nucleated RBC % 0, Differential Comment SCANNED, Sodium 132 L, Potassium 4.6, Chloride 100, Carbon Dioxide 24.0, Anion Gap 8, BUN 31 H, Creatinine 1.44 H, Estim Creat Clear Calc 37.85, Est GFR (MDRD)Af Amer 48 L, Est GFR (MDRD) Non-Af 40 L, BUN/Creatinine Ratio 21.5 H, Glucose 335 H, Calcium 9.0, Total Bilirubin 1.10 H, AST 31, ALT 41, Alkaline [id number] H, Troponin I High Sens 464 H*, B-Natriuretic Peptide 276.9 H, Total Protein7.2, Albumin 2.7 L, Globulin 4.5 H, Albumin/Globulin Ratio 0.6 L 01/05/23 11:57: Troponin I High Sens 491 H* Imagaing Radiology Impression Chest X-Ray 01/05/23 10:00 IMPRESSION: No radiographic evidence of acute cardiopulmonary disease. Electronically Signed: Carley Adam MD at 10:33 EST , Chest CTA 01/05/23 11:14 IMPRESSION: No demonstrated pulmonary embolism or arterial dissection. Small bilateral pleural effusions associated with minimal dependent lower lobe consolidation. Interlobular septal thickening throughout the right lung associated with scattered ill-defined nodules, a nonspecific finding may be secondary to an infectious process and/or edema, as a precautionary measure recommend follow-up chest CT in 6-8 weeks. Small hiatal hernia. Atherosclerosis. Electronically Signed: Carley Adam MD at 12:20 EST , Assessment & Plan Assessment/Plan (1) NSTEMI, initial episode of care: (2) Acute hypoxic respiratory failure: (3) Community acquired pneumonia: PLAN: Plan Patient is a 57-year-old female who presented to [facility] ED on 12/28/2022 with chest pain and worsening shortness of breath. 1. NSTEMI Moderate to high concern for type I NSTEMI given elevated troponins on admission, known history of poorly controlled type 2 diabetes and morbid obesity, recent COVID infection. Also have concern for new onset heart failure due to recent COVID infection. Troponin trend 464 to 491 in the ED. No EKG changes noted. BNP 276. Given aspirin 325 mg in the ED and initiated on a heparin drip. ? Admit under inpatient status to PCU. Cardiology consulted. Continue heparin drip. Trend troponin. Monitor telemetry. Echo ordered. Continue home statin. 2. Acute hypoxia, improving Does not wear oxygen at baseline. Required up to 4 L nasal cannula in the ED, was weaned to 2 L nasal cannula with oxygen saturations in the low to mid 90s. Suspect secondary to possible pneumonia as noted below plus or minus mild volumeoverload secondary to concern for cardiac dysfunction. ? Wean supplemental oxygen as able. Treating pneumonia as below and NSTEMI as above. Received 1 dose of IV Lasix in the ED with moderate urine output, can spot dose IV Lasix as needed. 3. Concern for community-acquired pneumonia, unknown organism; recent COVID infection CTA chest on admit showed small bilateral pleural effusions with small lower lobe consolidation, or lobular septal thickening throughout the right lung that may be secondary to an infectious process versus pulmonary edema. WBC count 14. Afebrile, vital signs otherwise stable. Patient reports mild shortness of breath with recent COVID infection that has significantly worsened over the pastfew days. Denies any significant cough or sputum production. ? Will empirically treat with azithromycin and ceftriaxone for now. Follow-up sputum culture, respiratory PCR panel, urine antigens. Trend CBC. 4. JAYDEN Creatinine 1.44 on admit. Baseline creatinine appears to be around 0.8-0.9. Most likely prerenal etiology in setting of NSTEMI with possible pneumonia as noted above. ? Monitor daily BMP and urine output. Can expand workup if kidney function doesnot quickly improve. 5. Poorly controlled type 2 diabetes with hyperglycemia Blood glucose 335 on admit. Home regimen appears to be Lantus 63 units daily, glipizide 5 mg daily, pioglitazone 30 mg daily. Previous A1c values range from 10 to 12% over the last year. ? Will start Lantus 50 units in the morning with high-dose sliding scale insulin. Adjust as needed. Repeat A1c ordered. 6. Mild hyponatremia ? Sodium 131 on admit. Suspect primarily pseudohyponatremia in setting of hyperglycemia, corrected sodium of around 134. Treating diabetes as above. Monitor daily BMP. 7. Normocytic anemia Hemoglobin 10.3 on admit, MCV 89. Most recent hemoglobin was 11.4 in 09/2022, previous baseline was around 12-13 back in 2018. Unclear etiology, suspect mostlikely mild worsening from baseline, no bleeding noted. ? Follow-up a.m. CBC. Iron studies, vitamin B12, folate ordered. Chronic medical conditions: ? Morbid obesity: BMI 56 on admit, lifestyle modifications encouraged. ? Anxiety/depression: Stable. Continued home citalopram, Ativan 1 mg daily as needed. ? MUNA: Reports compliance with home CPAP. CPAP ordered while inpatient. ? Asthma: Continued home albuterol as needed. ? Hypertension: Holding home losartan given JAYDEN as noted above, restart as needed. DVT prophylaxis: Heparin drip CODE STATUS: Full code, verified Expected disposition: TBD. Patient lives at home with her daughter and son, is primarily chair bound/bedbound at home due to her severe obesity, daughter and son help with most everything around the house for her. She would prefer to go home on discharge if able. PT/OT/case management consulted for assistance. Total clinical time spent by myself addressing the patient's medical issues, reviewing all the data, and collaborating with patient's care team: 75 minutes. Charges/Coding Visit Charges Inpatient E&M: 58278 Init Hosp L3 01/05/232237 <Electronically signed by Atul Cardozo DO> Cosigner Signature (if applicable): CC: CHHAYA Mccall; Dr. Atul Cardozo DO~ Signed [facility] Work Phone: [phone] History and physical note Author Atul Cardozo [facility] January 05, 2023 10:38pm Note Date/Time January 05, 2023 1:11pm [facility] Medical Records Department [address] [place] [address] H&P Exam - Hospitalist 01/05/23 1303 MR#: [id number] Acct: [id number] Name: SHADE IBARRA Rep #:[id number] : 1965 57 From: Atul shah DO PCP: CHHAYA Malcolm tus:ADM IN Location: [place] [address] HPI - General General Date of Admission: 01/05/23 Date of Service: 01/05/23 Chief Complaint: Worsening shortness of breath HPI Narrative SHADE IBARRA, is a 57 F who presented to [facility] ED on 01/05/2023 from home with worsening shortness of breath. Patient seen at bedside, family member present. Patient laying in bed, conversing normally, no acute distress. Patient reports feeling mildly short of breath at rest currently. This has improved slightly since arriving to the ED after she was placed on supplemental oxygen. Patient states she is largely chair bound/bedbound at home. Lives with her son and daughter, who do most things around the house for her. Patient was diagnosed with COVID about 2 weeks ago. Had mild upper respiratory symptoms but otherwise did not have any significant issues initially. However, she developed worsening shortness of breath at rest over the past 2 days and has generally felt more fatigued than her normal. Patient also reports a mild to moderate left-sided chest pain that has been ongoing for the last few days. Patient has a history of MUNA, has been wearing her CPAP at night as normal and states that her shortness of breath has been improved with CPAP. She denies any recent fevers or chills. Denies any significant cough or sputum production. No other acute concerns at this time. [facility] Medical History (Updated 01/05/23 @ 15:04 by Yara Renae) Abnormal cardiovascular stress test Anxiety Arthritis Asthma Chest pain Chronic neck and back pain CPAP (continuous positive airway pressure) dependence Depression Diabetes Diarrhea Essential (primary) hypertension Former smoker Hemorrhoids Hypertension Incontinence Knee pain Lung disease Morbid obesity Nicotine abuse Obstructive sleep apnea Paroxysmal atrial fibrillation Pericardial effusion with cardiac tamponade (~02/2014) Sleep apnea Type 2 diabetes mellitus without complications Home Medications albuterol sulfate 90 mcg/actuation aerosol inhaler 2 puff inhalation Q6H PRN shortness of breath 08/04/17 [History Last Taken Unknown] insulin glargine 100 unit/mL (3 mL) subcutaneous pen (Lantus Solostar U-100 Insulin) 63 unit subcut DAILY diabetes 08/04/17 [History Last Taken 01/04/23] lorazepam 1 mg tablet 1 mg PO DAILY PRN Anxiety 08/04/17 [History Last Taken Unknown] atorvastatin 40 mg tablet 40 mg PO DAILY cholesterol 01/05/23 [History Last Taken 01/04/23] citalopram 40 mg tablet 40 mg PO DAILY depression 01/05/23 [History Last Taken 01/04/23] glipizide 5 mg tablet, extended release 24 hr 5 mg PO DAILY blood sugar 01/05/23[History Last Taken 01/04/23] losartan 50 mg tablet 50 mg PO DAILY blood pressure 01/05/23 [History Last Taken 01/04/23] pioglitazone 30 mg tablet 30 mg PO DAILY blood sugar 01/05/23 [History Last Taken 01/04/23] Allergy/AdvReac Type Severity Reaction Status Date / Time Antihistamines - Alkylamine Allergy Shortness Verified 09/27/22 15:35 of breath sulfamethoxazole AdvReac Unknown Verified 09/27/22 15:35 trimethoprim AdvReac Unknown Verified 09/27/22 15:35 Family History Mother Myocardial infarction age 71 CAD (coronary artery disease) stents Surgical History H/O dilation of urethra History of appendectomy History of cataract surgery History of left heart catheterization (09/06/17) Hx of cholecystectomy pericardial window (02/16/14) Status post LASIK surgery of both eyes Social History Smoking Status: Former smoker ROS Constitutional Constitutional: Reports fatigue; Denies change in weight, chills, fever(s) or weakness Eyes Eyes: Denies change in vision Cardiovascular Cardiovascular: Reports chest pain and orthopnea; Denies dyspnea on exertion, edema, lightheadedness, palpitations or rapid heart rate Respiratory/Chest Respiratory/Chest: Reports shortness of breath at rest; Denies cough, excessive phlegm production or wheezing Gastrointestinal Gastrointestinal: Denies abdominal pain, constipation, diarrhea, nausea or vomiting Genitourinary Genitourinary: Denies dysuria Musculoskeletal Musculoskeletal: Denies arthralgias or back pain Neurologic Neurologic: Denies confusion, dizziness, focal weakness, headache(s), numbness or paresthesias Vital Signs Vital Signs Vital Signs: 01/05/23 09:14 01/05/23 09:28 01/05/23 10:40 Temperature 97.6 F L 97.3 F L Temperature Source Temporal Temporal Pulse Rate 108 H 98 Respiratory Rate 24 H 21 H Respiratory Effort Short of Breath Labored Respiratory Pattern Tachypnea Blood Pressure 98/54 L 147/88 H Blood Pressure Mean 68 107 Pulse Ox 86 100 Oxygen Delivery Method Room Air Nasal Cannula Nasal Cannula Oxygen Flow Rate (L/min) 3.5 01/05/23 10:40 Temperature Temperature Source Pulse Rate Respiratory Rate Respiratory Effort Respiratory Pattern Blood Pressure Blood Pressure Mean Pulse Ox Oxygen Delivery Method Nasal Cannula Oxygen Flow Rate (L/min) 3.5 Weight Weight: 173.726 kg Body Mass Index (BMI) 63.7 Physical Exam Const alert, oriented x3 and no apparent distress Constitutional Narrative: Pleasant middle-age female, morbidly obese, mildly anxious appearing, otherwise laying comfortably in bed, conversing normally. General Appearance: cooperative and comfortable HEENT normocephalic, head/scalp atraumatic, hearing grossly normal bilaterally, nasal mucous membranes and turbinates normal and moist oral mucous membranes Eyes PERRL, EOMs intact bilaterally and conjunctivae normal Neck full ROM, no lymphadenopathy and supple Lymph Lymphatic: no lymphadenopathy noted Chest inspection of chest normal Resp Resp Narrative: Mildly decreased breath sounds throughout. No wheezing or crackles noted. Satting in mid 90s on 2 L nasal cannula, no increased work of breathing noted. Cardio regular rate, regular rhythm, no murmurs and peripheral pulses 2+ throughout GI normal to inspection, nondistended, normoactive bowel sounds, soft to palpation,non-tender and non-distended Back/Spine normal ROM Extremity normal to inspection and full ROM Extremity Narrative: Trace lower extremity edema. Skin no rashes or lesions noted Psych mental status grossly normal Results Lab / Micro Data 01/05/23 09:45 01/05/23 09:45 Labs: Laboratory Results - last 24 hr 01/05/23 09:45: WBC 14.8 H, RBC 3.70 L, Hgb 10.3 L, Hct 33.2 L, MCV 89.7, MCH 27.8, MCHC 31.0 L, RDW Std Deviation 41.9, RDW Coeff of Linda 12.6, Plt Count 272,MPV 9.7, Immature Gran % (Auto) 0.500, Neut % (Auto) 89.6 H, Lymph % (Auto) 2.8 L, Collier % (Auto) 6.7, Eos % (Auto) 0.1, Baso % (Auto) 0.3, Absolute Neuts (auto)13.3 H, Absolute Lymphs (auto) 0.42 L, Nucleated RBC % 0, Differential Comment SCANNED, Sodium 132 L, Potassium 4.6, Chloride 100, Carbon Dioxide 24.0, Anion Gap 8, BUN 31 H, Creatinine 1.44 H, Estim Creat Clear Calc 37.85, Est GFR (MDRD)Af Amer 48 L, Est GFR (MDRD) Non-Af 40 L, BUN/Creatinine Ratio 21.5 H, Glucose 335 H, Calcium 9.0, Total Bilirubin 1.10 H, AST 31, ALT 41, Alkaline [id number] H, Troponin I High Sens 464 H*, B-Natriuretic Peptide 276.9 H, Total Protein7.2, Albumin 2.7 L, Globulin 4.5 H, Albumin/Globulin Ratio 0.6 L 01/05/23 11:57: Troponin I High Sens 491 H* Imagaing Radiology Impression Chest X-Ray 01/05/23 10:00 IMPRESSION: No radiographic evidence of acute cardiopulmonary disease. Electronically Signed: Carley Adam MD at 10:33 EST , Chest CTA 01/05/23 11:14 IMPRESSION: No demonstrated pulmonary embolism or arterial dissection. Small bilateral pleural effusions associated with minimal dependent lower lobe consolidation. Interlobular septal thickening throughout the right lung associated with scattered ill-defined nodules, a nonspecific finding may be secondary to an infectious process and/or edema, as a precautionary measure recommend follow-up chest CT in 6-8 weeks. Small hiatal hernia. Atherosclerosis. Electronically Signed: Carley Adam MD at 12:20 EST , Assessment & Plan Assessment/Plan (1) NSTEMI, initial episode of care: (2) Acute hypoxic respiratory failure: (3) Community acquired pneumonia: PLAN: Plan Patient is a 57-year-old female who presented to [facility] ED on 12/28/2022 with chest pain and worsening shortness of breath. 1. NSTEMI Moderate to high concern for type I NSTEMI given elevated troponins on admission, known history of poorly controlled type 2 diabetes and morbid obesity, recent COVID infection. Also have concern for new onset heart failure due to recent COVID infection. Troponin trend 464 to 491 in the ED. No EKG changes noted. BNP 276. Given aspirin 325 mg in the ED and initiated on a heparin drip. ? Admit under inpatient status to PCU. Cardiology consulted. Continue heparin drip. Trend troponin. Monitor telemetry. Echo ordered. Continue home statin. 2. Acute hypoxia, improving Does not wear oxygen at baseline. Required up to 4 L nasal cannula in the ED, was weaned to 2 L nasal cannula with oxygen saturations in the low to mid 90s. Suspect secondary to possible pneumonia as noted below plus or minus mild volumeoverload secondary to concern for cardiac dysfunction. ? Wean supplemental oxygen as able. Treating pneumonia as below and NSTEMI as above. Received 1 dose of IV Lasix in the ED with moderate urine output, can spot dose IV Lasix as needed. 3. Concern for community-acquired pneumonia, unknown organism; recent COVID infection CTA chest on admit showed small bilateral pleural effusions with small lower lobe consolidation, or lobular septal thickening throughout the right lung that may be secondary to an infectious process versus pulmonary edema. WBC count 14. Afebrile, vital signs otherwise stable. Patient reports mild shortness of breath with recent COVID infection that has significantly worsened over the pastfew days. Denies any significant cough or sputum production. ? Will empirically treat with azithromycin and ceftriaxone for now. Follow-up sputum culture, respiratory PCR panel, urine antigens. Trend CBC. 4. JAYDEN Creatinine 1.44 on admit. Baseline creatinine appears to be around 0.8-0.9. Most likely prerenal etiology in setting of NSTEMI with possible pneumonia as noted above. ? Monitor daily BMP and urine output. Can expand workup if kidney function doesnot quickly improve. 5. Poorly controlled type 2 diabetes with hyperglycemia Blood glucose 335 on admit. Home regimen appears to be Lantus 63 units daily, glipizide 5 mg daily, pioglitazone 30 mg daily. Previous A1c values range from 10 to 12% over the last year. ? Will start Lantus 50 units in the morning with high-dose sliding scale insulin. Adjust as needed. Repeat A1c ordered. 6. Mild hyponatremia ? Sodium 131 on admit. Suspect primarily pseudohyponatremia in setting of hyperglycemia, corrected sodium of around 134. Treating diabetes as above. Monitor daily BMP. 7. Normocytic anemia Hemoglobin 10.3 on admit, MCV 89. Most recent hemoglobin was 11.4 in 09/2022, previous baseline was around 12-13 back in 2018. Unclear etiology, suspect mostlikely mild worsening from baseline, no bleeding noted. ? Follow-up a.m. CBC. Iron studies, vitamin B12, folate ordered. Chronic medical conditions: ? Morbid obesity: BMI 56 on admit, lifestyle modifications encouraged. ? Anxiety/depression: Stable. Continued home citalopram, Ativan 1 mg daily as needed. ? MUNA: Reports compliance with home CPAP. CPAP ordered while inpatient. ? Asthma: Continued home albuterol as needed. ? Hypertension: Holding home losartan given JAYDEN as noted above, restart as needed. DVT prophylaxis: Heparin drip CODE STATUS: Full code, verified Expected disposition: TBD. Patient lives at home with her daughter and son, is primarily chair bound/bedbound at home due to her severe obesity, daughter and son help with most everything around the house for her. She would prefer to go home on discharge if able. PT/OT/case management consulted for assistance. Total clinical time spent by myself addressing the patient's medical issues, reviewing all the data, and collaborating with patient's care team: 75 minutes. Charges/Coding Visit Charges Inpatient E&M: 10464 Init Hosp L3 01/05/232237 <Electronically signed by Atul Cardozo DO> Cosigner Signature (if applicable): CC: CHHAYA Mccall; Dr. Atul Cardozo DO~ Signed [facility] Work Phone: 1(631) 398-430011-28-2023 Discharge summary Author Harjit [place] [facility] January 05, 2023 2:54pm Note Date/Time January 05, 2023 9:38am [facility] Medical Records Department [address] [place] [id number] Emergency Department Summary 01/05/23 MR#: [id number] Acct: [id number] Name: SHADE IBARRA Rep #:[id number] : 1965 57 From: Harjit Ford PCP: CHHAYA Malcolm Sta tus:ADM IN Location: [place] [address] HPI History of Present Illness Chief Complaint: Shortness of Breath Informant: patient and friend Narrative Narrative: 57-year-old female presenting to the emergency room with dyspnea. Patient has ahistory of paroxysmal atrial fibrillation, asthma, diabetes, hypertension, morbid obesity. She tells me that 2 weeks ago she had COVID. She states that beginning yesterday she is felt significantly short of breath. No significant cough. Since yesterday she has had a left chest pressure that is been constant. She denies any leg swelling. No history of DVT PE. She does not wear home oxygen. [facility] Medical History (Updated 01/05/23 @ 13:[address] Harjit Vee DO) Abnormal cardiovascular stress test Arthritis Asthma Chest pain Chronic neck and back pain Depression Diarrhea Essential (primary) hypertension Hemorrhoids Incontinence Knee pain Lung disease Morbid obesity Nicotine abuse Obstructive sleep apnea Paroxysmal atrial fibrillation Pericardial effusion with cardiac tamponade (~02/2014) Type 2 diabetes mellitus without complications Home Medications lisinopril 40 mg tablet 40 mg PO DAILY blood pressure 08/03/17 [History Last Taken 01/04/23] albuterol sulfate 90 mcg/actuation aerosol inhaler 2 puff inhalation Q6H PRN Anxiety 08/04/17 [History Last Taken Unknown] insulin glargine 100 unit/mL (3 mL) subcutaneous pen (Lantus Solostar U-100 Insulin) 63 unit subcut DAILY diabetes 08/04/17 [History Last Taken 01/04/23] lorazepam 1 mg tablet 1 mg PO DAILY PRN Anxiety 08/04/17 [History Last Taken Unknown] atorvastatin 40 mg tablet 40 mg PO DAILY cholesterol 01/05/23 [History Last Taken 01/04/23] citalopram 40 mg tablet 40 mg PO DAILY depression 01/05/23 [History Last Taken 01/04/23] glipizide 5 mg tablet, extended release 24 hr 5 mg PO DAILY blood sugar 01/05/23[History Last Taken 01/04/23] losartan 50 mg tablet 50 mg PO DAILY blood pressure 01/05/23 [History Last Taken 01/04/23] pioglitazone 30 mg tablet 30 mg PO DAILY blood sugar 01/05/23 [History Last Taken 01/04/23] Allergy/AdvReac Type Severity Reaction Status Date / Time Antihistamines - Alkylamine Allergy Shortness Verified 09/27/22 15:35 of breath sulfamethoxazole AdvReac Unknown Verified 09/27/22 15:35 trimethoprim AdvReac Unknown Verified 09/27/22 15:35 Family History Mother Myocardial infarction age 71 CAD (coronary artery disease) stents Surgical History H/O dilation of urethra History of appendectomy History of cataract surgery History of left heart catheterization (09/06/17) Hx of cholecystectomy pericardial window (02/16/14) Status post LASIK surgery of both eyes Social History Smoking Status: Former smoker ROS ROS ED Constitutional Constitutional ED: Denies chills, fever(s) or weight loss Eyes Eyes: Denies change in vision or diplopia ENT ENT ED: Denies ear pain, rhinorrhea or sore throat Cardiovascular Cardiovascular: Reports chest pain; Denies orthopnea, palpitations or racing heartbeat Respiratory/Chest Respiratory/Chest: Reports dyspnea and dyspnea on exertion; Denies cough or orthopnea Gastrointestinal Gastrointestinal: Denies abdominal pain, diarrhea, nausea or vomiting Genitourinary Genitourinary ED: Denies dysuria, hematuria or urinary frequency Musculoskeletal Musculoskeletal: Reports back pain; Denies arthralgias or myalgias Integumentary Denies abscess or rash Neurologic Neurologic: Denies headache(s) or weakness Psychiatric Psychiatric: Denies anxiety, depression, suicidal ideation or suicidal thoughts Endocrine Endocrinology: Denies polydipsia, polyphagia or polyuria Allergic/Immunologic Allergic/Immunologic ED: Denies mouth swelling, tongue swelling or urticaria EXAM Physical Exam Const Vital Signs: 01/05/23 09:14 01/05/23 09:28 01/05/23 10:40 Temperature 97.6 F L 97.3 F L Temperature Source Temporal Temporal Pulse Rate 108 H 98 Respiratory Rate 24 H 21 H Respiratory Effort Short of Breath Labored Respiratory Pattern Tachypnea Blood Pressure 98/54 L 147/88 H Blood Pressure Mean 68 107 Pulse Ox 86 100 Oxygen Delivery Method Room Air Nasal Cannula Nasal Cannula Oxygen Flow Rate (L/min) 3.5 01/05/23 10:40 Temperature Temperature Source Pulse Rate Respiratory Rate Respiratory Effort Respiratory Pattern Blood Pressure Blood Pressure Mean Pulse Ox Oxygen Delivery Method Nasal Cannula Oxygen Flow Rate (L/min) 3.5 Positive well nourished, well developed and obese General Appearance ED: well developed Nutritional Appearance: obese HEENT Reports normocephalic, head/scalp atraumatic and moist mucous membranes Eyes PERRL and EOMs intact bilaterally Neck no lymphadenopathy, supple and no JVD Resp normal respiratory effort and clear to auscultation bilaterally Cardio regular rate, regular rhythm and no murmurs Rate: tachycardic GI normal to inspection, nondistended, normoactive bowel sounds and non-tender Palpation: soft Back/Spine no CVA tenderness and normal ROM Extremity normal to inspection General Extremety ED: Negative for edema General Extremity: Negative for edema Neuro oriented x3 and CN's II-XII intact bilaterally Sensorium / Orientation: alert Motor Exam: strength 5/5 throughout Psych mental status grossly normal Mood & Affect: Negative for depressed or tearful Skin no rashes or lesions noted and no wounds MDM MDM MDM Narrative Medical decision making narrative: White count elevated at 14.8 with hemoglobin 10.3. Platelet count of 272. BUN is 31 with a creatinine 1.44. Troponin 1 elevated 464 troponin 03/14/1990. 2 EKGsdo not show any significant change between the 2 of them or from prior EKG datedAugust 2022. My independent interpretation of the chest x-ray is no acute process. CTA of the chest does not demonstrate any pulmonary embolism. Bilateral pleural effusions were noted. No large pericardial effusion was noted. Please see radiology read for further details. Patient began to have some jaw pain and therefore a second EKG was ordered. Again this did not show any significant change. She has received aspirin. Given the elevated white count and her dyspnea and recent COVID infection cannotrule out the possibility of a pneumonia causing cardiac strain. However I cannot rule out a primary cardiac cause given her chest pain and the elevated troponins. We will admit the patient in the hospital. We have administered Rocephin and azithromycin. I will speak with the hospitalist regarding admission. History & Record Review Discussion w/independent historian: Patient and Friend Additional record(s) reviewed:: Prior labs Lab Data Attestation: I reviewed the patient's lab results. Labs: Laboratory Results - last 24 hr 01/05/23 01/05/23 09:45 11:57 WBC 14.8 H RBC 3.70 L Hgb 10.3 L Hct 33.2 L MCV 89.7 MCH 27.8 MCHC 31.0 L RDW Std Deviation 41.9 RDW Coeff of Linda 12.6 Plt Count 272 MPV 9.7 Immature Gran % (Auto) 0.500 Neut % (Auto) 89.6 H Lymph % (Auto) 2.8 L Collier % (Auto) 6.7 Eos % (Auto) 0.1 Baso % (Auto) 0.3 Absolute Neuts (auto) 13.3 H Absolute Lymphs (auto) 0.42 L Nucleated RBC % 0 Differential Comment SCANNED Sodium 132 L Potassium 4.6 Chloride 100 Carbon Dioxide 24.0 Anion Gap 8 BUN 31 H Creatinine 1.44 H Estim Creat Clear Calc 37.85 Est GFR (MDRD) Af Amer 48 L Est GFR (MDRD) Non-Af 40 L BUN/Creatinine Ratio 21.5 H Glucose 335 H Calcium 9.0 Total Bilirubin 1.10 H AST 31 ALT 41 Alkaline Phosphatase 187 H Troponin I High Sens 464 H* 491 H* B-Natriuretic Peptide 276.9 H Total Protein 7.2 Albumin 2.7 L Globulin 4.5 H Albumin/Globulin Ratio 0.6 L Radiography Diagnostic Testing: Clinical Impression(s) from Imaging Studies Chest X-Ray 01/05/23 10:00 IMPRESSION: No radiographic evidence of acute cardiopulmonary disease. Electronically Signed: Carley Adam MD at 10:33 EST Reading Location ID and State: [facility] / [place] Tel , Service support , Chest CTA 01/05/23 11:14 IMPRESSION: No demonstrated pulmonary embolism or arterial dissection. Small bilateral pleural effusions associated with minimal dependent lower lobe consolidation. Interlobular septal thickening throughout the right lung associated with scattered ill-defined nodules, a nonspecific finding may be secondary to an infectious process and/or edema, as a precautionary measure recommend follow-up chest CT in 6-8 weeks. Small hiatal hernia. Atherosclerosis. Electronically Signed: Carley Adam MD at 12:20 EST , EKG Initial EKG: Attestation: I personally reviewed and interpreted this EKG as follows: Comments: Normal sinus rhythm with a ventricular rate of 97 bpm. No significant features of ACS noted. Prior EKG tracings: available for review Prior: Unchanged Discharge Plan Dx/Rx/DC Orders Clinical Impression: Elevated brain natriuretic peptide (BNP) level, Acute hypoxic respiratory failure, Morbid obesity, Acute dyspnea, Elevated troponin, Bilateral pleural effusion, Chest pain Disposition Disposition: Acute Care Hospital [facility] What to do if you have Problems For any increased pain, shortness of breath, bleeding, nausea or vomiting, chestpain, or any unexpected problems, contact your Primary Care Provider. Call [facility] ([phone]) or report to the closest Emergency Room. Call 911 if necessary. 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 05, 2023 chronic Essential (primary) hypertension chronic Paroxysmal atrial fibrillation chronic Pericardial effusion with cardiac tamponade 2014 resolved Anemia acute Dyspnea on exertion acute 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 05, 2023 chronic Essential (primary) hypertension chronic Paroxysmal atrial fibrillation chronic Pericardial effusion with cardiac tamponade 2014 resolved [facility] Work Phone: 1(261) 775-610108-20-2023 Discharge summary Author Issac Jose [facility] September 27, 2022 4:43pm Note Date/Time September 27, 2022 3: 48pm [facility] Medical Records Department [address] [place] [id number] Emergency Department Summary 09/27/22 MR#: [id number] Acct: [id number] Name: SHADE IBARRA Rep #:[id number] : 1965 57 From: Issac Jose MD PCP: CHHAYA Malcolm tus:REG ER Location: ED HPI History of Present Illness Chief Complaint: Anxiety Narrative Narrative: Patient presents with an episode of feeling lightheaded, some nausea and felt like she was going to pass out. She was breathing fast and had tingling in her fingers and toes. This seems to have subsided. Apparently she did not eat or drink much yesterday she felt weak, she felt better today and went to work. Cara have a history of anxiety and depression, she does also have a history of of pericardial effusion with history of cardiac tamponade however she has a pericardial window. She has no fevers or chills. No headache. She did not fall. There is no vertiginous symptoms and she does not feel off balance. [facility] Medical History (Updated 09/27/22 @ 16:[address] Issac Jose MD) Abnormal cardiovascular stress test Arthritis Asthma Chest pain Chronic neck and back pain Depression Diarrhea Essential (primary) hypertension Hemorrhoids Incontinence Knee pain Lung disease Morbid obesity Nicotine abuse Obstructive sleep apnea Paroxysmal atrial fibrillation Pericardial effusion with cardiac tamponade (~02/2014) Type 2 diabetes mellitus without complications Home Medications aspirin 81 mg tablet,delayed release (Adult Aspirin Regimen) 81 mg PO QDAY 08/03/17 [History Last Taken 09/06/17] lisinopril 40 mg tablet 40 mg PO QDAY 08/03/17 [History Last Taken 09/06/17] albuterol sulfate 90 mcg/actuation aerosol inhaler 2 puff inhalation Q6H PRN Anxiety 08/04/17 [History Last Taken Unknown] citalopram 20 mg tablet 40 mg PO QDAY 08/04/17 [History Last Taken Unknown] fluticasone propionate 50 mcg/actuation blister powder for inhalation (Flovent Diskus) 1 inh inhalation QDAY 08/04/17 [History Last Taken Unknown] insulin aspart U-100 100 unit/mL (3 mL) subcutaneous pen (Novolog FlexPen U-100 Insulin aspart) 26 unit subcut TID 08/04/17 [History Last Taken Unknown] insulin glargine 100 unit/mL (3 mL) subcutaneous pen (Lantus Solostar U-100 Insulin) 80 unit subcut QDAY 08/04/17 [History Last Taken Unknown] lorazepam 1 mg tablet 1 mg PO QDAY PRN Anxiety 08/04/17 [History Last Taken Unknown] clopidogrel 75 mg tablet (Plavix) 75 mg PO QDAY #30 tabs 08/30/17 [Rx Last Taken 09/06/17] Allergy/AdvReac Type Severity Reaction Status Date / Time Antihistamines - Alkylamine Allergy Shortness Verified 09/27/22 15:35 of breath sulfamethoxazole AdvReac Unknown Verified 09/27/22 15:35 trimethoprim AdvReac Unknown Verified 09/27/22 15:35 Family History Mother Myocardial infarction age 71 CAD (coronary artery disease) stents Surgical History H/O dilation of urethra History of appendectomy History of cataract surgery History of left heart catheterization (09/06/17) Hx of cholecystectomy pericardial window (02/16/14) Status post LASIK surgery of both eyes Social History Smoking Status: Former smoker ROS ROS ED ROS Narrative Past medical history: Reviewed Medications: Reviewed Social history: Noncontributory Review of systems: All systems negative except as indicated General: No fever. Lightheadedness as in HPI Eyes: No visual changes ENT: No upper airway congestion, normal voice Neck: No neck pain Cardiovascular: No chest pain Respiratory: No shortness of breath or cough Gastrointestinal: No abdominal pain, nausea vomiting or diarrhea Musculoskeletal: Denies myalgias no difficulty with ambulation Skin: No rash Neurological: No memory loss, confusion or any focal weakness EXAM Physical Exam Narrative Exam Narrative: Physical exam General: Well nourished, Well developed, No Acute Distress Head: Normocephalic, Atraumatic Eyes: Conjunctiva not pale ENT: Dry mucous membranes Neck: Supple, Nontender, No lymphadenopathy Cardiovascular: Regular rate, Regular rhythm Respiratory: No distress, CTA bilaterally Abdomen: Soft, Nontender, Nondistended Back: Nontender, Normal Inspection. Negative for: CVA tenderness Extremities: Nontender, No edema Skin: Normal color, No rash Neurological: Alert, Normal Strength, Normal Sensation Const Vital Signs: 09/27/22 15:33 Temperature 98 F Temperature Source Temporal Pulse Rate 94 Respiratory Rate 15 Blood Pressure 150/120 H Blood Pressure Mean 130 Pulse Ox 95 MDM MDM MDM Narrative Medical decision making narrative: EKG: Sinus rhythm with a rate of 92. Normal AR interval. QTc is prolonged at 489. No ischemic changes. Interpreted by emergency doctor. Telemetry: Sinus rhythm with a rate in the 90s without ectopy. Patient's initial blood pressure was quite elevated however this improved significantly. She is found to be hyperglycemic and has a very slight JAYDEN. This is likely secondary to the blood sugar as well as her not drinking much water at all yesterday. Since first seeing her she has developed a left eye floater which she has had in the past. I will follow-up with ophthalmology. I do not believe stat ophtho consult is needed, she has no vision loss she does not feel like the curtain is closing. Otherwise she needs her blood sugar control. She knows how to do this I talked to her about it. She is quite dehydrated and I considered admission however I believe if she gets 2 L of fluids and she goes home and drinks water she should be improving on her own. If anything changes she is to return she understands this. I talked to family member who is also in the room and gave me history. Lab Data Labs: Laboratory Results - last 24 hr 09/27/22 15:52 WBC 13.3 H RBC 4.01 L Hgb 11.4 L Hct 35.6 L MCV 88.8 MCH 28.4 MCHC 32.0 RDW Std Deviation 41.9 RDW Coeff of Linda 12.8 Plt Count 394 MPV 9.6 Immature Gran % (Auto) 0.400 Neut % (Auto) 75.1 H Lymph % (Auto) 16.8 L Collier % (Auto) 6.3 Eos % (Auto) 0.9 Baso % (Auto) 0.5 Absolute Neuts (auto) 10.0 H Absolute Lymphs (auto) 2.24 Nucleated RBC % 0 Sodium 131 L Potassium 4.2 Chloride 98 Carbon Dioxide 27.0 Anion Gap 6 BUN 22 H Creatinine 1.60 H Estim Creat Clear Calc 34.07 Est GFR (MDRD) Af Amer 42 L Est GFR (MDRD) Non-Af 35 L BUN/Creatinine Ratio 13.8 Glucose 475 H* Calcium 8.4 L Total Bilirubin 0.60 AST 15 ALT 22 Alkaline Phosphatase 128 H Troponin I High Sens 26 Total Protein 6.6 Albumin 2.9 L Globulin 3.7 Albumin/Globulin Ratio 0.8 L Discharge Plan Triage Chief Complaint: Anxiety ED Provider: Issac Jose Dx/Rx/DC Orders Clinical Impression: Acute dehydration, Morbid obesity, Essential (primary) hypertension, JAYDEN (acutekidney injury), Acute hyperglycemia, Near syncope, Vitreous floaters of left eye Instructions: Blood Sugar Check Steps, ED Diabetic Hyperglycemia, ED Dehydration (Adult) Prescriptions: No Action insulin glargine [Lantus Solostar U-100 Insulin] 100 unit/mL (3 mL) insulin pen 80 unit SC QDAY insulin aspart U-100 [Novolog FlexPen U-100 Insulin] 100 unit/mL insulin pen 26 unit SC TID lorazepam 1 mg tablet 1 mg PO QDAY PRN (Reason: Anxiety) fluticasone propionate [Flovent Diskus] 50 mcg/actuation blister with device 1 inh INHALATION QDAY albuterol sulfate 90 mcg/actuation HFA aerosol inhaler 2 puff INHALATION Q6H PRN (Reason: Anxiety) aspirin [Adult Aspirin Regimen] 81 mg tablet,delayed release (DR/EC) 81 mg PO QDAY lisinopril 40 mg tablet 40 mg PO QDAY citalopram 20 mg tablet 40 mg PO QDAY clopidogrel [Plavix] 75 mg tablet 75 mg PO QDAY Qty: 30 1RF Primary Care Provider: Pato Mccall NP Referrals: Reginald Robles MD [Med Staff - Active Staff] - (for an eye appointment tomorrow) Pato Mccall M1 [employer]MAN, M1 [employer]-C [Primary Care Provider] - 3-5 Days Disposition Disposition: Home, Self Care What to do if you have Problems For any increased pain, shortness of breath, bleeding, nausea or vomiting, chestpain, or any unexpected problems, contact your Primary Care Provider. Call [facility] ([phone]) or report to the closest Emergency Room. Call 911 if necessary. 09/27/22 1643 <Electronically signed by Issac Jose MD> Cosigner Signature (if applicable): CC: M1 [employer]-C Pato Mccall ~ Signed [facility] Work Phone: Evaluation + Plan note Future Appointments Appointment Date:10/12/2023 09:40:00 AM Scheduled Provider:PATO MCCALL APRN - INDUSTRIAL ORDER CLERK Location:[facility] Appointment Type: OV Follow Up Future Scheduled Tests Laboratory* A1C Hemoglobin 10/12/23 * Complete Blood Count 10/12/23 * Lipid Profile 10/12/23 * PTH, Intact 10/12/23 * Vitamin D Level 10/12/23 * Complete Metabolic Panel 10/12/23 Radiology* CT Thorax w/ Contrast 01/14/23 [facility] evaluation + Plan note Future Appointments Appointment Date:04/14/2024 09:40:00 AM Scheduled Provider:PATO MCCALL APRN, CNP Location:[facility] Appointment Type:PC OV Follow Up Future Scheduled Tests Laboratory* A1C Hemoglobin 04/13/24 * A1C Hemoglobin 10/12/23 * Complete Blood Count 04/13/24 * Complete Blood Count 10/12/23 * Lipid Profile 04/13/24 * Lipid Profile 10/12/23 * Albumin/Creatinine Ratio, Random Urine 04/13/24 * PTH, Intact 04/13/24 * PTH, Intact 10/12/23 * Vitamin D Level 04/13/24 * Vitamin D Level 10/12/23 * Complete Metabolic Panel 04/13/24 * Complete Metabolic Panel 10/12/23 Radiology* CT Thorax w/ Contrast 01/14/23 [facility] Evaluation + Plan note Future Appointments Appointment Date:04/14/2024 09:40:00 AM Scheduled Provider:PATO MCCALL APRN - ANTHONY Location:[facility] Appointment Type: OV Follow Up Future Scheduled Tests Laboratory* A1C Hemoglobin 04/13/24 * Complete Blood Count 04/13/24 * Lipid Profile 04/13/24 * Albumin/Creatinine Ratio, Random Urine 04/13/24 * PTH, Intact 04/13/24 * Vitamin D Level 04/13/24 * Complete Metabolic Panel 04/13/24 [facility] evaluation noteNo assessment information available [facility] [place] Work Phone: evaluation note* Diagnosis Onset Date Resolution Status Acute dyspnea acute Acute hypoxic respiratory failure acute Bilateral pleural effusion a cute Chest pain acute Community acquired pneumonia acute Elevated brain natriuretic peptide (BNP) level acute Elevated troponin acute NSTEMI, initial episode of care acute Morbid obesity chronic [facility] [place] Work Phone: evaluation note* Diagnosis Onset Date Resolution Status Acute dyspnea acute Acute hypoxic respiratory failure acute Bilateral pleural effusion a cute Chest pain acute Community acquired pneumonia acute Elevated brain natriuretic peptide (BNP) level acute Elevated troponin acute NSTEMI, initial episode of care acute Essential (primary) hypertension chronic Morbid obesity chronic [facility] [place] Work Phone: Evaluation note* Diagnosis Onset Date Resolution Status Community acquired pneumonia acute Essential (primary) hypertension chronic Morbid obesity chronic Acute dyspnea resolved Acute hypoxic respiratory failure resolved Chest pain resolved NSTEMI, initial episode of care resolved [facility] [place] Work Phone: Evaluation note* Diagnosis Onset Date Resolution Status Community acquired pneumonia acute Essential (primary) hypertension chronic Morbid obesity chronic Acute dyspnea resolved Acute hypoxic respiratory failure resolved Chest pain resolved NSTEMI, initial episode of care resolved 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 05, 2023 chronic Essential (primary) hypertension chronic Paroxysmal atrial fibrillation chronic Pericardial effusion with cardiac tamponade 2014 resolved Dyspnea on exertion acute 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 05, 2023 chronic Essential (primary) hypertension chronic Paroxysmal atrial fibrillation chronic Pericardial effusion with cardiac tamponade 2014 resolved [facility] [place] Work Phone: Hospital course Narrative No data available for this section [facility] Hospital Discharge instructions Additional Instructions FOLLOW UP WITH CARDIOLOGY SCHEDULED Instructions for [employer] copay card Go to [employer] and scroll to bottom Click Cost, savings, and support Request ci pay card Fill out info show [facility] [place] Work Phone: Hospital Discharge instructions No data available for this section [facility] Progress note No data available for this section [facility] Family History No Family History Records Found Relationship Condition Age at Onset Recorded Date/T lynette mother Myocardial infarction Unknown Coronary artery disease Unknown Advance Directives No Advanced Directives Records Found Advance Directive Response Recorded Date/ Time Advance Directives Yes October 8:39am Living Will No October 20, 2018 8:39am Power of Shot Bagger No October 8:39am Advance Directive Response Recorded Date/ Time Advance Directives Yes October 8:39am Living Will No September 27 3:37pm Power of Shot Bagger No September 27, 2 023 3:37pm Advance Directive Response Recorded Date/ Time Name of Medical Power of Shot Bagger daughter January 05, 2023 9:28am Advance Directives Yes October 7:39am Living Will Yes January 05, 2 023 9:28am Power of Shot [place]agger Yes January 05, 2023 9:28am Advance Directive Response Recorded Date/ Time Name of Medical Power of Shot [place] daughter January 05, 2023 2:59pm Advance Directives Yes October 7:39am Living Will Yes January 05, 2 023 2:59pm Power of Shot [place]agger Yes January 05, 2023 2:59pm Advance Directive Response Recorded Date/ Time Name of Medical Power of Shot B[employer] daughter January 05, 2023 2:59pm Name of Medical Power of Shot Bagger Rai Ibarra January 23, 2023 10:29pm Name of Medical Power of Shot Bagger rai danae-daughter inga ibarra-son January 30, 2023 12:15pm Advance Directives Yes October 7:39am Living Will Yes January 30, 023 12:15pm Power of Shot [place]agger Yes January 30, 2023 12:15pm Advance Directive Response Recorded Date/ Time Name of Medical Power of Shot B[employer] daughter January 05, 2023 2:59pm Name of Medical Power of Shot Bagger Rai Ibarra January 23, 2023 10:29pm Name of Medical Power of Shot Bagger daughter March 03, 2023 6:57pm Advance Directives Yes October 7:39am Living Will Yes March 03 6:57pm Power of Shot Bagger Yes March 03, 2023 6:57pm Name of Medical Power of Shot Bagger rai samsonser-daughter inga ibarra-son January 30, 2023 12:15pm Advance Directive Response Recorded Date/ Time Name of Medical Power of Shot B[employer] daughter March 03, 2023 7:57pm Advance Directives Yes October 8:39am Living Will Yes March 03 7:57pm Power of Shot Bagger Yes March 03, 2023 7:57pm Name of Medical Power of Shot Bagger rai ibarra-daughter inga ibarra-son January 30, 2023 1:15pm Advance Directive Response Recorded Date/ Time Name of Medical Power of Shot Bagger daughter January 05, 2023 2:59pm Name of Medical Power of Shot Bagger Rai Ibarra January 23, 2023 10:29pm Advance Directives Yes October 7:39am Living Will Yes January 23, 023 10:29pm Power of Shot Bagger Yes January 23, 2023 10:29pm Chief Complaint and Reason for Visit Chief Complaint ANXIETY Chief Complaint ANXIETY NSTEMI Reason for Visit Acute dyspnea Acute hypoxic respiratory failure Bilateral pleural effusion Chest pain Community acquired pneumonia Elevated brain natriuretic peptide (BNP) level Elevated troponin NSTEMI, initial episode of care Morbid obesity Chief Complaint ANXIETY NSTEMI NSTEMI NSTEMI NSTEMI NSTEMI NSTEMI Reason for Visit Acute dyspnea Acute hypoxic respiratory failure Bilateral pleural effusion Chest pain Community acquired pneumonia Elevated brain natriuretic peptide (BNP) level Elevated troponin NSTEMI, initial episode of care Essential (primary) hypertension Morbid obesity Chief Complaint ANXIETY NSTEMI NSTEMI NSTEMI NSTEMI NSTEMI NSTEMI NSTEMI Reason for Visit Acute dyspnea Acute hypoxic respiratory failure Bilateral pleural effusion Chest pain Community acquired pneumonia Elevated brain natriuretic peptide (BNP) level Elevated troponin NSTEMI, initial episode of care Essential (primary) hypertension Morbid obesity Chief Complaint NSTEMI NSTEMI NSTEMI NSTEMI NSTEMI NSTEMI NSTEMI CP PALPITATIONS Reason for Visit Community acquired p [place] Essential (primary) hypertension Morbid obesity Acute dyspnea Acute hypoxic respiratory failure Chest pain NSTEMI, initial episode of care Chief Complaint NSTEMI NSTEMI NSTEMI NSTEMI NSTEMI NSTEMI NSTEMI CP PALPITATIONS S/P [facility] 01/10 NSTEM I / 01/23 CP / 01/30 PALP See clinical note: edema, tachycardia L.L. heydi swelling Reason for Visit Community acquired p [place] Essential (primary) hypertension Morbid obesity Acute dyspnea Acute hypoxic respiratory failure Chest pain NSTEMI, initial episode of care Atherosclerotic heart disease of [place] coronary artery without angina pectoris Essential (primary) hypertension Paroxysmal atrial fibrillation Pericardial effusion with cardiac tamponade Dyspnea on exertion Atherosclerotic heart disease of [place] coronary artery without angina pectoris Essential (primary) hypertension Paroxysmal atrial fibrillation Pericardial effusion with cardiac tamponade Chief Complaint PALPITATIONS S/P [facility] 01/10 NSTEM I / 01/23 CP / 01/30 PALP See clinical note: edema, tachycardia L.L. heydi swelling 4 W FU Reason for Visit Atherosclerotic hear t disease of [place] coronary artery without angina pectoris Essential (primary) hypertension Paroxysmal atrial fibrillation Pericardial effusion with cardiac tamponade Dyspnea on exertion Atherosclerotic heart disease of [place] coronary artery without angina pectoris Essential (primary) hypertension Paroxysmal atrial fibrillation Pericardial effusion with cardiac tamponade Anemia Dyspnea on exertion Atherosclerotic heart disease of [place] coronary artery without angina pectoris Essential (primary) hypertension Paroxysmal atrial fibrillation Pericardial effusion with cardiac tamponade Chief Complaint ANXIETY NSTEMI NSTEMI NSTEMI NSTEMI NSTEMI NSTEMI NSTEMI CP Reason for Visit Community acquired p [place] Essential (primary) hypertension Morbid obesity Acute dyspnea Acute hypoxic respiratory failure Chest pain NSTEMI, initial episode of care Summary Purpose Additional Source Comments Goals (unrecognized section and content) Goals may be documented in a n alternate sectionGoals may be documented in an alternate sectionGoals may be documented in an alternate sectionGoals may be documented in an alternate sectionGoals may be documented in an alternate section No data available for this section No data available for this section No data available for this section No data available for this section No data available for this section Care Teams (unrecognized sec tion and content) Team Status: Active Member Role Status Dates Dr. Alex Chavez MD Family Provider Active Pato Mccall M1 ARMOR CREWMAN, M1 ARMOR CREWMAN-C Primary Care Provider Active Team Status: Inactive Member Role Status Dates Pato Mccall NP, M1 ARMOR CREWMAN-C Primary Care Provider, Attending Provider, Referring Provider Active Team Status: Inactive Member Role Status Dates Pato Mccall NP, M1 ARM[employer] CREWMAN-C Primary Care Provider Active Dr. Issac Jose MD Emergency Provider Active Team Status: Inactive Member Role Status Dates Pato Mccall NP, M1 ARM[employer] CREWMAN-C Primary Care Provider Active Dr. Issac Jose MD Attending Provider, Emergency Pr ovider Active Team Status: Active Member Role Status Dates Pato Mccall NP, M1 ARMOR CREWMAN-C Primary Care Provider Active Dr. Harjit Vee DO Emergency Provider Active Dr. Atul Cardozo DO Admit Provider, Attending Provider Active Team Status: Active Member Role Status Dates Pato Mccall NP, M1 ARMOR CREWMAN-C Primary Care Provider Active Dr. Kirk oFrd MD Attending Provider Active Team Status: Active Member Role Status Dates Pato Mccall M1 ARMOR CREWMAN, M1 ARM[employer] CREWMAN-C Primary Care Provider Active Dr. Harjit Vee DO Emergency Provider Active Dr. Atul Cardozo , DO Admit Provider, Other Pro vider Active Dr. Varun Guzman MD Other Provider Active Dr. Tasha Kim MD Other Provider Active Dr. Kirk Ford MD Attending Provider Active Team Status: Active Member Role Status Dates Pato Mccall M1 ARMOR CREWMAN, M1 ARM[employer] CREWMAN-C Primary Care Provider Active Dr. Harjit Vee DO Emergency Provider Active Dr. Atul Cardozo , DO Admit Provider, Other Pro vider Active Dr. Varun Guzman MD Other Provider Active Dr. Tasha Kim MD Attending Provider, Other Provid er Active Team Status: Active Member Role Status Dates Pato Mccall M1 ARMOR CREWMAN, M1 ARMOR CREWMAN-C Primary Care Provider Active Dr. Harjit Vee DO Emergency Provider Active Dr. Atul Cardozo DO Admit Provider, Other Pro vider Active Dr. Varun Guzman MD Other Provider Active Dr. Tasha Kmi MD Other Provider Active Dr. Moustapha Saini DO Attending Provider Active Team Status: Inactive Member Role Status Dates Pato Mccall M1 ARMOR CREWMAN, M1 ARMOR CREWMAN-C Primary Care Provider Active Dr. Harjit Vee DO Emergency Provider Active Dr. Atul Cardozo DO Admit Provider, Other Pro vider Active Dr. Varun Guzman MD Other Provider Active Dr. Tasha Kim MD Attending Provider Active Team Status: Active Member Role Status Dates Pato Mccall M1 ARMOR CREWMAN, M1 ARMOR CREWMAN-C Primary Care Provider Active Dr. Kirk Ford MD Attending Provider Active Dr. Atul Cardozo , Referring Provider Active Team Status: Active Member Role Status Dates Pato Mccall M1 ARMOR CREWMAN, M1 ARMOR CREWMAN-C Primary Care Provider Active Dr. Harjit Vee DO Emergency Provider Active Dr. Atul Cardozo DO Admit Provider, Other Pro vider Active Dr. Varun Guzman MD Other Provider Active Dr. Tasha Kim MD Attending Provider, Other Provid er Active Dr. Moustapha Saini DO Active Team Status: Inactive Member Role Status Dates Pato Mccall M1 ARMOR CREWMAN, M1 [employer] CREWMAN-C Primary Care Provider Active Dr. Harjit Vee DO Attending Provider, Emergency P ashvin Active Team Status: Inactive Member Role Status Dates Pato Mccall M1 ARMOR CREWMAN, M1 ARM[employer] CREWMAN-C Primary Care Provider Active Dr. Harjit Vee DO Emergency Provider Active Team Status: Inactive Member Role Status Dates Pato Paynejyoti Mccall M1 ARMOR CREWMAN, M1 [employer] CREWMAN-C Primary Care Provider, Referring Provider Active Monserrat Angulo PA, PA Attending Provider Active Team Status: Inactive Member Role Status Dates Pato Mccall M1 ARMOR CREWMAN, M1 [employer] CREWMAN-C Primary Care Provider, Referring Provider Active Avi Baeza M1 ARMOR CREWMAN, M1 ARM[employer] CREWMAN-C Attending Provider Active Team Status: Active Member Role Status Dates Pato Mccall M1 ARMOR CREWMAN, M1 [employer] CREWMAN-C Primary Care Provider Active Avi Baeza M1 ARMOR CREWMAN, M1 ARM[employer] CREWMAN-C Attending Provider, Referring Pro vider Active Team Status: Inactive Member Role Status Dates Pato Mccall M1 ARMOR CREWMAN, M1 [employer] CREWMAN-C Primary Care Provider Active Dr. Magalys Shi MD Emergency Provider Active Team Status: Inactive Member Role Status Dates Pato Mccall M1 ARMOR CREWMAN, M1 [employer] CREWMAN-C Primary Care Provider Active Avi Baeza M1 ARMOR CREWMAN, M1 ARM[employer] CREWMAN-C Attending Provider, Referring Pro vider Active Team Status: Inactive Member Role Status Dates Pato Paynejyoti Mccall M1 ARMOR CREWMAN, M1 ARM[employer] CREWMAN-C Primary Care Provider Active Dr. Magalys Shi MD Attending Provider, Emergency Provider Active INFORMATION SOURCE (unrecogn ized section and content) DATE CREATED AUTHOR 07/21/2023 [facility] ([place]) DATE CREATED AUTHOR AUTHOR'S ORGANIZ ATION 10/15/2023 [facility] DATE CREATED AUTHOR AUTHOR'S ORGANIZ ATION 07/07/2024 [facility] FOR RECORDS PERTAINING TO PATIENTS WHO ARE [...] BE BASED ON THE PRIMARY CLINICAL RECORDS. [facility] [employer] [facility] provides no warranty or guarantee of the accuracy or completeness of information in this document.
[2024-07-23 21:30] LABS: Troponin T High Sensitivity 16 ng/L (<=14)
[2024-07-23 21:33] LABS: AST(SGOT) 27 U/L (<=31); Alanine Aminotransfer ALT/SGPT 34 U/L (<=34); Albumin, Serum 3.6 g/dL (3.4-4.8); Alkaline Phosphatase 109 U/L (35-104); Anion Gap 13 (5-15); BUN 24 mg/dL (4-19); BUN/Creat Ratio 24.2 RATIO (10-20); Bilirubin, Direct 0.13 mg/dL (0.00-0.30); Calcium,Total 8.8 mg/dL (7.6-11.0); Carbon Dioxide 22.8 mmol/L (21.0-32.0); Chloride 97 mmol/L (98-108); EST Glomerular Filtration Rate 64 (>60); Estimated Creatinine Clearance 88.86 ml/min (50-250); Globulin 3.1 g/dL (2.2-4.2); Glucose 400 mg/dL (70-99); Potassium 4.5 mmol/L (3.3-5.1); Pro- Brain NATRIURETIC PEPTIDE 1062 pg/mL (<=900); Protein, Total 6.7 g/dL (5.9-8.4); Sodium Level 133 mmol/L (133-145); Total Bilirubin 0.35 mg/dL (0.00-1.30)
[2024-07-23 22:02] LABS: Color, Urine Straw (Yellow); Glucose, Dipstick 1000 mg/dl (Normal); Ketone-Dipstick Negative (Negative); Leukocyte Esterase-Dipstick 100 /ul (Negative); Nitrite-Dipstick Negative (Negative); Occult Blood-Urine 25 /ul (Negative); Protein-Dipstick 100 mg/dl (Negative); Specific Gravity, Urine 1.015 (1.002-1.030); Urine Bilirubin Dipstick Negative (Negative); Urine Clarity Sl. Cloudy (Clear); Urine Urobilinogen Normal (Normal)
[2024-07-23 22:07] LABS: Red Blood Cells-Urine 0-5 SEEN /hpf (0-5); Squamous Epithelial Cells - UA 5-10 SEEN /hpf (5-10); White Blood Cells 5-10 SEEN /hpf (0-5)
[2024-07-23 22:08] LABS: Bacteria 3+ /hpf (None Seen); Mucous, Urine 1+ /hpf (<or=2+); Transitional Epithelial - Ur 0-5 SEEN /hpf (0-5); Yeast-Urine 1+ /hpf (None Seen)
[2024-07-23 23:20] LABS: Troponin T High Sens 2 HR 16 ng/L (<=14)
== END 2024-07-23 23:55 | disposition home or self-care (01) ==
PROVIDERS: Emergency Provider Emergency Medicine; PCP Nurse Practitioner Family; Visit Provider Emergency Medicine
DX: I11.0 Hypertensive heart disease with heart failure (principal); I50.9 Heart failure, unspecified; I48.0 Paroxysmal atrial fibrillation; E11.9 Type 2 diabetes mellitus without complications; Z79.4 Long term (current) use of insulin; I49.3 Ventricular premature depolarization; I25.10 Atherosclerotic heart disease of native coronary artery without angina pectoris; E66.9 Obesity, unspecified; F41.9 Anxiety disorder, unspecified; F32.A Depression, unspecified; G47.33 Obstructive sleep apnea (adult) (pediatric); J45.909 Unspecified asthma, uncomplicated; Z79.84 Long term (current) use of oral hypoglycemic drugs; Z79.899 Other long term (current) drug therapy; Z87.891 Personal history of nicotine dependence
CPT/HCPCS: 71045; 80048; 80076; 81001; 83880; 84484; 85025; 93005; 96374; 99284; A4216

== ENCOUNTER 2024-12-21 17:40 | Emergency (ER) | payer BC, SELFPAY ==
[2024-12-21 17:42] VITALS: BP 197/82; PULSE 91; RESP 18; TEMP 35.9; O2SAT 100
[2024-12-21 17:45] VITALS: BMI 55.1
[2024-12-21 18:08] VITALS: BP 168/73; BP 205/73; BP 216/78; PULSE 65; PULSE 84; PULSE 93
--- NOTE | 2024-12-21 18:08 | EKG12_ITS ---
Test Reason : DIZZINESS Blood Pressure : */* mmHG Vent. Rate : 83 BPM Atrial Rate : 83 BPM P-R Int : 160 ms QRS Dur : 88 ms QT Int : 394 ms P-R-T Axes : 55 16 103 degrees QTcB Int : 462 ms Normal sinus rhythm Left ventricular hypertrophy with repolarization abnormality ( R in aVL ) Abnormal ECG Confirmed by ROGELIO ORDOÑEZ, DANO ([id number]), non linear editor BRANDON RICO ([id number]) on 12/25/2024 8:35:59 AM Referred By: Confirmed By: DANO MERCADO MD
[2024-12-21] MEDS: 0.9% Normal Saline (1000mL) 1,000 ML 1000 ML IV (18:18)
[2024-12-21 18:27] LABS: Hematocrit 37.2 % (37-47); Hemoglobin 12.0 g/dL (12.0-15.0); Immature Granulocytes Count 0.040 X10^3/uL (0.0-0.0); Mean Corp Hgb Conc 32.3 g/dL (32-36); Mean Corpuscular Volume 86.5 fL (81-99); Mean Platelet Vol. 9.4 fl (6.2-12.0); NRBC Flagged by Analyzer 0 % (0-5); Platelet Count 417 K/mm3 (150-450); RBC Distribution Width CV 12.8 % (11.6-14.6); RBC Distribution Width SD 40.0 fl (35.1-43.9); Red Blood Count 4.30 M/mm3 (4.2-5.4); White Blood Count 12.3 K/mm3 (4.4-11.0)
--- NOTE | 2024-12-21 18:28 | EX.ED.DYSGE1 ---
HPI History of Present Illness Chief Complaint: Dizziness Narrative Narrative: Patient is a 59-year-old female presenting to the emergency department for reported "dizziness" since yesterday. States that she was at work when the symptoms started. Has a PMHX of vertigo but states that was years ago. States this feels different because it is coming and going and not positional. Patient also has a past medical history of type 2 diabetes, CAD, anemia, obesity, hypertension, paroxysmal A-fib. On further questioning, she is lightheaded. Denies room spinning sensation. Denies it being with head turning or up and down movement. It is mainly when she stands up. She tried the Valentino maneuver with no relief of her symptoms. States that the symptoms are intermittent. Reports that earlier today she felt dizzy earlier and she tripped causing her to fall onto a coffee table. Denies hitting her head or any LOC. Denies any use of OAC. Denies any injuries from the fall. Reports that her glucose has been high she is only on lantus at this time and was reportedly taken off her oral antihyperglycemic meds a few weeks ago by her PCP. She endorses mild nausea with no vomiting. Denies fever, chills, headache, vision changes, chest pain, SOB, abdominal pain, diarrhea, dysuria or hematuria. Denies lower extremity edema. [facility] Medical History Atherosclerotic heart disease of [place] coronary artery without angina pectoris (01/05/23) Anxiety Diabetes Former smoker CPAP (continuous positive airway pressure) dependence Sleep apnea Hypertension Bilateral pleural effusion Elevated troponin Elevated brain natriuretic peptide (BNP) level Essential (primary) hypertension Arthritis Lung disease Hemorrhoids Diarrhea Knee pain Asthma Chronic neck and back pain Incontinence Abnormal cardiovascular stress test Chest pain Pericardial effusion with cardiac tamponade (~02/2014) Morbid obesity Paroxysmal atrial fibrillation Depression Type 2 diabetes mellitus without complications Obstructive sleep apnea Nicotine abuse Home Medications Medication Instructions Recorded Last Taken Type lorazepam 1 mg tablet 1 mg PO DAILY PRN Anxiety 08/04/17 Unknown History cyanocobalamin (vitamin B-12) 500 1,000 mcg (2 x 500 mcg) PO 01/10/23 Unknown Rx mcg tablet BREAKFAST 30 days #60 tabs insulin glargine 100 unit/mL (3 64 unit subcut DAILY diabetes 03/02/23 Unknown History mL) subcutaneous pen (Lantus Solostar U-100 Insulin) ferrous sulfate 325 mg (65 mg 325 mg PO DAILY #30 tabs 03/31/23 Unknown Rx iron) tablet losartan 100 mg tablet 100 mg PO DAILY #90 tabs 03/31/23 Unknown Rx furosemide 40 mg tablet (Lasix) 40 mg PO DAILY PRN edema 06/22/23 Unknown History furosemide 40 mg tablet (Lasix) 40 mg PO BID PRN edema #20 tabs 07/23/24 Unknown Rx lorazepam 0.5 mg tablet (Ativan) 0.5 mg PO BID PRN anxiety #10 tabs 07/23/24 Unknown Rx venlafaxine 150 mg 150 mg PO DAILY 07/23/24 Unknown History capsule,extended release 24 hr meclizine 12.5 mg tablet 12.5 mg PO TID PRN dizziness #14 12/21/24 Unknown Rx tabs ondansetron 4 mg disintegrating 4 mg PO Q8H PRN PRN Nausea #10 tabs 12/21/24 Unknown Rx tablet Allergy/AdvReac Type Severity Reaction Status Date / Time Antihistamines - Alkylamine Allergy Shortness Verified 12/21/24 17:42 of breath sulfamethoxazole AdvReac Unknown Verified 12/21/24 17:42 trimethoprim AdvReac Unknown Verified 12/21/24 17:42 Family History Mother Myocardial infarction age 71 CAD (coronary artery disease) stents Surgical History History of left heart catheterization (09/06/17) History of cataract surgery Status post LASIK surgery of both eyes Hx of cholecystectomy History of appendectomy H/O dilation of urethra pericardial window (02/16/14) Social History Smoking Status: Former smoker how long ago did patient quit smokin years ago alcohol intake: current alcohol intake frequency: holidays/special occasions only substance use type: does not use caffeine: Yes Type: carbonated beverages Number of servings: 1, coffee Number of servings: 1 and tea Number of servings: 1 ROS ROS ED ROS Narrative see HPI EXAM Physical Exam Narrative Exam Narrative: Vital signs: Reviewed General: Alert and orientedx3. No acute distress HEENT: Head is normocephalic and atraumatic, sinuses nontender, pupils equal round and reactive. No nystagmus. Nares are patent. Oropharynx and throat exams normal. Neck: Supple without lymphadenopathy nontender Cardiovascular: Regular rate and rhythm, no murmurs. No rubs or gallops. Normal S1 and S2 Respiratory: Clear to auscultation bilaterally. No wheezes, rales, rhonchi Abdominal: Soft and nontender. Normal bowel sounds. No guarding or rebound. Nonsurgical abdomen Extremities: No tenderness. No bruising. Normal range of motion. Normal sensation. Skin: No rash or redness. Neurological: Cranial nerves II through XII are grossly intact. Normal strength and sensation. Normal finger to nose testing. Normal heel to weldon testing. Able to ambulate with no ataxia. Normal cerebellar function The rest of the physical exam is unremarkable Const Vital Signs: 12/21/24 17:42 12/21/24 17:50 12/21/24 18:08 Temperature 96.7 F L Temperature Source Temporal Pulse Rate 91 Pulse Rate [Lying] 84 Pulse Rate [Sitting (for 1 minute prior to obtaining)] 93 Pulse Rate [Standing (for 1 minute prior to obtaining)] 65 Respiratory Rate 18 Respiratory Effort Normal Non-Labored Respiratory Pattern Normal Blood Pressure 197/82 H Blood Pressure [Lying] 205/73 H Blood Pressure [Sitting (for 1 minute prior to obtaining)] 216/78 H Blood Pressure [Standing (for 1 minute prior to obtaining)] 168/73 H Blood Pressure Mean 120 Blood Pressure Mean [Lying] 117 Blood Pressure Mean [Sitting (for 1 minute prior to obtaining)] 124 Blood Pressure Mean [Standing (for 1 minute prior to obtaining)] 104 Pulse Ox 100 Oxygen Delivery Method Room Air 12/21/24 19:41 12/21/24 20:00 12/21/24 21:30 Temperature 98.5 F Temperature Source Pulse Rate 67 74 74 Pulse Rate [Lying] Pulse Rate [Sitting (for 1 minute prior to obtaining)] Pulse Rate [Standing (for 1 minute prior to obtaining)] Respiratory Rate 16 Respiratory Effort Respiratory Pattern Blood Pressure 164/76 H 172/69 H 172/69 H Blood Pressure [Lying] Blood Pressure [Sitting (for 1 minute prior to obtaining)] Blood Pressure [Standing (for 1 minute prior to obtaining)] Blood Pressure Mean 105 103 103 Blood Pressure Mean [Lying] Blood Pressure Mean [Sitting (for 1 minute prior to obtaining)] Blood Pressure Mean [Standing (for 1 minute prior to obtaining)] Pulse Ox 96 96 96 Oxygen Delivery Method NIHSS NIHSS Initial: 1a Level of Consciousness: 0 1b LOC Questions (Score 2 if aphasic/stupor): 0 1c LOC Commands (Only score 1st attempt): 0 2 Best Gaze (If aphasic, use reflexive mvmts.): 0 3 Visual: 0 4 Facial Palsy: 0 5 Motor Arm Right (UN = amputation/fusion): 0 5 Motor Arm Left: 0 6 Motor Leg Right: 0 6 Motor Leg Left: 0 7 Limb ataxia (Only + if out of proportion): 0 8 Sensory (Aphasia/stupor=0 or 1, coma=2): 0 9 Best Language: 0 10 Dysarthria (mute, coma=2, intubated=UN): 0 11 Extinction and Inattention (only scored if +): 0 Total Score: 0 MDM MDM MDM Narrative Medical decision making narrative: Patient is a 59-year-old female presenting to the emergency department for lightheadedness and nausea. Patient was seen and examined. Vitals are stable. Patient resting in bed comfortably in no acute distress. Patient given a fluid bolus. With the patient's description of her dizziness it sounds more like lightheadedness. She has no vertiginous symptoms. No ataxia noted on neurologic testing. She is not experiencing her symptoms here on my evaluation. Less likely central cause of vertigo given her symptoms are not clinically vertiginous and the symptoms are coming and going and not present on evaluation here. CBC with mild nonspecific leukocytosis of 12.3 and a normal hemoglobin. BMP with no significant abnormalities. Slightly elevated Cr at 1.24, improved from 1.42 on 11/21. Hyperglycemic at 393 similar to prior with no decreased bicarb and no anion gap. No evidence of DKA. EKG shows normal sinus rhythm with no ischemic changes. LVH. No dysrhythmia. CT brain shows no intracranial hemorrhage. No mass effect or midline shift. CTA of the head and neck is unremarkable with no significant stenosis or occlusion. Chest x-ray reviewed by myself, no opacities, pneumothorax or wide mediastinum. Radiology read in agreement. Patient was reevaluated. Able to ambulate to and from the bathroom without difficulty after fluids. States that she is feeling better. Did not experience the symptoms when she was walking or while I am updating her at bedside. She has no nausea at bedside on my reevaluation. Will be prescribed meclizine and Zofran if needed for at home. Patient discharged from the Emergency Department. I do not feel that the patient's evaluation reveals any acute reason for admission at this time. I instructed them to either follow-up with their primary care physician or promptly return to the Emergency Department for reevaluation should symptoms worsen or new symptoms develop. I explained what symptoms would indicate the need to return to the emergency department. Shared decision making was used. The patient voiced understanding of the treatment plan and is agreeable with it. Clinical impression: Hyperglycemia Lightheadedness History & Record Review Discussion w/independent historian: Patient and Family Lab Data Attestation: I reviewed the patient's lab results. Labs: Laboratory Results - last 24 hr 12/21/24 10:20 WBC 12.3 H RBC 4.30 Hgb 12.0 Hct 37.2 MCV 86.5 MCH 27.9 MCHC 32.3 RDW Std Deviation 40.0 RDW Coeff of Linda 12.8 Plt Count 417 MPV 9.4 Immature Gran % (Auto) 0.300 Neut % (Auto) 73.8 H Lymph % (Auto) 17.2 L [place] % (Auto) 7.2 Eos % (Auto) 0.9 Baso % (Auto) 0.6 Absolute Neuts (auto) 9.1 H Absolute Lymphs (auto) 2.11 Nucleated RBC % 0 Sodium 132 L Potassium 4.2 Chloride 96 L Carbon Dioxide 22.9 Anion Gap 14 BUN 19 Creatinine 1.24 H Estim Creat Clear Calc 68.55 Est GFR (MDRD) Non-Af 50 L BUN/Creatinine Ratio 14.9 Glucose 393 H Calcium 9.5 Radiography Diagnostic Testing: Clinical Impression(s) from Imaging Studies Brain CT 12/21/24 19:25 IMPRESSION: No intracranial hemorrhage. No mass effect or midline shift. Reading Location: [facility] Head/Neck CTA 12/21/24 19:25 IMPRESSION: Unremarkable CT angiogram of the head and neck with no hemodynamically significant stenosis or occlusion. Right sphenoid and ethmoid sinusitis. Reading Location: [facility] Chest X-Ray 12/21/24 19:34 IMPRESSION: NO ACUTE FINDINGS. Reading Location: [facility] Discharge Plan Triage Chief Complaint: Dizziness Other Complaint: Hyperglycemia ED Provider: Myriam Brownlee Dx/Rx/DC Orders Clinical Impression: Light-headedness, Hyperglycemia due to type 2 diabetes mellitus Instructions: ED Diabetic Hyperglycemia, ED Vertigo, Unspecified Prescriptions: New meclizine 12.5 mg tablet 12.5 mg PO TID PRN (Reason: dizziness) Qty: 14 0RF ondansetron 4 mg tablet,disintegrating 4 mg PO Q8H PRN PRN (Reason: Nausea) Qty: 10 0RF No Action lorazepam 1 mg tablet 1 mg PO DAILY PRN (Reason: Anxiety) Patient Comments: pt confirms she doesn't regularly take med insulin glargine [Lantus Solostar U-100 Insulin] 100 unit/mL (3 mL) insulin pen 64 unit SC DAILY Patient Comments: states she does not take everyday ferrous sulfate 325 mg (65 mg iron) tablet 325 mg PO DAILY Qty: 30 11RF Patient Comments: pt confirms she doesn't regularly take med losartan 100 mg tablet 100 mg PO DAILY Qty: 90 3RF Patient Comments: pt confirms she doesn't regularly take med furosemide [Lasix] 40 mg tablet 40 mg PO DAILY PRN (Reason: edema) Patient Comments: pt confirms she doesn't regularly take med cyanocobalamin (vitamin B-12) 500 mcg Tablet 1,000 mcg PO BREAKFAST 30 Days Qty: 60 0RF Patient Comments: pt confirms she doesn't regularly take med venlafaxine 150 mg capsule,extended release 24hr 150 mg PO DAILY Patient Comments: pt confirms she doesn't regularly take med furosemide [Lasix] 40 mg tablet 40 mg PO BID PRN (Reason: edema) Qty: 20 0RF lorazepam [Ativan] 0.5 mg tablet 0.5 mg PO BID PRN (Reason: anxiety) Qty: 10 0RF Primary Care Provider: [facility] Doctor,Out of Referrals: [facility] [Non-Staff, Family Practice] - As soon as possible Activity Restrictions/Additional Instructions: Your evaluation in the Emergency Department did not reveal any acute reason for admission. However, I want to emphasize that you may be early in the course of a disease process or illness even if it is not present. For this reason you should follow-up within 24 hours for reevaluation with either your primary care physician or if necessary back here in the Emergency Department. You should return to the Emergency Department immediately if your symptoms worsen or new symptoms develop. Print Language: Greek Disposition Disposition: Home, Self Care Discharge Date/Time: 12/21/24 21:31
--- OUTSIDE RECORDS SUMMARY | 2024-12-21 19:16 | XMS RPT_ITS | CCD ---
Author Organization [facility] Care Team Providers Care Rn Forensic Name Role Phone Stefany STILL TENDER, STILL TENDER-Caleb Butler Primary Care Pr ovider Dr. Kirk Ford Attending Provider Dr. Harjit Vee Emergency Provider Dr. Atul Cardozo Admit Provider [phone] Atul Cardozo Other Provider Dr. Varun Guzman Other Provider Dr. Tasha Kim Other Provider Dr. Tasha Kim Attending Provider Dr. Moustapha Saini Attending Provider Dr. Atul Cardozo Referring Provider Stefany QUISPE, BRITTANEY-Caleb Butler Referring Provi tico TALIA Garcia Attending Provider CHHAYA Baeza NP Attending Provider Stefany QUISPE NP-Caleb Butler Primary Care Pr ovider CHHAYA Mccall NP Referring Provi tico TALIA Garcia Attending Provider CHHAYA Baeza NP Attending Provider PATO MISTRY APRN, CNP Primary Care Phys ician PATO MISTRY APRN, CNP Attending U navailable STEFANY NETWORK MGR - ASSEMBLER DR[employer] CELL [employer] BATTERY, PATO Rangel Primary Care U navailable STEFANY [employer] MGR - ASSEMBLER [employer]TER[employer], PATO Rangel Attending U navailable STEFANY NETWORK MGR - ASSEMBLER DR[employer] CELL [employer] BATTERY, PATO Rangel Primary Care U navailable STEFANY NETWORK MGR - ASSEMBLER [employer] BATTER[employer], PATO Rangel Primary Care U navailable LIZA WYNN DO Attending Unavailable MICHELLE NETWORK MGR-ASSEMBLER [employer]TER[employer], KEYANNA Attending José Luis marsh STEFANY [employer]WORK [employer]GR - ASSEMBLER [employer]TER[employer], PATO Rangel Primary Care U navailable STEFANY [employer] - ASSEMBLER [employer]TER[employer], PATO Rangel Attending U navailable STEFANY [employer] MGR - ASSEMBLER [employer] BATTER[employer], PATO Rangel Primary Care U navailable Stefany STILL TENDER-C, Pato Butler Primary Care Provi tico Dr. Harjit Vee DO Emergency Provider [phone] Stefany STILL TENDER, Pato Butler Primary Care Unav ailable Harjit Vee Attending Unavailable GULSHAN SWANSON Attending Unavailable GULSHAN SWANSON Referring Unavailable Stefany QUISPE, Pato Butler Primary Care Unav ailable Allergies Allergy Classification Reported Allergen(s) Allergy Type Date of Onset Reaction(s) Facility (11 sources) Sulfamethoxazole Drug Allergy 11-18-19 19 Unknown [facility] (11 sources) Trimethoprim Drug Allergy 11-18-19 19 Unknown [facility] (11 sources) Antihistamines - Alkylamine Allergy to substance 11-18-19 19 Shortness of breath [facility] (5 sources) Sulfamethoxazole / Trimethoprim; Translations: [sulfamethoxazole-tr imethoprim] Drug Allergy Eruption of skin (disorder) [facility] (5 sources) Sulfonamide; Translations: [sulfa drugs] Drug allergy rash [facility] (1 source) Sulfamethoxazole Drug Allergy 07-24-19 [facility] (1 source) Trimethoprim Drug Allergy 07-24-19 [facility] (1 source) Antihistamines - Alkylamine Drug allergy (disorder) 07-24-19 [facility] Medications Current Medications Medication Drug Class(es) Dates Sig (Normalized) Sig (Original) 0.5 ML tirzepatide 10 MG/ML Auto-Injector [oM] (1 source) Start: 07-12-2023 End: 10-10-2023 inject 1 dose by subcutaneous injection every week Mounjaro 5 mg/0.5 mL subcutaneous solution Dose : 5 mg =, Subcutaneous, qWeek, rotate injection sites (Not able to tolerate Trulicity or Ozempic), # 4 EA, 2 Refill(s), Pharmacy: [facility], DM type 2, goal HbA1c Start Date: 07/12/23 Stop Date: 10/10/23 Status: Ordered 0.5 ML tirzepatide 15 MG/ML Auto-Injector [Mounjaro] (4 sources) Start: 10-15-2023 inject 1 dose by subcutaneous injection every week Mounjaro 7.5 mg/0.5 mL subcutaneous solution Dose : 7.5 mg =, Subcutaneous, qWeek, rotate injection sites, # 4 EA, 3 Refill(s), Pharmacy: [facility], DM type 2, goal HbA1c Start Date: 10/15/23 Status: Ordered Quantity: 4.0 Unit: EA Repeat number: 4 Indication: Type 2 diabetes mellitus without complications Start: 10-15-2023 inject 1 dose by sub cutaneous injection every week Mounjaro 7.5 mg/0.5 mL subcutaneous solution Dose : 7.5 mg =, Subcutaneous, qWeek, rotate injection sites, # 4 EA, 3 Refill(s), Pharmacy: [facility], DM type 2, goal HbA1c Start Date: 10/15/23 Status: Ordered [id number] 200 actuat albuterol 0.09 mg/actuat metered dose inhaler (12 sources) beta2-Adrenergic Agonist Start: 03-31-2023 Albut lucas Sulfate 90 mcg/actuation HFA aerosol inhaler Active 2 NMA INHALATION EVERY 4-6 HOURS as needed for shortness of breath or wheezing 6.7 March 31, 2023 1:00am Start: 03-31-2023 take 1 puff(s) by in halation every four to six hours Albuterol Sulfate [...] 2017 12:00am atorvastatin 40 mg oral tablet (13 sources) HMG-CoA Reductase Inhibitor Start: 01-05-2023 End: 07-06-2024 atorvastatin 40 mg oral tablet Dose : 40 mg = 1 tab(s), Oral, qDay, # 90 tab(s), 1 Refill(s), Pharmacy: [facility], 166, cm, 10/15/23 9:35:00 EDT, Height, kg, 10/15/23 9:35:00 EDT, Dosing Weight Start Date: 10/15/23 Stop Date: 04/12/24 Status: Ordered Quantity: 90.0 Unit: tab(s) Repeat number: 2 Blood Glucose Test Machine (5 sources) Start: 08-18-2021 Blood Glucose Test Machine See Instructions, 1 machine please, # 1 EA, 0 Refill(s), Pharmacy: [facility], 168, cm, 08/18/21 8:24:00 EDT, Height, 146.7, kg, 08/18/21 8:24:00 EDT, Dosing Weight Start Date: 08/18/21 Status: Ordered Quantity: 1.0 Unit: EA Repeat number: 1 Start: 08-18-2021 Blood Glucose Test Machine See Instructions, 1 machine please, # 1 EA, 0 Refill(s), Pharmacy: [facility], 168, cm, 08/18/21 8:24:00 EDT, Height, 146.7, kg, 08/18/21 8:24:00 EDT, Dosing Weight Start Date: 08/18/21 Status: Ordered ferrous sulfate 325 mg oral tablet (2 sources) Start: 03-31-2023 take 1 tablet by mouth once daily Ferrous Sulfate 325 mg (65 mg iron) tablet Active 325 mg PO DAILY March 31, 2023 1:00am furosemide 40 mg oral tablet (12 sources) Loop Diuretic Start: 07-23-2024 take 1 tablet by mouth twice daily as needed for edema Furosemide (Lasix) 40 mg tablet Active 40 mg PO TWICE A DAY as needed for edema July 23, 2024 12:00am Start: 02-07-2024 take 1 tablet by fatemeh th once daily as needed furosemide 20 mg oral tablet See Instructions, 1 tab(s) Oral qDay as needed for swelling or SOB for 30 day(s), # 30 tab(s), 0 Refill(s), Pharmacy: [id number], 167.5, cm, 02/07/24 13:56:00 EST, Height, kg, 02/07/24 13:56:00 EST, Dosing Weight Start Date: 02/07/24 Status: Ordered Quantity: 30.0 Unit: tab(s) Repeat number: 1 Start: 01-30-2023 End: 06-22-2023 take 1 tablet by mouth once daily as needed for edema Furosemide (Lasix) 40 mg tablet Active 40 mg PO DAILY as needed for edema June 22, 2023 9:03am glipiZIDE er 5 mg 24 hr extended release oral tablet (13 sources) Sulfonylurea Start: 10-15-2023 glipiZIDE 5 mg oral tablet, extended release Dose : 5 mg = 1 tab(s), Oral, qDayM, # 90 tab(s), 1 Refill(s), Pharmacy: [facility], 166, cm, 10/15/23 9:35:00 EDT, Height, kg, 10/15/23 9:35:00 EDT, Dosing Weight Start Date: 10/15/23 Status: Ordered Quantity: 90.0 Unit: tab(s) Repeat number: 2 Start: 01-05-2023 glipiZIDE 5 mg oral tablet, extended release Dose : 5 mg = 1 tab(s), Oral, qDayM, # 90 tab(s), 1 Refill(s), Pharmacy: [facility], 166, cm, 07/12/23 9:47:00 EDT, Height, kg, 07/12/23 9:47:00 EDT, Dosing Weight Start Date: 07/12/23 Status: Ordered 3 ml insulin glargine 100 unt/ml pen injector (20 sources) Insulin Analog Start: 10-15-2023 inject 1 dose by subcutaneous injection once daily Lantus Solostar Pen 100 units/mL 3 mL Pen Dose : 64 unit(s) =, Subcutaneous, qDay, [facility], # 15 mL, 5 Refill(s), Pharmacy: [facility], 166, cm, 10/15/23 9:35:00 EDT, Height, kg, 10/15/23 9:35:00 EDT, Dosing Weight Start Date: 10/15/23 Status: Ordered Quantity: 15.0 Unit: mL Repeat number: 6 Start: 07-12-2023 inject 1 dose by sub cutaneous injection once daily Lantus Solostar Pen 100 units/mL 3 mL Pen Dose : 64 unit(s) =, Subcutaneous, qDay, [facility], # 15 mL, 5 Refill(s), Pharmacy: [facility], 166, michael, 07/12/23 9:47:00 EDT, Height, kg, 07/12/23 9:47:00 EDT, Dosing Weight Start Date: 07/12/23 Status: Ordered Start: 03-02-2023 Insulin Glargi ne (Lantus Solostar U-100 Insulin) 100 unit/mL (3 mL) insulin pen Active 64 U SC DAILY March 02, 2023 11:38am Start: 01-10-2023 End: 03-02-2023 Insulin Glargine (Lantus Callie ostar U-100 Insulin) 100 unit/mL (3 mL) insulin pen Discontinued 30 U SC DAILY January 10, 2023 3:27pm March 02, 2023 11:39am Start: 08-04-2017 End: 01-10-2023 Insulin Glargine (Lantus Callie ostar U-100 Insulin) 100 unit/mL (3 mL) insulin pen Discontinued 63 U SC DAILY August 04, 2017 12:00am January 10, 2023 3:27pm Start: 08-04-2017 Insulin Glargi ne (Lantus Solostar U-100 Insulin) 100 unit/mL (3 mL) insulin pen Active 80 UNIT SC daily August 04, 2017 12:00am LORazepam 0.5 mg oral tablet (12 sources) Benzodiazepine Start: 07-23-2024 take 1 tablet by mouth twice daily as needed for anxiety Lorazepam (Ativan) 0.5 mg tablet Active 0.5 mg PO TWICE A DAY as needed for anxiety July 23, 2024 12:00am Start: 08-04-2017 take 1 tablet by fatemeh th once daily as needed for anxiety Lorazepam 1 mg tablet Active 1 mg PO DAILY as needed for Anxiety August 04, 2017 12:00am losartan potassium 100 mg oral tablet (20 sources) Angiotensin 2 Receptor Lisset Start: 10-15-2023 losartan 100 mg oral tablet Dose : 100 mg = 1 tab(s), Oral, Daily, # 90 tab(s), 1 Refill(s), Pharmacy: [facility], 166, cm, 10/15/23 9:35:00 EDT, Height, kg, 10/15/23 9:35:00 EDT, Dosing Weight Start Date: 10/15/23 Status: Ordered Quantity: 90.0 Unit: tab(s) Repeat number: 2 Start: 01-10-2023 End: 03-31-2023 losartan 100 mg oral tablet Dose : 100 mg = 1 tab(s), Oral, Daily, # 90 tab(s), 0 Refill(s), Pharmacy: [facility], 166, cm, 07/12/23 9:47:00 EDT, Height, kg, 07/12/23 9:47:00 EDT, Dosing Weight Start Date: 07/12/23 Status: Ordered Start: 01-05-2023 End: 01-10-2023 take 1 tablet by mouth once daily Losartan 50 mg tablet Discontinued 50 mg PO DAILY January 05, 2023 1:00am January 10, 2023 3:20pm Multivitamin preparation (5 sources) Start: 05-30-2019 take 1 tablet by mouth once daily Multivitamin Dose = 1 tab(s), Oral, Daily, 0 Refill(s) Start Date: 05/30/19 Status: Ordered Repeat number: 1 Start: 05-30-2019 take 1 tablet by fatemeh th once daily Multivitamin Dose = 1 tab(s), Oral, Daily, 0 Refill(s) Start Date: 05/30/19 Status: Ordered mupirocin 0.02 mg/mg topical ointment (1 source) RNA Synthetase Inhibitor Antibacterial Start: 07-12-2023 End: 07-19-2023 mupirocin 2% topical ointment Apply 1 pelon, Topical, TID, X 7 day(s), # 15 gram(s), 0 Refill(s), Pharmacy: [facility], Ointment, 166, cm, 07/12/23 9:47:00 [...] 0 Refill(s), 12/01/23 11:02:00 AM EDT, Pharmacy: [id number], Acute cystitis with hematuria, 167, cm, 11/24/23 10:37:00 EDT, Height, 148.6, kg, 11/24/23 10:37:00 EDT, Dosing Weight Start Date: 11/24/23 Stop Date: 12/01/23 Status: Ordered pioglitazone 30 mg oral tablet (13 sources) Peroxisome Proliferator Receptor alpha Agonist, Peroxisome Proliferator Receptor gamma Agonist, Thiazolidinedione Start: 10-15-2023 Actos 30 mg oral tablet Dose : 30 mg = 1 tab(s), Oral, Daily, # 90 tab(s), 1 Refill(s), Pharmacy: [facility], DM type 2, goal HbA1c Start Date: 10/15/23 Status: Ordered Quantity: 90.0 Unit: tab(s) Repeat number: 2 Indication: Type 2 diabetes mellitus without complications Start: 01-05-2023 Actos 30 mg or al tablet Dose : 30 mg = 1 tab(s), Oral, Daily, # 90 tab(s), 1 Refill(s), Pharmacy: [facility], DM type 2, goal HbA1c Start Date: 07/12/23 Status: Ordered 24 hr venlafaxine 150 mg extended release oral capsule (6 sources) Serotonin and Norepinephrine Reuptake Inhibitor Start: 07-23-2024 take 1 capsule by mouth once daily Venlafaxine 150 mg capsule,extended release 24hr Active 150 mg PO DAILY July 23, 2024 12:00am Start: 10-15-2023 Effexor XR 150 mg oral capsule, extended release Dose : 150 mg = 1 cap(s), Oral, qDay, # 90 cap(s), 1 Refill(s), Pharmacy: [facility], [place], 166, cm, 10/15/23 9:35:00 EDT, Height, kg, 10/15/23 9:35:00 EDT, Dosing Weight Start Date: 10/15/23 Status: Ordered Quantity: 90.0 Unit: cap(s) Repeat number: 2 Indication: Anxiety disorder, unspecified Start: 07-12-2023 Effexor XR 150 mg oral capsule, extended release Dose : 150 mg = 1 cap(s), Oral, qDay, # 90 cap(s), 1 Refill(s), Pharmacy: [facility], [place], 166, cm, 07/12/23 9:47:00 EDT, Height, kg, 07/12/23 9:47:00 EDT, Dosing Weight Start Date: 07/12/23 Status: Ordered vitamin B12 (7 sources) Vitamin B12 Start: 01-10-2023 take 2 tablets by mouth at breakfast Cyanocobalamin (Vitamin B-12) 500 mcg Tablet Active 1000 ug PO WITH BREAKFAST 60 January 10, 2023 1:00am Start: 01-10-2023 take 1000 ug by mout h at breakfast Cyanocobalamin (Vitamin B-12) Active 1000 MCG PO WITH BREAKFAST 60 January 10, 2023 1:00am Vitamin B12 500 mcg oral tab let (5 sources) Start: 07-12-2023 Vitamin B12 50 0 mcg oral tablet Dose : 1,000 mcg = 2 tab(s), Oral, qAM, With breakfast, # 180 tab(s), 1 Refill(s), Pharmacy: [facility], michael Perez, 07/12/23 9:47:00 EDT, Height, kg, 07/12/23 9:47:00 EDT, Dosing Weight Start Date: 07/12/23 Status: Ordered Quantity: 180.0 Unit: tab(s) Repeat number: 2 Start: 07-12-2023 Vitamin B12 50 0 mcg oral tablet Dose : 1,000 mcg = 2 tab(s), Oral, qAM, With breakfast, # 180 tab(s), 1 Refill(s), Pharmacy: [facility], [place], michael, 07/12/23 9:47:00 EDT, Height, kg, 07/12/23 9:47:00 EDT, Dosing Weight Start Date: 07/12/23 Status: Ordered Completed/Discontinued Medications Medication Drug Class(es) Dates Sig (Normalized) Sig (Original) Albuterol Sulfate 90 mcg/actuation HFA aerosol inhaler (1 source) Start: 08-04-2017 End: 02-11-2023 Albuterol Sulfate 90 mcg/actuation HFA aerosol inhaler Discontinued 2 NMA INHALATION EVERY 6 HOURS as needed for shortness of breath August 04, 2017 12:00am February 11, 2023 2:54pm amoxicillin 875 mg / clavulanate 125 mg oral tablet (7 sources) Penicillin-class Antibacterial Start: 01-10-2023 End: 02-11-2023 Amoxicillin-Pot Clavulanate 875-125 mg tablet Discontinued 1 {tbl} PO TWICE A DAY 10 January 10, 2023 1:00am February 11, 2023 2:54pm Start: 01-10-2023 End: 02-11-2023 take 1 tablet by mouth twice daily Amoxicillin-Pot Clavulanate Discontinued 1 TABLET PO TWICE A DAY 10 January 10, 2023 1:00am February 11, 2023 2:54pm apixaban 5 mg oral tablet (7 sources) Factor Xa Inhibitor Start: 01-30-2023 End: 02-11-2023 take 2 tablets by mouth twice daily, then take 1 tablet by mouth twice daily Apixaban (Eliquis) 5 mg tablet Discontinued 5 mg PO TWICE A DAY 60 January 30, 2023 1:00am February 11, 2023 3:07pm 10 mg twice a day for the first week. Then 5 mg twice a day. Start: 01-30-2023 End: 02-11-2023 take 1 tablet by mouth twice daily Apixaban (Eliquis) 5 mg tablet Discontinued 5 mg PO TWICE A DAY January 30, 2023 1:00am February 11, 2023 2:54pm aspirin 81 mg delayed release oral tablet (18 sources) Platelet Aggregation Inhibitor, Nonsteroidal Anti-inflammatory Drug Start: 01-10-2023 End: 02-11-2023 take 1 tablet by mouth at breakfast Aspirin 81 mg Tablet,Delayed Release (Dr/Ec) Discontinued 81 mg PO WITH BREAKFAST January 10, 2023 1:00am February 11, 2023 2:55pm Start: 08-03-2017 End: 01-05-2023 take 1 tablet by mouth once daily Aspirin (Adult Aspirin Regimen) 81 mg tablet,delayed release (DR/EC) Discontinued 81 mg PO daily August 03, 2017 12:00am January 05, 2023 2:13pm cephalexin 500 mg oral capsule (5 sources) Cephalosporin Antibacterial Start: 10-18-2023 End: 10-23-2023 cephalexin 500 mg oral capsule Dose : 500 mg = 1 cap(s), Oral, TID, # 15 cap(s), 0 Refill(s), Pharmacy: [id number], 166, cm, 10/15/23 9:35:00 EDT, Height, 153.4, kg, 10/15/23 9:35:00 EDT, Dosing Weight Start Date: 10/18/23 Stop Date: 10/23/23 Status: Ordered Start: 03-03-2023 End: 03-31-2023 take 1 capsule by mouth every six hours Cephalexin 500 mg capsule Discontinued 500 mg PO EVERY 6 HOURS March 03, 2023 1:00am March 31, 2023 11:32am cholecalciferol 0.125 mg oral capsule (7 sources) Vitamin D Start: 01-10-2023 End: 03-31-2023 take 1 capsule by mouth once daily Cholecalciferol (Vitamin D3) 125 mcg (5,000 unit) Capsule Discontinued 125 ug PO DAILY January 10, 2023 1:00am March 31, 2023 11:32am citalopram 40 mg oral tablet (20 sources) Serotonin Reuptake Inhibitor Start: 01-05-2023 End: 07-23-2024 take 1 tablet by mouth once daily Citalopram 40 mg tablet Discontinued 40 mg PO DAILY January 05, 2023 1:00am July 23, 2024 8:52pm Start: 08-04-2017 End: 01-05-2023 take 2 tablets by mouth once daily Citalopram 20 mg tablet Discontinued 40 mg PO daily August 04, 2017 10:58am January 05, 2023 2:05pm Start: 08-04-2017 End: 01-05-2023 take 40 mg by mouth once daily Citalopram Discontinued 40 MG PO daily August 04, 2017 10:58am January 05, 2023 2:05pm Start: 08-03-2017 End: 08-04-2017 take 1 tablet by mouth once daily Citalopram 20 mg tablet Discontinued 20 mg PO daily August 03, 2017 12:00am August 04, 2017 11:01am clopidogrel 75 mg oral tablet (11 sources) [id number] Platelet Inhibitor Start: 08-30-2017 End: 01-05-2023 take 1 tablet by mouth once daily Clopidogrel (Plavix) 75 mg tablet Discontinued 75 mg PO daily August 30, 2017 12:00am January 05, 2023 2:14pm fluconazole 150 mg oral tablet (14 sources) Azole Antifungal Start: 03-03-2023 End: 03-31-2023 take 1 tablet by mouth once daily Fluconazole 150 mg tablet Discontinued 150 mg PO DAILY March 03, 2023 1:00am March 31, 2023 11:32am Take a completion of your antibiotic course. Start: 08-03-2017 End: 08-03-2017 take 1 tablet by mouth once daily Fluconazole (Diflucan) 100 mg tablet Discontinued 100 mg PO daily August 03, 2017 12:00am August 03, 2017 12:37pm 60 actuat fluticasone propionate 0.05 mg/actuat dry powder inhaler (11 sources) Corticosteroid Start: 08-04-2017 End: 01-05-2023 take 50 ug by inhalation once daily Fluticasone Propionate (Flovent Diskus) 50 mcg/actuation blister with device Discontinued 1 NMA INHALATION daily August 04, 2017 12:00am January 05, 2023 2:14pm 3 ml insulin aspart, human 100 unt/ml pen injector (11 sources) Insulin Analog Start: 08-04-2017 End: 01-05-2023 Insulin Aspart U-100 (Novolog Flexpen U-100 Insulin) 100 unit/mL insulin pen Discontinued 26 U SC THREE TIMES A DAY August 04, 2017 12:00am January 05, 2023 2:16pm insulin, regular, human 100 unt/ml injectable solution (11 sources) Insulin Start: 08-03-2017 End: 08-04-2017 Insulin Regular Human (Humulin R Regular U-100 Insuln) 100 unit/mL solution Discontinued 10 U SC EVERY MORNING August 03, 2017 12:00am August 04, 2017 10:59am lisinopril 40 mg oral tablet (11 sources) Angiotensin Converting Enzyme Inhibitor Start: 08-03-2017 End: 01-05-2023 take 1 tablet by mouth once daily Lisinopril 40 mg tablet Discontinued 40 mg PO DAILY August 03, 2017 12:00am January 05, 2023 2:46pm meclizine hydrochloride 12.5 mg oral tablet (11 sources) Antiemetic Start: 08-03-2017 End: 08-03-2017 take 1 tablet by mouth three times daily as needed Meclizine 12.5 mg tablet Discontinued 12.5 mg PO THREE TIMES A DAY as needed August 03, 2017 12:00am August 03, 2017 12:37pm 24 hr metoprolol succinate 50 mg extended release oral tablet (9 sources) beta-Adrenergic Lisset Start: 01-10-2023 End: 07-23-2024 take 1 tablet by mouth once daily Metoprolol Succinate 50 mg tablet extended release 24 hr Discontinued 50 mg PO DAILY March 31, 2023 12:18pm July 23, 2024 8:51pm rivaroxaban 20 mg oral tablet (7 sources) Factor Xa Inhibitor Start: 02-11-2023 End: 07-23-2024 take 1 tablet by mouth once daily at dinner Rivaroxaban (Xarelto) 20 mg tablet Discontinued 20 mg PO DAILY February 11, 2023 1:00am July 23, 2024 8:52pm must administer with evening meal traMADol hydrochloride 50 mg oral tablet (3 sources) Opioid Agonist Start: 03-03-2023 End: 06-22-2023 take 1 tablet by mouth every six hours as needed for pain Tramadol 50 mg tablet Discontinued 50 mg PO EVERY 6 HOURS as needed for pain March 03, 2023 1:00am June 22, 2023 9:04am Problems Active Problems Problem Classification Problem Date Documented Da te Episodic/Chronic Acute and unspecified renal failure (9 sources) Injury of kidney; Translations: [Acute kidney failure, unspecified] 09-27-2022 Episodic Acute myocardial infarction (19 sources) Myocardial infarction; Translations: [Non-ST elevation (NSTEMI) myocardial infarction] 01-05-2023 Chronic Administrative/social admission (1 source) Counseling procedure with explicit context; Translations: [Dietary counseling and surveillance] Episodic Anxiety disorders (6 sources) Anxiety; Translations: [Anxiety disorder, unspecified] 11-24-2021 Chronic Cardiac dysrhythmias (20 sources) Paroxysmal atrial fibrillation; Translations: [Paroxysmal atrial fibrillation] Onset: 02-07-2024 08-03-2017 Chronic Chronic kidney disease (5 sources) Chronic kidney disease stage 3 10-20-2022 Chronic Chronic kidney disease (2 sources) Chronic kidney disease; Translations: [Chronic kidney disease, stage 3 unspecified] Onset: 07-12-2023 Congestive heart failure; nonhypertensive (1 source) Congestive heart failure; Translations: [Heart failure, unspecified] 07-23-2024 Chronic Coronary atherosclerosis and other heart disease (17 sources) Coronary atherosclerosis; Translations: [Atherosclerotic heart disease of [place] coronary artery without angina pectoris] Onset: 01-05-2023 01-07-2023 Chronic Comment on above: Single vessel diseas e in OM, no PCI. Deficiency and other anemia (7 sources) Anemia; Translations: [Anemia, unspecified] 03-31-2023 Episodic Deficiency and other anemia (1 source) Anemia, unspecified; Translations: [Anemia, unspecified] 03-31-2023 Episodic Diabetes mellitus with complications (1 source) Type 2 diabetes mellitus with hyperglycemia; Translations: [Type 2 diabetes mellitus with hyperglycemia] Onset: 11-21-2024 Chronic Diabetes mellitus without complication (15 sources) Diabetes mellitus; Translations: [Type 2 diabetes mellitus] Onset: 07-12-2023 10-20-2022 Chronic Diabetes mellitus without complication (9 sources) Acute hyperglycemia; Translations: [Hyperglycemia, unspecified] 09-27-2022 Episodic Disorders of lipid metabolism (5 sources) Hyperlipidemia 10-20-2022 Chronic Essential hypertension (20 sources) Essential hypertension; Translations: [Essential (primary) hypertension] Onset: 07-12-2023 08-08-2018 Chronic Fluid and electrolyte disorders (9 sources) Dehydration; Translations: [Dehydration] 09-27-2022 Episodic Headache; [...] for age. 4. Mild tricuspid valve insufficiency Malaise and fatigue (1 source) Fatigue; Translations: [Other fatigue] 06-22-2023 Episodic Nonmalignant breast conditions (1 source) Disorder of breast 07-12-2023 Episodic Nonspecific chest pain (20 sources) Chest pain; Translations: [Chest pain, unspecified] 08-08-2018 Episodic Nutritional deficiencies (5 sources) Vitamin D deficiency 11-18-2021 Chronic Other aftercare (1 source) Long-term current use of insulin; Translations: [intermediate (current) use of insulin] Episodic Other aftercare (1 source) Drug monitoring done; Translations: [Encounter for therapeutic drug level monitoring] Episodic Other aftercare (1 source) intermediate (current) use of insulin; Translations: [intermediate (current) use of insulin] Onset: 11-21-2024 Episodic Other eye disorders (9 sources) Vitreous floaters; Translations: [Other vitreous opacities, left eye] 09-27-2022 Chronic Other lower respiratory disease (9 sources) Dyspnea; Translations: [Dyspnea, unspecified] 01-05-2023 Episodic Other lower respiratory disease (6 sources) Dyspnea, unspecified; Translations: [Other respiratory abnormalities] 01-05-2023 Episodic Other lower respiratory disease (8 sources) Dyspnea on exertion; Translations: [Other forms of dyspnea] 03-02-2023 Episodic Other lower respiratory disease (3 sources) Other forms of dyspnea; Translations: [Other respiratory abnormalities] 03-02-2023 Episodic Other nutritional; endocrine; and metabolic disorders (16 sources) Morbid obesity; Translations: [Morbid (severe) obesity [...] of other cardiovascular function study] 08-08-2018 Episodic Pleurisy; pneumothorax; pulmonary collapse (11 sources) Bilateral pleural effusion; Translations: [Pleural effusion, not elsewhere classified] 01-05-2023 Episodic Pneumonia (except that caused by tuberculosis or sexually transmitted disease) (14 sources) Community acquired pneumonia; Translations: [Pneumonia, unspecified organism] 01-05-2023 Episodic Pulmonary heart disease (6 sources) [...] apnea syndrome 08-18-2021 Chronic Residual codes; unclassified (4 sources) Bilateral lower limb edema; Translations: [Localized [...] of medication regimen for other reason] Episodic Respiratory failure; insufficiency; arrest (adult) (14 sources) Acute respiratory failure; Translations: [Acute respiratory failure with hypoxia] 01-05-2023 Episodic Skin and subcutaneous tissue infections (3 sources) Cellulitis; Translations: [Cellulitis, unspecified] 03-03-2023 Episodic Spondylosis; intervertebral disc disorders; other back problems (5 sources) Backache; Translations: [Dorsalgia, unspecified] 01-24-2023 Episodic Sprains and strains (20 sources) Low back strain; Translations: [Strain of muscle, fascia and tendon of lower back, initial encounter] 10-06-2018 Episodic Superficial injury; contusion (11 sources) Contusion of lower back; Translations: [Contusion of lower back and pelvis, initial encounter] 10-06-2018 Episodic Syncope (9 sources) Near syncope; Translations: [Syncope and collapse] 09-27-2022 Episodic Unclassified (5 sources) Non-smoker 11-18-2021 Unclassified (9 sources) Patient encounter status 07-12-2023 Past or Other Problems Problem Classification Problem Date Documented Da te Episodic/Chronic Genitourinary symptoms and ill-defined conditions (2 sources) Dysuria; Translations: [Dysuria] Onset: 10-15-2023 Episodic Other connective tissue disease (1 source) Other specified soft tissue disorders; Translations: [Other specified soft tissue disorders] Onset: 02-07-2024 Episodic Other lower respiratory disease (2 sources) Shortness of breath; Translations: [Shortness of breath] Onset: 02-07-2024 Episodic Zuri-; endo-; and myocarditis; cardiomyopathy (except that caused by tuberculosis or sexually transmitted disease) (20 sources) Pericardial effusion; Translations: [Pericardial effusion (noninflammatory)] Onset: 02-08-2014 08-03-2017 Episodic Urinary tract infections (2 sources) Acute cystitis with hematuria; Translations: [Acute cystitis with hematuria] Onset: 11-24-2023 Episodic Results Test Name Value Interpretation Reference Range Facility CBC W/Diff, Automatedon 11-08 Absolute Lymph 1.78 X10 3/uL Normal 0.83-4.51 [facility] Comment on above: Performed By: #### L 503.6345, L506.0400, L501.9985, L502.0250, L501.5200, L501.9520, L500.4050, L100.0100, L500.4100 #### [facility] [address] [place], [place], [id number] (824) Absolute Neut 8.5 X10 3/uL High 2.0-7.7 [facility] Comment on above: Performed By: #### L 503.7505, L506.0400, L501.9985, L502.0250, L501.5200, L501.9520, L500.4050, L100.0100, L500.4100 #### [facility] [address] [place], [place], [id number] (413) Basophils/100 WBC (Bld) 0.5 % Normal 0-1 [facility] Comment on above: Performed By: #### L 503.7505, L506.0400, L501.9985, L502.0250, L501.5200, L501.9520, L500.4050, L100.0100, L500.4100 #### [facility] [address] [place], [place], [id number] (851) Eosinophils/100 WBC (Bld) 1.4 % Normal 0-5 [facility] Comment on above: Performed By: #### L 503.7505, L506.0400, L501.9985, L502.0250, L501.5200, L501.9520, L500.4050, L100.0100, L500.4100 #### [facility] [address] [place], [address] Erythrocyte distribution width (RBC) [Ratio] 13.4 % Normal 11.6-14.6 [facility] Comment on above: Performed By: #### L 503.7505, L506.0400, L501.9985, L502.0250, L501.5200, L501.9520, L500.4050, L100.0100, L500.4100 #### [facility] [address] [place], [address] Hematocrit (Bld) [Volume fraction] 33.7 % Low 37-47 [facility] Comment on above: Performed By: #### L 503.7505, L506.0400, L501.9985, L502.0250, L501.5200, L501.9520, L500.4050, L100.0100, L500.4100 #### [facility] [address] [place], [address] Hemoglobin (Bld) [Mass/Vol] 10.9 g/dL Low 12.0-15.0 [facility] Comment on above: Performed By: #### L 503.7505, L506.0400, L501.9985, L502.0250, L501.5200, L501.9520, L500.4050, L100.0100, L500.4100 #### [facility] [address] [facility] [address] [place], [place], [phone] (456) IG% 0.300 Normal 0.0-0.9 [facility] Comment on above: Result Comment: IG% - Immature Granulocytes (promyelocytes, myelocytes and metamyelocytes) > 1% indicates that a LEFT SHIFT is Present. Performed By: #### L 503.7505, L506.0400, L501.9985, L502.0250, L501.5200, L501.9520, L500.4050, L100.0100, L500.4100 #### [facility] [address] [place], [address] Lymphocytes/100 WBC (Bld) 15.8 % Low 19-41 [facility] Comment on above: Performed By: #### L 503.7505, L506.0400, L501.9985, L502.0250, L501.5200, L501.9520, L500.4050, L100.0100, L500.4100 #### [facility] [address] [facility] [place], [address] MCH (RBC) [Entitic mass] 28.2 pg Normal 27.0-32.0 [facility] Comment on above: Performed By: #### L 503.7505, L506.0400, L501.9985, L502.0250, L501.5200, L501.9520, L500.4050, L100.0100, L500.4100 #### [facility] [address] [place], [address] MCHC (RBC) [Mass/Vol] 32.3 g/dL Normal 32-36 [facility] Comment on above: Performed By: #### L 503.7505, L506.0400, L501.9985, L502.0250, L501.5200, L501.9520, L500.4050, L100.0100, L500.4100 #### [facility] [address] [place], [address] MCV (RBC) [Entitic vol] 87.1 fL Normal 81-99 [facility] Comment on above: Performed By: #### L 503.7505, L506.0400, L501.9985, L502.0250, L501.5200, L501.9520, L500.4050, L100.0100, L500.4100 #### [facility] [address] [place], [address] Monocytes/100 WBC (Bld) 6.9 % Normal 0-10 [facility] Comment on above: Performed By: #### L 503.7505, L506.0400, L501.9985, L502.0250, L501.5200, L501.9520, L500.4050, L100.0100, L500.4100 #### [facility] [address] [place], [address] Neutrophils/100 WBC (Bld) 75.1 % High 47-70 [facility] Comment on above: Performed By: #### L 503.7505, L506.0400, L501.9985, L502.0250, L501.5200, L501.9520, L500.4050, L100.0100, L500.4100 #### [facility] [address] [place], [address] Nucleated RBC (Bld) [#/Vol] 0 10*3/uL Normal 0-5 [facility] Comment on above: Performed By: #### L 503.7505, L506.0400, L501.9985, L502.0250, L501.5200, L501.9520, L500.4050, L100.0100, L500.4100 #### [facility] [address] [place], [place], [phone] (368) Platelet mean volume (Bld) [Entitic vol] 10.4 fL Normal 6.2-12.0 [facility] Comment on above: Performed By: #### L 503.7505, L506.0400, L501.9985, L502.0250, L501.5200, L501.9520, L500.4050, L100.0100, L500.4100 #### [facility] [address] [place], [place], [phone] (310) Platelets (Bld) [#/Vol] 318 10*3/uL Normal 150-450 [facility] Comment on above: Performed By: #### L 503.7505, L506.0400, L501.9985, L502.0250, L501.5200, L501.9520, L500.4050, L100.0100, L500.4100 #### [facility] [address] [place], [address] RBC (Bld) [#/Vol] 3.87 10*6/uL Low 4.2-5.4 [facility] Comment on above: Performed By: #### L 503.7505, L506.0400, L501.9985, L502.0250, L501.5200, L501.9520, L500.4050, L100.0100, L500.4100 #### [facility] [address] [place], [address] RDW SD 42.5 fl Normal 35.1-43.9 [facility] Comment on above: Performed By: #### L 503.7505, L506.0400, L501.9985, L502.0250, L501.5200, L501.9520, L500.4050, L100.0100, L500.4100 #### [facility] [address] [place], [address] WBC (Bld) [#/Vol] 11.3 10*3/uL High 4.4-11.0 [facility] Comment on above: Performed By: #### L 503.7505, L506.0400, L501.9985, L502.0250, L501.5200, L501.9520, L500.4050, L100.0100, L500.4100 #### [facility] [address] [facility] [place], [address] Comprehensive Metabolic Prof ilon 11-21-2024 Albumin [Mass/Vol] 3.5 g/dL Normal 3.4-4.8 [facility] Comment on above: Performed By: #### L 503.7505, L506.0400, L501.9985, L502.0250, L501.5200, L501.9520, L500.4050, L100.0100, L500.4100 #### [facility] [address] [place], [address] Albumin/Globulin [Mass ratio] 1.0 {ratio} Normal 0.9-2.4 [facility] Comment on above: Performed By: #### L 503.7505, L506.0400, L501.9985, L502.0250, L501.5200, L501.9520, L500.4050, L100.0100, L500.4100 #### [facility] [address] [place], [place], [phone] (154) ALK PHOS 116 U/L High 35-104 [facility] Comment on above: Performed By: #### L 503.7505, L506.0400, L501.9985, L502.0250, L501.5200, L501.9520, L500.4050, L100.0100, L500.4100 #### [facility] [address] [place], [place], [id number] ALT [Catalytic activity/Vol] 22 U/L Normal <=34 [facility] Comment on above: Performed By: #### L 503.7505, L506.0400, L501.9985, L502.0250, L501.5200, L501.9520, L500.4050, L100.0100, L500.4100 #### [facility] [address] [place], [place], [id number] AST [Catalytic activity/Vol] 18 U/L Normal <=31 [facility] Comment on above: Performed By: #### L 503.7505, L506.0400, L501.9985, L502.0250, L501.5200, L501.9520, L500.4050, L100.0100, L500.4100 #### [facility] [address] [place], [address] Bilirubin [Mass/Vol] 0.28 mg/dL Normal 0.00-1.30 [facility] Comment on above: Performed By: #### L 503.7505, L506.0400, L501.9985, L502.0250, L501.5200, L501.9520, L500.4050, L100.0100, L500.4100 #### [facility] [address] [place], [address] BUN/CRE 20.3 RATIO High 10-20 [facility] Comment on above: Performed By: #### L 503.7505, L506.0400, L501.9985, L502.0250, L501.5200, L501.9520, L500.4050, L100.0100, L500.4100 #### [facility] [address] [place], [address] Calcium [Mass/Vol] 8.9 mg/dL Normal 7.6-11.0 [facility] Comment on above: Performed By: #### L 503.7505, L506.0400, L501.9985, L502.0250, L501.5200, L501.9520, L500.4050, L100.0100, L500.4100 #### [facility] [address] [place], [address] Chloride [Moles/Vol] 97 mmol/L Low 98-108 [facility] Comment on above: Performed By: #### L 503.7505, L506.0400, L501.9985, L502.0250, L501.5200, L501.9520, L500.4050, L100.0100, L500.4100 #### [facility] [address] [place], [address] CO2 [Moles/Vol] 25.3 mmol/L Normal 21.0-32.0 [facility] Comment on above: Performed By: #### L 503.7505, L506.0400, L501.9985, L502.0250, L501.5200, L501.9520, L500.4050, L100.0100, L500.4100 #### [facility] [address] [place], [address] Creatinine [Mass/Vol] 1.42 mg/dL High 0.70-1.20 [facility] Comment on above: Performed By: #### L 503.7505, L506.0400, L501.9985, L502.0250, L501.5200, L501.9520, L500.4050, L100.0100, L500.4100 #### [facility] [address] [place], [address] GAP 10 Normal 5-15 [facility] Comment on above: Performed By: #### L 503.7505, L506.0400, L501.9985, L502.0250, L501.5200, L501.9520, L500.4050, L100.0100, L500.4100 #### [facility] [address] [place], [address] GFR/1.73 sq M.predicted among non-blacks MDRD (S/P/Bld) [Vol rate/Area] 42 mL/min/{1.73_m2} Low >60 [facility] Comment on above: Result Comment: mL/m in/1.73m2 CKD-EPI Creatinine Equation (2020) Performed By: #### L 503.7505, L506.0400, L501.9985, L502.0250, L501.5200, L501.9520, L500.4050, L100.0100, L500.4100 #### [facility] [address] [place], [address] (857) Globulin (S) [Mass/Vol] 3.4 g/dL Normal 2.2-4.2 [facility] Comment on above: Performed By: #### L 503.7505, L506.0400, L501.9985, L502.0250, L501.5200, L501.9520, L500.4050, L100.0100, L500.4100 #### [facility] [address] [place], [address] Glucose [Mass/Vol] 383 mg/dL High 70-99 [facility] Comment on above: Performed By: #### L 503.7505, L506.0400, L501.9985, L502.0250, L501.5200, L501.9520, L500.4050, L100.0100, L500.4100 #### [facility] [address] [place], [address] Potassium [Moles/Vol] 5.2 mmol/L High 3.3-5.1 [facility] Comment on above: Performed By: #### L 503.7505, L506.0400, L501.9985, L502.0250, L501.5200, L501.9520, L500.4050, L100.0100, L500.4100 #### [facility] [address] [place], [address] Sodium [Moles/Vol] 132 mmol/L Low 133-145 [facility] Comment on above: Performed By: #### L 503.7505, L506.0400, L501.9985, L502.0250, L501.5200, L501.9520, L500.4050, L100.0100, L500.4100 #### [facility] [address] [place], [address] T PROT 6.9 g/dL Normal 5.9-8.4 [facility] Comment on above: Performed By: #### L 503.7505, L506.0400, L501.9985, L502.0250, L501.5200, L501.9520, L500.4050, L100.0100, L500.4100 #### [facility] [address] [place], [address] Urea nitrogen [Mass/Vol] 29 mg/dL High 4-19 [facility] Comment on above: Performed By: #### L 503.7505, L506.0400, L501.9985, L502.0250, L501.5200, L501.9520, L500.4050, L100.0100, L500.4100 #### [facility] [address] [place], [place], [address] Hemoglobin A1con 11-21-2024 HbA1c (Bld) [Mass fraction] 9.6 % High <=5.6 [facility] Comment on above: Result Comment: Norm al < 5.7 % Prediabetic 5.7 - 6.4 % Diabetic >or= 6.5 % Please note range changes. Performed By: #### L 503.7505, L506.0400, L501.9985, L502.0250, L501.5200, L501.9520, L500.4050, L100.0100, L500.4100 #### [facility] [address] [place], [place], [id number] Lipid Profileon 11-21-2024 CHOL:HDL 2.65 Normal [facility] Comment on above: Performed By: #### L 503.7505, L506.0400, L501.9985, L502.0250, L501.5200, L501.9520, L500.4050, L100.0100, L500.4100 #### [facility] [address] [place], [place], [address] Cholesterol [Mass/Vol] 155 mg/dL Normal <=200 [facility] Comment on above: Result Comment: Chol esterol level, Desirable <200 mg/dL Borderline high cholesterol 200-239 mg/dL High cholesterol >=240 mg/dL Recommendations of the NCEP Adult Treatment Panel for the following risk-cutoff thresholds for the [place] population. Performed By: #### L 503.7505, L506.0400, L501.9985, L502.0250, L501.5200, L501.9520, L500.4050, L100.0100, L500.4100 #### [facility] [address] [place], [address] Cholesterol in HDL [Mass/Vol] 59 mg/dL Normal [facility] Comment on above: Result Comment: Summer onal Cholesterol Education Program (NCEP) guidelines: <40 mg/dL: Low HDL-cholesterol (major risk factor for CHD) >= 60 mg/dL: High HDL-cholesterol (negative risk factor for CHD) HDL-cholesterol is affected by a number of factors, e.g. smoking, exercise, hormones, sex and age. Performed By: #### L 503.7505, L506.0400, L501.9985, L502.0250, L501.5200, L501.9520, L500.4050, L100.0100, L500.4100 #### [facility] [address] [place], [address] Cholesterol in LDL [Mass/Vol] 82 mg/dL Normal [facility] Comment on above: Result Comment: Bord obokyh=887-620 mg/dL Higher Mzvd=799 mg/dL or greater Friedwald Equation for LDL-C Performed By: #### L 503.7505, L506.0400, L501.9985, L502.0250, L501.5200, L501.9520, L500.4050, L100.0100, L500.4100 #### [facility] [address] [place], [address] Cholesterol in VLDL [Mass/Vol] 15 mg/dL Normal 5-40 [facility] Comment on above: Performed By: #### L 503.7505, L506.0400, L501.9985, L502.0250, L501.5200, L501.9520, L500.4050, L100.0100, L500.4100 #### [facility] [address] [place], [address] Triglyceride [Mass/Vol] 74 mg/dL Normal [facility] Comment on above: Result Comment: The drugs N-Acetylcysteine and Metamizole may falsely depress this assay. Normal range: <150 mg/dL Borderline High: 150-199 mg/dL High: 200-499 mg/dL Very High: >500 mg/dL Performed By: #### L 503.7505, L506.0400, L501.9985, L502.0250, L501.5200, L501.9520, L500.4050, L100.0100, L500.4100 #### [facility] [address] [place], [address] Magnesiumon 11-21-2024 Magnesium [Mass/Vol] 1.7 mg/dL Normal 1.5-2.2 [facility] Comment on above: Performed By: #### L 503.7505, L506.0400, L501.9985, L502.0250, L501.5200, L501.9520, L500.4050, L100.0100, L500.4100 ####[facility] [address] [place], [address] Microalb:Creat Ratio,Random URon 11-21-2024 MALB:CREAT 909.2 mg/g CRE High <30 mg/g CRE [facility] Comment on above: Performed By: #### L 503.7505, L506.0400, L501.9985, L502.0250, L501.5200, L501.9520, L500.4050, L100.0100, L500.4100 #### [facility] [address] [place], [address] MICROALBUMIN,UR 791.0 mg/L Normal <20 mg/L [facility] Comment on above: Performed By: #### L 503.7505, L506.0400, L501.9985, L502.0250, L501.5200, L501.9520, L500.4050, L100.0100, L500.4100 #### [facility] [address] [place], [address] Pro- Brain NATRIURETIC PEPTI Romel 11-21-2024 Natriuretic peptide B (Bld) [Mass/Vol] 638 pg/mL Normal <=900 [facility] Comment on above: Result Comment: Hear t Failure Unlikely: < 300 pg/mL Heart Failure Likely < 50 Years: > 450 pg/mL 50-75 Years: > 900 pg/mL >75 Years: > 1800 pg/mL Performed By: #### L 503.7505, L506.0400, L501.9985, L502.0250, L501.5200, L501.9520, L500.4050, L100.0100, L500.4100 ####[facility] [address] [place], [address] T4 Free Directon 11-21-2024 T4 FREE DIRECT 1.20 ng/dL Normal 0.76-1.46 [facility] Comment on above: Performed By: #### L 503.7505, L506.0400, L501.9985, L502.0250, L501.5200, L501.9520, L500.4050, L100.0100, L500.4100 ####[facility] [address] [place], [place], [id number] Thyroid Stim Hormone (TSH)on 11-21-2024 TSH 2.060 uIU/mL Normal 0.300-4.200 [facility] Comment on above: Performed By: #### L 503.7505, L506.0400, L501.9985, L502.0250, L501.5200, L501.9520, L500.4050, L100.0100, L500.4100 ####[facility] [address] [place], [address] 12 Lead EKGon 07-23-2024 12 Lead EKG [facility] [address] [place] [address] 12 Lead EKG 07/23/242120 MR#: [id number] Acct: [id number] Name: SHADE IBARRA Rep #: [id number] : 1965 59 From: Kirk Ford MD Attending Dr: Status: DEP ER Ordering Dr: Harjit Vee DO Date: 07/23/24 Location: ED Sex: F C Admitted: Test Reason : DYSRHYTHMIA Blood Pressure : */* mmHG Vent. Rate : 87 BPM Atrial Rate : 87 BPM P-R Int : 178 ms QRS Dur : 84 ms QT Int : 386 ms P-R-T Axes : 58 40 84 degrees QTcB Int : 464 ms Sinus rhythm with Premature atrial complexes Otherwise normal ECG Confirmed by TAMRA ORDOÑEZ, KIRK ([id number]), design editor MK SEYMOUR ([id number]) on 07/25/2024 7:37:31 AM Referred By: Confirmed By: KIRK FORD MD 07/25/24 0737 Date Kirk Ford MD CC: STILL TENDER-C Pato Mccall; Dr. Harjit Vee DO Signed Normal [facility] Absolute lymphocyte countOrd ered By: Harjit Vee on 07-23-2024 Lymphocytes Auto (Unsp spec) [#/Vol] 2.47 10*3/uL 0.83-4.51 [facility] Absolute neutrophil countOrd ered By: Harjit Vee on 07-23-2024 Neutrophils (Bld) [#/Vol] 8.0 10*3/uL High 2.0-7.7 [facility] Anion gap in Serum or Plasma Ordered By: Harjit Vee on 07-23-2024 Anion gap [Moles/Vol] 13 mmol/L 06-22 [facility] Automated lymphocyte count a s percentage of total leukocytesOrdered By: Harjit Vee on 07-23-2024 Lymphocytes/100 WBC Auto (Unsp spec) 21.2 % - [facility] BUN/creatinine ratioOrdered By: Hrajit Vee on 07-23-2024 Urea nitrogen/Creatinine [Mass ratio] 24.2 mg/mg High 10-20 [facility] Basic Metabolic Profile (BMP )on 07-23-2024 BUN/CRE 24.2 RATIO High - [facility] Comment on above: Performed By: #### L 500.3400, L503.7505, L100.0100, L500.2500 ####[facility] [address] [place], [address] Calcium [Mass/Vol] 8.8 mg/dL Normal 7.6-11.0 [facility] Comment on above: Performed By: #### L 500.3400, L503.7505, L100.0100, L500.2500 ####[facility] [address] [place], [address] Chloride [Moles/Vol] 97 mmol/L Low 98-108 [facility] Comment on above: Performed By: #### L 500.3400, L503.7505, L100.0100, L500.2500 ####[facility] [address] [place], [address] CO2 [Moles/Vol] 22.8 mmol/L Normal 21.0-32.0 [facility] Comment on above: Performed By: #### L 500.3400, L503.7505, L100.0100, L500.2500 ####[facility] [address] [place], [address] Creatinine [Mass/Vol] 1.00 mg/dL Normal 0.70-1.20 [facility] Comment on above: Performed By: #### L 500.3400, L503.7505, L100.0100, L500.2500 ####[facility] [address] [place], [address] ECRCL 88.86 ml/min Normal 50-250 [facility] Comment on above: Performed By: #### L 500.3400, L503.7505, L100.0100, L500.2500 ####[facility] [address] [place], [address] GAP 13 Normal 5-15 [facility] Comment on above: Performed By: #### L 500.3400, L503.7505, L100.0100, L500.2500 ####[facility] [address] [place], [address] GFR/1.73 sq M.predicted among non-blacks MDRD (S/P/Bld) [Vol rate/Area] 64 mL/min/{1.73_m2} Normal >60 [facility] Comment on above: Result Comment: mL/m in/1.73m2 CKD-EPI Creatinine Equation (2020) Performed By: #### L 500.3400, L503.7505, L100.0100, L500.2500 ####[facility] [address] [place], [address] Glucose [Mass/Vol] 400 mg/dL High 70-99 [facility] Comment on above: Performed By: #### L 500.3400, L503.7505, L100.0100, L500.2500 ####[facility] [address] [place], [address] Potassium [Moles/Vol] 4.5 mmol/L Normal 3.3-5.1 [facility] Comment on above: Performed By: #### L 500.3400, L503.7505, L100.0100, L500.2500 ####[facility] [address] [place], [address] Sodium [Moles/Vol] 133 mmol/L Normal 133-145 [facility] Comment on above: Performed By: #### L 500.3400, L503.7505, L100.0100, L500.2500 ####[facility] [address] [place], [address] Urea nitrogen [Mass/Vol] 24 mg/dL High 4-19 [facility] Comment on above: Performed By: #### L 500.3400, L503.7505, L100.0100, L500.2500 ####[facility] [address] [place], [address] Basophil percentageOrdered B y: Harjit Vee on 07-23-2024 Basophils/100 WBC (Bld) 0.7 % 0-1 [facility] Bilirubin Test strip Ql (U)O rdered By: Harjit Vee on 07-23-2024 Bilirubin Ql (U) Negative Negative [facility] Bilirubin directOrdered By: Harjit Vee on 07-23-2024 Bilirubin.direct [Mass/Vol] 0.13 mg/dL 0.00-0.30 [facility] Bilirubin, totalOrdered By: Harjit Vee on 07-23-2024 Bilirubin [Mass/Vol] 0.35 mg/dL 0.00-1.30 [facility] CBC W/Diff, Automatedon 07-09 Absolute Lymph 2.47 X10 3/uL Normal 0.83-4.51 [facility] [facility] Comment on above: Performed By: #### L 500.3400, L503.7505, L100.0100, L500.2500 ####[facility] [address] [place], [address] Absolute Neut 8.0 X10 3/uL High 2.0-7.7 [facility] Comment on above: Performed By: #### L 500.3400, L503.7505, L100.0100, L500.2500 ####[facility] [address] [place], [address] Basophils/100 WBC (Bld) 0.7 % Normal 0-1 [facility] Comment on above: Performed By: #### L 500.3400, L503.7505, L100.0100, L500.2500 ####[facility] [address] [place], [address] Eosinophils/100 WBC (Bld) 1.9 % Normal 0-5 [facility] Comment on above: Performed By: #### L 500.3400, L503.7505, L100.0100, L500.2500 ####[facility] [address] [place], [address] Erythrocyte distribution width (RBC) [Ratio] 12.6 % Normal 11.6-14.6 [facility] Comment on above: Performed By: #### L 500.3400, L503.7505, L100.0100, L500.2500 ####[facility] [address] [place], [address] Hematocrit (Bld) [Volume fraction] 30.7 % Low 37-47 [facility] Comment on above: Performed By: #### L 500.3400, L503.7505, L100.0100, L500.2500 ####[facility] [address] [place], [address] Hemoglobin (Bld) [Mass/Vol] 10.1 g/dL Low 12.0-15.0 [facility] Comment on above: Performed By: #### L 500.3400, L503.7505, L100.0100, L500.2500 ####[facility] [address] [place], [address] IG% 0.300 Normal 0.0-0.9 [facility] Comment on above: Result Comment: IG% - Immature Granulocytes (promyelocytes, myelocytes and metamyelocytes) > 1% indicates that a LEFT SHIFT is Present. Performed By: #### L 500.3400, L503.7505, L100.0100, L500.2500 ####[facility] [address] [place], [address] Lymphocytes/100 WBC (Bld) 21.2 % Normal 19-41 [facility] Comment on above: Performed By: #### L 500.3400, L503.7505, L100.0100, L500.2500 ####[facility] [address] [place], [address] MCH (RBC) [Entitic mass] 28.5 pg Normal 27.0-32.0 [facility] Comment on above: Performed By: #### L 500.3400, L503.7505, L100.0100, L500.2500 ####[facility] [address] [place], [address] MCHC (RBC) [Mass/Vol] 32.9 g/dL Normal 32-36 [facility] Comment on above: Performed By: #### L 500.3400, L503.7505, L100.0100, L500.2500 ####[facility] [address] [place], [address] MCV (RBC) [Entitic vol] 86.5 fL Normal 81-99 [facility] Comment on above: Performed By: #### L 500.3400, L503.7505, L100.0100, L500.2500 ####[facility] [address] [place], [address] Monocytes/100 WBC (Bld) 7.5 % Normal 0-10 [facility] Comment on above: Performed By: #### L 500.3400, L503.7505, L100.0100, L500.2500 ####[facility] [address] [place], [address] Neutrophils/100 WBC (Bld) 68.4 % Normal 47-70 [facility] Comment on above: Performed By: #### L 500.3400, L503.7505, L100.0100, L500.2500 ####[facility] [address] [place], [address] Nucleated RBC (Bld) [#/Vol] 0 10*3/uL Normal 0-5 [facility] Comment on above: Performed By: #### L 500.3400, L503.7505, L100.0100, L500.2500 ####[facility] [address] [place], [address] Platelet mean volume (Bld) [Entitic vol] 9.5 fL Normal 6.2-12.0 [facility] Comment on above: Performed By: #### L 500.3400, L503.7505, L100.0100, L500.2500 ####[facility] [address] [place], [address] Platelets (Bld) [#/Vol] 343 10*3/uL Normal 150-450 [facility] Comment on above: Performed By: #### L 500.3400, L503.7505, L100.0100, L500.2500 ####[facility] [address] [place], [address] RBC (Bld) [#/Vol] 3.55 10*6/uL Low 4.2-5.4 [facility] Comment on above: Performed By: #### L 500.3400, L503.7505, L100.0100, L500.2500 ####[facility] [address] [place], [address] RDW SD 40.1 fl Normal 35.1-43.9 [facility] Comment on above: Performed By: #### L 500.3400, L503.7505, L100.0100, L500.2500 ####[facility] [address] [place], [address] WBC (Bld) [#/Vol] 11.6 10*3/uL High 4.4-11.0 [facility] Comment on above: Performed By: #### L 500.3400, L503.7505, L100.0100, L500.2500 ####[facility] [address] [place], [address] Carbon dioxide, total [Moles /volume] in Central venous bloodOrdered By: Harjit Vee on 07-23-2024 CO2 [Moles/Vol] 22.8 mmol/L 21.0-32.0 [facility] Chest 1 View (Portable)on Chest 1 View (Portable) [facility] Imaging Services [address] [place] [address] Chest 1 View (Portable) MR#: [id number] Acct: [id number] Name: SHADE IBARRA Rep #: [id number] : 1965 F 59 From: Pierre Rangel PCP: MARSHALL MalcolmC Status: REG ER Study: Chest 1 View (Portable) Date of Exam: 07/23/24 Exam# [id number] Ordering Dr: Harjit Vee DO PROCEDURE: CHEST 1 VIEW (PORTABLE) 07/23/2024 REASON FOR EXAM: DYSPNEA TECHNIQUE: Frontal view of the chest. COMPARISON: 03/02/23 FINDINGS: Mild pulmonary vascular congestion. No focal consolidations. Cardiac silhouette is mildly enlarged. No pleural effusion or pneumothorax. No acute fractures. RAD/Chest 1 View (Portable) IMPRESSION: Mild pulmonary vascular congestion. No focal consolidations. Mild cardiomegaly. Reading Location: [facility] CC: STILL TENDER-C Pato Mccall; Dr. Harjit Vee DO Body Care Manager: Signed Normal [facility] Chloride assayOrdered By: Delbert Vee on 07-23-2024 Chloride [Moles/Vol] 97 mmol/L Low 98-108 [facility] Emergency Department Summary on 07-23-2024 Emergency Department Summary [facility] Medical Records Department [address] [place] [address] Emergency Department Summary 07/23/24 MR#: [id number] Acct: [id number] Name: SHADE IBARRA Rep #: [id number] : 1965 59 From: Harjit Vee DO PCP: MARSHALL MalcolmC Status:DEP ER Location: ED HPI History of Present Illness Chief Complaint: Shortness of Breath Informant: patient and family (Daughter) Narrative Narrative: 59-year-old female presenting to the emergency room with dyspnea. Patient states that over the past week she has had wheezing shortness of breath. She relates last night that she was retaining fluid and her legs were more swollen. She began taking as needed Lasix. She took 40 mg last night and 20 mg this afternoon. Tonight she was unable to lay flat. She states that emotionally she is very upset. She has had problems with her insurance and has not been taking her medications very regularly including her antidepressant. She now has her medications. This has been very stressful for her and she is very tearful. She denies chest pain radial, or fever. 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) Anxiety Diabetes Former smoker CPAP (continuous positive airway pressure) dependence Sleep apnea Hypertension Bilateral pleural effusion Elevated troponin Elevated brain natriuretic peptide (BNP) level Essential (primary) hypertension Arthritis Lung disease Hemorrhoids Diarrhea Knee pain Asthma Chronic neck and back pain Incontinence Abnormal cardiovascular stress test Chest pain Pericardial effusion with cardiac tamponade ( 02/2014) Morbid obesity Paroxysmal atrial fibrillation Depression Type 2 diabetes mellitus without complications Obstructive sleep apnea Nicotine abuse Home Medications ???Medication ???Instructions ???Recorded ???Last Taken ???Type lorazepam 1 mg tablet 1 mg PO DAILY PRN Anxiety 08/04/17 Unknown History atorvastatin 40 mg tablet 40 mg PO DAILY cholesterol 3 01/04/23 History glipizide 5 mg tablet, extended 5 mg PO DAILY blood sugar 01/05/23 01/04/23 History release 24 hr pioglitazone 30 mg tablet 30 mg PO DAILY blood sugar 3 01/04/23 History cyanocobalamin (vitamin B-12) 500 1,000 mcg (2 x 500 mcg) PO Unknown Rx mcg tablet BREAKFAST 30 days #60 tabs insulin glargine 100 unit/mL (3 64 unit subcut DAILY diabetes 02/09 05/01 Unknown History mL) subcutaneous pen (Lantus Solostar U-100 Insulin) albuterol sulfate 90 mcg/actuation 2 puff inhalation Q4-6H PRN 03/12 03/03 Unknown Rx aerosol inhaler shortness of breath or wheezing #6.7 grams ferrous sulfate 325 mg (65 mg 325 mg PO DAILY #30 tabs 03/31/23 Unknown Rx iron) tablet losartan 100 mg tablet 100 mg PO DAILY #90 tabs 03/31/23 Unknown Rx furosemide 40 mg tablet (Lasix) 40 mg PO DAILY PRN edema 06/22/23 Unknown History furosemide 40 mg tablet (Lasix) 40 mg PO BID PRN edema #20 tabs Unknown Rx lorazepam 0.5 mg tablet (Ativan) 0.5 mg PO BID PRN anxiety #10 tabs 07/23/24 Unknown Rx venlafaxine 150 mg 150 mg PO DAILY 07/23/24 Unknown H istory capsule,extended release 24 hr Allergy/AdvReac Type Severity Reaction Status Date / Time Antihistamines - Alkylamine Allergy Shortness Verified 07/23/24 20:24 of breath sulfamethoxazole AdvReac Unknown Verified 07/23/24 20:24 trimethoprim AdvReac Unknown Verified 07/23/24 20:24 Family History Mother Myocardial infarction age 71 CAD (coronary artery disease) stents Surgical History History of left heart catheterization (09/06/17) History of cataract surgery Status post LASIK surgery of both eyes Hx of cholecystectomy History of appendectomy H/O dilation of urethra pericardial window (02/16/14) Social History Smoking Status: Former smoker how long ago did patient quit smokin years ago alcohol intake: current alcohol intake frequency: holidays/special occasions only substance use type: does not use caffeine: Yes Type: carbonated beverages Number of servings: 1, coffee Number of servings: 1 and tea Number of servings: 1 ROS ROS ED Constitutional Constitutional ED: Reports other Details: Weight gain ; Denies chills, fever(s) or weight loss Eyes Eyes: Denies change in vision or diplopia ENT ENT ED: Denies ear pain, rhinorrhea or sore throat Cardiovascular Cardiovascular: Reports orthopnea and other Details: Leg swelling ; Denies chest pain, palpitations or racing heartbeat Respiratory/Chest Respiratory/Chest (more content not included)... Normal [facility] Eosinophil percentageOrdered By: Harjit Vee on 07-23-2024 Eosinophils/100 WBC (Bld) 1.9 % 0-5 [facility] Erythrocyte distribution wid th ratioOrdered By: Harjit Vee on 07-23-2024 Erythrocyte distribution width (RBC) [Ratio] 12.6 % 11.6-14.6 [facility] Erythrocyte distribution wid th standard deviationOrdered By: Harjit Vee on 07-23-2024 Erythrocyte distribution width (RBC) [Ratio] 40.1 fl 35.1-43.9 [facility] Glomerular filtration rate ( GFR) estimation/1.73 sq m using serum, plasma, or whole bOrdered By: Harjit Vee on 07-23-2024 GFR/1.73 sq M.predicted among non-blacks MDRD (S/P/Bld) [Vol rate/Area] 64 mL/min/{1.73_m2} >60 [facility] Comment on above: mL/min/1.73m2 CKD-EP I Creatinine Equation (2020) Hematocrit Auto (Bld) [Volum e fraction]Ordered By: Harjit Vee on 07-23-2024 Hematocrit (Bld) [Volume fraction] 30.7 % Low 37-47 [facility] Hemoglobin measurementOrdere d By: Harjit Vee on 07-23-2024 Hemoglobin (Bld) [Mass/Vol] 10.1 g/dL Low 12.0-15.0 [facility] Immature granulocytes/100 WB C Auto (Bld)Ordered By: Harjit Vee on 07-23-2024 Immature granulocytes/100 WBC (Bld) 0.300 % 0.0-0.9 [facility] Comment on above: IG% - Immature Granu locytes (promyelocytes, myelocytes and metamyelocytes) > 1% indicates that a LEFT SHIFT is Present. Ketones Test strip Ql (U)Ord ered By: Harjit Vee on 07-23-2024 Ketones Ql (U) Negative Negative [facility] L499.0042on 07-23-2024 Trop T High Sen 16 ng/L High <=14 [facility] Comment on above: Performed By: #### L 499.0042 #### [facility] [address] [place], [address] L501.4021on 07-23-2024 Trop T High Sen 16 ng/L High <=14 [facility] Comment on above: Performed By: #### L 501.4021 ####[facility] [address] [place], [address] L503.7505on 07-23-2024 Natriuretic peptide B (Bld) [Mass/Vol] 1062 pg/mL High <=900 [facility] Comment on above: Result Comment: Hear t Failure Unlikely: < 300 pg/mL Heart Failure Likely < 50 Years: > 450 pg/mL 50-75 Years: > 900 pg/mL >75 Years: > 1800 pg/mL Performed By: #### L 500.3400, L503.7505, L100.0100, L500.2500 ####[facility] [address] [place], [address] Laboratory - Chemistry and C hemistry - challengeOrdered By: Harjit Vee on 07-23-2024 AST [Catalytic activity/Vol] 27 U/L <32 [facility] Liver Profileon 07-23-2024 Albumin [Mass/Vol] 3.6 g/dL Normal 3.4-4.8 [facility] Comment on above: Performed By: #### L 500.3400, L503.7505, L100.0100, L500.2500 ####[facility] [address] [place], [address] ALK PHOS 109 U/L High 35-104 [facility] Comment on above: Performed By: #### L 500.3400, L503.7505, L100.0100, L500.2500 ####[facility] [address] [place], [address] ALT [Catalytic activity/Vol] 34 U/L Normal <=34 [facility] Comment on above: Performed By: #### L 500.3400, L503.7505, L100.0100, L500.2500 ####[facility] [address] [place], [address] AST [Catalytic activity/Vol] 27 U/L Normal <=31 [facility] Comment on above: Performed By: #### L 500.3400, L503.7505, L100.0100, L500.2500 ####[facility] [address] [place], [address] Bilirubin [Mass/Vol] 0.35 mg/dL Normal 0.00-1.30 [facility] Comment on above: Performed By: #### L 500.3400, L503.7505, L100.0100, L500.2500 ####[facility] [address] [place], [address] Bilirubin.direct [Mass/Vol] 0.13 mg/dL Normal 0.00-0.30 [facility] Comment on above: Performed By: #### L 500.3400, L503.7505, L100.0100, L500.2500 ####[facility] [address] [place], [address] Globulin (S) [Mass/Vol] 3.1 g/dL Normal 2.2-4.2 [facility] Comment on above: Performed By: #### L 500.3400, L503.7505, L100.0100, L500.2500 ####[facility] [address] [place], [address] T PROT 6.7 g/dL Normal 5.9-8.4 [facility] Comment on above: Performed By: #### L 500.0670, L503.8305, L100.0100, L500.2500 ####[facility] [address] [place], [address] MCV (mean corpuscular volume ) determinationOrdered By: Harjit Vee on 07-23-2024 MCV (RBC) [Entitic vol] 86.5 fL 81-99 [facility] Mean corpuscular hemoglobin (MCH) determinationOrdered By: Harjit Vee on 07-23-2024 MCH (RBC) [Entitic mass] 28.5 pg 27.0-32.0 [facility] Mean corpuscular hemoglobin concentration (MCHC) determinationOrdered By: Harjit Vee on 07-23-2024 MCHC (RBC) [Mass/Vol] 32.9 g/dL 32-36 [facility] Mean platelet volume determi nationOrdered By: Harjit Vee on 07-23-2024 Platelet mean volume (Bld) [Entitic vol] 9.5 fL 6.2-12.0 [facility] Microscopic analysis of urin e for red blood cells (RBC)Ordered By: Harjit Vee on 07-23-2024 Microscopic analysis of urine for red blood cells (RBC) 0-5 SEEN /hpf 0-5 [facility] Monocyte percentageOrdered B y: Harjit Vee on 07-23-2024 Monocytes/100 WBC (Bld) 7.5 % 0-10 [facility] Mucus LM Ql (Urine sed)Order ed By: Harjit Vee on 07-23-2024 Mucus Ql (Urine sed) 1+ /hpf [facility] Natriuretic peptide.B prohor saranya N-Terminal [Mass/volume] in Serum or PlasmaOrdered By: Harjit Vee on 07-23-2024 Natriuretic peptide.B prohormone N-Terminal [Mass/Vol] 1062 pg/mL High <900 [facility] Comment on above: Heart Failure Unlike ly: < 300 pg/mLHeart Failure Likely< 50 Years: > 450 pg/mL50-75 Years: > 900 pg/mL>75 Years: > 1800 pg/mL Neutrophil percentageOrdered By: Harjit Vee on 07-23-2024 Neutrophils/100 WBC (Bld) 68.4 % 47-70 [facility] Nitrite Test strip Ql (U)Ord ered By: Harjit Vee on 07-23-2024 Nitrite Ql (U) Negative Negative [facility] Nucleated red blood cell per centageOrdered By: Harjit Vee on 07-23-2024 Nucleated RBC/100 WBC (Bld) [Ratio] 0 % 0-5 [facility] Platelet countOrdered By: Delbert Vee on 07-23-2024 Platelets (Bld) [#/Vol] 343 10*3/uL 150-450 [facility] Potassium measurement (mass/ volume)Ordered By: Harjit Vee on 07-23-2024 Potassium (Unsp spec) [Mass/Vol] 4.5 mmol/L 3.3-5.1 [facility] Protein Test strip Ql (U)Ord ered By: Harjit Vee on 07-23-2024 Protein Ql (U) 100 mg/dl High Negative [facility] RBC Auto (Bld) [#/Vol]Ordere d By: Harjit Vee on 07-23-2024 RBC (Bld) [#/Vol] 3.55 10*6/uL Low 4.2-5.4 [facility] Serum creatinine measurement (mass/volume)Ordered By: Harjit Vee on 07-23-2024 Creatinine [Mass/Vol] 1.00 mg/dL 0.70-1.20 [facility] Serum globulin measurementOr dered By: Harjit Vee on 07-23-2024 Globulin (S) [Mass/Vol] 3.1 g/dL 2.2-4.2 [facility] Serum glucose measurement (m ass/volume)Ordered By: Harjit Vee on 07-23-2024 Glucose [Mass/Vol] 400 mg/dL High 70-99 [facility] Serum or plasma alanine noe otransferase (ALT) measurementOrdered By: Harjit Vee on 07-23-2024 ALT [Catalytic activity/Vol] 34 U/L <35 [facility] Serum or plasma albumin cortez urement (mass/volume)Ordered By: Harjit Vee on 07-23-2024 Albumin [Mass/Vol] 3.6 g/dL 3.4-4.8 [facility] Serum or plasma alkaline diane sphatase measurementOrdered By: Harjit Vee on 07-23-2024 ALP [Catalytic activity/Vol] 109 U/L High 35-104 [facility] Serum or plasma calcium cortez urement (mass/volume)Ordered By: Harjit Vee on 07-23-2024 Calcium [Mass/Vol] 8.8 mg/dL 7.6-11.0 [facility] Serum or plasma urea nitroge n measurement (mass/volume)Ordered By: Harjit Vee on 07-23-2024 Urea nitrogen [Mass/Vol] 24 mg/dL High 4-19 [facility] Sodium levelOrdered By: Harris Vee on 07-23-2024 Sodium [Moles/Vol] 133 mmol/L 133-145 [facility] Squamous epithelial cells de tection in urine sediment by light microscopyOrdered By: Harjit Vee on 07-23-2024 Epithelial cells.squamous LM Ql (Urine sed) 5-10 SEEN /hpf 5-10 [facility] Total proteinOrdered By: Severiano Vee on 07-23-2024 Protein [Mass/Vol] 6.7 g/dL 5.9-8.4 [facility] Transitional cells detection in urine sediment by light microscopyOrdered By: Harjit Vee on 07-23-2024 Transitional cells LM Ql (Urine sed) 0-5 SEEN /hpf 0-5 [facility] Troponin T.cardiac [Mass/vol ume] in Serum or Plasma by High sensitivity methodOrdered By: Harjit Vee on 07-23-2024 Troponin T.cardiac High sensitivity method [Mass/Vol] 16 ng/L High <14 [facility] Troponin T.cardiac High sensitivity method [Mass/Vol] 16 ng/L High <14 [facility] Urinalysis, Completeon 07-23 BACTERIA 3+ /hpf Normal None Seen [facility] Comment on above: Order Comment: CLEAN CATCH Performed By: #### L 400.0001 #### [facility] [address] [place], [address] EPI,TRANSITION 0-5 SEEN Normal 0-5 [facility] Comment on above: Order Comment: CLEAN CATCH Performed By: #### L 400.0001 #### [facility] [address] [place], [address] Mucus Ql (Urine sed) 1+ /hpf Normal [facility] Comment on above: Order Comment: CLEAN CATCH Performed By: #### L 400.0001 #### [facility] [address] [place], [address] YEAST 1+ /hpf Normal None Seen [facility] Comment on above: Order Comment: CLEAN CATCH Performed By: #### L 400.0001 #### [facility] [address] [place], [address] EPI,SQUAMOUS 5-10 SEEN Normal 5-10 [facility] Comment on above: Order Comment: CLEAN CATCH Performed By: #### L 400.0001 #### [facility] [address] [place], [address] RBC 0-5 SEEN Normal 0-5 [facility] Comment on above: Order Comment: CLEAN CATCH Performed By: #### L 400.0001 #### [facility] [address] [place], [address] WBC 5-10 SEEN Normal 0-5 [facility] Comment on above: Order Comment: CLEAN CATCH Performed By: #### L 400.0001 #### [facility] [address] [place], [address] Urine clarityOrdered By: Severiano Vee on 07-23-2024 Clarity (U) Sl. Cloudy Clear [facility] Urine color determinationOrd ered By: Harjit Vee on 07-23-2024 Color (U) Straw Yellow [facility] Urine glucose detectionOrder ed By: Harjit Vee on 07-23-2024 Glucose Ql (U) 1000 mg/dl High Normal [facility] Urine leukocyte esterase det ection by dipstickOrdered By: Harjit Vee on 07-23-2024 Leukocyte esterase Test strip Ql (U) 100 /ul High Negative [facility] Urine pHOrdered By: Harjit walker on 07-23-2024 pH (U) 6.0 [pH] 5.0 - 8.0 [facility] Urine sediment bacteria coun t by microscopy (number/high power field)Ordered By: Harjit Vee on 07-23-2024 Bacteria LM.HPF (Urine sed) [#/Area] 3 /[HPF] None Seen [facility] Urine sediment yeast count b y microscopy (number/high powered field)Ordered By: Harjit Vee on 07-23-2024 Yeast LM.HPF (Urine sed) [#/Area] 1 /[HPF] None Seen [facility] Urine specific gravity measu rementOrdered By: Harjit Vee on 07-23-2024 Specific gravity (U) [Rel density] 1.015 1.002-1.030 [facility] Urine urobilinogen measureme ntOrdered By: Harjit Vee on 07-23-2024 Urobilinogen Ql (U) Normal mg/dl Normal [facility] White blood cell (WBC) count Ordered By: Harjit Vee on 07-23-2024 WBC (Bld) [#/Vol] 11.6 10*3/uL High 4.4-11.0 [facility] White blood cell countOrdere d By: Harjit Vee on 07-23-2024 White blood cell count 5-10 SEEN /hpf 0-5 [facility] XR CHEST 2 VIEWSon XR CHEST 2 [...] 02/09/2024 11:39:53 AM Ordering Provider: LIZA WYNN [facility] .GFRon 02-07-2024 GFR 67 ml/min/1.73sqm [facility] Comment on above: Result Comment: GFR [...] By: #### G FR, BMP, MG #### [address] [address] GFR Non- 55 ml/min/1.73sqm [facility] Comment on above: Result Comment: GFR [...] By: #### G FR, BMP, MG #### [address] [address] BMPon 02-07-2024 BUN/Creatinine Ratio 33 ratio High 7-27 [facility] Comment on above: Performed By: #### G FR, BMP, MG #### [address] [address] Calcium [Mass/Vol] 9.1 mg/dL Normal 8.4-10.2 [facility] Comment on above: Performed By: #### G FR, BMP, MG #### [address] [address] Chloride [Moles/Vol] 107 mmol/L Normal 98-107 [facility] Comment on above: Performed By: #### G , BMP, MG #### [address] [address] CO2 [Moles/Vol] 28 mmol/L Normal 23-31 [facility] Comment on above: Performed By: #### G FR BMP, MG #### [address] [address] Creatinine [Mass/Vol] 1.02 mg/dL Normal 0.55-1.02 [facility] Comment on above: Result Comment: Test ing performed on Siemens Dimension EXL analyzer using a modified kinetic Nichelle technique. Performed By: #### G FR BMP, MG #### [address] [address] Electrolyte Balance 6.0 mEq/L Normal 4.0-15.0 [facility] Comment on above: Performed By: #### G FR, BMP, MG #### [address] [address] Glucose [Mass/Vol] 218 mg/dL High 80-115 [facility] Comment on above: Performed By: #### G FR, BMP, MG #### [address] [address] Potassium [Moles/Vol] 5.0 mmol/L Normal 3.5-5.1 [facility] Comment on above: Performed By: #### G FR, BMP, MG #### [facility] [address], [place] [address] Sodium [Moles/Vol] 141 mmol/L Normal 136-145 [facility] Comment on above: Performed By: #### G FR, BMP, MG #### [facility] [address], [place] [address] Urea nitrogen [Mass/Vol] 34 mg/dL High 7-18 [facility] Comment on above: Performed By: #### G FR, BMP, MG #### [facility] [address], [place] [address] LABORATORYOrdered By: SYSTEM SYSTEM on 02-07-2024 Calcium [...] 02-07-2024 Magnesium [Mass/Vol] 1.4 mg/dL Low 1.8-2.4 [facility] Comment on above: Performed By: #### G FR, BMP, MG #### [address] [address] PBNPon 02-07-2024 Natriuretic peptide B (Bld) [Mass/Vol] 1408 pg/mL High 0-125 [facility] Comment on above: Result Comment: NT-p roBNP results of less than 300 pg/mL effectively rules out acute congestive heart failure with 99% negative predictive value. Performed By: #### P BNP #### [place] [id number] ERTAPENEM:SUSC:PT:ISOLATE:OR DQN:MICon 11-24-2023 Ertapenem LUCIANO [Susc] >100,000 cfu/ml Escherichia coli [facility] Work Phone: Ertapenem LUCIANO [Susc]on 11-23 Escherichia coli Escherichia coli [facility] Work Phone: LABORATORYOrdered By: Marilee Garrison on 10-15-2023 Albumin DL <= 20 mg/L (U) [Mass/Vol] 7295 mcg/dL Invalid Interpretation Code AO ADM SS Albumin/Creatinine DL <= 20 mg/L (U) [Mass ratio] 81 mcg/mg High 0 - 30 mcg/mg AO ADM SS Creatinine (U) [Mass/Vol] 90.6 mg/dL Normal 28.0 - 117.0 mg/dL AO ADM SS MALBRon 10-15-2023 U Creatinine 90.6 mg/dL Normal 28.0-117.0 [facility] Comment on above: Performed By: #### M ALBR #### [address] [address] U Microalb 7295 mcg/dL Normal [facility] Comment on above: Performed By: #### M ALBR #### [address] [address] U Ratio Alb/Cre 81 mcg/mg High 0-30 [facility] Comment on above: Performed By: #### M ALBR #### [address] [address] TOBRAMYCIN:SUSC:PT:ISOLATE:O RDQN:MICon 10-15-2023 Tobramycin LUCIANO [Susc] 50,000 - 100,000 cfu/ml Klebsiella variicola [facility] Work Phone: [facility] Klebsiella variicola Klebsiella variicola [facility] Work Phone: MA MAMMOGRAM DIAGNOSTIC BILA TERAL W/TOMOon 07-15-2023 MA MAMMOGRAM DIAGNOSTIC BILATERAL W/YUSUF ORIGINAL FROM: [facility] [address], [place] [address] PROCEDURE FOR: SHADE IBARRA [address] [place] [address] Home: PID#: [id number] Exam#: [id number] : 1965 Age: 58 TO: PATO MCCALL [facility] [facility] [address] [address] Fax: NO FAX EXAMINATION: DIAGNOSTIC BILATERAL MAMMOGRAM [...] addition to annual mammographic screening per the [employer]. BIRADS: MAMMOGRAM BI-RADS: 1: Negative RECALL: 1 year screening RECALL TYPE: mammo LETTER SENT: Normal BI-RADS 1 and 2 Interpreted by: Shawn Jackson MD Preliminary Report By: Shawn Jackson MD Electronically signed By Shawn Jackson MD Dictated Date: 07/15/2023 3:06:14 PM Prelim Date: 07/15/2023 3:10:14 PM Sign Date: 07/15/2023 3:10:14 PM Ordering Provider: PATO MCCALL CLINICAL: SKIN LESION RIGHT BREAST. Stiff Neck Loader: JACI ALMARAZ RT(R)(M)(CT) letter sent: Normal BI-RADS 1 and 2 Mammogram BI-RADS: 1 Negative [facility] ([place] Basophil percentageOrdered B y: Pato Mccall on 05-21-2023 Bilirubin [Mass/Vol] 0.40 mg/dL 0.20-1.00 [facility] Comment on above: For patients on eltr ombopag therapy, use of Dimension [place] TBIL is not recommended. Chloride [Moles/Vol] 105 mmol/L 98-107 [facility] Glucose [Mass/Vol] 149 mg/dL 74-106 [facility] Comment on above: Fasting Glucose resu lt greater than or equal to 126 mg/dL suggests DIABETES MELLITUS per A.D.A. criteria. Hemoglobin (Bld) [Mass/Vol] 10.9 g/dL 12.0-15.0 [facility] Potassium [Moles/Vol] 5.2 mmol/L 3.5-5.1 [facility] Protein [Mass/Vol] 7.5 g/dL 6.4-8.2 [facility] Sodium [Moles/Vol] 135 mmol/L 136-145 [facility] WBC (Bld) [#/Vol] 8.4 10*3/uL 4.4-11.0 [facility] Determination of erythrocyte mean corpuscular volume (MCV)Ordered By: Pato Mccall on 05-21-2023 MCV (RBC) [Entitic vol] 87.8 fL 81-99 [facility] Erythrocyte distribution wid th ratioOrdered By: Pato Mccall on 05-21-2023 Erythrocyte distribution width (RBC) [Ratio] 13.5 % 11.6-14.6 [facility] Erythrocyte distribution wid th standard deviationOrdered By: Pato Mccall on 05-21-2023 Erythrocyte distribution width (RBC) [Entitic vol] 43.7 fL 35.1-43.9 [facility] Hematocrit Auto (Bld) [Volum e fraction]Ordered By: Pato Mccall on 05-21-2023 Hematocrit (Bld) [Volume fraction] 35.2 % 37-47 [facility] Laboratory - Chemistry and C hemistry - challengeOrdered By: Pato Mcclal on 05-21-2023 Albumin/Globulin [Mass ratio] 0.7 {ratio} 0.9-2.4 [facility] ALP [Catalytic activity/Vol] 112 U/L 45-117 [facility] ALT [Catalytic activity/Vol] 24 U/L 13-56 [facility] CO2 [Moles/Vol] 30.0 mmol/L 21.0-32.0 [facility] Globulin (S) [Mass/Vol] 4.5 g/dL 2.2-4.2 [facility] Urea nitrogen/Creatinine [Mass ratio] 21.8 mg/mg 10-20 [facility] Laboratory - Hematology and Cell countsOrdered By: Pato Mccall on 05-21-2023 MCH (RBC) [Entitic mass] 27.2 pg 27.0-32.0 [facility] MCHC (RBC) [Mass/Vol] 31.0 g/dL 32-36 [facility] Platelet mean volume (Bld) [Entitic vol] 8.9 fL 6.2-12.0 [facility] Platelets (Bld) [#/Vol] 375 10*3/uL 150-450 [facility] No Panel InformationOrdered By: Pato Mccall on 05-21-2023 C-Reactive Protein Extended Range 35.40 mg/L 0.0-3.0 [facility] Comment on above: C-Reactive Protein ( CRP) provides useful information for thediagnosis, therapy and monitoring of inflammatory processesand associated diseases. For the evaluation of Relative Riskfor Cardiovascular Disease, a High Sensitivity CRP (HSCRP)should be ordered. Estimated GFR (MDRD) Amer 72 mL/min >60 [facility] Comment on above: GFR Calc Estimated GFR (MDRD) Non-Af Amer 59 mL/min >60 [facility] Comment on above: Non- GFR Calc Vitamin D 25-Hydroxy 25.6 ng/mL [facility] Comment on above: Vitamin D 25(OH) Sta tus Range Deficiency <20 ng/mL (50nmol/L) Insufficiency 20 - 30 ng/mL (50 - 75 nmol/L) Sufficiency 30 - 100 ng/mL (75 - 250 nmol/L) Toxicity >100 ng/mL (>250 nmol/L) RBC Auto (Bld) [#/Vol]Ordere d By: Pato Mccall on 05-21-2023 RBC (Bld) [#/Vol] 4.01 10*6/uL 4.2-5.4 [facility] Serum or plasma calcium cortez urement (mass/volume)Ordered By: Pato Mccall on 05-21-2023 Calcium [Mass/Vol] 9.5 mg/dL 8.5-10.1 [facility] Serum or plasma creatinine m easurement (mass/volume)Ordered By: Pato Mccall on 05-21-2023 Creatinine [Mass/Vol] 1.01 mg/dL 0.55-1.02 [facility] Comment on above: The validity of the calculated GFR & GFRAA in patients over 70 years has not been determined. Clinical correlation is essential. Serum or plasma thyroid stim ulating hormone (TSH) measurement (units/volume)Ordered By: Pato Mccall on 05-21-2023 TSH Qn 1.53 uIU/mL 0.358-3.74 [facility] Serum or plasma urea nitroge n measurement (mass/volume)Ordered By: Pato Mccall on 05-21-2023 Urea nitrogen [Mass/Vol] 22 mg/dL 7-18 [facility] Thin prep Papanicolaou smear with manual screeningOrdered By: Pato Mccall on 05-21-2023 Thin prep Papanicolaou smear with manual screening 3.0 g/dL 3.2-5.0 [facility] Thin prep Papanicolaou smear with manual screening 18 U/L 15-37 [facility] Thin prep Papanicolaou smear with manual screening 0 5-15 [facility] Whole blood hemoglobin A1c/t otal hemoglobin ratio (mass fraction)Ordered By: Pato Mccall on 05-21-2023 HbA1c (Bld) [Mass fraction] 9.7 % 3.8-5.6 [facility] Comment on above: Normal < 5.7 % Predi abetic 5.7 - 6.4 % Diabetic >or= 6.5 % Please note range changes. Absolute lymphocyte countOrd ered By: Magalys Shi on 03-03-2023 Lymphocytes Auto (Unsp spec) [#/Vol] 2.92 10*3/uL 0.83-4.51 [facility] Automated lymphocyte count a s percentage of total leukocytesOrdered By: Magalys Shi on 03-03-2023 Lymphocytes/100 WBC Auto (Unsp spec) 18.4 % 19-41 [facility] Basophil percentageOrdered B y: Magalys Shi on 03-03-2023 Basophils/100 WBC (Bld) 0.6 % 0-1 [facility] Chloride [Moles/Vol] 106 mmol/L 98-107 [facility] Eosinophils/100 WBC (Bld) 1.3 % 0-5 [facility] Glucose [Mass/Vol] 249 mg/dL 74-106 [facility] Comment on above: Glucose result great er than or equal to 200 mg/dLsuggests DIABETES MELLITUS per A.D.A. criteria. Hemoglobin (Bld) [Mass/Vol] 9.1 g/dL 12.0-15.0 [facility] Monocytes/100 WBC (Bld) 5.5 % 0-10 [facility] Neutrophils (Bld) [#/Vol] 11.7 10*3/uL 2.0-7.7 [facility] Neutrophils/100 WBC (Bld) 73.8 % 47-70 [facility] Potassium [Moles/Vol] 4.1 mmol/L 3.5-5.1 [facility] Sodium [Moles/Vol] 135 mmol/L 136-145 [facility] WBC (Bld) [#/Vol] 15.8 10*3/uL 4.4-11.0 [facility] Determination of erythrocyte mean corpuscular volume (MCV)Ordered By: Magalys Shi on 03-03-2023 MCV (RBC) [Entitic vol] 87.2 fL 81-99 [facility] Erythrocyte distribution wid th ratioOrdered By: Magalys Shi on 03-03-2023 Erythrocyte distribution width (RBC) [Ratio] 14.4 % 11.6-14.6 [facility] Erythrocyte distribution wid th standard deviationOrdered By: Magalys Shi on 03-03-2023 Erythrocyte distribution width (RBC) [Entitic vol] 45.5 fL 35.1-43.9 [facility] Hematocrit Auto (Bld) [Volum e fraction]Ordered By: Magalys Shi on 03-03-2023 Hematocrit (Bld) [Volume fraction] 29.2 % 37-47 [facility] Immature granulocytes/100 WB C Auto (Bld)Ordered By: Magalys Shi on 03-03-2023 Immature granulocytes/100 WBC (Bld) 0.400 % 0.0-0.9 [facility] Comment on above: IG% - Immature Granu locytes (promyelocytes, myelocytes and metamyelocytes) > 1% indicates that a LEFT SHIFT is Present. Laboratory - Chemistry and C hemistry - challengeOrdered By: Magalys Shi on 03-03-2023 CO2 [Moles/Vol] 24.0 mmol/L 21.0-32.0 [facility] Urea nitrogen/Creatinine [Mass ratio] 25.8 mg/mg 10-20 [facility] Laboratory - Hematology and Cell countsOrdered By: Magalys Shi on 03-03-2023 MCH (RBC) [Entitic mass] 27.2 pg 27.0-32.0 [facility] MCHC (RBC) [Mass/Vol] 31.2 g/dL 32-36 [facility] Nucleated RBC/100 WBC (Bld) [Ratio] 0 % 0-5 [facility] Platelets (Bld) [#/Vol] 383 10*3/uL 150-450 [facility] No Panel InformationOrdered By: Magalys Shi on 03-03-2023 Estimated Creatinine Clearance Calc 68.52 ml/min [facility] Estimated GFR (MDRD) Amer 53 mL/min >60 [facility] Comment on above: GFR Calc Estimated GFR (MDRD) Non-Af Amer 44 mL/min >60 [facility] Comment on above: Non- GFR Calc Platelet mean volume Lázaro-Ec ker (Bld) [Entitic vol]Ordered By: Magalys Shi on 03-03-2023 Platelet mean volume (Bld) [Entitic vol] 9.3 fL 6.2-12.0 [facility] RBC Auto (Bld) [#/Vol]Ordere d By: Magalys Shi on 03-03-2023 RBC (Bld) [#/Vol] 3.35 10*6/uL 4.2-5.4 [facility] Serum or plasma calcium cortez urement (mass/volume)Ordered By: Magalys Shi on 03-03-2023 Calcium [Mass/Vol] 8.8 mg/dL 8.5-10.1 [facility] Serum or plasma creatinine m easurement (mass/volume)Ordered By: Magalys Shi on 03-03-2023 Creatinine [Mass/Vol] 1.32 mg/dL 0.55-1.02 [facility] Comment on above: The validity of the calculated GFR & GFRAA in patients over 70 years has not been determined. Clinical correlation is essential. Serum or plasma urea nitroge n measurement (mass/volume)Ordered By: Magalys Shi on 03-03-2023 Urea nitrogen [Mass/Vol] 34 mg/dL 7-18 [facility] Thin prep Papanicolaou smear with manual screeningOrdered By: Magalys Shi on 03-03-2023 Thin prep Papanicolaou smear with manual screening 5 5-15 [facility] Absolute lymphocyte countOrd ered By: Avi Baeza on 03-02-2023 Lymphocytes Auto (Unsp spec) [#/Vol] 2.22 10*3/uL 0.83-4.51 [facility] Automated lymphocyte count a s percentage of total leukocytesOrdered By: Avi Baeza on 03-02-2023 Lymphocytes/100 WBC Auto (Unsp spec) 18.1 % 19-41 [facility] Basophil percentageOrdered B y: Avi Baeza on 03-02-2023 Basophils/100 WBC (Bld) 0.7 % 0-1 [facility] Bilirubin [Mass/Vol] 0.30 mg/dL 0.20-1.00 [facility] Comment on above: For patients on eltr ombopag therapy, use of Dimension [place] TBIL is not recommended. Chloride [Moles/Vol] 106 mmol/L 98-107 [facility] Eosinophils/100 WBC (Bld) 1.2 % 0-5 [facility] Glucose [Mass/Vol] 235 mg/dL 74-106 [facility] Comment on above: Glucose result great er than or equal to 200 mg/dLsuggests DIABETES MELLITUS per A.D.A. criteria. Hemoglobin (Bld) [Mass/Vol] 10.1 g/dL 12.0-15.0 [facility] Monocytes/100 WBC (Bld) 5.8 % 0-10 [facility] Neutrophils (Bld) [#/Vol] 9.1 10*3/uL 2.0-7.7 [facility] Neutrophils/100 WBC (Bld) 73.7 % 47-70 [facility] Potassium [Moles/Vol] 4.2 mmol/L 3.5-5.1 [facility] Protein [Mass/Vol] 7.6 g/dL 6.4-8.2 [facility] Sodium [Moles/Vol] 138 mmol/L 136-145 [facility] WBC (Bld) [#/Vol] 12.3 10*3/uL 4.4-11.0 [facility] Determination of erythrocyte mean corpuscular volume (MCV)Ordered By: Avi Baeza on 03-02-2023 MCV (RBC) [Entitic vol] 89.3 fL 81-99 [facility] Erythrocyte distribution wid th ratioOrdered By: Avi Baeza on 03-02-2023 Erythrocyte distribution width (RBC) [Ratio] 14.5 % 11.6-14.6 [facility] Erythrocyte distribution wid th standard deviationOrdered By: Avi Baeza on 03-02-2023 Erythrocyte distribution width (RBC) [Entitic vol] 46.8 fL 35.1-43.9 [facility] Hematocrit Auto (Bld) [Volum e fraction]Ordered By: Avi Baeza on 03-02-2023 Hematocrit (Bld) [Volume fraction] 33.3 % 37-47 [facility] Immature granulocytes/100 WB C Auto (Bld)Ordered By: Avi Baeza on 03-02-2023 Immature granulocytes/100 WBC (Bld) 0.500 % 0.0-0.9 [facility] Comment on above: IG% - Immature Granu locytes (promyelocytes, myelocytes and metamyelocytes) > 1% indicates that a LEFT SHIFT is Present. Laboratory - Chemistry and C hemistry - challengeOrdered By: Avi Baeza on 03-02-2023 Albumin/Globulin [Mass ratio] 0.7 {ratio} 0.9-2.4 [facility] ALP [Catalytic activity/Vol] 127 U/L 45-117 [facility] ALT [Catalytic activity/Vol] 23 U/L 13-56 [facility] CO2 [Moles/Vol] 30.0 mmol/L 21.0-32.0 [facility] Globulin (S) [Mass/Vol] 4.5 g/dL 2.2-4.2 [facility] Natriuretic peptide B (Bld) [Mass/Vol] 64.1 pg/mL 0-100 [facility] Urea nitrogen/Creatinine [Mass ratio] 28.2 mg/mg 10-20 [facility] Laboratory - Hematology and Cell countsOrdered By: Avi Baeza on 03-02-2023 MCH (RBC) [Entitic mass] 27.1 pg 27.0-32.0 [facility] MCHC (RBC) [Mass/Vol] 30.3 g/dL 32-36 [facility] Nucleated RBC/100 WBC (Bld) [Ratio] 0 % 0-5 [facility] Platelets (Bld) [#/Vol] 454 10*3/uL 150-450 [facility] No Panel InformationOrdered By: Avi Baeza on 03-02-2023 Estimated GFR (MDRD) Amer 61 mL/min >60 [facility] Comment on above: GFR Calc Estimated GFR (MDRD) Non-Af Amer 50 mL/min >60 [facility] Comment on above: Non- GFR Calc Platelet mean volume Lázaro-Ec ker (Bld) [Entitic vol]Ordered By: Avi Baeza on 03-02-2023 Platelet mean volume (Bld) [Entitic vol] 9.5 fL 6.2-12.0 [facility] RBC Auto (Bld) [#/Vol]Ordere d By: Avi Baeza on 03-02-2023 RBC (Bld) [#/Vol] 3.73 10*6/uL 4.2-5.4 [facility] Serum or plasma calcium cortez urement (mass/volume)Ordered By: Avi Baeza on 03-02-2023 Calcium [Mass/Vol] 9.2 mg/dL 8.5-10.1 [facility] Serum or plasma creatinine m easurement (mass/volume)Ordered By: Avi Baeza on 03-02-2023 Creatinine [Mass/Vol] 1.17 mg/dL 0.55-1.02 [facility] Comment on above: The validity of the calculated GFR & GFRAA in patients over 70 years has not been determined. Clinical correlation is essential. Serum or plasma urea nitroge n measurement (mass/volume)Ordered By: Avi Baeza on 03-02-2023 Urea nitrogen [Mass/Vol] 33 mg/dL 7-18 [facility] Thin prep Papanicolaou smear with manual screeningOrdered By: Avi Baeza on 03-02-2023 Thin prep Papanicolaou smear with manual screening 3.1 g/dL 3.2-5.0 [facility] Thin prep Papanicolaou smear with manual screening 15 U/L 15-37 [facility] Thin prep Papanicolaou smear with manual screening 2 5-15 [facility] Absolute lymphocyte countOrd ered By: Liza Hughes on 01-30-2023 Lymphocytes Auto (Unsp spec) [#/Vol] 2.40 10*3/uL 0.83-4.51 [facility] Basophil percentageOrdered B y: Liza Hughes on 01-30-2023 Basophils/100 WBC (Bld) 0.7 % 0-1 [facility] Chloride [Moles/Vol] 109 mmol/L 98-107 [facility] Eosinophils/100 WBC (Bld) 2.4 % 0-5 [facility] Glucose [Mass/Vol] 250 mg/dL 74-106 [facility] Comment on above: Glucose result great er than or equal to 200 mg/dLsuggests DIABETES MELLITUS per A.D.A. criteria. Neutrophils (Bld) [#/Vol] 6.5 10*3/uL 2.0-7.7 [facility] Neutrophils/100 WBC (Bld) 66.0 % 47-70 [facility] Potassium [Moles/Vol] 5.2 mmol/L 3.5-5.1 [facility] Comment on above: Slight Hemolysis, Re sult may be falsely increased. Sodium [Moles/Vol] 136 mmol/L 136-145 [facility] WBC (Bld) [#/Vol] 9.9 10*3/uL 4.4-11.0 [facility] Blood erythrocytes count (nu mber/volume)Ordered By: Liza Hughes on 01-30-2023 RBC (Bld) [#/Vol] 3.61 10*6/uL 4.2-5.4 [facility] Blood hemoglobin measurement (mass/volume)Ordered By: Liza Hughes on 01-30-2023 Hemoglobin (Bld) [Mass/Vol] 9.8 g/dL 12.0-15.0 [facility] Blood lymphocytes/100 leukoc ytesOrdered By: Liza Hughes on 01-30-2023 Lymphocytes/100 WBC (Bld) 24.3 % 19-41 [facility] Blood monocytes/100 leukocyt esOrdered By: Liza Hughes on 01-30-2023 Monocytes/100 WBC (Bld) 6.3 % 0-10 [facility] Blood platelet mean volumeOr dered By: Liza Hughes on 01-30-2023 Platelet mean volume (Bld) [Entitic vol] 9.2 fL 6.2-12.0 [facility] Determination of erythrocyte mean corpuscular volume (MCV)Ordered By: Liza Hughes on 01-30-2023 MCV (RBC) [Entitic vol] 88.4 fL 81-99 [facility] Hematocrit Auto (Bld) [Volum e fraction]Ordered By: Liza Hughes on 01-30-2023 Hematocrit (Bld) [Volume fraction] 31.9 % 37-47 [facility] Laboratory - Chemistry and C hemistry - challengeOrdered By: Liza Hughes on 01-30-2023 CO2 [Moles/Vol] 23.0 mmol/L 21.0-32.0 [facility] Natriuretic peptide B (Bld) [Mass/Vol] 91.1 pg/mL 0-100 [facility] Urea nitrogen/Creatinine [Mass ratio] 26.7 mg/mg 10-20 [facility] Laboratory - Hematology and Cell countsOrdered By: Liza Hughes on 01-30-2023 Erythrocyte distribution width (RBC) [Entitic vol] 45.0 fL 35.1-43.9 [facility] Erythrocyte distribution width (RBC) [Ratio] 13.8 % 11.6-14.6 [facility] Immature granulocytes/100 WBC (Bld) 0.300 % 0.0-0.9 [facility] Comment on above: IG% - Immature Granu locytes (promyelocytes, myelocytes and metamyelocytes) > 1% indicates that a LEFT SHIFT is Present. MCH (RBC) [Entitic mass] 27.1 pg 27.0-32.0 [facility] Nucleated RBC/100 WBC (Bld) [Ratio] 0 % 0-5 [facility] MCHC Auto (RBC) [Mass/Vol]Or dered By: Liza Hughes on 01-30-2023 MCHC (RBC) [Mass/Vol] 30.7 g/dL 32-36 [facility] No Panel InformationOrdered By: Liza Hughes on 01-30-2023 Estimated Creatinine Clearance Calc 53.97 ml/min [facility] Estimated GFR (MDRD) Amer 72 mL/min >60 [facility] Comment on above: GFR Calc Estimated GFR (MDRD) Non-Af Amer 59 mL/min >60 [facility] Comment on above: Non- GFR Calc Troponin I High Sensitivity 18 pg/mL 3.0-54.0 [facility] Comment on above: Please Note: [place] t Units and Gender Specific Reference Ranges. For more information see Policy Stat Procedure [place] High Sensitivity Troponin (TNIH) and attachments. Platelets bldOrdered By: Dori Hughes on 01-30-2023 Platelets (Bld) [#/Vol] 428 10*3/uL 150-450 [facility] Serum or plasma calcium cortez urement (mass/volume)Ordered By: Liza Hughes on 01-30-2023 Calcium [Mass/Vol] 9.3 mg/dL 8.5-10.1 [facility] Serum or plasma creatinine m easurement (mass/volume)Ordered By: Liza Hughes on 01-30-2023 Creatinine [Mass/Vol] 1.01 mg/dL 0.55-1.02 [facility] Comment on above: The validity of the calculated GFR & GFRAA in patients over 70 years has not been determined. Clinical correlation is essential. Serum or plasma urea nitroge n measurement (mass/volume)Ordered By: Liza Hughes on 01-30-2023 Urea nitrogen [Mass/Vol] 27 mg/dL 7-18 [facility] Thin prep Papanicolaou smear with manual screeningOrdered By: Liza Hughes on 01-30-2023 Thin prep Papanicolaou smear with manual screening 4 5-15 [facility] Absolute lymphocyte countOrd ered By: Harjit Vee on 01-23-2023 Lymphocytes Auto (Unsp spec) [#/Vol] 2.31 10*3/uL 0.83-4.51 [facility] Basophil percentageOrdered B y: Harjit Vee on 01-23-2023 Basophil percentage 5-10 SEEN /hpf 0-5 [facility] Basophils/100 WBC (Bld) 0.8 % 0-1 [facility] Chloride [Moles/Vol] 102 mmol/L 98-107 [facility] Eosinophils/100 WBC (Bld) 1.1 % 0-5 [facility] Glucose [Mass/Vol] 386 mg/dL 74-106 [facility] Comment on above: Glucose result great er than or equal to 200 mg/dLsuggests DIABETES MELLITUS per A.D.A. criteria. Neutrophils (Bld) [#/Vol] 9.1 10*3/uL 2.0-7.7 [facility] Neutrophils/100 WBC (Bld) 73.0 % 47-70 [facility] Potassium [Moles/Vol] 4.4 mmol/L 3.5-5.1 [facility] Sodium [Moles/Vol] 133 mmol/L 136-145 [facility] WBC (Bld) [#/Vol] 12.5 10*3/uL 4.4-11.0 [facility] Bilirubin Test strip Ql (U)O rdered By: Harjit Vee on 01-23-2023 Bilirubin Ql (U) Negative Negative [facility] Blood erythrocytes count (nu mber/volume)Ordered By: Harjit Vee on 01-23-2023 RBC (Bld) [#/Vol] 3.65 10*6/uL 4.2-5.4 [facility] Blood hemoglobin measurement (mass/volume)Ordered By: Harjit Vee on 01-23-2023 Hemoglobin (Bld) [Mass/Vol] 10.1 g/dL 12.0-15.0 [facility] Blood lymphocytes/100 leukoc ytesOrdered By: Harjit Vee on 01-23-2023 Lymphocytes/100 WBC (Bld) 18.5 % 19-41 [facility] Blood monocytes/100 leukocyt esOrdered By: Harjit Vee on 01-23-2023 Monocytes/100 WBC (Bld) 6.3 % 0-10 [facility] Blood platelet mean volumeOr dered By: Harjit Vee on 01-23-2023 Platelet mean volume (Bld) [Entitic vol] 9.2 fL 6.2-12.0 [facility] Determination of erythrocyte mean corpuscular volume (MCV)Ordered By: Harjit Vee on 01-23-2023 MCV (RBC) [Entitic vol] 88.2 fL 81-99 [facility] Hematocrit Auto (Bld) [Volum e fraction]Ordered By: Harjit Vee on 01-23-2023 Hematocrit (Bld) [Volume fraction] 32.2 % 37-47 [facility] Ketones Test strip Ql (U)Ord ered By: Harjit Vee on 01-23-2023 Ketones Ql (U) Negative Negative [facility] Laboratory - Chemistry and C hemistry - challengeOrdered By: Harjit Vee on 01-23-2023 CO2 [Moles/Vol] 26.0 mmol/L 21.0-32.0 [facility] Urea nitrogen/Creatinine [Mass ratio] 26.4 mg/mg 10-20 [facility] Laboratory - Hematology and Cell countsOrdered By: Harjit Vee on 01-23-2023 Erythrocyte distribution width (RBC) [Entitic vol] 44.5 fL 35.1-43.9 [facility] Erythrocyte distribution width (RBC) [Ratio] 13.9 % 11.6-14.6 [facility] Immature granulocytes/100 WBC (Bld) 0.300 % 0.0-0.9 [facility] Comment on above: IG% - Immature Granu locytes (promyelocytes, myelocytes and metamyelocytes) > 1% indicates that a LEFT SHIFT is Present. MCH (RBC) [Entitic mass] 27.7 pg 27.0-32.0 [facility] Nucleated RBC/100 WBC (Bld) [Ratio] 0 % 0-5 [facility] [facility] MCHC Auto (RBC) [Mass/Vol]Or dered By: Harjit Vee on 01-23-2023 MCHC (RBC) [Mass/Vol] 31.4 g/dL 32-36 [facility] Mucus LM Ql (Urine sed)Order ed By: Harjit Vee on 01-23-2023 Mucus Ql (Urine sed) 0 SEEN /hpf [facility] Nitrite Test strip Ql (U)Ord ered By: Harjit Vee on 01-23-2023 Nitrite Ql (U) Negative Negative [facility] No Panel InformationOrdered By: Harjit Vee on 01-23-2023 D-Dimer Quantitative (PE/DVT) 1.63 FEU/ug/m 0.27-0.49 [facility] Comment on above: D-Dimer ELEVATED (>0 .49): Additional studies and clinicalassessments are indicated to conclude diagnosis of:Deep Vein Thrombosis (DVT) or Pulmonary Embolism (PE)CRITICAL VALUE VERIFIED. CALLED TO [facility] LAW03/26/22 [address].RESULTS READ BACK BY SAME . Estimated Creatinine Clearance Calc 45.05 ml/min [facility] Estimated GFR (MDRD) Amer 58 mL/min >60 [facility] Comment on above: GFR Calc Estimated GFR (MDRD) Non-Af Amer 48 mL/min >60 [facility] Comment on above: Non- GFR Calc Troponin I High Sensitivity 8 pg/mL 3.0-54.0 [facility] Comment on above: Please Note: New [place] t Units and Gender Specific Reference Ranges. For more information see Policy Stat Procedure [place] High Sensitivity Troponin (TNIH) and attachments. Platelets bldOrdered By: Severiano Vee on 01-23-2023 Platelets (Bld) [#/Vol] 408 10*3/uL 150-450 [facility] Protein Test strip Ql (U)Ord ered By: Harjit Vee on 01-23-2023 Protein Ql (U) 30 mg/dl Negative [facility] Serum or plasma calcium cortez urement (mass/volume)Ordered By: Harjit Vee on 01-23-2023 Calcium [Mass/Vol] 9.0 mg/dL 8.5-10.1 [facility] Serum or plasma creatinine m easurement (mass/volume)Ordered By: Harjit Vee on 01-23-2023 Creatinine [Mass/Vol] 1.21 mg/dL 0.55-1.02 [facility] Comment on above: The validity of the calculated GFR & GFRAA in patients over 70 years has not been determined. Clinical correlation is essential. Serum or plasma urea nitroge n measurement (mass/volume)Ordered By: Harjit Vee on 01-23-2023 Urea nitrogen [Mass/Vol] 32 mg/dL 7-18 [facility] Squamous epithelial cells de tection in urine sediment by light microscopyOrdered By: Harjit Vee on 01-23-2023 Epithelial cells.squamous LM Ql (Urine sed) 0-5 SEEN /hpf 5-10 [facility] Thin prep Papanicolaou smear with manual screeningOrdered By: Harjit Vee on 01-23-2023 Thin prep Papanicolaou smear with manual screening 5 5-15 [facility] Urine blood detectionOrdered By: Harjit Vee on 01-23-2023 RBC Ql (U) 10 /ul Negative [facility] RBC Ql (U) 0-5 SEEN /hpf 0-5 [facility] Urine clarityOrdered By: Severiano Vee on 01-23-2023 Clarity (U) Clear Clear [facility] Urine color determinationOrd ered By: Harjit Vee on 01-23-2023 Color (U) Yellow Yellow [facility] Urine glucose detectionOrder ed By: Harjit Vee on 01-23-2023 Glucose Ql (U) 1000 mg/dl Normal [facility] Urine leukocyte esterase det ection by dipstickOrdered By: Harjit Vee on 01-23-2023 Leukocyte esterase Test strip Ql (U) 25 /ul Negative [facility] Urine pHOrdered By: Harjit walker on 01-23-2023 pH (U) 5.0 [pH] 5.0 - 8.0 [facility] Urine sediment bacteria coun t by microscopy (number/high power field)Ordered By: Harjit Vee on 01-23-2023 Bacteria LM.HPF (Urine sed) [#/Area] 0 /[HPF] None Seen [facility] Urine specific gravity measu rementOrdered By: Harjit Vee on 01-23-2023 Specific gravity (U) [Rel density] 1.025 1.002-1.030 [facility] Urobilinogen Auto test strip Ql (U)Ordered By: Harjit Vee on 01-23-2023 Urobilinogen Ql (U) Normal mg/dl Normal [facility] Absolute lymphocyte countOrd ered By: Tasha Kim on 01-10-2023 Lymphocytes Auto (Unsp spec) [#/Vol] 3.15 10*3/uL 0.83-4.51 [facility] Basophil percentageOrdered B y: Tasha Kim on 01-10-2023 Basophils/100 WBC (Bld) 0.8 % 0-1 [facility] Bilirubin [Mass/Vol] 0.40 mg/dL 0.20-1.00 [facility] Comment on above: For patients on eltr ombopag therapy, use of Dimension [place] TBIL is not recommended. Chloride [Moles/Vol] 107 mmol/L 98-107 [facility] Eosinophils/100 WBC (Bld) 3.3 % 0-5 [facility] Glucose [Mass/Vol] 139 mg/dL 74-106 [facility] Comment on above: Fasting Glucose resu lt greater than or equal to 126 mg/dL suggests DIABETES MELLITUS per A.D.A. criteria. Neutrophils (Bld) [#/Vol] 6.0 10*3/uL 2.0-7.7 [facility] Neutrophils/100 WBC (Bld) 57.6 % 47-70 [facility] Potassium [Moles/Vol] 4.3 mmol/L 3.5-5.1 [facility] Protein [Mass/Vol] 6.2 g/dL 6.4-8.2 [facility] Sodium [Moles/Vol] 136 mmol/L 136-145 [facility] WBC (Bld) [#/Vol] 10.4 10*3/uL 4.4-11.0 [facility] Blood erythrocytes count (nu mber/volume)Ordered By: Tasha Kim on 01-10-2023 RBC (Bld) [#/Vol] 3.23 10*6/uL 4.2-5.4 [facility] Blood hemoglobin measurement (mass/volume)Ordered By: Tasha Kim on 01-10-2023 Hemoglobin (Bld) [Mass/Vol] 8.8 g/dL 12.0-15.0 [facility] Blood lymphocytes/100 leukoc ytesOrdered By: Tasha Kim on 01-10-2023 Lymphocytes/100 WBC (Bld) 30.2 % 19-41 [facility] Blood monocytes/100 leukocyt esOrdered By: Tasha Kim on 01-10-2023 Monocytes/100 WBC (Bld) 7.1 % 0-10 [facility] Blood platelet mean volumeOr dered By: Tasha Kim on 01-10-2023 Platelet mean volume (Bld) [Entitic vol] 9.6 fL 6.2-12.0 [facility] Determination of erythrocyte mean corpuscular volume (MCV)Ordered By: Tasha Kim on 01-10-2023 MCV (RBC) [Entitic vol] 87.3 fL 81-99 [facility] Glucose Glucometer (dC) [M ass/Vol]Ordered By: Tasha Kim on 01-10-2023 Glucose [Mass/Vol] 288 mg/dL 74-106 [facility] Comment on above: MANAGEMENT OF PATIEN T CARE PER NURSING PROTOCOL Hematocrit Auto (Bld) [Volum e fraction]Ordered By: Tasha Kim on 01-10-2023 Hematocrit (Bld) [Volume fraction] 28.2 % 37-47 [facility] Laboratory - Chemistry and C hemistry - challengeOrdered By: Tasha Kim on 01-10-2023 ALP [Catalytic activity/Vol] 359 U/L 45-117 [facility] ALT [Catalytic activity/Vol] 44 U/L 13-56 [facility] CO2 [Moles/Vol] 25.0 mmol/L 21.0-32.0 [facility] Globulin (S) [Mass/Vol] 4.2 g/dL 2.2-4.2 [facility] Urea nitrogen/Creatinine [Mass ratio] 22.7 mg/mg 10-20 [facility] Laboratory - Hematology and Cell countsOrdered By: Tasha Kim on 01-10-2023 Erythrocyte distribution width (RBC) [Entitic vol] 42.8 fL 35.1-43.9 [facility] Erythrocyte distribution width (RBC) [Ratio] 13.3 % 11.6-14.6 [facility] Immature granulocytes/100 WBC (Bld) 1.000 % 0.0-0.9 [facility] Comment on above: IG% - Immature Granu locytes (promyelocytes, myelocytes and metamyelocytes) > 1% indicates that a LEFT SHIFT is Present. MCH (RBC) [Entitic mass] 27.2 pg 27.0-32.0 [facility] Nucleated RBC/100 WBC (Bld) [Ratio] 0 % 0-5 [facility] MCHC Auto (RBC) [Mass/Vol]Or dered By: Tasha Kim on 01-10-2023 MCHC (RBC) [Mass/Vol] 31.2 g/dL 32-36 [facility] No Panel InformationOrdered By: Tasha Kim on 01-10-2023 Estimated Creatinine Clearance Calc 45.80 ml/min [facility] Estimated GFR (MDRD) Amer 60 mL/min >60 [facility] Comment on above: GFR Calc Estimated GFR (MDRD) Non-Af Amer 49 mL/min >60 [facility] Comment on above: Non- GFR Calc Platelets bldOrdered By: Dalila Kim on 01-10-2023 Platelets (Bld) [#/Vol] 317 10*3/uL 150-450 [facility] Serum or plasma albumin cortez urement (mass/volume)Ordered By: Tasha Kim on 01-10-2023 Albumin [Mass/Vol] 2.0 g/dL 3.2-5.0 [facility] Serum or plasma albumin/glob ulin mass ratioOrdered By: Tasha Kim on 01-10-2023 Albumin/Globulin [Mass ratio] 0.5 {ratio} 0.9-2.4 [facility] Serum or plasma calcium cortez urement (mass/volume)Ordered By: Tasha Kim on 01-10-2023 Calcium [Mass/Vol] 7.9 mg/dL 8.5-10.1 [facility] Serum or plasma creatinine m easurement (mass/volume)Ordered By: Tasha Kim on 01-10-2023 Creatinine [Mass/Vol] 1.19 mg/dL 0.55-1.02 [facility] Comment on above: The validity of the calculated GFR & GFRAA in patients over 70 years has not been determined. Clinical correlation is essential. Serum or plasma urea nitroge n measurement (mass/volume)Ordered By: Tasha Kim on 01-10-2023 Urea nitrogen [Mass/Vol] 27 mg/dL 7-18 [facility] Thin prep Papanicolaou smear with manual screeningOrdered By: Tasha Kim on 01-10-2023 Thin prep Papanicolaou smear with manual screening 37 U/L 15-37 [facility] Thin prep Papanicolaou smear with manual screening 4 5-15 [facility] Erythrocyte sedimentation ra teOrdered By: Tasha Kim on 01-09-2023 ESR (Bld) [Velocity] 82 mm/h 0-30 [facility] Gram stain for investigation of transfusion reactionOrdered By: Atul Cardozo on 01-09-2023 Microscopic observation Gram stain Nom (Unsp spec) [facility] Laboratory - Chemistry and C hemistry - challengeOrdered By: Tasha Kim on 01-09-2023 Magnesium [Mass/Vol] 2.1 mg/dL 1.6-2.6 [facility] Microbial respiratory cultur eOrdered By: Atul Cardozo on 01-09-2023 Bacteria identified Respiratory culture Nom (Unsp spec) [facility] Serum or plasma C reactive p rotein measurement (mass/volume)Ordered By: Tasha Kim on 01-09-2023 CRP [Mass/Vol] 132.00 mg/L 0.0-3.0 [facility] Comment on above: C-Reactive Protein ( CRP) provides useful information for thediagnosis, therapy and monitoring of inflammatory processesand associated diseases. For the evaluation of Relative Riskfor Cardiovascular Disease, a High Sensitivity CRP (HSCRP)should be ordered. Serum or plasma trough vanco mycin levelOrdered By: Tasha Kim on 01-09-2023 Vancomycin trough [Mass/Vol] 20.4 ug/mL 5.0-15.0 [facility] Comment on above: VANCOMYCIN STANDARED DRUG THERAPY TROUGH LEVEL: 5.0 - 15.0 mg/L VANCOMYCIN HIGH INTENSITY THERAPY TROUGH LEVEL: 15.0 - 20.0 mg/L High Intensity therapy recommended for serious lifethreatening infections include:- Yqcfobvyqb-Hgkahqemdlps-Atzlqdqma (Ventilator/Healtcare Associated)-Sepsis PLEASE CONTACT PHARMACY SERVICES (#[id number]) FOR INTERPRETATIONOF RESULTS. Serum or plasma vancomycin m easurement (mass/volume)Ordered By: Tasha Kim on 01-09-2023 Vancomycin [Mass/Vol] 15.7 ug/mL 0.0-15.0 [facility] Comment on above: VANCOMYCIN STANDARD DRUG THERAPY: CRITICAL VALUE IS > 15.0 mg/L VANCOMYCIN HIGH INTENSITY THERAPY: CRITICAL VALUE IS > 20.0 mg/L PLEASE CONTACT PHARMACY SERVICES (#[id number]) FOR INTERPRETATIONOF RESULTS. THIS RESULT DOES NOT REPRESENT A PEAK OR TROUGHLEVEL FOR THIS DRUG. Serum procalcitonin measurem entOrdered By: Tasha Kim on 01-09-2023 Procalcitonin [Mass/Vol] 3.15 ng/mL 0.00-0.09 [facility] Comment on above: A procalcitonin (PCT ) [...] if any concentrations <2 ng/mL are obtained. Assessment of wrist artery p atency prior to arterial punctureOrdered By: Tasha Kim on 01-07-2023 Arterial patency Wrist artery --pre arterial puncture Positive [facility] Base excessOrdered By: Tasha Kim on 01-07-2023 Base excess Calc (BldV) [Moles/Vol] -1 mmol/L -2-2 [facility] Basophil percentageOrdered B y: Tasha Kim on 01-07-2023 Lactate [Moles/Vol] 1.8 mmol/L 0.4-[facility].0 [facility] Basophil percentage 0-5 SEEN /hpf 0-5 [facility] Basophil percentage 21.4 mmol/L 22-26 [facility] Basophils/100 WBC (Bld) 99 % 95-99 [facility] Bilirubin Test strip Ql (U)O rdered By: Tasha Kim on 01-07-2023 Bilirubin Ql (U) Negative Negative [facility] Blood platelet adequacy dete ction by light microscopyOrdered By: Tasha Kim on 01-07-2023 Platelets LM Ql (Bld) ADEQUATE ADEQ [facility] CO2 (BldA) [Partial pressure ]Ordered By: Tasha Kim on 01-07-2023 CO2 (Bld) [Partial pressure] 25.2 mm[Hg] 35-45 [facility] Culture, urineOrdered By: Talia Kim on 01-07-2023 Bacteria identified Cx Nom (U) Culture exhibits no growth. [facility] Ketones Test strip Ql (U)Ord ered By: Tasha Kim on 01-07-2023 Ketones Ql (U) Negative Negative [facility] Laboratory - Chemistry and C hemistry - challengeOrdered By: Tasha Kim on 01-07-2023 Sodium (U) [Moles/Vol] 26 mmol/L Not Establ. [facility] Free T4 [Mass/Vol] 1.23 ng/dL 0.76-1.46 [facility] Cobalamin (Vitamin B12) [Mass/Vol] 240 pg/mL 211-911 [facility] Natriuretic peptide B (Bld) [Mass/Vol] 133.3 pg/mL 0-100 [facility] Laboratory - Microbiology an d Antimicrobial susceptibilityOrdered By: Tasha Kim on 01-07-2023 Bacteria identified Cx Nom (Bld) No growth in 5 days. [facility] Mucus LM Ql (Urine sed)Order ed By: Tasha Kim on 01-07-2023 Mucus Ql (Urine sed) 0 SEEN /hpf [facility] Nitrite Test strip Ql (U)Ord ered By: Tasha Kim on 01-07-2023 Nitrite Ql (U) Negative Negative [facility] No Panel InformationOrdered By: Tasha Kim on 01-07-2023 Methicillin-Resist S.aureus DNA PCR Negative Negative [facility] Urine Potassium 22.0 mmol/L Not Establ. [facility] Urine Urea Nitrogen 691 mg/dL NO RANGE EST. [facility] Thyroid Stimulating Hormone (TSH) 0.75 uIU/mL 0.358-3.74 [facility] Vitamin D 25-Hydroxy 8.1 ng/mL [facility] Comment on above: Vitamin D 25(OH) Sta tus Range Deficiency <20 ng/mL (50nmol/L) Insufficiency 20 - 30 ng/mL (50 - 75 nmol/L) Sufficiency 30 - 100 ng/mL (75 - 250 nmol/L) Toxicity >100 ng/mL (>250 nmol/L) Blood Gas Oxygen Percent 3.0 [facility] Blood Gas Sample Site L Radial [facility] Blood Gas Specimen Type ART [facility] Blood Gas Total CO2 22 mmol/L [facility] Blood Gas Vent Mode Not entered [facility] Oxygen Delivery Device Cannula [facility] Oxygen (BldA) [Partial press ure]Ordered By: Tasha Kim on 01-07-2023 Oxygen (Bld) [Partial pressure] 127 mmHG 75-100 [facility] Protein Test strip Ql (U)Ord ered By: Tasha Kim on 01-07-2023 Protein Ql (U) 30 mg/dl Negative [facility] Serum or plasma folate measu rement (mass/volume)Ordered By: Tasha Kim on 01-07-2023 Folate [Mass/Vol] 16.40 ng/mL 3.1-55.4 [facility] Squamous epithelial cells de tection in urine sediment by light microscopyOrdered By: Tasha Kim on 01-07-2023 Epithelial cells.squamous LM Ql (Urine sed) 0-5 SEEN /hpf 5-10 [facility] Thin prep Papanicolaou smear with manual screeningOrdered By: Tasha Kim on 01-07-2023 Thin prep Papanicolaou smear with manual screening 14 mmol/L Not Establ. [facility] Thin prep Papanicolaou smear with manual screening 284 mOsm/KG 275-295 [facility] Urine blood detectionOrdered By: Tasha Kim on 01-07-2023 RBC Ql (U) 150 /ul Negative [facility] RBC Ql (U) 0-5 SEEN /hpf 0-5 [facility] Urine clarityOrdered By: Dalila Kim on 01-07-2023 Clarity (U) Sl. Cloudy Clear [facility] Urine color determinationOrd ered By: Tasha Kim on 01-07-2023 Color (U) Yellow Yellow [facility] Urine creatinine measurement (mass/volume)Ordered By: Tasha Kim on 01-07-2023 Creatinine (U) [Mass/Vol] 71.70 mg/dL NO RANGE EST. [facility] Urine glucose detectionOrder ed By: Tasha Kim on 01-07-2023 Glucose Ql (U) 100 mg/dl Normal [facility] Urine leukocyte esterase det ection by dipstickOrdered By: Tasha Kim on 01-07-2023 Leukocyte esterase Test strip Ql (U) 100 /ul Negative [facility] Urine osmolality measurement Ordered By: Tasha Kim on 01-07-2023 Osmolality (U) [Osmolality] 401 mOsm/KG >50 [facility] Comment on above: Normal Urine Referen ce Ranges Random: 50 - 1200 mOsm/kg H20 depending on fluid intake Random: >850 mOsm/kg after 12 hour fluid restriction 24 hour: ~300 - 900 mOsm/kg H2O Urine pHOrdered By: Tasha yeung on 01-07-2023 pH (U) 6.0 [pH] 5.0 - 8.0 [facility] Urine sediment bacteria coun t by microscopy (number/high power field)Ordered By: Tasha Kim on 01-07-2023 Bacteria LM.HPF (Urine sed) [#/Area] RARE /hpf None Seen [facility] Urine specific gravity measu rementOrdered By: Tasha Kim on 01-07-2023 Specific gravity (U) [Rel density] 1.015 1.002-1.030 [facility] Urobilinogen Auto test strip Ql (U)Ordered By: Tasha Kim on 01-07-2023 Urobilinogen Ql (U) Normal mg/dl Normal [facility] pH measurementOrdered By: Talia Kim on 01-07-2023 pH (Unsp spec) 7.54 [pH] 7.35-7.45 [facility] Laboratory - CoagulationOrde red By: Atul Cardozo on 01-06-2023 aPTT Coag (Bld) [Time] 39.4 s 24.1-36.2 [facility] Absolute lymphocyte countOrd ered By: Harjitlawrence Vee on 01-05-2023 Lymphocytes Auto (Unsp spec) [#/Vol] 0.42 10*3/uL 0.83-4.51 [facility] Basophil percentageOrdered B y: Harjit Vee on 01-05-2023 Basophils/100 WBC (Bld) 0.3 % 0-1 [facility] Bilirubin [Mass/Vol] 1.10 mg/dL 0.20-1.00 [facility] Comment on above: For patients on eltr ombopag therapy, use of Dimension [place] TBIL is not recommended. Chloride [Moles/Vol] 100 mmol/L 98-107 [facility] Eosinophils/100 WBC (Bld) 0.1 % 0-5 [facility] Glucose [Mass/Vol] 335 mg/dL 74-106 [facility] Comment on above: Glucose result great er than or equal to 200 mg/dLsuggests DIABETES MELLITUS per A.D.A. criteria. Neutrophils (Bld) [#/Vol] 13.3 10*3/uL 2.0-7.7 [facility] Neutrophils/100 WBC (Bld) 89.6 % 47-70 [facility] Potassium [Moles/Vol] 4.6 mmol/L 3.5-5.1 [facility] Protein [Mass/Vol] 7.2 g/dL 6.4-8.2 [facility] Sodium [Moles/Vol] 132 mmol/L 136-145 [facility] WBC (Bld) [#/Vol] 14.8 10*3/uL 4.4-11.0 [facility] Blood erythrocytes count (nu mber/volume)Ordered By: Harjit Vee on 01-05-2023 RBC (Bld) [#/Vol] 3.70 10*6/uL 4.2-5.4 [facility] Blood hemoglobin measurement (mass/volume)Ordered By: Harjit Vee on 01-05-2023 Hemoglobin (Bld) [Mass/Vol] 10.3 g/dL 12.0-15.0 [facility] Blood lymphocytes/100 leukoc ytesOrdered By: Harjit Vee on 01-05-2023 Lymphocytes/100 WBC (Bld) 2.8 % 19-41 [facility] Blood manual differential co mment interpretation (narrative result)Ordered By: Harjit Vee on 01-05-2023 Manual differential comment Liban (Bld) [Interp] SCANNED [facility] Blood monocytes/100 leukocyt esOrdered By: Harjit Vee on 01-05-2023 Monocytes/100 WBC (Bld) 6.7 % 0-10 [facility] Blood platelet mean volumeOr dered By: Harjit Vee on 01-05-2023 Platelet mean volume (Bld) [Entitic vol] 9.7 fL 6.2-12.0 [facility] Determination of erythrocyte mean corpuscular volume (MCV)Ordered By: Harjit Vee on 01-05-2023 MCV (RBC) [Entitic vol] 89.7 fL 81-99 [facility] Hematocrit Auto (Bld) [Volum e fraction]Ordered By: Harjit Vee on 01-05-2023 Hematocrit (Bld) [Volume fraction] 33.2 % 37-47 [facility] INR in Blood by Coagulation assayOrdered By: Atul Cardozo on 01-05-2023 INR Coag (Bld) [Relative time] 1.1 {INR} [facility] Iron measurement (mass/mass) Ordered By: Atul Cardozo on 01-05-2023 Iron (Unsp spec) [Mass/Mass] 9 ug/dL 50-170 [facility] Laboratory - Chemistry and C hemistry - challengeOrdered By: Harjit Vee on 01-05-2023 ALP [Catalytic activity/Vol] 187 U/L 45-117 [facility] ALT [Catalytic activity/Vol] 41 U/L 13-56 [facility] CO2 [Moles/Vol] 24.0 mmol/L 21.0-32.0 [facility] Globulin (S) [Mass/Vol] 4.5 g/dL 2.2-4.2 [facility] Natriuretic peptide B (Bld) [Mass/Vol] 276.9 pg/mL 0-100 [facility] Urea nitrogen/Creatinine [Mass ratio] 21.5 mg/mg 10-20 [facility] Laboratory - CoagulationOrde red By: Atul Cardozo on 01-05-2023 aPTT Coag (Bld) [Time] 31.6 s 24.1-36.2 [facility] PT Coag (PPP) [Time] 14.3 s 11.7-14.9 [facility] Laboratory - Hematology and Cell countsOrdered By: Harjit Vee on 01-05-2023 Erythrocyte distribution width (RBC) [Entitic vol] 41.9 fL 35.1-43.9 [facility] Erythrocyte distribution width (RBC) [Ratio] 12.6 % 11.6-14.6 [facility] Immature granulocytes/100 WBC (Bld) 0.500 % 0.0-0.9 [facility] Comment on above: IG% - Immature Granu locytes (promyelocytes, myelocytes and metamyelocytes) > 1% indicates that a LEFT SHIFT is Present. MCH (RBC) [Entitic mass] 27.8 pg 27.0-32.0 [facility] Nucleated RBC/100 WBC (Bld) [Ratio] 0 % 0-5 [facility] MCHC Auto (RBC) [Mass/Vol]Or dered By: Harjit Vee on 01-05-2023 MCHC (RBC) [Mass/Vol] 31.0 g/dL 32-36 [facility] No Panel InformationOrdered By: Atul Cardozo on 01-05-2023 Total Iron Binding Capacity 256 ug/dL 250-450 [facility] Troponin I High Sensitivity 443 pg/mL 3.0-54.0 [facility] Comment on above: Critical Result(s) C alled at: 19:10:25 01/05/2023 by: Viviane LOMBARDO. Results read back by same. Please Note: New Test Units and Gender Specific Reference Ranges. For more information see Policy Stat Procedure [place] High Sensitivity Troponin (TNIH) and attachments. No Panel InformationOrdered By: Harjit Vee on 01-05-2023 Troponin I High Sensitivity 491 pg/mL 3.0-54.0 [facility] Comment on above: Critical Result(s) C alled at: 12:32:46 01/05/2023 by: Azael Velez. Frank Lockhart RN (ER). Results read back by same. Please Note: New Test Units and Gender Specific Reference Ranges. For more information see Policy Stat Procedure [place] High Sensitivity Troponin (TNIH) and attachments. Estimated Creatinine Clearance Calc 37.85 ml/min [facility] Estimated GFR (MDRD) Amer 48 mL/min >60 [facility] Comment on above: GFR Calc Estimated GFR (MDRD) Non-Af Amer 40 mL/min >60 [facility] Comment on above: Non- GFR Calc Platelets bldOrdered By: Severiano Vee on 01-05-2023 Platelets (Bld) [#/Vol] 272 10*3/uL 150-450 [facility] Serum or plasma albumin cortez urement (mass/volume)Ordered By: Harjit Vee on 01-05-2023 Albumin [Mass/Vol] 2.7 g/dL 3.2-5.0 [facility] Serum or plasma albumin/glob ulin mass ratioOrdered By: Harjit Vee on 01-05-2023 Albumin/Globulin [Mass ratio] 0.6 {ratio} 0.9-2.4 [facility] Serum or plasma calcium cortez urement (mass/volume)Ordered By: Harjit Vee on 01-05-2023 Calcium [Mass/Vol] 9.0 mg/dL 8.5-10.1 [facility] Serum or plasma creatinine m easurement (mass/volume)Ordered By: Harjit Vee on 01-05-2023 Creatinine [Mass/Vol] 1.44 mg/dL 0.55-1.02 [facility] Comment on above: The validity of the calculated GFR & GFRAA in patients over 70 years has not been determined. Clinical correlation is essential. Serum or plasma ferritin kiran surement (mass/volume)Ordered By: Atul Cardozo on 01-05-2023 Ferritin [Mass/Vol] 285 ng/mL [facility] Serum or plasma iron saturat ion measurement (mass fraction)Ordered By: Atul Cardozo on 01-05-2023 Iron saturation [Mass fraction] 3.5 % 15.0-55.0 [facility] Serum or plasma urea nitroge n measurement (mass/volume)Ordered By: Harjit Vee on 01-05-2023 Urea nitrogen [Mass/Vol] 31 mg/dL 7-18 [facility] Thin prep Papanicolaou smear with manual screeningOrdered By: Harjit Vee on 01-05-2023 Thin prep Papanicolaou smear with manual screening 31 U/L 1537 [facility] Thin prep Papanicolaou smear with manual screening 8 5-15 [facility] Whole blood hemoglobin A1c/t otal hemoglobin ratio (mass fraction)Ordered By: Atul Cardozo on 01-05-2023 HbA1c (Bld) [Mass fraction] 10.4 % 3.8-5.6 [facility] Comment on above: Normal < 5.7 % Predi abetic 5.7 - 6.4 % Diabetic >or= 6.5 % Please note range changes. Absolute lymphocyte countOrd ered By: Issac Jose on 09-27-2022 Lymphocytes Auto (Unsp spec) [#/Vol] 2.24 10*3/uL 0.83-4.51 [facility] Basophil percentageOrdered B y: Issac Jose on 09-27-2022 Basophils/100 WBC (Bld) 0.5 % 0-1 [facility] Bilirubin [Mass/Vol] 0.60 mg/dL 0.20-1.00 [facility] Comment on above: For patients on eltr ombopag therapy, use of Dimension [place] TBIL is not recommended. Chloride [Moles/Vol] 98 mmol/L 98-107 [facility] Eosinophils/100 WBC (Bld) 0.9 % 0-5 [facility] Glucose [Mass/Vol] 475 mg/dL 74-106 [facility] Comment on above: Glucose result great er than or equal to 200 mg/dLsuggests DIABETES MELLITUS per A.D.A. criteria. Neutrophils (Bld) [#/Vol] 10.0 10*3/uL 2.0-7.7 [facility] Neutrophils/100 WBC (Bld) 75.1 % 47-70 [facility] Potassium [Moles/Vol] 4.2 mmol/L 3.5-5.1 [facility] Protein [Mass/Vol] 6.6 g/dL 6.4-8.2 [facility] Sodium [Moles/Vol] 131 mmol/L 136-145 [facility] WBC (Bld) [#/Vol] 13.3 10*3/uL 4.4-11.0 [facility] Blood erythrocytes count (nu mber/volume)Ordered By: Issac Jose on 09-27-2022 RBC (Bld) [#/Vol] 4.01 10*6/uL 4.2-5.4 [facility] Blood hemoglobin measurement (mass/volume)Ordered By: Issac Jose on 09-27-2022 Hemoglobin (Bld) [Mass/Vol] 11.4 g/dL 12.0-15.0 [facility] Blood lymphocytes/100 leukoc ytesOrdered By: Issac Jose on 09-27-2022 Lymphocytes/100 WBC (Bld) 16.8 % 19-41 [facility] Blood monocytes/100 leukocyt esOrdered By: Issac Jose on 09-27-2022 Monocytes/100 WBC (Bld) 6.3 % 0-10 [facility] Blood platelet mean volumeOr dered By: Issac Jose on 09-27-2022 Platelet mean volume (Bld) [Entitic vol] 9.6 fL 6.2-12.0 [facility] Determination of erythrocyte mean corpuscular volume (MCV)Ordered By: Issac Jose on 09-27-2022 MCV (RBC) [Entitic vol] 88.8 fL 81-99 [facility] Hematocrit Auto (Bld) [Volum e fraction]Ordered By: Issac Jose on 09-27-2022 Hematocrit (Bld) [Volume fraction] 35.6 % 37-47 [facility] Laboratory - Chemistry and C hemistry - challengeOrdered By: Issac Jose on 09-27-2022 ALP [Catalytic activity/Vol] 128 U/L 45-117 [facility] ALT [Catalytic activity/Vol] 22 U/L 13-56 [facility] CO2 [Moles/Vol] 27.0 mmol/L 21.0-32.0 [facility] Globulin (S) [Mass/Vol] 3.7 g/dL 2.2-4.2 [facility] Urea nitrogen/Creatinine [Mass ratio] 13.8 mg/mg 10-20 [facility] Laboratory - Hematology and Cell countsOrdered By: Issac Jose on 09-27-2022 Erythrocyte distribution width (RBC) [Entitic vol] 41.9 fL 35.1-43.9 [facility] Erythrocyte distribution width (RBC) [Ratio] 12.8 % 11.6-14.6 [facility] Immature granulocytes/100 WBC (Bld) 0.400 % 0.0-0.9 [facility] Comment on above: IG% - Immature Granu locytes (promyelocytes, myelocytes and metamyelocytes) > 1% indicates that a LEFT SHIFT is Present. MCH (RBC) [Entitic mass] 28.4 pg 27.0-32.0 [facility] Nucleated RBC/100 WBC (Bld) [Ratio] 0 % 0-5 [facility] MCHC Auto (RBC) [Mass/Vol]Or dered By: Issac Jose on 09-27-2022 MCHC (RBC) [Mass/Vol] 32.0 g/dL 32-36 [facility] No Panel InformationOrdered By: Issac Jose on 09-27-2022 Estimated Creatinine Clearance Calc 34.07 ml/min [facility] Estimated GFR (MDRD) Amer 42 mL/min >60 [facility] Comment on above: GFR Calc Estimated GFR (MDRD) Non-Af Amer 35 mL/min >60 [facility] Comment on above: Non- GFR Calc Troponin I High Sensitivity 26 pg/mL 3.0-54.0 [facility] Comment on above: Critical Result(s) C alled at: 16:24:10 09/27/2022 by: Elba Callaway to Jeannie Penny. Results read back by same. Please Note: New Test Units and Gender Specific Reference Ranges. For more information see Policy Stat Procedure [place] High Sensitivity Troponin (TNIH) and attachments. Platelets bldOrdered By: Jennifer Jose on 09-27-2022 Platelets (Bld) [#/Vol] 394 10*3/uL 150-450 [facility] Serum or plasma albumin cortez urement (mass/volume)Ordered By: Issac Jose on 09-27-2022 Albumin [Mass/Vol] 2.9 g/dL 3.2-5.0 [facility] Serum or plasma albumin/glob ulin mass ratioOrdered By: Issac Jose on 09-27-2022 Albumin/Globulin [Mass ratio] 0.8 {ratio} 0.9-2.4 [facility] Serum or plasma calcium cortez urement (mass/volume)Ordered By: Issac Jose on 09-27-2022 Calcium [Mass/Vol] 8.4 mg/dL 8.5-10.1 [facility] Serum or plasma creatinine m easurement (mass/volume)Ordered By: Issac Jose on 09-27-2022 Creatinine [Mass/Vol] 1.60 mg/dL 0.55-1.02 [facility] Comment on above: The validity of the calculated GFR & GFRAA in patients over 70 years has not been determined. Clinical correlation is essential. Serum or plasma urea nitroge n measurement (mass/volume)Ordered By: Issac Jose on 09-27-2022 Urea nitrogen [Mass/Vol] 22 mg/dL 7-18 [facility] Thin prep Papanicolaou smear with manual screeningOrdered By: Issac Jose on 09-27-2022 Thin prep Papanicolaou smear with manual screening 15 U/L 15-37 [facility] Thin prep Papanicolaou smear with manual screening 6 5-15 [facility] Basophil percentageOrdered B y: Pato Mccall on 06-03-2022 Bilirubin [Mass/Vol] 0.50 mg/dL 0.20-1.00 [facility] Comment on above: For patients on eltr ombopag therapy, use of Dimension [place] TBIL is not recommended. Chloride [Moles/Vol] 102 mmol/L 98-107 [facility] Cholesterol [Mass/Vol] 127 mg/dL <200 [facility] Comment on above: <200 mg/dL Desirable 200-240 mg/dL Borderline >240 mg/dL High Risk Glucose [Mass/Vol] 173 mg/dL 74-106 [facility] Comment on above: Fasting Glucose resu lt greater than or equal to 126 mg/dL suggests DIABETES MELLITUS per A.D.A. criteria. Potassium [Moles/Vol] 4.5 mmol/L 3.5-5.1 [facility] Protein [Mass/Vol] 7.0 g/dL 6.4-8.2 [facility] Sodium [Moles/Vol] 132 mmol/L 136-145 [facility] Triglyceride [Mass/Vol] 81 mg/dL <199 [facility] Comment on above: The drugs N-Acetylcy steine and Metamizole may falsely depress this assay.Serum Triglycerides Reference Interval Normal <150 mg/dL Borderline high 150 - 199 mg/dL High 200 - 499 mg/dL Very High > or = 500 mg/dL Laboratory - Chemistry and C hemistry - challengeOrdered By: Pato Mccall on 06-03-2022 ALP [Catalytic activity/Vol] 130 U/L 45-117 [facility] ALT [Catalytic activity/Vol] 25 U/L 13-56 [facility] CO2 [Moles/Vol] 27.0 mmol/L 21.0-32.0 [facility] Globulin (S) [Mass/Vol] 4.1 g/dL 2.2-4.2 [facility] Urea nitrogen/Creatinine [Mass ratio] 19.4 mg/mg 10-20 [facility] No Panel InformationOrdered By: Pato Mccall on 06-03-2022 Estimated GFR (MDRD) Amer 80 mL/min >60 [facility] Comment on above: GFR Calc Estimated GFR (MDRD) Non-Af Amer 66 mL/min >60 [facility] Comment on above: Non- GFR Calc Vitamin D 25-Hydroxy 23.1 ng/mL [facility] Comment on above: Vitamin D 25(OH) Sta tus Range Deficiency <20 ng/mL (50nmol/L) Insufficiency 20 - 30 ng/mL (50 - 75 nmol/L) Sufficiency 30 - 100 ng/mL (75 - 250 nmol/L) Toxicity >100 ng/mL (>250 nmol/L) Serum or plasma albumin cortez urement (mass/volume)Ordered By: Pato Mccall on 06-03-2022 Albumin [Mass/Vol] 2.9 g/dL 3.2-5.0 [facility] Serum or plasma albumin/glob ulin mass ratioOrdered By: Pato Mccall on 06-03-2022 Albumin/Globulin [Mass ratio] 0.7 {ratio} 0.9-2.4 [facility] Serum or plasma calcium cortez urement (mass/volume)Ordered By: Pato Mccall on 06-03-2022 Calcium [Mass/Vol] 8.7 mg/dL 8.5-10.1 [facility] Serum or plasma cholesterol in HDL measurement (mass/volume)Ordered By: Pato Mccall on 06-03-2022 Cholesterol in HDL [Mass/Vol] 52 mg/dL >40 [facility] Comment on above: The drugs N-Acetylcy steine and Metamizole may falsely depress this assay. Reference Range HDL <40 mg/dL Low HDL Cholesterol HDL >or= 60 mg/dL High HDL Cholesterol Serum or plasma cholesterol in VLDL measurement (mass/volume)Ordered By: Pato Mccall on 06-03-2022 Cholesterol in VLDL [Mass/Vol] 16 mg/dL 5-40 [facility] Serum or plasma creatinine m easurement (mass/volume)Ordered By: Pato Mccall on 06-03-2022 Creatinine [Mass/Vol] 0.93 mg/dL 0.55-1.02 [facility] Comment on above: The validity of the calculated GFR & GFRAA in patients over 70 years has not been determined. Clinical correlation is essential. Serum or plasma low density lipoprotein (LDL) cholesterol measurement (mass/volume)Ordered By: Pato Mccall on 06-03-2022 Cholesterol in LDL [Mass/Vol] 59 mg/dL 0-130 [facility] Serum or plasma urea nitroge n measurement (mass/volume)Ordered By: Pato Mccall 06-03-2022 Urea nitrogen [Mass/Vol] 18 mg/dL 7-18 [facility] Thin prep Papanicolaou smear with manual screeningOrdered By: Pato Mccall 06-03-2022 Thin prep Papanicolaou smear with manual screening 18 U/L 15-37 [facility] Thin prep Papanicolaou smear with manual screening 3 5-15 [facility] Whole blood hemoglobin A1c/t otal hemoglobin ratio (mass fraction)Ordered By: Pato Mccall on 06-03-2022 HbA1c (Bld) [Mass fraction] 11.8 % 3.8-5.6 [facility] Comment on above: Normal < 5.7 % Predi abetic 5.7 - 6.4 % Diabetic >or= 6.5 % Please note range changes. LABORATORYOrdered By: Sangeetha subramanian on 11-17-2021 Glucose [Mass/Vol] 123 mg/dL High 70 - 110 mg/dL [facility] Work Phone: Basophil percentageon 2021 Bilirubin [Mass/Vol] 0.30 mg/dL 0.20-1.00 [facility] Work Phone: Comment on above: For patients on eltr ombopag therapy, use of Dimension [place] TBIL is not recommended. Chloride [Moles/Vol] 105 mmol/L 98-107 [facility] Work Phone: Cholesterol [Mass/Vol] 176 mg/dL <200 [facility] Work Phone: Comment on above: <200 mg/dL Desirable 200-240 mg/dL Borderline >240 mg/dL High Risk Glucose [Mass/Vol] 203 mg/dL 74-106 [facility] Work Phone: Comment on above: Glucose result great er than or equal to 200 mg/dLsuggests DIABETES MELLITUS per A.D.A. criteria. Potassium [Moles/Vol] 5.4 mmol/L 3.5-5.1 [facility] Work Phone: Protein [Mass/Vol] 7.3 g/dL 6.4-8.2 [facility] Work Phone: Sodium [Moles/Vol] 139 mmol/L 136-145 [facility] Work Phone: Triglyceride [Mass/Vol] 85 mg/dL <199 [facility] Work Phone: Comment on above: The drugs N-Acetylcy steine and Metamizole may falsely depress this assay.Serum Triglycerides Reference Interval Normal <150 mg/dL Borderline high 150 - 199 mg/dL High 200 - 499 mg/dL Very High > or = 500 mg/dL Laboratory - Chemistry and C hemistry - challengeon 11-01-2021 ALP [Catalytic activity/Vol] 103 U/L 45-117 [facility] Work Phone: [phone] ALT [Catalytic activity/Vol] 17 U/L 13-56 [facility] Work Phone: [phone] CO2 [Moles/Vol] 29.0 mmol/L 21.0-32.0 [facility] Work Phone: [phone] Globulin (S) [Mass/Vol] 4.3 g/dL 2.2-4.2 [facility] Work Phone: [phone] Urea nitrogen/Creatinine [Mass ratio] 24.4 mg/mg 10-20 [facility] Work Phone: [phone] No Panel Informationon 11-01 Estimated GFR (MDRD) Amer 87 mL/min >60 [facility] Work Phone: Comment on above: GFR Calc Estimated GFR (MDRD) Non-Af Amer 72 mL/min >60 [facility] Work Phone: Comment on above: Non- GFR Calc Serum or plasma albumin cortez urement (mass/volume)on 11-01-2021 Albumin [Mass/Vol] 3.0 g/dL 3.2-5.0 [facility] Work Phone: [phone] Serum or plasma albumin/glob ulin mass ratioon 11-01-2021 Albumin/Globulin [Mass ratio] 0.7 {ratio} 0.9-2.4 [facility] Work Phone: [phone] Serum or plasma calcium cortez urement (mass/volume)on 11-01-2021 Calcium [Mass/Vol] 8.7 mg/dL 8.5-10.1 [facility] Work Phone: [phone] Serum or plasma cholesterol in HDL measurement (mass/volume)on 11-01-2021 Cholesterol in HDL [Mass/Vol] 45 mg/dL >40 [facility] Work Phone: Comment on above: The drugs N-Acetylcy steine and Metamizole may falsely depress this assay. Reference Range HDL <40 mg/dL Low HDL Cholesterol HDL >or= 60 mg/dL High HDL Cholesterol Serum or plasma cholesterol in VLDL measurement (mass/volume)on 11-01-2021 Cholesterol in VLDL [Mass/Vol] 17 mg/dL 5-40 [facility] Work Phone: [phone] Serum or plasma creatinine m easurement (mass/volume)on 11-01-2021 Creatinine [Mass/Vol] 0.86 mg/dL 0.55-1.02 [facility] Work Phone: Comment on above: The validity of the calculated GFR & GFRAA in patients over 70 years has not been determined. Clinical correlation is essential. Serum or plasma low density lipoprotein (LDL) cholesterol measurement (mass/volume)on 11-01-2021 Cholesterol in LDL [Mass/Vol] 114 mg/dL 0-130 [facility] Work Phone: Serum or plasma urea nitroge n measurement (mass/volume)on 11-01-2021 Urea nitrogen [Mass/Vol] 21 mg/dL 7-18 [facility] Work Phone: Thin prep Papanicolaou smear with manual screeningon 11-01-2021 Thin prep Papanicolaou smear with manual screening 10 U/L 15-37 [facility] Work Phone: [phone] Thin prep Papanicolaou smear with manual screening 5 5-15 [facility] Work Phone: [phone] Whole blood hemoglobin A1c/t otal hemoglobin ratio (mass fraction)on 11-01-2021 HbA1c (Bld) [Mass fraction] 10.0 % 3.8-5.6 [facility] Work Phone: Comment on above: Normal < 5.7 % Predi abetic 5.7 - 6.4 % Diabetic >or= 6.5 % Please note range changes. LABORATORYOrdered By: Sangeetha subramanian on 09-07-2022 Glucose [Mass/Vol] 171 mg/dL High 70 - 110 mg/dL [facility] Work Phone: LABORATORYOrdered By: Sangeetha subramanian on 08-21-2021 Glucose [Mass/Vol] 301 mg/dL High 70 - 110 mg/dL [facility] Work Phone: Vital Signs Date Time Vital Sign Value Performing Clinician Facility 07-23-2024 23:52-0400 Body temperature 98.4 [degF] Pato Mccall [facility] Work Phone: [facility] 07-23-2024 23:52-0400 Diastolic blood pressure 69 mm[Hg] Pato Mccall [facility] Work Phone: [facility] 07-23-2024 23:52-0400 Heart rate 85 /min Pato Mccall [facility] Work Phone: [facility] 07-23-2024 23:52-0400 Respiratory rate 18 /min Pato Mccall [facility] Work Phone: [facility] 07-23-2024 23:52-0400 SaO2% (BldA) [Mass fraction] 99 % Pato Mccall [facility] Work Phone: [facility] 07-23-2024 23:52-0400 Systolic blood pressure 178 mm[Hg] Pato Mccall [facility] Work Phone: [facility] 07-23-2024 20:28-0400 Body mass index (BMI) [Ratio] 56 kg/m2 Pato Mccall [facility] Work Phone: [facility] 07-23-2024 20:28-0400 Body weight 152.7 kg Pato Mccall [facility] Work Phone: [facility] 07-23-2024 20:25-0400 Body height 165.1 cm Pato Mccall [facility] Work Phone: [facility] 03-31-2023 10:25-0500 Body height 165.1 cm [facility] Pato Mccall [facility] Work Phone: [facility] 03-31-2023 10:25-0500 Body mass index (BMI) [Ratio] 58.2 kg/m2 [facility] Pato Mccall [facility] Work Phone: [facility] 03-31-2023 10:25-0500 Body weight 158.75 kg [facility] Pato Mccall [facility] Work Phone: [facility] 03-31-2023 10:25-0500 Diastolic blood pressure 69 mm[Hg] [facility] Pato Mccall ST[facility]ENDER Work Phone: [facility] 03-31-2023 10:25-0500 Heart rate 77 /min [facility] Pato Mccall [facility] Work Phone: [facility] 03-31-2023 10:25-0500 Respiratory rate 20 /min [facility] Pato Mccall [facility] Work Phone: [facility] 03-31-2023 10:25-0500 Systolic blood pressure 150 mm[Hg] [facility] Pato Mccall [facility] Work Phone: [facility] 03-03-2023 21:44-0500 Diastolic blood pressure 40 mm[Hg] [facility] Pato Mccall [facility] Work Phone: [facility] 03-03-2023 21:44-0500 Heart rate 82 /min [facility] Pato Mccall [facility]END[facility] Work Phone: [facility] 03-03-2023 21:44-0500 Respiratory rate 16 /min [facility] Pato Mccall ST[facility]ENDER Work Phone: [facility] 03-03-2023 21:44-0500 SaO2% (BldA) [Mass fraction] 97 % [facility] Pato Mccall ST[facility] TENDER Work Phone: [facility] 03-03-2023 21:44-0500 Systolic blood pressure 164 mm[Hg] [facility] Pato Mccall ST[facility]ENDER Work Phone: [facility] 03-03-2023 19:50-0500 Body temperature 97 [degF] [facility] Pato Allenpkins ST[facility] TENDER Work Phone: [facility] 03-03-2023 18:57-0500 Body mass index (BMI) [Ratio] 56.5 kg/m2 [facility] Pato Allenpkins ST[facility]ENDER Work Phone: [facility] 03-03-2023 18:57-0500 Body weight 153.9 kg [facility] Pato Allenpkins ST[facility] TENDER Work Phone: [facility] 03-03-2023 16:21-0500 Body height 165.1 cm [facility] Pato Mccall ST[facility] TENDER Work Phone: [facility] 03-02-2023 10:29-0500 Body mass index (BMI) [Ratio] 56 kg/m2 [facility] Pato Mccall ST[facility]ER Work Phone: [facility] 03-02-2023 10:29-0500 Body temperature 98 [degF] [facility] Pato Bannock STILL TENDER Work Phone: [facility] 03-02-2023 10:29-0500 Body weight 152.86 kg [facility] Pato Allenpkins ST[facility] TENDER Work Phone: [facility] 03-02-2023 10:29-0500 Diastolic blood pressure 76 mm[Hg] [facility] Pato Mccall ST[facility] TENDER Work Phone: [facility] 03-02-2023 10:29-0500 Heart rate 93 /min [facility] Pato Bannock STILL TENDER Work Phone: [facility] 03-02-2023 10:29-0500 Respiratory rate 18 /min [facility] Pato Mccall ST[employer] TENDER Work Phone: [facility] 03-02-2023 10:29-0500 SaO2% (BldA) [Mass fraction] 100 % [facility] Pato Mccall ST[facility] TENDER Work Phone: [facility] 03-02-2023 10:29-0500 Systolic blood pressure 155 mm[Hg] [facility] Pato Mccall ST[facility] TENDER Work Phone: [facility] 02-11-2023 13:22-0500 Body mass index (BMI) [Ratio] 56.7 kg/m2 [facility] Ptao Mccall STILL TENDER Work Phone: [facility] 02-11-2023 13:22-0500 Body weight 154.67 kg [facility] Pato Mccall ST[employer] TENDER Work Phone: [facility] 02-11-2023 13:22-0500 Diastolic blood pressure 91 mm[Hg] [facility] Pato Mccall ST[facility] TENDER Work Phone: [facility] 02-11-2023 13:22-0500 Heart rate 75 /min [facility] Pato Mccall ST[facility] TENDER Work Phone: [facility] 02-11-2023 13:22-0500 Respiratory rate 22 /min [facility] Pato Mccall ST[facility] TENDER Work Phone: [facility] 02-11-2023 13:22-0500 SaO2% (BldA) [Mass fraction] 100 % [facility] Pato Mccall [facility]ER Work Phone: [facility] 02-11-2023 13:22-0500 Systolic blood pressure 179 mm[Hg] [facility] Pato Mccall ST[facility] TENDER Work Phone: [facility] 01-30-2023 13:53-0500 Body temperature 98 [degF] [facility] Pato Mccall ST[facility] TENDER Work Phone: [facility] 01-30-2023 13:53-0500 Diastolic blood pressure 79 mm[Hg] [facility] Pato Mccall ST[facility] TENDER Work Phone: [facility] 01-30-2023 13:53-0500 Heart rate 90 /min [facility] Pato Mccall [facility]ENDER Work Phone: [facility] 01-30-2023 13:53-0500 Respiratory rate 18 /min [facility] Pato Mccall ST[facility] TENDER Work Phone: [facility] 01-30-2023 13:53-0500 Systolic blood pressure 154 mm[Hg] [facility] Pato Allenpkins ST[facility] TENDER Work Phone: [facility] 01-30-2023 13:00-0500 SaO2% (BldA) [Mass fraction] 97 % [facility] Pato Allenpkins ST[facility] TENDER Work Phone: [facility] 01-30-2023 12:01-0500 Body height 165.1 cm [facility] Pato Allenpkins ST[facility] TENDER Work Phone: [facility] 01-30-2023 12:01-0500 Body mass index (BMI) [Ratio] 55 kg/m2 [facility] Pato Allenpkins ST[facility] TENDER Work Phone: [facility] 01-30-2023 12:01-0500 Body weight 149.86 kg [facility] Pato Stefany STILL TENDER Work Phone: [facility] 01-24-2023 01:15-0500 Diastolic blood pressure 47 mm[Hg] [facility] Pato Allenpkins ST[facility] TENDER Work Phone: [facility] 01-24-2023 01:15-0500 Heart rate 82 /min [facility] Pato Allenpkins ST[facility] TENDER Work Phone: [facility] 01-24-2023 01:15-0500 Respiratory rate 23 /min [facility] Pato Allenpkins STILL TENDER Work Phone: [facility] 01-24-2023 01:15-0500 SaO2% (BldA) [Mass fraction] 95 % [facility] Pato Allenpkins STILL TENDER Work Phone: [facility] 01-24-2023 01:15-0500 Systolic blood pressure 136 mm[Hg] [facility] Pato Allenpkins STILL TENDER Work Phone: [facility] 01-23-2023 22:37-0500 Body temperature 97.3 [degF] [facility] Pato Mccall ST[facility]ENDER Work Phone: [facility] 01-23-2023 22:21-0500 Body height 165.1 cm [facility] Pato Allenpkins [facility]ENDER Work Phone: [facility] 01-23-2023 22:21-0500 Body mass index (BMI) [Ratio] 56.5 kg/m2 [facility] Pato Stefany ST[facility] TENDER Work Phone: [facility] 01-23-2023 22:21-0500 Body weight 154.22 kg [facility] Pato Bannock STILL TENDER Work Phone: [facility] 01-10-2023 14:22-0500 Body temperature 97.6 [degF] [facility] Pato Mccall STILL TENDER Work Phone: [facility] 01-10-2023 14:22-0500 Diastolic blood pressure 60 mm[Hg] [facility] Pato Mccall STILL TENDER Work Phone: [facility] 01-10-2023 14:22-0500 Heart rate 65 /min [facility] Pato Bannock STILL TENDER Work Phone: [facility] 01-10-2023 14:22-0500 Respiratory rate 18 /min [facility] Pato Bannock ST[facility] TENDER Work Phone: [facility] 01-10-2023 14:22-0500 SaO2% (BldA) [Mass fraction] 98 % [facility] Pato Bannock STILL TENDER Work Phone: [facility] 01-10-2023 14:22-0500 Systolic blood pressure 146 mm[Hg] [facility] Pato Mccall ST[facility]ENDER Work Phone: [facility] 01-10-2023 01:41-0500 Inhaled oxygen concentration 21 % [facility] Pato Bannock STILL TENDER Work Phone: [facility] 01-08-2023 16:10-0500 Body height 165.1 cm [facility] Pato Mccall ST[facility] TENDER Work Phone: [facility] 01-08-2023 16:10-0500 Body weight 153.5 kg [facility] Pato Mccall ST[facility]ENDER Work Phone: [facility] 01-07-2023 09:00-0500 Inhaled oxygen flow rate 2 L/min [facility] Pato Mccall ST[facility]ENDER Work Phone: [facility] 01-05-2023 14:54-0500 Body mass index (BMI) [Ratio] 56.2 kg/m2 [facility] Pato Mccall ST[facility]ENDER Work Phone: [facility] 01-05-2023 13:14-0500 Diastolic blood pressure 68 mm[Hg] [facility] 01-05-2023 13:14-0500 Heart rate 92 /min [facility] 01-05-2023 13:14-0500 Inhaled oxygen flow rate 2 L/min [facility] 01-05-2023 13:14-0500 Respiratory rate 16 /min [facility] 01-05-2023 13:14-0500 SaO2% (BldA) [Mass fraction] 98 % [facility] 01-05-2023 13:14-0500 Systolic blood pressure 143 mm[Hg] [facility] 01-05-2023 10:40-0500 Body temperature 97.3 [degF] [facility] 01-05-2023 09:14-0500 Body height 165.1 cm [facility] 01-05-2023 09:14-0500 Body mass index (BMI) [Ratio] 63.7 kg/m2 [facility] 01-05-2023 09:14-0500 Body weight 173.72 kg [facility] 09-27-2022 17:14-0400 Diastolic blood pressure 85 mm[Hg] [facility] 09-27-2022 17:14-0400 Systolic blood pressure 161 mm[Hg] [facility] 09-27-2022 15:37-0400 Body mass index (BMI) [Ratio] 45.3 kg/m2 [facility] 09-27-2022 15:37-0400 Body weight 123.7 kg [facility] 09-27-2022 15:33-0400 Body height 165.1 cm [facility] 09-27-2022 15:33-0400 Body temperature 98 [degF] [facility] 09-27-2022 15:33-0400 Heart rate 94 /min [facility] 09-27-2022 15:33-0400 Respiratory rate 15 /min [facility] 09-27-2022 15:33-0400 SaO2% (BldA) [Mass fraction] 95 % [facility] Encounters Encounter Date Encounter Type Care Provider Facility Start: 11-21-2024 ambulatory GULSHAN [facility] y:[facility] Start: 07-23-2024 End: 07-23-2024 Emergency department patient visit Pato SHAVER Work Phone: -Emergency Department Work Phone: Start: 02-07-2024 End: 02-07-2024 ambulatory PATO MCCALL NETWORK MGR - [employer]SEM[employer]ER [employer] Facility:[facility] Start: 02-07-2024 End: 02-07-2024 Patient encounter procedure LIZA WYNN DO [facility] Start: 11-24-2023 End: 11-28-2023 ambulatory KEYANNA BARRETTETLER NETWORK MGR-ASSEMBLER [employer] Facility:[facility] Start: 11-24-2023 End: 11-28-2023 Outreach Lab KEYANNA BARRETTETLER NETWORK MGR-ASSEMBLER [employer] [facility] Start: 10-15-2023 End: 10-19-2023 ambulatory PATO MCCALL NETWORK MGR - [employer]SEM[employer]ER [employer] Facility:[facility] Start: 10-15-2023 End: 10-19-2023 Outreach Lab PATO MCCALL NETWORK MGR - AS[employer]ER [employer] [facility] Start: 07-15-2023 End: 07-15-2023 ambulatory PATO MCCALL NETWORK MGR - [employer]ER [employer] Facility:[facility] Start: 07-15-2023 End: 07-15-2023 Patient encounter procedure PATO MCCALL NETWORK MGR - ASSEM[employer]ER [employer] [facility] Start: 07-12-2023 End: 07-16-2023 ambulatory PATO MCCALL NETWORK MGR - [employer] Facility:[facility] Start: 05-21-2023 End: 05-21-2023 ambulatory STILL TENDER-C Pato Mccall STILL TENDER Work Phone: [facility] Work Phone: Start: 05-21-2023 End: 05-21-2023 Patient encounter procedure STILL TENDER-C Pato Mccall STILL TENDER Work Phone: [facility]-Laboratory Work Phone: Start: 03-31-2023 End: 03-31-2023 Patient encounter procedure STILL TENDER-C Pato Mccall STILL TENDER Work Phone: [facility] Work Phone: Start: 03-03-2023 End: 03-03-2023 Emergency department patient visit STILL TENDER-C Pato Mccall STILL TENDER Work Phone: [facility]-Emergency Department Work Phone: Start: 03-02-2023 End: 03-02-2023 Patient encounter procedure STILL TENDER-C Pato Mccall STILL TENDER Work Phone: [facility]-Radiology, [facility] Work Phone: Start: 03-02-2023 End: 03-02-2023 Patient encounter procedure STILL TENDER-C Pato Mccall STILL TENDER Work Phone: [facility] Work Phone: Start: 02-11-2023 End: 02-11-2023 Patient encounter procedure STILL TENDER-C Pato Mccall STILL TENDER Work Phone: [facility] Work Phone: Start: 01-30-2023 End: 01-30-2023 Emergency department patient visit STILL TENDER-C Pato Mccall STILL TENDER Work Phone: [facility]-Emergency Department Work Phone: Start: 01-23-2023 End: 01-24-2023 Emergency department patient visit STILL TENDER-C Pato Mccall STILL TENDER Work Phone: [facility]-Emergency Department Work Phone: Start: 01-10-2023 Non-patient / Non-visit STILL TENDER-C R chas Manzokins STILL TENDER Work Phone: [facility] Work Phone: Start: 01-09-2023 Non-patient / Non-visit STILL TENDER-C R chas Stefany STILL TENDER Work Phone: [facility] Work Phone: Start: 01-08-2023 Non-patient / Non-visit STILL TENDER-C R chas Stefany STILL TENDER Work Phone: [facility] Work Phone: Start: 01-07-2023 Non-patient / Non-visit STILL TENDER-C R chas Stefany STILL TENDER Work Phone: [facility] Work Phone: Start: 01-06-2023 Non-patient / Non-visit STILL TENDER-C R chas Bannock STILL TENDER Work Phone: [facility] Work Phone: Start: 01-06-2023 Non-patient / Non-visit STILL TENDER-C R ichard Bannock STILL TENDER Work Phone: [facility] Start: 01-05-2023 Non-patient / Non-visit STILL TENDER-C R ichard Bannock STILL TENDER Work Phone: [facility] Start: 01-05-2023 End: 01-10-2023 Evaluation and management of inpatient [facility]-Progressive Care Unit Work Phone: Start: 09-27-2022 End: 09-27-2022 Emergency department patient visit [facility]-Emergency Department Work Phone: Start: 06-03-2022 End: 06-03-2022 ambulatory [facility] Work Phone: Start: 06-03-2022 End: 06-03-2022 Patient encounter procedure [facility]-Laboratory, [place] Start: 12-11-2021 End: 11-17-2023 OTHER THERAPY PATO MCCALL NETWORK MGR - ASSEM[employer]ER [employer] [facility] Start: 11-01-2021 End: 11-01-2021 ambulatory [facility] Work Phone: Start: 11-01-2021 End: 11-01-2021 Patient encounter procedure [facility]Laboratory Procedures Date Procedure Procedure Detail Performing Clinician Start: 07-23-2024 Urnls dip stick/tabl et reagent auto microscopy Pato Mccall STILL TENDER-C Work Phone: Start: 07-23-2024 Plain chest X-ray Susiyuridia Mccall STILL TENDER-C Work Phone: Start: 07-23-2024 Estimated creatinine clearance Pato Mccall STILL TENDER-C Work Phone: Start: 03-02-2023 Plain chest X-ray STILL TENDER-C Pato Mccall STILL TENDER Work Phone: Start: 01-30-2023 Plain chest X-ray STILL TENDER-C Pato Mccall STILL TENDER Work Phone: Start: 01-24-2023 CT angiography of ch est with contrast STILL TENDER-C Pato Mccall STILL TENDER Work Phone: Start: 01-23-2023 Plain chest X-ray STILL TENDER-C Pato Mccall STILL TENDER Work Phone: Start: 01-09-2023 Investigation of tra nsfusion reaction STILL TENDER-C Pato Mccall STILL TENDER Work Phone: Start: 01-09-2023 Respiratory microbia l culture STILL TENDER-C Pato Mccall STILL TENDER Work Phone: Start: 01-07-2023 Bacteria identified in Blood by Culture STILL TENDER-C Pato Manzokins STILL TENDER Work Phone: Start: 01-07-2023 Urine culture STILL TENDER-C Domi Mccall STILL TENDER Work Phone: Start: 01-05-2023 CT angiography of ch est with contrast Start: 01-05-2023 Plain chest X-ray Start: 06-01-2018 Glaucoma screening DOMI MCCALL NETWORK MGR - [employer] Comment on above: Dr. Solomon Start: 06-01-2018 Ophthalmic examinati on and evaluation PATO MANZOKINS NETWORK MGR - ASSEM[employer] Comment on above: Dr. Solomon-Non proli ferative Retinopathy Start: 08-25-2017 Cardiac catheterization PATO MANZOKINS NETWORK MGR - ASSEM[employer] Comment on above: [facility]-Dr. Ford Start: 08-25-2017 Cardiovascular stres s testing PATO MCCALL NETWORK MGR - [employer] Comment on above: [facility] Start: 08-25-2017 Echocardiography GABBY MCCALL NETWORK MGR - ASSEMBLER [employer] Comment on above: [facility] Start: 02-08-2017 Extraction of cataract PATO MCCALL NETWORK MGR - [employer] Comment on above: one 02/24, one 04/25 Start: 02-08-1994 Cholecystectomy PATO MCCALL NETWORK MGR - [employer]SEM[employer] Adenoid excision PATO DINGARACELI NETWORK MGR - ASSEM[employer]ER [employer] Appendectomy PATO LIMA S NETWORK MGR - ASSEMBLER [employer] Comment on above: age 10 Plan of Treatment Date Care Activity Detail Author Start: 07-23-2024 [facility] Start: 07-23-2024 [facility] Start: 03-03-2023 [facility] Start: 01-30-2023 [facility] Start: 01-24-2023 [facility] Start: 01-15-2023 [facility] Start: 01-14-2023 [facility] Start: 01-13-2023 [facility] Start: 01-12-2023 [facility] Start: 01-11-2023 [facility] Start: 01-10-2023 [facility] Start: 01-10-2023 Patient discharge [facility] Start: 01-09-2023 Provision of activity privileges [facility] Start: 01-09-2023 Respiratory microbial culture Respiratory Culture [facility] Start: 01-09-2023 Care planning and problem solving actions [facility] Start: 01-07-2023 Methicillin resistant Staphylococcus aureus screening test [facility] Start: 01-07-2023 End: 01-07-2023 Blood culture [facility] Start: 01-07-2023 [facility] Start: 01-07-2023 Bacteria identified in Blood by Culture Blood Culture [facility] Start: 01-07-2023 Patient referral [facility] Work Phone: Start: 01-07-2023 Inhalation therapy procedure [facility] Start: 01-06-2023 Continuous pulse oximetry [facility] Start: 01-06-2023 Notification of physician [facility] Start: 01-06-2023 Patient education [facility] Start: 01-06-2023 Provision of activity privileges [facility] Start: 01-06-2023 Pulse taking [facility] Start: 01-06-2023 Taking patient vital signs [facility] Start: 01-06-2023 Wound care [facility] Start: 01-06-2023 [facility] Start: 01-06-2023 Catheterization of vein [facility] Start: 01-06-2023 Medication not administered [facility] Start: 01-06-2023 Notification of physician [facility] Start: 01-06-2023 [facility] Start: 01-06-2023 Dual pressure spontaneous ventilation support [facility] Start: 01-05-2023 Following clinical pathway protocol [facility] Start: 01-05-2023 Ambulation without limitation [facility] Start: 01-05-2023 Assessment of risk of venous thromboembolism [facility] Start: 01-05-2023 Care regimes management [facility] Start: 01-05-2023 Continuous positive airway pressure ventilation treatment [facility] Start: 01-05-2023 Insertion of catheter into peripheral vein [facility] Start: 01-05-2023 Notification of physician [facility] Start: 01-05-2023 Oxygen therapy [facility] Start: 01-05-2023 Patient referral to dietitian [facility] Start: 01-05-2023 Providing care according to standard [facility] Start: 01-05-2023 Referral to air cargo specialist supervisor [facility] Start: 01-05-2023 Referral to occupational therapist [facility] Start: 01-05-2023 Referral to service [facility] Start: 01-05-2023 [facility] Start: 01-05-2023 Respiratory Panel (PCR) Respiratory Panel (PCR) [facility] Start: 01-05-2023 Verification routine [facility] Start: 01-05-2023 Bacteria identified in Sputum by Culture [facility] Start: 01-05-2023 Legionella pneumophila Ag [Presence] in Urine [facility] Start: 01-05-2023 Streptococcus pneumoniae antigen assay [facility] Start: 01-05-2023 Hospital admission, emergency, from emergency room, medical nature [facility] Start: 01-05-2023 Admission procedure [facility] Start: 01-05-2023 [facility] Start: 01-05-2023 Patient referral to [facility] Patient Education [facility] Work Phone: Patient referral [facility] Work Phone: Respiratory pathogen s DNA and RNA panel - Respiratory specimen by LADARIUS with probe detection [facility] Immunizations Immunization Date Immunization Notes Care Provider Fa cility 11-14-2023 influenza virus vaccine, unspecified formulation PATO MCCALL APRN - ASSEMBLER [employer] [facility] [place] 10-27-2023 SARS-CoV-2 (COVID-19 ) [id number] PATO MCCALL NETWORK MGR - ASSEMBLER [employer] [facility] 12-03-2022 influenza virus vaccine, unspecified formulation PATO MCCALL NETWORK MGR - ASSEMBLER [employer] [facility] 12-18-2021 influenza virus vaccine, unspecified formulation PATO MCCALL NETWORK MGR - ASSEMBLER [employer] [facility] 08-30-2021 SARS-CoV-2 mRNA (hsesqkblhnm-mowt-ztobz se) vaccine PATO MCCALL NETWORK MGR - ASSEMBLER [employer] [facility] 12-20-2020 influenza virus vaccine, unspecified formulation PATO MCCALL NETWORK MGR - ASSEMBLER [employer] [facility] 12-20-2020 SARS-CoV-2 mRNA (tozinameran) vaccine PATO MCCALL NETWORK MGR - ASSEMBLER [employer] [facility] 05-08-2020 SARS-CoV-2 (COVID-19 ) mRNA-1273 vaccine PATO MCCALL NETWORK MGR - ASSEMBLER [employer] [facility] 04-10-2020 SARS-CoV-2 (COVID-19 ) mRNA-1273 vaccine PATO MCCALL NETWORK MGR - ASSEMBLER [employer] [facility] Comment on above: Result Comment: 2020: [id number] 04-18-2019 zoster vaccine, live PATO MCCALL NETWORK MGR - ASSEM[employer]ER [employer] [facility] Comment on above: Result Comment: [04/08] SHINGRIX 01-11-2019 zoster vaccine recombinant PATO MCCALL NETWORK MGR - ASSEMBLER [employer] [facility] 12-05-2018 influenza virus vaccine, unspecified formulation PATO MCCALL NETWORK MGR - ASSEMBLER [employer] [facility] 12-03-2017 influenza virus vaccine, unspecified formulation PATO MCCALL NETWORK MGR - ASSEMBLER [employer] [facility] 12-03-2017 tetanus toxoid, redu candie diphtheria toxoid, and acellular pertussis vaccine, adsorbed PATO MCCALL NETWORK MGR - ASSEMBLER [employer] [facility] 11-15-2016 influenza virus vaccine, unspecified formulation PATO MCCALL NETWORK MGR - ASSEM[employer]ER [employer] [facility] 10-16-2015 influenza virus vaccine, unspecified formulation PATO MCCALL NETWORK MGR - ASSEM[employer]ER [employer] [facility] 10-16-2015 pneumococcal conjuga te vaccine, 13 valent PATO MCCALL NETWORK MGR - ASSEM[employer]ER [employer] [facility] 12-08-2013 influenza virus vaccine, unspecified formulation PATO MCCALL NETWORK MGR - ASSEMBLER [employer] [facility] Payers Date Payer Category Payer Unknown [id number] 2024 Self-pay [id number] 2024 Unknown [id number] 2024 Unknown [id number] 2024 Unknown [id number] 2023 Unknown [id number] 1965 Unknown [id number] 1965 Unknown [id number] 1965 Unknown [id number] 627 1965 Unknown [id number] 627 1965 Unknown [id number] 627 Private Health Insurance [facility] [id number] [facility] [id number] Unknown [facility] [employer] [id number] Unknown [facility] [id number] Unknown [id number] 462 Unknown [id number] 462 Social History Date Type Detail Facility Start: 11-17-2018 End: 01-23-2023 Tobacco smoking status WAIS Unknown if ever smoked [facility] Start: 1965 Sex Assigned At Female [facility] Start: 07-12-2023 End: 07-23-2024 Tobacco smoking status Ex-smoker (finding) [facility] Sex Assigned At [facility] Start: 08-23-2013 Sex Female (finding) [facility] Medical Equipment Procedure Code Equipment Code Equipment Origin al Text Equipment Identifier Dates See Instructions , Patient needs strips for her glucometer. She test once daily. Please give enough for 3 months with 1 refill., # 1 EA, 0 Refill(s), Pharmacy: [facility], 168, cm, 08/18/21 8:24:00 EDT, Height, 146.7, kg, 08/18/21 8:24:00 EDT, Dosing Weight Start: 08-18-2021 See Instructions , qs 1 month supply-Pt. to test 2-3 times per day, # 1 EA, 11 Refill(s), Pharmacy: [id number], 168, cm, 08/18/21 8:24:00 EDT, Height, 146.7 Start: 08-18-2021 See Instructions , BD UF 8mm 31 G (short) qs 1 month supply, # 1 EA, 11 Refill(s), Pharmacy: [facility], 166, cm, 03/01/23 13:26:00 EST, Height, 152.5, kg, 03/01/23 13:26:00 EST, Dosing Weight Start: 04-08-2023 See Instructions , Patient needs strips for her glucometer. She test once daily. Please give enough for 3 months with 1 refill., # 1 EA, 0 Refill(s), Pharmacy: [facility], 168, cm, 08/18/21 8:24:00 EDT, Height, 146.7, kg, 08/18/21 8:24:00 EDT, Dosing Weight Start: 08-18-2021 See Instructions , qs 1 month supply-Pt. to test 2-3 times per day, # 1 EA, 11 Refill(s), Pharmacy: [id number], 168, cm, 08/18/21 8:24:00 EDT, Height, 146.7 Start: 08-18-2021 See Instructions , BD UF 8mm 31 G (short) qs 1 month supply, # 1 EA, 11 Refill(s), Pharmacy: [facility], 166, cm, 03/01/23 13:26:00 EST, Height, 152.5, kg, 03/01/23 13:26:00 EST, Dosing Weight Start: 04-08-2023 See Instructions , Patient needs strips for her glucometer. She test once daily. Please give enough for 3 months with 1 refill., # 1 EA, 0 Refill(s), Pharmacy: [facility] 074, 168, cm, 08/18/21 8:24:00 EDT, Height, 146.7, kg, 08/18/21 8:24:00 EDT, Dosing Weight Start: 08-18-2021 See Instructions , qs 1 month supply-Pt. to test 2-3 times per day, # 1 EA, 11 Refill(s), Pharmacy: [id number], 168, cm, 08/18/21 8:24:00 EDT, Height, 146.7 Start: 08-18-2021 See Instructions , BD UF 8mm 31 G (short) qs 1 month supply, # 1 EA, 11 Refill(s), Pharmacy: [facility], 166, cm, 03/01/23 13:26:00 EST, Height, 152.5, kg, 03/01/23 13:26:00 EST, Dosing Weight Start: 04-08-2023 See Instructions , Patient needs strips for her glucometer. She test once daily. Please give enough for 3 months with 1 refill., # 1 EA, 0 Refill(s), Pharmacy: [facility] 074, 168, cm, 08/18/21 8:24:00 EDT, Height, 146.7, kg, 08/18/21 8:24:00 EDT, Dosing Weight Start: 08-18-2021 See Instructions , qs 1 month supply-Pt. to test 2-3 times per day, # 1 EA, 11 Refill(s), Pharmacy: [facility] 074, 168, cm, 08/18/21 8:24:00 EDT, Height, 146.7 Start: 08-18-2021 See Instructions , BD UF 8mm 31 G (short) qs 1 month supply, # 1 EA, 11 Refill(s), Pharmacy: [facility], 166, cm, 03/01/23 13:26:00 EST, Height, 152.5, kg, 03/01/23 13:26:00 EST, Dosing Weight Start: 04-08-2023 See Instructions , Patient needs strips for her glucometer. She test once daily. Please give enough for 3 months with 1 refill., # 1 EA, 0 Refill(s), Pharmacy: [facility] 074, 168, cm, 08/18/21 8:24:00 EDT, Height, 146.7, kg, 08/18/21 8:24:00 EDT, Dosing Weight Start: 08-18-2021 See Instructions , qs 1 month supply-Pt. to test 2-3 times per day, # 1 EA, 11 Refill(s), Pharmacy: [facility] 074, 168, cm, 08/18/21 8:24:00 EDT, Height, 146.7 Start: 08-18-2021 See Instructions , BD UF 8mm 31 G (short) qs 1 month supply, # 1 EA, 11 Refill(s), Pharmacy: [facility], 166, cm, 03/01/23 13:26:00 EST, Height, 152.5, kg, 03/01/23 13:26:00 EST, Dosing Weight Start: 04-08-2023 Goals Date Patient Goal Desired Activity /State Functional Status Date Assessment Result Facility 01-10-2023 Functional status Activity Abili ty With Assist of 1 [facility] Work Phone: 01-09-2023 Functional status Chair [facility] Work Phone: Mental Status Date Assessment Result Facility 03-03-2023 Cognitive function Level Of Cons ciousness Awake;Alert;Appropriate;Follow s Commands [facility] Work Phone: 01-30-2023 Cognitive function Voice/Name [facility] Work Phone: 01-23-2023 Cognitive function Voice/Name [facility] Work Phone: 01-10-2023 Cognitive function Voice/Name [facility] Work Phone: Clinical Notes 09-27-2022 to 07-23-2024 Note Date & Type Note Facility 07-23-2024 Radiology Diagnostic study note [facility] Imaging Services [address], [place] [address] Chest 1 View (Portable) MR#: [id number] Acct: [id number] Name: SHADE IBARRA Rep #: [id number] : 1965 F 59 From: Karla Saenz MD PCP: Pato Mccall, STILL TENDER-C Status: REG ER Study:Chest 1 View (Portable) Date of Exam: 07/23/24 Exam# [id number] Ordering Dr: Claire Vee DO PROCEDURE: CHEST 1 VIEW (PORTABLE) 07/23/2024 REASON FOR EXAM: DYSPNEA TECHNIQUE: Frontal view of the chest. COMPARISON: 03/02/23 FINDINGS: Mild pulmonary vascular congestion. No focal consolidations. Cardiac silhouette is mildly enlarged. No pleural effusion or pneumothorax. No acute fractures. RAD/Chest 1 View (Portable) IMPRESSION: Mild pulmonary vascular congestion. No focal consolidations. Mild cardiomegaly. Reading Location: [id number] CC: CHHAYA Mccall; Dr. Harjit Vee, DO ~ Body Care Manager: Signed [facility] 11-26-2023 Note . MICRO - Microbiology PROCEDURE: [...] Locations *1: This test was performed at: [facility], [address] [place] [address], [facility] , [facility] 10-18-2023 Note . MICRO - Microbiology [...] Locations *1: This test was performed at: [facility], [address] [place] [address], [address] , [facility] 01-10-2023 Discharge summary Note Date/Time January 10, 2023 2:42pm [facility] Medical Records Department [address] [place] [address] Discharge Summary 01/10/23 1442 MR#: [id number] Acct: [id number] Name: SHADE IBARRA Rep #:[id number] : 1965 57 From: Tasha Kim MD PCP: CHHAYA Malcolm tus:DIS IN Location: [facility] [id number] Providers Date of Admission: 01/05/23 Date of Discharge: 01/10/23 Primary Care Physician: CHHAYA Malcolm Consultations 11/28/23 14:53 Consult: Cardiology Routine Consulting Provider: Varun [...] type 2 diabetes mellitus who presented to [facility] 01/05/2023 with worsening shortness of breath. Patient [...] to schedule your hospital follow-up appointment (ph [phone]) -Your right lung was noted to have [...] new prescriptions have been sent to the [facility] in [place] as it is open on Sundays -Please [...] % (Auto) 57.6, Lymph % (Auto) 30.2, [place] % (Auto) 7.1, Eos % (Auto) 3.3, [...] Tasha Kim Primary Care Provider: Pato Mccall STILL TENDER Consulting Providers: Varun Guzman; Atul Cardozo Instructions [...] to schedule your hospital follow-up appointment (ph [phone]) -Your right lung was noted to have [...] new prescriptions have been sent to the [facility] in [place] as it is open on Sundays -Please [...] - Active Staff] - Pato Mccall NP, CHHAYA [Primary Care Provider] - Within 1 Week Disposition Disposition (needs filled in before D/C Order can be placed): Home, Self Care Charges/Coding Visit Charges Inpatient E&M: 35525 Disch Hosp >30min 01/10/23 1655 <Electronically signed by Tasha Kim MD> Cosigner Signature (if applicable): CC: CHHAYA Mccall; Dr. Tasha Kim MD~ Signed [facility] Work Phone: 1(767) 596-237712-03-2023 Discharge summary Author Tasha Kim [facility] January 10, 2023 2:41pm Note Date/Time January 10, 2023 2 :17pm [facility] Medical Records Department [address] [place] [address] Instructions for Home/Discharge Instructions 01/10/23 1415 MR#: [id number] Acct: [id number] Name: SHADE IBARRA Rep #:[id number] : 1965 57 From: Tasha Kim MD [...] Tasha Kim Primary Care Provider: Pato Mccall NP Consulting Providers: Varun Guzman; Atul Cardozo Instructions [...] new prescriptions have been sent to the [facility] in [place] as it is open on Sundays -Please [...] - Active Staff] - Pato Mccall NP, STILL TENDER-C [Primary Care Provider] - Within 1 Week Disposition Disposition (needs filled in before D/C Order can be placed): Home, Self Care 01/10/23 1441<Electronically signed by Tasha Kim MD>Tasha Kim MD CC: STILL TENDER-C Pato Mccall; Dr. Atul Cardozo DO; Dr. Varun Guzman MD ~ Signed [facility] Work Phone: 1(759) 530-385512-03-2023 Discharge summary Author [facility] January 10, 2023 2:41pm Note Date/Time January 10, 2023 2 :17pm [facility] Medical Records Department [address] [place] [address] Instructions for Home/Discharge Instructions 01/10/23 1415 MR#: [id number] Acct: [id number] Name: SHADE IBARRA Rep #:[id number] : 1965 57 From: Tasha Kim MD [...] Tasha Kim Primary Care Provider: Pato Mccall NP Consulting Providers: Varun Guzman; Atul Cardozo Instructions [...] new prescriptions have been sent to the [facility] in [place] as it is open on Sundays -Please [...] - Active Staff] - Pato Mccall NP, STILL TENDER-C [Primary Care Provider] - Within 1 Week Disposition Disposition (needs filled in before D/C Order can be placed): Home, Self Care 01/10/23 1441<Electronically signed by Tasha Kim MD>Tasha Kim MD CC: STILL TENDER-C Pato Mccall; Dr. Atul Cardozo DO; Dr. Varun Guzman MD ~ Signed [facility] Work Phone: 1(438) 535-506912-02-2023 Consult note Author [facility] January 09, 2023 5:27pm Note Date/Time January 07, 2023 6:13pm [facility] Medical Records Department [address] [place] [address] Pharmacokinetic/Renal -Consult 01/07/231811 MR#: [id number] Acct: [id number] Name: SHADE IBARRA Rep #:[id number] : 1965 57 From: Ben Hoffman PCP: CHHAYA Malcolm Sta tus:ADM IN Y Location: [place] [address] Consult [facility]iotic Management Pharmacy has been consulted [...] [date and time ordered]: 01/09/23 @ 0530 01/07/231814 <Electronically signed by Ben Velazco r> Date _ Ben Hoffman 01/09/23 1727 <Electronically signed by Tasha Kim MD> Cosigner Signature (if applicable): Date Tasha Kim MD CC: ~ Signed [facility] Work Phone: 1([phone]) 900-106212-02-2023 Consult note Author Dio Grove [facility] January 09, 2023 12:10pm Note Date/Time January 09, 2023 1 2:05pm [facility] Medical Records Department [address] [place] [address] Pharmacokinetic/Renal -Consult 01/09/23 1205 MR#: [id number] Acct: [id number] Name: SHADE IBARRA Rep #:[id number] : 1965 57 From: Dio Grove PCP: Pato Mccall, CHHAYA Rico tus:ADM IN Location: [place] [address] Consult Antibiotic Management Pharmacy has been consulted [...] signed by Dio Grove> Date _ Dio Peñaloza Signature (if applicable): Date CC: ~ Signed [facility] Work Phone: 1([phone]) 674-162412-02-2023 Progress note Author Tasha Kim [facility] January 09, 2023 10:20am Note Date/Time January 09, 2023 1 0:20am [facility] Medical Records Department [address] [place] [address] Progress Note - Hospitalist 01/09/23 1015 MR#: [id number] Acct: [id number] Name: SHADE IBARRA Rep #:[id number] : 1965 57 From: Tasha Kim MD PCP: Pato Mccall, CHHAYA Rico tus:ADM IN Location: [place] [address] Reason for Visit Reason for Visit: Diagnoses [...] % (Auto) 61.7, Lymph % (Auto) 23.6, [place]% (Auto) 11.4 H, Eos % (Auto) 2.0, [...] is a 57-year-old female who presented to [facility] ED on 12/28/2022 with chest pain and [...] 40 minutes. Charges/Coding Visit Charges Inpatient E&M: 20880 Subs Hosp L2 01/09/23 1020 <Electronically signed by Tasha Kim MD> Cosigner Signature (if applicable): CC: ~ Signed [facility] Work Phone: 1(267) 421-553512-02-2023 Progress note Author Tasha Kim [facility] January 09, 2023 10:20am Note Date/Time January 09, 2023 1 0:20am [facility] Medical Records Department [address] [place] [address] Progress Note - Hospitalist 01/09/23 1015 MR#: [id number] Acct: [id number] Name: SHADE IBARRA Rep #:[id number] : 1965 57 From: Tasha Kim MD PCP: Pato Mccall, CHHAYA Rico tus:ADM IN Location: [place] [address] Reason for Visit Reason for Visit: Diagnoses [...] % (Auto) 61.7, Lymph % (Auto) 23.6, [place]% (Auto) 11.4 H, Eos % (Auto) 2.0, [...] is a 57-year-old female who presented to [facility] ED on 12/28/2022 with chest pain and [...] 40 minutes. Charges/Coding Visit Charges Inpatient E&M: 11218 Subs Hosp L2 01/09/23 1020 <Electronically signed by Tasha Kim MD> Cosigner Signature (if applicable): CC: ~ Signed [facility] Work Phone: 1([phone]) 736-180912-02-2023 Consult note Author Avi Barcenas [facility] January 09, 2023 6:39am Note Date/Time January 09, 2023 6 :39am [facility] Medical Records Department [address] [place] [address] Pharmacokinetic/Renal -Consult 01/09/23 0638 MR#: [id number] Acct: [id number] Name: SHADE IBARRA Rep #:[id number] : 1965 57 From: Avi Mcneil od PCP: CHHAYA Malcolm tus:ADM IN Y Location: [place] [address] Consult Antibiotic Management Pharmacy has been consulted [...] Signature (if applicable): Date CC: ~ Signed [facility] Work Phone: 1(613) 224-632512-01-2023 Progress note Author Tasha Kim [facility] January 08, 2023 6:30pm Note Date/Time January 08, 2023 9 :38am [facility] Medical Records Department [address] [place] [address] Progress Note - Hospitalist 01/08/23 0932 MR#: [id number] Acct: [id number] Name: SHADE IBARRA Rep #:[id number] : 1965 57 From: Tasha Kim MD PCP: CHHAYA Malcolm tus:ADM IN Location: [place] [address] Reason for Visit Reason for Visit: Diagnoses [...] Sl. Cloudy, Urine pH 6.0, Ur Specific [place] 1.015, Urine Protein 30 H, Urine Glucose [...] (Auto) 63.7, Lymph % (Auto) 18.8 L, [place] % (Auto) 14.4 H, Eos % (Auto) [...] is a 57-year-old female who presented to [facility] ED on 12/28/2022 with chest pain and [...] 51 minutes. Charges/Coding Visit Charges Inpatient E&M: 63302 Subs Hosp L3 01/08/23 1830 <Electronically signed by Tasha Kim MD> Cosigner Signature (if applicable): CC: ~ Signed [facility] Work Phone: 1(737) 574-958512-01-2023 Progress note Author Tasha Kim [facility] January 08, 2023 6:30pm Note Date/Time January 08, 2023 9 :38am [facility] Medical Records Department [address] [place] [address] Progress Note - Hospitalist 01/08/23 0932 MR#: [id number] Acct: [id number] Name: SHADE IBARRA Rep #:[id number] : 1965 57 From: Tasha Kim MD PCP: CHHAYA Malcolm tus:ADM IN Location: [place] [address] Reason for Visit Reason for Visit: Diagnoses [...] Sl. Cloudy, Urine pH 6.0, Ur Specific [place] 1.015, Urine Protein 30 H, Urine Glucose [...] (Auto) 63.7, Lymph % (Auto) 18.8 L, [place] % (Auto) 14.4 H, Eos % (Auto) [...] is a 57-year-old female who presented to [facility] ED on 12/28/2022 with chest pain and [...] CBC. Iron studies, vitamin B12, folate ordered. -11/29: Continue to monitor -01/07: Downtrended slightly but [...] 51 minutes. Charges/Coding Visit Charges Inpatient E&M: 22944 Subs Hosp L3 01/08/23 1830 <Electronically signed by Tasha Kim MD> Cosigner Signature (if applicable): CC: ~ Signed [facility] Work Phone: 1(517) 904-499111-30-2023 Progress note Author [facility] January 07, 2023 5:17pm Note Date/Time January 07, 2023 5:13pm [facility] Medical Records Department [address] [place] [address] Progress Note - Hospitalist 01/07/23 1708 MR#: [id number] Acct: [id number] Name: SHADE IBARRA Rep #:[id number] : 1965 57 From: Tasha Kim MD PCP: CHHAYA Malcolm tus:ADM IN Location: [place] [address] Hospitalist Note Patient had been doing well [...] Cosigner Signature (if applicable): CC: ~ Signed [facility] Work Phone: 1(997) 817-926911-30-2023 Progress note Author Tasha Kim [facility] January 07, 2023 5:17pm Note Date/Time January 07, 2023 5:13pm [facility] Medical Records Department [address] [place] [address] Progress Note - Hospitalist 01/07/231707 MR#: [id number] Acct: [id number] Name: SHADE IBARRA Rep #:[id number] : 1965 57 From: Tasha Kim MD PCP: CHHAYA Malcolm tus:ADM IN Location: [place] [address] Hospitalist Note Patient had been doing well [...] Cosigner Signature (if applicable): CC: ~ Signed [facility] Work Phone: [phone]) 512-800411-30-2023 Progress note Author [facility] January 07, 2023 3:34pm Note Date/Time January 07, 2023 3:25pm [facility] Medical Records Department [address] [place] [address] Progress Note - Hospitalist 01/07/23 1523 MR#: [id number] Acct: [id number] Name: SHADE IBARRA Rep #:[id number] : 1965 57 From: Tasha Kim MD PCP: Pato Mccall, STILL TENDERAnthony Rico tus:ADM IN Location: [place] [address] Reason for Visit Reason for Visit: Diagnoses [...] hr 01/06/23 16:53: POC Glucose 273 H 11/29/23 20:21: POC Glucose 327 H 01/07/23 02:43: [...] 72.9 H, Lymph % (Auto) 12.3 L, [place] % (Auto) 13.2 H, Eos % (Auto) [...] pCO2 25.2 L ABG pO2 127 H Vidal Test Positive O2 Delivery Device Cannula Vent [...] is a 57-year-old female who presented to [facility] ED on 12/28/2022 with chest pain and [...] 55 minutes. Charges/Coding Visit Charges Inpatient E&M: 20619 Subs Hosp L3 01/07/23 1534 <Electronically signed by Tasha Kim MD> Cosigner Signature (if applicable): CC: ~ Signed [facility] Work Phone: [phone]) 199-371011-30-2023 Progress note Author Tasha Kim [facility] January 07, 2023 3:34pm Note Date/Time January 07, 2023 3:25pm [facility] Medical Records Department [address] [place] [address] Progress Note - Hospitalist 01/07/23 1523 MR#: [id number] Acct: [id number] Name: SHADE IBARRA Rep #:[id number] : 1965 57 From: Tasha Kim MD PCP: Pato Mccall, STILL TENDERAnthony Rico tus:ADM IN Location: [place] [address] Reason for Visit Reason for Visit: Diagnoses [...] 72.9 H, Lymph % (Auto) 12.3 L, [place] % (Auto) 13.2 H, Eos % (Auto) [...] pCO2 25.2 L ABG pO2 127 H [place] Test Positive O2 Delivery Device Cannula Vent [...] is a 57-year-old female who presented to [facility] ED on 12/28/2022 with chest pain and [...] 55 minutes. Charges/Coding Visit Charges Inpatient E&M: 61902 Subs Hosp L3 01/07/23 1534 <Electronically signed by Tasha Kim MD> Cosigner Signature (if applicable): CC: ~ Signed [facility] Work Phone: [phone]) [phone] Progress note Author Moustapha Saini [facility] January 07, 2023 1:23am Note Date/Time January 07, 2023 1:24am [facility] Medical Records Department [address] [place] [address] Progress Note - Hospitalist 01/07/23122 MR#: [id number] Acct: [id number] Name: SHADE IBARRA Rep #:[id number] : 1965 57 From: Moustapha Saini DO PCP: CHHAYA Malcolm tus:ADM IN Location: [place] [address] Hospitalist Note Notified by nursing that patient was having fast respiratory rates. This was ongoing despite and level of oxygen, including AVAPS, nasal cannula, etc. I performed an ABG that shows a respiratory alkalosis. Appears the patient is just very anxious we will give the patient as needed lorazepam. 01/07/23122 <Electronically signed by Moustapha Saiin DO> Cosigner Signature (if applicable): CC: ~ Signed [facility] Work Phone: [phone]) 313-748811-30-2023 Progress note Author [facility] 07, 2023 1:23am Note Date/Time January 07, 2023 1:24am [facility] Medical Records Department [address] [place] [address] Progress Note - Hospitalist 01/07/23122 MR#: [id number] Acct: [id number] Name: SHADE IBARRA Rep #:[id number] : 1965 57 From: Moustapha Saini DO PCP: CHHAYA Malcolm tus:ADM IN Location: [place] [address] Hospitalist Note Notified by nursing that patient was having fast respiratory rates. This was ongoing despite and level of oxygen, including AVAPS, nasal cannula, etc. I performed an ABG that shows a respiratory alkalosis. Appears the patient is just very anxious we will give the patient as needed lorazepam. 01/07/23122 <Electronically signed by Moustapha Saini DO> Cosigner Signature (if applicable): CC: ~ Signed [facility] Work Phone: 1(408) 599-557611-29-2023 Progress note Author Tasha Kim [facility] January 06, 2023 5:20pm Note Date/Time January 06, 2023 9:17am [facility] Medical Records Department [address] [place] [address] Progress Note - Hospitalist 01/06/23914 MR#: [id number] Acct: [id number] Name: SHADE IBARRA Rep #:[id number] : 1965 57 From: Tasha Kim MD PCP: CHHAYA Malcolm tus:ADM IN Location: [place] [address] Reason for Visit Reason for Visit: Diagnoses [...] 89.6 H, Lymph % (Auto) 2.8 L, [place] % (Auto) 6.7, Eos % (Auto) 0.1, [...] is a 57-year-old female who presented to [facility] ED on 12/28/2022 with chest pain and [...] 35 minutes. Charges/Coding Visit Charges Inpatient E&M: 32513 Subs Hosp L2 01/06/23 1720 <Electronically signed by Tasha Kim MD> Cosigner Signature (if applicable): CC: ~ Signed [facility] Work Phone: 1(370) 290-734611-29-2023 Progress note Author Tasha Kim [facility] January 06, 2023 5:20pm Note Date/Time January 06, 2023 9:17am [facility] Medical Records Department [address] [place] [address] Progress Note - Hospitalist 01/06/2315 MR#: [id number] Acct: [id number] Name: SHADE IBARRA Rep #:[id number] : 1965 57 From: Tasha Kim MD PCP: CHHAYA Malcolm tus:ADM IN Location: [place] [address] Reason for Visit Reason for Visit: Diagnoses [...] 89.6 H, Lymph % (Auto) 2.8 L, [place] % (Auto) 6.7, Eos % (Auto) 0.1, [...] 10:33 EST Reading Location ID and State: [facility] / [place] Tel , Service support , Chest CTA [...] is a 57-year-old female who presented to [facility] ED on 12/28/2022 with chest pain and [...] 35 minutes. Charges/Coding Visit Charges Inpatient E&M: 11103 Subs Hosp L2 01/06/23 1720 <Electronically signed by Tasha Kim MD> Cosigner Signature (if applicable): CC: ~ Signed [facility] Work Phone: [phone]) [phone] Consult note Author Kirk Ford [facility] January 06, 2023 9:19am Note Date/Time January 06, 2023 6:58am [facility] Medical Records Department [address] [place] [address] Consultation - Cardiology 01/06/23 0655 MR#: [id number] Acct: [id number] Name: SHADE IBARRA Rep #:[id number] : 1965 57 From: Kirk Ford MD PCP: CHHAYA Malcolm Sta tus:ADM IN Location: [place] [address] Assessment & Plan Assessment/Plan (1) NSTEMI, initial [...] was consulted for further evaluation and management. [facility] Medical History (Updated 01/05/23 @ 15:04 by [...] 89.6 H, Lymph % (Auto) 2.8 L, [place] % (Auto) 6.7, Eos % (Auto) 0.1, [...] 89.6 H, Lymph % (Auto) 2.8 L, [place] % (Auto) 6.7, Eos % (Auto) 0.1, [...] Cardozo DO; Dr. Varun Guzman MD~ Signed [facility] Work Phone: 1(335) 419-473711-29-2023 History and physical note Author Atul Cardozo [facility] January 05, 2023 10:38pm Note Date/Time January 05, 2023 1:11pm [facility] Medical Records Department [address] [place] [address] H&P Exam - Hospitalist 01/05/23 1303 MR#: [id number] Acct: [id number] Name: SHADE IBARRA Rep #:[id number] : 1965 57 From: Atul shah DO PCP: CHHAYA Malcolm tus:ADM IN Location: [place] [address] HPI - General General Date of Admission: 01/05/23 Date of Service: 01/05/23 Chief Complaint: Worsening shortness of breath HPI Narrative SHADE IBARRA, is a 57 F who presented to [facility] ED on 01/05/2023 from home with worsening [...] No other acute concerns at this time. [facility] Medical History (Updated 01/05/23 @ 15:04 by [...] 89.6 H, Lymph % (Auto) 2.8 L, [place] % (Auto) 6.7, Eos % (Auto) 0.1, [...] 1.10 H, AST 31, ALT 41, Alkaline [id number] H, Troponin I High Sens 464 H*, [...] is a 57-year-old female who presented to [facility] ED on 12/28/2022 with chest pain and [...] PCR panel, urine antigens. Trend CBC. 4. JADYEN Creatinine 1.44 on admit. Baseline creatinine appears [...] 75 minutes. Charges/Coding Visit Charges Inpatient E&M: 36067 Init Hosp L3 01/05/232237 <Electronically signed by Atul Cardozo DO> Cosigner Signature (if applicable): CC: CHHAYA Mccall; Dr. Atul Cardozo DO~ Signed [facility] Work Phone: [phone]) 488-183211-29-2023 History and physical note Author Atul Cardozo [facility] January 05, 2023 10:38pm Note Date/Time January 05, 2023 1:11pm [facility] Medical Records Department [address] [facility] [place] [address] H&P Exam - Hospitalist 01/05/23 1303 MR#: [id number] Acct: [id number] Name: SHADE IBARRA Rep #:[id number] : 1965 57 From: Atul shah DO PCP: CHHAYA Malcolm tus:ADM IN Location: [place] [id number] 1 HPI - General General Date of Admission: 01/05/23 Date of Service: 01/05/23 Chief Complaint: Worsening shortness of breath HPI Narrative SHADE IBARRA, is a 57 F who presented to [facility] ED on 01/05/2023 from home with worsening [...] No other acute concerns at this time. [facility] Medical History (Updated 01/05/23 @ 15:04 by [...] 89.6 H, Lymph % (Auto) 2.8 L, [place] % (Auto) 6.7, Eos % (Auto) 0.1, [...] 1.10 H, AST 31, ALT 41, Alkaline Ykvbbwmdrrk717 H, Troponin I High Sens 464 H*, [...] is a 57-year-old female who presented to [facility] ED on 12/28/2022 with chest pain and [...] 75 minutes. Charges/Coding Visit Charges Inpatient E&M: 40525 Init Hosp L3 01/05/232237 <Electronically signed by Atul Cardozo DO> Cosigner Signature (if applicable): CC: CHHAYA Mccall; Dr. Atul Cardozo DO~ Signed [facility] Work Phone: 1(728) 253-317111-28-2023 Discharge summary Author Harjit Vee [facility] January 05, 2023 2:54pm Note Date/Time January 05, 2023 9:38am [facility] Medical Records Department [address] [place] [address] Emergency Department Summary 01/05/23 MR#: [id number] Acct: [id number] Name: SHADE IBARRA Rep #:[id number] : 1965 57 From: Harjit Ford PCP: CHHAYA Malcolm tus:ADM IN Location: [place] [address] HPI History of Present Illness Chief Complaint: [...] PE. She does not wear home oxygen. [facility] Medical History (Updated 01/05/23 @ 13:24 by [...] 89.6 H Lymph % (Auto) 2.8 L [place] % (Auto) 6.7 Eos % (Auto) 0.1 [...] Chest pain Disposition Disposition: Acute Care Hospital [facility] What to do if you have Problems For any increased pain, shortness of breath, bleeding, nausea or vomiting, chestpain, or any unexpected problems, contact your Primary Care Provider. Call [facility] ([phone]) or report to the closest Emergency Room. Call 911 if necessary. 01/05/23 3934 <Electronically signed by Harjit Vee DO> Cosigner Signature (if applicable): CC: CHHAYA Mccall ~ Signed [facility] Work Phone: 1(805) 180-535811-28-2023 Evaluation note* Diagnosis Onset Date Resolution Status Atherosclerotic heart diseas e of [place] coronary artery without angina pectoris January 05, 2023 chronic Essential (primary) hypertension chronic Paroxysmal atrial fibrillation chronic Pericardial effusion with cardiac tamponade 2014 resolved Dyspnea on exertion acute Atherosclerotic heart diseas e of [place] coronary artery without angina pectoris January 05, 2023 chronic Essential (primary) hypertension chronic Paroxysmal atrial fibrillation chronic Pericardial effusion with cardiac tamponade 2014 resolved Anemia acute Dyspnea on exertion acute Atherosclerotic heart diseas e of [place] coronary artery without angina pectoris January 05, 2023 chronic Essential (primary) hypertension chronic Paroxysmal atrial fibrillation chronic Pericardial effusion with cardiac tamponade 2014 resolved [facility] Work Phone: 1(221) 939-165008-20-2023 Discharge summary Author Issac Jose [facility] September 27, 2022 4:43pm Note Date/Time September 27, 2022 3: 48pm [facility] Medical Records Department [address] [place] [address] Emergency Department Summary 09/27/22 MR#: [id number] Acct: [id number] Name: SHADE IBARRA Rep #:[id number] : 1965 57 From: Issac Jose MD PCP: CHHAYA Malcolm Sta tus:REG ER Location: ED HPI History of [...] felt better today and went to work. [place] have a history of anxiety and depression, she does also have a history of of pericardial effusion with history of cardiac tamponade however she has a pericardial window. She has no fevers or chills. No headache. She did not fall. There is no vertiginous symptoms and she does not feel off balance. [facility] Medical History (Updated 09/27/22 @ 16:43 by [...] rhythm with a rate of 92. Normal NC interval. QTc is prolonged at 489. No [...] 75.1 H Lymph % (Auto) 16.8 L [place] % (Auto) 6.3 Eos % (Auto) 0.9 [...] (for an eye appointment tomorrow) Pato Mccall NP, STILL TENDER-C [Primary Care Provider] - 3-5 Days Disposition Disposition: Home, Self Care What to do if you have Problems For any increased pain, shortness of breath, bleeding, nausea or vomiting, chestpain, or any unexpected problems, contact your Primary Care Provider. Call [facility] ([phone]) or report to the closest Emergency Room. Call 911 if necessary. 09/27/22 1643 <Electronically signed by Issac Jose MD> Cosigner Signature (if applicable): CC: STILL TENDER-C Pato Mcacll ~ Signed [facility] Work Phone: Evaluation + Plan note Future Appointments Appointment Date:10/12/2023 09:40:00 AM Scheduled Provider:PATO MCCALL APRN, CNP Location:[facility] Appointment Type:PC OV Follow Up Future Scheduled Tests Laboratory* A1C Hemoglobin 10/12/23 * Complete Blood Count 10/12/23 * Lipid Profile 10/12/23 * PTH, Intact 10/12/23 * Vitamin D Level 10/12/23 * Complete Metabolic Panel 10/12/23 Radiology* CT Thorax w/ Contrast 01/14/23 [facility] Evaluation + Plan note Future Appointments Appointment Date:04/14/2024 09:40:00 AM Scheduled Provider:PATO MCCALL APRN, CNP Location:[facility] Appointment Type: OV Follow Up Future [...] 10/12/23 Radiology* CT Thorax w/ Contrast 01/14/23 [facility] Eveldation + Plan note Future Appointments Appointment Date:04/14/2024 09:40:00 AM Scheduled Provider:PATO MCCALL [employer] Location:[employer] [facility] Appointment Type: OV Follow Up Future Scheduled Tests Laboratory* A1C Hemoglobin 04/13/24 * Complete Blood Count 04/13/24 * Lipid Profile 04/13/24 * Albumin/Creatinine Ratio, Random Urine 04/13/24 * PTH, Intact 04/13/24 * Vitamin D Level 04/13/24 * Complete Metabolic Panel 04/13/24 [facility] evaluation noteNo assessment information available [facility] Work Phone: [email or web address] note* Diagnosis Onset Date Resolution Status Acute dyspnea acute Acute hypoxic respiratory failure acute Bilateral pleural effusion a cute Chest pain acute Community acquired pneumonia acute Elevated brain natriuretic peptide (BNP) level acute Elevated troponin acute NSTEMI, initial episode of care acute Morbid obesity [facility] Work Phone: Evaluation note* Diagnosis Onset Date Resolution Status Acute dyspnea acute Acute hypoxic respiratory failure acute Bilateral pleural effusion a cute Chest pain acute Community acquired pneumonia acute Elevated brain natriuretic peptide (BNP) level acute Elevated troponin acute NSTEMI, initial episode of care acute Essential (primary) hypertension chronic Morbid obesity [facility] Work Phone: evaluation note* Diagnosis Onset Date Resolution Status Community acquired pneumonia acute Essential (primary) hypertension chronic Morbid obesity chronic Acute dyspnea resolved Acute hypoxic respiratory failure resolved Chest pain resolved NSTEMI, initial episode of care resolved [facility] Work Phone: Evaluation note* Diagnosis Onset Date Resolution Status Community acquired pneumonia acute Essential (primary) hypertension chronic Morbid obesity chronic Acute dyspnea resolved Acute hypoxic respiratory failure resolved Chest pain resolved NSTEMI, initial episode of care resolved Atherosclerotic heart diseas e of [place] coronary artery without angina pectoris January 05, 2023 chronic Essential (primary) hypertension chronic Paroxysmal atrial fibrillation chronic Pericardial effusion with cardiac tamponade 2014 resolved Dyspnea on exertion acute Atherosclerotic heart diseas e of [place] coronary artery without angina pectoris January 05, 2023 chronic Essential (primary) hypertension chronic Paroxysmal atrial fibrillation chronic Pericardial effusion with cardiac tamponade 2014 resolved [facility] Work Phone: Hospital course Narrative No data available for this section [facility] Hospital Discharge instructions Additional Instructions FOLLOW UP WITH CARDIOLOGY SCHEDULED Instructions for [employer] copay card Go to [employer] and scroll to bottom Click "Cost, savings, and support" Request ci pay card [facility] out info [facility] Work Phone: Hospital Discharge instructions No data available for this section [facility] Progress note No data available for this section [facility] Reason for referral (narrative)No reason for referral [facility]: Family History No Family History Records Found Relationship Condition Age at Onset Recorded Date/T lynette mother Myocardial infarction Unknown Coronary artery disease Unknown Advance Directives No Advanced Directives Records Found Advance Directive Response Recorded Date/ Time Advance Directives Yes October 8:39am Living Will No October 20, 2018 8:39am Power of Restaurant Supervisor No October 8:39am Advance Directive Response Recorded Date/ Time Advance Directives Yes October 8:39am Living Will No September 27 3 3:37pm Power of Restaurant Supervisor No September 27 023 3:37pm Advance Directive Response Recorded Date/ Time Name of Medical Power of Restaurant Supervisor daughter January 05, 2023 9:28am Advance Directives Yes October 7:39am Living Will Yes January 05, 2 023 9:28am Power of Restaurant Supervisor Yes January 05, 2023 9:28am Advance Directive Response Recorded Date/ Time Name of Medical Power of Restaurant Supervisor daughter January 05, 2023 2:59pm Advance Directives Yes October 7:39am Living Will Yes January 05, 2 023 2:59pm Power of Restaurant Supervisor Yes January 05, 2023 2:59pm Advance Directive Response Recorded Date/ Time Name of Medical Power of Restaurant Supervisor daughter January 05, 2023 2:59pm Name of Medical Power of Restaurant Supervisor Rai Ibarra January 23, 2023 10:29pm Name of Medical Power of Restaurant Supervisor rai danae-daughter inga ibarra-son January 30, 2023 12:15pm Advance Directives Yes October 7:39am Living Will Yes January 30, 2 023 12:15pm Power of Restaurant Supervisor Yes January 30, 2023 12:15pm Advance Directive Response Recorded Date/ Time Name of Medical Power of Restaurant Supervisor daughter January 05, 2023 2:59pm Name of Medical Power of Restaurant Supervisor Rai Ibarra January 23, 2023 10:29pm Name of Medical Power of Restaurant Supervisor daughter March 03, 2023 6:57pm Advance Directives Yes October 7:39am Living Will Yes March 03 6:57pm Power of Restaurant Supervisor Yes March 03, 2023 6:57pm Name of Medical Power of Restaurant Supervisor rai samsonser-daughter inga ibarra-son January 30, 2023 12:15pm Advance Directive Response Recorded Date/ Time Name of Medical Power of Restaurant Supervisor daughter March 03, 2023 7:57pm Advance Directives Yes October 8:39am Living Will Yes March 03 7:57pm Power of Restaurant Supervisor Yes March 03, 2023 7:57pm Name of Medical Power of Restaurant Supervisor rai samsonser-daughter inga ibarra-son January 30, 2023 1:15pm Advance Directive Response Recorded Date/ Time Name of Medical Power of Restaurant Supervisor daughter January 05, 2023 2:59pm Name of Medical Power of Restaurant Supervisor Rai Ibarra January 23, 2023 10:29pm Advance Directives Yes October 7:39am Living Will Yes January 23, 023 10:29pm Power of Restaurant Supervisor Yes January 23, 2023 10:29pm Advance Directive Response Recorded Date/ Time Do you have a Healthcare Power of Restaurant Supervisor? Yes July 23, 2024 8:53pm Advance Directives Yes October 8:39am Chief Complaint and Reason for Visit Chief [...] NSTEMI NSTEMI NSTEMI NSTEMI CP PALPITATIONS S/P [facility] 01/10 NSTEM I / 01/23 CP / 01/30 PALP See clinical note: edema, tachycardia L.L. heydi swelling Reason for Visit Community acquired p [place] Essential (primary) hypertension Morbid obesity Acute dyspnea Acute hypoxic respiratory failure Chest pain NSTEMI, initial episode of care Atherosclerotic heart disease of [place] coronary artery without angina pectoris Essential (primary) hypertension Paroxysmal atrial fibrillation Pericardial effusion with cardiac tamponade Dyspnea on exertion Atherosclerotic heart disease of [place] coronary artery without angina pectoris Essential (primary) hypertension Paroxysmal atrial fibrillation Pericardial effusion with cardiac tamponade Chief Complaint PALPITATIONS S/P [facility] 01/10 NSTEM I 01/23 CP / 01/30 PALP See clinical note: edema, tachycardia L.L. heydi swelling 4 W FU Reason for Visit Atherosclerotic hear t disease of [place] coronary artery without angina pectoris Essential (primary) hypertension Paroxysmal atrial fibrillation Pericardial effusion with cardiac tamponade Dyspnea on exertion Atherosclerotic heart disease of [place] coronary artery without angina pectoris Essential (primary) hypertension Paroxysmal atrial fibrillation Pericardial effusion with cardiac tamponade Anemia Dyspnea on exertion Atherosclerotic heart disease of [place] coronary artery without angina pectoris Essential (primary) hypertension Paroxysmal atrial fibrillation Pericardial effusion with cardiac tamponade Chief Complaint ANXIETY NSTEMI NSTEMI NSTEMI NSTEMI NSTEMI NSTEMI NSTEMI CP Reason for Visit Community acquired p [place] Essential (primary) hypertension Morbid obesity Acute dyspnea Acute hypoxic respiratory failure Chest pain NSTEMI, initial episode of care Chief Complaint Admit Date SOB July 23, 2024 8:24 pm Summary Purpose Additional Source Comments Goals (unrecognized [...] this section No data available for this sectionGoals may be documented in an alternate section Care Teams (unrecognized sec tion and content) Team Status: Active Member Role Status Dates Dr. Alex Chavez MD Family Provider Active Pato Mccall STILL TENDER, STILL TENDER-C Primary Care Provider Active Team Status: Inactive Member Role Status Dates Pato Mccall NP, STILL TENDER-C Primary Care Provider, Attending Provider, Referring Provider Active Team Status: Inactive Member Role Status Dates Pato Mccall NP, STILL TENDER-C Primary Care Provider Active Dr. Issac Jose MD Emergency Provider Active Team Status: Inactive Member Role Status Dates Pato Mccall NP, STILL TENDER-C Primary Care Provider Active Dr. Issac Jose MD Attending Provider, Emergency Pr ovid Active Team Status: Active Member Role Status Dates Pato Mccall NP, STILL TENDER-C Primary Care Provider Active Dr. Harjit Vee , DO Emergency Provider Active Dr. Atul Cardozo , DO Admit Provider, Attending Provider Active Team Status: Active Member Role Status Dates Pato Mccall STILL TENDER, STILL TENDER-C Primary Care Provider Active Dr. Kirk Ford MD Attending Provider Active Team Status: Active Member Role Status Dates Pato Mccall STILL TENDER, STILL TENDER-C Primary Care Provider Active Dr. Harjit Vee DO Emergency Provider Active Dr. Atul Cardozo , DO Admit Provider, Other Pro vider Active Dr. Varun Guzman MD Other Provider Active Dr. Tasha Kim MD Other Provider Active Dr. Kirk Ford MD Attending Provider Active Team Status: Active Member Role Status Dates Pato Mccall STILL TENDER, STILL TENDER-C Primary Care Provider Active Dr. Harjit Vee DO Emergency Provider Active Dr. Atul Cardozo , DO Admit Provider, Other Pro vider Active Dr. Varun Guzman MD Other Provider Active Dr. Tasha Kim MD Attending Provider, Other Provid er Active Team Status: Active Member Role Status Dates Pato Mccall STILL TENDER, STILL TENDER-C Primary Care Provider Active Dr. Harjit Vee DO Emergency Provider Active Dr. Atul Cardozo , DO Admit Provider, Other Pro vider Active Dr. Varun Guzman MD Other Provider Active Dr. Tasha Kim MD Other Provider Active Dr. Moustapha Saini DO Attending Provider Active Team Status: Inactive Member Role Status Dates Pato Mccall STILL TENDER, STILL TENDER-C Primary Care Provider Active Dr. Harjit Vee DO Emergency Provider Active Dr. Atul Cardozo , DO Admit Provider, Other Pro vider Active Dr. Varun Gumzan MD Other Provider Active Dr. Tasha Kim MD Attending Provider Active Team Status: Active Member Role Status Dates Pato Mccall STILL TENDER, STILL TENDER-C Primary Care Provider Active Dr. Kirk Ford MD Attending Provider Active Dr. Atul Cardozo DO Referring Provider Active Team Status: Active Member Role Status Dates Pato Mccall STILL TENDER, STILL TENDER-C Primary Care Provider Active Dr. Harjit Vee DO Emergency Provider Active Dr. Atul Cardozo , DO Admit Provider, Other Pro vider Active Dr. Varun Guzman MD Other Provider Active Dr. Tasha Kim MD Attending Provider, Other Provid er Active Dr. Moustapha Saini DO Active Team Status: Inactive Member Role Status Dates Pato Mccall STILL TENDER, STILL TENDER-C Primary Care Provider Active Dr. Harjit Vee DO Attending Provider, Emergency Julio C lock Active Team Status: Inactive Member Role Status Dates Pato Mccall STILL TENDER, STILL TENDER-C Primary Care Provider Active Dr. Harjit Vee DO Emergency Provider Active Team Status: Inactive Member Role Status Dates Pato Mccall STILL TENDER, STILL TENDER-C Primary Care Provider, Referring Provider Active Monserrat Angulo PA, PA Attending Provider Active Team Status: Inactive Member Role Status Dates Pato Mccall STILL TENDER, STILL TENDER-C Primary Care Provider, Referring Provider Active Avi Baeza STILL TENDER, STILL TENDER-C Attending Provider Active Team Status: Active Member Role Status Dates Pato Mccall STILL TENDER, STILL TENDER-C Primary Care Provider Active Avi Baeza STILL TENDER, STILL TENDER-C Attending Provider, Referring Pro vider Active Team Status: Inactive Member Role Status Dates Pato Mccall STILL TENDER, STILL TENDER-C Primary Care Provider Active Dr. Magalys Shi MD Emergency Provider Active Team Status: Inactive Member Role Status Dates Pato Mccall STILL TENDER, STILL TENDER-C Primary Care Provider Active Avi Baeza STILL TENDER, STILL TENDER-C Attending Provider, Referring Pro vider Active Team Status: Inactive Member Role Status Dates Pato Mccall STILL TENDER, STILL TENDER-C Primary Care Provider Active Dr. Magalys Shi MD Attending Provider, Emergency Provider Active Team Status: Active Member Role Status Dates Pato Mccall STILL TENDER, STILL TENDER-C Primary Care Provider Active Team Status: Inactive Member Role Status Dates Pato Mccall STILL TENDER, STILL TENDER-C Primary Care Provider Active Start: July 23, 2024 End: July 23, 2024 Dr. Harjit Vee DO Emergency Provider Active Start: July 23, 2024 End: July 23, 2024 INFORMATION SOURCE (unrecogn ized section and content) DATE CREATED AUTHOR 07/21/2023 [facility] ([place]) DATE CREATED AUTHOR AUTHOR'S ORGANIZ ATION 07/07/2024 [facility] DATE CREATED AUTHOR AUTHOR'S ORGANIZ ATION 11/22/2024 [facility] FOR RECORDS PERTAINING TO PATIENTS WHO ARE [...] BE BASED ON THE PRIMARY CLINICAL RECORDS. [facility] [employer] [facility]. provides no warranty or guarantee of the accuracy or completeness of information in this document.
[2024-12-21 19:20] LABS: Anion Gap 14 (5-15); BUN 19 mg/dL (4-19); BUN/Creat Ratio 14.9 RATIO (10-20); Calcium,Total 9.5 mg/dL (7.6-11.0); Carbon Dioxide 22.9 mmol/L (21.0-32.0); Chloride 96 mmol/L (98-108); Estimated Creatinine Clearance 68.55 ml/min (50-250); Glucose 393 mg/dL (70-99); Potassium 4.2 mmol/L (3.3-5.1)
--- NOTE | 2024-12-21 19:25 | CT_ITS ---
PROCEDURE: CTA HEAD AND NECK W/ CONTRAST 12/21/2024 REASON FOR EXAM: FALL, LIGHTHEADED TECHNIQUE: Procedure Code: CTCTA.HDNCK Modality: CT Procedure: CTA HEAD AND NECK W/ CONTRAST Multiplanar Sagittal and Coronal images were obtained. CONTRAST: 100 cc of Isovue 370 One or more dose reduction techniques were used (e.g., Automated exposure control, adjustment of the mA and/or kV according to patient size, use of iterative reconstruction technique). COMPARISON: CT head 12/21/2024 FINDINGS: Aortic Arch: Normal size and branching pattern. No significant atherosclerotic plaque. Brachiocephalic and Subclavians: Unremarkable RIGHT Carotid: Right CCA: Unremarkable. Right ICA: Unremarkable. Maximum stenosis (NASCET): n/a Right ECA: Unremarkable. LEFT Carotid: Left CCA: Unremarkable. Left ICA: Unremarkable. Maximum stenosis (NASCET): n/a Left ECA: Unremarkable. Vertebrals: Codominant. Arise from the subclavians. Both vertebrals form the basilar. RIGHT Vertebral: Unremarkable. LEFT Vertebral: Unremarkable. Anatomy: [place] anatomy is normal. Aneurysm or avm: No intracranial aneurysms or large vascular malformations are identified. Anterior cerebral arteries: Unremarkable: Middle cerebral arteries: Unremarkable. Basilar artery: Unremarkable. Posterior cerebral arteries: Unremarkable. Other major branches of the posterior circulation: Unremarkable. Major venous structures: Unremarkable. Other findings: Neck: No lymphadenopathy. Lungs: Lung apices are clear. Bones: Bones are unremarkable. Near complete opacification of the right sphenoid sinus and partial opacification of the posterior right ethmoid air cells. CT/CTA Head AND Neck W/ Contrast IMPRESSION: Unremarkable CT angiogram of the head and neck with no hemodynamically signific ant stenosis or occlusion. Right sphenoid and ethmoid sinusitis. Reading Location[facility]
--- NOTE | 2024-12-21 19:25 | CT_ITS ---
PROCEDURE: BRAIN/HEAD WITHOUT CONTRAST 12/21/2024 REASON FOR EXAM: FALL, LIGHTHEADED TECHNIQUE: Procedure Code: CTBR Modality: CT Procedure: BRAIN/HEAD WITHOUT CONTRAST Coronal and Sagittal reconstruction series were provided. One or more dose reduction techniques were used (e.g., Automated exposure control, adjustment of the mA and/or kV according to patient size, use of iterative reconstruction technique. COMPARISON: CT head 09/23/2018 FINDINGS: There is no extra-axial or intra-axial intracranial hemorrhage. No mass effect or midline shift is seen. The ventricles, sulci, and cisterns are normal in size and shape for the patient's age. There is normal little-white matter differentiation. The posterior fossa is grossly unremarkable. The skull is unremarkable. Visualized paranasal sinuses are clear. The mastoid air cells show normal translucency. CT/Brain/Head without Contrast IMPRESSION: No intracranial hemorrhage. No mass effect or midline shift. Reading Location[facility]
--- NOTE | 2024-12-21 19:34 | RAD_ITS ---
PROCEDURE: CHEST PA AND LATERAL 12/21/2024 REASON FOR EXAM: LIGHTHEADED TECHNIQUE: Procedure Code: RADCXR Modality: DX Procedure: CHEST PA AND LATERAL COMPARISON: 07/23/2024 FINDINGS: Hardware: None. Heart: The heart size is normal. Mediastinum: The mediastinal contour is unremarkable. Lungs: The lungs are clear. No pneumothorax or pleural effusion. Bones: The bones are unremarkable. RAD/Chest PA and Lateral IMPRESSION: NO ACUTE FINDINGS. Reading Location[facility]
[2024-12-21 19:41] VITALS: BP 164/76; PULSE 67; O2SAT 96
[2024-12-21 20:00] VITALS: BP 172/69; PULSE 74; O2SAT 96
[2024-12-21 21:30] VITALS: BP 172/69; PULSE 74; RESP 16; TEMP 36.9; O2SAT 96
== END 2024-12-21 21:31 | disposition home or self-care (01) ==
PROVIDERS: Emergency Provider Student in an Organized Health Care Education/Training Program; Visit Provider Student in an Organized Health Care Education/Training Program
DX: R42 Dizziness and giddiness (principal); I48.0 Paroxysmal atrial fibrillation; E11.65 Type 2 diabetes mellitus with hyperglycemia; I25.10 Atherosclerotic heart disease of native coronary artery without angina pectoris; E66.9 Obesity, unspecified; Z87.891 Personal history of nicotine dependence; I10 Essential (primary) hypertension; J45.909 Unspecified asthma, uncomplicated; R29.700 NIHSS score 0; D72.829 Elevated white blood cell count, unspecified
CPT/HCPCS: 70450; 70496; 70498; 71046; 80048; 85025; 93005; 96360; 96361; 99285; Q9967; A4216